=== PATIENT | female | born 1935 | race African-American/Black ===

== ENCOUNTER 2022-02-15 10:37 | Outpatient (REF) | payer MEDICARE, SELFPAY ==
[2022-02-15 12:34] LABS: Free T4 (Free Thyroxine) 0.91 ng/dL (0.71-1.85); TSH reflex Free T4 0.01 uIU/mL (0.32-4.0)
[2022-02-20 20:17] LABS: Thyrotropin Receptor Antibody <1.00 IU/L (<=2.00)
[2022-02-21 16:01] LABS: Thyroid Stimulating Immunoglob <89 % baseline (<140)
== END 2022-02-15 10:38 | disposition home or self-care (01) ==
LOC: HO.LAB 10:37
PROVIDERS: PCP Internal Medicine; Visit Provider Internal Medicine
DX: E05.90 Thyrotoxicosis, unspecified without thyrotoxic crisis or storm (principal); E11.65 Type 2 diabetes mellitus with hyperglycemia; I10 Essential (primary) hypertension; N39.41 Urge incontinence
CPT/HCPCS: 36415; 83520; 84439; 84443; 84445

== ENCOUNTER 2024-02-27 17:31 | Emergency (ER) | payer MEDICARE, SELFPAY ==
--- NOTE | ~2024-02-27 | XR_ITS ---
EXAMINATION: XR KNEE, LEFT CLINICAL INFORMATION: Fall. Pain. COMPARISON: None available. TECHNIQUE: 2 views of the left knee. FINDINGS: Intramedullary gene and 2 proximal screws in the visualized proximal tibial shaft. Bones are osteopenic. Bone alignment is normal. No acute fracture or dislocation. Degenerative changes at the knee joint with medial femoral tibial joint space narrowing, osteophytes at the patellofemoral joint and lateral meniscal calcification. Small osteophyte at the quadriceps tendon insertion to the patella. No significant joint effusion. XR/XR knee LT 2V IMPRESSION: Osteopenia and degenerative changes. No acute fracture or dislocation.
--- NOTE | ~2024-02-27 | XR_ITS ---
EXAMINATION: XR FOOT, RIGHT CLINICAL INFORMATION: Pain after fall, patient in overflow. COMPARISON: Left foot 02/27/2024. TECHNIQUE: AP, lateral, and oblique views of the right foot. FINDINGS: Small dorsal calcaneal spur. Ankle joint effusion. Advanced degenerative changes on limited views of the tibiotalar joint. Heterogeneous lucencies throughout the foot are suggestive of bony demineralization. Moderate degenerative changes in the first metatarsophalangeal joint with joint space narrowing and hypertrophic change as well as metatarsus adductus, hallux valgus, and medial soft tissue bunion. Mild degenerative changes in the interphalangeal joints of the toes. XR/XR foot RT min 3V IMPRESSION: 1. Ankle joint effusion. Advanced degenerative changes on limited views of the tibiotalar joint could be evaluated with dedicated views of the ankle. 2. Moderate degenerative changes in the first metatarsophalangeal joint. 3. Mild degenerative changes in the interphalangeal joints of the toes. Heterogeneous lucencies also noted in left foot images of 02/27/2024, characteristic for osteopenia possibly on the basis of disuse or neurogenic etiology. This study was presented today, 03/03/2024, for interpretation. Stat results provided at this time as requested by referring provider.
--- NOTE | ~2024-02-27 | XR_ITS ---
EXAMINATION: XR FOOT, LEFT CLINICAL INFORMATION: Trauma COMPARISON: None available. TECHNIQUE: AP, lateral, and oblique views of the left foot. FINDINGS: Oblique mildly displaced fracture of the neck of the second metatarsal. Plate and multiple screws through the first metatarsal, hardware are intact. Moderate to severe degenerative osteoarthritic changes of the first metatarsophalangeal joint. Mild degenerative osteoarthritis of the interphalangeal joints of other toes. Heterogeneous bone radiolucencies throughout the foot suggests bone demineralization probably disuse osteopenia versus neurogenic foot degenerative arthritic changes of the ankle seen at the margin of the study.. XR/XR foot LT min 3V IMPRESSION: 1. Oblique mildly displaced fracture of the neck of the second metatarsal. 2. Underlying degenerative osteoarthritis. 3. 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
--- NOTE | ~2024-02-27 | CT_ITS ---
EXAMINATION: CT CERVICAL SPINE WITHOUT CONTRAST CLINICAL INFORMATION: Fall COMPARISON: None available. TECHNIQUE: Axial images through the cervical spine without IV contrast. Sagittal and coronal reconstructions on the technologist workstation were performed. This CT examination was performed using dose optimization techniques as appropriate, variously including the following: *Automated exposure control *Adjustment of mA and/or kV according to patient size (this includes techniques or standardized protocols for targeted exams where dose is matched to indication/reason for exam; i.e. extremities or head) *Use of iterative reconstruction technique DLP: 873 mGy-cm or combined CT of the head and cervical spine FINDINGS: Mild anterior subluxation of C3 with respect to C4, C4 with respect to C5 and C7 with respect to T1 likely degenerative. Bone alignment is otherwise normal. No fracture or dislocation. Multilevel degenerative spondylosis and degenerative disc disease greatest at C4-C5, C5-C6 and C6-C7. Degenerative changes at the C1 dens articulation. Bilateral facet arthritis. Prevertebral soft tissues are normal. Small bilateral thyroid nodules. Based on patient age and nodule size less than 1 cm, no imaging follow-up recommended. Visualized lung apices are clear. CT/CT cervical spine wo IV con IMPRESSION: Degenerative changes. No fracture or dislocation. Fleischner guidelines were followed.
--- NOTE | ~2024-02-27 | CT_ITS ---
EXAMINATION: CT HEAD WITHOUT CONTRAST CLINICAL INFORMATION: Fall COMPARISON: None available. TECHNIQUE: Contiguous axial imaging was performed from the skull base to vertex without intravenous administration of contrast. This CT examination was performed using dose optimization techniques as appropriate, variously including the following: *Automated exposure control *Adjustment of mA and/or kV according to patient size (this includes techniques or standardized protocols for targeted exams where dose is matched to indication/reason for exam; i.e. extremities or head) *Use of iterative reconstruction technique DLP: 873 mGy-cm FINDINGS: There is no evidence of an extra-axial collection. There is no evidence of intra or extra-axial hemorrhage. The ventricles and extra-axial CSF spaces are slightly prominent suggestive of mild generalized atrophy. There is mild nonspecific periventricular white matter disease. No mass, mass effect or infarct. No skull fracture. Visualized paranasal sinuses, mastoid air cells and middle ears are clear. CT/CT head/brain wo IV con IMPRESSION: No acute intracranial findings. Mild generalized atrophy and nonspecific periventricular white matter disease.
--- NOTE | ~2024-02-27 | XR_ITS ---
EXAMINATION: XR ANKLE, LEFT CLINICAL INFORMATION: Fall. Pain. COMPARISON: None available. TECHNIQUE: AP, lateral, and mortise views of the left ankle. FINDINGS: There is an intramedullary gene and 2 distal screws in the visualized distal tibial shaft. There are old healed fractures of the distal shafts of the tibia and fibula. There is surgical hardware with plates and screws an old fracture of the first metatarsal bone. There is a partially visualized fracture of the second metatarsal shaft better evaluated on foot x-ray from the same day. No acute fracture or dislocation. Normal ankle mortise. Osteopenia. Calcaneal spurs. Diffuse soft tissue swelling of the lower leg and ankle. XR/XR ankle LT min 3V IMPRESSION: Osteopenia, old fractures in post surgical changes.. No acute fracture or dislocation seen.
--- NOTE | ~2024-02-27 | XR_ITS ---
EXAMINATION: XR HIP, LEFT CLINICAL INFORMATION: Fall. Pain. COMPARISON: None available. TECHNIQUE: Two views of the left hip. One view of the pelvis FINDINGS: The bones are osteopenic. No fracture or dislocation. Arthritis at both hip joints with joint space narrowing and osteophyte formation, right greater than left. Benign-appearing sclerotic density projects over the proximal femoral shaft. Degenerative changes of the visualized lower lumbar spine. Atherosclerotic disease. XR/XR hip LT w PEL1V IMPRESSION: No fracture or dislocation. Osteopenia and degenerative changes.
[2024-02-27 17:55] VITALS: BP 135/52; BP 150/80; PULSE 20; PULSE 91; RESP 16; TEMP 36.8; O2SAT 99; BMI 26.6
[2024-02-27 18:03] LABS: Glucose, Whole Blood 301 mg/dL (60-115)
--- NOTE | 2024-02-27 18:11 | ECG_ITS ---
Test Reason : FALL Blood Pressure : / mmHG Vent. Rate : 097 BPM Atrial Rate : 097 BPM P-R Int : 198 ms QRS Dur : 086 ms QT Int : 374 ms P-R-T Axes : 074 -10 029 degrees QTc Int : 474 ms Normal sinus rhythm Nonspecific T wave abnormality Prolonged QT Abnormal ECG No previous ECGs available Referred By: Syed Piedra Electronically Signed By:MASSIMO JEWELL MD
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
[2024-02-27 19:10] LABS: Basophils Percent Auto 0.3 % (0-2); Hemoglobin 13.7 g/dl (12.0-16.0); PLT CLUMP 1; Red Cell Distribution Width 12.9 % (11.0-16.0); SCAN SMEAR FLAG 1
[2024-02-27 19:12] LABS: Eosinophils Absolute Auto 0.1 X10*3/uL (0.0-0.4); Eosinophils Percent Auto 0.8 % (0-4); Hematocrit 41.2 % (37.0-47.0); Imm Gran Abs Auto 0.03 X10*3/uL (0.00-0.03); Imm Gran Pct Auto 0.4 % (0.0-0.4); Lymphocytes Absolute Auto 2.2 X10*3/uL (1.2-4.9); Lymphocytes Percent Auto 30.2 % (20-40); MANUAL DIFF FLAG SCAN; Mean Corpuscular HGB Conc 33.3 g/dl (31.0-35.0); Mean Corpuscular Hemoglobin 30.1 pg (27.0-33.0); Mean Corpuscular Volume 90.5 fL (80.0-98.0); Monocytes Absolute Auto 0.6 X10*3/uL (0.1-1.2); Monocytes Percent Auto 8.5 % (2-11); Neutrophils Absolute Auto 4.4 x10*3/uL (2.0-8.3); Neutrophils Percent Auto 59.8 % (45-73); Red Blood Count 4.55 X10*6/uL (4.20-5.50)
--- NOTE | 2024-02-27 19:13 | MHC.EDTECH ---
Patient was biba from home ,vitals taken,ekg done and was read by Provider ,blood drawn and sent to lab ,Patient was change into hospital gown ,Patient made a phone call to her sister ,Patient resting quietly in bed .
[2024-02-27 19:15] LABS: INTERNATIONAL NORM RATIO 0.8 (0.9-1.1); Prothrombin Time 9.6 SEC (11.1-13.3)
[2024-02-27 19:22] LABS: White Blood Count 7.4 X10*3/uL (4.8-10.8)
[2024-02-27 19:27] LABS: Alanine Aminotransferase 20 U/L (0-31); Albumin Level 4.1 g/dL (3.5-5.0); Alkaline Phosphatase 131 U/L (39-117); Anion Gap 14 (12-20); Aspartate Amino Transferase 19 U/L (5-31); Bilirubin Total 0.4 mg/dL (0.0-1.0); Blood Urea Nitrogen 11 mg/dL (9-16); Calcium 9.6 mg/dL (8.4-10.2); Carbon Dioxide 25 mmol/L (22-29); Chloride 103 mmol/L (96-108); Creatinine Clr Calc Pharmacy 50.5; Estimated Glomerular Filt Rate > 60; Glucose Random 321 mg/dL (60-115); Lipase 22 U/L (8-78); Potassium 4.3 mmol/L (3.3-5.1); Sodium 138 mmol/L (135-145); Total Protein 6.9 g/dL (6.5-8.0)
[2024-02-27 19:46] LABS: Platelet Count 222 X10*3/uL (160-400)
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
[2024-02-27 19:47] LABS: SLIDE REVIEW VERIFIED
[2024-02-27] MEDS: Acetaminophen 325 MG TABLET 650 MG PO (19:58)
[2024-02-27 20:00] VITALS: BP 148/83; PULSE 92; RESP 16; TEMP 36.6; O2SAT 97
--- NOTE | 2024-02-27 20:06 | PC.NURSE ---
this rn assumed care of pt, pt resting in stretcher, no acute distress noted. pt medicated per mar for left sided pain.
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
[2024-02-27 21:42] LABS: Troponin-I High Sensitivity 15.9 ng/L (<3.5-17.0)
[2024-02-27 22:00] VITALS: BP 146/75; PULSE 93; RESP 16; TEMP 36.7; O2SAT 97
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
--- NOTE | 2024-02-27 22:56 | MHC.EDTECH ---
PATIENT BELONGING LIST DONE AND ALL BELONINGS AT BEDSIDE ,,VITALS TAKEN ,POST OPP SHOE GIVEN PATIENT ANKLE BROKEN ,PATIENT SLEEPING ,CALL LAW WITHIN PATIENT REACH .
--- NOTE | 2024-02-27 23:24 | MHC.EDTECH ---
patient blood sugar check RN awre of 260 result .
[2024-02-27 23:25] LABS: Glucose, Whole Blood 260 mg/dL (60-115)
--- NOTE | 2024-02-28 00:32 | MHC.EDTECH ---
0000 ROUNDING DONE ,PATIENT SLEEPING ,CALL LAW WITHIN PATIENT REACH .
[2024-02-28 06:21] VITALS: BP 150/83; PULSE 91; RESP 16; TEMP 36.4; O2SAT 98
--- NOTE | 2024-02-28 06:31 | MHC.EDTECH ---
Patient slept all night ,Patient awake now ,0600 rounding done ,vitals taken ,patient was change and saran care given ,450 ml urine empty from Pure wick ,Patient watching television call kilgore at Patient reach .
--- NOTE | 2024-02-28 07:55 | PC.NURSE ---
PT TRANFERED FROM MAIN ED TO OVERFLOW BED 3 VIA STRETCHER. RN TO RN REPORT RECEIVED.
[2024-02-28 08:06] VITALS: BP 152/81; PULSE 95; RESP 16; TEMP 36.4; O2SAT 99
--- NOTE | 2024-02-28 08:08 | PC.NURSE ---
PT IS A/O X 3 NO SOB/MARY NOTED SPEAKS IN FULL SENTENCES. PT SPEAKS IN FULL SENTENCES. PT DENIES ANY PAIN/DISC. BED ALARM ON. PT AWARE OF PLAN OF CARE. WILL CONTINUE TO MONITOR.
[2024-02-28] MEDS: Acetaminophen 325 MG TABLET 975 MG PO ×2 (10:17→20:00)
[2024-02-28 10:54] VITALS: BP 126/68; PULSE 100; O2SAT 68
[2024-02-28 11:53] LABS: Glucose, Whole Blood 358 mg/dL (60-115)
--- NOTE | 2024-02-28 12:56 | PHA.MEDREC ---
Pharmacy Consult ? Medication Reconciliation Pharmacy has completed the medication reconciliation. Confirmed med rec complete by nursing. Duplicate medications removed.
[2024-02-28] MEDS: Atorvastatin Calcium 10 MG TABLET PO (13:39)
[2024-02-28] MEDS: Empagliflozin 10 MG TABLET PO (13:39)
[2024-02-28] MEDS: glipiZIDE 10 MG TABLET PO (13:39)
[2024-02-28] MEDS: SITagliptin Phosphate 100 MG TABLET PO (13:39)
[2024-02-28] MEDS: Aspirin Enteric Coated 81 MG TABLET.DR PO (13:40)
[2024-02-28] MEDS: Omeprazole 20 MG CAPSULE.DR PO (13:41)
[2024-02-28 14:08] VITALS: BP 126/84; PULSE 98; RESP 14; TEMP 36.6; O2SAT 98
[2024-02-28 19:37] VITALS: BP 110/56; PULSE 107; RESP 17; TEMP 36.8; O2SAT 97
--- NOTE | 2024-02-28 20:37 | PC.NURSE ---
This insurance underwriter sales assumed care of this Pt at 1900. Pt A&Ox3, reports 10 Right shoulder pain, Pt medicated per JAN. Pt refused 2099 medication states I do not take those .
--- NOTE | 2024-02-29 06:03 | PC.NURSE ---
Pt repositioned, purewich replaced. Skin intact, warm and dry.
[2024-02-29 06:11] VITALS: BP 149/83; PULSE 97; RESP 16; TEMP 36.8; O2SAT 98
[2024-02-29] MEDS: Omeprazole 20 MG CAPSULE.DR PO (06:53)
[2024-02-29 07:34] LABS: Glucose, Whole Blood 180 mg/dL (60-115)
[2024-02-29] MEDS: Insulin Lispro 100 UNIT/ML 3 ML VIAL SUBCUT ×3 (08:11→21:45)
[2024-02-29] MEDS: Acetaminophen 325 MG TABLET 975 MG PO ×2 (08:12→18:39)
[2024-02-29] MEDS: Atorvastatin Calcium 10 MG TABLET PO (08:13)
[2024-02-29] MEDS: Aspirin Enteric Coated 81 MG TABLET.DR PO (08:13)
[2024-02-29] MEDS: SITagliptin Phosphate 100 MG TABLET PO (08:17)
[2024-02-29] MEDS: glipiZIDE 10 MG TABLET PO ×2 (08:17→21:45)
[2024-02-29] MEDS: Empagliflozin 10 MG TABLET PO (08:17)
--- NOTE | 2024-02-29 11:11 | MHC.EDTECH ---
Pt bedding linens changed. Linens now clean and dry. Assisted pt washing up. Pt moved to chair and positioned for comfort. Pt tolerated moving to chair well. New PureWick placed. Pt states she is comfortable. Patient resting at this time, respirations even and unlabored. Call kilgore placed within reach.
[2024-02-29 13:16] LABS: Glucose, Whole Blood 126 mg/dL (60-115)
[2024-02-29 14:45] VITALS: PULSE 98; RESP 16; TEMP 36.9; O2SAT 98
--- NOTE | 2024-02-29 15:15 | MHC.CM.PN ---
PT recommends STR. [facility] has offered a bed. The patient accepts the bed. The STR has started auth. Plan is to DC tomorrow via BLS. for tomorrow.
[2024-02-29 18:17] LABS: Glucose, Whole Blood 169 mg/dL (60-115)
[2024-02-29 20:34] LABS: Glucose, Whole Blood 254 mg/dL (60-115)
[2024-02-29 20:45] VITALS: BP 109/55; PULSE 96; RESP 16; TEMP 36.7; O2SAT 96
[2024-02-29] MEDS: Amitriptyline HCl 25 MG TABLET PO (21:45)
--- NOTE | 2024-02-29 21:50 | PC.NURSE ---
Patient is alert and oriented x2-place and person, forgetful at times, VSS. Patient denies any pain at rest. Patient medicated with bedtime medications. She offers no complains at this time. Pure wick in place, call kilgore in patient's reach.
--- NOTE | 2024-03-01 02:35 | PC.NURSE ---
this rn assumed care of pt, pt resting in stretcher, no acute distress noted, respirations even and unlabored, purewick in place.
[2024-03-01] MEDS: Acetaminophen 325 MG TABLET 975 MG PO ×2 (05:12→18:26)
[2024-03-01 07:17] VITALS: BP 113/59; PULSE 107; RESP 16; TEMP 36.6; O2SAT 98
--- NOTE | 2024-03-01 07:19 | PC.NURSE ---
patient awake and alert to person, place, time and situation. speaking in full, clear sentences. c/o 9/10 pain to left leg, positive csm. pt aware of plan of care for transfer to rehab today.
[2024-03-01 07:38] LABS: Glucose, Whole Blood 177 mg/dL (60-115)
[2024-03-01] MEDS: Atorvastatin Calcium 10 MG TABLET PO (07:59)
[2024-03-01] MEDS: Omeprazole 20 MG CAPSULE.DR PO (07:59)
[2024-03-01] MEDS: Insulin Lispro 100 UNIT/ML 3 ML VIAL SUBCUT ×3 (07:59→22:21)
[2024-03-01] MEDS: Aspirin Enteric Coated 81 MG TABLET.DR PO (08:00)
[2024-03-01] MEDS: glipiZIDE 10 MG TABLET PO ×2 (10:09→22:21)
[2024-03-01] MEDS: Empagliflozin 10 MG TABLET PO (10:10)
[2024-03-01] MEDS: SITagliptin Phosphate 100 MG TABLET PO (10:10)
[2024-03-01 10:12] VITALS: PULSE 100
[2024-03-01 10:48] LABS: COVID-19 Test Negative (Negative); IDNOW Serial# 58CA691E
[2024-03-01 13:26] LABS: Glucose, Whole Blood 128 mg/dL (60-115)
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
--- NOTE | 2024-03-01 16:30 | PC.NURSE ---
Patient incontinent of watery diarrhea. Christelle care and clean linen provided. Patient reports shoulder pain, patient ID bracelet missing, will obtain new bracelet and give tylenol.
[2024-03-01 16:45] LABS: Glucose, Whole Blood 246 mg/dL (60-115)
--- NOTE | 2024-03-01 16:51 | PC.NURSE ---
Patient resting comfortably at this time, patient awoken for POC and insulin administration, patient reports no pain at this time, lights dimmed, patient to nap at this time.
[2024-03-01 18:22] VITALS: BP 142/68; PULSE 110; RESP 18; TEMP 36.6; O2SAT 97
[2024-03-01 20:18] VITALS: BP 120/62; PULSE 104; RESP 16; TEMP 36.9; O2SAT 97
--- NOTE | 2024-03-01 20:19 | PC.NURSE ---
assumed care of pt 1914. pt resting comfortably in bed. incontinent of urine. saran care provided. linen changed. pt repositioned to left side. warm blankets provided. vss. pt is watching tv in room. bed alarm on. pt is axox3 at this time able to recall reason pt was brought into ED and make needs known. call kilgore within reach.
[2024-03-01 21:16] LABS: Glucose, Whole Blood 248 mg/dL (60-115)
[2024-03-01] MEDS: Amitriptyline HCl 25 MG TABLET PO (22:21)
--- NOTE | 2024-03-01 22:33 | PC.NURSE ---
pt tolerated meds well with diet gingerale per request. pt medicated per jan. lights turned off per pt request. pt is calm/cooperative pleasant at this time. bed alarm on. pt is across nurses station. nad. call kilgore and belongings within reach.
[2024-03-02] MEDS: Omeprazole 20 MG CAPSULE.DR PO (05:40)
[2024-03-02 06:00] VITALS: BP 140/78; PULSE 99; RESP 16; TEMP 36.9; O2SAT 97
--- NOTE | 2024-03-02 06:32 | PC.NURSE ---
pt was resting comfortably in bed. pt has purewick 600mL urine output. however pt found to be incontinent as well; saran care provided linen changed. pt repositioned. nad. bed alarm certification technician kilgore within reach using appropriately.
--- NOTE | 2024-03-02 06:33 | MHC.EDTECH ---
PT changed in bed
[2024-03-02 07:47] LABS: Glucose, Whole Blood 118 mg/dL (60-115)
[2024-03-02] MEDS: Empagliflozin 10 MG TABLET PO (08:33)
[2024-03-02] MEDS: Aspirin Enteric Coated 81 MG TABLET.DR PO (08:33)
[2024-03-02] MEDS: Atorvastatin Calcium 10 MG TABLET PO (08:33)
--- NOTE | 2024-03-02 08:36 | PC.NURSE ---
Assumed care of patient at 0700. Patient reports no pain at this time, morning meds given per MAR. Patient sitting up in bed eating breakfast, will continue to monitor.
[2024-03-02] MEDS: SITagliptin Phosphate 100 MG TABLET PO (09:09)
[2024-03-02] MEDS: glipiZIDE 10 MG TABLET PO ×2 (09:09→21:32)
--- NOTE | 2024-03-02 10:42 | MHC.EDTECH ---
This tech assisted Pt with getting washed up. Pt used the commode and urinated. Pt ate 100% of her breakfast and 240cc of fluids.
--- NOTE | 2024-03-02 10:45 | PC.NURSE ---
Comfort called from [facility] health services called for update, awaiting [facility] insurance auth, notified Ghislaine Moyer phone number [phone]
--- NOTE | 2024-03-02 11:25 | PC.NURSE ---
Basim from [facility] services called for update, she is going to come and see patient. Let her know [facility] is the plan, awaiting insurance auth. Her phone number is [phone] ex:[phone].
--- NOTE | 2024-03-02 12:16 | MHC.CM.ED ---
Addendum entered by Nelly Valdes 03/02/24 15:32: Received voicemail from Reginaldo at [facility] stating [facility] is not a preferred facility. Requesting call back with facilities that have denied patient. T/W attempted to reach Reginaldo via telephone at [phone]. Left message providing facilities that have denied patient. Waiting for return telephone call from [facility]. Original Note: Patient remains in ER overflow. [facility] is in the process of obtaining insurance auth. Piper from [facility] on-site to visit patient. Piper can be reached via telephone at [phone]. Patient has been referred to [facility] multiple times. Patient appears to get paranoid at night and has called Sharifa DUNN almost nightly. Piper met with patient on Monday 02/26 around 12pm. Patient was completely alert and oriented at that time per Piper. Patient's son does have a history of substance abuse issues but does not come around patient. Piper feels STR is appropriate for patient. Continue to monitor for d/c needs.
--- NOTE | 2024-03-02 12:30 | MHC.EDTECH ---
PT ate 75% of her lunch, 240cc of fluids
[2024-03-02] MEDS: Insulin Lispro 100 UNIT/ML 3 ML VIAL SUBCUT ×2 (12:38→21:33)
--- NOTE | 2024-03-02 12:41 | PC.NURSE ---
Patient sitting up in bed eating lunch, no complaints at this time.
--- NOTE | 2024-03-02 13:23 | MHC.EDTECH ---
This tech assisted PT to the commode. Pt urinated and is sitting on the side of the bed.
[2024-03-02 14:00] VITALS: BP 93/52; PULSE 76; RESP 17; TEMP 37; O2SAT 95
--- NOTE | 2024-03-02 14:02 | PC.NURSE ---
Patient currently resting in bed.
[2024-03-02 14:07] VITALS: BP 119/57
--- NOTE | 2024-03-02 16:48 | MHC.CM.ED ---
CM received a call from Ted at [facility] ([phone]). Per Ted, the medical grade shoemaker has denied request for STR. Will need a peer to peer review. Requesting provider name and contact information. Provider gone for the day. Will address in the morning. Ted requests call before 12 noon on 03/03/24.
--- NOTE | 2024-03-02 20:16 | PC.NURSE ---
pt assessed, denies any pain, oob with 1 max assist to the commode, bed ALARM
[2024-03-02] MEDS: Amitriptyline HCl 25 MG TABLET PO (21:32)
[2024-03-02 22:00] VITALS: BP 151/58; PULSE 99; RESP 16; TEMP 36.9; O2SAT 94
[2024-03-03] MEDS: Acetaminophen 325 MG TABLET 975 MG PO ×3 (01:00→21:32)
--- NOTE | 2024-03-03 01:01 | PC.NURSE ---
pt c/o right knee pain, medicated per mar
[2024-03-03 03:30] VITALS: BP 130/67; PULSE 93; RESP 12; TEMP 36.3; O2SAT 96
--- NOTE | 2024-03-03 05:22 | PC.NURSE ---
pt slept during the night, purwick in place, no pain observed
[2024-03-03] MEDS: Omeprazole 20 MG CAPSULE.DR PO (05:36)
--- NOTE | 2024-03-03 08:45 | MHC.CM.ED ---
Addendum entered by Nelly Valdes 03/03/24 12:25: Rain DANIEL spoke with Dr Richardson at [facility]. Dr Richardson requesting additional PT and OT notes stating patient requires assistance not supervision . These evals have been ordered by Rain DANIEL. Per Reginaldo at [facility], all 25 facilities locally contracted with patient's insurance will need to deny patient before they would authorize [facility]. Still waiting to hear from [facility]. Original Note: Patient remains in ER overflow. Rain DANIEL aware [facility] is declining STR. Also aware peer to peer will need to be completed. Rain DANIEL agreeable. T/W attempted to notify Reginaldo of [facility] about his via telephone at [phone]. Left message with Rain's contact information. Continue to monitor for d/c needs.
[2024-03-03] MEDS: Empagliflozin 10 MG TABLET PO (08:52)
[2024-03-03] MEDS: glipiZIDE 10 MG TABLET PO ×2 (08:52→21:33)
[2024-03-03] MEDS: SITagliptin Phosphate 100 MG TABLET PO (08:52)
[2024-03-03] MEDS: Atorvastatin Calcium 10 MG TABLET PO (08:52)
[2024-03-03] MEDS: Aspirin Enteric Coated 81 MG TABLET.DR PO (08:52)
--- NOTE | 2024-03-03 12:20 | MHC.EDTECH ---
Patient refused, POC, Stating she doesnt want anything from this place
[2024-03-03 13:15] VITALS: BP 130/67; PULSE 93; O2SAT 96
[2024-03-03 15:38] LABS: Glucose, Whole Blood 138 mg/dL (60-115)
[2024-03-03 15:38] LABS: Glucose, Whole Blood 144 mg/dL (60-115)
[2024-03-03 15:38] LABS: Glucose, Whole Blood 236 mg/dL (60-115)
[2024-03-03 15:38] LABS: Glucose, Whole Blood 215 mg/dL (60-115)
[2024-03-03 15:39] LABS: Glucose, Whole Blood 142 mg/dL (60-115)
--- NOTE | 2024-03-03 16:22 | PC.NURSE ---
Patient has been non-compliant with care, refusing POC, meal trays, medication. C/O pain but refusing to take pain medication, trying to get out of bed asking to be dressed and taken home. Patient very demanding, utilizing call constantly and yelling out for nurse. Patient is forgetful and confused, accusing hospital staff of taking her belongings. Needs frequent redirection and help locating her phone, glasses etc.
--- NOTE | 2024-03-03 19:28 | PC.NURSE ---
pt skin assessed, pt has wound on right buttock, no drainage observed,
[2024-03-03 20:59] LABS: Glucose, Whole Blood 197 mg/dL (60-115)
[2024-03-03 21:21] VITALS: BP 126/63; PULSE 102; RESP 16; TEMP 36.4; O2SAT 96
[2024-03-03] MEDS: Amitriptyline HCl 25 MG TABLET PO (21:33)
[2024-03-03] MEDS: Insulin Lispro 100 UNIT/ML 3 ML VIAL SUBCUT (21:34)
--- NOTE | 2024-03-03 21:42 | PC.NURSE ---
pt tolerated crushed medications in pudding, no difficulty swallowing, Tylenol for bilateral feet pain. bed alarm on for safety
[2024-03-04] MEDS: Omeprazole 20 MG CAPSULE.DR PO (05:38)
[2024-03-04] MEDS: Morphine Sulfate Immed Release 15 MG TABLET PO (05:40)
[2024-03-04 06:00] VITALS: BP 125/68; PULSE 87; RESP 18; TEMP 37.1; O2SAT 96
[2024-03-04 07:47] LABS: Glucose, Whole Blood 147 mg/dL (60-115)
[2024-03-04 08:18] VITALS: BP 135/69; PULSE 91; RESP 16; TEMP 36.8
[2024-03-04] MEDS: Atorvastatin Calcium 10 MG TABLET PO (08:18)
[2024-03-04] MEDS: SITagliptin Phosphate 100 MG TABLET PO (08:18)
[2024-03-04] MEDS: glipiZIDE 10 MG TABLET PO ×2 (08:18→21:02)
[2024-03-04] MEDS: Empagliflozin 10 MG TABLET PO (08:18)
[2024-03-04] MEDS: Aspirin Enteric Coated 81 MG TABLET.DR PO (08:18)
[2024-03-04 11:04] LABS: Glucose, Whole Blood 169 mg/dL (60-115)
[2024-03-04] MEDS: Insulin Lispro 100 UNIT/ML 3 ML VIAL SUBCUT ×2 (12:06→21:02)
--- NOTE | 2024-03-04 13:37 | MHC.CM.ED ---
Patient remains in ER. Received telephone call from Ted at [facility] that SNF auth was denied and appeal can be filed by calling [phone] with reference #[id number]. T/W attempted to file an appeal for patient. Was transferred to multiple operators before being told by Jerry, [facility] employee, that the appeal could be faxed to [phone]. T/W inquired about what needed to be faxed since a denial letter was not obtained. Jerry stated there was no denial letter in patient's record. T/W questioned how appeal information was supposed to be faxed when no physical documentation about appeal was provided. Jerry stated [facility] denial letter would be faxed to office at [phone] within 24 hours. Continue to monitor for d/c needs.
[2024-03-04 15:47] VITALS: BP 121/71; PULSE 92; RESP 18; TEMP 36.5; O2SAT 98
[2024-03-04 16:54] LABS: Glucose, Whole Blood 131 mg/dL (60-115)
--- NOTE | 2024-03-04 17:48 | PC.NURSE ---
Pt A/Ox2. Pleasant and cooperative with staff. Seen by OT today. Took meds whole with no issues. Awaiting placement.
[2024-03-04 19:20] VITALS: BP 123/63; PULSE 98; RESP 16; TEMP 37.1; O2SAT 96
--- NOTE | 2024-03-04 19:40 | PC.NURSE ---
Assumed care of patient at 19:15 this evening. Pt is A&Ox2 to self and year but states today is Friday. Pt is confused and accusatory during conversation with account underwriter and DEMENTIA PROGRAM DIRECTOR present during incontinence care/initial interaction; pt states people are going through her purse. Follows basic commands. MAEE. Denies pain. Breathing is even and unlabored without distress. VSS. +radial and dp pulses, +cms. Abd soft, non-tender. Small stage II noted to right buttock. Pt states I have that on my butt from when I fell in the streets . Triad and foam applied. Bed alarm on and call kilgore within reach. Safety measures implemented.
--- NOTE | 2024-03-04 20:23 | MHC.EDTECH ---
Late entry: At 1930 Pt found to be incontinent of urine. This tech and RN changed pads, cleaned Pt, and new purewick placed. Pt repositioned and sat up. Pt requested cranberry juice, this was brought to her.
[2024-03-04 20:54] LABS: Glucose, Whole Blood 285 mg/dL (60-115)
[2024-03-04] MEDS: Melatonin 3 MG TABLET PO (21:02)
[2024-03-04] MEDS: Amitriptyline HCl 25 MG TABLET PO (21:02)
[2024-03-04 22:02] VITALS: RESP 16
[2024-03-05 05:34] VITALS: BP 127/73; PULSE 86; RESP 18; TEMP 36.4; O2SAT 98
[2024-03-05] MEDS: Omeprazole 20 MG CAPSULE.DR PO (06:01)
[2024-03-05 07:13] LABS: Glucose, Whole Blood 94 mg/dL (60-115)
[2024-03-05 07:38] VITALS: BP 118/63; PULSE 76; RESP 16; TEMP 36.6; O2SAT 99
[2024-03-05] MEDS: Morphine Sulfate Immed Release 15 MG TABLET PO (09:03)
[2024-03-05] MEDS: glipiZIDE 10 MG TABLET PO ×2 (09:04→20:39)
[2024-03-05] MEDS: Empagliflozin 10 MG TABLET PO (09:04)
[2024-03-05] MEDS: SITagliptin Phosphate 100 MG TABLET PO (09:04)
[2024-03-05] MEDS: Aspirin Enteric Coated 81 MG TABLET.DR PO (09:04)
[2024-03-05] MEDS: Atorvastatin Calcium 10 MG TABLET PO (09:04)
--- NOTE | 2024-03-05 09:15 | PC.NURSE ---
PHYSICAL THERAPY AT BEDSIDE PT AWARE OF PLAN OF CARE.
--- NOTE | 2024-03-05 09:38 | MHC.CM.ED ---
Addendum entered by Nelly Valdes 03/05/24 14:50: Piper from [facility] updated about d/c plan. Original Note: Patient remains in ER overflow. SNF denial letter obtained from [facility]. Copy provided to patient. Appeal letter and appropriate clinical documentation sent to [facility] by T/W. [facility] has 72 hours to review appeal. Continue to monitor for d/c needs.
--- NOTE | 2024-03-05 10:31 | PC.NURSE ---
PT IS A/O X 4 NO SOB/MARY NOTED SPEAKS IN FULL SENTENCES. PT C/O / R SHOULDER/HIP/FOOT AND L ANKLE PAIN. PT AWARE OF PLAN OF CARE. WILL CONTINUE TO MONITOR.
--- NOTE | 2024-03-05 10:47 | MHC.EDTECH ---
washed up/ perick in place ate 75% of breakfast
[2024-03-05 11:30] LABS: Glucose, Whole Blood 161 mg/dL (60-115)
[2024-03-05] MEDS: Insulin Lispro 100 UNIT/ML 3 ML VIAL SUBCUT ×2 (12:39→22:06)
[2024-03-05 14:36] VITALS: BP 113/58; PULSE 91; RESP 16; TEMP 36.4; O2SAT 96
[2024-03-05 16:50] LABS: Glucose, Whole Blood 137 mg/dL (60-115)
--- NOTE | 2024-03-05 17:14 | PC.NURSE ---
Patient states she doesn't have her dentures can't chew her food can you change her diet to mechanical soft diet notified Nemo DANIEL.
[2024-03-05] MEDS: Amitriptyline HCl 25 MG TABLET PO (20:39)
[2024-03-05 21:03] VITALS: BP 114/63; PULSE 108; RESP 17; TEMP 36.9; O2SAT 96
[2024-03-05 21:15] LABS: Glucose, Whole Blood 222 mg/dL (60-115)
--- NOTE | 2024-03-05 21:51 | MHC.CM.ED ---
Updated primary RN on plan of care. Previous CM filed an appeal to [facility] denial for STR. [facility] has 72 hours to respond to appeal. Pt to remain in ED until safe discharge plan can be made.
--- NOTE | 2024-03-06 04:29 | MHC.EDTECH ---
PT RESTING IN BED RESPIRATIONS EVEN AND UNLABORED CALL LIGHT WITHIN REACH PLAN OF CARE ONGOING
--- NOTE | 2024-03-06 05:25 | PC.NURSE ---
Assumed care of patient at 23:30. Patient remains in ED overflow for PT/CM/facility search/safe discharge plan. Pt is A&Ox3 this shift, disoriented to time, remains forgetful/confused. Breathing is even and unlabored on RA. Voids cyu in adequate amounts using purewick for incontinence. BM x1 on commode with staff assistance this morning. Denies c/p, sob, n/v, pain. Barrier cream to buttocks and assisted with frequent repositioning. Pt resting in bed at this time in no apparent distress. Bed alarm on and safety measures in place.
[2024-03-06] MEDS: Omeprazole 20 MG CAPSULE.DR PO (05:47)
[2024-03-06 05:50] VITALS: BP 126/68; PULSE 97; RESP 18; TEMP 36.3; O2SAT 96
[2024-03-06] MEDS: SITagliptin Phosphate 100 MG TABLET PO (08:42)
[2024-03-06] MEDS: Aspirin Enteric Coated 81 MG TABLET.DR PO (08:42)
[2024-03-06] MEDS: Atorvastatin Calcium 10 MG TABLET PO (08:42)
[2024-03-06] MEDS: glipiZIDE 10 MG TABLET PO ×2 (08:42→21:39)
[2024-03-06] MEDS: Insulin Lispro 100 UNIT/ML 3 ML VIAL SUBCUT ×3 (08:42→21:39)
[2024-03-06] MEDS: Empagliflozin 10 MG TABLET PO (08:42)
[2024-03-06 09:04] LABS: Glucose, Whole Blood 214 mg/dL (60-115)
[2024-03-06 12:06] LABS: Glucose, Whole Blood 183 mg/dL (60-115)
[2024-03-06 15:43] VITALS: BP 138/60; PULSE 86; RESP 18; TEMP 36.1; O2SAT 97
[2024-03-06 16:27] LABS: Glucose, Whole Blood 107 mg/dL (60-115)
--- NOTE | 2024-03-06 20:16 | PC.NURSE ---
Assumed care of the patient at 19:00. Patient remains in ED overflow for PT/CM, bed search for STR. Patient alert and oriented to place and person, disoriented to time, forgetful, confused at times. She denies any pain at present and resting comfortable in a recliner chair with purewick in place.. Patient brought to this RN attention that her hickey are missing. This RN and tech looked through patient's belongings and there are no keys found. Patient's belongings list checked and noted the keys listed. Patient states don't worry about the keys, I have duplicates made at home . Elma, charge nurse made aware. Call kilgore within patient's reach. Plan of care ongoing.
[2024-03-06 20:56] LABS: Glucose, Whole Blood 218 mg/dL (60-115)
[2024-03-06 21:37] VITALS: BP 119/69; PULSE 107; RESP 18; TEMP 36.7; O2SAT 95
[2024-03-06] MEDS: Amitriptyline HCl 25 MG TABLET PO (21:39)
[2024-03-07 04:56] VITALS: BP 124/65; PULSE 99; RESP 16; TEMP 36.7; O2SAT 98
[2024-03-07] MEDS: Omeprazole 20 MG CAPSULE.DR PO ×2 (05:45)
[2024-03-07 08:05] LABS: Glucose, Whole Blood 172 mg/dL (60-115)
[2024-03-07] MEDS: Insulin Lispro 100 UNIT/ML 3 ML VIAL SUBCUT ×3 (08:24→21:20)
[2024-03-07] MEDS: Empagliflozin 10 MG TABLET PO (08:25)
[2024-03-07] MEDS: Aspirin Enteric Coated 81 MG TABLET.DR PO (08:25)
[2024-03-07] MEDS: Atorvastatin Calcium 10 MG TABLET PO (08:25)
[2024-03-07] MEDS: SITagliptin Phosphate 100 MG TABLET PO (08:25)
[2024-03-07] MEDS: glipiZIDE 10 MG TABLET PO ×2 (08:25→21:20)
--- NOTE | 2024-03-07 10:02 | MHC.CM.ED ---
Patient remains in ER overflow. [facility] denied auth for STR. Appeal was filed on Monday 03/05. [facility] has 72 hours to review. Continue to monitor for d/c needs.
--- NOTE | 2024-03-07 11:42 | PC.NURSE ---
Patient is A&O x1 with moments of clarity. Patient is 1 assist with walker to commode. Respirations even and unlabored, vss. Patient reports no pain. Plan is for insuruance appeal, will get update on Friday. Patient reported to shift superintendent caustic cresylate nurse that her keys were missing. Family member brought back keys this AM.
[2024-03-07 11:58] LABS: Glucose, Whole Blood 247 mg/dL (60-115)
[2024-03-07 14:00] VITALS: BP 115/50; PULSE 100; RESP 18; TEMP 36.6; O2SAT 98
[2024-03-07 16:25] LABS: Glucose, Whole Blood 146 mg/dL (60-115)
--- NOTE | 2024-03-07 18:05 | PC.NURSE ---
Patient repositioned to recyliner, saran care provided, brief changed, and dressed in new hospital gown.
[2024-03-07 21:00] VITALS: BP 119/56; PULSE 100; RESP 12; TEMP 36.4; O2SAT 96
[2024-03-07 21:14] LABS: Glucose, Whole Blood 194 mg/dL (60-115)
[2024-03-07] MEDS: Melatonin 3 MG TABLET PO (21:20)
[2024-03-07] MEDS: Amitriptyline HCl 25 MG TABLET PO (21:20)
[2024-03-07] MEDS: Acetaminophen 325 MG TABLET 975 MG PO (21:21)
--- NOTE | 2024-03-07 21:32 | PC.NURSE ---
Assumed care of this patient at 1900, patient assisted x1 to commode, resting quietly on recliner at this time, vital signs WNL, pm medications given per jan.
--- NOTE | 2024-03-07 23:43 | PC.NURSE ---
Assumed care of patient at 23:30. A&Ox2 to self and year, disoriented to place and time of day, situation. Resting in chair watching TV, assisted back to bed with walker and carbonator. Patient is confused, paranoid, easily upset/agitated during care but calms when allowed to rest. Breathing is even and unlabored without distress on RA. Denies pain and offered pain meds, states I don't want nothing from you . Walking boot in place to left foot as ordered. Purewick placed for incontinence. Triad and foam to stage II on buttock. Bed alarm on and red socks in place, patient visible from nursing station.
[2024-03-08 06:00] VITALS: BP 136/69; PULSE 108; RESP 18; TEMP 36.6; O2SAT 97
[2024-03-08] MEDS: Omeprazole 20 MG CAPSULE.DR PO (06:06)
[2024-03-08 07:35] LABS: Glucose, Whole Blood 115 mg/dL (60-115)
[2024-03-08 07:59] VITALS: BP 115/55; PULSE 81; RESP 18; TEMP 36.2; O2SAT 95
[2024-03-08] MEDS: Aspirin Enteric Coated 81 MG TABLET.DR PO (08:03)
[2024-03-08] MEDS: Empagliflozin 10 MG TABLET PO (08:04)
[2024-03-08] MEDS: SITagliptin Phosphate 100 MG TABLET PO (08:05)
[2024-03-08] MEDS: glipiZIDE 10 MG TABLET PO ×2 (08:05→20:36)
[2024-03-08] MEDS: Atorvastatin Calcium 10 MG TABLET PO (08:08)
--- NOTE | 2024-03-08 09:17 | PC.NURSE ---
PT IS A/O X 4. NO SOB/MARY NOTED. SPEAKS IN FULL SENTENCES. PT ATE 100% OF BREAKFAST. PT DENIES ANY PAIN/DISC. PT HAS A ORTHOTIC BOOT TO L FOOT. NO SWELLING NOTED. PT AWARE OF PLAN OF CARE.. WILL CONTINUE TO MONITOR.
--- NOTE | 2024-03-08 10:11 | MHC.EDTECH ---
Patient washed up and oral care completed. Patient assisted out of bed by 2 person assist and assisted into recliner. Linens changed and clean. Patient states she is comfortable. Call kilgore placed within reach. Patient resting, respirations even and unlabored.
--- NOTE | 2024-03-08 10:39 | MHC.CM.ED ---
Patient remains in ER overflow. Denial for STR was appealed on Friday. Received request for authorization for appointment of representation form. Form completed, signed by patient and faxed to [facility]. Continue to monitor for d/c needs.
[2024-03-08 11:59] LABS: Glucose, Whole Blood 93 mg/dL (60-115)
--- NOTE | 2024-03-08 13:20 | PC.NURSE ---
PHYSICAL THERAPIST AT BEDSIDE, PT AWARE OF PLAN OF CARE.
[2024-03-08] MEDS: Acetaminophen 325 MG TABLET 975 MG PO (14:50)
[2024-03-08 14:59] VITALS: BP 123/66; PULSE 97; RESP 16; TEMP 36.7; O2SAT 97
--- NOTE | 2024-03-08 15:00 | PC.NURSE ---
LESS THAN DIME SIZE OPEN AREA NOTED TO RIGHT SIDE OF BUTTOCKS. ALLEVYN APPLIED FOR TO OPEN AREA. MLP AWARE.
[2024-03-08 16:55] LABS: Glucose, Whole Blood 151 mg/dL (60-115)
[2024-03-08] MEDS: Insulin Lispro 100 UNIT/ML 3 ML VIAL SUBCUT ×2 (16:57→20:36)
--- NOTE | 2024-03-08 20:30 | PC.NURSE ---
pt sister called to speak with this rn wanted to make sure pt had phone charge this rn assisted pt in looking for phone general lot attendant no phone general lot attendant located made sister aware. phone is charged at this time attempting to locate compatible charge for phone pt sister wanted to also make sure pt had access to peanut butter crackers and bananas. pt crackers and bananas in night stand drawer. pt aware
[2024-03-08 20:34] LABS: Glucose, Whole Blood 211 mg/dL (60-115)
[2024-03-08] MEDS: Amitriptyline HCl 25 MG TABLET PO (20:36)
[2024-03-08 22:00] VITALS: BP 132/69; PULSE 89; RESP 17; TEMP 36.2; O2SAT 97
[2024-03-09] MEDS: Omeprazole 20 MG CAPSULE.DR PO ×2 (05:00→09:30)
[2024-03-09 05:14] VITALS: BP 121/71; PULSE 88; RESP 19; TEMP 36.6; O2SAT 99
[2024-03-09 07:15] LABS: Glucose, Whole Blood 83 mg/dL (60-115)
[2024-03-09] MEDS: SITagliptin Phosphate 100 MG TABLET PO (09:30)
[2024-03-09] MEDS: Atorvastatin Calcium 10 MG TABLET PO (09:30)
[2024-03-09] MEDS: Aspirin Enteric Coated 81 MG TABLET.DR PO (09:30)
[2024-03-09] MEDS: glipiZIDE 10 MG TABLET PO ×2 (09:30→20:23)
[2024-03-09] MEDS: Empagliflozin 10 MG TABLET PO (09:30)
[2024-03-09 11:17] LABS: Glucose, Whole Blood 78 mg/dL (60-115)
--- NOTE | 2024-03-09 13:36 | MHC.CM.ED ---
Patient remains in ER overflow. Still waiting to hear from [facility] appeals. Received telephone call from Sultana [facility] dependency case manager. T/W explained difficulty with getting patient to STR. Sultana will speak with her cottage supervisor. Continue to monitor for d/c needs.
[2024-03-09 14:00] VITALS: BP 117/65; PULSE 108; RESP 18; TEMP 36.8; O2SAT 96
[2024-03-09] MEDS: Acetaminophen 325 MG TABLET 975 MG PO (14:32)
[2024-03-09 16:46] LABS: Glucose, Whole Blood 260 mg/dL (60-115)
[2024-03-09] MEDS: Insulin Lispro 100 UNIT/ML 3 ML VIAL SUBCUT ×2 (17:10→20:23)
[2024-03-09 19:24] LABS: Glucose, Whole Blood 221 mg/dL (60-115)
[2024-03-09 19:57] VITALS: BP 117/56; PULSE 94; RESP 16; TEMP 37.1; O2SAT 97
[2024-03-09] MEDS: Amitriptyline HCl 25 MG TABLET PO (20:23)
[2024-03-10] MEDS: Acetaminophen 325 MG TABLET 975 MG PO ×2 (00:40→22:08)
[2024-03-10 05:51] VITALS: BP 105/54; PULSE 83; RESP 19; TEMP 36.4; O2SAT 97
[2024-03-10] MEDS: Omeprazole 20 MG CAPSULE.DR PO (06:08)
--- NOTE | 2024-03-10 06:51 | PC.NURSE ---
Attempted to end previous diaetary orders as they were incorrect. pt requires chopped d/t no teeth.
[2024-03-10 08:27] LABS: Glucose, Whole Blood 88 mg/dL (60-115)
[2024-03-10] MEDS: Aspirin Enteric Coated 81 MG TABLET.DR PO (09:15)
[2024-03-10] MEDS: glipiZIDE 10 MG TABLET PO ×2 (09:16→22:08)
[2024-03-10] MEDS: Empagliflozin 10 MG TABLET PO (09:16)
[2024-03-10] MEDS: SITagliptin Phosphate 100 MG TABLET PO (09:16)
[2024-03-10] MEDS: Atorvastatin Calcium 10 MG TABLET PO (09:16)
[2024-03-10 11:54] LABS: Glucose, Whole Blood 151 mg/dL (60-115)
[2024-03-10] MEDS: Insulin Lispro 100 UNIT/ML 3 ML VIAL SUBCUT ×2 (12:41→22:13)
[2024-03-10 13:49] VITALS: PULSE 93; RESP 16; TEMP 37; O2SAT 96
--- NOTE | 2024-03-10 16:32 | PC.NURSE ---
out of bed ambulating with wheeled walker and walking boot on left foot. Gait steady
[2024-03-10 17:04] LABS: Glucose, Whole Blood 131 mg/dL (60-115)
[2024-03-10 20:44] VITALS: BP 137/74; PULSE 100; RESP 16; TEMP 36.9; O2SAT 98
[2024-03-10] MEDS: Amitriptyline HCl 25 MG TABLET PO (22:08)
[2024-03-10 22:15] LABS: Glucose, Whole Blood 166 mg/dL (60-115)
--- NOTE | 2024-03-10 23:54 | PC.NURSE ---
Patient is alert and oriented x2, forgetful at times. Patient medicated with bedtime medications including PRN Tylenol for 7-8/10 left foot/ankle pain with relief in pain to 3/10. Patient used a bedside commode. She requested to sleep in a recliner chair. Patient assisted to a recliner chair, saran care provided, pure wick applied to promote comfort and preserve skin integrity. She offers no complaints at present. Call kilgore in patient's reach, plan of care ongoing.
[2024-03-11 06:02] VITALS: BP 103/63; PULSE 88; RESP 16; TEMP 36.9; O2SAT 97
[2024-03-11] MEDS: Omeprazole 20 MG CAPSULE.DR PO ×2 (06:06)
[2024-03-11 07:17] LABS: Glucose, Whole Blood 150 mg/dL (60-115)
[2024-03-11] MEDS: Atorvastatin Calcium 10 MG TABLET PO (08:19)
[2024-03-11] MEDS: Aspirin Enteric Coated 81 MG TABLET.DR PO (08:19)
[2024-03-11] MEDS: Empagliflozin 10 MG TABLET PO (08:19)
[2024-03-11] MEDS: glipiZIDE 10 MG TABLET PO (08:19)
[2024-03-11] MEDS: SITagliptin Phosphate 100 MG TABLET PO (08:19)
--- NOTE | 2024-03-11 08:22 | PC.NURSE ---
Assumed care of patient at 0700, patient currently sitting up in bed finishing breakfast, patient reports 05/12 headache, declining tylenol at this time, morning meds given per jan, no further needs at this time
--- NOTE | 2024-03-11 10:10 | MHC.EDTECH ---
this tech assisted the pt to the commode after breakfast. Pt did very well with self care. Pt is washed up and sitting in the recliner chair. emptied purewick at 700cc.
[2024-03-11 11:12] LABS: Glucose, Whole Blood 173 mg/dL (60-115)
--- NOTE | 2024-03-11 11:53 | PC.NURSE ---
PHYSICAL THERAPIST AT BEDSIDE, PT DID EXERCISES AND AMBULATED USING WALKER.
[2024-03-11] MEDS: Insulin Lispro 100 UNIT/ML 3 ML VIAL SUBCUT ×3 (11:54→21:28)
[2024-03-11 12:56] VITALS: BP 103/63; PULSE 88; O2SAT 97
--- NOTE | 2024-03-11 13:19 | MHC.CM.ED ---
Addendum entered by Nelly Valdes 03/11/24 15:28: [facility] and [facility] are not able to offer a bed. Clinical updates sent to [facility] to see if any of their facilities are able to offer a bed. Original Note: Patient remains in ER overflow. Received telephone call from Demetrice AMBROSIO from [facility] appeals. Updated PT and OT notes faxed. Continue to monitor for d/c needs.
[2024-03-11 14:00] VITALS: BP 104/63; PULSE 105; RESP 18; TEMP 37; O2SAT 97
[2024-03-11] MEDS: Acetaminophen 325 MG TABLET 975 MG PO (14:48)
[2024-03-11 16:57] LABS: Glucose, Whole Blood 198 mg/dL (60-115)
[2024-03-11 19:06] VITALS: BP 115/64; PULSE 95; RESP 19; TEMP 36.6; O2SAT 96
[2024-03-11] MEDS: Amitriptyline HCl 25 MG TABLET PO (21:28)
--- NOTE | 2024-03-11 23:55 | PC.NURSE ---
pt assessed denies any pain , refused glipizide, POC 204, medicated per jan, oob with 1 assist
[2024-03-12 03:35] VITALS: BP 131/71; PULSE 93; RESP 14; TEMP 36.5; O2SAT 99
[2024-03-12] MEDS: Omeprazole 20 MG CAPSULE.DR PO (05:59)
[2024-03-12 07:33] LABS: Glucose, Whole Blood 204 mg/dL (60-115)
--- NOTE | 2024-03-12 07:40 | MHC.EDTECH ---
pt was assisted to the commode and wash washed up with mouth care done and complete bed change and the assisted to the recliner.
[2024-03-12 07:41] LABS: Glucose, Whole Blood 155 mg/dL (60-115)
[2024-03-12] MEDS: Insulin Lispro 100 UNIT/ML 3 ML VIAL SUBCUT ×4 (09:02→21:16)
[2024-03-12] MEDS: Empagliflozin 10 MG TABLET PO (09:03)
[2024-03-12] MEDS: Atorvastatin Calcium 10 MG TABLET PO (09:03)
[2024-03-12] MEDS: SITagliptin Phosphate 100 MG TABLET PO (09:03)
[2024-03-12] MEDS: Aspirin Enteric Coated 81 MG TABLET.DR PO (09:03)
[2024-03-12] MEDS: glipiZIDE 10 MG TABLET PO ×2 (09:03→21:16)
[2024-03-12 09:10] VITALS: BP 113/55; PULSE 98; RESP 16; TEMP 36.7; O2SAT 96
--- NOTE | 2024-03-12 09:34 | MHC.EDTECH ---
pt ate 50% of her breakfast
--- NOTE | 2024-03-12 10:29 | MHC.CM.ED ---
Addendum entered by Nelly Valdes 03/12/24 12:44: [facility] and [facility] are able to offer beds. Patient accepts bed at [facility]. Douige LINO booked for 2pm. Patient, Momo AMBROSIO and Gisela DANIEL aware. Original Note: Patient remains in ER overflow. [facility] has overturned denial for STR. [facility], [facility], [facility] and [facility] are not able to offer a bed at this time. Referral resent to [facility], [place] and [facility] to see if they have any bed availability. Referral also broadcasted in [facility] for all facilities within 50 miles that are contracted with patient's insurance. Continue to monitor for d/c needs.
[2024-03-12 11:27] LABS: Glucose, Whole Blood 180 mg/dL (60-115)
--- NOTE | 2024-03-12 13:02 | MHC.CM.ED ---
Received notification from Hedy AMBROSIO that [facility] Met with patient. Patient states she can't go there or to [place] because [place] out [place]. Patient was not able to elaborate further on this. Patient also stated that she has two girls that help her. T/W reminded patient that she told T/W they were in cahoots against her on 02/27. Patient denies saying this. Patient has an open investigation with [facility] because she has been calling [place] [employer] nightly stating someone is breaking into her home. Per PD investigations, no one is breaking into her home. Patient's son, Harshad, is her HCP and has a substance abuse problem. T /W tried to encourage patient to go to short term rehab until she can ambulate better. Also questioned how patient would get to the bathroom at home if needed. Patient stated I'm an 86 year old woman and can manage just fine on my own. Patient is 88 years old. All of this information was relayed to Gisela DANIEL. Psych consult for capacity eval ordered at this time. Continue to monitor for d/c needs. Sultana patient's [facility] case management social worker made aware via telephone at [phone].
--- NOTE | 2024-03-12 13:16 | MHC.EDTECH ---
pt ate 100% of her lunch
[2024-03-12 14:00] VITALS: BP 118/81; PULSE 99; RESP 18; TEMP 36.3; O2SAT 96
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
--- NOTE | 2024-03-12 15:53 | MHC.EDTECH ---
THIS PCT ASSUMED CARE OF PATIENT ,PATIENT WAS ASSISTED UNTO BEDSIDE COMMODE ,VOID AND HAD A LARGE BOWEL MOVEMENT ,PATIENT WAS ASSISTED BACK TO CHAIR .
--- NOTE | 2024-03-12 16:24 | MHC.EDTECH ---
this pct was unable to get patient labs ,as patient a difficult stick ,rn aware ,other staff will tried .
[2024-03-12 17:14] LABS: Glucose, Whole Blood 222 mg/dL (60-115)
--- NOTE | 2024-03-12 17:36 | MHC.CM.ED ---
Psych evaluation completed By Mercedez Yee DEICER REPAIRER. Pt does not have capacity to make medical decisions. Attempted to call HCP/son at telephone number listed on HCP proxy ([phone]), but the mailbox was full and CM was unable to leave a message. Pt will need LTC. Kia Kirkpatrick aware.
--- NOTE | 2024-03-12 17:48 | PC.NURSE ---
PT WAS SEEN BY RENA MCNEIL. MEDS GIVEN DOCUMENTED. PT SITTING IN RECLINER WITH LEGS ELEVATED.
[2024-03-12 19:18] LABS: TSH reflex Free T4 < 0.01 uIU/mL (0.32-4.0)
[2024-03-12 19:21] LABS: Folate 11.1 ng/mL (> or = 4.0); Vitamin B12 352 pg/mL (200-900)
--- NOTE | 2024-03-12 19:40 | PC.NURSE ---
Pt making calls on her cell phone to family and friends saying that she needs assistance. Family called the unit to state she needs assistance gathering some of her things Pt sitting in bedside chair watching tv and talking on the phone, no signs of distress. Tech in with pt. Pt reminded of call [facility] if she requires assistance. Plan of care ongoing.
--- NOTE | 2024-03-12 20:16 | PC.NURSE ---
Pt attempting to take boot off of left foot. Pt educated on the importance of keeping boot on to avoid further injury to ankle. Pt states well I want to get back into bed Pt assisted into bed by tech and boot removed for comfort. Plan of care ongoing.
[2024-03-12 20:40] LABS: Glucose, Whole Blood 179 mg/dL (60-115)
--- NOTE | 2024-03-12 21:20 | PC.NURSE ---
Pt medicated per jan. Pt refused amitriptyline 25mg. Pt requested and lights dimmed. Pt watching tv in bed comfortably. Plan of care ongoing.
[2024-03-12 21:49] VITALS: BP 126/64; PULSE 90; RESP 12; TEMP 36.6; O2SAT 98
[2024-03-12 22:39] LABS: Appearance Urine Clear; Color Urine Yellow; Glucose Urine UA >=1000 mg/dL (Negative); Leukocyte Esterase Urine Negative (Negative); Nitrite Urine Negative (Negative); PH 5.5 (5.0-9.0); Specific Gravity - Urine >= 1.030 (1.005-1.025); UMIC TRIGGER UA YES; Urine Blood Negative (Negative); Urine Ketones Negative (Negative); Urine Protein Negative (Neg-Trace)
[2024-03-12 22:50] LABS: Bacteria Urine None Seen (None Seen); Hyaline Casts Urine 0-2 /LPF (0-2); RBC Urine 0-2 /HPF (0-2); Squamous Epithelial Cell Urine 0-2 /HPF (0-2); WBC Urine 0-5 /HPF (0-5)
[2024-03-13 05:20] VITALS: BP 122/68; PULSE 74; RESP 16; TEMP 36.7; O2SAT 96
[2024-03-13] MEDS: Omeprazole 20 MG CAPSULE.DR PO (06:07)
[2024-03-13] MEDS: Acetaminophen 325 MG TABLET 975 MG PO (06:07)
--- NOTE | 2024-03-13 06:08 | PC.NURSE ---
pt reporting 8/10 left foot pain, pt requested tylenol only at this time. pt medicated per jan, tolerated well with water. call [facility] within reach.
[2024-03-13 07:18] LABS: Glucose, Whole Blood 86 mg/dL (60-115)
--- NOTE | 2024-03-13 09:42 | PC.NURSE ---
called pharmacy for meds not available in pyxis
[2024-03-13] MEDS: Aspirin Enteric Coated 81 MG TABLET.DR PO (10:03)
[2024-03-13] MEDS: SITagliptin Phosphate 100 MG TABLET PO (10:03)
[2024-03-13] MEDS: Atorvastatin Calcium 10 MG TABLET PO (10:03)
[2024-03-13] MEDS: Empagliflozin 10 MG TABLET PO (10:04)
[2024-03-13] MEDS: glipiZIDE 10 MG TABLET PO ×2 (10:04→21:29)
[2024-03-13 13:06] LABS: Glucose, Whole Blood 175 mg/dL (60-115)
[2024-03-13] MEDS: Insulin Lispro 100 UNIT/ML 3 ML VIAL SUBCUT ×2 (13:12→21:29)
[2024-03-13 14:00] VITALS: BP 109/55; PULSE 94; TEMP 36.4; O2SAT 96
--- NOTE | 2024-03-13 15:47 | MHC.CM.PN ---
Pt continues to hold in ED pending placement: pt seen by psych and does not have capacity to make decisions. She will need LTC placement. Message was able to be left w/HCP, pts son using the [phone] number. Will await a call back. CM Director aware of pt's barriers to d/c
[2024-03-13 15:57] VITALS: BP 115/62; PULSE 96; RESP 14; TEMP 36.4; O2SAT 96
[2024-03-13 18:23] LABS: Glucose, Whole Blood 158 mg/dL (60-115)
[2024-03-13 19:13] VITALS: BP 127/68; PULSE 98; RESP 17; TEMP 37.2; O2SAT 96
--- NOTE | 2024-03-13 19:14 | MHC.EDTECH ---
This tech assumed care for this patient at 19:00. Introduced myself to the patient, Dinner tray removed as patient is finished, Vitals obtained. Patient is resting comfortably.
--- NOTE | 2024-03-13 19:34 | PC.NURSE ---
this rn assumed care of pt, pt resting in hospital bed, no acute distress noted. vss. call [facility] within reach.
--- NOTE | 2024-03-13 20:28 | PC.NURSE ---
Katerina from [facility] for update on pt, update provided at this time.
[2024-03-13 20:41] LABS: Glucose, Whole Blood 207 mg/dL (60-115)
[2024-03-14 05:49] VITALS: BP 125/66; PULSE 82; RESP 16; TEMP 36.5; O2SAT 98
[2024-03-14] MEDS: Omeprazole 20 MG CAPSULE.DR PO (06:15)
--- NOTE | 2024-03-14 06:16 | PC.NURSE ---
pt medicated per mar, tolerated well with water.
[2024-03-14 07:24] LABS: Glucose, Whole Blood 126 mg/dL (60-115)
[2024-03-14 10:09] VITALS: BP 123/65; PULSE 100; RESP 18; TEMP 36.2; O2SAT 96
[2024-03-14] MEDS: SITagliptin Phosphate 100 MG TABLET PO (10:11)
[2024-03-14] MEDS: Atorvastatin Calcium 10 MG TABLET PO (10:11)
[2024-03-14] MEDS: glipiZIDE 10 MG TABLET PO (10:11)
[2024-03-14] MEDS: Aspirin Enteric Coated 81 MG TABLET.DR PO (10:11)
[2024-03-14] MEDS: Empagliflozin 10 MG TABLET PO (10:12)
--- NOTE | 2024-03-14 10:15 | PC.NURSE ---
patient resting quiet;y on bed, refrigeration tech got patient washed up this morning and changed linens. patient is sitting up in bed, talking on the phone, patient alert and oriented. patient medicated per MAR, takes medications with water. VSS, skin dry and intact, patient respirations equal and unlabored.
[2024-03-14 12:10] LABS: Glucose, Whole Blood 177 mg/dL (60-115)
[2024-03-14 13:10] VITALS: BP 135/74; PULSE 95; RESP 18; TEMP 36.2; O2SAT 98
[2024-03-14] MEDS: Insulin Lispro 100 UNIT/ML 3 ML VIAL SUBCUT ×3 (13:39→21:01)
[2024-03-14 18:25] VITALS: BP 134/75; PULSE 75; RESP 20; TEMP 36.6; O2SAT 95
[2024-03-14 18:30] LABS: Glucose, Whole Blood 197 mg/dL (60-115)
--- NOTE | 2024-03-14 18:59 | PC.NURSE ---
assumed care of pt
[2024-03-14 20:50] VITALS: BP 118/61; PULSE 94; RESP 18
[2024-03-14 20:56] LABS: Glucose, Whole Blood 162 mg/dL (60-115)
[2024-03-14] MEDS: Amitriptyline HCl 25 MG TABLET PO (21:01)
[2024-03-15 06:20] VITALS: BP 124/63; PULSE 89; RESP 16; TEMP 36.5; O2SAT 97
[2024-03-15 07:29] VITALS: BP 137/70; PULSE 89; RESP 14; TEMP 36.6; O2SAT 97
[2024-03-15 07:30] LABS: Glucose, Whole Blood 135 mg/dL (60-115)
--- NOTE | 2024-03-15 09:27 | MHC.CM.ED ---
Addendum entered by Nelly Valdes 03/15/24 09:33: Kia will reach out to Rito and Danial to start guardianship and conservator process. Original Note: Patient remains in ER. Per Mercedez, law enforcement director, patient does not have capacity to make her own decisions. Attempted to speak to Harshad via telephone at [phone]. A female picked up and stated wrong number . No other telephone numbers available for Harshad. Kia Kirkpatrick CM director aware. Continue to monitor for d/c needs.
[2024-03-15 10:02] VITALS: BP 110/69; PULSE 93; RESP 14; TEMP 36.6; O2SAT 97
[2024-03-15] MEDS: Aspirin Enteric Coated 81 MG TABLET.DR PO (10:49)
[2024-03-15] MEDS: glipiZIDE 10 MG TABLET PO ×2 (10:49→21:49)
[2024-03-15] MEDS: Empagliflozin 10 MG TABLET PO (10:49)
[2024-03-15] MEDS: SITagliptin Phosphate 100 MG TABLET PO (10:49)
[2024-03-15] MEDS: Atorvastatin Calcium 10 MG TABLET PO (10:49)
[2024-03-15 13:50] LABS: Glucose, Whole Blood 125 mg/dL (60-115)
--- NOTE | 2024-03-15 13:57 | MHC.EDTECH ---
pt was complaining to this tech about lunch tray. this tech called the kitchen requesting for pt to be able to order a specific meal, kitchen agreed. pt waiting for kitchen to arrive to place food order, rn aware.
[2024-03-15 17:21] VITALS: BP 112/66; PULSE 94; RESP 17; TEMP 37.1; O2SAT 96
[2024-03-15 17:25] LABS: Glucose, Whole Blood 163 mg/dL (60-115)
[2024-03-15] MEDS: Insulin Lispro 100 UNIT/ML 3 ML VIAL SUBCUT ×2 (18:15→21:49)
--- NOTE | 2024-03-15 20:17 | MHC.EDTECH ---
This tech took over care of patient at 1900,patient ate 100% of dinner,patient has a pure-wick in done by previous shift,draining good,patient was repositioned to comfort,and is clean and dry,call [facility] in reach and bed alarm on for safety
[2024-03-15 20:20] VITALS: BP 114/60; PULSE 90; RESP 16; TEMP 36.9; O2SAT 96
--- NOTE | 2024-03-15 20:33 | MHC.EDTECH ---
This tech placed a new pure-wick,due to being out of place,patient needed a complete bed change,saran-care given
--- NOTE | 2024-03-15 21:07 | MHC.EDTECH ---
POC taken and is 252 RN Fabienne made aware
[2024-03-15 21:09] LABS: Glucose, Whole Blood 252 mg/dL (60-115)
[2024-03-15] MEDS: Amitriptyline HCl 25 MG TABLET PO (21:49)
--- NOTE | 2024-03-16 00:02 | MHC.EDTECH ---
Hourly rounds completed,patient repositioned to comfort,pure-wick in place,patient is clean and dry.
[2024-03-16 04:35] VITALS: BP 138/76; PULSE 76; RESP 18; TEMP 36.8; O2SAT 96
--- NOTE | 2024-03-16 04:49 | MHC.EDTECH ---
Upon entry to room patient was sitting on the side of bed,pure-wick was out and patient was incont. of urine,patient was cleaned and saran-care given,a new pure wick placed and vitals taken,call [facility] in reach and bed alarm on for safety
--- NOTE | 2024-03-16 06:22 | MHC.EDTECH ---
Hourly rounds completed,emptied 700MLS of yellow urine from suction canister.
[2024-03-16 07:29] LABS: Glucose, Whole Blood 105 mg/dL (60-115)
[2024-03-16] MEDS: Atorvastatin Calcium 10 MG TABLET PO (10:08)
[2024-03-16] MEDS: SITagliptin Phosphate 100 MG TABLET PO (10:08)
[2024-03-16] MEDS: glipiZIDE 10 MG TABLET PO ×2 (10:08→21:01)
[2024-03-16] MEDS: Empagliflozin 10 MG TABLET PO (10:09)
[2024-03-16] MEDS: Aspirin Enteric Coated 81 MG TABLET.DR PO (10:09)
--- NOTE | 2024-03-16 11:53 | PC.NURSE ---
meds given as documented. pt reports chronic generalized body ache I have arthritis . pt in bed reading her bible. no complaints at this time. vss.
[2024-03-16 13:01] LABS: Glucose, Whole Blood 168 mg/dL (60-115)
[2024-03-16] MEDS: Insulin Lispro 100 UNIT/ML 3 ML VIAL SUBCUT ×3 (13:28→21:00)
[2024-03-16 15:30] VITALS: BP 126/76; PULSE 72; RESP 16; TEMP 36.2; O2SAT 97
--- NOTE | 2024-03-16 15:31 | MHC.EDTECH ---
this pct assumed care of patient at 1500 ,vitals taken ,pt was assisted unto bedside commode ,Patient have multiple episode of loose bowel movement .
[2024-03-16 17:14] LABS: Glucose, Whole Blood 166 mg/dL (60-115)
[2024-03-16 18:26] LABS: Glucose, Whole Blood 171 mg/dL (60-115)
--- NOTE | 2024-03-16 20:00 | MHC.EDTECH ---
PATIENT WAS SET UP WITH DINNER ,PATIENT ATE 100 % OF MEAL ,DRANK 360 ML FLUIDS ,PATIENT WAS GIVEN BED BATH ,CLEAN PURE WICK IN PLACE ,FRESH PITCHER GIVEN ,CALL LAW WITHIN PATIENT REACH AND BED ALARM ON .
[2024-03-16 20:39] LABS: Glucose, Whole Blood 252 mg/dL (60-115)
[2024-03-16 20:42] VITALS: BP 110/60; PULSE 100; RESP 16; TEMP 36.8; O2SAT 97
--- NOTE | 2024-03-16 20:42 | MHC.EDTECH ---
PATIENT VITALS TAKEN AND BLOOD SUGAR CHECK .
--- NOTE | 2024-03-16 23:01 | MHC.EDTECH ---
THIS PCT WAS UNABLE TO COLLECT STOOL SAMPLE ,BECAUSE PATIENT DID NOT HAD ANY MORE BOWEL MOVEMENT .
[2024-03-17 06:21] VITALS: BP 117/64; PULSE 70; RESP 16; TEMP 36.2; O2SAT 96
[2024-03-17 07:12] LABS: Glucose, Whole Blood 169 mg/dL (60-115)
[2024-03-17] MEDS: Omeprazole 20 MG CAPSULE.DR PO (07:15)
[2024-03-17] MEDS: Insulin Lispro 100 UNIT/ML 3 ML VIAL SUBCUT ×3 (07:15→22:19)
--- NOTE | 2024-03-17 08:00 | PC.NURSE ---
pt is alert and oriented, skin appropriate for ethnicity, respirations even and unlabored, pt denies pain , pt reports that she really dislikes the scrambled eggs, is requesting hard boiled eggs- this rn got the pt two hard boiled eggs from the cafeteria, pt awaiting sniff placement , perwick in place and working well
[2024-03-17] MEDS: glipiZIDE 10 MG TABLET PO ×2 (08:38→22:21)
[2024-03-17] MEDS: Aspirin Enteric Coated 81 MG TABLET.DR PO (08:38)
[2024-03-17 08:39] VITALS: BP 121/70; PULSE 94; RESP 18; O2SAT 99
[2024-03-17] MEDS: SITagliptin Phosphate 100 MG TABLET PO (08:39)
[2024-03-17] MEDS: Empagliflozin 10 MG TABLET PO (08:39)
[2024-03-17] MEDS: Atorvastatin Calcium 10 MG TABLET PO (08:39)
[2024-03-17 12:11] VITALS: BP 137/71; PULSE 97; RESP 16; TEMP 36.6; O2SAT 100
[2024-03-17 12:19] LABS: Glucose, Whole Blood 120 mg/dL (60-115)
--- NOTE | 2024-03-17 12:20 | PC.NURSE ---
Assumed care of this patient at 1100, patient upset that she's been in bed for so long, patient states she does not have a broken foot and can walk fine, reassured patient that we will attempt to get her OOB today.
--- NOTE | 2024-03-17 13:56 | PC.NURSE ---
Patient continues to be upset, saying she is going to call the police and walk out of here. district operations manager made aware, sitter now at bedside talking with patient. Patient is redirectable.
--- NOTE | 2024-03-17 14:59 | MHC.EDTECH ---
Pt refused lunch, pt given applesauce, cheese stick, and juice
[2024-03-17 17:40] LABS: Glucose, Whole Blood 222 mg/dL (60-115)
--- NOTE | 2024-03-17 18:42 | PC.NURSE ---
Patient resting quietly on stretcher eating dinner, sitter at bedside.
[2024-03-17 19:49] VITALS: BP 114/52; PULSE 95; RESP 16; TEMP 36.9; O2SAT 97
--- NOTE | 2024-03-17 20:17 | MHC.EDTECH ---
PT REPOSITIONED IN BED. PUREWICK CANISTER EMPTIED OF 1300cc URINE. VITALS UPDATED. SITTER AT BEDSIDE AND RN AWARE.
--- NOTE | 2024-03-17 21:42 | MHC.CM.ED ---
CM met with patient in the overflow. Pt is very confused. Unable to have a meaningful conversation with patient about plan of care. Pt believes that staff are lying to her. Patient does not understand it is not safe for her to live alone. Pt spends most of her time, over 30 minutes, speaking about God, her being a prophet and talking about past times in her religious. Also speaks to when she found God as a child. She believes everyone is hiding things from her, and she can see this because she has the sight . CM will attempt to meet with patient again tomorrow. Pt is pending guardianship, MH application and LTC.
[2024-03-17 22:13] LABS: Glucose, Whole Blood 278 mg/dL (60-115)
[2024-03-17] MEDS: Amitriptyline HCl 25 MG TABLET PO (22:21)
--- NOTE | 2024-03-17 23:30 | PC.NURSE ---
This functional tester typewriters assumed care of this Pt at 2100. Pt calm and cooperative, taking marine engine machinist at bedside. Pt medicated per MAR, requesting not to be given green pill, and requesting boiled eggs in the morning. Sitter at bedside for safety.
[2024-03-18 00:04] VITALS: BP 95/54; PULSE 99; RESP 14; TEMP 36.7; O2SAT 97
[2024-03-18] MEDS: Omeprazole 20 MG CAPSULE.DR PO (05:59)
--- NOTE | 2024-03-18 06:17 | PC.NURSE ---
Pt incontinent of urine, incontinent care provided.
[2024-03-18 07:34] LABS: Glucose, Whole Blood 82 mg/dL (60-115)
[2024-03-18 09:02] VITALS: BP 133/69; PULSE 96; RESP 18; TEMP 36.4; O2SAT 98
[2024-03-18] MEDS: Aspirin Enteric Coated 81 MG TABLET.DR PO (10:47)
[2024-03-18] MEDS: Atorvastatin Calcium 10 MG TABLET PO (10:47)
[2024-03-18] MEDS: glipiZIDE 10 MG TABLET PO ×2 (10:47→21:29)
[2024-03-18 11:29] LABS: Glucose, Whole Blood 143 mg/dL (60-115)
--- NOTE | 2024-03-18 12:05 | PC.NURSE ---
Assumed care of this pt at 0800, she is alert but confused, and cooperative. Awaiting [facility] placement. Some medications not available in the [facility], pharmacy notified awaiting medication delivery. Lungs clear, ABD soft with +BS. Skin warm and dry.
[2024-03-18] MEDS: Empagliflozin 10 MG TABLET PO (13:02)
[2024-03-18 17:44] LABS: Glucose, Whole Blood 206 mg/dL (60-115)
[2024-03-18] MEDS: Insulin Lispro 100 UNIT/ML 3 ML VIAL SUBCUT ×2 (18:58→21:29)
[2024-03-18 21:22] LABS: Glucose, Whole Blood 257 mg/dL (60-115)
[2024-03-18 22:00] VITALS: BP 102/48; PULSE 93; RESP 16; TEMP 36.2; O2SAT 96
[2024-03-18 22:58] LABS: Glucose, Whole Blood 187 mg/dL (60-115)
--- NOTE | 2024-03-19 00:18 | PC.NURSE ---
Assumed care of pt at 2310. Pt a/o xx4, denies pain at this time. Respirations even and unlabored. Purewick in place- output yellow urine. Call [facility] within reach. plan of care ongoing
[2024-03-19] MEDS: Acetaminophen 325 MG TABLET 975 MG PO ×3 (01:03→22:05)
--- NOTE | 2024-03-19 01:40 | MHC.EDTECH ---
Changed pts brief, applied cloroplast to R sacrum, replaced ric
--- NOTE | 2024-03-19 04:25 | PC.NURSE ---
pt arrived via Main ED to the overflow unit
[2024-03-19 05:38] VITALS: BP 131/64; PULSE 89; RESP 16; TEMP 37.1; O2SAT 98
--- NOTE | 2024-03-19 06:25 | PC.NURSE ---
pt reported she is very tired and can she take 0630 med with the rest of her medications
[2024-03-19 07:16] LABS: Glucose, Whole Blood 111 mg/dL (60-115)
[2024-03-19] MEDS: Aspirin Enteric Coated 81 MG TABLET.DR PO (09:31)
[2024-03-19] MEDS: Atorvastatin Calcium 10 MG TABLET PO (09:31)
[2024-03-19] MEDS: SITagliptin Phosphate 100 MG TABLET PO (09:31)
[2024-03-19] MEDS: glipiZIDE 10 MG TABLET PO ×2 (09:31→21:05)
[2024-03-19 09:34] VITALS: BP 120/61; PULSE 94; RESP 18; TEMP 36.2; O2SAT 98
[2024-03-19] MEDS: Empagliflozin 10 MG TABLET PO (11:17)
[2024-03-19 11:59] LABS: Glucose, Whole Blood 140 mg/dL (60-115)
--- NOTE | 2024-03-19 13:00 | MHC.CM.ED ---
Addendum entered by Nelly Valdes 03/19/24 13:16: Court date scheduled for 03/30 at 9am in person for guardianship. Original Note: Patient remains in ER overflow. Still waiting for court date for guardianship. Patient will need LTC. Continue to monitor for d/c needs.
[2024-03-19 14:51] VITALS: BP 104/67; PULSE 93; RESP 12; TEMP 36.4; O2SAT 97
[2024-03-19 16:47] LABS: Glucose, Whole Blood 162 mg/dL (60-115)
[2024-03-19] MEDS: Insulin Lispro 100 UNIT/ML 3 ML VIAL SUBCUT ×2 (16:59→21:05)
[2024-03-19 20:46] LABS: Glucose, Whole Blood 199 mg/dL (60-115)
[2024-03-19 20:47] VITALS: BP 115/59; PULSE 93; RESP 18; TEMP 36.8; O2SAT 95
[2024-03-19] MEDS: Amitriptyline HCl 25 MG TABLET PO (21:05)
--- NOTE | 2024-03-19 22:06 | PC.NURSE ---
Pt c/o headache 04/12. PRN Tylenol requested and administered.
[2024-03-20] MEDS: Omeprazole 20 MG CAPSULE.DR PO (05:44)
[2024-03-20 06:16] VITALS: BP 139/70; PULSE 86; RESP 16; O2SAT 93
[2024-03-20 07:58] LABS: Glucose, Whole Blood 95 mg/dL (60-115)
[2024-03-20] MEDS: Empagliflozin 10 MG TABLET PO (10:54)
[2024-03-20] MEDS: Aspirin Enteric Coated 81 MG TABLET.DR PO (10:54)
[2024-03-20] MEDS: Atorvastatin Calcium 10 MG TABLET PO (10:54)
[2024-03-20] MEDS: glipiZIDE 10 MG TABLET PO ×2 (10:55→21:01)
[2024-03-20] MEDS: SITagliptin Phosphate 100 MG TABLET PO (10:55)
[2024-03-20 11:53] LABS: Glucose, Whole Blood 252 mg/dL (60-115)
[2024-03-20] MEDS: Insulin Lispro 100 UNIT/ML 3 ML VIAL SUBCUT ×3 (11:56→21:03)
[2024-03-20 14:30] LABS: Glucose, Whole Blood 68 mg/dL (60-115)
[2024-03-20 14:40] VITALS: BP 115/70; PULSE 91; RESP 16; TEMP 36.6; O2SAT 98
[2024-03-20 16:59] LABS: Glucose, Whole Blood 169 mg/dL (60-115)
[2024-03-20 18:39] VITALS: BP 107/63; PULSE 98; RESP 14; TEMP 36.6; O2SAT 99
[2024-03-20 20:04] LABS: Glucose, Whole Blood 241 mg/dL (60-115)
[2024-03-20] MEDS: Amitriptyline HCl 25 MG TABLET PO (21:01)
--- NOTE | 2024-03-20 22:18 | PC.NURSE ---
Patient resting quietly on hospital bed, no issues at this time.
[2024-03-20 23:38] VITALS: BP 131/68; PULSE 97; RESP 16; TEMP 36.9; O2SAT 98
--- NOTE | 2024-03-20 23:42 | MHC.EDTECH ---
This tech took over care of patient at 2300,hourly rounds and vitals completed. Patient was repositioned to comfort,Call [facility] in reach
--- NOTE | 2024-03-21 03:15 | PC.NURSE ---
Assumed care of pt.
--- NOTE | 2024-03-21 03:21 | PC.NURSE ---
Pt lying on stretcher, respirations even and unlabored. No acute distress at this time.
[2024-03-21 07:56] LABS: Glucose, Whole Blood 70 mg/dL (60-115)
[2024-03-21] MEDS: Omeprazole 20 MG CAPSULE.DR PO (08:15)
[2024-03-21] MEDS: glipiZIDE 10 MG TABLET PO ×2 (09:07→20:54)
[2024-03-21] MEDS: SITagliptin Phosphate 100 MG TABLET PO (09:07)
[2024-03-21] MEDS: Aspirin Enteric Coated 81 MG TABLET.DR PO (09:07)
[2024-03-21] MEDS: Atorvastatin Calcium 10 MG TABLET PO (09:07)
[2024-03-21] MEDS: Empagliflozin 10 MG TABLET PO (09:07)
[2024-03-21 09:11] VITALS: BP 135/72; PULSE 91; RESP 16; TEMP 36.8; O2SAT 94
--- NOTE | 2024-03-21 09:12 | PC.NURSE ---
patient a&ox3, vss, pt sitting at bedside eating breakfast, meds whole with water, pt denying pain/discomfort, lungs clear, rr even/non labored, call [facility] within reach, will continue to monitor
[2024-03-21 11:57] LABS: Glucose, Whole Blood 179 mg/dL (60-115)
--- NOTE | 2024-03-21 13:44 | PC.NURSE ---
this nurse has checked for the patients lunch around 1230 which had not shown up yet. approx 130, this nurse noticed lunches brought over for other patients and called the kitchen as this patients lunch had not been delivered. kitchen stated they would bring over pts lunch.
[2024-03-21] MEDS: Insulin Lispro 100 UNIT/ML 3 ML VIAL SUBCUT ×3 (14:04→20:54)
--- NOTE | 2024-03-21 14:04 | PC.NURSE ---
pt remains a&ox3, sitting at bedside eating lunch, medicated with insulin per order, pt was oob with assist to commode prior to lunch, call [facility] within reach, will continue to monitor
[2024-03-21] MEDS: Ibuprofen 600 MG TABLET PO (17:43)
[2024-03-21 18:14] LABS: Glucose, Whole Blood 311 mg/dL (60-115)
[2024-03-21 18:23] VITALS: BP 132/75; PULSE 100; O2SAT 99
[2024-03-21 20:49] LABS: Glucose, Whole Blood 237 mg/dL (60-115)
--- NOTE | 2024-03-21 20:57 | PC.NURSE ---
called pharmacy for missing medication
--- NOTE | 2024-03-21 21:05 | PC.NURSE ---
pharmacy brought up medication, pt refused the med
--- NOTE | 2024-03-21 21:23 | PC.NURSE ---
patient was a&ox3 all day, around 7pm this evening, this nurse notice the patient had a cell phone in her hand and was talking on the phone without anybody on the other end. Pt was having full conversations, pt was then only noted to be alert to person and seems to be . Patient ate well for dinner, vitals have remained stable, ambulates with assist to bathroom.
--- NOTE | 2024-03-21 23:33 | PC.NURSE ---
assumed care at 2200, bedside report received. pt alert x2. calm cooperative, bed alarmed for safety, transferred to room 4
[2024-03-22 00:39] VITALS: BP 117/53; PULSE 96; RESP 16; TEMP 36.6; O2SAT 98
--- NOTE | 2024-03-22 05:50 | PC.NURSE ---
pt assessed, pt awake at different times during the night, disoriented at times, reoriented place and time. bed alarmed for safety
[2024-03-22 07:31] VITALS: BP 117/66; PULSE 104; RESP 18; TEMP 36.8; O2SAT 99
[2024-03-22 07:33] LABS: Glucose, Whole Blood 147 mg/dL (60-115)
[2024-03-22] MEDS: Omeprazole 20 MG CAPSULE.DR PO (07:35)
[2024-03-22] MEDS: glipiZIDE 10 MG TABLET PO ×2 (08:23→22:03)
[2024-03-22] MEDS: Empagliflozin 10 MG TABLET PO (08:23)
[2024-03-22] MEDS: Aspirin Enteric Coated 81 MG TABLET.DR PO (08:23)
[2024-03-22] MEDS: SITagliptin Phosphate 100 MG TABLET PO (08:23)
[2024-03-22] MEDS: Atorvastatin Calcium 10 MG TABLET PO (08:23)
[2024-03-22 08:27] LABS: MANUAL DIFF FLAG NO
[2024-03-22 08:28] LABS: Basophils Percent Auto 0.3 % (0-2); Eosinophils Absolute Auto 0.2 X10*3/uL (0.0-0.4); Eosinophils Percent Auto 2.1 % (0-4); Hematocrit 36.7 % (37.0-47.0); Hemoglobin 12.1 g/dl (12.0-16.0); Imm Gran Abs Auto 0.03 X10*3/uL (0.00-0.03); Imm Gran Pct Auto 0.4 % (0.0-0.4); Lymphocytes Percent Auto 28.8 % (20-40); Mean Corpuscular Hemoglobin 30.5 pg (27.0-33.0); Mean Corpuscular Volume 92.4 fL (80.0-98.0); Mean Platelet Volume 10.2 fL (9.4-12.3); Monocytes Absolute Auto 0.7 X10*3/uL (0.1-1.2); Monocytes Percent Auto 10.1 % (2-11); Neutrophils Absolute Auto 4.1 x10*3/uL (2.0-8.3); Neutrophils Percent Auto 58.3 % (45-73); Platelet Count 339 X10*3/uL (160-400); Red Blood Count 3.97 X10*6/uL (4.20-5.50); Red Cell Distribution Width 13.5 % (11.0-16.0); White Blood Count 7.1 X10*3/uL (4.8-10.8)
[2024-03-22 08:49] LABS: Alanine Aminotransferase 15 U/L (0-31); Albumin Level 3.4 g/dL (3.5-5.0); Alkaline Phosphatase 135 U/L (39-117); Anion Gap 14 (12-20); Aspartate Amino Transferase 13 U/L (5-31); Bilirubin Direct < 0.2 mg/dL (0.0-0.5); Bilirubin Total 0.2 mg/dL (0.0-1.0); Blood Urea Nitrogen 13 mg/dL (9-16); Calcium 9.1 mg/dL (8.4-10.2); Carbon Dioxide 24 mmol/L (22-29); Chloride 106 mmol/L (96-108); Creatinine Clr Calc Pharmacy 61.3; Estimated Glomerular Filt Rate > 60; Glucose Random 181 mg/dL (60-115); Magnesium 2.1 mg/dL (1.6-2.6); Potassium 4.3 mmol/L (3.3-5.1); Sodium 140 mmol/L (135-145); Total Protein 5.9 g/dL (6.5-8.0)
--- NOTE | 2024-03-22 09:05 | PC.NURSE ---
1:1 assists to the commode. UA obtained/sent to lab. pt repositioned back into bed to comfort. no sob/wob noted. respirations even and unlabored. plan of care ongoing. call [facility] placed within reach.
[2024-03-22 09:16] LABS: Appearance Urine Clear; Color Urine Yellow; Glucose Urine UA >=1000 mg/dL (Negative); Leukocyte Esterase Urine Negative (Negative); Nitrite Urine Negative (Negative); PH 6.5 (5.0-9.0); Specific Gravity - Urine >= 1.030 (1.005-1.025); UMIC TRIGGER UACC YES; Urine Blood Negative (Negative); Urine Ketones Negative (Negative); Urine Protein Negative (Neg-Trace)
[2024-03-22 09:39] LABS: Bacteria Urine None Seen (None Seen); Hyaline Casts Urine 0-2 /LPF (0-2); RBC Urine 0-2 /HPF (0-2); Squamous Epithelial Cell Urine 0-2 /HPF (0-2); WBC Urine 0-5 /HPF (0-5)
--- NOTE | 2024-03-22 12:26 | PC.NURSE ---
pt up to bedside recliner. call kilgore in place
[2024-03-22 12:48] LABS: Glucose, Whole Blood 115 mg/dL (60-115)
[2024-03-22 15:33] VITALS: BP 131/67; PULSE 90; RESP 16; TEMP 36.3; O2SAT 97
--- NOTE | 2024-03-22 15:47 | MHC.EDTECH ---
Walked patient to bathroom
[2024-03-22 16:46] LABS: Glucose, Whole Blood 159 mg/dL (60-115)
[2024-03-22] MEDS: Insulin Lispro 100 UNIT/ML 3 ML VIAL SUBCUT ×2 (18:52→22:03)
[2024-03-22 19:05] VITALS: BP 129/68; PULSE 104; RESP 16; O2SAT 95
[2024-03-22 21:45] LABS: Glucose, Whole Blood 192 mg/dL (60-115)
--- NOTE | 2024-03-22 22:05 | PC.NURSE ---
med delay, waiting for med to be brought to unit
[2024-03-22] MEDS: Acetaminophen 325 MG TABLET 975 MG PO (22:09)
--- NOTE | 2024-03-22 22:10 | PC.NURSE ---
pt requesting medication for L foot pain, pt medicated per MAR
[2024-03-23 00:36] VITALS: BP 138/65; PULSE 91; RESP 15; O2SAT 95
--- NOTE | 2024-03-23 03:08 | PC.NURSE ---
pt selpt a few hours, up and down from the bed, sitting on the edge, walked to commode. back to edge of bed. pt states she is okay, she is praying
[2024-03-23 06:00] VITALS: BP 150/72; PULSE 92; TEMP 36.6; O2SAT 99
--- NOTE | 2024-03-23 08:17 | MHC.CM.ED ---
Addendum entered by Nelly Valdes 03/23/24 15:52: Notice of petition for guardianship provided to patient. Addendum entered by Nelly Valdes 03/23/24 14:51: Received telephone call from patient's sister , Gilda. Gilda made aware that hospital is in the process of obtaining guardianship for custodial care. Original Note: Patient remains in ER. Court for guardianship is scheduled for 03/30. Will need LTC after that. Continue to monitor for d/c needs.
[2024-03-23 08:45] LABS: Glucose, Whole Blood 111 mg/dL (60-115)
[2024-03-23] MEDS: Atorvastatin Calcium 10 MG TABLET PO (09:33)
[2024-03-23] MEDS: Omeprazole 20 MG CAPSULE.DR PO (09:33)
[2024-03-23] MEDS: SITagliptin Phosphate 100 MG TABLET PO (09:33)
[2024-03-23] MEDS: Empagliflozin 10 MG TABLET PO (09:33)
[2024-03-23] MEDS: glipiZIDE 10 MG TABLET PO ×2 (09:33→21:28)
[2024-03-23] MEDS: Aspirin Enteric Coated 81 MG TABLET.DR PO (09:33)
[2024-03-23 12:01] LABS: Glucose, Whole Blood 167 mg/dL (60-115)
[2024-03-23] MEDS: Insulin Lispro 100 UNIT/ML 3 ML VIAL SUBCUT ×3 (13:08→21:28)
[2024-03-23 14:00] VITALS: BP 115/66; PULSE 96; O2SAT 98
[2024-03-23 17:11] LABS: Glucose, Whole Blood 191 mg/dL (60-115)
--- NOTE | 2024-03-23 19:08 | PC.NURSE ---
Complex skin assessment done by this RN, pt noted to have scar of healed ? open area, no open areas noted at this time, no rashes/raised areas/open areas noted. Pt has sensation everywhere, offers no complaints of pain at time of exam. barrier cream offered to patient but declined at this time.
--- NOTE | 2024-03-23 20:14 | PC.NURSE ---
this rn assumed care of pt, pt sitting in chair, requested assistance to bedside commode and to bed. pt ambulated well at this time. no acute distress noted.
[2024-03-23 21:19] LABS: Glucose, Whole Blood 166 mg/dL (60-115)
[2024-03-23 21:26] VITALS: BP 160/78; PULSE 94; RESP 17; TEMP 36.6; O2SAT 98
[2024-03-23 22:00] VITALS: BP 132/72; PULSE 93; RESP 18; TEMP 36.7; O2SAT 93
--- NOTE | 2024-03-24 05:31 | MHC.EDTECH ---
Patient went to the bathroom 1 assist no devices at 5 am. brief dry.
--- NOTE | 2024-03-24 06:21 | PC.NURSE ---
pt has a headache and request tylenol for 10/10 pain controll. will reassess and treat further if needed. provider made aware.
[2024-03-24] MEDS: Acetaminophen 325 MG TABLET 975 MG PO (06:23)
[2024-03-24] MEDS: Omeprazole 20 MG CAPSULE.DR PO (06:24)
[2024-03-24] MEDS: Aspirin Enteric Coated 81 MG TABLET.DR PO (07:13)
[2024-03-24] MEDS: Empagliflozin 10 MG TABLET PO (07:13)
[2024-03-24] MEDS: glipiZIDE 10 MG TABLET PO (07:14)
[2024-03-24] MEDS: SITagliptin Phosphate 100 MG TABLET PO (07:14)
[2024-03-24] MEDS: Atorvastatin Calcium 10 MG TABLET PO (07:16)
[2024-03-24 07:47] LABS: Glucose, Whole Blood 138 mg/dL (60-115)
[2024-03-24 12:31] LABS: Glucose, Whole Blood 135 mg/dL (60-115)
[2024-03-24 14:48] VITALS: BP 137/77; PULSE 92; RESP 16; TEMP 36.5; O2SAT 98
--- NOTE | 2024-03-24 15:42 | PHA.MEDREC ---
Pharmacy Consult ? Medication Reconciliation Pharmacy has completed the medication reconciliation.
--- NOTE | 2024-03-24 15:53 | PC.NURSE ---
pt ambulatory lovenox held at this time
--- NOTE | 2024-03-24 17:24 | PC.NURSE ---
per MD Colbert, no need for IV at this time
[2024-03-24 19:26] VITALS: BP 141/89; PULSE 97; RESP 16; TEMP 36.6; O2SAT 97
== END 2024-03-24 20:47 | disposition admitted as inpatient to this hospital (09) ==
PROVIDERS: Physician Assistant; Physician Assistant Medical; Social Worker; Emergency Provider Internal Medicine
DX: S92.322A Displaced fracture of second metatarsal bone, left foot, initial encounter for closed fracture (principal); W01.0XXA Fall on same level from slipping, tripping and stumbling without subsequent striking against object, initial encounter; R41.89 Other symptoms and signs involving cognitive functions and awareness; E11.65 Type 2 diabetes mellitus with hyperglycemia; R51.9 Headache, unspecified; M79.605 Pain in left leg; L98.419 Non-pressure chronic ulcer of buttock with unspecified severity; Z79.84 Long term (current) use of oral hypoglycemic drugs; Z79.899 Other long term (current) drug therapy; Y93.9 Activity, unspecified; Y92.039 Unspecified place in apartment as the place of occurrence of the external cause; Y99.9 Unspecified external cause status
CPT/HCPCS: 36415; 70450; 72125; 73502; 73560; 73610; 73630; 80048; 80053; 80076; 81001; 82607; 82746; 82947; 83690; 83735; 84439; 84443; 84484; 85025; 85610; 87635; 93005; 96372; 97116; 97161; 97162; 97165; 97530; 99285

== ENCOUNTER → 2024-02-27 18:11 | Outpatient (BNV) | payer MEDICARE, SELFPAY | PROVIDERS: Emergency Provider Internal Medicine; Visit Provider Internal Medicine Cardiovascular Disease | DX: I45.81 Long QT syndrome (principal) | CPT/HCPCS: 93010 ==

== ENCOUNTER → 2024-02-27 20:03 | Outpatient (BNV) | payer OTHER, SELFPAY | PROVIDERS: Emergency Provider Internal Medicine; Visit Provider Social Worker | DX: R41.89 Other symptoms and signs involving cognitive functions and awareness (principal) | CPT/HCPCS: 99285 ==

== ENCOUNTER → 2024-03-24 15:04 | Outpatient (BNV) | payer MEDICARE, OTHER, SELFPAY | PROVIDERS: Admitting Provider Internal Medicine; Visit Provider Internal Medicine | DX: F03.90 Unspecified dementia, unspecified severity, without behavioral disturbance, psychotic disturbance, mood disturbance, and anxiety (principal) | CPT/HCPCS: 99222; 99231; 99232; 99233; 99239 ==

== ENCOUNTER 2024-03-24 15:20 | Outpatient (BNV) | payer MEDICARE, SELFPAY | END 2024-06-01 14:45 | PROVIDERS: Admitting Provider Internal Medicine; Visit Provider Internal Medicine Cardiovascular Disease | DX: R94.31 Abnormal electrocardiogram [ECG] [EKG] (principal) | CPT/HCPCS: 93010 ==

== ENCOUNTER 2024-03-24 15:20 | Observation (INO) | payer OTHER, SELFPAY ==
--- NOTE | ~2024-03-24 | XR_ITS ---
EXAMINATION: XR FOOT, LEFT CLINICAL INFORMATION: Fracture COMPARISON: Foot radiographs 02/27/2024 TECHNIQUE: 3 views of the foot FINDINGS: Again seen is chronic obliquely oriented fracture of the neck of the second metatarsal. Status post plate and screw fixation of the first metatarsal with similar chronic deformity. 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 Partially imaged ORIF of the distal tibia. Remote healed fracture deformity of the distal fibula. No definite acute fracture or dislocation. No tibiotalar joint effusion. Soft tissues are unremarkable. Disuse osteopenia. XR/XR foot LT min 3V IMPRESSION: 1. Again seen is chronic obliquely oriented fracture of the neck of the second metatarsal. 2. Status post plate and screw fixation of the first metatarsal with similar chronic deformity. 3. 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 4. Partially imaged ORIF of the distal tibia. Remote healed fracture deformity of the distal fibula. 5. Disuse osteopenia. 6. No definite acute fracture or dislocation.
--- NOTE | ~2024-03-24 | XR_ITS ---
EXAMINATION: XR FOOT, RIGHT CLINICAL INFORMATION: Fracture COMPARISON: Foot radiographs 03/03/2024 TECHNIQUE: 3 views of the foot FINDINGS: Subtle lucency along the base of the fifth proximal phalanx may possibly be superimposition secondary to overlying soft tissues though a nondisplaced fracture would be difficult to exclude consider dedicated radiographs of the toe and correlation point tenderness. Mild osteoarthritis of the foot with Achilles tendon enthesopathy, tibiotalar and dorsal midfoot osteophytes and borderline loss of first MTP joint space with hallux valgus deformity. Osteopenia. No joint effusion. Soft tissue swelling about the foot. XR/XR foot RT min 3V IMPRESSION: 1. Subtle lucency along the base of the fifth proximal phalanx may possibly be superimposition secondary to overlying soft tissues though a nondisplaced fracture would be difficult to exclude, consider dedicated radiographs of the toe and correlation point tenderness. 2. Mild osteoarthritis of the foot with hallux valgus deformity. 3. Soft tissue swelling about the foot. This exam was submitted to the interpreting radiologist for interpretation on 05/06/2024 10:05 AM.
--- NOTE | ~2024-03-24 | CT_ITS ---
EXAMINATION: CT PELVIS WITHOUT CONTRAST CLINICAL INFORMATION: Fall. Rule out hip fracture. COMPARISON: Left hip radiograph 02/27/2024. TECHNIQUE: Unenhanced and CT the pelvis with multiple coronal and sagittal reformatted images. This CT examination was performed using dose optimization techniques as appropriate, variously including the following: *Automated exposure control *Adjustment of mA and/or kV according to patient size (this includes techniques or standardized protocols for targeted exams where dose is matched to indication/reason for exam; i.e. extremities or head) *Use of iterative reconstruction technique DLP: 1333 mGy-cm FINDINGS: No subcutaneous soft tissue inflammatory changes are identified. The visualized pelvis, marked diffuse aortoiliac calcific atherosclerosis is visualized. No free intraperitoneal fluid or gas collections noted. Moderate sigmoid diverticulosis is identified. No intestinal dilatation or mural thickening visualized. Multilevel intervertebral disc space narrowing and vacuum phenomenon is present within the visualized lumbar spine. Grade 1 degenerative anterolisthesis of L4 and L5 is present. Within the visualized lumbar spine, sacrum and coccyx, no fractures or acute appearing subluxations identified. No pelvic fractures or subluxations identified. The visualized proximal femurs demonstrate no fractures or acute appearing subluxations. Right hip demonstrates marked superior joint space narrowing and moderate subchondral sclerosis and subchondral cyst formation. Mild superior joint space narrowing of the right hip is visualized. These enthesopathic changes are noted in association with the greater trochanters bilaterally findings most pronounced on the left. No hip joint effusions noted. CT/CT pelvis wo IV con IMPRESSION: Unenhanced CT the pelvis and left and right hips: *No acute abnormalities identified. No fractures or acute subluxations visualized. *Moderate sigmoid diverticulosis. *Diffuse aortoiliac calcific atherosclerosis. *Moderate-marked right hip osteoarthritis, mild-moderate left hip osteoarthritis.
--- NOTE | ~2024-03-24 | CT_ITS ---
EXAMINATION: CT CERVICAL SPINE WITHOUT CONTRAST; UNENHANCED CT OF THE HEAD. CLINICAL INFORMATION: Fall, hit head. COMPARISON: CT head 02/27/2024. TECHNIQUE: Routine unenhanced CT of the head with multiple coronal and sagittal reformatted images; routine unenhanced CT of the cervical spine with multiple coronal and sagittal reformatted images. This CT examination was performed using dose optimization techniques as appropriate, variously including the following: *Automated exposure control *Adjustment of mA and/or kV according to patient size (this includes techniques or standardized protocols for targeted exams where dose is matched to indication/reason for exam; i.e. extremities or head) *Use of iterative reconstruction technique DLP: 1333 mGy-cm FINDINGS: No intracranial hemorrhage, tumors or acute infarcts identified. Mild diffuse commensurate prominence of ventricles and sulci. Moderate scattered subcortical and periventricular white matter patchy hypodensities. Mild segmental calcific atherosclerotic plaques within the cavernous portions of the internal carotid arteries bilateral lens replacements are noted. A fluid-gas levels present in right maxillary sinus. Mild retained secretions are noted in the left maxillary sinus. There is lies secretions are present in the sphenoid sinus. No mastoid or middle ear cavity effusions noted. CT cervical spine: No fractures, malalignments or acute appearing subluxations identified. Moderate multilevel facet and endplate hypertrophic changes and moderate multilevel intervertebral disc space narrowing. No prevertebral fluid collections or soft tissue inflammatory changes. A 10 mm nodule is present in the left lobe of thyroid on the basis of this examination, no additional imaging follow-up is warranted. CT/CT cervical spine wo IV con IMPRESSION: CT HEAD: 1. No acute intracranial abnormalities. 2. Moderate white matter chronic small vessel ischemic changes. 3. Gas-fluid level within the right maxillary sinus suspicious for acute sinusitis. Findings could also represent fluid within the right maxillary sinus related to otherwise nonvisualized maxillofacial trauma. If clinical symptoms concern is present regarding maxillofacial trauma consider further evaluation with dedicated maxillofacial CT. CT CERVICAL SPINE: 1. No acute abnormalities. 2. Moderate multilevel chronic spondylosis.
--- NOTE | 2024-03-24 15:25 | PM.IMHP ---
History of Present Illness Date of Service: 03/24/24 Chief Complaint: Placement 88F H vascular dementia, diabetes, hypertension, hyperlipidemia, peptic ulcer disease presented with mechanical fall complicated by left Oblique mildly displaced fracture of the neck of the second metatarsal. Has been in the ER waiting for guardianship and placement. Has no active complaints Review of Systems Review of Systems: Yes all other systems are reviewed and are negative Meds Allergies Allergy/AdvReac Type Severity Reaction Status Date / Time codeine Allergy Unknown Unknown Verified 02/27/24 18:11 Codeine Allergy Unknown Unknown Uncoded 02/27/24 18:11 Active Medications: Current Medications Enoxaparin Sodium (Enoxaparin Sodium 40 Mg/0.4 Ml Syringe) 40 mg SUBCUT Q24H REMY Sodium Chloride (0.9 % Sodium Chloride Flush 3 Ml Syringe) 3 ml IVFLUSH QSHIFT REMY Home Medications ?Medication ?Instructions ?Recorded ?Confirmed ?Last Taken ?Type acetaminophen 325 mg tablet 325 mg PO Q6H PRN pain 02/28/24 03/24/24 Unknown History amitriptyline 25 mg tablet 25 mg PO BEDTIME 02/28/24 03/24/24 Unknown History aspirin 81 mg tablet,delayed 81 mg PO DAILY 02/28/24 03/24/24 Unknown History release atorvastatin 10 mg tablet 10 mg PO DAILY 02/28/24 02/28/24 Unknown History blood-glucose sensor (Dexcom G7 02/28/24 03/24/24 Unknown History Sensor device) empagliflozin 10 mg tablet 10 mg PO DAILY 02/28/24 03/24/24 Unknown History (Jardiance) glipizide 10 mg tablet 10 mg PO BID 02/28/24 03/24/24 Unknown History melatonin 3 mg tablet 3 mg PO BEDTIME PRN Insomnia 02/28/24 03/24/24 Unknown History nitroglycerin 0.4 mg sublingual 0.4 mg sublingual Q5M PRN angina 02/28/24 03/24/24 Unknown History tablet omeprazole 20 mg capsule,delayed 20 mg PO DAILY 02/28/24 03/24/24 Unknown History release sitagliptin phosphate 100 mg 100 mg PO DAILY 02/28/24 03/24/24 Unknown History tablet (Januvia) Physical Exam Vital Signs and Narrative: General: AO X 3, no acute distress Resp: CTA bilateral, no accessory muscles used CVS: S1,S2,RRR GI: soft, non tender, non distended Neuro: motor grossly intact, alert Psych: appropriate affect, impaired insight Assessment and Plan (1) Foot fracture, left: Status: Acute Plan 88F PMH vascular dementia, diabetes, hypertension, hyperlipidemia, peptic ulcer disease presented with mechanical fall complicated left foot fracture Mechanical fall with left foot fracture Weight-bearing with boot only PT Diabetes Continue glipizide, Januvia, Jardiance, monitor POC Vascular dementia Stable, guardianship pending Peptic ulcer disease Continue omeprazole DVT prophylaxis with Lovenox Full Code reason for continued hospitalization: Awaiting guardianship and placement Quality Stroke Does the patient have a stroke diagnosis?: No VTE Prior VTE?: No VTE Risk Level:: Medical - moderate - high VTE Device Contraindication: Treatment Not Indicated VTE Drug Contraindication: N/A - Med Ordered
[2024-03-24 17:48] LABS: Estimated Glomerular Filt Rate > 60
[2024-03-24 21:14] LABS: Glucose, Whole Blood 260 mg/dL (60-115)
--- NOTE | 2024-03-24 21:53 | MHC.CM.ED ---
Pt does not have capacity to make medical decisions. Guardianship court scheduled for 03/30 at 9am in person. Paperwork given to patient yesterday. Pt had a MOCA 08/02. Pt needs LTC placement. Will need [facility] after guardianship. Pt has a son who is not in contact with her. Pt does not believe there is anything wrong with her. She believes she is capable. Pt will be a social admit, as she has been in the ED for 26 days. Unable to review IMM with patient. D/C plan is eventual LTC. Pt is ambulatory and could be a flight risk. Pt has not displayed any behaviors while in the hospital.
[2024-03-24] MEDS: Enoxaparin Sodium 40 MG/0.4 ML SYRINGE SUBCUT (23:19)
[2024-03-24] MEDS: Atorvastatin Calcium 10 MG TABLET PO (23:19)
[2024-03-24] MEDS: glipiZIDE 10 MG TABLET PO (23:19)
[2024-03-25] VITALS: BP 137/68; PULSE 89; RESP 18; TEMP 36.6; O2SAT 98
[2024-03-25 04:00] VITALS: BP 126/62; PULSE 73; RESP 16; TEMP 36.9; O2SAT 92
[2024-03-25] MEDS: Omeprazole 20 MG CAPSULE.DR PO (06:11)
--- NOTE | 2024-03-25 07:09 | PHA.MEDREC ---
Pharmacy Consult ? Medication Reconciliation Pharmacy has completed the medication reconciliation.
[2024-03-25 07:13] LABS: Glucose, Whole Blood 130 mg/dL (60-115)
[2024-03-25 07:54] VITALS: BP 130/71; PULSE 91; RESP 18; TEMP 36.4; O2SAT 99
[2024-03-25] MEDS: SITagliptin Phosphate 100 MG TABLET PO (08:05)
[2024-03-25] MEDS: Aspirin Enteric Coated 81 MG TABLET.DR PO (08:05)
[2024-03-25] MEDS: Empagliflozin 10 MG TABLET PO (08:05)
[2024-03-25] MEDS: glipiZIDE 10 MG TABLET PO ×2 (08:05→22:07)
[2024-03-25] MEDS: Acetaminophen 325 MG TABLET 650 MG PO (10:53)
[2024-03-25 10:58] LABS: Glucose, Whole Blood 124 mg/dL (60-115)
--- NOTE | 2024-03-25 11:03 | P.PNIM_ITS ---
Subjective Subjective Date of Service: 03/25/24 Interval History: no complaints Physical Exam 2 Vital Signs: Vital Signs: Last Vital Signs Temp 97.6 F 03/25/24 07:54 Pulse 91 03/25/24 07:54 Resp 18 03/25/24 07:54 BP 130/71 03/25/24 07:54 Pulse Ox 99 03/25/24 07:54 O2 Del Method Room Air 03/25/24 07:54 General: AO X 3, no acute distress Resp: CTA bilateral, no accessory muscles used CVS: S1,S2,RRR GI: soft, non tender, non distended Neuro: motor grossly intact, alert Psych: appropriate affect, appropriate insight Objective Data Active Medications Acetaminophen (Acetaminophen 325 Mg Tablet) 650 mg PO Q4H PRN PRN Reason: headache or pain Last Admin: 03/25/24 10:53 Dose: 650 mg Documented By: CEDRICK Amitriptyline HCl (Amitriptyline Hcl 25 Mg Tablet) 25 mg PO BEDTIME [facility] Last Admin: 03/24/24 23:27 Dose: Not Given Documented By: JOSHUA Non-Admin Reason: Patient Refused Aspirin (Aspirin Enteric Coated 81 Mg Tablet.) 81 mg PO DAILY [facility] Last Admin: 03/25/24 08:05 Dose: 81 mg Documented By: CEDRICK Atorvastatin Calcium (Atorvastatin Calcium 10 Mg Tablet) 10 mg PO BEDTIME [facility] Last Admin: 03/24/24 23:19 Dose: 10 mg Documented By: JOSHUA Empagliflozin (Empagliflozin 10 Mg Tablet) 10 mg PO DAILY [facility] Last Admin: 03/25/24 08:05 Dose: 10 mg Documented By: CEDRICK Enoxaparin Sodium (Enoxaparin Sodium 40 Mg/0.4 Ml Syringe) 40 mg SUBCUT Q24H [facility] Last Admin: 03/24/24 23:19 Dose: 40 mg Documented By: JOSHUA Glipizide (Glipizide 10 Mg Tablet) 10 mg PO BID [facility] Last Admin: 03/25/24 08:05 Dose: 10 mg Documented By: CEDRICK Melatonin (Melatonin 3 Mg Tablet) 3 mg PO BEDTIME PRN PRN Reason: Insomnia Nitroglycerin (Nitroglycerin 0.4 Mg Tab.Subl) 0.4 mg SUBLINGUAL Q5M PRN PRN Reason: angina Omeprazole (Omeprazole 20 Mg Capsule.) 20 mg PO DAILY@0630 [facility] Last Admin: 03/25/24 06:11 Dose: 20 mg Documented By: JOSHUA Sitagliptin Phosphate (Sitagliptin Phosphate 100 Mg Tablet) 100 mg PO DAILY [facility] Last Admin: 03/25/24 08:05 Dose: 100 mg Documented By: CEDRICK Sodium Chloride (0.9 % Sodium Chloride Flush 3 Ml Syringe) 3 ml IVFLUSH QSHIFT [facility] Last Admin: 03/25/24 08:05 Dose: Not Given Documented By: CEDRICK Non-Admin Reason: No Access Labs 03/24/24 16:45 Labs: Laboratory Results - last 24 hr 03/24/24 03/24/24 03/25/24 16:45 21:00 07:07 Estim Creat Clear Calc TNP Estimated GFR > 60 POC Glucose 260 H 130 H 03/25/24 10:51 Estim Creat Clear Calc Estimated GFR POC Glucose 124 H Assessment and Plan (1) Cognitive impairment: Status: Acute Plan 88F [facility] vascular dementia, diabetes, hypertension, hyperlipidemia, peptic ulcer disease presented with mechanical fall complicated left foot fracture Mechanical fall with left foot fracture Weight-bearing with boot only PT Diabetes Continue glipizide, Januvia, Jardiance, monitor POC Vascular dementia Stable, guardianship pending Peptic ulcer disease Continue omeprazole DVT prophylaxis with Lovenox Full Code reason for continued hospitalization: Awaiting guardianship and placement Quality Stroke Does the patient have a stroke diagnosis?: No VTE Prior VTE?: No VTE Risk Level:: Medical - moderate - high VTE Device Contraindication: Treatment Not Indicated VTE Drug Contraindication: N/A - Med Ordered
[2024-03-25 11:14] VITALS: BP 130/71; PULSE 95; RESP 18; TEMP 36.6; O2SAT 99
[2024-03-25 15:29] VITALS: BP 147/78; PULSE 91; RESP 16; TEMP 36.7; O2SAT 97
[2024-03-25 16:16] LABS: Glucose, Whole Blood 125 mg/dL (60-115)
[2024-03-25] MEDS: Enoxaparin Sodium 40 MG/0.4 ML SYRINGE SUBCUT (18:23)
[2024-03-25 19:40] VITALS: BMI 24.5
[2024-03-25 19:59] VITALS: BP 118/58; PULSE 89; RESP 16; TEMP 36.5; O2SAT 98
[2024-03-25 20:20] LABS: Glucose, Whole Blood 146 mg/dL (60-115)
[2024-03-25] MEDS: Atorvastatin Calcium 10 MG TABLET PO (22:07)
[2024-03-26] VITALS: BP 131/62; PULSE 88; RESP 16; TEMP 36; O2SAT 99
[2024-03-26 04:00] VITALS: BP 132/63; PULSE 77; RESP 16; TEMP 36.1; O2SAT 97
[2024-03-26] MEDS: Omeprazole 20 MG CAPSULE.DR PO (06:12)
[2024-03-26 07:04] LABS: Glucose, Whole Blood 93 mg/dL (60-115)
[2024-03-26 07:07] VITALS: BP 136/72; PULSE 84; RESP 20; TEMP 36.3; O2SAT 99
[2024-03-26 07:08] LABS: Glucose, Whole Blood 239 mg/dL (60-115)
--- NOTE | 2024-03-26 09:09 | P.PNIM_ITS ---
Subjective Subjective Date of Service: 03/26/24 Interval History: no complaints Physical Exam 2 Vital Signs: Vital Signs: Last Vital Signs Temp 97.4 F 03/26/24 07:07 Pulse 84 03/26/24 07:07 Resp 20 03/26/24 07:07 BP 136/72 03/26/24 07:07 Pulse Ox 99 03/26/24 07:07 O2 Del Method Room Air 03/26/24 07:07 BMI result Body Mass Index 24.5 General: AO X 3, no acute distress Resp: CTA bilateral, no accessory muscles used CVS: S1,S2,RRR GI: soft, non tender, non distended Neuro: motor grossly intact, alert Psych: appropriate affect, appropriate insight Objective Data Active Medications Acetaminophen (Acetaminophen 325 Mg Tablet) 650 mg PO Q4H PRN PRN Reason: headache or pain Last Admin: 03/25/24 10:53 Dose: 650 mg Documented By: CEDRICK Amitriptyline HCl (Amitriptyline Hcl 25 Mg Tablet) 25 mg PO BEDTIME [facility] Last Admin: 03/25/24 22:07 Dose: 25 mg Documented By: SHAISTA Aspirin (Aspirin Enteric Coated 81 Mg Tablet.) 81 mg PO DAILY [facility] Last Admin: 03/25/24 08:05 Dose: 81 mg Documented By: CEDRICK Atorvastatin Calcium (Atorvastatin Calcium 10 Mg Tablet) 10 mg PO BEDTIME [facility] Last Admin: 03/25/24 22:07 Dose: 10 mg Documented By: SHAISTA Empagliflozin (Empagliflozin 10 Mg Tablet) 10 mg PO DAILY [facility] Last Admin: 03/25/24 08:05 Dose: 10 mg Documented By: CEDRICK Enoxaparin Sodium (Enoxaparin Sodium 40 Mg/0.4 Ml Syringe) 40 mg SUBCUT Q24H [facility] Last Admin: 03/25/24 18:23 Dose: 40 mg Documented By: CEDRICK Glipizide (Glipizide 10 Mg Tablet) 10 mg PO BID [facility] Last Admin: 03/25/24 22:07 Dose: 10 mg Documented By: SHAISTA Melatonin (Melatonin 3 Mg Tablet) 3 mg PO BEDTIME PRN PRN Reason: Insomnia Nitroglycerin (Nitroglycerin 0.4 Mg Tab.Subl) 0.4 mg SUBLINGUAL Q5M PRN PRN Reason: angina Omeprazole (Omeprazole 20 Mg Capsule.) 20 mg PO DAILY@0630 [facility] Last Admin: 03/26/24 06:12 Dose: 20 mg Documented By: SHAISTA Sitagliptin Phosphate (Sitagliptin Phosphate 100 Mg Tablet) 100 mg PO DAILY [facility] Last Admin: 03/25/24 08:05 Dose: 100 mg Documented By: CEDRICK Sodium Chloride (0.9 % Sodium Chloride Flush 3 Ml Syringe) 3 ml IVFLUSH QSHIFT [facility] Last Admin: 03/25/24 22:08 Dose: Not Given Documented By: SHAISTA Non-Admin Reason: No Access Labs 03/24/24 16:45 Labs: Laboratory Results - last 24 hr 03/24/24 03/25/24 03/25/24 16:46 10:51 16:08 POC Glucose 239 H 124 H 125 H 03/25/24 03/26/24 19:51 06:59 POC Glucose 146 H 93 Assessment and Plan (1) Cognitive impairment: Status: Acute Plan 88F PMH vascular dementia, diabetes, hypertension, hyperlipidemia, peptic ulcer disease presented with mechanical fall complicated left foot fracture Mechanical fall with left foot fracture Weight-bearing with boot only PT Diabetes Continue glipizide, Januvia, Jardiance, monitor POC Vascular dementia Stable, guardianship pending Peptic ulcer disease Continue omeprazole DVT prophylaxis with Lovenox Full Code reason for continued hospitalization: Awaiting guardianship and placement Quality Stroke Does the patient have a stroke diagnosis?: No VTE Prior VTE?: No VTE Risk Level:: Medical - moderate - high VTE Device Contraindication: Treatment Not Indicated VTE Drug Contraindication: N/A - Med Ordered
[2024-03-26] MEDS: Aspirin Enteric Coated 81 MG TABLET.DR PO (09:20)
[2024-03-26] MEDS: Empagliflozin 10 MG TABLET PO (09:20)
[2024-03-26] MEDS: Acetaminophen 325 MG TABLET 650 MG PO ×2 (09:20→21:42)
[2024-03-26] MEDS: glipiZIDE 10 MG TABLET PO ×2 (09:20→21:42)
[2024-03-26] MEDS: SITagliptin Phosphate 100 MG TABLET PO (09:20)
[2024-03-26 10:59] LABS: Glucose, Whole Blood 298 mg/dL (60-115)
[2024-03-26 11:10] VITALS: BP 102/58; PULSE 88; RESP 18; TEMP 36.6; O2SAT 99
--- NOTE | 2024-03-26 12:17 | MHC.CM.PN ---
EMR REVIEWED, PT HAS COURT DATE FOR GUARDIANSHIP 03/30 AT 0900, DELIO LINDSEY EXPECTED TO BE GRANTED GUARDIANSHIP, PT WILL ALSO NEED LTC PLACEMENT, SNF REFERRAL PLACED AND CM WILL CONT TO FOLLOW DC NEEDS.
[2024-03-26 15:08] VITALS: BP 107/53; PULSE 87; RESP 18; TEMP 36.3; O2SAT 98
[2024-03-26 16:06] LABS: Glucose, Whole Blood 183 mg/dL (60-115)
[2024-03-26] MEDS: Enoxaparin Sodium 40 MG/0.4 ML SYRINGE SUBCUT (18:41)
[2024-03-26 19:41] VITALS: BP 119/69; PULSE 86; RESP 20; TEMP 36.4; O2SAT 97
[2024-03-26 20:54] LABS: Glucose, Whole Blood 207 mg/dL (60-115)
[2024-03-26] MEDS: Atorvastatin Calcium 10 MG TABLET PO (21:46)
[2024-03-27] VITALS (8 sets, daily range): BP systolic 106–168; BP diastolic 58–80; PULSE 74–95; RESP 16–20; TEMP 36.3–37.3; O2SAT 96–98
[2024-03-27] MEDS: Omeprazole 20 MG CAPSULE.DR PO (05:46)
[2024-03-27 07:48] LABS: Glucose, Whole Blood 117 mg/dL (60-115)
[2024-03-27] MEDS: oxyCODONE HCl Immed Release 5 MG TABLET PO (08:12)
[2024-03-27] MEDS: SITagliptin Phosphate 100 MG TABLET PO (08:13)
[2024-03-27] MEDS: Aspirin Enteric Coated 81 MG TABLET.DR PO (08:13)
[2024-03-27] MEDS: Empagliflozin 10 MG TABLET PO (08:13)
[2024-03-27] MEDS: glipiZIDE 10 MG TABLET PO ×2 (08:13→23:27)
--- NOTE | 2024-03-27 10:33 | HO.PM.IMPN ---
Subjective Subjective Date of Service: 03/27/24 Interval History: no complaints Physical Exam Vital Signs: Vital Signs: Last Vital Signs Temp 97.7 F 03/27/24 07:33 Pulse 93 03/27/24 07:33 Resp 16 03/27/24 07:33 BP 140/68 H 03/27/24 08:00 Pulse Ox 98 03/27/24 07:33 O2 Del Method Room Air 03/27/24 07:33 BMI result Body Mass Index 24.5 General: AO X 3, no acute distress Resp: CTA bilateral, no accessory muscles used CVS: S1,S2,RRR GI: soft, non tender, non distended Neuro: motor grossly intact, alert Psych: appropriate affect, appropriate insight Objective Data Active Medications Acetaminophen (Acetaminophen 325 Mg Tablet) 650 mg PO Q4H PRN PRN Reason: headache or pain Last Admin: 03/26/24 21:42 Dose: 650 mg Documented By: OSMAR Amitriptyline HCl (Amitriptyline Hcl 25 Mg Tablet) 25 mg PO BEDTIME [facility] Last Admin: 03/26/24 21:30 Dose: Not Given Documented By: OSMAR Non-Admin Reason: Patient Refused Aspirin (Aspirin Enteric Coated 81 Mg Tablet.) 81 mg PO DAILY [facility] Last Admin: 03/27/24 08:13 Dose: 81 mg Documented By: MARY Atorvastatin Calcium (Atorvastatin Calcium 10 Mg Tablet) 10 mg PO BEDTIME [facility] Last Admin: 03/26/24 21:46 Dose: 10 mg Documented By: OSMAR Empagliflozin (Empagliflozin 10 Mg Tablet) 10 mg PO DAILY [facility] Last Admin: 03/27/24 08:13 Dose: 10 mg Documented By: MARY Enoxaparin Sodium (Enoxaparin Sodium 40 Mg/0.4 Ml Syringe) 40 mg SUBCUT Q24H [facility] Last Admin: 03/26/24 18:41 Dose: 40 mg Documented By: CEDRICK Glipizide (Glipizide 10 Mg Tablet) 10 mg PO BID [facility] Last Admin: 03/27/24 08:13 Dose: 10 mg Documented By: MARY Melatonin (Melatonin 3 Mg Tablet) 3 mg PO BEDTIME PRN PRN Reason: Insomnia Nitroglycerin (Nitroglycerin 0.4 Mg Tab.Subl) 0.4 mg SUBLINGUAL Q5M PRN PRN Reason: angina Omeprazole (Omeprazole 20 Mg Capsule.Dr) 20 mg PO DAILY@0630 [facility] Last Admin: 03/27/24 05:46 Dose: 20 mg Documented By: OSMAR Oxycodone HCl (Oxycodone Hcl Immed Release 5 Mg Tablet) 5 mg PO Q4H PRN PRN Reason: left leg pain Last Admin: 03/27/24 08:12 Dose: 5 mg Documented By: MARY Sitagliptin Phosphate (Sitagliptin Phosphate 100 Mg Tablet) 100 mg PO DAILY [facility] Last Admin: 03/27/24 08:13 Dose: 100 mg Documented By: MARY Sodium Chloride (0.9 % Sodium Chloride Flush 3 Ml Syringe) 3 ml IVFLUSH QSHIFT [facility] Last Admin: 03/27/24 08:13 Dose: Not Given Documented By: MARY Non-Admin Reason: No Access Labs 03/24/24 16:45 Labs: Laboratory Results - last 24 hr 03/26/24 03/26/24 03/26/24 10:53 15:56 20:35 POC Glucose 298 H 183 H 207 H 03/27/24 07:35 POC Glucose 117 H Assessment and Plan (1) Cognitive impairment: Status: Acute Plan 88F PMH vascular dementia, diabetes, hypertension, hyperlipidemia, peptic ulcer disease presented with mechanical fall complicated left foot fracture Mechanical fall with left foot fracture Weight-bearing with boot only PT pain control Diabetes Continue glipizide, Januvia, Jardiance, monitor POC Vascular dementia Stable, guardianship pending Peptic ulcer disease Continue omeprazole DVT prophylaxis with Lovenox Full Code reason for continued hospitalization: Awaiting guardianship and placement Quality Stroke Does the patient have a stroke diagnosis?: No VTE Prior VTE?: No VTE Risk Level:: Medical - moderate - high VTE Device Contraindication: Treatment Not Indicated VTE Drug Contraindication: N/A - Med Ordered
[2024-03-27 11:29] LABS: Glucose, Whole Blood 260 mg/dL (60-115)
[2024-03-27 16:29] LABS: Glucose, Whole Blood 188 mg/dL (60-115)
[2024-03-27] MEDS: Enoxaparin Sodium 40 MG/0.4 ML SYRINGE SUBCUT (17:57)
[2024-03-27 21:18] LABS: Glucose, Whole Blood 141 mg/dL (60-115)
[2024-03-27] MEDS: Atorvastatin Calcium 10 MG TABLET PO (23:27)
[2024-03-27] MEDS: Amitriptyline HCl 25 MG TABLET PO (23:27)
[2024-03-28 03:28] VITALS: BP 132/63; PULSE 79; RESP 18; TEMP 37.3; O2SAT 97
[2024-03-28 07:59] LABS: Glucose, Whole Blood 99 mg/dL (60-115)
[2024-03-28 08:00] VITALS: BP 124/60; PULSE 90; RESP 16; TEMP 36.2; O2SAT 97
[2024-03-28] MEDS: glipiZIDE 10 MG TABLET PO ×2 (08:59→21:04)
[2024-03-28] MEDS: SITagliptin Phosphate 100 MG TABLET PO (08:59)
[2024-03-28] MEDS: Empagliflozin 10 MG TABLET PO (08:59)
[2024-03-28] MEDS: Aspirin Enteric Coated 81 MG TABLET.DR PO (08:59)
[2024-03-28] MEDS: oxyCODONE HCl Immed Release 5 MG TABLET PO ×2 (08:59→22:51)
--- NOTE | 2024-03-28 09:13 | HO.PM.IMPN ---
Subjective Subjective Date of Service: 03/28/24 Interval History: no complaints Physical Exam Vital Signs: Vital Signs: Last Vital Signs Temp 97.1 F 03/28/24 08:00 Pulse 90 03/28/24 08:00 Resp 16 03/28/24 08:00 BP 124/60 03/28/24 08:00 Pulse Ox 97 03/28/24 08:00 O2 Del Method Room Air 03/28/24 08:00 BMI result Body Mass Index 24.5 General: AO X 3, no acute distress Resp: CTA bilateral, no accessory muscles used CVS: S1,S2,RRR GI: soft, non tender, non distended Neuro: motor grossly intact, alert Psych: appropriate affect, appropriate insight Objective Data Active Medications Acetaminophen (Acetaminophen 325 Mg Tablet) 650 mg PO Q4H PRN PRN Reason: headache or pain Last Admin: 03/26/24 21:42 Dose: 650 mg Documented By: OSMAR Amitriptyline HCl (Amitriptyline Hcl 25 Mg Tablet) 25 mg PO BEDTIME [facility] Last Admin: 03/27/24 23:27 Dose: 25 mg Documented By: PATY Aspirin (Aspirin Enteric Coated 81 Mg Tablet.) 81 mg PO DAILY [facility] Last Admin: 03/28/24 08:59 Dose: 81 mg Documented By: MARY Atorvastatin Calcium (Atorvastatin Calcium 10 Mg Tablet) 10 mg PO BEDTIME [facility] Last Admin: 03/27/24 23:27 Dose: 10 mg Documented By: PATY Empagliflozin (Empagliflozin 10 Mg Tablet) 10 mg PO DAILY [facility] Last Admin: 03/28/24 08:59 Dose: 10 mg Documented By: MARY Enoxaparin Sodium (Enoxaparin Sodium 40 Mg/0.4 Ml Syringe) 40 mg SUBCUT Q24H [facility] Last Admin: 03/27/24 17:57 Dose: 40 mg Documented By: MARY Glipizide (Glipizide 10 Mg Tablet) 10 mg PO BID [facility] Last Admin: 03/28/24 08:59 Dose: 10 mg Documented By: MARY Melatonin (Melatonin 3 Mg Tablet) 3 mg PO BEDTIME PRN PRN Reason: Insomnia Nitroglycerin (Nitroglycerin 0.4 Mg Tab.Subl) 0.4 mg SUBLINGUAL Q5M PRN PRN Reason: angina Omeprazole (Omeprazole 20 Mg Capsule.) 20 mg PO DAILY@0630 [facility] Last Admin: 03/28/24 06:30 Dose: Not Given Documented By: PATY Non-Admin Reason: Patient Refused Oxycodone HCl (Oxycodone Hcl Immed Release 5 Mg Tablet) 5 mg PO Q4H PRN PRN Reason: left leg pain Last Admin: 03/28/24 08:59 Dose: 5 mg Documented By: MARY Sitagliptin Phosphate (Sitagliptin Phosphate 100 Mg Tablet) 100 mg PO DAILY [facility] Last Admin: 03/28/24 08:59 Dose: 100 mg Documented By: MARY Sodium Chloride (0.9 % Sodium Chloride Flush 3 Ml Syringe) 3 ml IVFLUSH QSHIFT [facility] Last Admin: 03/28/24 08:56 Dose: Not Given Documented By: MARY Non-Admin Reason: No Access Labs 03/24/24 16:45 Labs: Laboratory Results - last 24 hr 03/27/24 03/27/24 03/27/24 11:16 16:21 21:06 POC Glucose 260 H 188 H 141 H 03/28/24 07:55 POC Glucose 99 Assessment and Plan (1) Cognitive impairment: Status: Acute Plan 88F H vascular dementia, diabetes, hypertension, hyperlipidemia, peptic ulcer disease presented with mechanical fall complicated left foot fracture Mechanical fall with left foot fracture Weight-bearing with boot only PT pain control Diabetes Continue glipizide, Januvia, Jardiance, monitor POC Vascular dementia Stable, guardianship pending Peptic ulcer disease Continue omeprazole DVT prophylaxis with Lovenox Full Code reason for continued hospitalization: Awaiting guardianship and placement Quality Stroke Does the patient have a stroke diagnosis?: No VTE Prior VTE?: No VTE Risk Level:: Medical - moderate - high VTE Device Contraindication: Treatment Not Indicated VTE Drug Contraindication: N/A - Med Ordered
[2024-03-28 11:49] LABS: Glucose, Whole Blood 147 mg/dL (60-115)
[2024-03-28 12:00] VITALS: BP 106/55; PULSE 83; RESP 16; TEMP 36.2; O2SAT 96
[2024-03-28 16:00] VITALS: BP 130/79; PULSE 82; RESP 16; TEMP 36.6; O2SAT 98
[2024-03-28 16:34] LABS: Glucose, Whole Blood 147 mg/dL (60-115)
[2024-03-28 20:00] VITALS: BP 113/56; PULSE 85; RESP 18; TEMP 37.1; O2SAT 98
[2024-03-28] MEDS: Atorvastatin Calcium 10 MG TABLET PO (21:04)
[2024-03-28 21:39] LABS: Glucose, Whole Blood 235 mg/dL (60-115)
[2024-03-29] VITALS: BP 128/70; PULSE 84; RESP 20; TEMP 36.7; O2SAT 98
[2024-03-29 04:00] VITALS: BP 125/64; PULSE 79; RESP 18; TEMP 36.7; O2SAT 97
[2024-03-29] MEDS: Omeprazole 20 MG CAPSULE.DR PO (05:59)
[2024-03-29] MEDS: oxyCODONE HCl Immed Release 5 MG TABLET PO ×3 (05:59→20:33)
[2024-03-29 07:25] LABS: Glucose, Whole Blood 95 mg/dL (60-115)
[2024-03-29 07:34] VITALS: BP 112/59; PULSE 74; RESP 18; TEMP 36.1; O2SAT 98
--- NOTE | 2024-03-29 07:43 | P.PNIM_ITS ---
Subjective Subjective Date of Service: 03/29/24 Interval History: no complaints Physical Exam 2 Vital Signs: Vital Signs: Last Vital Signs Temp 97.0 F 03/29/24 07:34 Pulse 74 03/29/24 07:34 Resp 18 03/29/24 07:34 BP 112/59 L 03/29/24 07:34 Pulse Ox 98 03/29/24 07:34 O2 Del Method Room Air 03/29/24 07:34 BMI result Body Mass Index 24.5 General: AO X 3, no acute distress Resp: CTA bilateral, no accessory muscles used CVS: S1,S2,RRR GI: soft, non tender, non distended Neuro: motor grossly intact, alert Psych: appropriate affect, appropriate insight Objective Data Active Medications Acetaminophen (Acetaminophen 325 Mg Tablet) 650 mg PO Q4H PRN PRN Reason: headache or pain Last Admin: 03/26/24 21:42 Dose: 650 mg Documented By: OSMAR Amitriptyline HCl (Amitriptyline Hcl 25 Mg Tablet) 25 mg PO BEDTIME [facility] Last Admin: 03/28/24 21:03 Dose: Not Given Documented By: CARYN Non-Admin Reason: Patient Refused Aspirin (Aspirin Enteric Coated 81 Mg Tablet.) 81 mg PO DAILY [facility] Last Admin: 03/28/24 08:59 Dose: 81 mg Documented By: MARY Atorvastatin Calcium (Atorvastatin Calcium 10 Mg Tablet) 10 mg PO BEDTIME [facility] Last Admin: 03/28/24 21:04 Dose: 10 mg Documented By: CARYN Empagliflozin (Empagliflozin 10 Mg Tablet) 10 mg PO DAILY [facility] Last Admin: 03/28/24 08:59 Dose: 10 mg Documented By: MARY Enoxaparin Sodium (Enoxaparin Sodium 40 Mg/0.4 Ml Syringe) 40 mg SUBCUT Q24H [facility] Last Admin: 03/28/24 21:02 Dose: Not Given Documented By: CARYN Non-Admin Reason: pt said alredy got by prev RN Glipizide (Glipizide 10 Mg Tablet) 10 mg PO BID [facility] Last Admin: 03/28/24 21:04 Dose: 10 mg Documented By: CARYN Melatonin (Melatonin 3 Mg Tablet) 3 mg PO BEDTIME PRN PRN Reason: Insomnia Nitroglycerin (Nitroglycerin 0.4 Mg Tab.Subl) 0.4 mg SUBLINGUAL Q5M PRN PRN Reason: angina Omeprazole (Omeprazole 20 Mg Capsule.Dr) 20 mg PO DAILY@0630 [facility] Last Admin: 03/29/24 05:59 Dose: 20 mg Documented By: CARYN Oxycodone HCl (Oxycodone Hcl Immed Release 5 Mg Tablet) 5 mg PO Q4H PRN PRN Reason: left leg pain Last Admin: 03/29/24 05:59 Dose: 5 mg Documented By: CARYN Sitagliptin Phosphate (Sitagliptin Phosphate 100 Mg Tablet) 100 mg PO DAILY [facility] Last Admin: 03/28/24 08:59 Dose: 100 mg Documented By: MARY Sodium Chloride (0.9 % Sodium Chloride Flush 3 Ml Syringe) 3 ml IVFLUSH QSHIFT [facility] Last Admin: 03/28/24 21:04 Dose: Not Given Documented By: CARYN Non-Admin Reason: No Access Labs 03/24/24 16:45 Labs: Laboratory Results - last 24 hr 03/28/24 03/28/24 03/28/24 07:55 10:38 16:18 POC Glucose 99 147 H 147 H 03/28/24 03/29/24 21:30 07:18 POC Glucose 235 H 95 Assessment and Plan (1) Cognitive impairment: Status: Acute Plan 88F H vascular dementia, diabetes, hypertension, hyperlipidemia, peptic ulcer disease presented with mechanical fall complicated left foot fracture Mechanical fall with left foot fracture Weight-bearing with boot only PT pain control Diabetes Continue glipizide, Januvia, Jardiance, monitor POC Vascular dementia Stable, guardianship pending Peptic ulcer disease Continue omeprazole DVT prophylaxis with Lovenox Full Code reason for continued hospitalization: Awaiting guardianship and placement Quality Stroke Does the patient have a stroke diagnosis?: No VTE Prior VTE?: No VTE Risk Level:: Medical - moderate - high VTE Device Contraindication: Treatment Not Indicated VTE Drug Contraindication: N/A - Med Ordered
[2024-03-29] MEDS: glipiZIDE 10 MG TABLET PO ×2 (09:59→20:33)
[2024-03-29] MEDS: Empagliflozin 10 MG TABLET PO (09:59)
[2024-03-29] MEDS: SITagliptin Phosphate 100 MG TABLET PO (09:59)
[2024-03-29] MEDS: Aspirin Enteric Coated 81 MG TABLET.DR PO (09:59)
[2024-03-29 10:51] LABS: Glucose, Whole Blood 232 mg/dL (60-115)
[2024-03-29 11:21] VITALS: BP 102/59; PULSE 80; RESP 20; TEMP 36.4; O2SAT 98
[2024-03-29 16:00] VITALS: BP 115/58; PULSE 88; RESP 17; TEMP 36.6; O2SAT 92
[2024-03-29 16:56] LABS: Glucose, Whole Blood 179 mg/dL (60-115)
[2024-03-29] MEDS: Enoxaparin Sodium 40 MG/0.4 ML SYRINGE SUBCUT (19:29)
[2024-03-29 20:00] VITALS: BP 119/62; PULSE 97; RESP 16; TEMP 36.5; O2SAT 97
[2024-03-29] MEDS: Melatonin 3 MG TABLET PO (20:32)
[2024-03-29] MEDS: Atorvastatin Calcium 10 MG TABLET PO (20:33)
[2024-03-29 21:21] LABS: Glucose, Whole Blood 199 mg/dL (60-115)
[2024-03-30] VITALS: BP 117/59; PULSE 97; RESP 16; TEMP 36.2; O2SAT 99
[2024-03-30] MEDS: oxyCODONE HCl Immed Release 5 MG TABLET PO ×2 (03:08→20:53)
[2024-03-30 03:48] VITALS: BP 111/57; PULSE 91; RESP 16; TEMP 36; O2SAT 98
[2024-03-30] MEDS: Omeprazole 20 MG CAPSULE.DR PO (05:55)
[2024-03-30 07:02] LABS: Glucose, Whole Blood 140 mg/dL (60-115)
[2024-03-30 07:32] VITALS: BP 134/68; PULSE 87; RESP 18; TEMP 36.3; O2SAT 95
--- NOTE | 2024-03-30 09:47 | HO.PM.IMPN ---
Subjective Subjective Date of Service: 03/30/24 Interval History: no complaints Physical Exam Vital Signs: Vital Signs: Last Vital Signs Temp 97.3 F 03/30/24 07:32 Pulse 87 03/30/24 07:32 Resp 18 03/30/24 07:32 BP 134/68 03/30/24 07:32 Pulse Ox 95 03/30/24 07:32 O2 Del Method Room Air 03/30/24 07:32 BMI result Body Mass Index 24.5 General: AO X 3, no acute distress Resp: CTA bilateral, no accessory muscles used CVS: S1,S2,RRR GI: soft, non tender, non distended Neuro: motor grossly intact, alert Psych: appropriate affect, appropriate insight Objective Data Active Medications Acetaminophen (Acetaminophen 325 Mg Tablet) 650 mg PO Q4H PRN PRN Reason: headache or pain Last Admin: 03/26/24 21:42 Dose: 650 mg Documented By: OSMAR Amitriptyline HCl (Amitriptyline Hcl 25 Mg Tablet) 25 mg PO BEDTIME [facility] Last Admin: 03/29/24 20:42 Dose: Not Given Documented By: BETO Non-Admin Reason: Patient Refused Aspirin (Aspirin Enteric Coated 81 Mg Tablet.) 81 mg PO DAILY [facility] Last Admin: 03/29/24 09:59 Dose: 81 mg Documented By: BRISA Atorvastatin Calcium (Atorvastatin Calcium 10 Mg Tablet) 10 mg PO BEDTIME [facility] Last Admin: 03/29/24 20:33 Dose: 10 mg Documented By: BETO Empagliflozin (Empagliflozin 10 Mg Tablet) 10 mg PO DAILY [facility] Last Admin: 03/29/24 09:59 Dose: 10 mg Documented By: BRISA Enoxaparin Sodium (Enoxaparin Sodium 40 Mg/0.4 Ml Syringe) 40 mg SUBCUT Q24H [facility] Last Admin: 03/29/24 19:29 Dose: 40 mg Documented By: BRISA Glipizide (Glipizide 10 Mg Tablet) 10 mg PO BID [facility] Last Admin: 03/29/24 20:33 Dose: 10 mg Documented By: BETO Melatonin (Melatonin 3 Mg Tablet) 3 mg PO BEDTIME PRN PRN Reason: Insomnia Last Admin: 03/29/24 20:32 Dose: 3 mg Documented By: BETO Nitroglycerin (Nitroglycerin 0.4 Mg Tab.Subl) 0.4 mg SUBLINGUAL Q5M PRN PRN Reason: angina Omeprazole (Omeprazole 20 Mg Capsule.Dr) 20 mg PO DAILY@0630 [facility] Last Admin: 03/30/24 05:55 Dose: 20 mg Documented By: BETO Oxycodone HCl (Oxycodone Hcl Immed Release 5 Mg Tablet) 5 mg PO Q4H PRN PRN Reason: left leg pain Last Admin: 03/30/24 03:08 Dose: 5 mg Documented By: BETO Sitagliptin Phosphate (Sitagliptin Phosphate 100 Mg Tablet) 100 mg PO DAILY [facility] Last Admin: 03/29/24 09:59 Dose: 100 mg Documented By: BRISA Sodium Chloride (0.9 % Sodium Chloride Flush 3 Ml Syringe) 3 ml IVFLUSH QSHIFT [facility] Last Admin: 03/29/24 20:42 Dose: Not Given Documented By: BETO Non-Admin Reason: No Access Labs 03/24/24 16:45 Labs: Laboratory Results - last 24 hr 03/29/24 03/29/24 03/29/24 10:45 16:46 21:15 POC Glucose 232 H 179 H 199 H 03/30/24 06:51 POC Glucose 140 H Assessment and Plan (1) Cognitive impairment: Status: Acute Plan 88F PMH vascular dementia, diabetes, hypertension, hyperlipidemia, peptic ulcer disease presented with mechanical fall complicated left foot fracture Mechanical fall with left foot fracture Weight-bearing with boot only PT pain control Diabetes Continue glipizide, Januvia, Jardiance, monitor POC Vascular dementia Stable, guardianship pending Peptic ulcer disease Continue omeprazole DVT prophylaxis with Lovenox Full Code reason for continued hospitalization: Awaiting guardianship and placement Quality Stroke Does the patient have a stroke diagnosis?: No VTE Prior VTE?: No VTE Risk Level:: Medical - moderate - high VTE Device Contraindication: Treatment Not Indicated VTE Drug Contraindication: N/A - Med Ordered
[2024-03-30] MEDS: glipiZIDE 10 MG TABLET PO ×2 (09:50→20:53)
[2024-03-30] MEDS: Empagliflozin 10 MG TABLET PO (09:50)
[2024-03-30] MEDS: Aspirin Enteric Coated 81 MG TABLET.DR PO (09:50)
[2024-03-30] MEDS: SITagliptin Phosphate 100 MG TABLET PO (09:50)
[2024-03-30 10:55] LABS: Glucose, Whole Blood 163 mg/dL (60-115)
[2024-03-30 11:24] VITALS: BP 111/63; PULSE 80; RESP 20; TEMP 36.4; O2SAT 97
[2024-03-30 15:22] LABS: Glucose, Whole Blood 133 mg/dL (60-115)
[2024-03-30 15:30] VITALS: BP 113/56; PULSE 83; RESP 18; TEMP 36.8; O2SAT 96
[2024-03-30 19:55] VITALS: BP 135/61; PULSE 86; RESP 19; TEMP 36.7; O2SAT 97
[2024-03-30 20:15] LABS: Glucose, Whole Blood 167 mg/dL (60-115)
[2024-03-30] MEDS: Enoxaparin Sodium 40 MG/0.4 ML SYRINGE SUBCUT (20:52)
[2024-03-30] MEDS: Melatonin 3 MG TABLET PO (20:53)
[2024-03-30] MEDS: Atorvastatin Calcium 10 MG TABLET PO (20:54)
[2024-03-30] MEDS: Amitriptyline HCl 25 MG TABLET PO (20:54)
[2024-03-30] MEDS: Acetaminophen 325 MG TABLET 650 MG PO (22:38)
[2024-03-31] VITALS: BP 124/60; PULSE 95; RESP 16; TEMP 36.1; O2SAT 97
[2024-03-31] MEDS: Ketorolac Tromethamine 15 MG/ML VIAL IVPUSH (01:52)
[2024-03-31] MEDS: 0.9 % Sodium Chloride Flush 3 ML SYRINGE IVFLUSH ×4 (01:54→22:08)
[2024-03-31 04:00] VITALS: BP 134/68; PULSE 85; RESP 18; TEMP 36.3; O2SAT 99
[2024-03-31] MEDS: Omeprazole 20 MG CAPSULE.DR PO (05:47)
[2024-03-31 07:16] LABS: Glucose, Whole Blood 116 mg/dL (60-115)
[2024-03-31 07:37] VITALS: BP 131/63; PULSE 87; RESP 18; TEMP 36.4; O2SAT 97
[2024-03-31] MEDS: glipiZIDE 10 MG TABLET PO ×2 (10:21→22:08)
[2024-03-31] MEDS: Empagliflozin 10 MG TABLET PO (10:22)
[2024-03-31] MEDS: SITagliptin Phosphate 100 MG TABLET PO (10:22)
[2024-03-31] MEDS: Aspirin Enteric Coated 81 MG TABLET.DR PO (10:22)
[2024-03-31 10:50] LABS: Glucose, Whole Blood 183 mg/dL (60-115)
[2024-03-31 11:11] VITALS: BP 121/57; PULSE 83; RESP 18; TEMP 36.7; O2SAT 98
--- NOTE | 2024-03-31 12:40 | P.PNIM_ITS ---
Subjective Subjective Date of Service: 03/31/24 Interval History: Seen and evaluated this morning sitting comfortable in her bed no complaints Review of Systems Review of Systems: Yes all other systems are reviewed and are negative Physical Exam 2 Vital Signs: Vital Signs: Last Vital Signs Temp 98.1 F 03/31/24 11:11 Pulse 83 03/31/24 11:11 Resp 18 03/31/24 11:11 BP 121/57 L 03/31/24 11:11 Pulse Ox 98 03/31/24 11:11 O2 Del Method Room Air 03/31/24 11:11 BMI result Body Mass Index 24.5 Const: Other: Constitutional : interactive, not in distress Cardiovascular : no JVP, no lower extremity edema Respiratory : bilateral chest movement, not in resp distress Gastrointestinal: soft, lax, Non tender Skin : Warm, Dry Neurological : Alert Objective Data Active Medications Acetaminophen (Acetaminophen 325 Mg Tablet) 650 mg PO Q4H PRN PRN Reason: headache or pain Last Admin: 03/30/24 22:38 Dose: 650 mg Documented By: HILARIO Amitriptyline HCl (Amitriptyline Hcl 25 Mg Tablet) 25 mg PO BEDTIME [facility] Last Admin: 03/30/24 20:54 Dose: 25 mg Documented By: HILARIO Aspirin (Aspirin Enteric Coated 81 Mg Tablet.Dr) 81 mg PO DAILY [facility] Last Admin: 03/31/24 10:22 Dose: 81 mg Documented By: ALIDA Atorvastatin Calcium (Atorvastatin Calcium 10 Mg Tablet) 10 mg PO BEDTIME [facility] Last Admin: 03/30/24 20:54 Dose: 10 mg Documented By: HILARIO Empagliflozin (Empagliflozin 10 Mg Tablet) 10 mg PO DAILY [facility] Last Admin: 03/31/24 10:22 Dose: 10 mg Documented By: ALIDA Enoxaparin Sodium (Enoxaparin Sodium 40 Mg/0.4 Ml Syringe) 40 mg SUBCUT Q24H [facility] Last Admin: 03/30/24 20:52 Dose: 40 mg Documented By: HILARIO Glipizide (Glipizide 10 Mg Tablet) 10 mg PO BID [facility] Last Admin: 03/31/24 10:21 Dose: 10 mg Documented By: ALIDA Melatonin (Melatonin 3 Mg Tablet) 3 mg PO BEDTIME PRN PRN Reason: Insomnia Last Admin: 03/30/24 20:53 Dose: 3 mg Documented By: HILARIO Nitroglycerin (Nitroglycerin 0.4 Mg Tab.Subl) 0.4 mg SUBLINGUAL Q5M PRN PRN Reason: angina Omeprazole (Omeprazole 20 Mg Capsule.Dr) 20 mg PO DAILY@0630 [facility] Last Admin: 03/31/24 05:47 Dose: 20 mg Documented By: HILARIO Oxycodone HCl (Oxycodone Hcl Immed Release 5 Mg Tablet) 5 mg PO Q4H PRN PRN Reason: left leg pain Last Admin: 03/30/24 20:53 Dose: 5 mg Documented By: HILARIO Sitagliptin Phosphate (Sitagliptin Phosphate 100 Mg Tablet) 100 mg PO DAILY [facility] Last Admin: 03/31/24 10:22 Dose: 100 mg Documented By: ALIDA Sodium Chloride (0.9 % Sodium Chloride Flush 3 Ml Syringe) 3 ml IVFLUSH QSHIFT [facility] Last Admin: 03/31/24 10:21 Dose: 3 ml Documented By: ALIDA Labs 03/24/24 16:45 Labs: Laboratory Results - last 24 hr 03/30/24 03/30/24 03/31/24 15:06 20:09 07:06 POC Glucose 133 H 167 H 116 H 03/31/24 10:39 POC Glucose 183 H Assessment and Plan (1) Cognitive impairment: Status: Acute Plan 88F H vascular dementia, diabetes, hypertension, hyperlipidemia, peptic ulcer disease presented with mechanical fall complicated left foot fracture Mechanical fall with left foot fracture Weight-bearing with boot only PT pain control Diabetes Continue glipizide, Januvia, Jardiance, monitor POC Vascular dementia Stable, guardianship pending Peptic ulcer disease Continue omeprazole DVT prophylaxis with Lovenox Full Code reason for continued hospitalization: Awaiting guardianship and placement Quality Stroke Does the patient have a stroke diagnosis?: No VTE Prior VTE?: No VTE Risk Level:: Medical - moderate - high VTE Device Contraindication: Treatment Not Indicated VTE Drug Contraindication: N/A - Med Ordered
--- NOTE | 2024-03-31 14:46 | MHC.CM.PN ---
Addendum entered by Anai Wang 03/31/24 15:19: received return call from Gaston Holman, she requested face sheet with SS# be faxed to her, sent today. fax# [phone]. She intends to change pt.'s ins. so that we can refer for LTC. Original Note: Pt remains in acute care, awaiting guardian / financial changes for LTC placement. CM left voice mail message today for Gaston Holman, , newly appointed guardian.
[2024-03-31 15:47] VITALS: BP 146/65; PULSE 79; RESP 16; TEMP 36.1; O2SAT 97
[2024-03-31 16:25] LABS: Glucose, Whole Blood 108 mg/dL (60-115)
[2024-03-31] MEDS: Enoxaparin Sodium 40 MG/0.4 ML SYRINGE SUBCUT (18:49)
[2024-03-31 20:00] VITALS: BP 117/61; PULSE 57; RESP 19; TEMP 36.6; O2SAT 95
[2024-03-31 20:25] LABS: Glucose, Whole Blood 248 mg/dL (60-115)
[2024-03-31] MEDS: Acetaminophen 325 MG TABLET 650 MG PO (22:07)
[2024-03-31] MEDS: Atorvastatin Calcium 10 MG TABLET PO (22:08)
[2024-03-31] MEDS: Amitriptyline HCl 25 MG TABLET PO (22:08)
[2024-03-31] MEDS: Melatonin 3 MG TABLET PO (22:08)
[2024-04-01] VITALS: BP 118/55; PULSE 89; RESP 18; TEMP 36; O2SAT 95
[2024-04-01 04:00] VITALS: BP 120/62; PULSE 95; RESP 18; TEMP 36.4; O2SAT 98
[2024-04-01 07:29] LABS: Glucose, Whole Blood 113 mg/dL (60-115)
[2024-04-01 07:59] VITALS: BP 135/75; PULSE 90; RESP 20; TEMP 36.6; O2SAT 98
--- NOTE | 2024-04-01 08:49 | HO.PM.IMPN ---
Subjective Subjective Date of Service: 04/01/24 Interval History: Seen and evaluated this morning laying comfortable in her bed no complaints Review of Systems Review of Systems: Yes all other systems are reviewed and are negative Physical Exam Vital Signs: Vital Signs: Last Vital Signs Temp 97.9 F 04/01/24 07:59 Pulse 90 04/01/24 07:59 Resp 20 04/01/24 07:59 BP 135/75 04/01/24 07:59 Pulse Ox 98 04/01/24 07:59 O2 Del Method Room Air 04/01/24 07:59 BMI result Body Mass Index 24.5 Const: Other: Constitutional : interactive, not in distress Cardiovascular : no JVP, no lower extremity edema Respiratory : bilateral chest movement, not in resp distress Gastrointestinal: soft, lax, Non tender Skin : Warm, Dry Neurological : Alert Objective Data Active Medications Acetaminophen (Acetaminophen 325 Mg Tablet) 650 mg PO Q4H PRN PRN Reason: headache or pain Last Admin: 03/31/24 22:07 Dose: 650 mg Documented By: IHLARIO Amitriptyline HCl (Amitriptyline Hcl 25 Mg Tablet) 25 mg PO BEDTIME [facility] Last Admin: 03/31/24 22:08 Dose: 25 mg Documented By: HILARIO Aspirin (Aspirin Enteric Coated 81 Mg Tablet.Dr) 81 mg PO DAILY [facility] Last Admin: 03/31/24 10:22 Dose: 81 mg Documented By: ALIDA Atorvastatin Calcium (Atorvastatin Calcium 10 Mg Tablet) 10 mg PO BEDTIME [facility] Last Admin: 03/31/24 22:08 Dose: 10 mg Documented By: HILARIO Empagliflozin (Empagliflozin 10 Mg Tablet) 10 mg PO DAILY [facility] Last Admin: 03/31/24 10:22 Dose: 10 mg Documented By: ALIDA Enoxaparin Sodium (Enoxaparin Sodium 40 Mg/0.4 Ml Syringe) 40 mg SUBCUT Q24H [facility] Last Admin: 03/31/24 18:49 Dose: 40 mg Documented By: ALIDA Glipizide (Glipizide 10 Mg Tablet) 10 mg PO BID [facility] Last Admin: 03/31/24 22:08 Dose: 10 mg Documented By: HILARIO Melatonin (Melatonin 3 Mg Tablet) 3 mg PO BEDTIME PRN PRN Reason: Insomnia Last Admin: 03/31/24 22:08 Dose: 3 mg Documented By: HILARIO Nitroglycerin (Nitroglycerin 0.4 Mg Tab.Subl) 0.4 mg SUBLINGUAL Q5M PRN PRN Reason: angina Omeprazole (Omeprazole 20 Mg Capsule.Dr) 20 mg PO DAILY@0630 [facility] Last Admin: 03/31/24 05:47 Dose: 20 mg Documented By: HILARIO Sitagliptin Phosphate (Sitagliptin Phosphate 100 Mg Tablet) 100 mg PO DAILY [facility] Last Admin: 03/31/24 10:22 Dose: 100 mg Documented By: ALIDA Sodium Chloride (0.9 % Sodium Chloride Flush 3 Ml Syringe) 3 ml IVFLUSH QSHIFT [facility] Last Admin: 03/31/24 22:08 Dose: 3 ml Documented By: HILARIO Labs 03/24/24 16:45 Labs: Laboratory Results - last 24 hr 03/31/24 03/31/24 03/31/24 10:39 16:17 20:17 POC Glucose 183 H 108 248 H 04/01/24 07:18 POC Glucose 113 Assessment and Plan (1) Cognitive impairment: Status: Acute (2) Fall: Status: Acute Plan 88F PMH vascular dementia, diabetes, hypertension, hyperlipidemia, peptic ulcer disease presented with mechanical fall complicated left foot fracture Mechanical fall with left foot fracture Weight-bearing with boot only PT pain control Diabetes Continue glipizide, Januvia, Jardiance, monitor POC Vascular dementia Stable, guardianship pending Peptic ulcer disease Continue omeprazole DVT prophylaxis with Lovenox Full Code reason for continued hospitalization: Awaiting guardianship and placement Quality Stroke Does the patient have a stroke diagnosis?: No VTE Prior VTE?: No VTE Risk Level:: Medical - moderate - high VTE Device Contraindication: Treatment Not Indicated VTE Drug Contraindication: N/A - Med Ordered
[2024-04-01] MEDS: Omeprazole 20 MG CAPSULE.DR PO (08:58)
[2024-04-01] MEDS: Empagliflozin 10 MG TABLET PO (08:58)
[2024-04-01] MEDS: glipiZIDE 10 MG TABLET PO ×2 (08:58→21:56)
[2024-04-01] MEDS: Aspirin Enteric Coated 81 MG TABLET.DR PO (08:59)
[2024-04-01] MEDS: 0.9 % Sodium Chloride Flush 3 ML SYRINGE IVFLUSH ×2 (08:59→17:38)
[2024-04-01] MEDS: SITagliptin Phosphate 100 MG TABLET PO (08:59)
[2024-04-01 11:18] LABS: Glucose, Whole Blood 137 mg/dL (60-115)
[2024-04-01 11:42] VITALS: BP 144/67; PULSE 82; RESP 20; TEMP 36.6; O2SAT 100
[2024-04-01 15:54] LABS: Glucose, Whole Blood 193 mg/dL (60-115)
[2024-04-01 16:00] VITALS: BP 126/58; PULSE 92; RESP 20; TEMP 36.5; O2SAT 97
[2024-04-01] MEDS: Enoxaparin Sodium 40 MG/0.4 ML SYRINGE SUBCUT (19:50)
[2024-04-01 20:00] VITALS: BP 131/69; PULSE 90; RESP 20; TEMP 36.3; O2SAT 98
[2024-04-01 21:37] LABS: Glucose, Whole Blood 187 mg/dL (60-115)
[2024-04-01] MEDS: Melatonin 3 MG TABLET PO (21:55)
[2024-04-01] MEDS: Atorvastatin Calcium 10 MG TABLET PO (21:56)
[2024-04-02] VITALS: BP 120/63; PULSE 71; RESP 18; TEMP 36.4; O2SAT 96
[2024-04-02 03:54] VITALS: PULSE 92; RESP 18; TEMP 36.4; O2SAT 95
[2024-04-02] MEDS: Omeprazole 20 MG CAPSULE.DR PO (06:08)
[2024-04-02 07:51] VITALS: BP 113/57; PULSE 85; RESP 20; TEMP 36.3; O2SAT 96
[2024-04-02 08:04] LABS: Glucose, Whole Blood 193 mg/dL (60-115)
[2024-04-02] MEDS: glipiZIDE 10 MG TABLET PO ×2 (08:12→20:01)
[2024-04-02] MEDS: Aspirin Enteric Coated 81 MG TABLET.DR PO (08:12)
[2024-04-02] MEDS: Empagliflozin 10 MG TABLET PO (08:12)
[2024-04-02] MEDS: SITagliptin Phosphate 100 MG TABLET PO (08:12)
[2024-04-02] MEDS: 0.9 % Sodium Chloride Flush 3 ML SYRINGE IVFLUSH ×3 (08:12→20:01)
[2024-04-02] MEDS: Butalb/Acetamin/Caff 50/325/40 TABLET 2 TAB PO (10:40)
[2024-04-02 11:30] VITALS: BP 109/62; PULSE 84; RESP 20; TEMP 36.7; O2SAT 96
[2024-04-02 12:23] LABS: Glucose, Whole Blood 128 mg/dL (60-115)
--- NOTE | 2024-04-02 13:14 | HO.PM.IMPN ---
Subjective Subjective Date of Service: 04/02/24 Interval History: Seen and evaluated this morning laying comfortable in her bed no complaints Physical Exam Vital Signs: Vital Signs: Last Vital Signs Temp 98.0 F 04/02/24 11:30 Pulse 84 04/02/24 11:30 Resp 20 04/02/24 11:30 BP 109/62 04/02/24 11:30 Pulse Ox 96 04/02/24 11:30 O2 Del Method Room Air 04/02/24 11:30 BMI result Body Mass Index 24.5 Const: Other: Constitutional : interactive, not in distress Cardiovascular : no JVP, no lower extremity edema Respiratory : bilateral chest movement, not in resp distress Gastrointestinal: soft, lax, Non tender Skin : Warm, Dry Neurological : Alert Objective Data Active Medications Acetaminophen (Acetaminophen 325 Mg Tablet) 650 mg PO Q4H PRN PRN Reason: headache or pain Last Admin: 03/31/24 22:07 Dose: 650 mg Documented By: HILARIO Amitriptyline HCl (Amitriptyline Hcl 25 Mg Tablet) 25 mg PO BEDTIME [facility] Last Admin: 04/01/24 21:58 Dose: Not Given Documented By: SHAISTA Non-Admin Reason: Patient Refused Aspirin (Aspirin Enteric Coated 81 Mg Tablet.) 81 mg PO DAILY [facility] Last Admin: 04/02/24 08:12 Dose: 81 mg Documented By: CEDRICK Atorvastatin Calcium (Atorvastatin Calcium 10 Mg Tablet) 10 mg PO BEDTIME [facility] Last Admin: 04/01/24 21:56 Dose: 10 mg Documented By: SHAISTA Empagliflozin (Empagliflozin 10 Mg Tablet) 10 mg PO DAILY [facility] Last Admin: 04/02/24 08:12 Dose: 10 mg Documented By: CEDRICK Enoxaparin Sodium (Enoxaparin Sodium 40 Mg/0.4 Ml Syringe) 40 mg SUBCUT Q24H [facility] Last Admin: 04/01/24 19:50 Dose: 40 mg Documented By: SHAISTA Glipizide (Glipizide 10 Mg Tablet) 10 mg PO BID [facility] Last Admin: 04/02/24 08:12 Dose: 10 mg Documented By: CEDRICK Melatonin (Melatonin 3 Mg Tablet) 3 mg PO BEDTIME PRN PRN Reason: Insomnia Last Admin: 04/01/24 21:55 Dose: 3 mg Documented By: SHAISTA Nitroglycerin (Nitroglycerin 0.4 Mg Tab.Subl) 0.4 mg SUBLINGUAL Q5M PRN PRN Reason: angina Omeprazole (Omeprazole 20 Mg Capsule.Dr) 20 mg PO DAILY@0630 [facility] Last Admin: 04/02/24 06:08 Dose: 20 mg Documented By: SHAISTA Sitagliptin Phosphate (Sitagliptin Phosphate 100 Mg Tablet) 100 mg PO DAILY [facility] Last Admin: 04/02/24 08:12 Dose: 100 mg Documented By: CEDRICK Sodium Chloride (0.9 % Sodium Chloride Flush 3 Ml Syringe) 3 ml IVFLUSH QSHIFT [facility] Last Admin: 04/02/24 08:12 Dose: 3 ml Documented By: CEDRICK Labs 03/24/24 16:45 Labs: Laboratory Results - last 24 hr 04/01/24 04/01/24 04/02/24 15:46 21:34 07:50 POC Glucose 193 H 187 H 193 H 04/02/24 11:59 POC Glucose 128 H Assessment and Plan (1) Fall: Status: Acute (2) Cognitive impairment: Status: Acute Plan 88F H vascular dementia, diabetes, hypertension, hyperlipidemia, peptic ulcer disease presented with mechanical fall complicated left foot fracture Mechanical fall with left foot fracture Weight-bearing with boot only PT pain control Diabetes Continue glipizide, Januvia, Jardiance, monitor POC Vascular dementia w cognitive impairment Stable, guardianship pending Peptic ulcer disease Continue omeprazole DVT prophylaxis with Lovenox Full Code reason for continued hospitalization: Awaiting guardianship and placement Quality Stroke Does the patient have a stroke diagnosis?: No VTE Prior VTE?: No VTE Risk Level:: Medical - moderate - high VTE Device Contraindication: Treatment Not Indicated VTE Drug Contraindication: N/A - Med Ordered
--- NOTE | 2024-04-02 14:52 | MHC.CM.PN ---
EMR reviewed and per MD rounds, pt remains medically cleared for discharge, but unable to due to awaiting insurance change so pt can go to LTC.
[2024-04-02 16:00] VITALS: BP 120/69; PULSE 88; RESP 19; TEMP 36.9; O2SAT 98
[2024-04-02 16:54] LABS: Glucose, Whole Blood 131 mg/dL (60-115)
[2024-04-02] MEDS: Enoxaparin Sodium 40 MG/0.4 ML SYRINGE SUBCUT (17:47)
[2024-04-02 20:00] VITALS: BP 102/68; PULSE 94; TEMP 36.9; O2SAT 98
[2024-04-02] MEDS: Atorvastatin Calcium 10 MG TABLET PO (20:01)
[2024-04-02 21:20] LABS: Glucose, Whole Blood 223 mg/dL (60-115)
[2024-04-03] VITALS (7 sets, daily range): BP systolic 104–136; BP diastolic 60–75; PULSE 86–97; RESP 15–20; TEMP 36.3–37.1; O2SAT 95–100
[2024-04-03] MEDS: Omeprazole 20 MG CAPSULE.DR PO (05:17)
[2024-04-03 08:08] LABS: Glucose, Whole Blood 79 mg/dL (60-115)
[2024-04-03] MEDS: Empagliflozin 10 MG TABLET PO (10:47)
[2024-04-03] MEDS: SITagliptin Phosphate 100 MG TABLET PO (10:47)
[2024-04-03] MEDS: Aspirin Enteric Coated 81 MG TABLET.DR PO (10:48)
[2024-04-03] MEDS: glipiZIDE 10 MG TABLET PO ×2 (10:48→20:14)
[2024-04-03] MEDS: 0.9 % Sodium Chloride Flush 3 ML SYRINGE IVFLUSH ×3 (10:48→20:14)
[2024-04-03 11:04] LABS: Glucose, Whole Blood 319 mg/dL (60-115)
--- NOTE | 2024-04-03 15:10 | HO.PM.IMPN ---
Subjective Subjective Date of Service: 04/03/24 Interval History: Seen and evaluated this morning sitting comfortably talking on the phone no complaints Physical Exam Vital Signs: Vital Signs: Last Vital Signs Temp 97.9 F 04/03/24 11:35 Pulse 89 04/03/24 11:35 Resp 20 04/03/24 11:35 BP 104/60 04/03/24 11:35 Pulse Ox 98 04/03/24 11:35 O2 Del Method Room Air 04/03/24 11:35 BMI result Body Mass Index 24.5 Const: Other: Constitutional : interactive, not in distress Cardiovascular : no JVP, no lower extremity edema Respiratory : bilateral chest movement, not in resp distress Gastrointestinal: soft, lax, Non tender Skin : Warm, Dry Neurological : Alert, no focal deficit Objective Data Active Medications Acetaminophen (Acetaminophen 325 Mg Tablet) 650 mg PO Q4H PRN PRN Reason: headache or pain Last Admin: 03/31/24 22:07 Dose: 650 mg Documented By: HILARIO Amitriptyline HCl (Amitriptyline Hcl 25 Mg Tablet) 25 mg PO BEDTIME COUNTS [facility]CLUDE 234 BEDS AT THE [facility] Last Admin: 04/02/24 20:03 Dose: Not Given Documented By: MARIO Non-Admin Reason: Patient Refused Aspirin (Aspirin Enteric Coated 81 Mg Tablet.) 81 mg PO DAILY COUNTS INCLUDE 234 BEDS AT THE [facility] Last Admin: 04/03/24 10:48 Dose: 81 mg Documented By: ALEXA Atorvastatin Calcium (Atorvastatin Calcium 10 Mg Tablet) 10 mg PO BEDTIME COUNTS INCLUDE 234 BEDS AT THE [facility] Last Admin: 04/02/24 20:01 Dose: 10 mg Documented By: MARIO Empagliflozin (Empagliflozin 10 Mg Tablet) 10 mg PO DAILY COUNTS INCLUDE 234 BEDS AT THE [facility] Last Admin: 04/03/24 10:47 Dose: 10 mg Documented By: ALEXA Enoxaparin Sodium (Enoxaparin Sodium 40 Mg/0.4 Ml Syringe) 40 mg SUBCUT Q24H COUNTS INCLUDE 234 BEDS AT THE [facility] Last Admin: 04/02/24 17:47 Dose: 40 mg Documented By: CEDRICK Glipizide (Glipizide 10 Mg Tablet) 10 mg PO BID COUNTS INCLUDE 234 BEDS AT THE [facility] Last Admin: 04/03/24 10:48 Dose: 10 mg Documented By: ALEXA Melatonin (Melatonin 3 Mg Tablet) 3 mg PO BEDTIME PRN PRN Reason: Insomnia Last Admin: 04/01/24 21:55 Dose: 3 mg Documented By: SHAISTA Nitroglycerin (Nitroglycerin 0.4 Mg Tab.Subl) 0.4 mg SUBLINGUAL Q5M PRN PRN Reason: angina Omeprazole (Omeprazole 20 Mg Capsule.Dr) 20 mg PO DAILY@0630 COUNTS INCLUDE 234 BEDS AT THE [facility] Last Admin: 04/03/24 05:17 Dose: 20 mg Documented By: MARIO Sitagliptin Phosphate (Sitagliptin Phosphate 100 Mg Tablet) 100 mg PO DAILY COUNTS INCLUDE 234 BEDS AT THE [facility] Last Admin: 04/03/24 10:47 Dose: 100 mg Documented By: ALEXA Sodium Chloride (0.9 % Sodium Chloride Flush 3 Ml Syringe) 3 ml IVFLUSH QSHIFT COUNTS INCLUDE 234 BEDS AT THE [facility] Last Admin: 04/03/24 10:48 Dose: 3 ml Documented By: ALEXA Labs 03/24/24 16:45 Labs: Laboratory Results - last 24 hr 04/02/24 04/02/24 04/03/24 16:44 21:16 07:47 POC Glucose 131 H 223 H 79 04/03/24 10:57 POC Glucose 319 H Assessment and Plan (1) Cognitive impairment: Status: Acute (2) Fall: Status: Acute Plan 88F [facility] vascular dementia, diabetes, hypertension, hyperlipidemia, peptic ulcer disease presented with mechanical fall complicated left foot fracture Mechanical fall with left foot fracture Weight-bearing with boot only PT rec SNF pain management Diabetes Continue glipizide, Januvia, Jardiance, monitor POC Vascular dementia w cognitive impairment Stable, guardianship pending Peptic ulcer disease Continue omeprazole DVT prophylaxis with Lovenox Full Code reason for continued hospitalization: Awaiting guardianship and placement Quality Stroke Does the patient have a stroke diagnosis?: No VTE Prior VTE?: No VTE Risk Level:: Medical - moderate - high VTE Device Contraindication: Treatment Not Indicated VTE Drug Contraindication: N/A - Med Ordered
[2024-04-03 17:06] LABS: Glucose, Whole Blood 269 mg/dL (60-115)
[2024-04-03] MEDS: Enoxaparin Sodium 40 MG/0.4 ML SYRINGE SUBCUT (17:26)
[2024-04-03] MEDS: Amitriptyline HCl 25 MG TABLET PO (20:14)
[2024-04-03] MEDS: Atorvastatin Calcium 10 MG TABLET PO (20:14)
[2024-04-03 20:38] LABS: Glucose, Whole Blood 200 mg/dL (60-115)
[2024-04-04 03:56] VITALS: BP 126/67; PULSE 96; RESP 20; TEMP 36.4; O2SAT 99
[2024-04-04] MEDS: Omeprazole 20 MG CAPSULE.DR PO (05:17)
[2024-04-04 07:24] LABS: Glucose, Whole Blood 96 mg/dL (60-115)
[2024-04-04 08:00] VITALS: BP 122/67; PULSE 96; RESP 20; TEMP 36.6; O2SAT 96
[2024-04-04] MEDS: traMADoL HCL 50 MG TABLET 25 MG PO ×2 (09:53→20:22)
[2024-04-04] MEDS: Aspirin Enteric Coated 81 MG TABLET.DR PO (09:53)
[2024-04-04] MEDS: Empagliflozin 10 MG TABLET PO (09:54)
[2024-04-04] MEDS: 0.9 % Sodium Chloride Flush 3 ML SYRINGE IVFLUSH ×3 (09:54→20:23)
[2024-04-04] MEDS: glipiZIDE 10 MG TABLET PO ×2 (09:54→20:23)
[2024-04-04] MEDS: SITagliptin Phosphate 100 MG TABLET PO (09:54)
[2024-04-04 10:51] LABS: Glucose, Whole Blood 239 mg/dL (60-115)
[2024-04-04 11:21] VITALS: BP 110/69; PULSE 88; RESP 20; TEMP 36.7; O2SAT 98
--- NOTE | 2024-04-04 14:25 | P.PNIM_ITS ---
Subjective Subjective Date of Service: 04/04/24 Interval History: Seen and evaluated this morning was sleeping comfortably upon evaluation no complaints Review of Systems Review of Systems: Yes all other systems are reviewed and are negative Physical Exam 2 Vital Signs: Vital Signs: Last Vital Signs Temp 98.0 F 04/04/24 11:21 Pulse 88 04/04/24 11:21 Resp 20 04/04/24 11:21 BP 110/69 04/04/24 11:21 Pulse Ox 98 04/04/24 11:21 O2 Del Method Room Air 04/04/24 11:21 BMI result Body Mass Index 24.5 Const: Other: Constitutional : interactive, not in distress Cardiovascular : no JVP, no lower extremity edema Respiratory : bilateral chest movement, not in resp distress Gastrointestinal: soft, lax, Non tender Skin : Warm, Dry Neurological : Alert, no focal deficit Objective Data Active Medications Acetaminophen (Acetaminophen 325 Mg Tablet) 650 mg PO Q4H PRN PRN Reason: headache or pain Last Admin: 03/31/24 22:07 Dose: 650 mg Documented By: HILARIO Amitriptyline HCl (Amitriptyline Hcl 25 Mg Tablet) 25 mg PO BEDTIME [facility] Last Admin: 04/03/24 20:14 Dose: 25 mg Documented By: MARIO Aspirin (Aspirin Enteric Coated 81 Mg Tablet.) 81 mg PO DAILY [facility] Last Admin: 04/04/24 09:53 Dose: 81 mg Documented By: ALEXA Atorvastatin Calcium (Atorvastatin Calcium 10 Mg Tablet) 10 mg PO BEDTIME [facility] Last Admin: 04/03/24 20:14 Dose: 10 mg Documented By: MARIO Empagliflozin (Empagliflozin 10 Mg Tablet) 10 mg PO DAILY [facility] Last Admin: 04/04/24 09:54 Dose: 10 mg Documented By: ALEXA Enoxaparin Sodium (Enoxaparin Sodium 40 Mg/0.4 Ml Syringe) 40 mg SUBCUT Q24H [facility] Last Admin: 04/03/24 17:26 Dose: 40 mg Documented By: ALEXA Glipizide (Glipizide 10 Mg Tablet) 10 mg PO BID [facility] Last Admin: 04/04/24 09:54 Dose: 10 mg Documented By: ALEXA Melatonin (Melatonin 3 Mg Tablet) 3 mg PO BEDTIME PRN PRN Reason: Insomnia Last Admin: 04/01/24 21:55 Dose: 3 mg Documented By: SHAISTA Nitroglycerin (Nitroglycerin 0.4 Mg Tab.Subl) 0.4 mg SUBLINGUAL Q5M PRN PRN Reason: angina Omeprazole (Omeprazole 20 Mg Capsule.Dr) 20 mg PO DAILY@0630 [facility] Last Admin: 04/04/24 05:17 Dose: 20 mg Documented By: MARIO Sitagliptin Phosphate (Sitagliptin Phosphate 100 Mg Tablet) 100 mg PO DAILY [facility] Last Admin: 04/04/24 09:54 Dose: 100 mg Documented By: ALEXA Sodium Chloride (0.9 % Sodium Chloride Flush 3 Ml Syringe) 3 ml IVFLUSH QSHIFT [facility] Last Admin: 04/04/24 09:54 Dose: 3 ml Documented By: ALEXA Tramadol HCl (Tramadol Hcl 50 Mg Tablet) 25 mg PO Q6H PRN PRN Reason: Pain, Severe (Pain Scale 7-10) Last Admin: 04/04/24 09:53 Dose: 25 mg Documented By: ALEXA Labs 03/24/24 16:45 Labs: Laboratory Results - last 24 hr 04/03/24 04/03/24 04/04/24 16:59 20:32 07:21 POC Glucose 269 H 200 H 96 04/04/24 10:47 POC Glucose 239 H Assessment and Plan (1) Cognitive impairment: Status: Acute Plan 88F H vascular dementia, diabetes, hypertension, hyperlipidemia, peptic ulcer disease presented with mechanical fall complicated left foot fracture Mechanical fall with left foot fracture Weight-bearing with boot only PT rec SNF pain management w Tramadol prn, tylenol Diabetes Continue glipizide, Januvia, Jardiance, monitor POC Vascular dementia w cognitive impairment Stable, guardianship pending Peptic ulcer disease Continue omeprazole DVT prophylaxis with Lovenox Full Code reason for continued hospitalization: Awaiting guardianship and placement Quality Stroke Does the patient have a stroke diagnosis?: No VTE Prior VTE?: No VTE Risk Level:: Medical - moderate - high VTE Device Contraindication: Treatment Not Indicated VTE Drug Contraindication: N/A - Med Ordered
[2024-04-04 16:00] VITALS: BP 110/63; PULSE 89; RESP 16; TEMP 36.6; O2SAT 98
[2024-04-04] MEDS: Enoxaparin Sodium 40 MG/0.4 ML SYRINGE SUBCUT (17:26)
[2024-04-04 19:20] LABS: Glucose, Whole Blood 228 mg/dL (60-115)
[2024-04-04 19:52] VITALS: BP 111/64; PULSE 92; RESP 20; TEMP 36.8; O2SAT 98
[2024-04-04 20:20] LABS: Glucose, Whole Blood 198 mg/dL (60-115)
[2024-04-04] MEDS: Atorvastatin Calcium 10 MG TABLET PO (20:23)
[2024-04-04 23:33] VITALS: BP 118/58; PULSE 90; RESP 20; TEMP 36.6; O2SAT 98
[2024-04-05 07:59] VITALS: BP 150/70; PULSE 83; RESP 18; TEMP 36.5; O2SAT 97
[2024-04-05 07:59] LABS: Glucose, Whole Blood 85 mg/dL (60-115)
[2024-04-05] MEDS: glipiZIDE 10 MG TABLET PO ×2 (08:46→20:38)
[2024-04-05] MEDS: Empagliflozin 10 MG TABLET PO (08:47)
[2024-04-05] MEDS: 0.9 % Sodium Chloride Flush 3 ML SYRINGE IVFLUSH ×2 (08:47→20:42)
[2024-04-05] MEDS: SITagliptin Phosphate 100 MG TABLET PO (08:47)
[2024-04-05] MEDS: Aspirin Enteric Coated 81 MG TABLET.DR PO (08:47)
[2024-04-05] MEDS: traMADoL HCL 50 MG TABLET 25 MG PO ×2 (08:48→20:39)
[2024-04-05] MEDS: Butalb/Acetamin/Caff 50/325/40 TABLET 2 TAB PO (10:56)
[2024-04-05] MEDS: Fluticasone Propionate Nasal 16 GM SPRAY 1 SPRAY NOSTRIL-B ×2 (10:56→20:40)
--- NOTE | 2024-04-05 11:18 | HO.PM.IMPN ---
Subjective Subjective Date of Service: 04/05/24 Interval History: Seen and evaluated this morning alert and interactive no complaints Review of Systems Review of Systems: Yes all other systems are reviewed and are negative Physical Exam Vital Signs: Vital Signs: Last Vital Signs Temp 97.7 F 04/05/24 07:59 Pulse 83 04/05/24 07:59 Resp 18 04/05/24 07:59 BP 150/70 H 04/05/24 07:59 Pulse Ox 97 04/05/24 07:59 O2 Del Method Room Air 04/05/24 07:59 BMI result Body Mass Index 24.5 Const: Other: Constitutional : interactive, not in distress Cardiovascular : no JVP, no lower extremity edema Respiratory : bilateral chest movement, not in resp distress Gastrointestinal: soft, lax, Non tender Skin : Warm, Dry Neurological : Alert, no focal deficit Objective Data Active Medications Acetaminophen (Acetaminophen 325 Mg Tablet) 650 mg PO Q4H PRN PRN Reason: headache or pain Last Admin: 03/31/24 22:07 Dose: 650 mg Documented By: HILARIO Acetaminophen/Butalbital/Caffeine (Butalb/Acetamin/Caff 50/325/40 Tablet) 1 tab PO Q4H PRN PRN Reason: Headache Amitriptyline HCl (Amitriptyline Hcl 25 Mg Tablet) 25 mg PO BEDTIME [facility] Last Admin: 04/04/24 20:26 Dose: Not Given Documented By: PATY Non-Admin Reason: Patient Refused Aspirin (Aspirin Enteric Coated 81 Mg Tablet.) 81 mg PO DAILY [facility] Last Admin: 04/05/24 08:47 Dose: 81 mg Documented By: CEDRICK Atorvastatin Calcium (Atorvastatin Calcium 10 Mg Tablet) 10 mg PO BEDTIME [facility] Last Admin: 04/04/24 20:23 Dose: 10 mg Documented By: PATY Empagliflozin (Empagliflozin 10 Mg Tablet) 10 mg PO DAILY [facility] Last Admin: 04/05/24 08:47 Dose: 10 mg Documented By: CEDRICK Enoxaparin Sodium (Enoxaparin Sodium 40 Mg/0.4 Ml Syringe) 40 mg SUBCUT Q24H [facility] Last Admin: 04/04/24 17:26 Dose: 40 mg Documented By: CARYN Fluticasone Propionate (Fluticasone Propionate Nasal 16 Gm [place]) 1 spray NOSTRIL-B BID [facility] Last Admin: 04/05/24 10:56 Dose: 1 spray Documented By: CEDRICK Glipizide (Glipizide 10 Mg Tablet) 10 mg PO BID [facility] Last Admin: 04/05/24 08:46 Dose: 10 mg Documented By: CEDRICK Melatonin (Melatonin 3 Mg Tablet) 3 mg PO BEDTIME PRN PRN Reason: Insomnia Last Admin: 04/01/24 21:55 Dose: 3 mg Documented By: SHAISTA Nitroglycerin (Nitroglycerin 0.4 Mg Tab.Subl) 0.4 mg SUBLINGUAL Q5M PRN PRN Reason: angina Omeprazole (Omeprazole 20 Mg Capsule.Dr) 20 mg PO DAILY@629 [facility] Last Admin: 04/05/24 06:44 Dose: Not Given Documented By: PATY Non-Admin Reason: Patient Asleep Sitagliptin Phosphate (Sitagliptin Phosphate 100 Mg Tablet) 100 mg PO DAILY [facility] Last Admin: 04/05/24 08:47 Dose: 100 mg Documented By: CEDRICK Sodium Chloride (0.9 % Sodium Chloride Flush 3 Ml Syringe) 3 ml IVFLUSH QSHIFT [facility] Last Admin: 04/05/24 08:47 Dose: 3 ml Documented By: CEDRICK Tramadol HCl (Tramadol Hcl 50 Mg Tablet) 25 mg PO Q6H PRN PRN Reason: Pain, Severe (Pain Scale 7-10) Last Admin: 04/05/24 08:48 Dose: 25 mg Documented By: CEDRICK Labs 03/24/24 16:45 Labs: Laboratory Results - last 24 hr 04/04/24 04/04/24 04/05/24 19:16 20:09 07:46 POC Glucose 228 H 198 H 85 Assessment and Plan (1) Cognitive impairment: Status: Acute (2) Fall: Status: Acute Plan 88F [facility] vascular dementia, diabetes, hypertension, hyperlipidemia, peptic ulcer disease presented with mechanical fall complicated left foot fracture Mechanical fall with left foot fracture Weight-bearing with boot only PT rec SNF pain management w Tramadol prn, tylenol Headach PRN Fiorecit Diabetes Continue glipizide, Januvia, Jardiance, monitor POC Vascular dementia w cognitive impairment Stable, guardianship pending Peptic ulcer disease Continue omeprazole DVT prophylaxis with Lovenox Full Code reason for continued hospitalization: Awaiting guardianship and placement Quality Stroke Does the patient have a stroke diagnosis?: No VTE Prior VTE?: No VTE Risk Level:: Medical - moderate - high VTE Device Contraindication: Treatment Not Indicated VTE Drug Contraindication: N/A - Med Ordered
[2024-04-05 11:44] LABS: Glucose, Whole Blood 222 mg/dL (60-115)
[2024-04-05 12:31] VITALS: BP 108/57; PULSE 82; RESP 18; TEMP 36.8; O2SAT 95
--- NOTE | 2024-04-05 12:53 | MHC.CM.PN ---
PT AWAITING LTC PLACEMENT PTS LEGAL GUARDIAN CURRENTLY WORKING ON GETTING PT THE APPROPRIATE INSURANCE FOR PLACMENT
[2024-04-05] MEDS: Lactulose 20 GM/30 ML SOLUTION PO (13:24)
[2024-04-05 16:00] VITALS: BP 125/60; PULSE 86; RESP 18; TEMP 36.9; O2SAT 99
[2024-04-05 17:05] LABS: Glucose, Whole Blood 160 mg/dL (60-115)
[2024-04-05] MEDS: Enoxaparin Sodium 40 MG/0.4 ML SYRINGE SUBCUT (18:16)
[2024-04-05] MEDS: Atorvastatin Calcium 10 MG TABLET PO (20:39)
[2024-04-06] VITALS: BP 146/72; PULSE 87; RESP 20; TEMP 36.8; O2SAT 98
[2024-04-06 07:32] VITALS: BP 144/69; PULSE 77; RESP 20; TEMP 36.2; O2SAT 99
[2024-04-06 07:32] LABS: Glucose, Whole Blood 214 mg/dL (60-115)
[2024-04-06] MEDS: Empagliflozin 10 MG TABLET PO (07:48)
[2024-04-06] MEDS: SITagliptin Phosphate 100 MG TABLET PO (07:48)
[2024-04-06] MEDS: Omeprazole 20 MG CAPSULE.DR PO (07:48)
[2024-04-06] MEDS: glipiZIDE 10 MG TABLET PO ×2 (07:48→20:05)
[2024-04-06] MEDS: Lactulose 20 GM/30 ML SOLUTION PO (07:48)
[2024-04-06] MEDS: 0.9 % Sodium Chloride Flush 3 ML SYRINGE IVFLUSH ×2 (07:48→20:06)
[2024-04-06] MEDS: Aspirin Enteric Coated 81 MG TABLET.DR PO (07:48)
[2024-04-06] MEDS: Fluticasone Propionate Nasal 16 GM SPRAY 1 SPRAY NOSTRIL-B ×2 (07:49→20:05)
[2024-04-06 07:53] LABS: Glucose, Whole Blood 87 mg/dL (60-115)
[2024-04-06] MEDS: Butalb/Acetamin/Caff 50/325/40 TABLET 1 TAB PO (07:56)
[2024-04-06 11:18] LABS: Glucose, Whole Blood 126 mg/dL (60-115)
--- NOTE | 2024-04-06 11:26 | P.PNIM_ITS ---
Subjective Subjective Date of Service: 04/06/24 Interval History: Seen and evaluated this morning alert and interactive no complaints Review of Systems Review of Systems: Yes all other systems are reviewed and are negative Physical Exam 2 Vital Signs: Vital Signs: Last Vital Signs Temp 97.2 F 04/06/24 07:32 Pulse 77 04/06/24 07:32 Resp 20 04/06/24 07:32 BP 144/69 H 04/06/24 07:32 Pulse Ox 99 04/06/24 07:32 O2 Del Method Room Air 04/06/24 07:32 BMI result Body Mass Index 24.5 Const: Other: Constitutional : interactive, not in distress Cardiovascular : no JVP, no lower extremity edema Respiratory : bilateral chest movement, not in resp distress Gastrointestinal: soft, lax, Non tender Skin : Warm, Dry Neurological : Alert, no focal deficit Objective Data Active Medications Acetaminophen (Acetaminophen 325 Mg Tablet) 650 mg PO Q4H PRN PRN Reason: headache or pain Last Admin: 03/31/24 22:07 Dose: 650 mg Documented By: HILARIO Acetaminophen/Butalbital/Caffeine (Butalb/Acetamin/Caff 50/325/40 Tablet) 1 tab PO Q4H PRN PRN Reason: Headache Last Admin: 04/06/24 07:56 Dose: 1 tab Documented By: CEDRICK Amitriptyline HCl (Amitriptyline Hcl 25 Mg Tablet) 25 mg PO BEDTIME [facility] Last Admin: 04/05/24 20:39 Dose: Not Given Documented By: APTY Non-Admin Reason: Patient Refused Comments: Aspirin (Aspirin Enteric Coated 81 Mg Tablet.) 81 mg PO DAILY [facility] Last Admin: 04/06/24 07:48 Dose: 81 mg Documented By: CEDRICK Atorvastatin Calcium (Atorvastatin Calcium 10 Mg Tablet) 10 mg PO BEDTIME [facility] Last Admin: 04/05/24 20:39 Dose: 10 mg Documented By: PATY Empagliflozin (Empagliflozin 10 Mg Tablet) 10 mg PO DAILY [facility] Last Admin: 04/06/24 07:48 Dose: 10 mg Documented By: CEDRICK Enoxaparin Sodium (Enoxaparin Sodium 40 Mg/0.4 Ml Syringe) 40 mg SUBCUT Q24H [facility] Last Admin: 04/05/24 18:16 Dose: 40 mg Documented By: CEDRICK Fluticasone Propionate (Fluticasone Propionate Nasal 16 Gm [place]) 1 spray NOSTRIL-B BID [facility] Last Admin: 04/06/24 07:49 Dose: 1 spray Documented By: CEDRICK Glipizide (Glipizide 10 Mg Tablet) 10 mg PO BID [facility] Last Admin: 04/06/24 07:48 Dose: 10 mg Documented By: CEDRICK Lactulose (Lactulose 20 Gm/30 Ml Solution) 20 gm PO BID [facility] Last Admin: 04/06/24 07:48 Dose: 20 gm Documented By: CEDRICK Melatonin (Melatonin 3 Mg Tablet) 3 mg PO BEDTIME PRN PRN Reason: Insomnia Last Admin: 04/01/24 21:55 Dose: 3 mg Documented By: KERILAMClaudia Nitroglycerin (Nitroglycerin 0.4 Mg Tab.Subl) 0.4 mg SUBLINGUAL Q5M PRN PRN Reason: angina Omeprazole (Omeprazole 20 Mg Capsule.Dr) 20 mg PO DAILY@0630 [facility] Last Admin: 04/06/24 07:48 Dose: 20 mg Documented By: CEDRICK Sitagliptin Phosphate (Sitagliptin Phosphate 100 Mg Tablet) 100 mg PO DAILY [facility] Last Admin: 04/06/24 07:48 Dose: 100 mg Documented By: CEDRICK Sodium Chloride (0.9 % Sodium Chloride Flush 3 Ml Syringe) 3 ml IVFLUSH QSHIFT [facility] Last Admin: 04/06/24 07:48 Dose: 3 ml Documented By: CEDRICK Tramadol HCl (Tramadol Hcl 50 Mg Tablet) 25 mg PO Q6H PRN PRN Reason: Pain, Severe (Pain Scale 7-10) Last Admin: 04/05/24 20:39 Dose: 25 mg Documented By: PATY Labs 03/24/24 16:45 Labs: Laboratory Results - last 24 hr 04/05/24 04/05/24 04/05/24 11:24 16:49 20:42 POC Glucose 222 H 160 H 214 H 04/06/24 04/06/24 07:47 11:10 POC Glucose 87 126 H Assessment and Plan (1) Cognitive impairment: Status: Acute Plan 88F [facility] vascular dementia, diabetes, hypertension, hyperlipidemia, peptic ulcer disease presented with mechanical fall complicated left foot fracture Mechanical fall with left foot fracture Weight-bearing with boot only PT rec SNF pain management w Tramadol prn, tylenol Headach PRN Fiorecit Diabetes Continue glipizide, Januvia, Jardiance, monitor POC Vascular dementia w cognitive impairment Stable, guardianship pending Peptic ulcer disease Continue omeprazole DVT prophylaxis with Lovenox Full Code reason for continued hospitalization: Awaiting guardianship and placement Quality Stroke Does the patient have a stroke diagnosis?: No VTE Prior VTE?: No VTE Risk Level:: Medical - moderate - high VTE Device Contraindication: Treatment Not Indicated VTE Drug Contraindication: N/A - Med Ordered
[2024-04-06 15:56] VITALS: BP 139/68; PULSE 95; RESP 18; TEMP 36.6; O2SAT 96
[2024-04-06 16:36] LABS: Glucose, Whole Blood 184 mg/dL (60-115)
[2024-04-06] MEDS: Enoxaparin Sodium 40 MG/0.4 ML SYRINGE SUBCUT (18:34)
[2024-04-06] MEDS: Atorvastatin Calcium 10 MG TABLET PO (20:05)
[2024-04-06] MEDS: Melatonin 3 MG TABLET PO (20:05)
[2024-04-06] MEDS: traMADoL HCL 50 MG TABLET 25 MG PO (20:16)
[2024-04-06 20:24] VITALS: BP 105/58; PULSE 86; RESP 18; TEMP 37.1; O2SAT 98
[2024-04-06 21:18] LABS: Glucose, Whole Blood 283 mg/dL (60-115)
[2024-04-07] VITALS: BP 126/59; PULSE 78; RESP 18; TEMP 37; O2SAT 98
[2024-04-07] MEDS: Omeprazole 20 MG CAPSULE.DR PO (06:08)
[2024-04-07 07:33] LABS: Glucose, Whole Blood 78 mg/dL (60-115)
[2024-04-07 07:42] VITALS: BP 148/77; PULSE 82; RESP 20; TEMP 36.6; O2SAT 99
[2024-04-07] MEDS: SITagliptin Phosphate 100 MG TABLET PO (07:59)
[2024-04-07] MEDS: Butalb/Acetamin/Caff 50/325/40 TABLET 1 TAB PO (07:59)
[2024-04-07] MEDS: Lactulose 20 GM/30 ML SOLUTION PO ×2 (07:59→20:55)
[2024-04-07] MEDS: Empagliflozin 10 MG TABLET PO (08:00)
[2024-04-07] MEDS: Fluticasone Propionate Nasal 16 GM SPRAY 1 SPRAY NOSTRIL-B ×2 (08:00→20:55)
[2024-04-07] MEDS: Aspirin Enteric Coated 81 MG TABLET.DR PO (08:00)
[2024-04-07] MEDS: 0.9 % Sodium Chloride Flush 3 ML SYRINGE IVFLUSH ×3 (08:00→20:57)
[2024-04-07] MEDS: glipiZIDE 10 MG TABLET PO ×2 (08:00→20:55)
--- NOTE | 2024-04-07 10:15 | HO.PM.IMPN ---
Subjective Subjective Date of Service: 04/07/24 Interval History: Seen and evaluated this morning alert and interactive no complaints Review of Systems Review of Systems: Yes all other systems are reviewed and are negative Physical Exam Vital Signs: Vital Signs: Last Vital Signs Temp 97.8 F 04/07/24 07:42 Pulse 82 04/07/24 07:42 Resp 20 04/07/24 07:42 BP 148/77 H 04/07/24 07:42 Pulse Ox 99 04/07/24 07:42 O2 Del Method Room Air 04/07/24 07:42 BMI result Body Mass Index 24.5 Const: Other: Constitutional : interactive, not in distress Cardiovascular : no JVP, no lower extremity edema Respiratory : bilateral chest movement, not in resp distress Gastrointestinal: soft, lax, Non tender Skin : Warm, Dry Neurological : Alert, no focal deficit Objective Data Active Medications Acetaminophen (Acetaminophen 325 Mg Tablet) 650 mg PO Q4H PRN PRN Reason: headache or pain Last Admin: 03/31/24 22:07 Dose: 650 mg Documented By: HILARIO Acetaminophen/Butalbital/Caffeine (Butalb/Acetamin/Caff 50/325/40 Tablet) 1 tab PO Q4H PRN PRN Reason: Headache Last Admin: 04/07/24 07:59 Dose: 1 tab Documented By: CEDRICK Amitriptyline HCl (Amitriptyline Hcl 25 Mg Tablet) 25 mg PO BEDTIME [facility] Last Admin: 04/06/24 20:05 Dose: Not Given Documented By: GINETTE Non-Admin Reason: Patient Refused Aspirin (Aspirin Enteric Coated 81 Mg Tablet.) 81 mg PO DAILY [facility] Last Admin: 04/07/24 08:00 Dose: 81 mg Documented By: CEDRICK Atorvastatin Calcium (Atorvastatin Calcium 10 Mg Tablet) 10 mg PO BEDTIME [facility] Last Admin: 04/06/24 20:05 Dose: 10 mg Documented By: GINETTE Empagliflozin (Empagliflozin 10 Mg Tablet) 10 mg PO DAILY [facility] Last Admin: 04/07/24 08:00 Dose: 10 mg Documented By: CEDRIKC Enoxaparin Sodium (Enoxaparin Sodium 40 Mg/0.4 Ml Syringe) 40 mg SUBCUT Q24H [facility] Last Admin: 04/06/24 18:34 Dose: 40 mg Documented By: CEDRICK Fluticasone Propionate (Fluticasone Propionate Nasal 16 Gm [place]) 1 spray NOSTRIL-B BID [facility] Last Admin: 04/07/24 08:00 Dose: 1 spray Documented By: CEDRICK Glipizide (Glipizide 10 Mg Tablet) 10 mg PO BID [facility] Last Admin: 04/07/24 08:00 Dose: 10 mg Documented By: CEDRICK Lactulose (Lactulose 20 Gm/30 Ml Solution) 20 gm PO BID [facility] Last Admin: 04/07/24 07:59 Dose: 20 gm Documented By: CEDRICK Melatonin (Melatonin 3 Mg Tablet) 3 mg PO BEDTIME PRN PRN Reason: Insomnia Last Admin: 04/06/24 20:05 Dose: 3 mg Documented By: GINETTE Nitroglycerin (Nitroglycerin 0.4 Mg Tab.Subl) 0.4 mg SUBLINGUAL Q5M PRN PRN Reason: angina Omeprazole (Omeprazole 20 Mg Capsule.Dr) 20 mg PO DAILY@0630 [facility] Last Admin: 04/07/24 06:08 Dose: 20 mg Documented By: GINETTE Sitagliptin Phosphate (Sitagliptin Phosphate 100 Mg Tablet) 100 mg PO DAILY [facility] Last Admin: 04/07/24 07:59 Dose: 100 mg Documented By: CEDRICK Sodium Chloride (0.9 % Sodium Chloride Flush 3 Ml Syringe) 3 ml IVFLUSH QSHIFT [facility] Last Admin: 04/07/24 08:00 Dose: 3 ml Documented By: CEDRICK Tramadol HCl (Tramadol Hcl 50 Mg Tablet) 25 mg PO Q6H PRN PRN Reason: Pain, Severe (Pain Scale 7-10) Last Admin: 04/06/24 20:16 Dose: 25 mg Documented By: GINETTE Labs 03/24/24 16:45 Labs: Laboratory Results - last 24 hr 04/06/24 04/06/24 04/06/24 11:10 16:29 21:08 POC Glucose 126 H 184 H 283 H 04/07/24 07:25 POC Glucose 78 Assessment and Plan (1) Cognitive impairment: Status: Acute Plan 88F H vascular dementia, diabetes, hypertension, hyperlipidemia, peptic ulcer disease presented with mechanical fall complicated left foot fracture Mechanical fall with left foot fracture Weight-bearing with boot only PT rec SNF pain management w Tramadol prn, tylenol Headach PRN Fiorecit Diabetes Continue glipizide, Januvia, Jardiance, monitor POC Vascular dementia w cognitive impairment Stable, guardianship pending Peptic ulcer disease Continue omeprazole DVT prophylaxis with Lovenox Full Code reason for continued hospitalization: Awaiting guardianship and placement Quality Stroke Does the patient have a stroke diagnosis?: No VTE Prior VTE?: No VTE Risk Level:: Medical - moderate - high VTE Device Contraindication: Treatment Not Indicated VTE Drug Contraindication: N/A - Med Ordered
[2024-04-07 11:38] LABS: Glucose, Whole Blood 168 mg/dL (60-115)
[2024-04-07 15:22] VITALS: BP 109/62; PULSE 87; RESP 17; TEMP 36.1; O2SAT 97
[2024-04-07 16:07] LABS: Glucose, Whole Blood 325 mg/dL (60-115)
[2024-04-07] MEDS: Enoxaparin Sodium 40 MG/0.4 ML SYRINGE SUBCUT (17:39)
[2024-04-07 20:46] LABS: Glucose, Whole Blood 267 mg/dL (60-115)
[2024-04-07] MEDS: Atorvastatin Calcium 10 MG TABLET PO (20:55)
[2024-04-07] MEDS: traMADoL HCL 50 MG TABLET 25 MG PO (20:56)
[2024-04-07] MEDS: Melatonin 3 MG TABLET PO (20:56)
[2024-04-08] VITALS: BP 120/56; PULSE 87; RESP 18; TEMP 36.7; O2SAT 99
[2024-04-08] MEDS: Omeprazole 20 MG CAPSULE.DR PO (05:34)
[2024-04-08] MEDS: Butalb/Acetamin/Caff 50/325/40 TABLET 1 TAB PO ×2 (05:44→15:42)
[2024-04-08 07:29] LABS: Glucose, Whole Blood 132 mg/dL (60-115)
[2024-04-08 07:45] VITALS: BP 124/59; PULSE 89; RESP 16; TEMP 36.6; O2SAT 98
[2024-04-08] MEDS: Empagliflozin 10 MG TABLET PO (09:14)
[2024-04-08] MEDS: Aspirin Enteric Coated 81 MG TABLET.DR PO (09:14)
[2024-04-08] MEDS: glipiZIDE 10 MG TABLET PO ×2 (09:14→20:13)
[2024-04-08] MEDS: SITagliptin Phosphate 100 MG TABLET PO (09:14)
[2024-04-08] MEDS: traMADoL HCL 50 MG TABLET 25 MG PO (09:15)
[2024-04-08] MEDS: 0.9 % Sodium Chloride Flush 3 ML SYRINGE IVFLUSH ×2 (09:20→15:42)
[2024-04-08] MEDS: Fluticasone Propionate Nasal 16 GM SPRAY 1 SPRAY NOSTRIL-B (09:20)
--- NOTE | 2024-04-08 09:43 | HO.PM.IMPN ---
Subjective Subjective Date of Service: 04/08/24 Interval History: Seen and evaluated this morning alert and interactive no complaints Review of Systems Review of Systems: Yes all other systems are reviewed and are negative Physical Exam Vital Signs: Vital Signs: Last Vital Signs Temp 97.9 F 04/08/24 07:45 Pulse 89 04/08/24 07:45 Resp 16 04/08/24 07:45 BP 124/59 L 04/08/24 07:45 Pulse Ox 98 04/08/24 07:45 O2 Del Method Room Air 04/08/24 07:45 BMI result Body Mass Index 24.5 Const: Other: Constitutional : interactive, not in distress Cardiovascular : no JVP, no lower extremity edema Respiratory : bilateral chest movement, not in resp distress Gastrointestinal: soft, lax, Non tender Skin : Warm, Dry Neurological : Alert, no focal deficit Objective Data Active Medications Acetaminophen (Acetaminophen 325 Mg Tablet) 650 mg PO Q4H PRN PRN Reason: headache or pain Last Admin: 03/31/24 22:07 Dose: 650 mg Documented By: HILARIO Acetaminophen/Butalbital/Caffeine (Butalb/Acetamin/Caff 50/325/40 Tablet) 1 tab PO Q4H PRN PRN Reason: Headache Last Admin: 04/08/24 05:44 Dose: 1 tab Documented By: DONG Amitriptyline HCl (Amitriptyline Hcl 25 Mg Tablet) 25 mg PO BEDTIME [facility] Last Admin: 04/07/24 21:02 Dose: Not Given Documented By: DONG Non-Admin Reason: Patient Refused Aspirin (Aspirin Enteric Coated 81 Mg Tablet.) 81 mg PO DAILY [facility] Last Admin: 04/08/24 09:14 Dose: 81 mg Documented By: KARUNA Atorvastatin Calcium (Atorvastatin Calcium 10 Mg Tablet) 10 mg PO BEDTIME [facility] Last Admin: 04/07/24 20:55 Dose: 10 mg Documented By: DONG Empagliflozin (Empagliflozin 10 Mg Tablet) 10 mg PO DAILY [facility] Last Admin: 04/08/24 09:14 Dose: 10 mg Documented By: KARUNA Enoxaparin Sodium (Enoxaparin Sodium 40 Mg/0.4 Ml Syringe) 40 mg SUBCUT Q24H [facility] Last Admin: 04/07/24 17:39 Dose: 40 mg Documented By: CEDRICK Fluticasone Propionate (Fluticasone Propionate Nasal 16 Gm [place]) 1 spray NOSTRIL-B BID [facility] Last Admin: 04/08/24 09:20 Dose: 1 spray Documented By: KARUNA Glipizide (Glipizide 10 Mg Tablet) 10 mg PO BID [facility] Last Admin: 04/08/24 09:14 Dose: 10 mg Documented By: KARUNA Lactulose (Lactulose 20 Gm/30 Ml Solution) 20 gm PO BID [facility] Last Admin: 04/08/24 09:14 Dose: Not Given Documented By: KARUNA Non-Admin Reason: Patient Refused Melatonin (Melatonin 3 Mg Tablet) 3 mg PO BEDTIME PRN PRN Reason: Insomnia Last Admin: 04/07/24 20:56 Dose: 3 mg Documented By: DONG Nitroglycerin (Nitroglycerin 0.4 Mg Tab.Subl) 0.4 mg SUBLINGUAL Q5M PRN PRN Reason: angina Omeprazole (Omeprazole 20 Mg Capsule.Dr) 20 mg PO DAILY@0630 [facility] Last Admin: 04/08/24 05:34 Dose: 20 mg Documented By: DONG Sitagliptin Phosphate (Sitagliptin Phosphate 100 Mg Tablet) 100 mg PO DAILY [facility] Last Admin: 04/08/24 09:14 Dose: 100 mg Documented By: KARUNA Sodium Chloride (0.9 % Sodium Chloride Flush 3 Ml Syringe) [facility] Last Admin: 04/08/24 09:20 Dose: 3 ml Documented By: KARUNA Tramadol HCl (Tramadol Hcl 50 Mg Tablet) 25 mg PO Q6H PRN PRN Reason: Pain, Severe (Pain Scale 7-10) Last Admin: 04/08/24 09:15 Dose: 25 mg Documented By: KARUNA Labs 03/24/24 16:45 Labs: Laboratory Results - last 24 hr 04/07/24 04/07/24 04/07/24 11:34 16:00 20:38 POC Glucose 168 H 325 H 267 H 04/08/24 07:12 POC Glucose 132 H Assessment and Plan (1) Cognitive impairment: Status: Acute Plan 88F PMH vascular dementia, diabetes, hypertension, hyperlipidemia, peptic ulcer disease presented with mechanical fall complicated left foot fracture Mechanical fall with left foot fracture Weight-bearing with boot only PT rec SNF pain management w Tramadol prn, tylenol Headach PRN Fiorecit Diabetes Continue glipizide, Januvia, Jardiance, monitor POC Vascular dementia w cognitive impairment Stable, guardianship pending Peptic ulcer disease Continue omeprazole DVT prophylaxis with Lovenox Full Code reason for continued hospitalization: Awaiting guardianship and placement Quality Stroke Does the patient have a stroke diagnosis?: No VTE Prior VTE?: No VTE Risk Level:: Medical - moderate - high VTE Device Contraindication: Treatment Not Indicated VTE Drug Contraindication: N/A - Med Ordered
[2024-04-08 11:27] LABS: Glucose, Whole Blood 155 mg/dL (60-115)
[2024-04-08 11:30] VITALS: BP 110/57; PULSE 73; RESP 18; TEMP 36.5; O2SAT 98
--- NOTE | 2024-04-08 11:31 | MHC.CM.PN ---
Addendum entered by Anai Wang 04/08/24 13:57: face sheet was also sent via scan to: Addendum entered by Anai Wang 04/08/24 12:19: Return call from guardiGaston constantino, again requested that face sheet be sent to her via fax, and gave a different fax #, . info. was sent today, again, jesse said she would look into insurance change. Original Note: CM left a VM message today for Pt's guardian, Gaston Holman to ask if pt.'s insurance has been changed so that we can put out referrals, awaiting return call.
[2024-04-08 15:36] VITALS: BP 117/58; PULSE 80; RESP 18; TEMP 36.5; O2SAT 97
[2024-04-08 16:46] LABS: Glucose, Whole Blood 143 mg/dL (60-115)
[2024-04-08] MEDS: Enoxaparin Sodium 40 MG/0.4 ML SYRINGE SUBCUT (20:13)
[2024-04-08] MEDS: Atorvastatin Calcium 10 MG TABLET PO (20:13)
[2024-04-08] MEDS: Melatonin 3 MG TABLET PO (20:15)
[2024-04-08 20:40] LABS: Glucose, Whole Blood 207 mg/dL (60-115)
[2024-04-09] VITALS: BP 116/64; PULSE 94; RESP 19; TEMP 36.3; O2SAT 96
[2024-04-09] MEDS: Omeprazole 20 MG CAPSULE.DR PO (05:33)
[2024-04-09] MEDS: 0.9 % Sodium Chloride Flush 3 ML SYRINGE IVFLUSH ×4 (05:36→21:51)
[2024-04-09 07:56] LABS: Glucose, Whole Blood 105 mg/dL (60-115)
[2024-04-09 08:00] VITALS: BP 151/71; PULSE 86; RESP 18; TEMP 36.6; O2SAT 100
--- NOTE | 2024-04-09 09:08 | P.PNIM_ITS ---
Subjective Subjective Date of Service: 04/09/24 Interval History: Seen and evaluated this morning alert and interactive no complaints Review of Systems Review of Systems: Yes all other systems are reviewed and are negative Physical Exam 2 Vital Signs: Vital Signs: Last Vital Signs Temp 97.9 F 04/09/24 08:00 Pulse 86 04/09/24 08:00 Resp 18 04/09/24 08:00 BP 151/71 H 04/09/24 08:00 Pulse Ox 100 04/09/24 08:00 O2 Del Method Room Air 04/09/24 08:00 BMI result Body Mass Index 24.5 Const: Other: Constitutional : interactive, not in distress Cardiovascular : no JVP, no lower extremity edema Respiratory : bilateral chest movement, not in resp distress Gastrointestinal: soft, lax, Non tender Skin : Warm, Dry Neurological : Alert, no focal deficit Objective Data Active Medications Acetaminophen (Acetaminophen 325 Mg Tablet) 650 mg PO Q4H PRN PRN Reason: headache or pain Last Admin: 03/31/24 22:07 Dose: 650 mg Documented By: HILARIO Acetaminophen/Butalbital/Caffeine (Butalb/Acetamin/Caff 50/325/40 Tablet) 1 tab PO Q4H PRN PRN Reason: Headache Last Admin: 04/08/24 15:42 Dose: 1 tab Documented By: KARUNA Amitriptyline HCl (Amitriptyline Hcl 25 Mg Tablet) 25 mg PO BEDTIME [facility] Last Admin: 04/08/24 20:34 Dose: Not Given Documented By: FAHAD Non-Admin Reason: Patient Refused Aspirin (Aspirin Enteric Coated 81 Mg Tablet.) 81 mg PO DAILY [facility] Last Admin: 04/08/24 09:14 Dose: 81 mg Documented By: KARUNA Atorvastatin Calcium (Atorvastatin Calcium 10 Mg Tablet) 10 mg PO BEDTIME [facility] Last Admin: 04/08/24 20:13 Dose: 10 mg Documented By: FAHAD Empagliflozin (Empagliflozin 10 Mg Tablet) 10 mg PO DAILY [facility] Last Admin: 04/08/24 09:14 Dose: 10 mg Documented By: KARUNA Enoxaparin Sodium (Enoxaparin Sodium 40 Mg/0.4 Ml Syringe) 40 mg SUBCUT Q24H [facility] Last Admin: 04/08/24 20:13 Dose: 40 mg Documented By: FAHAD Fluticasone Propionate (Fluticasone Propionate Nasal 16 Gm [place]) 1 spray NOSTRIL-B BID [facility] Last Admin: 04/08/24 21:09 Dose: Not Given Documented By: FAHAD Non-Admin Reason: Patient Refused Glipizide (Glipizide 10 Mg Tablet) 10 mg PO BID [facility] Last Admin: 04/08/24 20:13 Dose: 10 mg Documented By: FAHAD Lactulose (Lactulose 20 Gm/30 Ml Solution) 20 gm PO BID [facility] Last Admin: 04/08/24 21:56 Dose: Not Given Documented By: FAHAD Non-Admin Reason: Patient Refused Melatonin (Melatonin 3 Mg Tablet) 3 mg PO BEDTIME PRN PRN Reason: Insomnia Last Admin: 04/08/24 20:15 Dose: 3 mg Documented By: FAHAD Nitroglycerin (Nitroglycerin 0.4 Mg Tab.Subl) 0.4 mg SUBLINGUAL Q5M PRN PRN Reason: angina Omeprazole (Omeprazole 20 Mg Capsule.Dr) 20 mg PO DAILY@0630 [facility] Last Admin: 04/09/24 05:33 Dose: 20 mg Documented By: FAHAD Sitagliptin Phosphate (Sitagliptin Phosphate 100 Mg Tablet) 100 mg PO DAILY [facility] Last Admin: 04/08/24 09:14 Dose: 100 mg Documented By: KARUNA Sodium Chloride (0.9 % Sodium Chloride Flush 3 Ml Syringe) 3 ml IVFLUSH QSHIFT [facility] Last Admin: 04/09/24 05:36 Dose: 3 ml Documented By: FAHAD Labs 03/24/24 16:45 Labs: Laboratory Results - last 24 hr 04/08/24 04/08/24 04/08/24 11:10 16:41 20:34 POC Glucose 155 H 143 H 207 H 04/09/24 07:45 POC Glucose 105 Assessment and Plan (1) Cognitive impairment: Status: Acute Plan 88F PMH vascular dementia, diabetes, hypertension, hyperlipidemia, peptic ulcer disease presented with mechanical fall complicated left foot fracture Mechanical fall with left foot fracture PT rec SNF pain management w Tramadol prn, tylenol Headach PRN Fiorecit Diabetes Continue glipizide, Januvia, Jardiance, monitor POC Vascular dementia w cognitive impairment Stable, guardianship pending Peptic ulcer disease Continue omeprazole DVT prophylaxis with Lovenox Full Code reason for continued hospitalization: Awaiting guardianship and placement Quality Stroke Does the patient have a stroke diagnosis?: No VTE Prior VTE?: No VTE Risk Level:: Medical - moderate - high VTE Device Contraindication: Treatment Not Indicated VTE Drug Contraindication: N/A - Med Ordered
[2024-04-09] MEDS: Aspirin Enteric Coated 81 MG TABLET.DR PO (09:51)
[2024-04-09] MEDS: SITagliptin Phosphate 100 MG TABLET PO (09:51)
[2024-04-09] MEDS: Butalb/Acetamin/Caff 50/325/40 TABLET 1 TAB PO (09:51)
[2024-04-09] MEDS: glipiZIDE 10 MG TABLET PO ×2 (09:51→21:51)
[2024-04-09] MEDS: Empagliflozin 10 MG TABLET PO (09:51)
[2024-04-09 11:21] LABS: Glucose, Whole Blood 160 mg/dL (60-115)
--- NOTE | 2024-04-09 12:51 | MHC.CM.PN ---
Addendum entered by Anai Wang 04/09/24 13:32: Referrals out for STR, leading to LTC. Medicare #[id number] Addendum entered by Anai Wang 04/09/24 12:53: CM also requested guardian inform us of Medicare # so we can refer for STR. Original Note: CM received an email from pt.'s guardian today saying that pt. does not have [employer] and she has Medicare, and guardian is applying for Medicaid on her behalf. [facility] called [facility] to discuss referral there, awaiting return call.
[2024-04-09] MEDS: traMADoL HCL 50 MG TABLET 25 MG PO ×2 (13:42→21:50)
[2024-04-09 16:00] VITALS: BP 124/58; PULSE 81; RESP 18; TEMP 36.6; O2SAT 97
[2024-04-09 16:00] LABS: Glucose, Whole Blood 175 mg/dL (60-115)
[2024-04-09 19:38] VITALS: BP 115/58; PULSE 86; RESP 20; TEMP 36.7; O2SAT 98
[2024-04-09 21:06] LABS: Glucose, Whole Blood 230 mg/dL (60-115)
[2024-04-09] MEDS: Enoxaparin Sodium 40 MG/0.4 ML SYRINGE SUBCUT (21:49)
[2024-04-09] MEDS: Melatonin 3 MG TABLET PO (21:51)
[2024-04-09] MEDS: Atorvastatin Calcium 10 MG TABLET PO (21:51)
[2024-04-09 23:39] VITALS: BP 111/58; PULSE 77; RESP 20; TEMP 36.4; O2SAT 97
[2024-04-10] MEDS: Omeprazole 20 MG CAPSULE.DR PO (05:43)
[2024-04-10 07:29] LABS: Glucose, Whole Blood 91 mg/dL (60-115)
[2024-04-10 08:00] VITALS: BP 147/69; PULSE 82; RESP 20; TEMP 36.4; O2SAT 97
[2024-04-10] MEDS: SITagliptin Phosphate 100 MG TABLET PO (09:18)
[2024-04-10] MEDS: Empagliflozin 10 MG TABLET PO (09:18)
[2024-04-10] MEDS: Lactulose 20 GM/30 ML SOLUTION PO (09:18)
[2024-04-10] MEDS: Aspirin Enteric Coated 81 MG TABLET.DR PO (09:19)
[2024-04-10] MEDS: glipiZIDE 10 MG TABLET PO ×2 (09:19→21:56)
[2024-04-10] MEDS: traMADoL HCL 50 MG TABLET 25 MG PO ×2 (09:20→21:57)
[2024-04-10] MEDS: 0.9 % Sodium Chloride Flush 3 ML SYRINGE IVFLUSH ×2 (09:20→17:39)
--- NOTE | 2024-04-10 11:06 | P.PNIM_ITS ---
Subjective Subjective Date of Service: 04/10/24 Interval History: Seen and evaluated this morning alert and interactive no complaints Review of Systems Review of Systems: Yes all other systems are reviewed and are negative Physical Exam 2 Vital Signs: Vital Signs: Last Vital Signs Temp 97.5 F 04/10/24 08:00 Pulse 82 04/10/24 08:00 Resp 20 04/10/24 08:00 BP 147/69 H 04/10/24 08:00 Pulse Ox 97 04/10/24 08:00 O2 Del Method Room Air 04/10/24 08:00 BMI result Body Mass Index 24.5 Const: Other: Constitutional : interactive, not in distress Cardiovascular : no JVP, no lower extremity edema Respiratory : bilateral chest movement, not in resp distress Gastrointestinal: soft, lax, Non tender Skin : Warm, Dry Neurological : Alert, no focal deficit Objective Data Active Medications Acetaminophen (Acetaminophen 325 Mg Tablet) 650 mg PO Q4H PRN PRN Reason: headache or pain Last Admin: 03/31/24 22:07 Dose: 650 mg Documented By: HILARIO Acetaminophen/Butalbital/Caffeine (Butalb/Acetamin/Caff 50/325/40 Tablet) 1 tab PO Q4H PRN PRN Reason: Headache Last Admin: 04/09/24 09:51 Dose: 1 tab Documented By: BRISA Amitriptyline HCl (Amitriptyline Hcl 25 Mg Tablet) 25 mg PO BEDTIME [facility] Last Admin: 04/09/24 21:50 Dose: Not Given Documented By: PATY Non-Admin Reason: Patient Refused Aspirin (Aspirin Enteric Coated 81 Mg Tablet.) 81 mg PO DAILY [facility] Last Admin: 04/10/24 09:19 Dose: 81 mg Documented By: ADAN Atorvastatin Calcium (Atorvastatin Calcium 10 Mg Tablet) 10 mg PO BEDTIME [facility] Last Admin: 04/09/24 21:51 Dose: 10 mg Documented By: PATY Empagliflozin (Empagliflozin 10 Mg Tablet) 10 mg PO DAILY [facility] Last Admin: 04/10/24 09:18 Dose: 10 mg Documented By: ADAN Enoxaparin Sodium (Enoxaparin Sodium 40 Mg/0.4 Ml Syringe) 40 mg SUBCUT Q24H [facility] Last Admin: 04/09/24 21:49 Dose: 40 mg Documented By: PATY Fluticasone Propionate (Fluticasone Propionate Nasal 16 Gm [place]) 1 spray NOSTRIL-B BID [facility] Last Admin: 04/09/24 23:50 Dose: Not Given Documented By: PATY Non-Admin Reason: Patient Refused Glipizide (Glipizide 10 Mg Tablet) 10 mg PO BID [facility] Last Admin: 04/10/24 09:19 Dose: 10 mg Documented By: ADAN Lactulose (Lactulose 20 Gm/30 Ml Solution) 20 gm PO BID [facility] Last Admin: 04/10/24 09:18 Dose: 20 gm Documented By: ADAN Melatonin (Melatonin 3 Mg Tablet) 3 mg PO BEDTIME PRN PRN Reason: Insomnia Last Admin: 04/09/24 21:51 Dose: 3 mg Documented By: PATY Nitroglycerin (Nitroglycerin 0.4 Mg Tab.Subl) 0.4 mg SUBLINGUAL Q5M PRN PRN Reason: angina Omeprazole (Omeprazole 20 Mg Capsule.Dr) 20 mg PO DAILY@0630 [facility] Last Admin: 04/10/24 05:43 Dose: 20 mg Documented By: PATY Sitagliptin Phosphate (Sitagliptin Phosphate 100 Mg Tablet) 100 mg PO DAILY [facility] Last Admin: 04/10/24 09:18 Dose: 100 mg Documented By: ADAN Sodium Chloride (0.9 % Sodium Chloride Flush 3 Ml Syringe) 3 ml IVFLUSH QSHIFT [facility] Last Admin: 04/10/24 09:20 Dose: 3 ml Documented By: ADAN Tramadol HCl (Tramadol Hcl 50 Mg Tablet) 25 mg PO Q6H PRN PRN Reason: moderate pain Last Admin: 04/10/24 09:20 Dose: 25 mg Documented By: ADAN Labs 03/24/24 16:45 Labs: Laboratory Results - last 24 hr 04/09/24 04/09/24 04/09/24 11:16 15:51 20:09 POC Glucose 160 H 175 H 230 H 04/10/24 07:18 POC Glucose 91 Assessment and Plan (1) Cognitive impairment: Status: Acute Plan 88F PMH vascular dementia, diabetes, hypertension, hyperlipidemia, peptic ulcer disease presented with mechanical fall complicated left foot fracture Mechanical fall with left foot fracture PT rec SNF pain management w Tramadol prn, tylenol Headach PRN Fiorecit Diabetes Continue glipizide, Januvia, Jardiance, monitor POC Vascular dementia w cognitive impairment Stable, guardianship pending Peptic ulcer disease Continue omeprazole DVT prophylaxis with Lovenox Full Code reason for continued hospitalization: Awaiting guardianship and placement Quality Stroke Does the patient have a stroke diagnosis?: No VTE Prior VTE?: No VTE Risk Level:: Medical - moderate - high VTE Device Contraindication: Treatment Not Indicated VTE Drug Contraindication: N/A - Med Ordered
[2024-04-10] MEDS: Fluticasone Propionate Nasal 16 GM SPRAY 1 SPRAY NOSTRIL-B (11:16)
[2024-04-10 11:26] LABS: Glucose, Whole Blood 158 mg/dL (60-115)
[2024-04-10 15:50] VITALS: BP 113/67; PULSE 86; RESP 18; TEMP 36.5; O2SAT 98
[2024-04-10 16:20] LABS: Glucose, Whole Blood 212 mg/dL (60-115)
[2024-04-10] MEDS: Enoxaparin Sodium 40 MG/0.4 ML SYRINGE SUBCUT (17:39)
[2024-04-10 21:22] LABS: Glucose, Whole Blood 249 mg/dL (60-115)
[2024-04-10] MEDS: Atorvastatin Calcium 10 MG TABLET PO (21:56)
[2024-04-10] MEDS: Melatonin 3 MG TABLET PO (21:56)
[2024-04-10 23:29] VITALS: BP 132/62; PULSE 80; RESP 18; TEMP 36.6; O2SAT 97
[2024-04-11] MEDS: traMADoL HCL 50 MG TABLET 25 MG PO ×2 (06:24→21:02)
[2024-04-11] MEDS: Omeprazole 20 MG CAPSULE.DR PO (06:24)
[2024-04-11 07:38] LABS: Glucose, Whole Blood 92 mg/dL (60-115)
[2024-04-11 07:45] VITALS: BP 125/67; PULSE 90; RESP 19; TEMP 36.5; O2SAT 97
[2024-04-11] MEDS: Butalb/Acetamin/Caff 50/325/40 TABLET 1 TAB PO (09:09)
[2024-04-11] MEDS: Empagliflozin 10 MG TABLET PO (09:09)
[2024-04-11] MEDS: SITagliptin Phosphate 100 MG TABLET PO (09:09)
[2024-04-11] MEDS: Lactulose 20 GM/30 ML SOLUTION PO (09:09)
[2024-04-11] MEDS: Aspirin Enteric Coated 81 MG TABLET.DR PO (09:09)
[2024-04-11] MEDS: glipiZIDE 10 MG TABLET PO ×2 (09:09→20:56)
[2024-04-11 09:11] VITALS: BP 125/67; PULSE 90; RESP 19; TEMP 36.5
[2024-04-11] MEDS: 0.9 % Sodium Chloride Flush 3 ML SYRINGE IVFLUSH ×3 (09:12→21:02)
--- NOTE | 2024-04-11 09:21 | HO.PM.IMPN ---
Subjective Subjective Date of Service: 04/11/24 Interval History: Seen and evaluated this morning alert and interactive no complaints Review of Systems Review of Systems: Yes all other systems are reviewed and are negative Physical Exam Vital Signs: Vital Signs: Last Vital Signs Temp 97.7 F 04/11/24 09:11 Pulse 90 04/11/24 09:11 Resp 19 04/11/24 09:11 BP 125/67 04/11/24 09:11 Pulse Ox 97 04/11/24 07:45 O2 Del Method Room Air 04/11/24 07:45 BMI result Body Mass Index 24.5 Const: Other: Constitutional : interactive, not in distress Cardiovascular : no JVP, no lower extremity edema Respiratory : bilateral chest movement, not in resp distress Gastrointestinal: soft, lax, Non tender Skin : Warm, Dry Neurological : Alert, no focal deficit Objective Data Active Medications Acetaminophen (Acetaminophen 325 Mg Tablet) 650 mg PO Q4H PRN PRN Reason: headache or pain Last Admin: 03/31/24 22:07 Dose: 650 mg Documented By: HILARIO Acetaminophen/Butalbital/Caffeine (Butalb/Acetamin/Caff 50/325/40 Tablet) 1 tab PO Q4H PRN PRN Reason: Headache Last Admin: 04/11/24 09:09 Dose: 1 tab Documented By: ADAN Amitriptyline HCl (Amitriptyline Hcl 25 Mg Tablet) 25 mg PO BEDTIME [facility] Last Admin: 04/10/24 22:03 Dose: Not Given Documented By: PATY Non-Admin Reason: Patient Refused Aspirin (Aspirin Enteric Coated 81 Mg Tablet.) 81 mg PO DAILY [facility] Last Admin: 04/11/24 09:09 Dose: 81 mg Documented By: ADAN Atorvastatin Calcium (Atorvastatin Calcium 10 Mg Tablet) 10 mg PO BEDTIME [facility] Last Admin: 04/10/24 21:56 Dose: 10 mg Documented By: PATY Empagliflozin (Empagliflozin 10 Mg Tablet) 10 mg PO DAILY [facility] Last Admin: 04/11/24 09:09 Dose: 10 mg Documented By: ADAN Enoxaparin Sodium (Enoxaparin Sodium 40 Mg/0.4 Ml Syringe) 40 mg SUBCUT Q24H [facility] Last Admin: 04/10/24 17:39 Dose: 40 mg Documented By: ADAN Fluticasone Propionate (Fluticasone Propionate Nasal 16 Gm [place]) 1 spray NOSTRIL-B BID [facility] Last Admin: 04/10/24 22:03 Dose: Not Given Documented By: PATY Non-Admin Reason: Patient Refused Glipizide (Glipizide 10 Mg Tablet) 10 mg PO BID [facility] Last Admin: 04/11/24 09:09 Dose: 10 mg Documented By: ADAN Lactulose (Lactulose 20 Gm/30 Ml Solution) 20 gm PO BID [facility] Last Admin: 04/11/24 09:09 Dose: 20 gm Documented By: ADAN Melatonin (Melatonin 3 Mg Tablet) 3 mg PO BEDTIME PRN PRN Reason: Insomnia Last Admin: 04/10/24 21:56 Dose: 3 mg Documented By: PATY Nitroglycerin (Nitroglycerin 0.4 Mg Tab.Subl) 0.4 mg SUBLINGUAL Q5M PRN PRN Reason: angina Omeprazole (Omeprazole 20 Mg Capsule.Dr) 20 mg PO DAILY@0630 [facility] Last Admin: 04/11/24 06:24 Dose: 20 mg Documented By: PATY Sitagliptin Phosphate (Sitagliptin Phosphate 100 Mg Tablet) 100 mg PO DAILY [facility] Last Admin: 04/11/24 09:09 Dose: 100 mg Documented By: ADAN Sodium Chloride (0.9 % Sodium Chloride Flush 3 Ml Syringe) 3 ml IVFLUSH QSHIFT [facility] Last Admin: 04/11/24 09:12 Dose: 3 ml Documented By: ADAN Tramadol HCl (Tramadol Hcl 50 Mg Tablet) 25 mg PO Q6H PRN PRN Reason: moderate pain Last Admin: 04/11/24 06:24 Dose: 25 mg Documented By: PATY Labs 03/24/24 16:45 Labs: Laboratory Results - last 24 hr 04/10/24 04/10/24 04/10/24 11:16 16:11 20:42 POC Glucose 158 H 212 H 249 H 04/11/24 07:34 POC Glucose 92 Assessment and Plan (1) Cognitive impairment: Status: Acute Plan 88F PMH vascular dementia, diabetes, hypertension, hyperlipidemia, peptic ulcer disease presented with mechanical fall complicated left foot fracture Mechanical fall with left foot fracture PT rec SNF pain management w Tramadol prn, tylenol Headach PRN Fiorecit Diabetes Continue glipizide, Januvia, Jardiance, monitor POC Vascular dementia w cognitive impairment Stable, guardianship pending Peptic ulcer disease Continue omeprazole DVT prophylaxis with Lovenox Full Code reason for continued hospitalization: Awaiting guardianship and placement Quality Stroke Does the patient have a stroke diagnosis?: No VTE Prior VTE?: No VTE Risk Level:: Medical - moderate - high VTE Device Contraindication: Treatment Not Indicated VTE Drug Contraindication: N/A - Med Ordered
[2024-04-11 11:09] LABS: Glucose, Whole Blood 129 mg/dL (60-115)
[2024-04-11 16:00] VITALS: BP 121/61; PULSE 91; RESP 18; TEMP 36.3; O2SAT 98
[2024-04-11 17:17] LABS: Glucose, Whole Blood 209 mg/dL (60-115)
[2024-04-11 20:48] LABS: Glucose, Whole Blood 149 mg/dL (60-115)
[2024-04-11] MEDS: Enoxaparin Sodium 40 MG/0.4 ML SYRINGE SUBCUT (20:56)
[2024-04-11] MEDS: Atorvastatin Calcium 10 MG TABLET PO (20:56)
[2024-04-11] MEDS: Melatonin 3 MG TABLET PO (20:56)
[2024-04-11] MEDS: Fluticasone Propionate Nasal 16 GM SPRAY 1 SPRAY NOSTRIL-B (20:57)
[2024-04-12] VITALS: BP 129/63; PULSE 76; RESP 16; TEMP 36; O2SAT 100
[2024-04-12] MEDS: Omeprazole 20 MG CAPSULE.DR PO (06:05)
[2024-04-12] MEDS: traMADoL HCL 50 MG TABLET 25 MG PO ×2 (06:05→22:23)
[2024-04-12 07:25] LABS: Glucose, Whole Blood 83 mg/dL (60-115)
[2024-04-12 07:29] VITALS: BP 134/68; PULSE 87; RESP 20; TEMP 37.1; O2SAT 96
--- NOTE | 2024-04-12 08:22 | P.PNIM_ITS ---
Subjective Subjective Date of Service: 04/12/24 Interval History: Seen and evaluated this morning alert and interactive no complaints Review of Systems Review of Systems: Yes all other systems are reviewed and are negative Physical Exam 2 Vital Signs: Vital Signs: Last Vital Signs Temp 98.7 F 04/12/24 07:29 Pulse 87 04/12/24 07:29 Resp 20 04/12/24 07:29 BP 134/68 04/12/24 07:29 Pulse Ox 96 04/12/24 07:29 O2 Del Method Room Air 04/12/24 07:29 BMI result Body Mass Index 24.5 Const: Other: Constitutional : interactive, not in distress Cardiovascular : no JVP, no lower extremity edema Respiratory : bilateral chest movement, not in resp distress Gastrointestinal: soft, lax, Non tender Skin : Warm, Dry Neurological : Alert, no focal deficit Objective Data Active Medications Acetaminophen (Acetaminophen 325 Mg Tablet) 650 mg PO Q4H PRN PRN Reason: headache or pain Last Admin: 03/31/24 22:07 Dose: 650 mg Documented By: HILARIO Acetaminophen/Butalbital/Caffeine (Butalb/Acetamin/Caff 50/325/40 Tablet) 1 tab PO Q4H PRN PRN Reason: Headache Last Admin: 04/11/24 09:09 Dose: 1 tab Documented By: ADAN Amitriptyline HCl (Amitriptyline Hcl 25 Mg Tablet) 25 mg PO BEDTIME [facility] Last Admin: 04/11/24 21:05 Dose: Not Given Documented By: AUSTIN Non-Admin Reason: Patient Refused Aspirin (Aspirin Enteric Coated 81 Mg Tablet.) 81 mg PO DAILY [facility] Last Admin: 04/11/24 09:09 Dose: 81 mg Documented By: ADAN Atorvastatin Calcium (Atorvastatin Calcium 10 Mg Tablet) 10 mg PO BEDTIME [facility] Last Admin: 04/11/24 20:56 Dose: 10 mg Documented By: AUSTIN Empagliflozin (Empagliflozin 10 Mg Tablet) 10 mg PO DAILY [facility] Last Admin: 04/11/24 09:09 Dose: 10 mg Documented By: ADAN Enoxaparin Sodium (Enoxaparin Sodium 40 Mg/0.4 Ml Syringe) 40 mg SUBCUT Q24H [facility] Last Admin: 04/11/24 20:56 Dose: 40 mg Documented By: AUSTIN Fluticasone Propionate (Fluticasone Propionate Nasal 16 Gm [place]) 1 spray NOSTRIL-B BID [facility] Last Admin: 04/11/24 20:57 Dose: 1 spray Documented By: AUSTIN Glipizide (Glipizide 10 Mg Tablet) 10 mg PO BID [facility] Last Admin: 04/11/24 20:56 Dose: 10 mg Documented By: AUSTIN Lactulose (Lactulose 20 Gm/30 Ml Solution) 20 gm PO BID [facility] Last Admin: 04/11/24 21:05 Dose: Not Given Documented By: [place]IN Non-Admin Reason: Patient Refused Melatonin (Melatonin 3 Mg Tablet) 3 mg PO BEDTIME PRN PRN Reason: Insomnia Last Admin: 04/11/24 20:56 Dose: 3 mg Documented By: AUSTIN Nitroglycerin (Nitroglycerin 0.4 Mg Tab.Subl) 0.4 mg SUBLINGUAL Q5M PRN PRN Reason: angina Omeprazole (Omeprazole 20 Mg Capsule.Dr) 20 mg PO DAILY@0630 [facility] Last Admin: 04/12/24 06:05 Dose: 20 mg Documented By: AUSTIN Sitagliptin Phosphate (Sitagliptin Phosphate 100 Mg Tablet) 100 mg PO DAILY [facility] Last Admin: 04/11/24 09:09 Dose: 100 mg Documented By: MONFETE Sodium Chloride (0.9 % Sodium Chloride Flush 3 Ml Syringe) 3 ml IVFLUSH QSHIFT [facility] Last Admin: 04/11/24 21:02 Dose: 3 ml Documented By: AUSTIN Tramadol HCl (Tramadol Hcl 50 Mg Tablet) 25 mg PO Q6H PRN PRN Reason: moderate pain Last Admin: 04/12/24 06:05 Dose: 25 mg Documented By: AUSTIN Labs 03/24/24 16:45 Labs: Laboratory Results - last 24 hr 04/11/24 04/11/24 04/11/24 11:04 17:11 20:41 POC Glucose 129 H 209 H 149 H 04/12/24 07:10 POC Glucose 83 Assessment and Plan (1) Cognitive impairment: Status: Acute Plan 88F PMH vascular dementia, diabetes, hypertension, hyperlipidemia, peptic ulcer disease presented with mechanical fall complicated left foot fracture Mechanical fall with left foot fracture PT rec SNF pain management w Tramadol prn, tylenol Headach PRN Fiorecit Diabetes Continue glipizide, Januvia, Jardiance, monitor POC Vascular dementia w cognitive impairment Stable, guardianship pending Peptic ulcer disease Continue omeprazole DVT prophylaxis with Lovenox Full Code reason for continued hospitalization: Awaiting guardianship and placement Quality Stroke Does the patient have a stroke diagnosis?: No VTE Prior VTE?: No VTE Risk Level:: Medical - moderate - high VTE Device Contraindication: Treatment Not Indicated VTE Drug Contraindication: N/A - Med Ordered
[2024-04-12] MEDS: glipiZIDE 10 MG TABLET PO ×2 (08:26→22:02)
[2024-04-12] MEDS: Aspirin Enteric Coated 81 MG TABLET.DR PO (08:26)
[2024-04-12] MEDS: Butalb/Acetamin/Caff 50/325/40 TABLET 1 TAB PO (08:26)
[2024-04-12] MEDS: Empagliflozin 10 MG TABLET PO (08:26)
[2024-04-12] MEDS: SITagliptin Phosphate 100 MG TABLET PO (08:26)
[2024-04-12] MEDS: Lactulose 20 GM/30 ML SOLUTION PO (08:27)
[2024-04-12] MEDS: Fluticasone Propionate Nasal 16 GM SPRAY 1 SPRAY NOSTRIL-B (08:29)
--- NOTE | 2024-04-12 08:56 | MHC.CM.PN ---
Addendum entered by Vonnie Ko RN 04/12/24 09:03: PT EVAL PENDING, [facility] WILL TAKE PT IN UNDER MEDICARE AND THEN TRANSITION TO LTC IF RECOMMENDED STR. Original Note: EMR REVIEWED, [facility] SHOWING INTEREST, [facility] REACHING OUT TO GUARDIAN AND CM AWAITING TO FIND OUT HOW IT WENT AND IF THEY WILL OFFER A BED, CM WILL CONT TO FOLLOW DC NEEDS.
[2024-04-12 11:07] LABS: Glucose, Whole Blood 321 mg/dL (60-115)
[2024-04-12 11:54] VITALS: BP 134/68; PULSE 87; O2SAT 96
[2024-04-12 15:08] VITALS: BP 106/49; PULSE 88; RESP 18; TEMP 36.6; O2SAT 98
[2024-04-12] MEDS: Enoxaparin Sodium 40 MG/0.4 ML SYRINGE SUBCUT (17:54)
[2024-04-12 21:02] LABS: Glucose, Whole Blood 227 mg/dL (60-115)
[2024-04-12] MEDS: Atorvastatin Calcium 10 MG TABLET PO (22:02)
[2024-04-13] VITALS: BP 116/70; PULSE 99; RESP 16; TEMP 36.6; O2SAT 97
[2024-04-13] MEDS: Omeprazole 20 MG CAPSULE.DR PO (05:51)
[2024-04-13 07:38] VITALS: BP 135/66; PULSE 83; RESP 20; TEMP 37; O2SAT 98
[2024-04-13 07:38] LABS: Glucose, Whole Blood 102 mg/dL (60-115)
[2024-04-13] MEDS: traMADoL HCL 50 MG TABLET 25 MG PO (08:08)
[2024-04-13] MEDS: glipiZIDE 10 MG TABLET PO ×2 (08:09→20:24)
[2024-04-13] MEDS: SITagliptin Phosphate 100 MG TABLET PO (08:09)
[2024-04-13] MEDS: Empagliflozin 10 MG TABLET PO (08:09)
[2024-04-13] MEDS: Aspirin Enteric Coated 81 MG TABLET.DR PO (08:09)
[2024-04-13] MEDS: Fluticasone Propionate Nasal 16 GM SPRAY 1 SPRAY NOSTRIL-B (08:16)
--- NOTE | 2024-04-13 08:27 | HO.PM.IMPN ---
Subjective Subjective Date of Service: 04/13/24 Interval History: no complaints Physical Exam Vital Signs: Vital Signs: Last Vital Signs Temp 98.6 F 04/13/24 07:38 Pulse 83 04/13/24 07:38 Resp 20 04/13/24 07:38 BP 135/66 04/13/24 07:38 Pulse Ox 98 04/13/24 07:38 O2 Del Method Room Air 04/13/24 07:38 BMI result Body Mass Index 24.5 Const: Other: Constitutional : interactive, not in distress Cardiovascular : no JVP, no lower extremity edema Respiratory : bilateral chest movement, not in resp distress Gastrointestinal: soft, lax, Non tender Skin : Warm, Dry Neurological : Alert, no focal deficit Objective Data Active Medications Acetaminophen (Acetaminophen 325 Mg Tablet) 650 mg PO Q4H PRN PRN Reason: headache or pain Last Admin: 03/31/24 22:07 Dose: 650 mg Documented By: HILARIO Acetaminophen/Butalbital/Caffeine (Butalb/Acetamin/Caff 50/325/40 Tablet) 1 tab PO Q4H PRN PRN Reason: Headache Last Admin: 04/12/24 08:26 Dose: 1 tab Documented By: ADAN Amitriptyline HCl (Amitriptyline Hcl 25 Mg Tablet) 25 mg PO BEDTIME [facility] Last Admin: 04/12/24 22:02 Dose: Not Given Documented By: AUSTIN Non-Admin Reason: Patient Refused Aspirin (Aspirin Enteric Coated 81 Mg Tablet.) 81 mg PO DAILY [facility] Last Admin: 04/13/24 08:09 Dose: 81 mg Documented By: HONG Atorvastatin Calcium (Atorvastatin Calcium 10 Mg Tablet) 10 mg PO BEDTIME [facility] Last Admin: 04/12/24 22:02 Dose: 10 mg Documented By: AUSTIN Empagliflozin (Empagliflozin 10 Mg Tablet) 10 mg PO DAILY [facility] Last Admin: 04/13/24 08:09 Dose: 10 mg Documented By: HONG Enoxaparin Sodium (Enoxaparin Sodium 40 Mg/0.4 Ml Syringe) 40 mg SUBCUT Q24H [facility] Last Admin: 04/12/24 17:54 Dose: 40 mg Documented By: ADAN Fluticasone Propionate (Fluticasone Propionate Nasal 16 Gm [place]) 1 spray NOSTRIL-B BID [facility] Last Admin: 04/13/24 08:16 Dose: 1 spray Documented By: HONG Glipizide (Glipizide 10 Mg Tablet) 10 mg PO BID [facility] Last Admin: 04/13/24 08:09 Dose: 10 mg Documented By: HONG Lactulose (Lactulose 20 Gm/30 Ml Solution) 20 gm PO BID [facility] Last Admin: 04/13/24 08:17 Dose: Not Given Documented By: HONG Non-Admin Reason: Patient Refused Melatonin (Melatonin 3 Mg Tablet) 3 mg PO BEDTIME PRN PRN Reason: Insomnia Last Admin: 04/11/24 20:56 Dose: 3 mg Documented By: AUSTIN Nitroglycerin (Nitroglycerin 0.4 Mg Tab.Subl) 0.4 mg SUBLINGUAL Q5M PRN PRN Reason: angina Omeprazole (Omeprazole 20 Mg Capsule.Dr) 20 mg PO DAILY@0630 [facility] Last Admin: 04/13/24 05:51 Dose: 20 mg Documented By: AUSTIN Sitagliptin Phosphate (Sitagliptin Phosphate 100 Mg Tablet) 100 mg PO DAILY [facility] Last Admin: 04/13/24 08:09 Dose: 100 mg Documented By: HONG Sodium Chloride (0.9 % Sodium Chloride Flush 3 Ml Syringe) 3 ml IVFLUSH QSHIFT [facility] Last Admin: 04/13/24 08:10 Dose: Not Given Documented By: HONG Non-Admin Reason: No Access Tramadol HCl (Tramadol Hcl 50 Mg Tablet) 25 mg PO Q6H PRN PRN Reason: moderate pain Last Admin: 04/13/24 08:08 Dose: 25 mg Documented By: HONG Labs 03/24/24 16:45 Labs: Laboratory Results - last 24 hr 04/12/24 04/12/24 04/13/24 10:59 20:51 07:27 POC Glucose 321 H 227 H 102 Assessment and Plan (1) Cognitive impairment: Status: Acute Plan 88F PMH vascular dementia, diabetes, hypertension, hyperlipidemia, peptic ulcer disease presented with mechanical fall complicated left foot fracture Mechanical fall with left foot fracture PT rec SNF pain management w Tramadol prn, tylenol Headach PRN Fiorecit Diabetes Continue glipizide, Januvia, Jardiance, monitor POC Vascular dementia w cognitive impairment Stable, guardianship pending Peptic ulcer disease Continue omeprazole DVT prophylaxis with Lovenox Full Code reason for continued hospitalization: Awaiting guardianship and placement Quality Stroke Does the patient have a stroke diagnosis?: No VTE Prior VTE?: No VTE Risk Level:: Medical - moderate - high VTE Device Contraindication: Treatment Not Indicated VTE Drug Contraindication: N/A - Med Ordered
[2024-04-13] MEDS: Butalb/Acetamin/Caff 50/325/40 TABLET 1 TAB PO ×2 (09:33→15:58)
[2024-04-13 11:05] LABS: Glucose, Whole Blood 186 mg/dL (60-115)
--- NOTE | 2024-04-13 11:38 | MHC.CM.PN ---
EMR REVIEWED, CM DISCUSSED CASE W/[facility] LIAISON WHO IS WILLING TO OFFER A BED HOWEVER NOW THAT PT IS ON STRAIGHT MEDICARE OF 04/02/24 SHE IS UNABLE TO DC TO STR W/TRANSITION TO LTC SHE IS ON OBSERVATION AND DOES NOT HAVE A QUALIFYING STAY. PER [facility] THEY WILL NEED TO WAIT UNTIL [facility] IS SUBMITTED AND PENDING, LIAISON HAS BEEN IN CONTACT W/PT'S GUARDIAN.
[2024-04-13 15:12] VITALS: BP 107/62; PULSE 79; RESP 20; TEMP 36.8; O2SAT 99
[2024-04-13 16:21] LABS: Glucose, Whole Blood 215 mg/dL (60-115)
[2024-04-13 19:31] VITALS: BP 112/74; PULSE 91; RESP 17; TEMP 37.1; O2SAT 98
[2024-04-13 20:01] LABS: Glucose, Whole Blood 257 mg/dL (60-115)
[2024-04-13] MEDS: Enoxaparin Sodium 40 MG/0.4 ML SYRINGE SUBCUT (20:24)
[2024-04-13] MEDS: Melatonin 3 MG TABLET PO (20:24)
[2024-04-13] MEDS: Atorvastatin Calcium 10 MG TABLET PO (20:24)
[2024-04-14 07:23] LABS: Glucose, Whole Blood 122 mg/dL (60-115)
[2024-04-14 08:00] VITALS: BP 133/70; PULSE 84; RESP 20; TEMP 36.4; O2SAT 98
[2024-04-14] MEDS: Lactulose 20 GM/30 ML SOLUTION PO ×2 (09:20→21:40)
[2024-04-14] MEDS: Aspirin Enteric Coated 81 MG TABLET.DR PO (09:20)
[2024-04-14] MEDS: Omeprazole 20 MG CAPSULE.DR PO (09:20)
[2024-04-14] MEDS: Empagliflozin 10 MG TABLET PO (09:20)
[2024-04-14] MEDS: SITagliptin Phosphate 100 MG TABLET PO (09:21)
[2024-04-14] MEDS: glipiZIDE 10 MG TABLET PO ×2 (09:21→21:40)
[2024-04-14] MEDS: Butalb/Acetamin/Caff 50/325/40 TABLET 1 TAB PO (09:27)
--- NOTE | 2024-04-14 10:51 | P.PNIM_ITS ---
Subjective Subjective Date of Service: 04/14/24 Interval History: Seen and evaluated this morning alert and interactive no complaints Physical Exam 2 Vital Signs: Vital Signs: Last Vital Signs Temp 97.6 F 04/14/24 08:00 Pulse 84 04/14/24 08:00 Resp 20 04/14/24 08:00 BP 133/70 04/14/24 08:00 Pulse Ox 98 04/14/24 08:00 O2 Del Method Room Air 04/14/24 08:00 BMI result Body Mass Index 24.5 Const: Other: Constitutional : interactive, not in distress Cardiovascular : no JVP, no lower extremity edema Respiratory : bilateral chest movement, not in resp distress Gastrointestinal: soft, lax, Non tender Skin : Warm, Dry Neurological : Alert, no focal deficit Objective Data Active Medications Acetaminophen (Acetaminophen 325 Mg Tablet) 650 mg PO Q4H PRN PRN Reason: headache or pain Last Admin: 03/31/24 22:07 Dose: 650 mg Documented By: HILARIO Acetaminophen/Butalbital/Caffeine (Butalb/Acetamin/Caff 50/325/40 Tablet) 1 tab PO Q4H PRN PRN Reason: Headache Last Admin: 04/14/24 09:27 Dose: 1 tab Documented By: ALIDA Amitriptyline HCl (Amitriptyline Hcl 25 Mg Tablet) 25 mg PO BEDTIME [facility] Last Admin: 04/13/24 20:24 Dose: Not Given Documented By: LEIGHA Non-Admin Reason: Patient Refused Aspirin (Aspirin Enteric Coated 81 Mg Tablet.) 81 mg PO DAILY [facility] Last Admin: 04/14/24 09:20 Dose: 81 mg Documented By: ALIDA Atorvastatin Calcium (Atorvastatin Calcium 10 Mg Tablet) 10 mg PO BEDTIME [facility] Last Admin: 04/13/24 20:24 Dose: 10 mg Documented By: LEIGHA Empagliflozin (Empagliflozin 10 Mg Tablet) 10 mg PO DAILY [facility] Last Admin: 04/14/24 09:20 Dose: 10 mg Documented By: ALIDA Enoxaparin Sodium (Enoxaparin Sodium 40 Mg/0.4 Ml Syringe) 40 mg SUBCUT Q24H [facility] Last Admin: 04/13/24 20:24 Dose: 40 mg Documented By: LEIGHA Fluticasone Propionate (Fluticasone Propionate Nasal 16 Gm [place]) 1 spray NOSTRIL-B BID [facility] Last Admin: 04/13/24 20:25 Dose: Not Given Documented By: LEIGHA Non-Admin Reason: Patient Refused Glipizide (Glipizide 10 Mg Tablet) 10 mg PO BID [facility] Last Admin: 04/14/24 09:21 Dose: 10 mg Documented By: ALIDA Lactulose (Lactulose 20 Gm/30 Ml Solution) 20 gm PO BID [facility] Last Admin: 04/14/24 09:20 Dose: 20 gm Documented By: ALIDA Melatonin (Melatonin 3 Mg Tablet) 3 mg PO BEDTIME PRN PRN Reason: Insomnia Last Admin: 04/13/24 20:24 Dose: 3 mg Documented By: LEIGHA Nitroglycerin (Nitroglycerin 0.4 Mg Tab.Subl) 0.4 mg SUBLINGUAL Q5M PRN PRN Reason: angina Omeprazole (Omeprazole 20 Mg Capsule.Dr) 20 mg PO DAILY@0630 [facility] Last Admin: 04/14/24 09:20 Dose: 20 mg Documented By: ALIDA Sitagliptin Phosphate (Sitagliptin Phosphate 100 Mg Tablet) 100 mg PO DAILY [facility] Last Admin: 04/14/24 09:21 Dose: 100 mg Documented By: ALIDA Sodium Chloride (0.9 % Sodium Chloride Flush 3 Ml Syringe) 3 ml IVFLUSH QSHIFT [facility] Last Admin: 04/14/24 09:23 Dose: Not Given Documented By: ALIDA Non-Admin Reason: No Access Tramadol HCl (Tramadol Hcl 50 Mg Tablet) 25 mg PO Q6H PRN PRN Reason: moderate pain Last Admin: 04/13/24 08:08 Dose: 25 mg Documented By: HONG Labs 03/24/24 16:45 Labs: Laboratory Results - last 24 hr 04/13/24 04/13/24 04/13/24 10:49 16:11 19:55 POC Glucose 186 H 215 H 257 H 04/14/24 07:19 POC Glucose 122 H Assessment and Plan (1) Cognitive impairment: Status: Acute Plan 88F PMH vascular dementia, diabetes, hypertension, hyperlipidemia, peptic ulcer disease presented with mechanical fall complicated left foot fracture Mechanical fall with left foot fracture PT rec SNF pain management w Tramadol prn, tylenol Headach PRN Fiorecit Diabetes Continue glipizide, Januvia, Jardiance, monitor POC Vascular dementia w cognitive impairment Stable, guardianship pending Peptic ulcer disease Continue omeprazole DVT prophylaxis with Lovenox Full Code reason for continued hospitalization: Awaiting guardianship and placement Quality Stroke Does the patient have a stroke diagnosis?: No VTE Prior VTE?: No VTE Risk Level:: Medical - moderate - high VTE Device Contraindication: Treatment Not Indicated VTE Drug Contraindication: N/A - Med Ordered
[2024-04-14 11:07] LABS: Glucose, Whole Blood 202 mg/dL (60-115)
--- NOTE | 2024-04-14 11:45 | MHC.CM.PN ---
EMR REVIEWED, PT W/DEMENTIA UNDER GUARDIANSHIP WILL NEED LTC PACEMENT, [facility] AND [facility] FOLLOWING, [facility] HAS BEEN IN CONTACT W/GUARDIAN AND FOLLOWING HOWEVER PT WILL NEED [facility] SUBMITTED/PENDING PRIOR TO ACCEPTANCE, CM WILL CONT TO FOLLOW.
[2024-04-14] MEDS: Fluticasone Propionate Nasal 16 GM SPRAY 1 SPRAY NOSTRIL-B (13:31)
[2024-04-14] MEDS: Butalb/Acetamin/Caff 50/325/40 TABLET 2 TAB PO (13:33)
[2024-04-14 15:59] VITALS: BP 136/76; PULSE 100; RESP 20; TEMP 36.6; O2SAT 100
[2024-04-14 16:25] LABS: Glucose, Whole Blood 196 mg/dL (60-115)
[2024-04-14] MEDS: Enoxaparin Sodium 40 MG/0.4 ML SYRINGE SUBCUT (18:08)
[2024-04-14 20:14] VITALS: BP 104/76; PULSE 87; RESP 18; TEMP 36.8; O2SAT 98
[2024-04-14 20:51] LABS: Glucose, Whole Blood 172 mg/dL (60-115)
[2024-04-14] MEDS: Atorvastatin Calcium 10 MG TABLET PO (21:39)
[2024-04-14] MEDS: Melatonin 3 MG TABLET PO (21:39)
[2024-04-15] VITALS: BP 120/57; PULSE 84; RESP 18; TEMP 36.5; O2SAT 93
[2024-04-15] MEDS: Butalb/Acetamin/Caff 50/325/40 TABLET 1 TAB PO (06:23)
[2024-04-15 07:54] LABS: Glucose, Whole Blood 91 mg/dL (60-115)
[2024-04-15 07:59] VITALS: BP 132/72; PULSE 85; RESP 19; TEMP 36.7; O2SAT 97
[2024-04-15] MEDS: glipiZIDE 10 MG TABLET PO ×2 (08:59→19:22)
[2024-04-15] MEDS: Empagliflozin 10 MG TABLET PO (08:59)
[2024-04-15] MEDS: SITagliptin Phosphate 100 MG TABLET PO (08:59)
[2024-04-15] MEDS: Aspirin Enteric Coated 81 MG TABLET.DR PO (08:59)
[2024-04-15] MEDS: Fluticasone Propionate Nasal 16 GM SPRAY 1 SPRAY NOSTRIL-B ×2 (08:59→19:22)
[2024-04-15] MEDS: Lactulose 20 GM/30 ML SOLUTION PO ×2 (08:59→19:22)
--- NOTE | 2024-04-15 10:23 | HO.PM.IMPN ---
Subjective Subjective Date of Service: 04/15/24 Interval History: Seen and evaluated this morning alert and interactive no complaints Physical Exam Vital Signs: Vital Signs: Last Vital Signs Temp 98.0 F 04/15/24 07:59 Pulse 85 04/15/24 07:59 Resp 19 04/15/24 07:59 BP 132/72 04/15/24 07:59 Pulse Ox 97 04/15/24 07:59 O2 Del Method Room Air 04/15/24 07:59 BMI result Body Mass Index 24.5 Const: Other: Constitutional : interactive, not in distress Cardiovascular : no JVP, no lower extremity edema Respiratory : bilateral chest movement, not in resp distress Gastrointestinal: soft, lax, Non tender Skin : Warm, Dry Neurological : Alert, no focal deficit Objective Data Active Medications Acetaminophen (Acetaminophen 325 Mg Tablet) 650 mg PO Q4H PRN PRN Reason: headache or pain Last Admin: 03/31/24 22:07 Dose: 650 mg Documented By: HILARIO Acetaminophen/Butalbital/Caffeine (Butalb/Acetamin/Caff 50/325/40 Tablet) 1 tab PO Q4H PRN PRN Reason: Headache Last Admin: 04/15/24 06:23 Dose: 1 tab Documented By: SHAISTA Amitriptyline HCl (Amitriptyline Hcl 25 Mg Tablet) 25 mg PO BEDTIME [facility] Last Admin: 04/14/24 21:45 Dose: Not Given Documented By: SHAISTA Non-Admin Reason: Patient Refused Aspirin (Aspirin Enteric Coated 81 Mg Tablet.) 81 mg PO DAILY [facility] Last Admin: 04/15/24 08:59 Dose: 81 mg Documented By: GIL Atorvastatin Calcium (Atorvastatin Calcium 10 Mg Tablet) 10 mg PO BEDTIME [facility] Last Admin: 04/14/24 21:39 Dose: 10 mg Documented By: SHAISTA Empagliflozin (Empagliflozin 10 Mg Tablet) 10 mg PO DAILY [facility] Last Admin: 04/15/24 08:59 Dose: 10 mg Documented By: GIL Enoxaparin Sodium (Enoxaparin Sodium 40 Mg/0.4 Ml Syringe) 40 mg SUBCUT Q24H [facility] Last Admin: 04/14/24 18:08 Dose: 40 mg Documented By: ALIDA Fluticasone Propionate (Fluticasone Propionate Nasal 16 Gm [place]) 1 spray NOSTRIL-B BID [facility] Last Admin: 04/15/24 08:59 Dose: 1 spray Documented By: GIL Glipizide (Glipizide 10 Mg Tablet) 10 mg PO BID [facility] Last Admin: 04/15/24 08:59 Dose: 10 mg Documented By: GIL Lactulose (Lactulose 20 Gm/30 Ml Solution) 20 gm PO BID [facility] Last Admin: 04/15/24 08:59 Dose: 20 gm Documented By: GIL Melatonin (Melatonin 3 Mg Tablet) 3 mg PO BEDTIME PRN PRN Reason: Insomnia Last Admin: 04/14/24 21:39 Dose: 3 mg Documented By: LAFLAMC Nitroglycerin (Nitroglycerin 0.4 Mg Tab.Subl) 0.4 mg SUBLINGUAL Q5M PRN PRN Reason: angina Omeprazole (Omeprazole 20 Mg Capsule.Dr) 20 mg PO DAILY@0630 [facility] Last Admin: 04/14/24 09:20 Dose: 20 mg Documented By: ALIDA Sitagliptin Phosphate (Sitagliptin Phosphate 100 Mg Tablet) 100 mg PO DAILY [facility] Last Admin: 04/15/24 08:59 Dose: 100 mg Documented By: GIL Sodium Chloride (0.9 % Sodium Chloride Flush 3 Ml Syringe) 3 ml IVFLUSH QSHIFT [facility] Last Admin: 04/15/24 09:06 Dose: Not Given Documented By: GIL Non-Admin Reason: No IV access Tramadol HCl (Tramadol Hcl 50 Mg Tablet) 25 mg PO Q6H PRN PRN Reason: moderate pain Last Admin: 04/13/24 08:08 Dose: 25 mg Documented By: CHEKOARTB Labs 03/24/24 16:45 Labs: Laboratory Results - last 24 hr 04/14/24 04/14/24 04/14/24 11:00 16:16 20:38 POC Glucose 202 H 196 H 172 H 04/15/24 07:42 POC Glucose 91 Assessment and Plan (1) Cognitive impairment: Status: Acute Plan 88F PMH vascular dementia, diabetes, hypertension, hyperlipidemia, peptic ulcer disease presented with mechanical fall complicated left foot fracture Mechanical fall with left foot fracture PT rec SNF pain management w Tramadol prn, tylenol Headach PRN Fiorecit Diabetes Continue glipizide, Januvia, Jardiance, monitor POC Vascular dementia w cognitive impairment Stable, guardianship pending Peptic ulcer disease Continue omeprazole DVT prophylaxis with Lovenox Full Code reason for continued hospitalization: Awaiting guardianship and placement Quality Stroke Does the patient have a stroke diagnosis?: No VTE Prior VTE?: No VTE Risk Level:: Medical - moderate - high VTE Device Contraindication: Treatment Not Indicated VTE Drug Contraindication: N/A - Med Ordered
[2024-04-15 11:42] LABS: Glucose, Whole Blood 196 mg/dL (60-115)
[2024-04-15 15:19] VITALS: BP 132/72; PULSE 85; O2SAT 97
--- NOTE | 2024-04-15 15:24 | MHC.CM.PN ---
KANNAN REVIEWED, CM REACHED OUT TO PT'S GUARDIAN DELIO LINDSEY VIA EMAIL TO CHECK ON STATUS OF [facility], CM RECEIVE RESPONSE FROM DELIO REPORTING SHE HAS AN APPT TOMORROW 04/16 AT PT'S BANK TO OBTAIN BANK STATEMENTS AND AFTERWARDS WILL HAVE ALL DOCUMENTS NEEDED FOR MH APPLICATION, [facility] FOLLOWING AND DELIO AGREEABLE, CM WILL CONT TO FOLLOW DC NEEDS.
[2024-04-15 16:00] VITALS: BP 110/54; PULSE 80; RESP 18; TEMP 36.6; O2SAT 98
[2024-04-15 16:16] LABS: Glucose, Whole Blood 212 mg/dL (60-115)
[2024-04-15] MEDS: traMADoL HCL 50 MG TABLET 25 MG PO (17:14)
[2024-04-15] MEDS: Atorvastatin Calcium 10 MG TABLET PO (19:22)
[2024-04-15] MEDS: Enoxaparin Sodium 40 MG/0.4 ML SYRINGE SUBCUT (19:22)
[2024-04-15] MEDS: Melatonin 3 MG TABLET PO (19:23)
[2024-04-15] MEDS: Lidocaine 4 % Patch ADH..PATCH 2 PATCH TRANSDERMA (19:23)
[2024-04-15 19:41] VITALS: BP 124/58; PULSE 86; RESP 18; TEMP 36.9; O2SAT 98
[2024-04-15 20:33] LABS: Glucose, Whole Blood 203 mg/dL (60-115)
[2024-04-15 23:49] VITALS: BP 127/65; PULSE 79; RESP 16; TEMP 36.3; O2SAT 97
[2024-04-16] MEDS: Omeprazole 20 MG CAPSULE.DR PO (05:50)
[2024-04-16] MEDS: Butalb/Acetamin/Caff 50/325/40 TABLET 1 TAB PO (06:40)
[2024-04-16 07:37] LABS: Glucose, Whole Blood 95 mg/dL (60-115)
[2024-04-16 08:00] VITALS: BP 138/65; PULSE 82; RESP 20; TEMP 36.1; O2SAT 97
[2024-04-16] MEDS: Lactulose 20 GM/30 ML SOLUTION PO ×2 (09:12→19:47)
[2024-04-16] MEDS: Lidocaine 4 % Patch ADH..PATCH 2 PATCH TRANSDERMA (09:12)
[2024-04-16] MEDS: Fluticasone Propionate Nasal 16 GM SPRAY 1 SPRAY NOSTRIL-B (09:12)
[2024-04-16] MEDS: Aspirin Enteric Coated 81 MG TABLET.DR PO (09:13)
[2024-04-16] MEDS: Empagliflozin 10 MG TABLET PO (09:13)
[2024-04-16] MEDS: glipiZIDE 10 MG TABLET PO ×2 (09:13→19:46)
[2024-04-16] MEDS: SITagliptin Phosphate 100 MG TABLET PO (09:13)
--- NOTE | 2024-04-16 09:39 | HO.PM.IMPN ---
Subjective Subjective Date of Service: 04/16/24 Interval History: Seen and evaluated this morning alert and interactive, having breakfast no complaints Review of Systems Review of Systems: Yes all other systems are reviewed and are negative Physical Exam Vital Signs: Vital Signs: Last Vital Signs Temp 96.9 F 04/16/24 08:00 Pulse 82 04/16/24 08:00 Resp 20 04/16/24 08:00 BP 138/65 04/16/24 08:00 Pulse Ox 97 04/16/24 08:00 O2 Del Method Room Air 04/16/24 08:00 BMI result Body Mass Index 24.5 Const: Other: Constitutional : interactive, not in distress Cardiovascular : no JVP, no lower extremity edema Respiratory : bilateral chest movement, not in resp distress Gastrointestinal: soft, lax, Non tender Skin : Warm, Dry Neurological : Alert, no focal deficit Objective Data Active Medications Acetaminophen (Acetaminophen 325 Mg Tablet) 650 mg PO Q4H PRN PRN Reason: headache or pain Last Admin: 03/31/24 22:07 Dose: 650 mg Documented By: HILARIO Acetaminophen/Butalbital/Caffeine (Butalb/Acetamin/Caff 50/325/40 Tablet) 1 tab PO Q4H PRN PRN Reason: Headache Last Admin: 04/16/24 06:40 Dose: 1 tab Documented By: SHAISTA Amitriptyline HCl (Amitriptyline Hcl 25 Mg Tablet) 25 mg PO BEDTIME [facility] Last Admin: 04/15/24 21:36 Dose: Not Given Documented By: SHAISTA Non-Admin Reason: Patient Refused Aspirin (Aspirin Enteric Coated 81 Mg Tablet.) 81 mg PO DAILY [facility] Last Admin: 04/16/24 09:13 Dose: 81 mg Documented By: GIL Atorvastatin Calcium (Atorvastatin Calcium 10 Mg Tablet) 10 mg PO BEDTIME [facility] Last Admin: 04/15/24 19:22 Dose: 10 mg Documented By: SHAISTA Empagliflozin (Empagliflozin 10 Mg Tablet) 10 mg PO DAILY [facility] Last Admin: 04/16/24 09:13 Dose: 10 mg Documented By: GIL Enoxaparin Sodium (Enoxaparin Sodium 40 Mg/0.4 Ml Syringe) 40 mg SUBCUT Q24H [facility] Last Admin: 04/15/24 19:22 Dose: 40 mg Documented By: SHAISTA Fluticasone Propionate (Fluticasone Propionate Nasal 16 Gm [place]) 1 spray NOSTRIL-B BID [facility] Last Admin: 04/16/24 09:12 Dose: 1 spray Documented By: GIL Glipizide (Glipizide 10 Mg Tablet) 10 mg PO BID [facility] Last Admin: 04/16/24 09:13 Dose: 10 mg Documented By: GIL Lactulose (Lactulose 20 Gm/30 Ml Solution) 20 gm PO BID [facility] Last Admin: 04/16/24 09:12 Dose: 20 gm Documented By: GIL Lidocaine (Lidocaine 4 % Patch Adh..Patch) 2 patch TRANSDERMA DAILY [facility]; Protocol Last Admin: 04/16/24 09:12 Dose: 2 patch Documented By: GIL Melatonin (Melatonin 3 Mg Tablet) 3 mg PO BEDTIME PRN PRN Reason: Insomnia Last Admin: 04/15/24 19:23 Dose: 3 mg Documented By: SHAISTA Nitroglycerin (Nitroglycerin 0.4 Mg Tab.Subl) 0.4 mg SUBLINGUAL Q5M PRN PRN Reason: angina Omeprazole (Omeprazole 20 Mg Capsule.Dr) 20 mg PO DAILY@0630 [facility] Last Admin: 04/16/24 05:50 Dose: 20 mg Documented By: SHAISTA Sitagliptin Phosphate (Sitagliptin Phosphate 100 Mg Tablet) 100 mg PO DAILY [facility] Last Admin: 04/16/24 09:13 Dose: 100 mg Documented By: GIL Sodium Chloride (0.9 % Sodium Chloride Flush 3 Ml Syringe) 3 ml IVFLUSH QSHIFT [facility] Last Admin: 04/16/24 09:09 Dose: Not Given Documented By: GIL Non-Admin Reason: No IV access Tramadol HCl (Tramadol Hcl 50 Mg Tablet) 25 mg PO Q6H PRN PRN Reason: moderate pain Last Admin: 04/15/24 17:14 Dose: 25 mg Documented By: GIL Labs 03/24/24 16:45 Labs: Laboratory Results - last 24 hr 04/15/24 04/15/24 04/15/24 11:22 16:09 20:29 POC Glucose 196 H 212 H 203 H 04/16/24 07:33 POC Glucose 95 Assessment and Plan (1) Cognitive impairment: Status: Acute Plan 88F PMH vascular dementia, diabetes, hypertension, hyperlipidemia, peptic ulcer disease presented with mechanical fall complicated left foot fracture Mechanical fall with left foot fracture PT rec SNF pain management w Tramadol prn, tylenol Headach PRN Fiorecit Diabetes Continue glipizide, Januvia, Jardiance, monitor POC Vascular dementia w cognitive impairment Stable, guardianship pending Peptic ulcer disease Continue omeprazole DVT prophylaxis with Lovenox Full Code reason for continued hospitalization: Awaiting guardianship and placement Quality Stroke Does the patient have a stroke diagnosis?: No VTE Prior VTE?: No VTE Risk Level:: Medical - moderate - high VTE Device Contraindication: Treatment Not Indicated VTE Drug Contraindication: N/A - Med Ordered
--- NOTE | 2024-04-16 09:49 | MHC.CM.PN ---
Addendum entered by Vonnie Ko RN 04/16/24 09:55: DELIO ALSO REPORTED SOMEONE HAS BEEN BREAKING INTO PT'S APT, MAILBOX AND CAR. HOUSING AUTHORITY AND [employer] POLICE NOTIFIED. Original Note: CM RECEIVED CALL FROM PT'S GUARDIAN DELIO LINDSEY REPORTING HER APPT AT PT'S [facility] IS AT 1PM AND [facility] SHOULD BE SUBMITTED BY THURSDAY 04/19, DELIO REPORTS PT HAD ALMOST ALL DOCUMENTS KEPT IN A SUITCASE AND GAVE CM A MEDICAID #[id number], CM HAD INSURANCE VERIFICATION CHECK STATUS AND NUMBER IS NOT ACTIVE, DELIO AWARE VIA RETURN CALL AT 9:50AM, [facility] FOLLOWING AND CM WILL CONT TO FOLLOW DC NEEDS.
[2024-04-16 11:01] LABS: Glucose, Whole Blood 186 mg/dL (60-115)
[2024-04-16 11:15] VITALS: BP 127/62; PULSE 82; RESP 20; TEMP 36.4; O2SAT 96
[2024-04-16 15:39] VITALS: BP 100/57; PULSE 83; RESP 16; TEMP 36.1; O2SAT 98
[2024-04-16 15:43] VITALS: BP 100/57; PULSE 83; O2SAT 98
[2024-04-16 16:34] LABS: Glucose, Whole Blood 152 mg/dL (60-115)
[2024-04-16] MEDS: traMADoL HCL 50 MG TABLET 25 MG PO (18:39)
[2024-04-16] MEDS: Atorvastatin Calcium 10 MG TABLET PO (19:46)
[2024-04-16] MEDS: Melatonin 3 MG TABLET PO (19:46)
[2024-04-16] MEDS: Enoxaparin Sodium 40 MG/0.4 ML SYRINGE SUBCUT (19:47)
[2024-04-16 21:17] LABS: Glucose, Whole Blood 171 mg/dL (60-115)
[2024-04-16 23:57] VITALS: BP 147/63; PULSE 82; RESP 16; TEMP 36; O2SAT 100
[2024-04-17] MEDS: traMADoL HCL 50 MG TABLET 25 MG PO ×2 (06:32→15:44)
[2024-04-17] MEDS: Omeprazole 20 MG CAPSULE.DR PO (06:32)
[2024-04-17 07:04] LABS: Glucose, Whole Blood 94 mg/dL (60-115)
[2024-04-17 07:21] VITALS: BP 140/67; PULSE 85; RESP 18; TEMP 36.6; O2SAT 98
[2024-04-17] MEDS: Fluticasone Propionate Nasal 16 GM SPRAY 1 SPRAY NOSTRIL-B ×2 (08:09→20:55)
[2024-04-17] MEDS: Empagliflozin 10 MG TABLET PO (08:09)
[2024-04-17] MEDS: glipiZIDE 10 MG TABLET PO ×2 (08:09→20:41)
[2024-04-17] MEDS: SITagliptin Phosphate 100 MG TABLET PO (08:09)
[2024-04-17] MEDS: Aspirin Enteric Coated 81 MG TABLET.DR PO (08:09)
[2024-04-17] MEDS: Butalb/Acetamin/Caff 50/325/40 TABLET 1 TAB PO ×2 (08:09→20:49)
[2024-04-17] MEDS: Lidocaine 4 % Patch ADH..PATCH 2 PATCH TRANSDERMA (08:11)
[2024-04-17 10:59] LABS: Glucose, Whole Blood 233 mg/dL (60-115)
--- NOTE | 2024-04-17 14:47 | P.PNIM_ITS ---
Subjective Subjective Date of Service: 04/17/24 Interval History: follow up Review of Systems denies any abd pain or sob or new c/o. Physical Exam 2 Vital Signs: Vital Signs: Last Vital Signs Temp 97.9 F 04/17/24 07:21 Pulse 85 04/17/24 07:21 Resp 18 04/17/24 07:21 BP 140/67 H 04/17/24 07:21 Pulse Ox 98 04/17/24 07:21 O2 Del Method Room Air 04/17/24 07:21 BMI result Body Mass Index 24.5 Constitutional : interactive, not in distress Cardiovascular : no JVP, no lower extremity edema Respiratory : bilateral chest movement, not in resp distress Gastrointestinal: soft, lax, Non tender Skin : Warm, Dry Neurological : Alert, no focal deficit Objective Data Active Medications Acetaminophen (Acetaminophen 325 Mg Tablet) 650 mg PO Q4H PRN PRN Reason: headache or pain Last Admin: 03/31/24 22:07 Dose: 650 mg Documented By: HILARIO Acetaminophen/Butalbital/Caffeine (Butalb/Acetamin/Caff 50/325/40 Tablet) 1 tab PO Q4H PRN PRN Reason: Headache Last Admin: 04/17/24 08:09 Dose: 1 tab Documented By: RICHIE Amitriptyline HCl (Amitriptyline Hcl 25 Mg Tablet) 25 mg PO BEDTIME [facility] Last Admin: 04/16/24 19:52 Dose: Not Given Documented By: SANTO Non-Admin Reason: Patient Refused Aspirin (Aspirin Enteric Coated 81 Mg Tablet.) 81 mg PO DAILY [facility] Last Admin: 04/17/24 08:09 Dose: 81 mg Documented By: RICHIE Atorvastatin Calcium (Atorvastatin Calcium 10 Mg Tablet) 10 mg PO BEDTIME [facility] Last Admin: 04/16/24 19:46 Dose: 10 mg Documented By: SANTO Empagliflozin (Empagliflozin 10 Mg Tablet) 10 mg PO DAILY [facility] Last Admin: 04/17/24 08:09 Dose: 10 mg Documented By: RICHIE Enoxaparin Sodium (Enoxaparin Sodium 40 Mg/0.4 Ml Syringe) 40 mg SUBCUT Q24H [facility] Last Admin: 04/16/24 19:47 Dose: 40 mg Documented By: SANTO Fluticasone Propionate (Fluticasone Propionate Nasal 16 Gm [place]) 1 spray NOSTRIL-B BID [facility] Last Admin: 04/17/24 08:09 Dose: 1 spray Documented By: RICHIE Glipizide (Glipizide 10 Mg Tablet) 10 mg PO BID [facility] Last Admin: 04/17/24 08:09 Dose: 10 mg Documented By: RICHIE Lactulose (Lactulose 20 Gm/30 Ml Solution) 20 gm PO BID [facility] Last Admin: 04/17/24 08:10 Dose: Not Given Documented By: RICHIE Non-Admin Reason: Patient Refused Lidocaine (Lidocaine 4 % Patch Adh..Patch) 2 patch TRANSDERMA DAILY [facility]; Protocol Last Admin: 04/17/24 08:11 Dose: 2 patch Documented By: RICHIE Melatonin (Melatonin 3 Mg Tablet) 3 mg PO BEDTIME PRN PRN Reason: Insomnia Last Admin: 04/16/24 19:46 Dose: 3 mg Documented By: SANTO Nitroglycerin (Nitroglycerin 0.4 Mg Tab.Subl) 0.4 mg SUBLINGUAL Q5M PRN PRN Reason: angina Omeprazole (Omeprazole 20 Mg Capsule.Dr) 20 mg PO DAILY@0630 [facility] Last Admin: 04/17/24 06:32 Dose: 20 mg Documented By: SANTO Sitagliptin Phosphate (Sitagliptin Phosphate 100 Mg Tablet) 100 mg PO DAILY [facility] Last Admin: 04/17/24 08:09 Dose: 100 mg Documented By: RICHIE Sodium Chloride (0.9 % Sodium Chloride Flush 3 Ml Syringe) 3 ml IVFLUSH QSHIFT [facility] Last Admin: 04/17/24 11:17 Dose: Not Given Documented By: RICHIE Non-Admin Reason: Previously Administered Tramadol HCl (Tramadol Hcl 50 Mg Tablet) 25 mg PO Q6H PRN PRN Reason: moderate pain Last Admin: 04/17/24 06:32 Dose: 25 mg Documented By: SANTO Labs 03/24/24 16:45 Labs: Laboratory Results - last 24 hr 04/16/24 04/16/24 04/17/24 16:22 21:08 07:00 POC Glucose 152 H 171 H 94 04/17/24 10:45 POC Glucose 233 H Assessment and Plan (1) Cognitive impairment: Status: Acute Plan 88F PMH vascular dementia, diabetes, hypertension, hyperlipidemia, peptic ulcer disease presented with mechanical fall complicated left foot fracture Mechanical fall with left foot fracture PT rec SNF pain management w Tramadol prn, tylenol Headach PRN Fiorecit Diabetes Continue glipizide, Januvia, Jardiance, monitor POC Vascular dementia w cognitive impairment Stable, guardianship pending Peptic ulcer disease Continue omeprazole DVT prophylaxis with Lovenox Full Code reason for continued hospitalization: Awaiting guardianship and placement Quality Stroke Does the patient have a stroke diagnosis?: No VTE Prior VTE?: No VTE Risk Level:: Medical - moderate - high VTE Device Contraindication: Treatment Not Indicated VTE Drug Contraindication: N/A - Med Ordered
[2024-04-17 15:23] VITALS: BP 109/51; PULSE 77; RESP 18; TEMP 37.1; O2SAT 96
[2024-04-17 16:33] LABS: Glucose, Whole Blood 147 mg/dL (60-115)
[2024-04-17] MEDS: Enoxaparin Sodium 40 MG/0.4 ML SYRINGE SUBCUT (20:41)
[2024-04-17] MEDS: Lactulose 20 GM/30 ML SOLUTION PO (20:41)
[2024-04-17] MEDS: Atorvastatin Calcium 10 MG TABLET PO (20:41)
[2024-04-17 21:10] LABS: Glucose, Whole Blood 194 mg/dL (60-115)
[2024-04-17 23:51] VITALS: BP 117/57; PULSE 84; RESP 18; TEMP 36.1; O2SAT 97
[2024-04-18 04:18] VITALS: BP 118/58; PULSE 77; RESP 18; TEMP 36.4; O2SAT 97
[2024-04-18] MEDS: Omeprazole 20 MG CAPSULE.DR PO (06:31)
[2024-04-18 07:04] LABS: Glucose, Whole Blood 102 mg/dL (60-115)
[2024-04-18 07:32] VITALS: BP 133/65; PULSE 77; RESP 18; TEMP 36.4; O2SAT 97
[2024-04-18] MEDS: Lidocaine 4 % Patch ADH..PATCH 2 PATCH TRANSDERMA (08:29)
[2024-04-18] MEDS: Aspirin Enteric Coated 81 MG TABLET.DR PO (08:29)
[2024-04-18] MEDS: Lactulose 20 GM/30 ML SOLUTION PO ×2 (08:29→20:23)
[2024-04-18] MEDS: Butalb/Acetamin/Caff 50/325/40 TABLET 1 TAB PO (08:30)
[2024-04-18] MEDS: Empagliflozin 10 MG TABLET PO (08:30)
[2024-04-18] MEDS: SITagliptin Phosphate 100 MG TABLET PO (08:30)
[2024-04-18] MEDS: glipiZIDE 10 MG TABLET PO ×2 (08:30→20:23)
[2024-04-18] MEDS: Fluticasone Propionate Nasal 16 GM SPRAY 1 SPRAY NOSTRIL-B (08:31)
[2024-04-18] MEDS: Lidocaine 4 % Patch ADH..PATCH 1 PATCH TRANSDERMA (10:14)
[2024-04-18 10:57] LABS: Glucose, Whole Blood 210 mg/dL (60-115)
--- NOTE | 2024-04-18 14:37 | HO.PM.IMPN ---
Subjective Subjective Date of Service: 04/18/24 Interval History: follow up Review of Systems denies any abd pain or sob or new c/o. Physical Exam Vital Signs: Vital Signs: Last Vital Signs Temp 97.6 F 04/18/24 07:32 Pulse 77 04/18/24 07:32 Resp 18 04/18/24 07:32 BP 133/65 04/18/24 07:32 Pulse Ox 97 04/18/24 07:32 O2 Del Method Room Air 04/18/24 07:32 BMI result Body Mass Index 24.5 Constitutional : interactive, not in distress Cardiovascular : no JVP, no lower extremity edema Respiratory : bilateral chest movement, not in resp distress Gastrointestinal: soft, lax, Non tender Skin : Warm, Dry Neurological : Alert, no focal deficit Objective Data Active Medications Acetaminophen (Acetaminophen 325 Mg Tablet) 650 mg PO Q4H PRN PRN Reason: headache or pain Last Admin: 03/31/24 22:07 Dose: 650 mg Documented By: HILARIO Acetaminophen/Butalbital/Caffeine (Butalb/Acetamin/Caff 50/325/40 Tablet) 1 tab PO Q4H PRN PRN Reason: Headache Last Admin: 04/18/24 08:30 Dose: 1 tab Documented By: CEDRICK Amitriptyline HCl (Amitriptyline Hcl 25 Mg Tablet) 25 mg PO BEDTIME [facility] Last Admin: 04/17/24 20:45 Dose: Not Given Documented By: SON Non-Admin Reason: Patient Refused Comments: She states that she does not take this medication. Aspirin (Aspirin Enteric Coated 81 Mg Tablet.) 81 mg PO DAILY [facility] Last Admin: 04/18/24 08:29 Dose: 81 mg Documented By: CEDRICK Atorvastatin Calcium (Atorvastatin Calcium 10 Mg Tablet) 10 mg PO BEDTIME [facility] Last Admin: 04/17/24 20:41 Dose: 10 mg Documented By: SON Empagliflozin (Empagliflozin 10 Mg Tablet) 10 mg PO DAILY [facility] Last Admin: 04/18/24 08:30 Dose: 10 mg Documented By: CEDRICK Enoxaparin Sodium (Enoxaparin Sodium 40 Mg/0.4 Ml Syringe) 40 mg SUBCUT Q24H [facility] Last Admin: 04/17/24 20:41 Dose: 40 mg Documented By: SON Fluticasone Propionate (Fluticasone Propionate Nasal 16 Gm [place]) 1 spray NOSTRIL-B BID [facility] Last Admin: 04/18/24 08:31 Dose: 1 spray Documented By: CEDRICK Glipizide (Glipizide 10 Mg Tablet) 10 mg PO BID [facility] Last Admin: 04/18/24 08:30 Dose: 10 mg Documented By: CEDRICK Lactulose (Lactulose 20 Gm/30 Ml Solution) 20 gm PO BID [facility] Last Admin: 04/18/24 08:29 Dose: 20 gm Documented By: CEDRICK Lidocaine (Lidocaine 4 % Patch Adh..Patch) 2 patch TRANSDERMA DAILY [facility]; Protocol Last Admin: 04/18/24 08:29 Dose: 2 patch Documented By: CEDRICK Lidocaine (Lidocaine 4 % Patch Adh..Patch) 1 patch TRANSDERMA DAILY [facility]; Protocol Last Admin: 04/18/24 10:14 Dose: 1 patch Documented By: ABRAM Melatonin (Melatonin 3 Mg Tablet) 3 mg PO BEDTIME PRN PRN Reason: Insomnia Last Admin: 04/16/24 19:46 Dose: 3 mg Documented By: SANTO Nitroglycerin (Nitroglycerin 0.4 Mg Tab.Subl) 0.4 mg SUBLINGUAL Q5M PRN PRN Reason: angina Omeprazole (Omeprazole 20 Mg Capsule.Dr) 20 mg PO DAILY@0630 [facility] Last Admin: 04/18/24 06:31 Dose: 20 mg Documented By: SON Sitagliptin Phosphate (Sitagliptin Phosphate 100 Mg Tablet) 100 mg PO DAILY [facility] Last Admin: 04/18/24 08:30 Dose: 100 mg Documented By: CEDRICK Sodium Chloride (0.9 % Sodium Chloride Flush 3 Ml Syringe) 3 ml IVFLUSH QSHIFT [facility] Last Admin: 04/18/24 08:29 Dose: Not Given Documented By: CEDRICK Non-Admin Reason: No Access Labs 03/24/24 16:45 Labs: Laboratory Results - last 24 hr 04/17/24 04/17/24 04/18/24 16:05 21:00 06:54 POC Glucose 147 H 194 H 102 04/18/24 10:47 POC Glucose 210 H Assessment and Plan (1) Cognitive impairment: Status: Acute Plan 88F PMH vascular dementia, diabetes, hypertension, hyperlipidemia, peptic ulcer disease presented with mechanical fall complicated left foot fracture Mechanical fall with left foot fracture PT rec SNF pain management w Tramadol prn, tylenol Headach PRN Fiorecit Diabetes Continue glipizide, Januvia, Jardiance, monitor POC Vascular dementia w cognitive impairment Stable, guardianship pending Peptic ulcer disease Continue omeprazole DVT prophylaxis with Lovenox Full Code reason for continued hospitalization: Awaiting guardianship and placement Quality Stroke Does the patient have a stroke diagnosis?: No VTE Prior VTE?: No VTE Risk Level:: Medical - moderate - high VTE Device Contraindication: Treatment Not Indicated VTE Drug Contraindication: N/A - Med Ordered
[2024-04-18 15:15] VITALS: BP 137/60; PULSE 79; RESP 16; TEMP 36.5; O2SAT 98
[2024-04-18 16:18] LABS: Glucose, Whole Blood 159 mg/dL (60-115)
[2024-04-18] MEDS: Atorvastatin Calcium 10 MG TABLET PO (20:23)
[2024-04-18] MEDS: Melatonin 3 MG TABLET PO (20:23)
[2024-04-18] MEDS: Enoxaparin Sodium 40 MG/0.4 ML SYRINGE SUBCUT (20:23)
[2024-04-18 20:29] LABS: Glucose, Whole Blood 211 mg/dL (60-115)
[2024-04-19] VITALS: BP 144/64; PULSE 85; RESP 16; TEMP 36.9; O2SAT 98
[2024-04-19 04:00] VITALS: BP 144/68; PULSE 84; RESP 18; TEMP 36.6; O2SAT 100
[2024-04-19] MEDS: Butalb/Acetamin/Caff 50/325/40 TABLET 1 TAB PO (05:27)
[2024-04-19] MEDS: Omeprazole 20 MG CAPSULE.DR PO (05:27)
[2024-04-19 07:41] VITALS: BP 133/76; PULSE 82; RESP 18; TEMP 36.4; O2SAT 99
[2024-04-19] MEDS: Aspirin Enteric Coated 81 MG TABLET.DR PO (07:53)
[2024-04-19] MEDS: SITagliptin Phosphate 100 MG TABLET PO (07:53)
[2024-04-19] MEDS: Empagliflozin 10 MG TABLET PO (07:53)
[2024-04-19] MEDS: glipiZIDE 10 MG TABLET PO ×2 (07:53→21:53)
[2024-04-19 07:54] LABS: Glucose, Whole Blood 92 mg/dL (60-115)
[2024-04-19] MEDS: Fluticasone Propionate Nasal 16 GM SPRAY 1 SPRAY NOSTRIL-B ×2 (07:54→21:53)
[2024-04-19] MEDS: Lidocaine 4 % Patch ADH..PATCH 1 PATCH TRANSDERMA (07:54)
[2024-04-19] MEDS: Lidocaine 4 % Patch ADH..PATCH 2 PATCH TRANSDERMA (07:54)
[2024-04-19 11:36] VITALS: BP 129/69; PULSE 82; RESP 19; TEMP 36.3; O2SAT 98
[2024-04-19 11:52] LABS: Glucose, Whole Blood 207 mg/dL (60-115)
[2024-04-19 14:54] VITALS: BP 129/69; PULSE 82; O2SAT 98
--- NOTE | 2024-04-19 14:55 | MHC.CM.PN ---
EMR REVIEWED, CM RECEIVED MESSAGE FROM PT'S GUARDIAN FOR CALL BACK, CM ATTEMPTED TO CONTACT DELIO [phone] 2:52PM NO ANSWER AND DETAILED MESSAGE LEFT, [facility] WILL BE SUBMITTED TODAY HOWEVER WILL UPDATE NOTE ONCE GUARDIAN CALLS BACK, CM WILL CONT TO FOLLOW.
[2024-04-19 16:36] LABS: Glucose, Whole Blood 225 mg/dL (60-115)
[2024-04-19 17:07] VITALS: BP 104/55; PULSE 85; RESP 17; TEMP 36.3; O2SAT 96
--- NOTE | 2024-04-19 18:39 | P.PNIM_ITS ---
Subjective Subjective Date of Service: 04/19/24 Interval History: follow up Review of Systems no new c/o Physical Exam 2 Vital Signs: Vital Signs: Last Vital Signs Temp 97.4 F 04/19/24 17:07 Pulse 85 04/19/24 17:07 Resp 17 04/19/24 17:07 BP 104/55 L 04/19/24 17:07 Pulse Ox 96 04/19/24 17:07 O2 Del Method Room Air 04/19/24 17:07 BMI result Body Mass Index 24.5 Constitutional : interactive, not in distress Cardiovascular : no JVP, no lower extremity edema Respiratory : bilateral chest movement, not in resp distress Gastrointestinal: soft, lax, Non tender Skin : Warm, Dry Neurological : Alert, no focal deficit Objective Data Active Medications Acetaminophen (Acetaminophen 325 Mg Tablet) 650 mg PO Q4H PRN PRN Reason: headache or pain Last Admin: 03/31/24 22:07 Dose: 650 mg Documented By: HILARIO Acetaminophen/Butalbital/Caffeine (Butalb/Acetamin/Caff 50/325/40 Tablet) 1 tab PO Q4H PRN PRN Reason: Headache Last Admin: 04/19/24 05:27 Dose: 1 tab Documented By: SHAISTA Amitriptyline HCl (Amitriptyline Hcl 25 Mg Tablet) 25 mg PO BEDTIME [facility] Last Admin: 04/18/24 21:57 Dose: Not Given Documented By: SHAISTA Non-Admin Reason: Patient Refused Aspirin (Aspirin Enteric Coated 81 Mg Tablet.) 81 mg PO DAILY [facility] Last Admin: 04/19/24 07:53 Dose: 81 mg Documented By: ABRAM Atorvastatin Calcium (Atorvastatin Calcium 10 Mg Tablet) 10 mg PO BEDTIME [facility] Last Admin: 04/18/24 20:23 Dose: 10 mg Documented By: SHAISTA Empagliflozin (Empagliflozin 10 Mg Tablet) 10 mg PO DAILY [facility] Last Admin: 04/19/24 07:53 Dose: 10 mg Documented By: ABRAM Enoxaparin Sodium (Enoxaparin Sodium 40 Mg/0.4 Ml Syringe) 40 mg SUBCUT Q24H [facility] Last Admin: 04/18/24 20:23 Dose: 40 mg Documented By: SHAISTA Fluticasone Propionate (Fluticasone Propionate Nasal 16 Gm [place]) 1 spray NOSTRIL-B BID [facility] Last Admin: 04/19/24 07:54 Dose: 1 spray Documented By: ABRAM Glipizide (Glipizide 10 Mg Tablet) 10 mg PO BID [facility] Last Admin: 04/19/24 07:53 Dose: 10 mg Documented By: ABRAM Lactulose (Lactulose 20 Gm/30 Ml Solution) 20 gm PO BID [facility] Last Admin: 04/19/24 07:54 Dose: Not Given Documented By: ABRAM Non-Admin Reason: Patient Refused Lidocaine (Lidocaine 4 % Patch Adh..Patch) 2 patch TRANSDERMA DAILY [facility]; Protocol Last Admin: 04/19/24 07:54 Dose: 2 patch Documented By: ABRAM Lidocaine (Lidocaine 4 % Patch Adh..Patch) 1 patch TRANSDERMA DAILY [facility]; Protocol Last Admin: 04/19/24 07:54 Dose: 1 patch Documented By: ABRAM Melatonin (Melatonin 3 Mg Tablet) 3 mg PO BEDTIME PRN PRN Reason: Insomnia Last Admin: 04/18/24 20:23 Dose: 3 mg Documented By: SHAISTA Nitroglycerin (Nitroglycerin 0.4 Mg Tab.Subl) 0.4 mg SUBLINGUAL Q5M PRN PRN Reason: angina Omeprazole (Omeprazole 20 Mg Capsule.Dr) 20 mg PO DAILY@0630 [facility] Last Admin: 04/19/24 05:27 Dose: 20 mg Documented By: SHAISTA Sitagliptin Phosphate (Sitagliptin Phosphate 100 Mg Tablet) 100 mg PO DAILY [facility] Last Admin: 04/19/24 07:53 Dose: 100 mg Documented By: ABRAM Sodium Chloride (0.9 % Sodium Chloride Flush 3 Ml Syringe) 3 ml IVFLUSH QSHIFT [facility] Last Admin: 04/19/24 15:11 Dose: Not Given Documented By: ABRAM Non-Admin Reason: No Access Labs 03/24/24 16:45 Labs: Laboratory Results - last 24 hr 04/18/24 04/19/24 04/19/24 20:21 07:49 11:44 POC Glucose 211 H 92 207 H 04/19/24 16:31 POC Glucose 225 H Assessment and Plan (1) Cognitive impairment: Status: Acute Plan 88F [facility] vascular dementia, diabetes, hypertension, hyperlipidemia, peptic ulcer disease presented with mechanical fall complicated left foot fracture Mechanical fall with left foot fracture PT rec SNF pain management w Tramadol prn, tylenol Headach PRN Fiorecit Diabetes Continue glipizide, Januvia, Jardiance, monitor POC Vascular dementia w cognitive impairment Stable, guardianship pending Peptic ulcer disease Continue omeprazole DVT prophylaxis with Lovenox Full Code reason for continued hospitalization: Awaiting guardianship and placement Quality Stroke Does the patient have a stroke diagnosis?: No VTE Prior VTE?: No VTE Risk Level:: Medical - moderate - high VTE Device Contraindication: Treatment Not Indicated VTE Drug Contraindication: N/A - Med Ordered
[2024-04-19] MEDS: Enoxaparin Sodium 40 MG/0.4 ML SYRINGE SUBCUT (19:45)
[2024-04-19 20:30] LABS: Glucose, Whole Blood 232 mg/dL (60-115)
[2024-04-19] MEDS: Melatonin 3 MG TABLET PO (21:53)
[2024-04-19] MEDS: Atorvastatin Calcium 10 MG TABLET PO (21:53)
[2024-04-20] MEDS: Omeprazole 20 MG CAPSULE.DR PO (06:52)
[2024-04-20 07:23] LABS: Glucose, Whole Blood 79 mg/dL (60-115)
[2024-04-20 08:00] VITALS: BP 139/72; PULSE 71; RESP 20; TEMP 36.2; O2SAT 99
[2024-04-20] MEDS: Fluticasone Propionate Nasal 16 GM SPRAY 1 SPRAY NOSTRIL-B ×2 (08:49→20:22)
[2024-04-20] MEDS: glipiZIDE 10 MG TABLET PO ×2 (08:49→20:16)
[2024-04-20] MEDS: Empagliflozin 10 MG TABLET PO (08:49)
[2024-04-20] MEDS: SITagliptin Phosphate 100 MG TABLET PO (08:49)
[2024-04-20] MEDS: Aspirin Enteric Coated 81 MG TABLET.DR PO (08:49)
[2024-04-20] MEDS: Lidocaine 4 % Patch ADH..PATCH 1 PATCH TRANSDERMA (08:50)
[2024-04-20] MEDS: Lidocaine 4 % Patch ADH..PATCH 2 PATCH TRANSDERMA (08:50)
[2024-04-20] MEDS: Lactulose 20 GM/30 ML SOLUTION PO (09:33)
--- NOTE | 2024-04-20 11:02 | MHC.CM.PN ---
SUDHIR recieved a call from Gaston Holman, pt.s guardian. She said the [employer] osiel has been submitted, and that pt. has 2 life insurance policies that logan is not able to get info on unless she is made conservator. Gaston requested pt.'s H&P and psych eval be sent to her, those were faxed to her today. Gaston asked if SNF is willing to take pt. [employer] pending, SUDHIR will ask SNF.
--- NOTE | 2024-04-20 11:56 | P.PNIM_ITS ---
Subjective Subjective Date of Service: 04/20/24 Interval History: Being followed for placement, no acute events overnight. Review of Systems Unable to obtain due to mental status Physical Exam 2 Vital Signs: Vital Signs: Last Vital Signs Temp 97.1 F 04/20/24 08:00 Pulse 71 04/20/24 08:00 Resp 20 04/20/24 08:00 BP 139/72 04/20/24 08:00 Pulse Ox 99 04/20/24 08:00 O2 Del Method Room Air 04/20/24 08:00 BMI result Body Mass Index 24.5 Const: Other: Constitutional : interactive, awake and alert. Neck no JVD Cardiovascular : Regular rate rhythm Respiratory : Clear to auscultation, no respiratory distress Gastrointestinal: soft, Non tender, bowel sounds audible Skin : Warm, Dry Neurological : Alert, no focal deficit Objective Data Active Medications Acetaminophen (Acetaminophen 325 Mg Tablet) 650 mg PO Q4H PRN PRN Reason: headache or pain Last Admin: 03/31/24 22:07 Dose: 650 mg Documented By: HILARIO Acetaminophen/Butalbital/Caffeine (Butalb/Acetamin/Caff 50/325/40 Tablet) 1 tab PO Q4H PRN PRN Reason: Headache Last Admin: 04/19/24 05:27 Dose: 1 tab Documented By: SHAISTA Amitriptyline HCl (Amitriptyline Hcl 25 Mg Tablet) 25 mg PO BEDTIME [facility] Last Admin: 04/19/24 22:01 Dose: Not Given Documented By: KE Non-Admin Reason: Patient Refused Aspirin (Aspirin Enteric Coated 81 Mg Tablet.) 81 mg PO DAILY [facility] Last Admin: 04/20/24 08:49 Dose: 81 mg Documented By: BRISA Atorvastatin Calcium (Atorvastatin Calcium 10 Mg Tablet) 10 mg PO BEDTIME [facility] Last Admin: 04/19/24 21:53 Dose: 10 mg Documented By: KE Empagliflozin (Empagliflozin 10 Mg Tablet) 10 mg PO DAILY [facility] Last Admin: 04/20/24 08:49 Dose: 10 mg Documented By: BRISA Enoxaparin Sodium (Enoxaparin Sodium 40 Mg/0.4 Ml Syringe) 40 mg SUBCUT Q24H [facility] Last Admin: 04/19/24 19:45 Dose: 40 mg Documented By: KE Fluticasone Propionate (Fluticasone Propionate Nasal 16 Gm [place]) 1 spray NOSTRIL-B BID [facility] Last Admin: 04/20/24 08:49 Dose: 1 spray Documented By: BRISA Glipizide (Glipizide 10 Mg Tablet) 10 mg PO BID [facility] Last Admin: 04/20/24 08:49 Dose: 10 mg Documented By: BRISA Lactulose (Lactulose 20 Gm/30 Ml Solution) 20 gm PO BID [facility] Last Admin: 04/20/24 09:33 Dose: 20 gm Documented By: BRISA Lidocaine (Lidocaine 4 % Patch Adh..Patch) 2 patch TRANSDERMA DAILY [facility]; Protocol Last Admin: 04/20/24 08:50 Dose: 2 patch Documented By: BRISA Lidocaine (Lidocaine 4 % Patch Adh..Patch) 1 patch TRANSDERMA DAILY [facility]; Protocol Last Admin: 04/20/24 08:50 Dose: 1 patch Documented By: BRISA Melatonin (Melatonin 3 Mg Tablet) 3 mg PO BEDTIME PRN PRN Reason: Insomnia Last Admin: 04/19/24 21:53 Dose: 3 mg Documented By: KE Nitroglycerin (Nitroglycerin 0.4 Mg Tab.Subl) 0.4 mg SUBLINGUAL Q5M PRN PRN Reason: angina Omeprazole (Omeprazole 20 Mg Capsule.Dr) 20 mg PO DAILY@0630 [facility] Last Admin: 04/20/24 06:52 Dose: 20 mg Documented By: KE Sitagliptin Phosphate (Sitagliptin Phosphate 100 Mg Tablet) 100 mg PO DAILY [facility] Last Admin: 04/20/24 08:49 Dose: 100 mg Documented By: BRISA Sodium Chloride (0.9 % Sodium Chloride Flush 3 Ml Syringe) 3 ml IVFLUSH QSHIFT [facility] Last Admin: 04/20/24 08:51 Dose: Not Given Documented By: BRISA Non-Admin Reason: No Access Labs 03/24/24 16:45 Labs: Laboratory Results - last 24 hr 04/19/24 04/19/24 04/20/24 16:31 20:26 07:10 POC Glucose 225 H 232 H 79 Assessment and Plan (1) Cognitive impairment: Status: Acute Plan 88F PMH vascular dementia, diabetes, hypertension, hyperlipidemia, peptic ulcer disease presented with mechanical fall complicated left foot fracture Mechanical fall with left foot fracture PT rec SNF pain management w Tramadol prn, tylenol Headache PRN Fiorecit Diabetes Continue glipizide, Januvia, Jardiance, monitor POC Vascular dementia w cognitive impairment Stable, guardianship pending Peptic ulcer disease Continue omeprazole DVT prophylaxis with Lovenox Full Code reason for continued hospitalization: Awaiting guardianship and placement Quality Stroke Does the patient have a stroke diagnosis?: No VTE Prior VTE?: No VTE Risk Level:: Medical - moderate - high VTE Device Contraindication: Treatment Not Indicated VTE Drug Contraindication: N/A - Med Ordered
[2024-04-20 11:57] LABS: Glucose, Whole Blood 206 mg/dL (60-115)
[2024-04-20 16:00] VITALS: BP 118/59; PULSE 79; RESP 14; TEMP 36.3; O2SAT 99
[2024-04-20 16:33] LABS: Glucose, Whole Blood 114 mg/dL (60-115)
[2024-04-20 19:52] VITALS: BP 106/55; PULSE 83; RESP 14; TEMP 36.2; O2SAT 97
[2024-04-20] MEDS: Atorvastatin Calcium 10 MG TABLET PO (20:16)
[2024-04-20] MEDS: Melatonin 3 MG TABLET PO (20:16)
[2024-04-20 21:10] LABS: Glucose, Whole Blood 222 mg/dL (60-115)
[2024-04-21] VITALS: BP 137/66; PULSE 87; RESP 18; TEMP 36; O2SAT 97
[2024-04-21] MEDS: Omeprazole 20 MG CAPSULE.DR PO (07:07)
[2024-04-21 07:47] VITALS: BP 132/72; PULSE 79; RESP 19; TEMP 36.7; O2SAT 99
[2024-04-21 07:47] LABS: Glucose, Whole Blood 113 mg/dL (60-115)
[2024-04-21] MEDS: glipiZIDE 10 MG TABLET PO ×2 (08:37→19:32)
[2024-04-21] MEDS: Lactulose 20 GM/30 ML SOLUTION PO ×2 (08:37→19:32)
[2024-04-21] MEDS: Aspirin Enteric Coated 81 MG TABLET.DR PO (08:37)
[2024-04-21] MEDS: Lidocaine 4 % Patch ADH..PATCH 2 PATCH TRANSDERMA (08:37)
[2024-04-21] MEDS: SITagliptin Phosphate 100 MG TABLET PO (08:37)
[2024-04-21] MEDS: Empagliflozin 10 MG TABLET PO (08:37)
--- NOTE | 2024-04-21 11:05 | P.PNIM_ITS ---
Subjective Subjective Date of Service: 04/21/24 Interval History: Being followed for placement, offers no acute complaints tolerating diet. Review of Systems all other system reviewed and negative. Physical Exam 2 Vital Signs: Vital Signs: Last Vital Signs Temp 98.0 F 04/21/24 07:47 Pulse 79 04/21/24 07:47 Resp 19 04/21/24 07:47 BP 132/72 04/21/24 07:47 Pulse Ox 99 04/21/24 07:47 O2 Del Method Room Air 04/21/24 07:47 BMI result Body Mass Index 24.5 Const: Other: Constitutional : interactive, awake and alert. Neck no JVD Cardiovascular : Regular rate rhythm Respiratory : Clear to auscultation, no respiratory distress Gastrointestinal: soft, Non tender, bowel sounds audible Skin : Warm, Dry Neurological : Alert, no focal deficit Objective Data Active Medications Acetaminophen (Acetaminophen 325 Mg Tablet) 650 mg PO Q4H PRN PRN Reason: headache or pain Last Admin: 03/31/24 22:07 Dose: 650 mg Documented By: HILARIO Acetaminophen/Butalbital/Caffeine (Butalb/Acetamin/Caff 50/325/40 Tablet) 1 tab PO Q4H PRN PRN Reason: Headache Last Admin: 04/19/24 05:27 Dose: 1 tab Documented By: SHAISTA Amitriptyline HCl (Amitriptyline Hcl 25 Mg Tablet) 25 mg PO BEDTIME [facility] Last Admin: 04/20/24 20:16 Dose: Not Given Documented By: KE Non-Admin Reason: Patient Refused Aspirin (Aspirin Enteric Coated 81 Mg Tablet.) 81 mg PO DAILY [facility] Last Admin: 04/21/24 08:37 Dose: 81 mg Documented By: BRISA Atorvastatin Calcium (Atorvastatin Calcium 10 Mg Tablet) 10 mg PO BEDTIME [facility] Last Admin: 04/20/24 20:16 Dose: 10 mg Documented By: KE Empagliflozin (Empagliflozin 10 Mg Tablet) 10 mg PO DAILY [facility] Last Admin: 04/21/24 08:37 Dose: 10 mg Documented By: BRISA Enoxaparin Sodium (Enoxaparin Sodium 40 Mg/0.4 Ml Syringe) 40 mg SUBCUT Q24H [facility] Last Admin: 04/20/24 20:15 Dose: Not Given Documented By: KE Non-Admin Reason: patient refused Fluticasone Propionate (Fluticasone Propionate Nasal 16 Gm [place]) 1 spray NOSTRIL-B BID [facility] Last Admin: 04/21/24 08:40 Dose: Not Given Documented By: BRISA Non-Admin Reason: Patient Refused Glipizide (Glipizide 10 Mg Tablet) 10 mg PO BID [facility] Last Admin: 04/21/24 08:37 Dose: 10 mg Documented By: BRISA Lactulose (Lactulose 20 Gm/30 Ml Solution) 20 gm PO BID [facility] Last Admin: 04/21/24 08:37 Dose: 20 gm Documented By: BRISA Lidocaine (Lidocaine 4 % Patch Adh..Patch) 2 patch TRANSDERMA DAILY [facility]; Protocol Last Admin: 04/21/24 08:37 Dose: 2 patch Documented By: BRISA Lidocaine (Lidocaine 4 % Patch Adh..Patch) 1 patch TRANSDERMA DAILY [facility]; Protocol Last Admin: 04/21/24 08:38 Dose: Not Given Documented By: BRISA Non-Admin Reason: only requests 2 Melatonin (Melatonin 3 Mg Tablet) 3 mg PO BEDTIME PRN PRN Reason: Insomnia Last Admin: 04/20/24 20:16 Dose: 3 mg Documented By: KE Nitroglycerin (Nitroglycerin 0.4 Mg Tab.Subl) 0.4 mg SUBLINGUAL Q5M PRN PRN Reason: angina Omeprazole (Omeprazole 20 Mg Capsule.Dr) 20 mg PO DAILY@0630 [facility] Last Admin: 04/21/24 07:07 Dose: 20 mg Documented By: KE Sitagliptin Phosphate (Sitagliptin Phosphate 100 Mg Tablet) 100 mg PO DAILY [facility] Last Admin: 04/21/24 08:37 Dose: 100 mg Documented By: BRISA Sodium Chloride (0.9 % Sodium Chloride Flush 3 Ml Syringe) 3 ml IVFLUSH QSHIFT [facility] Last Admin: 04/21/24 08:34 Dose: Not Given Documented By: BRISA Non-Admin Reason: No Access Labs 03/24/24 16:45 Labs: Laboratory Results - last 24 hr 04/20/24 04/20/24 04/20/24 11:40 16:27 20:55 POC Glucose 206 H 114 222 H 04/21/24 07:25 POC Glucose 113 Assessment and Plan (1) Cognitive impairment: Status: Acute Plan 88F PMH vascular dementia, diabetes, hypertension, hyperlipidemia, peptic ulcer disease presented with mechanical fall complicated left foot fracture Mechanical fall with left foot fracture PT rec SNF pain management w Tramadol prn, tylenol Headache PRN Fiorecit Diabetes Continue glipizide, Januvia, Jardiance, monitor POC Vascular dementia w cognitive impairment Stable, guardianship pending Peptic ulcer disease Continue omeprazole DVT prophylaxis with Lovenox Full Code reason for continued hospitalization: Awaiting guardianship and placement Quality Stroke Does the patient have a stroke diagnosis?: No VTE Prior VTE?: No VTE Risk Level:: Medical - moderate - high VTE Device Contraindication: Treatment Not Indicated VTE Drug Contraindication: N/A - Med Ordered
[2024-04-21 11:35] LABS: Glucose, Whole Blood 181 mg/dL (60-115)
--- NOTE | 2024-04-21 12:06 | MHC.CM.PN ---
Addendum entered by Vonnie Ko RN 04/21/24 14:36: CM REQUESTED FS LOOK UP PT ON [facility] WEBSITE TO CHECK STATUS, [facility] NOT YET PENDING, CM WILL CONT TO FOLLOW. Original Note: EMR REVIEWED, CM RECEIVED CALL FROM [facility] WHO REQUESTED UPDATES AND HAD QUESTIONS FOR GUARDIAN HOWEVER THEY DID SAY THEY WOULD NOT LIKELY TAKE [facility] PENDING AND [facility] FOLLOWING, CM STILL AWAITING RESPONSE FROM [facility] TO SEE IF THEY WILL TAKE PT WHILE [facility] PENDING. PER GUARDIAN/PREVIOUS CM NOTE PT'S GUARDIAN WILL NEED TO PETITION FOR CONSERVATORSHIP D/T 2 INSURANCE POLICIES. CM WILL CONT TO FOLLOW DC NEEDS.
[2024-04-21 15:25] VITALS: BP 114/60; PULSE 79; RESP 18; TEMP 36.6; O2SAT 97
[2024-04-21 16:18] LABS: Glucose, Whole Blood 167 mg/dL (60-115)
[2024-04-21] MEDS: Fluticasone Propionate Nasal 16 GM SPRAY 1 SPRAY NOSTRIL-B (19:32)
[2024-04-21] MEDS: Atorvastatin Calcium 10 MG TABLET PO (19:32)
[2024-04-21 20:46] LABS: Glucose, Whole Blood 171 mg/dL (60-115)
[2024-04-22] VITALS: BP 177/80; PULSE 80; RESP 20; TEMP 36.3; O2SAT 97
[2024-04-22] MEDS: Omeprazole 20 MG CAPSULE.DR PO (06:36)
[2024-04-22 07:37] LABS: Glucose, Whole Blood 103 mg/dL (60-115)
[2024-04-22 08:00] VITALS: BP 129/67; PULSE 81; RESP 16; TEMP 36.3; O2SAT 95
[2024-04-22] MEDS: glipiZIDE 10 MG TABLET PO ×2 (09:02→22:23)
[2024-04-22] MEDS: SITagliptin Phosphate 100 MG TABLET PO (09:02)
[2024-04-22] MEDS: Acetaminophen 325 MG TABLET 650 MG PO (09:03)
[2024-04-22] MEDS: Lidocaine 4 % Patch ADH..PATCH 1 PATCH TRANSDERMA (09:03)
[2024-04-22] MEDS: Aspirin Enteric Coated 81 MG TABLET.DR PO (09:03)
[2024-04-22] MEDS: Empagliflozin 10 MG TABLET PO (09:03)
[2024-04-22] MEDS: Lidocaine 4 % Patch ADH..PATCH 2 PATCH TRANSDERMA (09:03)
[2024-04-22] MEDS: Lactulose 20 GM/30 ML SOLUTION PO (09:04)
[2024-04-22] MEDS: Fluticasone Propionate Nasal 16 GM SPRAY 1 SPRAY NOSTRIL-B (09:05)
--- NOTE | 2024-04-22 09:57 | HO.PM.IMPN ---
Subjective Subjective Date of Service: 04/22/24 Interval History: Waiting for placement Denies foot pain, no acute events overnight. Review of Systems All other system reviewed and are negative Physical Exam Vital Signs: Vital Signs: Last Vital Signs Temp 97.3 F 04/22/24 08:00 Pulse 81 04/22/24 08:00 Resp 16 04/22/24 08:00 BP 129/67 04/22/24 08:00 Pulse Ox 95 04/22/24 08:00 O2 Del Method Room Air 04/22/24 08:00 BMI result Body Mass Index 24.5 Const: Other: Constitutional : interactive, awake and alert. Neck no JVD Cardiovascular : Regular rate rhythm Respiratory : Clear to auscultation, no respiratory distress Gastrointestinal: soft, Non tender, bowel sounds audible Skin : Warm, Dry Neurological : Alert, no focal deficit Impaired insight Objective Data Active Medications Acetaminophen (Acetaminophen 325 Mg Tablet) 650 mg PO Q4H PRN PRN Reason: headache or pain Last Admin: 04/22/24 09:03 Dose: 650 mg Documented By: JIMY Acetaminophen/Butalbital/Caffeine (Butalb/Acetamin/Caff 50/325/40 Tablet) 1 tab PO Q4H PRN PRN Reason: Headache Last Admin: 04/19/24 05:27 Dose: 1 tab Documented By: SHAISTA Amitriptyline HCl (Amitriptyline Hcl 25 Mg Tablet) 25 mg PO BEDTIME [facility] Last Admin: 04/21/24 19:32 Dose: Not Given Documented By: SANTO Non-Admin Reason: Patient Refused Aspirin (Aspirin Enteric Coated 81 Mg Tablet.) 81 mg PO DAILY [facility] Last Admin: 04/22/24 09:03 Dose: 81 mg Documented By: JIMY Atorvastatin Calcium (Atorvastatin Calcium 10 Mg Tablet) 10 mg PO BEDTIME [facility] Last Admin: 04/21/24 19:32 Dose: 10 mg Documented By: SANTO Empagliflozin (Empagliflozin 10 Mg Tablet) 10 mg PO DAILY [facility] Last Admin: 04/22/24 09:03 Dose: 10 mg Documented By: JIMY Enoxaparin Sodium (Enoxaparin Sodium 40 Mg/0.4 Ml Syringe) 40 mg SUBCUT Q24H [facility] Last Admin: 04/21/24 19:32 Dose: Not Given Documented By: SANTO Non-Admin Reason: Patient Refused Fluticasone Propionate (Fluticasone Propionate Nasal 16 Gm [place]) 1 spray NOSTRIL-B BID [facility] Last Admin: 04/22/24 09:05 Dose: 1 spray Documented By: JIMY Glipizide (Glipizide 10 Mg Tablet) 10 mg PO BID [facility] Last Admin: 04/22/24 09:02 Dose: 10 mg Documented By: JIMY Lactulose (Lactulose 20 Gm/30 Ml Solution) 20 gm PO BID [facility] Last Admin: 04/22/24 09:04 Dose: 20 gm Documented By: JIMY Lidocaine (Lidocaine 4 % Patch Adh..Patch) 2 patch TRANSDERMA DAILY [facility]; Protocol Last Admin: 04/22/24 09:03 Dose: 2 patch Documented By: JIMY Lidocaine (Lidocaine 4 % Patch Adh..Patch) 1 patch TRANSDERMA DAILY [facility]; Protocol Last Admin: 04/22/24 09:03 Dose: 1 patch Documented By: JIMY Melatonin (Melatonin 3 Mg Tablet) 3 mg PO BEDTIME PRN PRN Reason: Insomnia Last Admin: 04/20/24 20:16 Dose: 3 mg Documented By: KE Nitroglycerin (Nitroglycerin 0.4 Mg Tab.Subl) 0.4 mg SUBLINGUAL Q5M PRN PRN Reason: angina Omeprazole (Omeprazole 20 Mg Capsule.Dr) 20 mg PO DAILY@0630 [facility] Last Admin: 04/22/24 06:36 Dose: 20 mg Documented By: SANTO Sitagliptin Phosphate (Sitagliptin Phosphate 100 Mg Tablet) 100 mg PO DAILY [facility] Last Admin: 04/22/24 09:02 Dose: 100 mg Documented By: JIMY Sodium Chloride (0.9 % Sodium Chloride Flush 3 Ml Syringe) 3 ml IVFLUSH QSHIFT [facility] Last Admin: 04/22/24 09:05 Dose: Not Given Documented By: JIMY Non-Admin Reason: No Access Labs 03/24/24 16:45 Labs: Laboratory Results - last 24 hr 04/21/24 04/21/24 04/21/24 11:31 16:14 20:37 POC Glucose 181 H 167 H 171 H 04/22/24 07:34 POC Glucose 103 Assessment and Plan (1) Cognitive impairment: Status: Acute Plan 88F PMH vascular dementia, diabetes, hypertension, hyperlipidemia, peptic ulcer disease presented with mechanical fall complicated left foot fracture Mechanical fall with left foot fracture PT rec SNF pain management w Tramadol prn, tylenol Headache PRN Fiorecit Diabetes Continue glipizide, Januvia, Jardiance, monitor POC Vascular dementia w cognitive impairment Stable, guardianship pending Peptic ulcer disease Continue omeprazole DVT prophylaxis with Lovenox Full Code reason for continued hospitalization: Awaiting guardianship and placement Quality Stroke Does the patient have a stroke diagnosis?: No VTE Prior VTE?: No VTE Risk Level:: Medical - moderate - high VTE Device Contraindication: Treatment Not Indicated VTE Drug Contraindication: N/A - Med Ordered
[2024-04-22 11:39] LABS: Glucose, Whole Blood 187 mg/dL (60-115)
[2024-04-22 16:00] VITALS: BP 113/63; PULSE 82; RESP 20; TEMP 36.6; O2SAT 98
[2024-04-22 17:04] LABS: Glucose, Whole Blood 164 mg/dL (60-115)
[2024-04-22 19:36] LABS: Glucose, Whole Blood 209 mg/dL (60-115)
[2024-04-22] MEDS: Melatonin 3 MG TABLET PO (22:23)
[2024-04-22] MEDS: Atorvastatin Calcium 10 MG TABLET PO (22:23)
[2024-04-23] VITALS: BP 137/63; PULSE 81; RESP 20; TEMP 36.6; O2SAT 95
[2024-04-23] MEDS: Omeprazole 20 MG CAPSULE.DR PO (05:30)
[2024-04-23] MEDS: Butalb/Acetamin/Caff 50/325/40 TABLET 1 TAB PO (06:25)
[2024-04-23 07:43] VITALS: BP 143/68; PULSE 77; RESP 18; TEMP 36.4; O2SAT 97
[2024-04-23 07:56] LABS: Glucose, Whole Blood 115 mg/dL (60-115)
[2024-04-23] MEDS: Lidocaine 4 % Patch ADH..PATCH 2 PATCH TRANSDERMA (08:54)
[2024-04-23] MEDS: Aspirin Enteric Coated 81 MG TABLET.DR PO (08:54)
[2024-04-23] MEDS: glipiZIDE 10 MG TABLET PO ×2 (08:54→20:23)
[2024-04-23] MEDS: Empagliflozin 10 MG TABLET PO (08:54)
[2024-04-23] MEDS: SITagliptin Phosphate 100 MG TABLET PO (08:54)
[2024-04-23] MEDS: Lactulose 20 GM/30 ML SOLUTION PO ×2 (08:55→20:23)
[2024-04-23] MEDS: Fluticasone Propionate Nasal 16 GM SPRAY 1 SPRAY NOSTRIL-B ×2 (08:55→20:23)
[2024-04-23 10:24] VITALS: BP 143/68; PULSE 77; O2SAT 97
[2024-04-23 11:14] LABS: Glucose, Whole Blood 196 mg/dL (60-115)
--- NOTE | 2024-04-23 11:31 | MHC.CM.PN ---
Guardian reported to CM today that she was not able to obtain complete financial info on pt. and will need to be made conservator. [facility] is reviewing if pt can be admitted as [facility] bed hold, cm awaiting response.
--- NOTE | 2024-04-23 14:05 | HO.PM.IMPN ---
Subjective Subjective Date of Service: 04/23/24 Interval History: No acute issues overnight awaiting placement Review of Systems Denies chest pain Denies shortness of breath Denies nausea vomiting diarrhea Denies fever chills Physical Exam Vital Signs: Vital Signs: Last Vital Signs Temp 97.5 F 04/23/24 07:43 Pulse 77 04/23/24 10:24 Resp 18 04/23/24 07:43 BP 143/68 H 04/23/24 10:24 Pulse Ox 97 04/23/24 10:24 O2 Del Method Room Air 04/23/24 07:43 BMI result Body Mass Index 24.5 Const: Other: Awake alert no acute distress Resp: Other: Clear to auscultation bilaterally no rales rhonchi or wheezes Cardio: Other: No S4; positive S1-S2; no S3 murmurs rubs or gallops GI: Other: Soft nontender nondistended normoactive bowel sounds Extrem: Other: No edema bilaterally Objective Data Active Medications Acetaminophen (Acetaminophen 325 Mg Tablet) 650 mg PO Q4H PRN PRN Reason: headache or pain Last Admin: 04/22/24 09:03 Dose: 650 mg Documented By: JIMY Acetaminophen/Butalbital/Caffeine (Butalb/Acetamin/Caff 50/325/40 Tablet) 1 tab PO Q4H PRN PRN Reason: Headache Last Admin: 04/23/24 06:25 Dose: 1 tab Documented By: AUSTIN Amitriptyline HCl (Amitriptyline Hcl 25 Mg Tablet) 25 mg PO BEDTIME [facility] Last Admin: 04/22/24 22:22 Dose: Not Given Documented By: AUSTIN Non-Admin Reason: Patient Refused Aspirin (Aspirin Enteric Coated 81 Mg Tablet.) 81 mg PO DAILY [facility] Last Admin: 04/23/24 08:54 Dose: 81 mg Documented By: RICHIE Atorvastatin Calcium (Atorvastatin Calcium 10 Mg Tablet) 10 mg PO BEDTIME [facility] Last Admin: 04/22/24 22:23 Dose: 10 mg Documented By: AUSTIN Empagliflozin (Empagliflozin 10 Mg Tablet) 10 mg PO DAILY [facility] Last Admin: 04/23/24 08:54 Dose: 10 mg Documented By: RICHIE Enoxaparin Sodium (Enoxaparin Sodium 40 Mg/0.4 Ml Syringe) 40 mg SUBCUT Q24H [facility] Last Admin: 04/22/24 22:22 Dose: Not Given Documented By: AUSTIN Non-Admin Reason: Patient Refused Fluticasone Propionate (Fluticasone Propionate Nasal 16 Gm [place]) 1 spray NOSTRIL-B BID [facility] Last Admin: 04/23/24 08:55 Dose: 1 spray Documented By: RICHIE Glipizide (Glipizide 10 Mg Tablet) 10 mg PO BID [facility] Last Admin: 04/23/24 08:54 Dose: 10 mg Documented By: RICHIE Lactulose (Lactulose 20 Gm/30 Ml Solution) 20 gm PO BID [facility] Last Admin: 04/23/24 08:55 Dose: 20 gm Documented By: RICHIE Lidocaine (Lidocaine 4 % Patch Adh..Patch) 2 patch TRANSDERMA DAILY [facility]; Protocol Last Admin: 04/23/24 08:54 Dose: 2 patch Documented By: RICHIE Lidocaine (Lidocaine 4 % Patch Adh..Patch) 1 patch TRANSDERMA DAILY [facility]; Protocol Last Admin: 04/23/24 08:55 Dose: Not Given Documented By: RICHIE Non-Admin Reason: Patient Refused Melatonin (Melatonin 3 Mg Tablet) 3 mg PO BEDTIME PRN PRN Reason: Insomnia Last Admin: 04/22/24 22:23 Dose: 3 mg Documented By: AUSTIN Nitroglycerin (Nitroglycerin 0.4 Mg Tab.Subl) 0.4 mg SUBLINGUAL Q5M PRN PRN Reason: angina Omeprazole (Omeprazole 20 Mg Capsule.Dr) 20 mg PO DAILY@0630 [facility] Last Admin: 04/23/24 05:30 Dose: 20 mg Documented By: AUSTIN Sitagliptin Phosphate (Sitagliptin Phosphate 100 Mg Tablet) 100 mg PO DAILY [facility] Last Admin: 04/23/24 08:54 Dose: 100 mg Documented By: RICHIE Sodium Chloride (0.9 % Sodium Chloride Flush 3 Ml Syringe) 3 ml IVFLUSH QSHIFT [facility] Last Admin: 04/23/24 10:20 Dose: Not Given Documented By: RICHIE Non-Admin Reason: Previously Administered Labs 03/24/24 16:45 Labs: Laboratory Results - last 24 hr 04/22/24 04/22/24 04/23/24 16:24 19:32 07:47 POC Glucose 164 H 209 H 115 04/23/24 11:06 POC Glucose 196 H Assessment and Plan (1) Fall: Status: Acute (2) Cognitive impairment: Status: Acute Plan 88F PMH vascular dementia, diabetes, hypertension, hyperlipidemia, peptic ulcer disease presented with mechanical fall complicated left foot fracture Mechanical fall with left foot fracture PT rec SNF pain management w Tramadol prn, tylenol Headache PRN Fiorecit Diabetes Continue glipizide, Januvia, Jardiance, monitor POC Vascular dementia w cognitive impairment Stable, guardianship pending Peptic ulcer disease Continue omeprazole DVT prophylaxis with Lovenox Full Code reason for continued hospitalization: Awaiting guardianship and placement Quality Stroke Does the patient have a stroke diagnosis?: No VTE Prior VTE?: No VTE Risk Level:: Medical - moderate - high VTE Device Contraindication: Treatment Not Indicated VTE Drug Contraindication: N/A - Med Ordered
[2024-04-23 16:00] VITALS: BP 114/67; PULSE 79; RESP 18; TEMP 36.5; O2SAT 99
[2024-04-23 16:14] LABS: Glucose, Whole Blood 117 mg/dL (60-115)
[2024-04-23 20:00] VITALS: BP 129/79; PULSE 93; RESP 18; TEMP 36.6; O2SAT 99
[2024-04-23] MEDS: Atorvastatin Calcium 10 MG TABLET PO (20:23)
[2024-04-23] MEDS: Melatonin 3 MG TABLET PO (20:23)
[2024-04-23 20:55] LABS: Glucose, Whole Blood 222 mg/dL (60-115)
[2024-04-24] VITALS: BP 125/65; PULSE 80; RESP 20; TEMP 36.3; O2SAT 100
[2024-04-24] MEDS: Omeprazole 20 MG CAPSULE.DR PO (06:04)
[2024-04-24 07:46] LABS: Glucose, Whole Blood 79 mg/dL (60-115)
[2024-04-24 07:57] VITALS: BP 143/65; PULSE 74; RESP 20; TEMP 36.3; O2SAT 98
[2024-04-24] MEDS: Lactulose 20 GM/30 ML SOLUTION PO (09:17)
[2024-04-24] MEDS: Aspirin Enteric Coated 81 MG TABLET.DR PO (09:18)
[2024-04-24] MEDS: SITagliptin Phosphate 100 MG TABLET PO (09:18)
[2024-04-24] MEDS: Lidocaine 4 % Patch ADH..PATCH 2 PATCH TRANSDERMA (09:18)
[2024-04-24] MEDS: Empagliflozin 10 MG TABLET PO (09:18)
[2024-04-24] MEDS: glipiZIDE 10 MG TABLET PO ×2 (09:18→19:45)
[2024-04-24] MEDS: Lidocaine 4 % Patch ADH..PATCH 1 PATCH TRANSDERMA (09:19)
[2024-04-24 11:33] LABS: Glucose, Whole Blood 232 mg/dL (60-115)
--- NOTE | 2024-04-24 15:22 | P.PNIM_ITS ---
Subjective Subjective Date of Service: 04/24/24 Interval History: No acute issues overnight awaiting placement Review of Systems Denies chest pain Denies shortness of breath Denies nausea vomiting diarrhea Denies fever chills Physical Exam 2 Vital Signs: Vital Signs: Last Vital Signs Temp 97.4 F 04/24/24 07:57 Pulse 74 04/24/24 07:57 Resp 20 04/24/24 07:57 BP 143/65 H 04/24/24 07:57 Pulse Ox 98 04/24/24 07:57 O2 Del Method Room Air 04/24/24 07:57 BMI result Body Mass Index 24.5 Const: Other: Awake alert no acute distress Resp: Other: Clear to auscultation bilaterally no rales rhonchi or wheezes Cardio: Other: No S4; positive S1-S2; no S3 murmurs rubs or gallops GI: Other: Soft nontender nondistended normoactive bowel sounds Extrem: Other: No edema bilaterally Objective Data Active Medications Acetaminophen (Acetaminophen 325 Mg Tablet) 650 mg PO Q4H PRN PRN Reason: headache or pain Last Admin: 04/22/24 09:03 Dose: 650 mg Documented By: JIMY Acetaminophen/Butalbital/Caffeine (Butalb/Acetamin/Caff 50/325/40 Tablet) 1 tab PO Q4H PRN PRN Reason: Headache Last Admin: 04/23/24 06:25 Dose: 1 tab Documented By: AUSTIN Amitriptyline HCl (Amitriptyline Hcl 25 Mg Tablet) 25 mg PO BEDTIME [facility] Last Admin: 04/23/24 20:26 Dose: Not Given Documented By: LORA Non-Admin Reason: Patient Refused Aspirin (Aspirin Enteric Coated 81 Mg Tablet.) 81 mg PO DAILY [facility] Last Admin: 04/24/24 09:18 Dose: 81 mg Documented By: NATHANAEL Atorvastatin Calcium (Atorvastatin Calcium 10 Mg Tablet) 10 mg PO BEDTIME [facility] Last Admin: 04/23/24 20:23 Dose: 10 mg Documented By: LORA Empagliflozin (Empagliflozin 10 Mg Tablet) 10 mg PO DAILY [facility] Last Admin: 04/24/24 09:18 Dose: 10 mg Documented By: NATHANAEL Enoxaparin Sodium (Enoxaparin Sodium 40 Mg/0.4 Ml Syringe) 40 mg SUBCUT Q24H [facility] Last Admin: 04/23/24 20:26 Dose: Not Given Documented By: LORA Non-Admin Reason: Patient Refused Fluticasone Propionate (Fluticasone Propionate Nasal 16 Gm [place]) 1 spray NOSTRIL-B BID [facility] Last Admin: 04/24/24 09:27 Dose: Not Given Documented By: NATHANAEL Non-Admin Reason: Med Not Available Glipizide (Glipizide 10 Mg Tablet) 10 mg PO BID [facility] Last Admin: 04/24/24 09:18 Dose: 10 mg Documented By: NATHANAEL Lactulose (Lactulose 20 Gm/30 Ml Solution) 20 gm PO BID [facility] Last Admin: 04/24/24 09:17 Dose: 20 gm Documented By: NATHANAEL Lidocaine (Lidocaine 4 % Patch Adh..Patch) 2 patch TRANSDERMA DAILY [facility]; Protocol Last Admin: 04/24/24 09:18 Dose: 2 patch Documented By: NATHANAEL Lidocaine (Lidocaine 4 % Patch Adh..Patch) 1 patch TRANSDERMA DAILY [facility]; Protocol Last Admin: 04/24/24 09:19 Dose: 1 patch Documented By: NATHANAEL Melatonin (Melatonin 3 Mg Tablet) 3 mg PO BEDTIME PRN PRN Reason: Insomnia Last Admin: 04/23/24 20:23 Dose: 3 mg Documented By: LORA Nitroglycerin (Nitroglycerin 0.4 Mg Tab.Subl) 0.4 mg SUBLINGUAL Q5M PRN PRN Reason: angina Omeprazole (Omeprazole 20 Mg Capsule.Dr) 20 mg PO DAILY@0630 [facility] Last Admin: 04/24/24 06:04 Dose: 20 mg Documented By: LORA Sitagliptin Phosphate (Sitagliptin Phosphate 100 Mg Tablet) 100 mg PO DAILY [facility] Last Admin: 04/24/24 09:18 Dose: 100 mg Documented By: NATHANAEL Sodium Chloride (0.9 % Sodium Chloride Flush 3 Ml Syringe) 3 ml IVFLUSH QSHIFT [facility] Last Admin: 04/24/24 09:17 Dose: Not Given Documented By: NATHANAEL Non-Admin Reason: No Access Labs 03/24/24 16:45 Labs: Laboratory Results - last 24 hr 04/23/24 04/23/24 04/24/24 16:01 20:40 07:36 POC Glucose 117 H 222 H 79 04/24/24 11:29 POC Glucose 232 H Assessment and Plan (1) Cognitive impairment: Status: Acute Plan 88F PMH vascular dementia, diabetes, hypertension, hyperlipidemia, peptic ulcer disease presented with mechanical fall complicated left foot fracture Mechanical fall with left foot fracture PT rec SNF pain management w Tramadol prn, tylenol Headache PRN Fiorecit Diabetes Continue glipizide, Januvia, Jardiance, monitor POC Vascular dementia w cognitive impairment Stable, guardianship pending Peptic ulcer disease Continue omeprazole DVT prophylaxis with Lovenox Full Code reason for continued hospitalization: Awaiting guardianship and placement Quality Stroke Does the patient have a stroke diagnosis?: No VTE Prior VTE?: No VTE Risk Level:: Medical - moderate - high VTE Device Contraindication: Treatment Not Indicated VTE Drug Contraindication: N/A - Med Ordered
[2024-04-24 15:57] VITALS: BP 109/60; PULSE 88; RESP 20; TEMP 36.5; O2SAT 97
[2024-04-24 16:13] LABS: Glucose, Whole Blood 220 mg/dL (60-115)
[2024-04-24] MEDS: Atorvastatin Calcium 10 MG TABLET PO (19:45)
[2024-04-24 20:33] VITALS: BP 124/61; PULSE 92; RESP 18; TEMP 36.7; O2SAT 98
[2024-04-24 20:58] LABS: Glucose, Whole Blood 217 mg/dL (60-115)
[2024-04-24 23:40] VITALS: BP 126/62; PULSE 83; RESP 18; TEMP 36.4
[2024-04-25] MEDS: Omeprazole 20 MG CAPSULE.DR PO (05:24)
[2024-04-25 07:45] LABS: Glucose, Whole Blood 119 mg/dL (60-115)
[2024-04-25 07:49] VITALS: BP 118/78; PULSE 94; RESP 20; TEMP 36.1; O2SAT 98
[2024-04-25] MEDS: Lactulose 20 GM/30 ML SOLUTION PO ×2 (09:47→21:13)
[2024-04-25] MEDS: glipiZIDE 10 MG TABLET PO ×2 (09:48→21:13)
[2024-04-25] MEDS: SITagliptin Phosphate 100 MG TABLET PO (09:48)
[2024-04-25] MEDS: Aspirin Enteric Coated 81 MG TABLET.DR PO (09:48)
[2024-04-25] MEDS: Empagliflozin 10 MG TABLET PO (09:48)
[2024-04-25] MEDS: Lidocaine 4 % Patch ADH..PATCH 2 PATCH TRANSDERMA (09:48)
[2024-04-25] MEDS: Lidocaine 4 % Patch ADH..PATCH 1 PATCH TRANSDERMA (09:49)
[2024-04-25 11:26] LABS: Glucose, Whole Blood 220 mg/dL (60-115)
--- NOTE | 2024-04-25 12:46 | HO.PM.IMPN ---
Subjective Subjective Date of Service: 04/25/24 Interval History: No acute issues overnight awaiting placement Review of Systems Denies chest pain Denies shortness of breath Denies nausea vomiting diarrhea Denies fever chills Physical Exam Vital Signs: Vital Signs: Last Vital Signs Temp 97.0 F 04/25/24 07:49 Pulse 94 04/25/24 07:49 Resp 20 04/25/24 07:49 BP 118/78 04/25/24 07:49 Pulse Ox 98 04/25/24 07:49 O2 Del Method Room Air 04/25/24 07:49 BMI result Body Mass Index 24.5 Const: Other: Awake alert no acute distress Resp: Other: Clear to auscultation bilaterally no rales rhonchi or wheezes Cardio: Other: No S4; positive S1-S2; no S3 murmurs rubs or gallops GI: Other: Soft nontender nondistended normoactive bowel sounds Extrem: Other: No edema bilaterally Objective Data Active Medications Acetaminophen (Acetaminophen 325 Mg Tablet) 650 mg PO Q4H PRN PRN Reason: headache or pain Last Admin: 04/22/24 09:03 Dose: 650 mg Documented By: JIMY Acetaminophen/Butalbital/Caffeine (Butalb/Acetamin/Caff 50/325/40 Tablet) 1 tab PO Q4H PRN PRN Reason: Headache Last Admin: 04/23/24 06:25 Dose: 1 tab Documented By: AUSTIN Amitriptyline HCl (Amitriptyline Hcl 25 Mg Tablet) 25 mg PO BEDTIME [facility] Last Admin: 04/24/24 19:53 Dose: Not Given Documented By: FAHAD Non-Admin Reason: Patient Refused Aspirin (Aspirin Enteric Coated 81 Mg Tablet.) 81 mg PO DAILY [facility] Last Admin: 04/25/24 09:48 Dose: 81 mg Documented By: NATHANAEL Atorvastatin Calcium (Atorvastatin Calcium 10 Mg Tablet) 10 mg PO BEDTIME [facility] Last Admin: 04/24/24 19:45 Dose: 10 mg Documented By: FAHAD Empagliflozin (Empagliflozin 10 Mg Tablet) 10 mg PO DAILY [facility] Last Admin: 04/25/24 09:48 Dose: 10 mg Documented By: NATHANAEL Enoxaparin Sodium (Enoxaparin Sodium 40 Mg/0.4 Ml Syringe) 40 mg SUBCUT Q24H [facility] Last Admin: 04/24/24 19:49 Dose: Not Given Documented By: FAHAD Non-Admin Reason: Patient Refused Fluticasone Propionate (Fluticasone Propionate Nasal 16 Gm [place]) 1 spray NOSTRIL-B BID [facility] Last Admin: 04/25/24 09:49 Dose: Not Given Documented By: NATHANAEL Non-Admin Reason: Patient Refused Glipizide (Glipizide 10 Mg Tablet) 10 mg PO BID [facility] Last Admin: 04/25/24 09:48 Dose: 10 mg Documented By: NATHANAEL Lactulose (Lactulose 20 Gm/30 Ml Solution) 20 gm PO BID [facility] Last Admin: 04/25/24 09:47 Dose: 20 gm Documented By: NATHANAEL Lidocaine (Lidocaine 4 % Patch Adh..Patch) 2 patch TRANSDERMA DAILY [facility]; Protocol Last Admin: 04/25/24 09:48 Dose: 2 patch Documented By: NATHANAEL Lidocaine (Lidocaine 4 % Patch Adh..Patch) 1 patch TRANSDERMA DAILY [facility]; Protocol Last Admin: 04/25/24 09:49 Dose: 1 patch Documented By: NATHANAEL Melatonin (Melatonin 3 Mg Tablet) 3 mg PO BEDTIME PRN PRN Reason: Insomnia Last Admin: 04/23/24 20:23 Dose: 3 mg Documented By: LORA Nitroglycerin (Nitroglycerin 0.4 Mg Tab.Subl) 0.4 mg SUBLINGUAL Q5M PRN PRN Reason: angina Omeprazole (Omeprazole 20 Mg Capsule.Dr) 20 mg PO DAILY@0630 [facility] Last Admin: 04/25/24 05:24 Dose: 20 mg Documented By: FAHAD Sitagliptin Phosphate (Sitagliptin Phosphate 100 Mg Tablet) 100 mg PO DAILY [facility] Last Admin: 04/25/24 09:48 Dose: 100 mg Documented By: NATHANAEL Sodium Chloride (0.9 % Sodium Chloride Flush 3 Ml Syringe) 3 ml IVFLUSH QSHIFT [facility] Last Admin: 04/25/24 08:51 Dose: Not Given Documented By: NATHANAEL Non-Admin Reason: No Access Labs 03/24/24 16:45 Labs: Laboratory Results - last 24 hr 04/24/24 04/24/24 04/25/24 16:09 20:53 07:29 POC Glucose 220 H 217 H 119 H 04/25/24 11:16 POC Glucose 220 H Assessment and Plan (1) Cognitive impairment: Status: Acute Plan 88F PMH vascular dementia, diabetes, hypertension, hyperlipidemia, peptic ulcer disease presented with mechanical fall complicated left foot fracture Mechanical fall with left foot fracture PT rec SNF pain management w Tramadol prn, tylenol Headache PRN Fiorecit Diabetes Continue glipizide, Januvia, Jardiance, monitor POC Vascular dementia w cognitive impairment Stable, guardianship pending Peptic ulcer disease Continue omeprazole DVT prophylaxis with Lovenox Full Code reason for continued hospitalization: Awaiting guardianship and placement Quality Stroke Does the patient have a stroke diagnosis?: No VTE Prior VTE?: No VTE Risk Level:: Medical - moderate - high VTE Device Contraindication: Treatment Not Indicated VTE Drug Contraindication: N/A - Med Ordered
[2024-04-25 16:00] VITALS: BP 125/60; PULSE 86; RESP 20; TEMP 36.3; O2SAT 96
[2024-04-25 16:19] LABS: Glucose, Whole Blood 215 mg/dL (60-115)
[2024-04-25] MEDS: Atorvastatin Calcium 10 MG TABLET PO (21:13)
[2024-04-25 21:16] LABS: Glucose, Whole Blood 146 mg/dL (60-115)
[2024-04-25] MEDS: Fluticasone Propionate Nasal 16 GM SPRAY 1 SPRAY NOSTRIL-B (21:17)
[2024-04-26] VITALS: BP 141/74; PULSE 68; RESP 16; TEMP 36; O2SAT 99
[2024-04-26] MEDS: Omeprazole 20 MG CAPSULE.DR PO (05:04)
[2024-04-26 07:46] LABS: Glucose, Whole Blood 102 mg/dL (60-115)
[2024-04-26 08:00] VITALS: BP 161/75; PULSE 76; RESP 20; TEMP 36.4; O2SAT 98
[2024-04-26] MEDS: Fluticasone Propionate Nasal 16 GM SPRAY 1 SPRAY NOSTRIL-B (10:42)
[2024-04-26] MEDS: Aspirin Enteric Coated 81 MG TABLET.DR PO (10:43)
[2024-04-26] MEDS: Empagliflozin 10 MG TABLET PO (10:44)
[2024-04-26] MEDS: SITagliptin Phosphate 100 MG TABLET PO (10:44)
[2024-04-26] MEDS: glipiZIDE 10 MG TABLET PO ×2 (10:45→21:52)
[2024-04-26] MEDS: Lidocaine 4 % Patch ADH..PATCH 2 PATCH TRANSDERMA (10:47)
[2024-04-26] MEDS: Lidocaine 4 % Patch ADH..PATCH 1 PATCH TRANSDERMA (10:51)
[2024-04-26 11:33] LABS: Glucose, Whole Blood 151 mg/dL (60-115)
--- NOTE | 2024-04-26 12:06 | HO.PM.IMPN ---
Subjective Subjective Date of Service: 04/26/24 Interval History: No acute issues overnight awaiting placement Review of Systems Denies chest pain Denies shortness of breath Denies nausea vomiting diarrhea Denies fever chills Physical Exam Vital Signs: Vital Signs: Last Vital Signs Temp 97.6 F 04/26/24 08:00 Pulse 76 04/26/24 08:00 Resp 20 04/26/24 08:00 BP 161/75 H 04/26/24 08:00 Pulse Ox 98 04/26/24 08:00 O2 Del Method Room Air 04/26/24 08:00 BMI result Body Mass Index 24.5 Const: Other: Awake alert no acute distress Resp: Other: Clear to auscultation bilaterally no rales rhonchi or wheezes Cardio: Other: No S4; positive S1-S2; no S3 murmurs rubs or gallops GI: Other: Soft nontender nondistended normoactive bowel sounds Extrem: Other: No edema bilaterally Objective Data Active Medications Acetaminophen (Acetaminophen 325 Mg Tablet) 650 mg PO Q4H PRN PRN Reason: headache or pain Last Admin: 04/22/24 09:03 Dose: 650 mg Documented By: JIMY Acetaminophen/Butalbital/Caffeine (Butalb/Acetamin/Caff 50/325/40 Tablet) 1 tab PO Q4H PRN PRN Reason: Headache Last Admin: 04/23/24 06:25 Dose: 1 tab Documented By: AUSTIN Amitriptyline HCl (Amitriptyline Hcl 25 Mg Tablet) 25 mg PO BEDTIME [facility] Last Admin: 04/25/24 21:15 Dose: Not Given Documented By: SANTO Non-Admin Reason: Patient Refused Aspirin (Aspirin Enteric Coated 81 Mg Tablet.) 81 mg PO DAILY [facility] Last Admin: 04/26/24 10:43 Dose: 81 mg Documented By: KRISHAN Atorvastatin Calcium (Atorvastatin Calcium 10 Mg Tablet) 10 mg PO BEDTIME [facility] Last Admin: 04/25/24 21:13 Dose: 10 mg Documented By: SANTO Empagliflozin (Empagliflozin 10 Mg Tablet) 10 mg PO DAILY [facility] Last Admin: 04/26/24 10:44 Dose: 10 mg Documented By: KRISHAN Enoxaparin Sodium (Enoxaparin Sodium 40 Mg/0.4 Ml Syringe) 40 mg SUBCUT Q24H [facility] Last Admin: 04/25/24 21:13 Dose: Not Given Documented By: SANTO Non-Admin Reason: Patient Refused Fluticasone Propionate (Fluticasone Propionate Nasal 16 Gm [place]) 1 spray NOSTRIL-B BID [facility] Last Admin: 04/26/24 10:42 Dose: 1 spray Documented By: KRISHAN Glipizide (Glipizide 10 Mg Tablet) 10 mg PO BID [facility] Last Admin: 04/26/24 10:45 Dose: 10 mg Documented By: KRISHAN Lactulose (Lactulose 20 Gm/30 Ml Solution) 20 gm PO BID [facility] Last Admin: 04/26/24 10:54 Dose: Not Given Documented By: KRISHAN Non-Admin Reason: Physician Approved Lidocaine (Lidocaine 4 % Patch Adh..Patch) 2 patch TRANSDERMA DAILY [facility]; Protocol Last Admin: 04/26/24 10:47 Dose: 2 patch Documented By: KRISHAN Lidocaine (Lidocaine 4 % Patch Adh..Patch) 1 patch TRANSDERMA DAILY [facility]; Protocol Last Admin: 04/26/24 10:51 Dose: 1 patch Documented By: KRISHAN Melatonin (Melatonin 3 Mg Tablet) 3 mg PO BEDTIME PRN PRN Reason: Insomnia Last Admin: 04/23/24 20:23 Dose: 3 mg Documented By: LORA Nitroglycerin (Nitroglycerin 0.4 Mg Tab.Subl) 0.4 mg SUBLINGUAL Q5M PRN PRN Reason: angina Omeprazole (Omeprazole 20 Mg Capsule.Dr) 20 mg PO DAILY@0630 [facility] Last Admin: 04/26/24 05:04 Dose: 20 mg Documented By: SANTO Sitagliptin Phosphate (Sitagliptin Phosphate 100 Mg Tablet) 100 mg PO DAILY [facility] Last Admin: 04/26/24 10:44 Dose: 100 mg Documented By: KRISHAN Sodium Chloride (0.9 % Sodium Chloride Flush 3 Ml Syringe) 3 ml IVFLUSH QSHIFT [facility] Last Admin: 04/26/24 10:53 Dose: Not Given Documented By: KRISHAN Non-Admin Reason: No Access Labs 03/24/24 16:45 Labs: Laboratory Results - last 24 hr 04/25/24 04/25/24 04/26/24 16:11 21:09 07:29 POC Glucose 215 H 146 H 102 04/26/24 11:10 POC Glucose 151 H Assessment and Plan (1) Cognitive impairment: Status: Acute Plan 88F PMH vascular dementia, diabetes, hypertension, hyperlipidemia, peptic ulcer disease presented with mechanical fall complicated left foot fracture awaiting safe placement 1.Mechanical fall with left foot fracture -PT rec SNF 2.Headache PRN Fiorecit 3.Diabetes -acceptable control on current therapies -lispro correctional scale -adjust as indicated 2.Vascular dementia w cognitive impairment -Stable, guardianship pending Lovenox Full Code reason for continued hospitalization: Awaiting guardianship and placement Quality Stroke Does the patient have a stroke diagnosis?: No VTE Prior VTE?: No VTE Risk Level:: Medical - moderate - high VTE Device Contraindication: Treatment Not Indicated VTE Drug Contraindication: N/A - Med Ordered
--- NOTE | 2024-04-26 12:59 | MHC.CM.PN ---
Tirsoan sent CM more info on Pt's finances, SNF that were looking at pt, have been updated with this informationn.
[2024-04-26 15:09] VITALS: BP 130/65; PULSE 85; RESP 20; TEMP 36.3; O2SAT 94
[2024-04-26 16:17] LABS: Glucose, Whole Blood 245 mg/dL (60-115)
[2024-04-26 19:15] VITALS: BP 140/63; PULSE 88; RESP 20; TEMP 36.1; O2SAT 95
[2024-04-26 19:45] LABS: Glucose, Whole Blood 213 mg/dL (60-115)
[2024-04-26] MEDS: Atorvastatin Calcium 10 MG TABLET PO (21:52)
[2024-04-27] VITALS: BP 147/70; PULSE 82; RESP 20; TEMP 36.1; O2SAT 98
[2024-04-27 07:53] LABS: Glucose, Whole Blood 76 mg/dL (60-115)
[2024-04-27 08:00] VITALS: BP 137/63; PULSE 89; RESP 20; TEMP 36.8; O2SAT 97
[2024-04-27] MEDS: glipiZIDE 10 MG TABLET PO ×2 (09:15→20:58)
[2024-04-27] MEDS: Aspirin Enteric Coated 81 MG TABLET.DR PO (09:15)
[2024-04-27] MEDS: SITagliptin Phosphate 100 MG TABLET PO (09:15)
[2024-04-27] MEDS: Lidocaine 4 % Patch ADH..PATCH 2 PATCH TRANSDERMA (09:15)
[2024-04-27] MEDS: Empagliflozin 10 MG TABLET PO (09:15)
[2024-04-27] MEDS: Lidocaine 4 % Patch ADH..PATCH 1 PATCH TRANSDERMA (09:15)
[2024-04-27] MEDS: Fluticasone Propionate Nasal 16 GM SPRAY 1 SPRAY NOSTRIL-B ×2 (09:18→20:58)
[2024-04-27 11:33] LABS: Glucose, Whole Blood 137 mg/dL (60-115)
[2024-04-27 11:53] VITALS: BP 109/55; PULSE 85; RESP 20; TEMP 36.1; O2SAT 96
--- NOTE | 2024-04-27 11:54 | MHC.CM.PN ---
Addendum entered by Anai Wang 04/27/24 13:44: application from [facility] received and sent via scan to guardian with most recent MD progress note. guardian informed that [facility] has an opening for a female. Original Note: CM made telephone inquiries at [facility], [facility], and [facility] today for pt. Application for Jacquie Chong is to be faxed.
--- NOTE | 2024-04-27 12:43 | P.PNIM_ITS ---
Subjective Subjective Date of Service: 04/27/24 Interval History: No acute issues overnight. Therapy advising trial ambulation without cast boot Review of Systems Denies chest pain Denies shortness of breath Denies nausea vomiting diarrhea Denies fever chills Physical Exam 2 Vital Signs: Vital Signs: Last Vital Signs Temp 96.9 F 04/27/24 11:53 Pulse 85 04/27/24 11:53 Resp 20 04/27/24 11:53 BP 109/55 L 04/27/24 11:53 Pulse Ox 96 04/27/24 11:53 O2 Del Method Room Air 04/27/24 11:53 BMI result Body Mass Index 24.5 Const: Other: Awake alert no acute distress Resp: Other: Clear to auscultation bilaterally no rales rhonchi or wheezes Cardio: Other: No S4; positive S1-S2; no S3 murmurs rubs or gallops GI: Other: Soft nontender nondistended normoactive bowel sounds Extrem: Other: No edema bilaterally Objective Data Active Medications Acetaminophen (Acetaminophen 325 Mg Tablet) 650 mg PO Q4H PRN PRN Reason: headache or pain Last Admin: 04/22/24 09:03 Dose: 650 mg Documented By: JIMY Acetaminophen/Butalbital/Caffeine (Butalb/Acetamin/Caff 50/325/40 Tablet) 1 tab PO Q4H PRN PRN Reason: Headache Last Admin: 04/23/24 06:25 Dose: 1 tab Documented By: AUSTIN Amitriptyline HCl (Amitriptyline Hcl 25 Mg Tablet) 25 mg PO BEDTIME [facility] Last Admin: 04/26/24 21:52 Dose: Not Given Documented By: SANTO Non-Admin Reason: Patient Refused Aspirin (Aspirin Enteric Coated 81 Mg Tablet.) 81 mg PO DAILY [facility] Last Admin: 04/27/24 09:15 Dose: 81 mg Documented By: DOUGLAS Atorvastatin Calcium (Atorvastatin Calcium 10 Mg Tablet) 10 mg PO BEDTIME [facility] Last Admin: 04/26/24 21:52 Dose: 10 mg Documented By: SANTO Empagliflozin (Empagliflozin 10 Mg Tablet) 10 mg PO DAILY [facility] Last Admin: 04/27/24 09:15 Dose: 10 mg Documented By: DOUGLAS Enoxaparin Sodium (Enoxaparin Sodium 40 Mg/0.4 Ml Syringe) 40 mg SUBCUT Q24H [facility] Last Admin: 04/26/24 18:23 Dose: Not Given Documented By: ALIDA Non-Admin Reason: Patient Refused Fluticasone Propionate (Fluticasone Propionate Nasal 16 Gm [place]) 1 spray NOSTRIL-B BID [facility] Last Admin: 04/27/24 09:18 Dose: 1 spray Documented By: DOUGLAS Glipizide (Glipizide 10 Mg Tablet) 10 mg PO BID [facility] Last Admin: 04/27/24 09:15 Dose: 10 mg Documented By: DOUGLAS Lactulose (Lactulose 20 Gm/30 Ml Solution) 20 gm PO BID [facility] Last Admin: 04/27/24 09:16 Dose: Not Given Documented By: DOUGLAS Non-Admin Reason: Patient Refused Lidocaine (Lidocaine 4 % Patch Adh..Patch) 2 patch TRANSDERMA DAILY [facility]; Protocol Last Admin: 04/27/24 09:15 Dose: 2 patch Documented By: DOUGLAS Lidocaine (Lidocaine 4 % Patch Adh..Patch) 1 patch TRANSDERMA DAILY [facility]; Protocol Last Admin: 04/27/24 09:15 Dose: 1 patch Documented By: DOUGLAS Melatonin (Melatonin 3 Mg Tablet) 3 mg PO BEDTIME PRN PRN Reason: Insomnia Last Admin: 04/23/24 20:23 Dose: 3 mg Documented By: LORA Nitroglycerin (Nitroglycerin 0.4 Mg Tab.Subl) 0.4 mg SUBLINGUAL Q5M PRN PRN Reason: angina Omeprazole (Omeprazole 20 Mg Capsule.Dr) 20 mg PO DAILY@0630 [facility] Last Admin: 04/27/24 06:36 Dose: Not Given Documented By: SANTO Non-Admin Reason: Patient Refused Sitagliptin Phosphate (Sitagliptin Phosphate 100 Mg Tablet) 100 mg PO DAILY [facility] Last Admin: 04/27/24 09:15 Dose: 100 mg Documented By: DOUGLAS Sodium Chloride (0.9 % Sodium Chloride Flush 3 Ml Syringe) 3 ml IVFLUSH QSHIFT [facility] Last Admin: 04/27/24 09:16 Dose: Not Given Documented By: DOUGLAS Non-Admin Reason: No Access Labs 03/24/24 16:45 Labs: Laboratory Results - last 24 hr 04/26/24 04/26/24 04/27/24 16:11 19:40 07:42 POC Glucose 245 H 213 H 76 04/27/24 10:49 POC Glucose 137 H Assessment and Plan (1) Cognitive impairment: Status: Acute Plan 88F PM vascular dementia, diabetes, hypertension, hyperlipidemia, peptic ulcer disease presented with mechanical fall complicated left foot fracture awaiting safe placement 1.Vascular dementia w cognitive impairment -Stable, guardianship pending 2.Diabetes -acceptable control on current therapies -lispro correctional scale -adjust as indicated 3..Mechanical fall with left foot fracture -PT rec SNF -trial ambulation without cast boot Lovenox Full Code reason for continued hospitalization: Awaiting guardianship and placement Quality Stroke Does the patient have a stroke diagnosis?: No VTE Prior VTE?: No VTE Risk Level:: Medical - moderate - high VTE Device Contraindication: Treatment Not Indicated VTE Drug Contraindication: N/A - Med Ordered
[2024-04-27 15:12] VITALS: BP 114/57; PULSE 90; RESP 20; TEMP 36.8; O2SAT 98
[2024-04-27 16:05] LABS: Glucose, Whole Blood 255 mg/dL (60-115)
[2024-04-27 19:27] LABS: Glucose, Whole Blood 225 mg/dL (60-115)
[2024-04-27 19:33] VITALS: BP 125/55; PULSE 88; RESP 21; TEMP 37.1; O2SAT 97
[2024-04-27] MEDS: Atorvastatin Calcium 10 MG TABLET PO (20:58)
[2024-04-27] MEDS: Lactulose 20 GM/30 ML SOLUTION PO (20:58)
[2024-04-27] MEDS: Amitriptyline HCl 25 MG TABLET PO (20:58)
[2024-04-28] VITALS: BP 165/75; PULSE 80; RESP 20; TEMP 36.4; O2SAT 99
[2024-04-28] MEDS: Omeprazole 20 MG CAPSULE.DR PO (05:40)
[2024-04-28 07:32] LABS: Glucose, Whole Blood 129 mg/dL (60-115)
[2024-04-28 07:56] VITALS: BP 156/56; PULSE 80; RESP 18; TEMP 36.4; O2SAT 98
[2024-04-28] MEDS: SITagliptin Phosphate 100 MG TABLET PO (09:33)
[2024-04-28] MEDS: Lactulose 20 GM/30 ML SOLUTION PO (09:33)
[2024-04-28] MEDS: glipiZIDE 10 MG TABLET PO ×2 (09:34→20:41)
[2024-04-28] MEDS: Lidocaine 4 % Patch ADH..PATCH 2 PATCH TRANSDERMA (09:34)
[2024-04-28] MEDS: Empagliflozin 10 MG TABLET PO (09:34)
[2024-04-28] MEDS: Aspirin Enteric Coated 81 MG TABLET.DR PO (09:34)
[2024-04-28] MEDS: Lidocaine 4 % Patch ADH..PATCH 1 PATCH TRANSDERMA (09:35)
[2024-04-28] MEDS: Fluticasone Propionate Nasal 16 GM SPRAY 1 SPRAY NOSTRIL-B ×2 (09:44→20:47)
[2024-04-28 11:31] LABS: Glucose, Whole Blood 167 mg/dL (60-115)
--- NOTE | 2024-04-28 11:31 | MHC.CM.PN ---
Cm spoke to heavy equipment field mechanic of [facility], [facility]: [phone], he said they do have an opening for a female, and asked that information be sent via email. This was sent today. Guardian notified via telephone voice mail message today.
--- NOTE | 2024-04-28 13:56 | P.PNIM_ITS ---
Subjective Subjective Date of Service: 04/28/24 Interval History: No acute issues overnight. Therapy advising trial ambulation without cast boot Review of Systems Denies chest pain Denies shortness of breath Denies nausea vomiting diarrhea Denies fever chills Physical Exam 2 Vital Signs: Vital Signs: Last Vital Signs Temp 97.6 F 04/28/24 07:56 Pulse 80 04/28/24 07:56 Resp 18 04/28/24 07:56 BP 156/56 H 04/28/24 07:56 Pulse Ox 98 04/28/24 07:56 O2 Del Method Room Air 04/28/24 07:56 BMI result Body Mass Index 24.5 Const: Other: Awake alert no acute distress Resp: Other: Clear to auscultation bilaterally no rales rhonchi or wheezes Cardio: Other: No S4; positive S1-S2; no S3 murmurs rubs or gallops GI: Other: Soft nontender nondistended normoactive bowel sounds Extrem: Other: No edema bilaterally Objective Data Active Medications Acetaminophen (Acetaminophen 325 Mg Tablet) 650 mg PO Q4H PRN PRN Reason: headache or pain Last Admin: 04/22/24 09:03 Dose: 650 mg Documented By: JIMY Acetaminophen/Butalbital/Caffeine (Butalb/Acetamin/Caff 50/325/40 Tablet) 1 tab PO Q4H PRN PRN Reason: Headache Last Admin: 04/23/24 06:25 Dose: 1 tab Documented By: AUSTIN Amitriptyline HCl (Amitriptyline Hcl 25 Mg Tablet) 25 mg PO BEDTIME [facility] Last Admin: 04/27/24 20:58 Dose: 25 mg Documented By: RAH Aspirin (Aspirin Enteric Coated 81 Mg Tablet.) 81 mg PO DAILY [facility] Last Admin: 04/28/24 09:34 Dose: 81 mg Documented By: NATHANAEL Atorvastatin Calcium (Atorvastatin Calcium 10 Mg Tablet) 10 mg PO BEDTIME [facility] Last Admin: 04/27/24 20:58 Dose: 10 mg Documented By: RAH Empagliflozin (Empagliflozin 10 Mg Tablet) 10 mg PO DAILY [facility] Last Admin: 04/28/24 09:34 Dose: 10 mg Documented By: NATHANAEL Enoxaparin Sodium (Enoxaparin Sodium 40 Mg/0.4 Ml Syringe) 40 mg SUBCUT Q24H [facility] Last Admin: 04/27/24 16:45 Dose: Not Given Documented By: KRISHAN Non-Admin Reason: Patient Refused Fluticasone Propionate (Fluticasone Propionate Nasal 16 Gm [place]) 1 spray NOSTRIL-B BID [facility] Last Admin: 04/28/24 09:44 Dose: 1 spray Documented By: NATHANAEL Glipizide (Glipizide 10 Mg Tablet) 10 mg PO BID [facility] Last Admin: 04/28/24 09:34 Dose: 10 mg Documented By: NATHANAEL Lactulose (Lactulose 20 Gm/30 Ml Solution) 20 gm PO BID [facility] Last Admin: 04/28/24 09:33 Dose: 20 gm Documented By: NATHANAEL Lidocaine (Lidocaine 4 % Patch Adh..Patch) 2 patch TRANSDERMA DAILY [facility]; Protocol Last Admin: 04/28/24 09:34 Dose: 2 patch Documented By: NATHANAEL Lidocaine (Lidocaine 4 % Patch Adh..Patch) 1 patch TRANSDERMA DAILY [facility]; Protocol Last Admin: 04/28/24 09:35 Dose: 1 patch Documented By: NATHANAEL Melatonin (Melatonin 3 Mg Tablet) 3 mg PO BEDTIME PRN PRN Reason: Insomnia Last Admin: 04/23/24 20:23 Dose: 3 mg Documented By: LORA Nitroglycerin (Nitroglycerin 0.4 Mg Tab.Subl) 0.4 mg SUBLINGUAL Q5M PRN PRN Reason: angina Omeprazole (Omeprazole 20 Mg Capsule.Dr) 20 mg PO DAILY@0630 [facility] Last Admin: 04/28/24 05:40 Dose: 20 mg Documented By: RAH Sitagliptin Phosphate (Sitagliptin Phosphate 100 Mg Tablet) 100 mg PO DAILY [facility] Last Admin: 04/28/24 09:33 Dose: 100 mg Documented By: NATHANAEL Sodium Chloride (0.9 % Sodium Chloride Flush 3 Ml Syringe) 3 ml IVFLUSH QSHIFT [facility] Last Admin: 04/28/24 09:53 Dose: Not Given Documented By: NATHANAEL Non-Admin Reason: No Access Labs 03/24/24 16:45 Labs: Laboratory Results - last 24 hr 04/27/24 04/27/24 04/28/24 15:54 19:14 07:18 POC Glucose 255 H 225 H 129 H 04/28/24 11:09 POC Glucose 167 H Assessment and Plan (1) Cognitive impairment: Status: Acute Plan 88F PMH vascular dementia, diabetes, hypertension, hyperlipidemia, peptic ulcer disease presented with mechanical fall complicated left foot fracture awaiting safe placement 1.Vascular dementia w cognitive impairment -Stable, guardianship pending 2.Diabetes -acceptable control on current therapies -lispro correctional scale -adjust as indicated 3..Mechanical fall with left foot fracture -PT rec SNF -trial ambulation without cast boot Lovenox Full Code reason for continued hospitalization: Awaiting guardianship and placement Quality Stroke Does the patient have a stroke diagnosis?: No VTE Prior VTE?: No VTE Risk Level:: Medical - moderate - high VTE Device Contraindication: Treatment Not Indicated VTE Drug Contraindication: N/A - Med Ordered
[2024-04-28 15:33] VITALS: BP 117/57; PULSE 98; RESP 18; TEMP 36.8; O2SAT 99
[2024-04-28 16:40] LABS: Glucose, Whole Blood 140 mg/dL (60-115)
[2024-04-28 20:00] VITALS: BP 124/64; PULSE 83; RESP 20; TEMP 36.8; O2SAT 96
[2024-04-28] MEDS: Atorvastatin Calcium 10 MG TABLET PO (20:41)
[2024-04-28 21:06] LABS: Glucose, Whole Blood 267 mg/dL (60-115)
[2024-04-28 23:49] VITALS: BP 151/72; PULSE 82; RESP 20; TEMP 36.3; O2SAT 98
[2024-04-29] MEDS: Omeprazole 20 MG CAPSULE.DR PO (06:21)
[2024-04-29 07:58] VITALS: BP 154/71; PULSE 78; RESP 18; TEMP 36.9; O2SAT 98
[2024-04-29 08:56] LABS: Glucose, Whole Blood 141 mg/dL (60-115)
--- NOTE | 2024-04-29 09:14 | MHC.CM.PN ---
This CM called [facility] to inquire about them receiving pts clinical info that was faxed to them. Per the absence management consultant, she received the fax yesterday and the healthcare facility administrator will be in this afternoon to review everything and then they will be in contact with us.
[2024-04-29] MEDS: Lidocaine 4 % Patch ADH..PATCH 1 PATCH TRANSDERMA (09:18)
[2024-04-29] MEDS: Lidocaine 4 % Patch ADH..PATCH 2 PATCH TRANSDERMA (09:20)
--- NOTE | 2024-04-29 09:20 | MHC.CM.PN ---
This CM called [facility] the class 1 owner operator of [facility] and he stated he will call us back in a half an hour as he was driving.
[2024-04-29] MEDS: Empagliflozin 10 MG TABLET PO (09:21)
[2024-04-29] MEDS: Aspirin Enteric Coated 81 MG TABLET.DR PO (09:21)
[2024-04-29] MEDS: SITagliptin Phosphate 100 MG TABLET PO (09:21)
[2024-04-29] MEDS: glipiZIDE 10 MG TABLET PO ×2 (09:21→19:55)
[2024-04-29] MEDS: Fluticasone Propionate Nasal 16 GM SPRAY 1 SPRAY NOSTRIL-B ×2 (09:22→19:57)
[2024-04-29] MEDS: Lactulose 20 GM/30 ML SOLUTION PO (09:22)
--- NOTE | 2024-04-29 09:57 | HO.PM.IMPN ---
Subjective Subjective Date of Service: 04/29/24 Interval History: Being followed for placement Complaining of bilateral shoulder pain left greater than right with limited range of motion with history of arthritis. No acute issues overnight. Review of Systems All other system reviewed and are negative Physical Exam Vital Signs: Vital Signs: Last Vital Signs Temp 98.4 F 04/29/24 07:58 Pulse 78 04/29/24 07:58 Resp 18 04/29/24 07:58 BP 154/71 H 04/29/24 07:58 Pulse Ox 98 04/29/24 07:58 O2 Del Method Room Air 04/29/24 07:58 BMI result Body Mass Index 24.5 Const: Other: Constitutional : interactive, awake and alert. Neck no JVD Cardiovascular : Regular rate rhythm Respiratory : Clear to auscultation, no respiratory distress Gastrointestinal: soft, Non tender, bowel sounds audible Skin : Warm, Dry Neurological : Alert, no focal deficit Both shoulders no redness or swelling, limited range of motion. Objective Data Active Medications Acetaminophen (Acetaminophen 325 Mg Tablet) 650 mg PO Q4H PRN PRN Reason: headache or pain Last Admin: 04/22/24 09:03 Dose: 650 mg Documented By: JIMY Acetaminophen/Butalbital/Caffeine (Butalb/Acetamin/Caff 50/325/40 Tablet) 1 tab PO Q4H PRN PRN Reason: Headache Last Admin: 04/23/24 06:25 Dose: 1 tab Documented By: AUSTIN Amitriptyline HCl (Amitriptyline Hcl 25 Mg Tablet) 25 mg PO BEDTIME [facility] Last Admin: 04/28/24 20:48 Dose: Not Given Documented By: RAH Non-Admin Reason: Patient Refused Aspirin (Aspirin Enteric Coated 81 Mg Tablet.) 81 mg PO DAILY [facility] Last Admin: 04/29/24 09:21 Dose: 81 mg Documented By: ADAN Atorvastatin Calcium (Atorvastatin Calcium 10 Mg Tablet) 10 mg PO BEDTIME [facility] Last Admin: 04/28/24 20:41 Dose: 10 mg Documented By: RAH Empagliflozin (Empagliflozin 10 Mg Tablet) 10 mg PO DAILY [facility] Last Admin: 04/29/24 09:21 Dose: 10 mg Documented By: ADAN Enoxaparin Sodium (Enoxaparin Sodium 40 Mg/0.4 Ml Syringe) 40 mg SUBCUT Q24H [facility] Last Admin: 04/28/24 17:22 Dose: Not Given Documented By: BRAVO Non-Admin Reason: Patient Refused Fluticasone Propionate (Fluticasone Propionate Nasal 16 Gm [place]) 1 spray NOSTRIL-B BID [facility] Last Admin: 04/29/24 09:22 Dose: 1 spray Documented By: ADAN Glipizide (Glipizide 10 Mg Tablet) 10 mg PO BID [facility] Last Admin: 04/29/24 09:21 Dose: 10 mg Documented By: ADAN Lactulose (Lactulose 20 Gm/30 Ml Solution) 20 gm PO BID [facility] Last Admin: 04/29/24 09:22 Dose: 20 gm Documented By: ADAN Lidocaine (Lidocaine 4 % Patch Adh..Patch) 2 patch TRANSDERMA DAILY [facility]; Protocol Last Admin: 04/29/24 09:20 Dose: 2 patch Documented By: ADAN Lidocaine (Lidocaine 4 % Patch Adh..Patch) 1 patch TRANSDERMA DAILY [facility]; Protocol Last Admin: 04/29/24 09:18 Dose: 1 patch Documented By: ADAN Melatonin (Melatonin 3 Mg Tablet) 3 mg PO BEDTIME PRN PRN Reason: Insomnia Last Admin: 04/23/24 20:23 Dose: 3 mg Documented By: LORA Nitroglycerin (Nitroglycerin 0.4 Mg Tab.Subl) 0.4 mg SUBLINGUAL Q5M PRN PRN Reason: angina Omeprazole (Omeprazole 20 Mg Capsule.Dr) 20 mg PO DAILY@0630 [facility] Last Admin: 04/29/24 06:21 Dose: 20 mg Documented By: RAH Sitagliptin Phosphate (Sitagliptin Phosphate 100 Mg Tablet) 100 mg PO DAILY [facility] Last Admin: 04/29/24 09:21 Dose: 100 mg Documented By: ADAN Sodium Chloride (0.9 % Sodium Chloride Flush 3 Ml Syringe) 3 ml IVFLUSH QSHIFT [facility] Last Admin: 04/29/24 09:20 Dose: Not Given Documented By: ADAN Non-Admin Reason: No Access Labs 03/24/24 16:45 Labs: Laboratory Results - last 24 hr 04/28/24 04/28/24 04/28/24 11:09 16:30 21:02 POC Glucose 167 H 140 H 267 H 04/29/24 07:27 POC Glucose 141 H Assessment and Plan (1) Cognitive impairment: Status: Acute Plan 88F PMH vascular dementia, diabetes, hypertension, hyperlipidemia, peptic ulcer disease presented with mechanical fall complicated left foot fracture awaiting safe placement 1.Vascular dementia w cognitive impairment -Stable, guardianship pending 2.Diabetes -acceptable control on current therapies -lispro correctional scale -adjust as indicated 3..Mechanical fall with left foot fracture -PT rec ambulation in hallway at staff t.i.d., awaiting placement, since patient metatarsal fractures greater than 8-week-old she is okay to wear regular shoes 4. Bilateral shoulder pain recommend Aspercreme/lidocaine patch and [id number] exercises. - Lovenox Full Code reason for continued hospitalization: Awaiting guardianship and placement Quality Stroke Does the patient have a stroke diagnosis?: No VTE Prior VTE?: No VTE Risk Level:: Medical - moderate - high VTE Device Contraindication: Treatment Not Indicated VTE Drug Contraindication: N/A - Med Ordered
[2024-04-29 11:27] LABS: Glucose, Whole Blood 280 mg/dL (60-115)
[2024-04-29 11:30] VITALS: BP 130/61; PULSE 82; RESP 18; TEMP 36.4; O2SAT 99
--- NOTE | 2024-04-29 13:21 | MHC.CM.PN ---
Per CM director, pt will need a conservatorship.
--- NOTE | 2024-04-29 15:11 | MHC.CM.PN ---
Per the pts request, this CM met with pt in her room to discuss some of her concerns. Pt alert and oriented, appropriate during conversation. Pt reported feeling frustrated and that she doesn't understand how Gaston her guardian can strip her rights away from her without her consent. This CM provided active listening for the pt to speak about these frustrations. Pt reports that she would like an apartment to live in, but does not wish to go into a intermediate. This CM explained to the pt that there has been a concern about her not being able to care for herself in an apartment which is why she was appointed a guardian. Pt thanked this CM for listening to her. CM will continue to follow.
[2024-04-29 15:31] LABS: Glucose, Whole Blood 213 mg/dL (60-115)
[2024-04-29 15:40] VITALS: BP 134/63; PULSE 88; RESP 18; TEMP 36.8; O2SAT 95
[2024-04-29] MEDS: Atorvastatin Calcium 10 MG TABLET PO (19:55)
[2024-04-29 20:48] LABS: Glucose, Whole Blood 179 mg/dL (60-115)
[2024-04-30] VITALS: BP 121/60; PULSE 80; RESP 20; TEMP 36.4; O2SAT 97
[2024-04-30] MEDS: Omeprazole 20 MG CAPSULE.DR PO (05:52)
[2024-04-30 08:00] VITALS: BP 153/67; PULSE 78; RESP 20; TEMP 36.4; O2SAT 96
[2024-04-30 08:35] LABS: Glucose, Whole Blood 99 mg/dL (60-115)
[2024-04-30] MEDS: Lactulose 20 GM/30 ML SOLUTION PO (09:34)
[2024-04-30] MEDS: Empagliflozin 10 MG TABLET PO (09:35)
[2024-04-30] MEDS: glipiZIDE 10 MG TABLET PO ×2 (09:35→22:56)
[2024-04-30] MEDS: Aspirin Enteric Coated 81 MG TABLET.DR PO (09:35)
[2024-04-30] MEDS: Lidocaine 4 % Patch ADH..PATCH 1 PATCH TRANSDERMA (09:35)
[2024-04-30] MEDS: SITagliptin Phosphate 100 MG TABLET PO (09:35)
[2024-04-30] MEDS: Lidocaine 4 % Patch ADH..PATCH 2 PATCH TRANSDERMA (09:36)
[2024-04-30] MEDS: Fluticasone Propionate Nasal 16 GM SPRAY 1 SPRAY NOSTRIL-B ×2 (09:49→22:56)
--- NOTE | 2024-04-30 10:34 | P.PNIM_ITS ---
Subjective Subjective Date of Service: 04/30/24 Interval History: Being followed for placement. Offers no acute complaints of pain, tolerating diet, no bowel or bladder complaints, no acute issues overnight. Review of Systems All other system reviewed and are negative. Physical Exam 2 Vital Signs: Vital Signs: Last Vital Signs Temp 97.6 F 04/30/24 08:00 Pulse 78 04/30/24 08:00 Resp 20 04/30/24 08:00 BP 153/67 H 04/30/24 08:00 Pulse Ox 96 04/30/24 08:00 O2 Del Method Room Air 04/30/24 08:00 BMI result Body Mass Index 24.5 Const: Other: Constitutional : interactive, awake and alert. Neck no JVD Cardiovascular : Regular rate rhythm Respiratory : Clear to auscultation, no respiratory distress Gastrointestinal: soft, Non tender, bowel sounds audible Skin : Warm, Dry Neurological : Alert, no focal deficit Both shoulders no redness or swelling, limited range of motion. Objective Data Active Medications Acetaminophen (Acetaminophen 325 Mg Tablet) 650 mg PO Q4H PRN PRN Reason: headache or pain Last Admin: 04/22/24 09:03 Dose: 650 mg Documented By: JIMY Acetaminophen/Butalbital/Caffeine (Butalb/Acetamin/Caff 50/325/40 Tablet) 1 tab PO Q4H PRN PRN Reason: Headache Last Admin: 04/23/24 06:25 Dose: 1 tab Documented By: AUSTIN Amitriptyline HCl (Amitriptyline Hcl 25 Mg Tablet) 25 mg PO BEDTIME [facility] Last Admin: 04/29/24 19:58 Dose: Not Given Documented By: SANTO Non-Admin Reason: Patient Refused Aspirin (Aspirin Enteric Coated 81 Mg Tablet.) 81 mg PO DAILY [facility] Last Admin: 04/30/24 09:35 Dose: 81 mg Documented By: YULISSA Atorvastatin Calcium (Atorvastatin Calcium 10 Mg Tablet) 10 mg PO BEDTIME [facility] Last Admin: 04/29/24 19:55 Dose: 10 mg Documented By: SANTO Empagliflozin (Empagliflozin 10 Mg Tablet) 10 mg PO DAILY [facility] Last Admin: 04/30/24 09:35 Dose: 10 mg Documented By: YULISSA Enoxaparin Sodium (Enoxaparin Sodium 40 Mg/0.4 Ml Syringe) 40 mg SUBCUT Q24H [facility] Last Admin: 04/29/24 17:11 Dose: Not Given Documented By: ADAN Non-Admin Reason: Patient Refused Fluticasone Propionate (Fluticasone Propionate Nasal 16 Gm [place]) 1 spray NOSTRIL-B BID [facility] Last Admin: 04/30/24 09:49 Dose: 1 spray Documented By: YULISSA Glipizide (Glipizide 10 Mg Tablet) 10 mg PO BID [facility] Last Admin: 04/30/24 09:35 Dose: 10 mg Documented By: YULISSA Lactulose (Lactulose 20 Gm/30 Ml Solution) 20 gm PO BID [facility] Last Admin: 04/30/24 09:34 Dose: 20 gm Documented By: YULISSA Lidocaine (Lidocaine 4 % Patch Adh..Patch) 2 patch TRANSDERMA DAILY [facility]; Protocol Last Admin: 04/30/24 09:36 Dose: 2 patch Documented By: YULISSA Lidocaine (Lidocaine 4 % Patch Adh..Patch) 1 patch TRANSDERMA DAILY [facility]; Protocol Last Admin: 04/30/24 09:35 Dose: 1 patch Documented By: YULISSA Melatonin (Melatonin 3 Mg Tablet) 3 mg PO BEDTIME PRN PRN Reason: Insomnia Last Admin: 04/23/24 20:23 Dose: 3 mg Documented By: LORA Nitroglycerin (Nitroglycerin 0.4 Mg Tab.Subl) 0.4 mg SUBLINGUAL Q5M PRN PRN Reason: angina Omeprazole (Omeprazole 20 Mg Capsule.) 20 mg PO DAILY@0630 [facility] Last Admin: 04/30/24 05:52 Dose: 20 mg Documented By: SANTO Sitagliptin Phosphate (Sitagliptin Phosphate 100 Mg Tablet) 100 mg PO DAILY [facility] Last Admin: 04/30/24 09:35 Dose: 100 mg Documented By: YULISSA Sodium Chloride (0.9 % Sodium Chloride Flush 3 Ml Syringe) 3 ml IVFLUSH QSHIFT [facility] Last Admin: 04/30/24 09:36 Dose: Not Given Documented By: YULISSA Non-Admin Reason: No Access Trolamine Salicylate (Trolamine Salicylate 10 % Cream 85 Gm T[place]) 1 appl TOPICAL BID PRN; Protocol PRN Reason: both shoulders Labs 03/24/24 16:45 Labs: Laboratory Results - last 24 hr 04/29/24 04/29/24 04/29/24 11:17 15:17 20:16 POC Glucose 280 H 213 H 179 H 04/30/24 08:12 POC Glucose 99 Assessment and Plan (1) Cognitive impairment: Status: Acute Plan 88F [facility] vascular dementia, diabetes, hypertension, hyperlipidemia, peptic ulcer disease presented with mechanical fall complicated left foot fracture awaiting safe placement 1.Vascular dementia w cognitive impairment -Stable, guardianship pending -continue stool softeners 2.Diabetes -acceptable control on current therapies, will check blood sugars b.i.d. 3..Mechanical fall with left foot fracture -PT rec ambulation in hallway at staff t.i.d., awaiting placement, since patient metatarsal fractures greater than 8-week-old she is okay to wear regular shoes 4. Bilateral shoulder pain recommend Aspercreme/lidocaine patch and [id number] exercises. - Lovenox Full Code reason for continued hospitalization: Awaiting guardianship and placement Quality Stroke Does the patient have a stroke diagnosis?: No VTE Prior VTE?: No VTE Risk Level:: Medical - moderate - high VTE Device Contraindication: Treatment Not Indicated VTE Drug Contraindication: N/A - Med Ordered
[2024-04-30 11:50] LABS: Glucose, Whole Blood 170 mg/dL (60-115)
[2024-04-30 15:41] VITALS: BP 115/79; PULSE 79; RESP 18; TEMP 36.3; O2SAT 98
[2024-04-30 22:07] LABS: Glucose, Whole Blood 179 mg/dL (60-115)
[2024-04-30] MEDS: Atorvastatin Calcium 10 MG TABLET PO (22:55)
[2024-05-01] VITALS: BP 142/73; PULSE 88; RESP 18; TEMP 36.1; O2SAT 99
[2024-05-01] MEDS: Omeprazole 20 MG CAPSULE.DR PO (06:33)
[2024-05-01] MEDS: SITagliptin Phosphate 100 MG TABLET PO (07:40)
[2024-05-01] MEDS: Lactulose 20 GM/30 ML SOLUTION PO (07:40)
[2024-05-01] MEDS: glipiZIDE 10 MG TABLET PO ×2 (07:40→21:42)
[2024-05-01] MEDS: Empagliflozin 10 MG TABLET PO (07:40)
[2024-05-01] MEDS: Aspirin Enteric Coated 81 MG TABLET.DR PO (07:40)
[2024-05-01] MEDS: Lidocaine 4 % Patch ADH..PATCH 2 PATCH TRANSDERMA (07:41)
[2024-05-01] MEDS: Lidocaine 4 % Patch ADH..PATCH 1 PATCH TRANSDERMA (07:41)
[2024-05-01] MEDS: Fluticasone Propionate Nasal 16 GM SPRAY 1 SPRAY NOSTRIL-B (07:42)
[2024-05-01 08:00] VITALS: BP 146/81; PULSE 81; RESP 17; TEMP 36.6; O2SAT 98
[2024-05-01 08:02] LABS: Glucose, Whole Blood 125 mg/dL (60-115)
[2024-05-01 11:30] LABS: Glucose, Whole Blood 148 mg/dL (60-115)
--- NOTE | 2024-05-01 11:40 | HO.PM.IMPN ---
Subjective Subjective Date of Service: 05/01/24 Interval History: Being followed for placement Offers no acute complaints slept well, no acute pain tolerating diet no nausea no vomiting, no acute events overnight. Review of Systems All other system reviewed and are negative Physical Exam Vital Signs: Vital Signs: Last Vital Signs Temp 97.8 F 05/01/24 08:00 Pulse 81 05/01/24 08:00 Resp 17 05/01/24 08:00 BP 146/81 H 05/01/24 08:00 Pulse Ox 98 05/01/24 08:00 O2 Del Method Room Air 05/01/24 08:00 BMI result Body Mass Index 24.5 Const: Other: Constitutional : interactive, awake and alert. Neck no JVD Cardiovascular : Regular rate rhythm Respiratory : Clear to auscultation, no respiratory distress Gastrointestinal: soft, Non tender, bowel sounds audible Skin : Warm, Dry Neurological : Alert, no focal deficit Both shoulders no redness or swelling, limited range of motion. Objective Data Active Medications Acetaminophen (Acetaminophen 325 Mg Tablet) 650 mg PO Q4H PRN PRN Reason: headache or pain Last Admin: 04/22/24 09:03 Dose: 650 mg Documented By: JIMY Acetaminophen/Butalbital/Caffeine (Butalb/Acetamin/Caff 50/325/40 Tablet) 1 tab PO Q4H PRN PRN Reason: Headache Last Admin: 04/23/24 06:25 Dose: 1 tab Documented By: AUSTIN Amitriptyline HCl (Amitriptyline Hcl 25 Mg Tablet) 25 mg PO BEDTIME [facility] Last Admin: 04/30/24 20:41 Dose: Not Given Documented By: BETO Non-Admin Reason: Patient Refused Aspirin (Aspirin Enteric Coated 81 Mg Tablet.) 81 mg PO DAILY [facility] Last Admin: 05/01/24 07:40 Dose: 81 mg Documented By: ABRAHAN Atorvastatin Calcium (Atorvastatin Calcium 10 Mg Tablet) 10 mg PO BEDTIME [facility] Last Admin: 04/30/24 22:55 Dose: 10 mg Documented By: BETO Empagliflozin (Empagliflozin 10 Mg Tablet) 10 mg PO DAILY [facility] Last Admin: 05/01/24 07:40 Dose: 10 mg Documented By: ABRAHAN Enoxaparin Sodium (Enoxaparin Sodium 40 Mg/0.4 Ml Syringe) 40 mg SUBCUT Q24H [facility] Last Admin: 04/30/24 20:39 Dose: Not Given Documented By: BETO Non-Admin Reason: Patient Refused Fluticasone Propionate (Fluticasone Propionate Nasal 16 Gm [place]) 1 spray NOSTRIL-B BID [facility] Last Admin: 05/01/24 07:42 Dose: 1 spray Documented By: ABRAHAN Glipizide (Glipizide 10 Mg Tablet) 10 mg PO BID [facility] Last Admin: 05/01/24 07:40 Dose: 10 mg Documented By: ABRAHAN Lactulose (Lactulose 20 Gm/30 Ml Solution) 20 gm PO BID [facility] Last Admin: 05/01/24 07:40 Dose: 20 gm Documented By: ABRAHAN Lidocaine (Lidocaine 4 % Patch Adh..Patch) 2 patch TRANSDERMA DAILY [facility]; Protocol Last Admin: 05/01/24 07:41 Dose: 2 patch Documented By: ABRAHAN Lidocaine (Lidocaine 4 % Patch Adh..Patch) 1 patch TRANSDERMA DAILY [facility]; Protocol Last Admin: 05/01/24 07:41 Dose: 1 patch Documented By: ABRAHAN Melatonin (Melatonin 3 Mg Tablet) 3 mg PO BEDTIME PRN PRN Reason: Insomnia Last Admin: 04/23/24 20:23 Dose: 3 mg Documented By: LORA Nitroglycerin (Nitroglycerin 0.4 Mg Tab.Subl) 0.4 mg SUBLINGUAL Q5M PRN PRN Reason: angina Omeprazole (Omeprazole 20 Mg Capsule.Dr) 20 mg PO DAILY@0630 [facility] Last Admin: 05/01/24 06:33 Dose: 20 mg Documented By: BETO Sitagliptin Phosphate (Sitagliptin Phosphate 100 Mg Tablet) 100 mg PO DAILY [facility] Last Admin: 05/01/24 07:40 Dose: 100 mg Documented By: ABRAHAN Sodium Chloride (0.9 % Sodium Chloride Flush 3 Ml Syringe) 3 ml IVFLUSH QSHIFT [facility] Last Admin: 05/01/24 07:41 Dose: Not Given Documented By: ABRAHAN Non-Admin Reason: No Access Trolamine Salicylate (Trolamine Salicylate 10 % Cream 85 Gm Tube) 1 appl TOPICAL BID PRN; Protocol PRN Reason: both shoulders Labs 03/24/24 16:45 Labs: Laboratory Results - last 24 hr 04/30/24 04/30/24 05/01/24 11:09 22:03 07:51 POC Glucose 170 H 179 H 125 H 05/01/24 11:26 POC Glucose 148 H Assessment and Plan (1) Cognitive impairment: Status: Acute Plan 88F [facility] vascular dementia, diabetes, hypertension, hyperlipidemia, peptic ulcer disease presented with mechanical fall complicated left foot fracture awaiting safe placement 1.Vascular dementia w cognitive impairment -Stable, guardianship pending -continue stool softeners 2.Diabetes -acceptable control on current therapies, will check blood sugars b.i.d. 3..Mechanical fall with left foot fracture -PT rec ambulation in hallway with staff t.i.d., awaiting placement, since patient metatarsal fractures greater than 8-week-old she is okay to wear regular shoes. 4. Bilateral shoulder pain improved ,recommend Aspercreme/lidocaine patch and [id number] exercises. Seen by OT they provided range of motion exercises printed copies. No further acute care OT warranted due to cognitive impairment [place] 08/02 - Lovenox Full Code reason for continued hospitalization: Awaiting guardianship and placement Quality Stroke Does the patient have a stroke diagnosis?: No VTE Prior VTE?: No VTE Risk Level:: Medical - moderate - high VTE Device Contraindication: Treatment Not Indicated VTE Drug Contraindication: N/A - Med Ordered
[2024-05-01 16:00] VITALS: BP 126/71; PULSE 96; RESP 20; TEMP 36.6; O2SAT 100
[2024-05-01 16:34] LABS: Glucose, Whole Blood 147 mg/dL (60-115)
[2024-05-01 21:24] LABS: Glucose, Whole Blood 203 mg/dL (60-115)
[2024-05-01 21:38] VITALS: BP 120/59; PULSE 78; RESP 20; TEMP 36.8; O2SAT 95
[2024-05-01] MEDS: Atorvastatin Calcium 10 MG TABLET PO (21:42)
[2024-05-02] VITALS: BP 141/72; PULSE 75; RESP 16; TEMP 36.2; O2SAT 98
[2024-05-02] MEDS: Omeprazole 20 MG CAPSULE.DR PO (06:38)
[2024-05-02] MEDS: Lidocaine 4 % Patch ADH..PATCH 1 PATCH TRANSDERMA (07:49)
[2024-05-02] MEDS: Lidocaine 4 % Patch ADH..PATCH 2 PATCH TRANSDERMA (07:51)
[2024-05-02] MEDS: Aspirin Enteric Coated 81 MG TABLET.DR PO (07:53)
[2024-05-02] MEDS: Empagliflozin 10 MG TABLET PO (07:53)
[2024-05-02] MEDS: SITagliptin Phosphate 100 MG TABLET PO (07:54)
[2024-05-02] MEDS: glipiZIDE 10 MG TABLET PO ×2 (07:54→20:10)
[2024-05-02] MEDS: Lactulose 20 GM/30 ML SOLUTION PO (07:54)
[2024-05-02] MEDS: Fluticasone Propionate Nasal 16 GM SPRAY 1 SPRAY NOSTRIL-B (07:55)
[2024-05-02 08:00] VITALS: BP 142/69; PULSE 76; RESP 18; TEMP 36.3; O2SAT 97
[2024-05-02 08:04] LABS: Glucose, Whole Blood 172 mg/dL (60-115)
--- NOTE | 2024-05-02 09:51 | P.PNIM_ITS ---
Subjective Subjective Date of Service: 05/02/24 Interval History: Being followed for placement. No acute complaints, stable shoulder pain, no acute events overnight. Review of Systems All other system reviewed and are negative. Physical Exam 2 Vital Signs: Vital Signs: Last Vital Signs Temp 97.4 F 05/02/24 08:00 Pulse 76 05/02/24 08:00 Resp 18 05/02/24 08:00 BP 142/69 H 05/02/24 08:00 Pulse Ox 97 05/02/24 08:00 O2 Del Method Room Air 05/02/24 08:00 BMI result Body Mass Index 24.5 Const: Other: Constitutional : interactive, awake and alert. Neck no JVD Cardiovascular : Regular rate rhythm Respiratory : Clear to auscultation, no respiratory distress Gastrointestinal: soft, Non tender, bowel sounds audible Skin : Warm, Dry Neurological : Alert, no focal deficit Both shoulders no redness or swelling, limited range of motion. Objective Data Active Medications Acetaminophen (Acetaminophen 325 Mg Tablet) 650 mg PO Q4H PRN PRN Reason: headache or pain Last Admin: 04/22/24 09:03 Dose: 650 mg Documented By: JIMY Acetaminophen/Butalbital/Caffeine (Butalb/Acetamin/Caff 50/325/40 Tablet) 1 tab PO Q4H PRN PRN Reason: Headache Last Admin: 04/23/24 06:25 Dose: 1 tab Documented By: AUSTIN Amitriptyline HCl (Amitriptyline Hcl 25 Mg Tablet) 25 mg PO BEDTIME [facility] Last Admin: 05/01/24 21:46 Dose: Not Given Documented By: SANTO Non-Admin Reason: Patient Refused Aspirin (Aspirin Enteric Coated 81 Mg Tablet.) 81 mg PO DAILY [facility] Last Admin: 05/02/24 07:53 Dose: 81 mg Documented By: GIL Atorvastatin Calcium (Atorvastatin Calcium 10 Mg Tablet) 10 mg PO BEDTIME [facility] Last Admin: 05/01/24 21:42 Dose: 10 mg Documented By: SANTO Empagliflozin (Empagliflozin 10 Mg Tablet) 10 mg PO DAILY [facility] Last Admin: 05/02/24 07:53 Dose: 10 mg Documented By: GIL Enoxaparin Sodium (Enoxaparin Sodium 40 Mg/0.4 Ml Syringe) 40 mg SUBCUT Q24H [facility] Last Admin: 05/01/24 18:06 Dose: Not Given Documented By: ABRAHAN Non-Admin Reason: Patient Refused Fluticasone Propionate (Fluticasone Propionate Nasal 16 Gm [place]) 1 spray NOSTRIL-B BID [facility] Last Admin: 05/02/24 07:55 Dose: 1 spray Documented By: GIL Glipizide (Glipizide 10 Mg Tablet) 10 mg PO BID [facility] Last Admin: 05/02/24 07:54 Dose: 10 mg Documented By: GIL Lactulose (Lactulose 20 Gm/30 Ml Solution) 20 gm PO BID [facility] Last Admin: 05/02/24 07:54 Dose: 20 gm Documented By: GIL Lidocaine (Lidocaine 4 % Patch Adh..Patch) 2 patch TRANSDERMA DAILY [facility]; Protocol Last Admin: 05/02/24 07:51 Dose: 2 patch Documented By: GIL Lidocaine (Lidocaine 4 % Patch Adh..Patch) 1 patch TRANSDERMA DAILY [facility]; Protocol Last Admin: 05/02/24 07:49 Dose: 1 patch Documented By: GIL Melatonin (Melatonin 3 Mg Tablet) 3 mg PO BEDTIME PRN PRN Reason: Insomnia Last Admin: 04/23/24 20:23 Dose: 3 mg Documented By: LORA Nitroglycerin (Nitroglycerin 0.4 Mg Tab.Subl) 0.4 mg SUBLINGUAL Q5M PRN PRN Reason: angina Omeprazole (Omeprazole 20 Mg Capsule.Dr) 20 mg PO DAILY@0630 [facility] Last Admin: 05/02/24 06:38 Dose: 20 mg Documented By: SANTO Sitagliptin Phosphate (Sitagliptin Phosphate 100 Mg Tablet) 100 mg PO DAILY [facility] Last Admin: 05/02/24 07:54 Dose: 100 mg Documented By: GIL Sodium Chloride (0.9 % Sodium Chloride Flush 3 Ml Syringe) 3 ml IVFLUSH QSHIFT [facility] Last Admin: 05/02/24 07:54 Dose: Not Given Documented By: GIL Non-Admin Reason: No IV access Trolamine Salicylate (Trolamine Salicylate 10 % Cream 85 Gm Tube) 1 appl TOPICAL BID PRN; Protocol PRN Reason: both shoulders Labs 03/24/24 16:45 Labs: Laboratory Results - last 24 hr 05/01/24 05/01/24 05/01/24 11:26 16:10 21:19 POC Glucose 148 H 147 H 203 H 05/02/24 08:00 POC Glucose 172 H Assessment and Plan (1) Cognitive impairment: Status: Acute Plan 88F [facility] vascular dementia, diabetes, hypertension, hyperlipidemia, peptic ulcer disease presented with mechanical fall complicated left foot fracture awaiting safe placement 1.Vascular dementia w cognitive impairment -Stable, guardianship pending -continue stool softeners 2.Diabetes -acceptable control on current therapies, check blood sugars daily. 3..Mechanical fall with left foot fracture -PT rec ambulation in hallway with staff t.i.d., awaiting placement, since patient metatarsal fractures greater than 8-week-old she is okay to wear regular shoes. 4. Bilateral shoulder pain improved ,recommend to cont. Aspercreme/lidocaine patch and [id number] exercises. Seen by OT they provided range of motion exercises printed copies. No further acute care OT warranted due to cognitive impairment [place] 08/02 - Lovenox Full Code reason for continued hospitalization: Awaiting guardianship and placement Quality Stroke Does the patient have a stroke diagnosis?: No VTE Prior VTE?: No VTE Risk Level:: Medical - moderate - high VTE Device Contraindication: Treatment Not Indicated VTE Drug Contraindication: N/A - Med Ordered
[2024-05-02 11:19] LABS: Glucose, Whole Blood 222 mg/dL (60-115)
[2024-05-02 16:00] VITALS: BP 120/60; PULSE 80; RESP 18; TEMP 36.6; O2SAT 98
[2024-05-02 16:25] LABS: Glucose, Whole Blood 156 mg/dL (60-115)
[2024-05-02] MEDS: Atorvastatin Calcium 10 MG TABLET PO (20:10)
[2024-05-02 22:15] LABS: Glucose, Whole Blood 157 mg/dL (60-115)
[2024-05-02 23:26] VITALS: BP 147/67; PULSE 80; RESP 18; TEMP 36.1; O2SAT 98
[2024-05-03] MEDS: Omeprazole 20 MG CAPSULE.DR PO (05:00)
[2024-05-03 07:09] LABS: Glucose, Whole Blood 101 mg/dL (60-115)
[2024-05-03 08:00] VITALS: BP 155/74; PULSE 79; RESP 20; TEMP 36.8; O2SAT 97
[2024-05-03] MEDS: Lidocaine 4 % Patch ADH..PATCH 2 PATCH TRANSDERMA (10:37)
[2024-05-03] MEDS: Aspirin Enteric Coated 81 MG TABLET.DR PO (10:38)
[2024-05-03] MEDS: SITagliptin Phosphate 100 MG TABLET PO (10:38)
[2024-05-03] MEDS: glipiZIDE 10 MG TABLET PO ×2 (10:38→20:31)
[2024-05-03] MEDS: Empagliflozin 10 MG TABLET PO (10:38)
[2024-05-03] MEDS: Lidocaine 4 % Patch ADH..PATCH 1 PATCH TRANSDERMA (10:38)
[2024-05-03] MEDS: Fluticasone Propionate Nasal 16 GM SPRAY 1 SPRAY NOSTRIL-B (10:39)
[2024-05-03] MEDS: Lactulose 20 GM/30 ML SOLUTION PO (10:43)
--- NOTE | 2024-05-03 11:30 | HO.PM.IMPN ---
Subjective Subjective Date of Service: 05/03/24 Interval History: c/o bilateral shoulder pain Review of Systems Review of Systems: Yes all other systems are reviewed and are negative Physical Exam Vital Signs: Vital Signs: Last Vital Signs Temp 98.3 F 05/03/24 08:00 Pulse 79 05/03/24 08:00 Resp 20 05/03/24 08:00 BP 155/74 H 05/03/24 08:00 Pulse Ox 97 05/03/24 08:00 O2 Del Method Room Air 05/03/24 08:00 BMI result Body Mass Index 24.5 Gen: in no acute distress HEENT: sclera anicteric, moist mucus membranes Neck: supple Lungs: clear to auscultation bilaterally Heart: regular rate and rhythm, no murmurs Abd: soft, non-tender, non-distended Ext: R>L shoulder impingement Skin: warm/well-perfused Neuro: alert, no focal weakness Psych: impaired insight Objective Data Active Medications Acetaminophen (Acetaminophen 325 Mg Tablet) 650 mg PO Q4H PRN PRN Reason: headache or pain Last Admin: 04/22/24 09:03 Dose: 650 mg Documented By: JIMY Acetaminophen/Butalbital/Caffeine (Butalb/Acetamin/Caff 50/325/40 Tablet) 1 tab PO Q4H PRN PRN Reason: Headache Last Admin: 04/23/24 06:25 Dose: 1 tab Documented By: AUSTIN Amitriptyline HCl (Amitriptyline Hcl 25 Mg Tablet) 25 mg PO BEDTIME [facility] Last Admin: 05/02/24 20:17 Dose: Not Given Documented By: SANTO Non-Admin Reason: Patient Refused Aspirin (Aspirin Enteric Coated 81 Mg Tablet.) 81 mg PO DAILY [facility] Last Admin: 05/03/24 10:38 Dose: 81 mg Documented By: ALIDA Atorvastatin Calcium (Atorvastatin Calcium 10 Mg Tablet) 10 mg PO BEDTIME [facility] Last Admin: 05/02/24 20:10 Dose: 10 mg Documented By: SANTO Empagliflozin (Empagliflozin 10 Mg Tablet) 10 mg PO DAILY [facility] Last Admin: 05/03/24 10:38 Dose: 10 mg Documented By: ALIDA Enoxaparin Sodium (Enoxaparin Sodium 40 Mg/0.4 Ml Syringe) 40 mg SUBCUT Q24H [facility] Last Admin: 05/02/24 20:16 Dose: Not Given Documented By: SANTO Non-Admin Reason: Patient Refused Fluticasone Propionate (Fluticasone Propionate Nasal 16 Gm [place]) 1 spray NOSTRIL-B BID [facility] Last Admin: 05/03/24 10:39 Dose: 1 spray Documented By: ALIDA Glipizide (Glipizide 10 Mg Tablet) 10 mg PO BID [facility] Last Admin: 05/03/24 10:38 Dose: 10 mg Documented By: ALIDA Lactulose (Lactulose 20 Gm/30 Ml Solution) 20 gm PO BID [facility] Last Admin: 05/03/24 10:43 Dose: 20 gm Documented By: ALIDA Lidocaine (Lidocaine 4 % Patch Adh..Patch) 2 patch TRANSDERMA DAILY [facility]; Protocol Last Admin: 05/03/24 10:37 Dose: 2 patch Documented By: ALIDA Lidocaine (Lidocaine 4 % Patch Adh..Patch) 1 patch TRANSDERMA DAILY [facility]; Protocol Last Admin: 05/03/24 10:38 Dose: 1 patch Documented By: ALIDA Melatonin (Melatonin 3 Mg Tablet) 3 mg PO BEDTIME PRN PRN Reason: Insomnia Last Admin: 04/23/24 20:23 Dose: 3 mg Documented By: LORA Nitroglycerin (Nitroglycerin 0.4 Mg Tab.Subl) 0.4 mg SUBLINGUAL Q5M PRN PRN Reason: angina Omeprazole (Omeprazole 20 Mg Capsule.Dr) 20 mg PO DAILY@0630 [facility] Last Admin: 05/03/24 05:00 Dose: 20 mg Documented By: SANTO Sitagliptin Phosphate (Sitagliptin Phosphate 100 Mg Tablet) 100 mg PO DAILY [facility] Last Admin: 05/03/24 10:38 Dose: 100 mg Documented By: ALIDA Sodium Chloride (0.9 % Sodium Chloride Flush 3 Ml Syringe) 3 ml IVFLUSH QSHIFT [facility] Last Admin: 05/03/24 10:36 Dose: Not Given Documented By: ALIDA Non-Admin Reason: No Access Trolamine Salicylate (Trolamine Salicylate 10 % Cream 85 Gm Tube) 1 appl TOPICAL BID PRN; Protocol PRN Reason: both shoulders Labs 03/24/24 16:45 Labs: Laboratory Results - last 24 hr 05/02/24 05/02/24 05/03/24 16:02 22:11 06:56 POC Glucose 156 H 157 H 101 Assessment and Plan (1) Cognitive impairment: Status: Acute Plan d41 88yo F with vascular dementia, diabetes, hypertension, hyperlipidemia, and peptic ulcer disease presented with mechanical fall and found to have left foot fracture awaiting safe placement in ED, admitted to facilitate conservatorship/placement vascular dementia + cognitive impairment - stable, conservatorship pending. MOCA 08/02 DM2 - continue GPZ, empagliflozin, sitagliptin L foot fx - fractures > 8wk old, OK to wear regular shoes, ambulate in hallway with staff tid bilateral shoulder pain/impingement - Aspercreme, lidocaine patch, ROM exercises VTE ppx - LMWH dispo - LTC In my clinical judgment, the patient requires continued inpatient hospitalization for the following reasons: conservatorship/placement Total time managing care of this patient today: 25 minutes. Quality Stroke Does the patient have a stroke diagnosis?: No VTE Prior VTE?: No VTE Risk Level:: Medical - moderate - high VTE Device Contraindication: Treatment Not Indicated VTE Drug Contraindication: N/A - Med Ordered
[2024-05-03 16:00] VITALS: BP 151/66; PULSE 74; RESP 18; TEMP 36.2; O2SAT 95
[2024-05-03 17:06] LABS: Glucose, Whole Blood 138 mg/dL (60-115)
[2024-05-03] MEDS: Atorvastatin Calcium 10 MG TABLET PO (20:31)
[2024-05-03 20:46] VITALS: BP 130/73; PULSE 93; RESP 18; TEMP 36.7; O2SAT 96
[2024-05-03 21:20] LABS: Glucose, Whole Blood 236 mg/dL (60-115)
[2024-05-03 23:59] VITALS: BP 122/60; PULSE 81; RESP 18; TEMP 36.2; O2SAT 97
[2024-05-04] MEDS: Omeprazole 20 MG CAPSULE.DR PO (06:04)
[2024-05-04 07:17] LABS: Glucose, Whole Blood 109 mg/dL (60-115)
[2024-05-04 08:00] VITALS: BP 138/65; PULSE 85; RESP 20; TEMP 36.9; O2SAT 98
[2024-05-04] MEDS: glipiZIDE 10 MG TABLET PO ×2 (09:46→22:23)
[2024-05-04] MEDS: Empagliflozin 10 MG TABLET PO (09:46)
[2024-05-04] MEDS: SITagliptin Phosphate 100 MG TABLET PO (09:46)
[2024-05-04] MEDS: Lidocaine 4 % Patch ADH..PATCH 2 PATCH TRANSDERMA (09:48)
[2024-05-04] MEDS: Lidocaine 4 % Patch ADH..PATCH 1 PATCH TRANSDERMA (09:51)
[2024-05-04] MEDS: Fluticasone Propionate Nasal 16 GM SPRAY 1 SPRAY NOSTRIL-B ×2 (09:52→22:24)
--- NOTE | 2024-05-04 12:11 | HO.PM.IMPN ---
Subjective Subjective Date of Service: 05/04/24 Interval History: shoulder pain slightly improved Review of Systems Review of Systems: Yes all other systems are reviewed and are negative Physical Exam Vital Signs: Vital Signs: Last Vital Signs Temp 98.5 F 05/04/24 08:00 Pulse 85 05/04/24 08:00 Resp 20 05/04/24 08:00 BP 138/65 05/04/24 08:00 Pulse Ox 98 05/04/24 08:00 O2 Del Method Room Air 05/04/24 08:00 BMI result Body Mass Index 24.5 Gen: in no acute distress HEENT: sclera anicteric, moist mucus membranes Neck: supple Lungs: clear to auscultation bilaterally Heart: regular rate and rhythm, no murmurs Abd: soft, non-tender, non-distended Ext: R>L shoulder impingement Skin: warm/well-perfused Neuro: alert, no focal weakness Psych: impaired insight Objective Data Active Medications Acetaminophen (Acetaminophen 325 Mg Tablet) 650 mg PO Q4H PRN PRN Reason: headache or pain Last Admin: 04/22/24 09:03 Dose: 650 mg Documented By: JIMY Acetaminophen/Butalbital/Caffeine (Butalb/Acetamin/Caff 50/325/40 Tablet) 1 tab PO Q4H PRN PRN Reason: Headache Last Admin: 04/23/24 06:25 Dose: 1 tab Documented By: AUSTIN Amitriptyline HCl (Amitriptyline Hcl 25 Mg Tablet) 25 mg PO BEDTIME [facility] Last Admin: 05/03/24 20:32 Dose: Not Given Documented By: SANTO Non-Admin Reason: Patient Refused Aspirin (Aspirin Enteric Coated 81 Mg Tablet.) 81 mg PO DAILY [facility] Last Admin: 05/04/24 09:46 Dose: Not Given Documented By: KRISHAN Non-Admin Reason: Patient Refused Atorvastatin Calcium (Atorvastatin Calcium 10 Mg Tablet) 10 mg PO BEDTIME [facility] Last Admin: 05/03/24 20:31 Dose: 10 mg Documented By: SANTO Empagliflozin (Empagliflozin 10 Mg Tablet) 10 mg PO DAILY [facility] Last Admin: 05/04/24 09:46 Dose: 10 mg Documented By: KRISHAN Enoxaparin Sodium (Enoxaparin Sodium 40 Mg/0.4 Ml Syringe) 40 mg SUBCUT Q24H [facility] Last Admin: 05/03/24 20:32 Dose: Not Given Documented By: SANTO Non-Admin Reason: Patient Refused Fluticasone Propionate (Fluticasone Propionate Nasal 16 Gm [place]) 1 spray NOSTRIL-B BID [facility] Last Admin: 05/04/24 09:52 Dose: 1 spray Documented By: KRISHAN Glipizide (Glipizide 10 Mg Tablet) 10 mg PO BID [facility] Last Admin: 05/04/24 09:46 Dose: 10 mg Documented By: KRISHAN Lactulose (Lactulose 20 Gm/30 Ml Solution) 20 gm PO BID [facility] Last Admin: 05/04/24 09:50 Dose: Not Given Documented By: KRISHAN Non-Admin Reason: Patient Refused Lidocaine (Lidocaine 4 % Patch Adh..Patch) 2 patch TRANSDERMA DAILY [facility]; Protocol Last Admin: 05/04/24 09:48 Dose: 2 patch Documented By: KRISHAN Lidocaine (Lidocaine 4 % Patch Adh..Patch) 1 patch TRANSDERMA DAILY [facility]; Protocol Last Admin: 05/04/24 09:51 Dose: 1 patch Documented By: KRISHAN Melatonin (Melatonin 3 Mg Tablet) 3 mg PO BEDTIME PRN PRN Reason: Insomnia Last Admin: 04/23/24 20:23 Dose: 3 mg Documented By: LORA Nitroglycerin (Nitroglycerin 0.4 Mg Tab.Subl) 0.4 mg SUBLINGUAL Q5M PRN PRN Reason: angina Omeprazole (Omeprazole 20 Mg Capsule.Dr) 20 mg PO DAILY@0630 [facility] Last Admin: 05/04/24 06:04 Dose: 20 mg Documented By: SANTO Sitagliptin Phosphate (Sitagliptin Phosphate 100 Mg Tablet) 100 mg PO DAILY [facility] Last Admin: 05/04/24 09:46 Dose: 100 mg Documented By: KRISHAN Sodium Chloride (0.9 % Sodium Chloride Flush 3 Ml Syringe) 3 ml IVFLUSH QSHIFT [facility] Last Admin: 05/04/24 09:45 Dose: Not Given Documented By: KRISHAN Non-Admin Reason: No Access Trolamine Salicylate (Trolamine Salicylate 10 % Cream 85 Gm Tube) 1 appl TOPICAL BID PRN; Protocol PRN Reason: both shoulders Labs 03/24/24 16:45 Labs: Laboratory Results - last 24 hr 05/03/24 05/03/24 05/04/24 16:51 21:16 07:13 POC Glucose 138 H 236 H 109 Assessment and Plan (1) Cognitive impairment: Status: Acute Plan d42 88yo F with vascular dementia, diabetes, hypertension, hyperlipidemia, and peptic ulcer disease presented with mechanical fall and found to have left foot fracture awaiting safe placement in ED, admitted to facilitate conservatorship/placement vascular dementia + cognitive impairment - stable, conservatorship pending. MOCA 08/02 DM2 - continue GPZ, empagliflozin, sitagliptin L foot fx - fractures > 8wk old, OK to wear regular shoes, ambulate in hallway with staff tid bilateral shoulder pain/impingement - Aspercreme, lidocaine patch, ROM exercises VTE ppx - LMWH dispo - LTC In my clinical judgment, the patient requires continued inpatient hospitalization for the following reasons: conservatorship/placement Total time managing care of this patient today: 25 minutes. Quality Stroke Does the patient have a stroke diagnosis?: No VTE Prior VTE?: No VTE Risk Level:: Medical - moderate - high VTE Device Contraindication: Treatment Not Indicated VTE Drug Contraindication: N/A - Med Ordered
--- NOTE | 2024-05-04 13:40 | MHC.CM.PN ---
EMR REVIEWED, CM REQUESTED UPDATE ON CONSERVATORSHIP DATE VIA EMAIL AND PER GUARDIAN DELIO LINDSEY SHE IS STILL WAITING ON COURT DATE FOR CONSERVATORSHIP, DELIO ALSO ASKING IF CM HAS HEARD ANYTHING FROM [facility] SHE HAS NOT, CM ATTEMPTED TO CONTACT ADMISSIONS AT [facility] HOWEVER NO ANSWER, DETAILED MESSAGE LEFT W/REQUEST FOR CALL BACK. CM WILL CONT TO FOLLOW DC NEEDS.
[2024-05-04 16:00] VITALS: BP 117/68; PULSE 84; RESP 20; TEMP 36.3; O2SAT 99
[2024-05-04 21:19] LABS: Glucose, Whole Blood 265 mg/dL (60-115)
[2024-05-04] MEDS: Atorvastatin Calcium 10 MG TABLET PO (22:24)
[2024-05-05] VITALS: BP 130/63; PULSE 85; RESP 18; TEMP 36.1; O2SAT 98
[2024-05-05] MEDS: Omeprazole 20 MG CAPSULE.DR PO (05:39)
[2024-05-05 07:21] LABS: Glucose, Whole Blood 101 mg/dL (60-115)
[2024-05-05 07:48] VITALS: BP 128/65; PULSE 83; RESP 18; TEMP 36.8; O2SAT 97
[2024-05-05] MEDS: glipiZIDE 10 MG TABLET PO ×2 (09:19→20:15)
[2024-05-05] MEDS: Empagliflozin 10 MG TABLET PO (09:19)
[2024-05-05] MEDS: SITagliptin Phosphate 100 MG TABLET PO (09:19)
[2024-05-05] MEDS: Lidocaine 4 % Patch ADH..PATCH 2 PATCH TRANSDERMA (09:20)
[2024-05-05] MEDS: Lidocaine 4 % Patch ADH..PATCH 1 PATCH TRANSDERMA (09:20)
[2024-05-05] MEDS: Aspirin Enteric Coated 81 MG TABLET.DR PO (09:20)
[2024-05-05] MEDS: Fluticasone Propionate Nasal 16 GM SPRAY 1 SPRAY NOSTRIL-B ×2 (09:21→20:15)
[2024-05-05] MEDS: Lactulose 20 GM/30 ML SOLUTION PO (10:33)
--- NOTE | 2024-05-05 13:03 | P.PNIM_ITS ---
Subjective Subjective Date of Service: 05/05/24 Interval History: no new events or complaints Review of Systems Review of Systems: Yes all other systems are reviewed and are negative Physical Exam 2 Vital Signs: Vital Signs: Last Vital Signs Temp 98.2 F 05/05/24 07:48 Pulse 83 05/05/24 07:48 Resp 18 05/05/24 07:48 BP 128/65 05/05/24 07:48 Pulse Ox 97 05/05/24 07:48 O2 Del Method Room Air 05/05/24 07:48 BMI result Body Mass Index 24.5 Gen: in no acute distress Lungs: clear to auscultation bilaterally Heart: regular rate and rhythm, no murmurs Abd: soft, non-tender, non-distended Ext: R>L shoulder impingement Skin: warm/well-perfused Neuro: alert, no focal weakness Psych: impaired insight Objective Data Active Medications Acetaminophen (Acetaminophen 325 Mg Tablet) 650 mg PO Q4H PRN PRN Reason: headache or pain Last Admin: 04/22/24 09:03 Dose: 650 mg Documented By: JIMY Acetaminophen/Butalbital/Caffeine (Butalb/Acetamin/Caff 50/325/40 Tablet) 1 tab PO Q4H PRN PRN Reason: Headache Last Admin: 04/23/24 06:25 Dose: 1 tab Documented By: AUSTIN Amitriptyline HCl (Amitriptyline Hcl 25 Mg Tablet) 25 mg PO BEDTIME [facility] Last Admin: 05/04/24 22:26 Dose: Not Given Documented By: VERONICA Non-Admin Reason: Patient declined Aspirin (Aspirin Enteric Coated 81 Mg Tablet.) 81 mg PO DAILY [facility] Last Admin: 05/05/24 09:20 Dose: 81 mg Documented By: DOUGLAS Atorvastatin Calcium (Atorvastatin Calcium 10 Mg Tablet) 10 mg PO BEDTIME [facility] Last Admin: 05/04/24 22:24 Dose: 10 mg Documented By: VERONICA Empagliflozin (Empagliflozin 10 Mg Tablet) 10 mg PO DAILY [facility] Last Admin: 05/05/24 09:19 Dose: 10 mg Documented By: DOUGLAS Enoxaparin Sodium (Enoxaparin Sodium 40 Mg/0.4 Ml Syringe) 40 mg SUBCUT Q24H [facility] Last Admin: 05/04/24 17:52 Dose: Not Given Documented By: KRISHAN Non-Admin Reason: Patient Refused Fluticasone Propionate (Fluticasone Propionate Nasal 16 Gm [place]) 1 spray NOSTRIL-B BID [facility] Last Admin: 05/05/24 09:21 Dose: 1 spray Documented By: DOUGLAS Glipizide (Glipizide 10 Mg Tablet) 10 mg PO BID [facility] Last Admin: 05/05/24 09:19 Dose: 10 mg Documented By: DOUGLAS Lactulose (Lactulose 20 Gm/30 Ml Solution) 20 gm PO BID [facility] Last Admin: 05/05/24 10:33 Dose: 20 gm Documented By: KRISHAN Lidocaine (Lidocaine 4 % Patch Adh..Patch) 2 patch TRANSDERMA DAILY [facility]; Protocol Last Admin: 05/05/24 09:20 Dose: 2 patch Documented By: DOUGLAS Lidocaine (Lidocaine 4 % Patch Adh..Patch) 1 patch TRANSDERMA DAILY [facility]; Protocol Last Admin: 05/05/24 09:20 Dose: 1 patch Documented By: DOUGLAS Melatonin (Melatonin 3 Mg Tablet) 3 mg PO BEDTIME PRN PRN Reason: Insomnia Last Admin: 04/23/24 20:23 Dose: 3 mg Documented By: LORA Nitroglycerin (Nitroglycerin 0.4 Mg Tab.Subl) 0.4 mg SUBLINGUAL Q5M PRN PRN Reason: angina Omeprazole (Omeprazole 20 Mg Capsule.Dr) 20 mg PO DAILY@0630 [facility] Last Admin: 05/05/24 05:39 Dose: 20 mg Documented By: VERONICA Sitagliptin Phosphate (Sitagliptin Phosphate 100 Mg Tablet) 100 mg PO DAILY [facility] Last Admin: 05/05/24 09:19 Dose: 100 mg Documented By: DOUGLAS Sodium Chloride (0.9 % Sodium Chloride Flush 3 Ml Syringe) 3 ml IVFLUSH QSHIFT [facility] Last Admin: 05/05/24 09:35 Dose: Not Given Documented By: DOUGLAS Non-Admin Reason: No Access Trolamine Salicylate (Trolamine Salicylate 10 % Cream 85 Gm Tube) 1 appl TOPICAL BID PRN; Protocol PRN Reason: both shoulders Labs 03/24/24 16:45 Labs: Laboratory Results - last 24 hr 05/04/24 05/05/24 21:08 07:08 POC Glucose 265 H 101 Assessment and Plan (1) Cognitive impairment: Status: Acute Plan d43 88yo F with vascular dementia, diabetes, hypertension, hyperlipidemia, and peptic ulcer disease presented with mechanical fall and found to have left foot fracture awaiting safe placement in ED, admitted to facilitate conservatorship/placement vascular dementia + cognitive impairment - stable, conservatorship pending. MOCA 08/02 DM2 - continue GPZ, empagliflozin, sitagliptin L foot fx - fractures > 8wk old, OK to wear regular shoes, ambulate in hallway with staff tid; Ortho consult as for outpt f/u bilateral shoulder pain/impingement - Aspercreme, lidocaine patch, ROM exercises VTE ppx - LMWH dispo - LTC In my clinical judgment, the patient requires continued inpatient hospitalization for the following reasons: conservatorship/placement Total time managing care of this patient today: 25 minutes. Quality Stroke Does the patient have a stroke diagnosis?: No VTE Prior VTE?: No VTE Risk Level:: Medical - moderate - high VTE Device Contraindication: Treatment Not Indicated VTE Drug Contraindication: N/A - Med Ordered
[2024-05-05 15:34] VITALS: BP 103/53; PULSE 75; RESP 16; TEMP 36.2; O2SAT 97
[2024-05-05 19:55] VITALS: BP 122/61; PULSE 90; RESP 22; TEMP 36.7; O2SAT 99
[2024-05-05] MEDS: Butalb/Acetamin/Caff 50/325/40 TABLET 1 TAB PO (20:15)
[2024-05-05] MEDS: Atorvastatin Calcium 10 MG TABLET PO (20:15)
[2024-05-05] MEDS: Melatonin 3 MG TABLET PO (20:15)
[2024-05-05 20:19] LABS: Glucose, Whole Blood 195 mg/dL (60-115)
[2024-05-06] VITALS: BP 133/60; PULSE 78; RESP 20; TEMP 36.1; O2SAT 98
[2024-05-06] MEDS: Omeprazole 20 MG CAPSULE.DR PO (05:16)
[2024-05-06 07:48] LABS: Glucose, Whole Blood 92 mg/dL (60-115)
[2024-05-06 08:00] VITALS: BP 142/81; PULSE 90; RESP 18; TEMP 36.4; O2SAT 99
[2024-05-06] MEDS: Aspirin Enteric Coated 81 MG TABLET.DR PO (08:43)
[2024-05-06] MEDS: glipiZIDE 10 MG TABLET PO ×2 (08:44→20:34)
[2024-05-06] MEDS: Empagliflozin 10 MG TABLET PO (08:44)
[2024-05-06] MEDS: Lactulose 20 GM/30 ML SOLUTION PO (08:44)
[2024-05-06] MEDS: SITagliptin Phosphate 100 MG TABLET PO (08:44)
[2024-05-06] MEDS: Fluticasone Propionate Nasal 16 GM SPRAY 1 SPRAY NOSTRIL-B ×2 (08:44→20:35)
[2024-05-06] MEDS: Lidocaine 4 % Patch ADH..PATCH 1 PATCH TRANSDERMA (08:45)
[2024-05-06] MEDS: Lidocaine 4 % Patch ADH..PATCH 2 PATCH TRANSDERMA (08:45)
--- NOTE | 2024-05-06 09:21 | P.PNIM_ITS ---
Subjective Subjective Date of Service: 05/06/24 Interval History: shoulder pain controlled minimal foot pain Review of Systems Review of Systems: Yes all other systems are reviewed and are negative Physical Exam 2 Vital Signs: Vital Signs: Last Vital Signs Temp 97.6 F 05/06/24 08:00 Pulse 90 05/06/24 08:00 Resp 18 05/06/24 08:00 BP 142/81 H 05/06/24 08:00 Pulse Ox 99 05/06/24 08:00 O2 Del Method Room Air 05/06/24 08:00 BMI result Body Mass Index 24.5 Gen: in no acute distress Lungs: clear to auscultation bilaterally Heart: regular rate and rhythm, no murmurs Abd: soft, non-tender, non-distended Ext: R>L shoulder impingement Skin: warm/well-perfused Neuro: alert, no focal weakness Psych: impaired insight Objective Data Active Medications Acetaminophen (Acetaminophen 325 Mg Tablet) 650 mg PO Q4H PRN PRN Reason: headache or pain Last Admin: 04/22/24 09:03 Dose: 650 mg Documented By: JIMY Acetaminophen/Butalbital/Caffeine (Butalb/Acetamin/Caff 50/325/40 Tablet) 1 tab PO Q4H PRN PRN Reason: Headache Last Admin: 05/05/24 20:15 Dose: 1 tab Documented By: VERONICA Amitriptyline HCl (Amitriptyline Hcl 25 Mg Tablet) 25 mg PO BEDTIME [facility] Last Admin: 05/05/24 20:08 Dose: Not Given Documented By: VERONICA Non-Admin Reason: Pt declined Aspirin (Aspirin Enteric Coated 81 Mg Tablet.) 81 mg PO DAILY [facility] Last Admin: 05/06/24 08:43 Dose: 81 mg Documented By: DOUGLAS Atorvastatin Calcium (Atorvastatin Calcium 10 Mg Tablet) 10 mg PO BEDTIME [facility] Last Admin: 05/05/24 20:15 Dose: 10 mg Documented By: VERONICA Empagliflozin (Empagliflozin 10 Mg Tablet) 10 mg PO DAILY [facility] Last Admin: 05/06/24 08:44 Dose: 10 mg Documented By: DOUGLAS Enoxaparin Sodium (Enoxaparin Sodium 40 Mg/0.4 Ml Syringe) 40 mg SUBCUT Q24H [facility] Last Admin: 05/05/24 16:57 Dose: Not Given Documented By: KRISHAN Non-Admin Reason: Patient Refused Fluticasone Propionate (Fluticasone Propionate Nasal 16 Gm [place]) 1 spray NOSTRIL-B BID [facility] Last Admin: 05/06/24 08:44 Dose: 1 spray Documented By: DOUGLAS Glipizide (Glipizide 10 Mg Tablet) 10 mg PO BID [facility] Last Admin: 05/06/24 08:44 Dose: 10 mg Documented By: DOUGLAS Lactulose (Lactulose 20 Gm/30 Ml Solution) 20 gm PO BID [facility] Last Admin: 05/06/24 08:44 Dose: 20 gm Documented By: DOUGLAS Lidocaine (Lidocaine 4 % Patch Adh..Patch) 2 patch TRANSDERMA DAILY [facility]; Protocol Last Admin: 05/06/24 08:45 Dose: 2 patch Documented By: DOUGLAS Lidocaine (Lidocaine 4 % Patch Adh..Patch) 1 patch TRANSDERMA DAILY [facility]; Protocol Last Admin: 05/06/24 08:45 Dose: 1 patch Documented By: DOUGLAS Melatonin (Melatonin 3 Mg Tablet) 3 mg PO BEDTIME PRN PRN Reason: Insomnia Last Admin: 05/05/24 20:15 Dose: 3 mg Documented By: VERONICA Nitroglycerin (Nitroglycerin 0.4 Mg Tab.Subl) 0.4 mg SUBLINGUAL Q5M PRN PRN Reason: angina Omeprazole (Omeprazole 20 Mg Capsule.Dr) 20 mg PO DAILY@0630 [facility] Last Admin: 05/06/24 05:16 Dose: 20 mg Documented By: VERONICA Sitagliptin Phosphate (Sitagliptin Phosphate 100 Mg Tablet) 100 mg PO DAILY [facility] Last Admin: 05/06/24 08:44 Dose: 100 mg Documented By: DOUGLAS Sodium Chloride (0.9 % Sodium Chloride Flush 3 Ml Syringe) 3 ml IVFLUSH QSHIFT [facility] Last Admin: 05/06/24 09:20 Dose: Not Given Documented By: DOUGLAS Non-Admin Reason: No Access Trolamine Salicylate (Trolamine Salicylate 10 % Cream 141 Gm Tube) 1 appl TOPICAL BID PRN; Protocol PRN Reason: both shoulders Labs 03/24/24 16:45 Labs: Laboratory Results - last 24 hr 05/05/24 05/06/24 20:15 07:44 POC Glucose 195 H 92 Assessment and Plan (1) Cognitive impairment: Status: Acute Plan d44 88yo F with vascular dementia, diabetes, hypertension, hyperlipidemia, and peptic ulcer disease presented with mechanical fall and found to have left foot fracture awaiting safe placement in ED, admitted to facilitate conservatorship/placement vascular dementia + cognitive impairment - stable, conservatorship pending. MOCA 08/02 DM2 - continue GPZ, empagliflozin, sitagliptin L foot fx - fractures > 8wk old, OK to wear regular shoes, ambulate in hallway with staff tid; Ortho consult as for outpt f/u bilateral shoulder pain/impingement - Aspercreme, lidocaine patch, ROM exercises VTE ppx - LMWH dispo - LTC In my clinical judgment, the patient requires continued inpatient hospitalization for the following reasons: conservatorship/placement Total time managing care of this patient today: 25 minutes. Quality Stroke Does the patient have a stroke diagnosis?: No VTE Prior VTE?: No VTE Risk Level:: Medical - moderate - high VTE Device Contraindication: Treatment Not Indicated VTE Drug Contraindication: N/A - Med Ordered
--- NOTE | 2024-05-06 10:51 | PM.EVENT ---
Event Note Date of Service: 05/06/24 Event Note: Left 2nd metatarsal fx approx 8 weeks old -non surigcal -recommend boot wbat f/u xrays in 6 weeks Time Spent With Patient Time: Total time managing care of this patient today ____ minutes.
[2024-05-06 12:22] LABS: Glucose, Whole Blood 224 mg/dL (60-115)
[2024-05-06 12:31] VITALS: BP 132/95; PULSE 94; RESP 17; TEMP 36.6; O2SAT 97
[2024-05-06 15:42] LABS: Glucose, Whole Blood 240 mg/dL (60-115)
[2024-05-06 20:11] VITALS: BP 119/61; PULSE 88; RESP 18; TEMP 36.8; O2SAT 97
[2024-05-06] MEDS: Atorvastatin Calcium 10 MG TABLET PO (20:34)
[2024-05-06] MEDS: Melatonin 3 MG TABLET PO (20:34)
[2024-05-06] MEDS: Butalb/Acetamin/Caff 50/325/40 TABLET 1 TAB PO (20:36)
[2024-05-06] MEDS: Trolamine Salicylate 10 % Cream 141 gm Tube 1 APPL TOPICAL (20:37)
[2024-05-06 20:40] LABS: Glucose, Whole Blood 219 mg/dL (60-115)
[2024-05-07] VITALS: BP 111/53; PULSE 91; RESP 18; TEMP 36.3; O2SAT 96
[2024-05-07] MEDS: Omeprazole 20 MG CAPSULE.DR PO (05:09)
[2024-05-07 07:45] LABS: Glucose, Whole Blood 119 mg/dL (60-115)
[2024-05-07 08:00] VITALS: BP 123/59; PULSE 88; RESP 20; TEMP 36.7; O2SAT 97
--- NOTE | 2024-05-07 09:03 | P.PNIM_ITS ---
Subjective Subjective Date of Service: 05/07/24 Interval History: no new complaints Review of Systems Review of Systems: Yes all other systems are reviewed and are negative Physical Exam 2 Vital Signs: Vital Signs: Last Vital Signs Temp 98.1 F 05/07/24 08:00 Pulse 88 05/07/24 08:00 Resp 20 05/07/24 08:00 BP 123/59 L 05/07/24 08:00 Pulse Ox 97 05/07/24 08:00 O2 Del Method Room Air 05/07/24 08:00 BMI result Body Mass Index 24.5 Gen: in no acute distress Lungs: clear to auscultation bilaterally Heart: regular rate and rhythm, no murmurs Abd: soft, non-tender, non-distended Ext: R>L shoulder impingement Skin: warm/well-perfused Neuro: alert, no focal weakness Psych: impaired insight Objective Data Active Medications Acetaminophen (Acetaminophen 325 Mg Tablet) 650 mg PO Q4H PRN PRN Reason: headache or pain Last Admin: 04/22/24 09:03 Dose: 650 mg Documented By: JIMY Acetaminophen/Butalbital/Caffeine (Butalb/Acetamin/Caff 50/325/40 Tablet) 1 tab PO Q4H PRN PRN Reason: Headache Last Admin: 05/06/24 20:36 Dose: 1 tab Documented By: VERONICA Amitriptyline HCl (Amitriptyline Hcl 25 Mg Tablet) 25 mg PO BEDTIME [facility] Last Admin: 05/06/24 20:37 Dose: Not Given Documented By: VERONICA Non-Admin Reason: Pt declines Aspirin (Aspirin Enteric Coated 81 Mg Tablet.) 81 mg PO DAILY [facility] Last Admin: 05/06/24 08:43 Dose: 81 mg Documented By: DOUGLAS Atorvastatin Calcium (Atorvastatin Calcium 10 Mg Tablet) 10 mg PO BEDTIME [facility] Last Admin: 05/06/24 20:34 Dose: 10 mg Documented By: VERONICA Empagliflozin (Empagliflozin 10 Mg Tablet) 10 mg PO DAILY [facility] Last Admin: 05/06/24 08:44 Dose: 10 mg Documented By: DOUGLAS Enoxaparin Sodium (Enoxaparin Sodium 40 Mg/0.4 Ml Syringe) 40 mg SUBCUT Q24H [facility] Last Admin: 05/06/24 18:18 Dose: Not Given Documented By: DOUGLAS Non-Admin Reason: Patient Refused Fluticasone Propionate (Fluticasone Propionate Nasal 16 Gm [place]) 1 spray NOSTRIL-B BID [facility] Last Admin: 05/06/24 20:35 Dose: 1 spray Documented By: VERONICA Glipizide (Glipizide 10 Mg Tablet) 10 mg PO BID [facility] Last Admin: 05/06/24 20:34 Dose: 10 mg Documented By: VERONICA Lactulose (Lactulose 20 Gm/30 Ml Solution) 20 gm PO BID [facility] Last Admin: 05/06/24 20:35 Dose: Not Given Documented By: VERONICA Non-Admin Reason: pt declined Lidocaine (Lidocaine 4 % Patch Adh..Patch) 2 patch TRANSDERMA DAILY [facility]; Protocol Last Admin: 05/06/24 08:45 Dose: 2 patch Documented By: DOUGLAS Lidocaine (Lidocaine 4 % Patch Adh..Patch) 1 patch TRANSDERMA DAILY [facility]; Protocol Last Admin: 05/06/24 08:45 Dose: 1 patch Documented By: DOUGLAS Melatonin (Melatonin 3 Mg Tablet) 3 mg PO BEDTIME PRN PRN Reason: Insomnia Last Admin: 05/06/24 20:34 Dose: 3 mg Documented By: VERONICA Nitroglycerin (Nitroglycerin 0.4 Mg Tab.Subl) 0.4 mg SUBLINGUAL Q5M PRN PRN Reason: angina Omeprazole (Omeprazole 20 Mg Capsule.Dr) 20 mg PO DAILY@0630 [facility] Last Admin: 05/07/24 05:09 Dose: 20 mg Documented By: VERONICA Sitagliptin Phosphate (Sitagliptin Phosphate 100 Mg Tablet) 100 mg PO DAILY [facility] Last Admin: 05/06/24 08:44 Dose: 100 mg Documented By: DOUGLAS Sodium Chloride (0.9 % Sodium Chloride Flush 3 Ml Syringe) 3 ml IVFLUSH QSHIFT [facility] Last Admin: 05/07/24 01:06 Dose: Not Given Documented By: VERONICA Non-Admin Reason: No IV access Trolamine Salicylate (Trolamine Salicylate 10 % Cream 141 Gm Tube) 1 appl TOPICAL BID PRN; Protocol PRN Reason: both shoulders Last Admin: 05/06/24 20:37 Dose: 1 appl Documented By: VERONICA Comments: applied to both shoulders Labs 03/24/24 16:45 Labs: Laboratory Results - last 24 hr 05/06/24 05/06/24 05/06/24 12:10 15:31 20:31 POC Glucose 224 H 240 H 219 H 05/07/24 07:39 POC Glucose 119 H Assessment and Plan (1) Cognitive impairment: Status: Acute Plan d45 88yo F with vascular dementia, diabetes, hypertension, hyperlipidemia, and peptic ulcer disease presented with mechanical fall and found to have left foot fracture awaiting safe placement in ED, admitted to facilitate conservatorship/placement vascular dementia + cognitive impairment - stable, conservatorship pending. MOCA 08/02 DM2 - continue GPZ, empagliflozin, sitagliptin L foot fx - fractures > 8wk old, Ortho consulted, boot recommended, WBAT bilateral shoulder pain/impingement - Aspercreme, lidocaine patch, ROM exercises VTE ppx - LMWH dispo - LTC In my clinical judgment, the patient requires continued inpatient hospitalization for the following reasons: conservatorship/placement Total time managing care of this patient today: 25 minutes. Quality Stroke Does the patient have a stroke diagnosis?: No VTE Prior VTE?: No VTE Risk Level:: Medical - moderate - high VTE Device Contraindication: Treatment Not Indicated VTE Drug Contraindication: N/A - Med Ordered
[2024-05-07] MEDS: Lactulose 20 GM/30 ML SOLUTION PO (09:20)
[2024-05-07] MEDS: SITagliptin Phosphate 100 MG TABLET PO (09:21)
[2024-05-07] MEDS: Empagliflozin 10 MG TABLET PO (09:21)
[2024-05-07] MEDS: glipiZIDE 10 MG TABLET PO ×2 (09:21→20:06)
[2024-05-07] MEDS: Lidocaine 4 % Patch ADH..PATCH 1 PATCH TRANSDERMA (09:39)
[2024-05-07] MEDS: Lidocaine 4 % Patch ADH..PATCH 2 PATCH TRANSDERMA (09:39)
[2024-05-07] MEDS: Fluticasone Propionate Nasal 16 GM SPRAY 1 SPRAY NOSTRIL-B ×2 (09:39→20:07)
--- NOTE | 2024-05-07 11:33 | MHC.CM.PN ---
EMR REVIEWED, PER GUARDIAN, PT AWAITING CONSERVATORSHIP HEARING DATE, CM HAS UPDATED SNF REFERRAL AND CURRENTLY WAITING TO SEE IF ANYONE CAN TAKE PT MH PENDING, [facility] HAD BEEN FOLLOWING AND GUARDIAN ALSO REQUESTED [facility] WHO WERE BOTH UPDATED AMONGST OTHER LOCAL FACILITIES, CM WILL CONT TO FOLLOW.
[2024-05-07 16:00] VITALS: BP 128/64; PULSE 87; RESP 18; TEMP 36.8; O2SAT 96
[2024-05-07] MEDS: Atorvastatin Calcium 10 MG TABLET PO (20:06)
--- NOTE | 2024-05-07 20:25 | PC.NURSE ---
Patient refused Lactulose stating she will take the morning dose only, she also refused Amitriptyline stating medication was stopped by her psychiatrist. Patient requested to have this medication stopped.
[2024-05-07] MEDS: Trolamine Salicylate 10 % Cream 141 gm Tube 1 APPL TOPICAL (20:52)
[2024-05-07 21:13] LABS: Glucose, Whole Blood 228 mg/dL (60-115)
[2024-05-08] MEDS: Omeprazole 20 MG CAPSULE.DR PO (06:12)
[2024-05-08] MEDS: Butalb/Acetamin/Caff 50/325/40 TABLET 1 TAB PO ×2 (06:25→18:28)
[2024-05-08 07:28] LABS: Glucose, Whole Blood 99 mg/dL (60-115)
[2024-05-08 08:00] VITALS: BP 146/68; PULSE 75; RESP 20; TEMP 36.7; O2SAT 97
[2024-05-08] MEDS: Empagliflozin 10 MG TABLET PO (09:13)
[2024-05-08] MEDS: glipiZIDE 10 MG TABLET PO ×2 (09:13→20:07)
[2024-05-08] MEDS: Lidocaine 4 % Patch ADH..PATCH 2 PATCH TRANSDERMA (09:13)
[2024-05-08] MEDS: Lidocaine 4 % Patch ADH..PATCH 1 PATCH TRANSDERMA (09:13)
[2024-05-08] MEDS: Lactulose 20 GM/30 ML SOLUTION PO (09:13)
[2024-05-08] MEDS: Aspirin Enteric Coated 81 MG TABLET.DR PO (09:13)
[2024-05-08] MEDS: SITagliptin Phosphate 100 MG TABLET PO (09:13)
[2024-05-08] MEDS: Fluticasone Propionate Nasal 16 GM SPRAY 1 SPRAY NOSTRIL-B (09:43)
--- NOTE | 2024-05-08 10:49 | HO.PM.IMPN ---
Subjective Subjective Date of Service: 05/08/24 Interval History: no new complaints Review of Systems Review of Systems: Yes all other systems are reviewed and are negative Physical Exam Vital Signs: Vital Signs: Last Vital Signs Temp 98.1 F 05/08/24 08:00 Pulse 75 05/08/24 08:00 Resp 20 05/08/24 08:00 BP 146/68 H 05/08/24 08:00 Pulse Ox 97 05/08/24 08:00 O2 Del Method Room Air 05/08/24 08:00 BMI result Body Mass Index 24.5 Gen: in no acute distress Lungs: clear to auscultation bilaterally Heart: regular rate and rhythm, no murmurs Abd: soft, non-tender, non-distended Ext: R>L shoulder impingement Skin: warm/well-perfused Neuro: alert, no focal weakness Psych: impaired insight Objective Data Active Medications Acetaminophen (Acetaminophen 325 Mg Tablet) 650 mg PO Q4H PRN PRN Reason: headache or pain Last Admin: 04/22/24 09:03 Dose: 650 mg Documented By: JIMY Acetaminophen/Butalbital/Caffeine (Butalb/Acetamin/Caff 50/325/40 Tablet) 1 tab PO Q4H PRN PRN Reason: Headache Last Admin: 05/08/24 06:25 Dose: 1 tab Documented By: MARA Amitriptyline HCl (Amitriptyline Hcl 25 Mg Tablet) 25 mg PO BEDTIME [facility] Last Admin: 05/07/24 20:09 Dose: Not Given Documented By: MARA Non-Admin Reason: Patient Refused Aspirin (Aspirin Enteric Coated 81 Mg Tablet.) 81 mg PO DAILY [facility] Last Admin: 05/08/24 09:13 Dose: 81 mg Documented By: CAROLYNE Atorvastatin Calcium (Atorvastatin Calcium 10 Mg Tablet) 10 mg PO BEDTIME [facility] Last Admin: 05/07/24 20:06 Dose: 10 mg Documented By: MARA Empagliflozin (Empagliflozin 10 Mg Tablet) 10 mg PO DAILY [facility] Last Admin: 05/08/24 09:13 Dose: 10 mg Documented By: CAROLYNE Enoxaparin Sodium (Enoxaparin Sodium 40 Mg/0.4 Ml Syringe) 40 mg SUBCUT Q24H [facility] Last Admin: 05/07/24 18:04 Dose: Not Given Documented By: CEDRICK Non-Admin Reason: Patient Refused Fluticasone Propionate (Fluticasone Propionate Nasal 16 Gm [place]) 1 spray NOSTRIL-B BID [facility] Last Admin: 05/08/24 09:43 Dose: 1 spray Documented By: CAROLYNE Glipizide (Glipizide 10 Mg Tablet) 10 mg PO BID [facility] Last Admin: 05/08/24 09:13 Dose: 10 mg Documented By: CAROLYNE Lactulose (Lactulose 20 Gm/30 Ml Solution) 20 gm PO BID [facility] Last Admin: 05/08/24 09:13 Dose: 20 gm Documented By: CAROLYNE Lidocaine (Lidocaine 4 % Patch Adh..Patch) 2 patch TRANSDERMA DAILY [facility]; Protocol Last Admin: 05/08/24 09:13 Dose: 2 patch Documented By: CAROLYNE Lidocaine (Lidocaine 4 % Patch Adh..Patch) 1 patch TRANSDERMA DAILY [facility]; Protocol Last Admin: 05/08/24 09:13 Dose: 1 patch Documented By: CAROLYNE Melatonin (Melatonin 3 Mg Tablet) 3 mg PO BEDTIME PRN PRN Reason: Insomnia Last Admin: 05/06/24 20:34 Dose: 3 mg Documented By: VERONICA Nitroglycerin (Nitroglycerin 0.4 Mg Tab.Subl) 0.4 mg SUBLINGUAL Q5M PRN PRN Reason: angina Omeprazole (Omeprazole 20 Mg Capsule.Dr) 20 mg PO DAILY@0630 [facility] Last Admin: 05/08/24 06:12 Dose: 20 mg Documented By: MARA Sitagliptin Phosphate (Sitagliptin Phosphate 100 Mg Tablet) 100 mg PO DAILY [facility] Last Admin: 05/08/24 09:13 Dose: 100 mg Documented By: CAROLYNE Sodium Chloride (0.9 % Sodium Chloride Flush 3 Ml Syringe) 3 ml IVFLUSH QSHIFT [facility] Last Admin: 05/08/24 09:14 Dose: Not Given Documented By: CAROLYNE Non-Admin Reason: No Access Trolamine Salicylate (Trolamine Salicylate 10 % Cream 141 Gm Tube) 1 appl TOPICAL BID PRN; Protocol PRN Reason: both shoulders Last Admin: 05/07/24 20:52 Dose: 1 appl Documented By: MARA Labs 03/24/24 16:45 Labs: Laboratory Results - last 24 hr 05/07/24 05/08/24 20:53 07:17 POC Glucose 228 H 99 Assessment and Plan (1) Cognitive impairment: Status: Acute Plan d46 88yo F with vascular dementia, diabetes, hypertension, hyperlipidemia, and peptic ulcer disease presented with mechanical fall and found to have left foot fracture awaiting safe placement in ED, admitted to facilitate conservatorship/placement vascular dementia + cognitive impairment - stable, conservatorship pending. MOCA 08/02 DM2 - continue GPZ, empagliflozin, sitagliptin L foot fx - fractures > 8wk old, Ortho consulted, boot recommended, WBAT bilateral shoulder pain/impingement - Aspercreme, lidocaine patch, ROM exercises VTE ppx - LMWH dispo - LTC In my clinical judgment, the patient requires continued inpatient hospitalization for the following reasons: conservatorship/placement Total time managing care of this patient today: 25 minutes. Quality Stroke Does the patient have a stroke diagnosis?: No VTE Prior VTE?: No VTE Risk Level:: Medical - moderate - high VTE Device Contraindication: Treatment Not Indicated VTE Drug Contraindication: N/A - Med Ordered
[2024-05-08 11:30] LABS: Glucose, Whole Blood 141 mg/dL (60-115)
[2024-05-08 15:03] VITALS: BP 117/66; PULSE 90; RESP 20; TEMP 36.1; O2SAT 98
[2024-05-08] MEDS: Atorvastatin Calcium 10 MG TABLET PO (20:07)
[2024-05-08 23:59] VITALS: BP 141/68; PULSE 77; RESP 20; TEMP 37.2; O2SAT 98
[2024-05-09] MEDS: Omeprazole 20 MG CAPSULE.DR PO (06:15)
[2024-05-09 07:42] LABS: Glucose, Whole Blood 106 mg/dL (60-115)
[2024-05-09 08:00] VITALS: BP 156/79; PULSE 80; RESP 20; TEMP 36.4; O2SAT 97
[2024-05-09] MEDS: SITagliptin Phosphate 100 MG TABLET PO (08:30)
[2024-05-09] MEDS: glipiZIDE 10 MG TABLET PO ×2 (08:30→20:18)
[2024-05-09] MEDS: Aspirin Enteric Coated 81 MG TABLET.DR PO (08:30)
[2024-05-09] MEDS: Empagliflozin 10 MG TABLET PO (08:31)
--- NOTE | 2024-05-09 08:33 | HO.PM.IMPN ---
Subjective Subjective Date of Service: 05/09/24 Interval History: no new issues shoulder pain controlled Review of Systems Review of Systems: Yes all other systems are reviewed and are negative Physical Exam Vital Signs: Vital Signs: Last Vital Signs Temp 99.0 F 05/08/24 23:59 Pulse 77 05/08/24 23:59 Resp 20 05/08/24 23:59 BP 141/68 H 05/08/24 23:59 Pulse Ox 98 05/08/24 23:59 O2 Del Method Room Air 05/08/24 23:59 BMI result Body Mass Index 24.5 Gen: in no acute distress Lungs: clear to auscultation bilaterally Heart: regular rate and rhythm, no murmurs Abd: soft, non-tender, non-distended Ext: R>L shoulder impingement Skin: warm/well-perfused Neuro: alert, no focal weakness Psych: impaired insight Objective Data Active Medications Acetaminophen (Acetaminophen 325 Mg Tablet) 650 mg PO Q4H PRN PRN Reason: headache or pain Last Admin: 04/22/24 09:03 Dose: 650 mg Documented By: JIMY Acetaminophen/Butalbital/Caffeine (Butalb/Acetamin/Caff 50/325/40 Tablet) 1 tab PO Q4H PRN PRN Reason: Headache Last Admin: 05/08/24 18:28 Dose: 1 tab Documented By: CAROLYNE Amitriptyline HCl (Amitriptyline Hcl 25 Mg Tablet) 25 mg PO BEDTIME [facility] Last Admin: 05/08/24 20:08 Dose: Not Given Documented By: SHAYAN Non-Admin Reason: Patient Refused Aspirin (Aspirin Enteric Coated 81 Mg Tablet.) 81 mg PO DAILY [facility] Last Admin: 05/09/24 08:30 Dose: 81 mg Documented By: KEZIA Atorvastatin Calcium (Atorvastatin Calcium 10 Mg Tablet) 10 mg PO BEDTIME [facility] Last Admin: 05/08/24 20:07 Dose: 10 mg Documented By: SHAYAN Empagliflozin (Empagliflozin 10 Mg Tablet) 10 mg PO DAILY [facility] Last Admin: 05/09/24 08:31 Dose: 10 mg Documented By: KEZIA Enoxaparin Sodium (Enoxaparin Sodium 40 Mg/0.4 Ml Syringe) 40 mg SUBCUT Q24H [facility] Last Admin: 05/08/24 18:12 Dose: Not Given Documented By: CAROLYNE Non-Admin Reason: Patient Refused Comments: notified Fluticasone Propionate (Fluticasone Propionate Nasal 16 Gm [place]) 1 spray NOSTRIL-B BID [facility] Last Admin: 05/08/24 22:31 Dose: Not Given Documented By: SHAYAN Non-Admin Reason: Patient Refused Glipizide (Glipizide 10 Mg Tablet) 10 mg PO BID [facility] Last Admin: 05/09/24 08:30 Dose: 10 mg Documented By: KEZIA Lactulose (Lactulose 20 Gm/30 Ml Solution) 20 gm PO BID [facility] Last Admin: 05/08/24 20:08 Dose: Not Given Documented By: SHAYAN Non-Admin Reason: Patient Refused Lidocaine (Lidocaine 4 % Patch Adh..Patch) 2 patch TRANSDERMA DAILY [facility]; Protocol Last Admin: 05/08/24 09:13 Dose: 2 patch Documented By: CAROLYNE Lidocaine (Lidocaine 4 % Patch Adh..Patch) 1 patch TRANSDERMA DAILY [facility]; Protocol Last Admin: 05/08/24 09:13 Dose: 1 patch Documented By: CAROLYNE Melatonin (Melatonin 3 Mg Tablet) 3 mg PO BEDTIME PRN PRN Reason: Insomnia Last Admin: 05/06/24 20:34 Dose: 3 mg Documented By: VERONICA Nitroglycerin (Nitroglycerin 0.4 Mg Tab.Subl) 0.4 mg SUBLINGUAL Q5M PRN PRN Reason: angina Omeprazole (Omeprazole 20 Mg Capsule.Dr) 20 mg PO DAILY@0630 [facility] Last Admin: 05/09/24 06:15 Dose: 20 mg Documented By: FIONA Sitagliptin Phosphate (Sitagliptin Phosphate 100 Mg Tablet) 100 mg PO DAILY [facility] Last Admin: 05/09/24 08:30 Dose: 100 mg Documented By: KEZIA Sodium Chloride (0.9 % Sodium Chloride Flush 3 Ml Syringe) 3 ml IVFLUSH QSHIFT [facility] Last Admin: 05/09/24 00:16 Dose: Not Given Documented By: FIONA Non-Admin Reason: No Access Trolamine Salicylate (Trolamine Salicylate 10 % Cream 141 Gm Tube) 1 appl TOPICAL BID PRN; Protocol PRN Reason: both shoulders Last Admin: 05/07/24 20:52 Dose: 1 appl Documented By: MARA Labs 03/24/24 16:45 Labs: Laboratory Results - last 24 hr 05/08/24 05/09/24 11:19 07:31 POC Glucose 141 H 106 Assessment and Plan (1) Cognitive impairment: Status: Acute Plan [id number] 88yo F with vascular dementia, diabetes, hypertension, hyperlipidemia, and peptic ulcer disease presented with mechanical fall and found to have left foot fracture awaiting safe placement in ED, admitted to facilitate conservatorship/placement vascular dementia + cognitive impairment - stable, conservatorship pending. MOCA 08/02 DM2 - continue GPZ, empagliflozin, sitagliptin L foot fx - fractures > 8wk old, Ortho consulted, boot recommended, WBAT bilateral shoulder pain/impingement - Aspercreme, lidocaine patch, ROM exercises VTE ppx - LMWH dispo - LTC In my clinical judgment, the patient requires continued inpatient hospitalization for the following reasons: conservatorship/placement Total time managing care of this patient today: 25 minutes. Quality Stroke Does the patient have a stroke diagnosis?: No VTE Prior VTE?: No VTE Risk Level:: Medical - moderate - high VTE Device Contraindication: Treatment Not Indicated VTE Drug Contraindication: N/A - Med Ordered
[2024-05-09] MEDS: Lidocaine 4 % Patch ADH..PATCH 1 PATCH TRANSDERMA (08:36)
[2024-05-09] MEDS: Lidocaine 4 % Patch ADH..PATCH 2 PATCH TRANSDERMA (08:37)
[2024-05-09] MEDS: Fluticasone Propionate Nasal 16 GM SPRAY 1 SPRAY NOSTRIL-B (08:37)
[2024-05-09 15:41] VITALS: BP 115/57; PULSE 83; RESP 16; TEMP 36.1; O2SAT 97
[2024-05-09 16:19] LABS: Glucose, Whole Blood 253 mg/dL (60-115)
[2024-05-09] MEDS: Butalb/Acetamin/Caff 50/325/40 TABLET 1 TAB PO (17:30)
[2024-05-09] MEDS: Trolamine Salicylate 10 % Cream 141 gm Tube 1 APPL TOPICAL (18:20)
[2024-05-09] MEDS: Atorvastatin Calcium 10 MG TABLET PO (20:18)
[2024-05-10] VITALS: BP 117/62; PULSE 84; RESP 18; TEMP 36.4; O2SAT 99
[2024-05-10 07:24] LABS: Glucose, Whole Blood 103 mg/dL (60-115)
[2024-05-10] MEDS: Butalb/Acetamin/Caff 50/325/40 TABLET 1 TAB PO (07:31)
[2024-05-10 08:00] VITALS: BP 116/62; PULSE 99; RESP 16; TEMP 36.5; O2SAT 92
[2024-05-10] MEDS: SITagliptin Phosphate 100 MG TABLET PO (08:46)
[2024-05-10] MEDS: Aspirin Enteric Coated 81 MG TABLET.DR PO (08:46)
[2024-05-10] MEDS: glipiZIDE 10 MG TABLET PO ×2 (08:46→21:15)
[2024-05-10] MEDS: Empagliflozin 10 MG TABLET PO (08:46)
[2024-05-10] MEDS: Lactulose 20 GM/30 ML SOLUTION PO (08:46)
[2024-05-10] MEDS: Omeprazole 20 MG CAPSULE.DR PO (08:48)
[2024-05-10] MEDS: Lidocaine 4 % Patch ADH..PATCH 2 PATCH TRANSDERMA (08:49)
[2024-05-10] MEDS: Lidocaine 4 % Patch ADH..PATCH 1 PATCH TRANSDERMA (08:49)
--- NOTE | 2024-05-10 09:28 | P.PNIM_ITS ---
Subjective Subjective Date of Service: 05/10/24 Interval History: Being followed for placement Complaining of bilateral shoulder pain took Tylenol with good relief, no new issues. Review of Systems All other system are reviewed and are negative. Physical Exam 2 Vital Signs: Vital Signs: Last Vital Signs Temp 97.7 F 05/10/24 08:00 Pulse 99 05/10/24 08:00 Resp 16 05/10/24 08:00 BP 116/62 05/10/24 08:00 Pulse Ox 92 05/10/24 08:00 O2 Del Method Room Air 05/10/24 08:00 BMI result Body Mass Index 24.5 Const: Other: Gen: Awake alert, in no acute distress Lungs: clear to auscultation bilaterally Heart: regular rate and rhythm, no murmurs Abd: soft, non-tender, non-distended Ext: No edema/both shoulders limited range of motion right greater than left Skin: warm/well-perfused Neuro: alert, no focal weakness Psych: impaired insight Objective Data Active Medications Acetaminophen (Acetaminophen 325 Mg Tablet) 650 mg PO Q4H PRN PRN Reason: headache or pain Last Admin: 04/22/24 09:03 Dose: 650 mg Documented By: JIMY Acetaminophen/Butalbital/Caffeine (Butalb/Acetamin/Caff 50/325/40 Tablet) 1 tab PO Q4H PRN PRN Reason: Headache Last Admin: 05/10/24 07:31 Dose: 1 tab Documented By: KAREN Amitriptyline HCl (Amitriptyline Hcl 25 Mg Tablet) 25 mg PO BEDTIME [facility] Last Admin: 05/09/24 20:21 Dose: Not Given Documented By: AUSTIN Non-Admin Reason: Patient Refused Aspirin (Aspirin Enteric Coated 81 Mg Tablet.) 81 mg PO DAILY [facility] Last Admin: 05/10/24 08:46 Dose: 81 mg Documented By: KAREN Atorvastatin Calcium (Atorvastatin Calcium 10 Mg Tablet) 10 mg PO BEDTIME [facility] Last Admin: 05/09/24 20:18 Dose: 10 mg Documented By: AUSTIN Empagliflozin (Empagliflozin 10 Mg Tablet) 10 mg PO DAILY [facility] Last Admin: 05/10/24 08:46 Dose: 10 mg Documented By: KAREN Enoxaparin Sodium (Enoxaparin Sodium 40 Mg/0.4 Ml Syringe) 40 mg SUBCUT Q24H [facility] Last Admin: 05/09/24 18:20 Dose: Not Given Documented By: CAROLYNE Non-Admin Reason: Patient Refused Comments: md appiah Fluticasone Propionate (Fluticasone Propionate Nasal 16 Gm [place]) 1 spray NOSTRIL-B BID [facility] Last Admin: 05/09/24 22:07 Dose: Not Given Documented By: AUSTIN Non-Admin Reason: Patient Refused Glipizide (Glipizide 10 Mg Tablet) 10 mg PO BID [facility] Last Admin: 05/10/24 08:46 Dose: 10 mg Documented By: KAREN Lactulose (Lactulose 20 Gm/30 Ml Solution) 20 gm PO BID [facility] Last Admin: 05/10/24 08:46 Dose: 20 gm Documented By: KAREN Lidocaine (Lidocaine 4 % Patch Adh..Patch) 2 patch TRANSDERMA DAILY [facility]; Protocol Last Admin: 05/10/24 08:49 Dose: 2 patch Documented By: KAREN Lidocaine (Lidocaine 4 % Patch Adh..Patch) 1 patch TRANSDERMA DAILY [facility]; Protocol Last Admin: 05/10/24 08:49 Dose: 1 patch Documented By: KAREN Melatonin (Melatonin 3 Mg Tablet) 3 mg PO BEDTIME PRN PRN Reason: Insomnia Last Admin: 05/06/24 20:34 Dose: 3 mg Documented By: VERONICA Nitroglycerin (Nitroglycerin 0.4 Mg Tab.Subl) 0.4 mg SUBLINGUAL Q5M PRN PRN Reason: angina Omeprazole (Omeprazole 20 Mg Capsule.Dr) 20 mg PO DAILY@0630 [facility] Last Admin: 05/10/24 08:48 Dose: 20 mg Documented By: KAREN Sitagliptin Phosphate (Sitagliptin Phosphate 100 Mg Tablet) 100 mg PO DAILY [facility] Last Admin: 05/10/24 08:46 Dose: 100 mg Documented By: KAREN Sodium Chloride (0.9 % Sodium Chloride Flush 3 Ml Syringe) 3 ml IVFLUSH QSHIFT [facility] Last Admin: 05/10/24 07:35 Dose: Not Given Documented By: KAREN Non-Admin Reason: No Access Trolamine Salicylate (Trolamine Salicylate 10 % Cream 141 Gm Tube) 1 appl TOPICAL BID PRN; Protocol PRN Reason: both shoulders Last Admin: 05/09/24 18:20 Dose: 1 appl Documented By: CAROLYNE Labs 03/24/24 16:45 Labs: Laboratory Results - last 24 hr 05/09/24 05/10/24 16:04 06:59 POC Glucose 253 H 103 Assessment and Plan (1) Cognitive impairment: Status: Acute Plan 88yo F with vascular dementia, diabetes, hypertension, hyperlipidemia, and peptic ulcer disease presented with mechanical fall and found to have left foot fracture awaiting safe placement in ED, admitted to facilitate conservatorship/placement vascular dementia + cognitive impairment - stable, conservatorship pending. MOCA 08/02 DM2 - continue GPZ, empagliflozin, sitagliptin L foot fx - fractures > 8wk old, Ortho consulted, boot recommended, WBAT/ambulate t.i.d. bilateral shoulder pain/impingement - Aspercreme, lidocaine patch, ROM exercises VTE ppx - LMWH dispo - LTC In my clinical judgment, the patient requires continued inpatient hospitalization for the following reasons: conservatorship/placement Total time managing care of this patient today: 25 minutes. Quality Stroke Does the patient have a stroke diagnosis?: No VTE Prior VTE?: No VTE Risk Level:: Medical - moderate - high VTE Device Contraindication: Treatment Not Indicated VTE Drug Contraindication: N/A - Med Ordered
[2024-05-10] MEDS: Trolamine Salicylate 10 % Cream 141 gm Tube 1 APPL TOPICAL (11:02)
[2024-05-10] MEDS: Fluticasone Propionate Nasal 16 GM SPRAY 1 SPRAY NOSTRIL-B ×2 (11:02→21:15)
--- NOTE | 2024-05-10 15:16 | MHC.CM.PN ---
This CM received a phone call from pts jesse Denney, per Gaston, [facility] will be coming in tomorrow on 05/11 around 11am to meet pt. Per Gaston, it is ok with her if we provide [facility] with medical information if necessary. Per jesse/Gaston, she is still unsure whether or not she should plan for pt to discharge to a rest home vs a detention, as she is concerned with elopement. Per Gaston's request, she would like to give her a call tomorrow afternoon to discuss how it went with [facility].
[2024-05-10 15:19] VITALS: BP 99/61; PULSE 85; RESP 16; TEMP 36.7; O2SAT 99
[2024-05-10] MEDS: Atorvastatin Calcium 10 MG TABLET PO (21:15)
[2024-05-11] VITALS: BP 144/67; PULSE 91; RESP 18; TEMP 36.7; O2SAT 97
[2024-05-11] MEDS: Omeprazole 20 MG CAPSULE.DR PO (06:36)
[2024-05-11] MEDS: Butalb/Acetamin/Caff 50/325/40 TABLET 1 TAB PO ×2 (06:38→20:14)
[2024-05-11 08:00] VITALS: BP 109/58; PULSE 90; RESP 18; TEMP 36.1; O2SAT 96
[2024-05-11] MEDS: glipiZIDE 10 MG TABLET PO ×2 (08:41→20:14)
[2024-05-11] MEDS: Fluticasone Propionate Nasal 16 GM SPRAY 1 SPRAY NOSTRIL-B ×2 (08:41→20:16)
[2024-05-11] MEDS: Lidocaine 4 % Patch ADH..PATCH 2 PATCH TRANSDERMA (08:41)
[2024-05-11] MEDS: Aspirin Enteric Coated 81 MG TABLET.DR PO (08:41)
[2024-05-11] MEDS: SITagliptin Phosphate 100 MG TABLET PO (08:41)
[2024-05-11] MEDS: Empagliflozin 10 MG TABLET PO (08:41)
[2024-05-11] MEDS: Lidocaine 4 % Patch ADH..PATCH 1 PATCH TRANSDERMA (08:42)
[2024-05-11] MEDS: Trolamine Salicylate 10 % Cream 141 gm Tube 1 APPL TOPICAL (08:49)
--- NOTE | 2024-05-11 10:33 | P.PNIM_ITS ---
Subjective Subjective Date of Service: 05/11/24 Interval History: Being followed for placement. No acute issues, stable bilateral shoulder pain. Review of Systems All other system reviewed and negative. Physical Exam 2 Vital Signs: Vital Signs: Last Vital Signs Temp 97.0 F 05/11/24 08:00 Pulse 90 05/11/24 08:00 Resp 18 05/11/24 08:00 BP 109/58 L 05/11/24 08:00 Pulse Ox 96 05/11/24 08:00 O2 Del Method Room Air 05/11/24 08:00 BMI result Body Mass Index 24.5 Const: Other: Gen: Awake alert, in no acute distress Lungs: clear to auscultation bilaterally Heart: regular rate and rhythm, no murmurs Abd: soft, non-tender, non-distended Ext: No edema/both shoulders limited range of motion right greater than left Skin: warm/well-perfused Neuro: alert, no focal weakness Psych: impaired insight Objective Data Active Medications Acetaminophen (Acetaminophen 325 Mg Tablet) 650 mg PO Q4H PRN PRN Reason: headache or pain Last Admin: 04/22/24 09:03 Dose: 650 mg Documented By: JIMY Acetaminophen/Butalbital/Caffeine (Butalb/Acetamin/Caff 50/325/40 Tablet) 1 tab PO Q4H PRN PRN Reason: Headache Last Admin: 05/11/24 06:38 Dose: 1 tab Documented By: SANTO Amitriptyline HCl (Amitriptyline Hcl 25 Mg Tablet) 25 mg PO BEDTIME [facility] BEDS AT [facility] Last Admin: 05/10/24 21:22 Dose: Not Given Documented By: POPPY Non-Admin Reason: Patient Refused Aspirin (Aspirin Enteric Coated 81 Mg Tablet.) 81 mg PO DAILY [facility] 234 [facility]S [facility] Last Admin: 05/11/24 08:41 Dose: 81 mg Documented By: KAREN Atorvastatin Calcium (Atorvastatin Calcium 10 Mg Tablet) 10 mg PO BEDTIME [facility] 234 [facility]S [facility] Last Admin: 05/10/24 21:15 Dose: 10 mg Documented By: POPPY Empagliflozin (Empagliflozin 10 Mg Tablet) 10 mg PO DAILY [facility] 234 B[facility]S AT [facility] Last Admin: 05/11/24 08:41 Dose: 10 mg Documented By: KAREN Enoxaparin Sodium (Enoxaparin Sodium 40 Mg/0.4 Ml Syringe) 40 mg SUBCUT Q24H [facility] 234 B[facility]S AT [facility] Last Admin: 05/10/24 22:40 Dose: Not Given Documented By: SANTO Non-Admin Reason: Patient Refused Fluticasone Propionate (Fluticasone Propionate Nasal 16 Gm [place]) 1 spray NOSTRIL-B BID [facility] 234 B[facility]S [facility] Last Admin: 05/11/24 08:41 Dose: 1 spray Documented By: KAREN Glipizide (Glipizide 10 Mg Tablet) 10 mg PO BID [facility] 234 [facility]S [facility] Last Admin: 05/11/24 08:41 Dose: 10 mg Documented By: KAREN Lactulose (Lactulose 20 Gm/30 Ml Solution) 20 gm PO BID [facility] 234 B[facility]S [facility] Last Admin: 05/11/24 08:41 Dose: Not Given Documented By: KAREN Non-Admin Reason: loose stools Lidocaine (Lidocaine 4 % Patch Adh..Patch) 2 patch TRANSDERMA DAILY [facility] 234 [facility]S [facility]; Protocol Last Admin: 05/11/24 08:41 Dose: 2 patch Documented By: KAREN Lidocaine (Lidocaine 4 % Patch Adh..Patch) 1 patch TRANSDERMA DAILY [facility] 234 [facility]S [facility]; Protocol Last Admin: 05/11/24 08:42 Dose: 1 patch Documented By: KAREN Melatonin (Melatonin 3 Mg Tablet) 3 mg PO BEDTIME PRN PRN Reason: Insomnia Last Admin: 05/06/24 20:34 Dose: 3 mg Documented By: VERONICA Nitroglycerin (Nitroglycerin 0.4 Mg Tab.Subl) 0.4 mg SUBLINGUAL Q5M PRN PRN Reason: angina Omeprazole (Omeprazole 20 Mg Capsule.Dr) 20 mg PO DAILY@0630 [facility] 234 [facility]S [facility] Last Admin: 05/11/24 06:36 Dose: 20 mg Documented By: SANTO Sitagliptin Phosphate (Sitagliptin Phosphate 100 Mg Tablet) 100 mg PO DAILY [facility] 234 B[facility]S AT [facility] Last Admin: 05/11/24 08:41 Dose: 100 mg Documented By: KAREN Sodium Chloride (0.9 % Sodium Chloride Flush 3 Ml Syringe) 3 ml IVFLUSH QSHIFT [facility] 234 B[facility]S AT [facility] Last Admin: 05/11/24 08:41 Dose: Not Given Documented By: KAREN Non-Admin Reason: No Access Trolamine Salicylate (Trolamine Salicylate 10 % Cream 141 Gm Tube) 1 appl TOPICAL BID PRN; Protocol PRN Reason: both shoulders Last Admin: 05/11/24 08:49 Dose: 1 appl Documented By: KAREN Jones 03/24/24 16:45 Assessment and Plan (1) Cognitive impairment: Status: Acute Plan 88yo F with vascular dementia, diabetes, hypertension, hyperlipidemia, and peptic ulcer disease presented with mechanical fall and found to have left foot fracture awaiting safe placement in ED, admitted to facilitate conservatorship/placement vascular dementia + cognitive impairment - stable, conservatorship pending. MOCA 08/02 DM2 - continue GPZ, empagliflozin, sitagliptin L foot fx - fractures > 8wk old, Ortho consulted, boot recommended, WBAT/ambulate t.i.d. bilateral shoulder pain/impingement - Aspercreme, lidocaine patch, encourage to do ROM exercises VTE ppx - LMWH dispo - LTC In my clinical judgment, the patient requires continued inpatient hospitalization for the following reasons: conservatorship/placement Total time managing care of this patient today: 25 minutes. Quality Stroke Does the patient have a stroke diagnosis?: No VTE Prior VTE?: No VTE Risk Level:: Medical - moderate - high VTE Device Contraindication: Treatment Not Indicated VTE Drug Contraindication: N/A - Med Ordered
--- NOTE | 2024-05-11 14:52 | MHC.CM.PN ---
This CM spoke with pts jesse Denney, she states that [facility] came in today to see the pt and she will contact them for an update.
[2024-05-11 15:58] VITALS: BP 107/53; PULSE 83; RESP 18; TEMP 36.8; O2SAT 97
[2024-05-11] MEDS: Atorvastatin Calcium 10 MG TABLET PO (20:14)
[2024-05-11 20:52] LABS: Glucose, Whole Blood 234 mg/dL (60-115)
[2024-05-12] VITALS: BP 114/56; PULSE 84; RESP 20; TEMP 36.5; O2SAT 97
[2024-05-12 07:08] LABS: Glucose, Whole Blood 99 mg/dL (60-115)
[2024-05-12 07:56] VITALS: BP 135/63; PULSE 87; RESP 20; TEMP 36.6; O2SAT 97
[2024-05-12] MEDS: Empagliflozin 10 MG TABLET PO (09:46)
[2024-05-12] MEDS: SITagliptin Phosphate 100 MG TABLET PO (09:46)
[2024-05-12] MEDS: glipiZIDE 10 MG TABLET PO ×2 (09:46→20:48)
[2024-05-12] MEDS: Lidocaine 4 % Patch ADH..PATCH 2 PATCH TRANSDERMA (09:46)
[2024-05-12] MEDS: Aspirin Enteric Coated 81 MG TABLET.DR PO (09:46)
[2024-05-12] MEDS: Butalb/Acetamin/Caff 50/325/40 TABLET 1 TAB PO ×2 (09:48→14:48)
[2024-05-12] MEDS: Fluticasone Propionate Nasal 16 GM SPRAY 1 SPRAY NOSTRIL-B (09:59)
--- NOTE | 2024-05-12 11:32 | HO.PM.IMPN ---
Subjective Subjective Date of Service: 05/12/24 Interval History: Being followed for placement. No acute events overnight. Review of Systems All other system are reviewed and are negative. Physical Exam Vital Signs: Vital Signs: Last Vital Signs Temp 97.9 F 05/12/24 07:56 Pulse 87 05/12/24 07:56 Resp 20 05/12/24 07:56 BP 135/63 05/12/24 07:56 Pulse Ox 97 05/12/24 07:56 O2 Del Method Room Air 05/12/24 07:56 BMI result Body Mass Index 24.5 Const: Other: Gen: Awake alert, in no acute distress Lungs: clear to auscultation bilaterally Heart: regular rate and rhythm, no murmurs Abd: soft, non-tender, non-distended Ext: No edema/both shoulders limited range of motion right greater than left Skin: warm/well-perfused Neuro: alert, no focal weakness Psych: impaired insight Objective Data Active Medications Acetaminophen (Acetaminophen 325 Mg Tablet) 650 mg PO Q4H PRN PRN Reason: headache or pain Last Admin: 04/22/24 09:03 Dose: 650 mg Documented By: JIMY Acetaminophen/Butalbital/Caffeine (Butalb/Acetamin/Caff 50/325/40 Tablet) 1 tab PO Q4H PRN PRN Reason: Headache Last Admin: 05/12/24 09:48 Dose: 1 tab Documented By: MARA Amitriptyline HCl (Amitriptyline Hcl 25 Mg Tablet) 25 mg PO BEDTIME [facility] Last Admin: 05/11/24 20:23 Dose: Not Given Documented By: POPPY Non-Admin Reason: Patient Refused Aspirin (Aspirin Enteric Coated 81 Mg Tablet.) 81 mg PO DAILY [facility] Last Admin: 05/12/24 09:46 Dose: 81 mg Documented By: MARA Atorvastatin Calcium (Atorvastatin Calcium 10 Mg Tablet) 10 mg PO BEDTIME [facility] Last Admin: 05/11/24 20:14 Dose: 10 mg Documented By: POPPY Empagliflozin (Empagliflozin 10 Mg Tablet) 10 mg PO DAILY [facility] Last Admin: 05/12/24 09:46 Dose: 10 mg Documented By: MARA Enoxaparin Sodium (Enoxaparin Sodium 40 Mg/0.4 Ml Syringe) 40 mg SUBCUT Q24H [facility] Last Admin: 05/11/24 20:24 Dose: Not Given Documented By: POPPY Non-Admin Reason: Patient Refused Fluticasone Propionate (Fluticasone Propionate Nasal 16 Gm [place]) 1 spray NOSTRIL-B BID [facility] Last Admin: 05/12/24 09:59 Dose: 1 spray Documented By: MARA Glipizide (Glipizide 10 Mg Tablet) 10 mg PO BID [facility] Last Admin: 05/12/24 09:46 Dose: 10 mg Documented By: MARA Lactulose (Lactulose 20 Gm/30 Ml Solution) 20 gm PO BID [facility] Last Admin: 05/12/24 09:43 Dose: Not Given Documented By: MARA Non-Admin Reason: Patient Refused Lidocaine (Lidocaine 4 % Patch Adh..Patch) 2 patch TRANSDERMA DAILY [facility]; Protocol Last Admin: 05/12/24 09:46 Dose: 2 patch Documented By: MARA Lidocaine (Lidocaine 4 % Patch Adh..Patch) 1 patch TRANSDERMA DAILY [facility]; Protocol Last Admin: 05/12/24 09:47 Dose: Not Given Documented By: MARA Non-Admin Reason: Duplicate Order Melatonin (Melatonin 3 Mg Tablet) 3 mg PO BEDTIME PRN PRN Reason: Insomnia Last Admin: 05/06/24 20:34 Dose: 3 mg Documented By: VERONICA Nitroglycerin (Nitroglycerin 0.4 Mg Tab.Subl) 0.4 mg SUBLINGUAL Q5M PRN PRN Reason: angina Omeprazole (Omeprazole 20 Mg Capsule.Dr) 20 mg PO DAILY@0630 [facility] Last Admin: 05/12/24 06:42 Dose: Not Given Documented By: SANTO Non-Admin Reason: Patient Refused Sitagliptin Phosphate (Sitagliptin Phosphate 100 Mg Tablet) 100 mg PO DAILY [facility] Last Admin: 05/12/24 09:46 Dose: 100 mg Documented By: MARA Sodium Chloride (0.9 % Sodium Chloride Flush 3 Ml Syringe) 3 ml IVFLUSH QSHIFT [facility] Last Admin: 05/12/24 09:41 Dose: Not Given Documented By: MARA Non-Admin Reason: No Access Trolamine Salicylate (Trolamine Salicylate 10 % Cream 141 Gm Tube) 1 appl TOPICAL BID PRN; Protocol PRN Reason: both shoulders Last Admin: 05/11/24 08:49 Dose: 1 appl Documented By: KAREN Labs 03/24/24 16:45 Labs: Laboratory Results - last 24 hr 05/11/24 05/12/24 20:39 06:57 POC Glucose 234 H 99 Assessment and Plan (1) Cognitive impairment: Status: Acute Plan 88yo F with vascular dementia, diabetes, hypertension, hyperlipidemia, and peptic ulcer disease presented with mechanical fall and found to have left foot fracture awaiting safe placement in ED, admitted to facilitate conservatorship/placement vascular dementia + cognitive impairment. - stable, conservatorship pending. MOCA 08/02 DM2 - continue GPZ, empagliflozin, sitagliptin, stable blood sugars at a.m. elevated at night, recommend diabetic diet L foot fx - fractures > 8wk old, Ortho consulted, boot recommended, WBAT/ambulate t.i.d. bilateral shoulder pain/impingement -on Aspercreme, lidocaine patch, encourage to do ROM exercises VTE ppx - LMWH dispo - LTC In my clinical judgment, the patient requires continued inpatient hospitalization for the following reasons: conservatorship/placement Total time managing care of this patient today: 25 minutes. Quality Stroke Does the patient have a stroke diagnosis?: No VTE Prior VTE?: No VTE Risk Level:: Medical - moderate - high VTE Device Contraindication: Treatment Not Indicated VTE Drug Contraindication: N/A - Med Ordered
[2024-05-12 15:30] VITALS: BP 125/60; PULSE 84; RESP 18; TEMP 36.4; O2SAT 100
[2024-05-12 19:47] VITALS: BP 122/61; PULSE 81; RESP 20; TEMP 36.3; O2SAT 98
[2024-05-12] MEDS: Atorvastatin Calcium 10 MG TABLET PO (20:48)
[2024-05-12] MEDS: Melatonin 3 MG TABLET PO (20:49)
[2024-05-13] MEDS: Omeprazole 20 MG CAPSULE.DR PO (06:23)
[2024-05-13] MEDS: glipiZIDE 10 MG TABLET PO ×2 (07:56→20:31)
[2024-05-13] MEDS: Aspirin Enteric Coated 81 MG TABLET.DR PO (07:56)
[2024-05-13] MEDS: SITagliptin Phosphate 100 MG TABLET PO (07:56)
[2024-05-13] MEDS: Lactulose 20 GM/30 ML SOLUTION PO (07:56)
[2024-05-13] MEDS: Empagliflozin 10 MG TABLET PO (07:56)
[2024-05-13] MEDS: Lidocaine 4 % Patch ADH..PATCH 2 PATCH TRANSDERMA (07:57)
[2024-05-13] MEDS: Lidocaine 4 % Patch ADH..PATCH 1 PATCH TRANSDERMA (07:57)
[2024-05-13 08:00] VITALS: BP 125/61; PULSE 85; RESP 14; TEMP 36.7; O2SAT 96
[2024-05-13 08:22] LABS: Glucose, Whole Blood 119 mg/dL (60-115)
[2024-05-13] MEDS: Trolamine Salicylate 10 % Cream 141 gm Tube 1 APPL TOPICAL (08:24)
[2024-05-13] MEDS: Fluticasone Propionate Nasal 16 GM SPRAY 1 SPRAY NOSTRIL-B (08:25)
--- NOTE | 2024-05-13 09:36 | MHC.CM.PN ---
EMR REVIEWED, CM CONTACTED PT'S GUARDIAN DELIO LINDSEY AT 9:25AM (#ON FILE) TO FOLLOW UP ABOUT [facility], DELIO REPORTS SHE HAS NOT HEARD BACK AND DOES NOT THINK SHE WILL QUALIFY SHE HAS BEEN DECLINED BY [employer] D/T POSSIBLE ELOPEMENT RISK, CM WILL EXPAND REFERRAL TO [facility] INCLUDING [facility], [place], [facility], [facility], [facility], [facility] AND [facility] PER [facility] REQUEST SHE HAS GUARDIANSHIP CLIENTS AT THESE FACILITIES. DELIO ALSO REPORTS [facility] IS STILL PENDING AND HAVE REQUESTED ADDITIONAL DOCUMENTATION WHICH SHE WILL FAX TO THEM TODAY. CM WILL CONT TO FOLLOW DC NEEDS.
--- NOTE | 2024-05-13 11:34 | P.PNIM_ITS ---
Subjective Subjective Date of Service: 05/13/24 Interval History: Being followed for placement No acute events overnight No worsening bilateral shoulder pain feel lidocaine patches are not helping, is not following range of motion exercises. Review of Systems All other system are reviewed and are negative. Physical Exam 2 Vital Signs: Vital Signs: Last Vital Signs Temp 98.1 F 05/13/24 08:00 Pulse 85 05/13/24 08:00 Resp 14 05/13/24 08:00 BP 125/61 05/13/24 08:00 Pulse Ox 96 05/13/24 08:00 O2 Del Method Room Air 05/13/24 08:00 BMI result Body Mass Index 24.5 Const: Other: Gen: Awake alert, in no acute distress Lungs: clear to auscultation bilaterally Heart: regular rate and rhythm, no murmurs Abd: soft, non-tender, non-distended Ext: No edema/both shoulders limited range of motion, no warmth, no redness, crepitus, right greater than left Skin: warm/well-perfused Neuro: alert, no focal weakness Psych: impaired insight Objective Data Active Medications Acetaminophen (Acetaminophen 325 Mg Tablet) 650 mg PO Q4H PRN PRN Reason: headache or pain Last Admin: 04/22/24 09:03 Dose: 650 mg Documented By: JIMY Acetaminophen/Butalbital/Caffeine (Butalb/Acetamin/Caff 50/325/40 Tablet) 1 tab PO Q4H PRN PRN Reason: Headache Last Admin: 05/12/24 14:48 Dose: 1 tab Documented By: BROVik Amitriptyline HCl (Amitriptyline Hcl 25 Mg Tablet) 25 mg PO BEDTIME [facility] Last Admin: 05/12/24 20:52 Dose: Not Given Documented By: SANTO Non-Admin Reason: Patient Refused Aspirin (Aspirin Enteric Coated 81 Mg Tablet.) 81 mg PO DAILY [facility] Last Admin: 05/13/24 07:56 Dose: 81 mg Documented By: CRISTAL Atorvastatin Calcium (Atorvastatin Calcium 10 Mg Tablet) 10 mg PO BEDTIME [facility] Last Admin: 05/12/24 20:48 Dose: 10 mg Documented By: SANTO Empagliflozin (Empagliflozin 10 Mg Tablet) 10 mg PO DAILY [facility] Last Admin: 05/13/24 07:56 Dose: 10 mg Documented By: CRISTAL Enoxaparin Sodium (Enoxaparin Sodium 40 Mg/0.4 Ml Syringe) 40 mg SUBCUT Q24H [facility] Last Admin: 05/12/24 18:20 Dose: Not Given Documented By: MARA Non-Admin Reason: Patient Refused Fluticasone Propionate (Fluticasone Propionate Nasal 16 Gm [place]) 1 spray NOSTRIL-B BID [facility] Last Admin: 05/13/24 08:25 Dose: 1 spray Documented By: CRISTAL Glipizide (Glipizide 10 Mg Tablet) 10 mg PO BID [facility] Last Admin: 05/13/24 07:56 Dose: 10 mg Documented By: CRISTAL Lactulose (Lactulose 20 Gm/30 Ml Solution) 20 gm PO BID [facility] Last Admin: 05/13/24 07:56 Dose: 20 gm Documented By: CRISTAL Lidocaine (Lidocaine 4 % Patch Adh..Patch) 2 patch TRANSDERMA DAILY [facility]; Protocol Last Admin: 05/13/24 07:57 Dose: 2 patch Documented By: CRISTAL Lidocaine (Lidocaine 4 % Patch Adh..Patch) 1 patch TRANSDERMA DAILY [facility]; Protocol Last Admin: 05/13/24 07:57 Dose: 1 patch Documented By: CRISTAL Melatonin (Melatonin 3 Mg Tablet) 3 mg PO BEDTIME PRN PRN Reason: Insomnia Last Admin: 05/12/24 20:49 Dose: 3 mg Documented By: SANTO Nitroglycerin (Nitroglycerin 0.4 Mg Tab.Subl) 0.4 mg SUBLINGUAL Q5M PRN PRN Reason: angina Omeprazole (Omeprazole 20 Mg Capsule.Dr) 20 mg PO DAILY@0630 [facility] Last Admin: 05/13/24 06:23 Dose: 20 mg Documented By: SANTO Sitagliptin Phosphate (Sitagliptin Phosphate 100 Mg Tablet) 100 mg PO DAILY [facility] Last Admin: 05/13/24 07:56 Dose: 100 mg Documented By: CRISTAL Sodium Chloride (0.9 % Sodium Chloride Flush 3 Ml Syringe) 3 ml IVFLUSH QSHIFT [facility] Last Admin: 05/13/24 08:25 Dose: Not Given Documented By: CRISTAL Non-Admin Reason: No Access Trolamine Salicylate (Trolamine Salicylate 10 % Cream 141 Gm Tube) 1 appl TOPICAL BID PRN; Protocol PRN Reason: both shoulders Last Admin: 05/13/24 08:24 Dose: 1 appl Documented By: CRISTAL Labs 03/24/24 16:45 Labs: Laboratory Results - last 24 hr 05/13/24 07:28 POC Glucose 119 H Assessment and Plan (1) Cognitive impairment: Status: Acute Plan 88yo F with vascular dementia, diabetes, hypertension, hyperlipidemia, and peptic ulcer disease presented with mechanical fall and found to have left foot fracture awaiting safe placement in ED, admitted to facilitate conservatorship/placement vascular dementia + cognitive impairment. - stable, conservatorship pending. MOCA 08/02 DM2 - continue GPZ, empagliflozin, sitagliptin, stable blood sugars at a.m. elevated at night, recommend diabetic diet L foot fx - fractures > 8wk old, Ortho consulted, boot recommended, WBAT/ambulate t.i.d. bilateral shoulder pain/impingement -on Aspercreme, DC lidocaine patch, encourage to do ROM exercises VTE ppx - LMWH dispo - LTC In my clinical judgment, the patient requires continued inpatient hospitalization for the following reasons: conservatorship/placement Total time managing care of this patient today: 25 minutes. Quality Stroke Does the patient have a stroke diagnosis?: No VTE Prior VTE?: No VTE Risk Level:: Medical - moderate - high VTE Device Contraindication: Treatment Not Indicated VTE Drug Contraindication: N/A - Med Ordered
[2024-05-13 11:43] LABS: Glucose, Whole Blood 251 mg/dL (60-115)
[2024-05-13 15:26] LABS: Glucose, Whole Blood 193 mg/dL (60-115)
[2024-05-13 15:32] VITALS: BP 129/60; PULSE 85; RESP 18; TEMP 36.4; O2SAT 97
[2024-05-13] MEDS: Atorvastatin Calcium 10 MG TABLET PO (20:30)
[2024-05-13] MEDS: Butalb/Acetamin/Caff 50/325/40 TABLET 1 TAB PO (20:35)
[2024-05-13] MEDS: Melatonin 3 MG TABLET PO (20:38)
[2024-05-13 23:34] VITALS: BP 144/67; PULSE 77; RESP 18; TEMP 36.1; O2SAT 99
[2024-05-14] MEDS: Butalb/Acetamin/Caff 50/325/40 TABLET 1 TAB PO ×2 (04:37→16:57)
[2024-05-14] MEDS: Omeprazole 20 MG CAPSULE.DR PO (05:55)
[2024-05-14 07:39] LABS: Glucose, Whole Blood 146 mg/dL (60-115)
[2024-05-14 07:44] VITALS: BP 135/66; RESP 18; TEMP 36.3; O2SAT 96
[2024-05-14] MEDS: Aspirin Enteric Coated 81 MG TABLET.DR PO (08:22)
[2024-05-14] MEDS: glipiZIDE 10 MG TABLET PO ×2 (08:23→21:31)
[2024-05-14] MEDS: SITagliptin Phosphate 100 MG TABLET PO (08:23)
[2024-05-14] MEDS: Fluticasone Propionate Nasal 16 GM SPRAY 1 SPRAY NOSTRIL-B (08:24)
[2024-05-14] MEDS: Empagliflozin 10 MG TABLET PO (08:28)
[2024-05-14] MEDS: Trolamine Salicylate 10 % Cream 141 gm Tube 1 APPL TOPICAL ×2 (08:33→21:11)
[2024-05-14 11:28] LABS: Glucose, Whole Blood 217 mg/dL (60-115)
--- NOTE | 2024-05-14 11:31 | HO.PM.IMPN ---
Subjective Subjective Date of Service: 05/14/24 Interval History: Being followed for placement. Bilateral shoulder pain is stable, trying to do [id number] exercises, tolerating diet no acute events overnight. Review of Systems All other system reviewed and are negative. Physical Exam Vital Signs: Vital Signs: Last Vital Signs Temp 97.3 F 05/14/24 07:44 Pulse 77 05/13/24 23:34 Resp 18 05/14/24 07:44 BP 135/66 05/14/24 07:44 Pulse Ox 96 05/14/24 07:44 O2 Del Method Room Air 05/14/24 07:44 BMI result Body Mass Index 24.5 Const: Other: Gen: Awake alert, in no acute distress Lungs: clear to auscultation bilaterally Heart: regular rate and rhythm, no murmurs Abd: soft, non-tender, non-distended Ext: No edema/both shoulders limited range of motion, no warmth, no redness, crepitus, Skin: warm/well-perfused Neuro: alert, no focal weakness Psych: impaired insight Objective Data Active Medications Acetaminophen (Acetaminophen 325 Mg Tablet) 650 mg PO Q4H PRN PRN Reason: headache or pain Last Admin: 04/22/24 09:03 Dose: 650 mg Documented By: JIMY Acetaminophen/Butalbital/Caffeine (Butalb/Acetamin/Caff 50/325/40 Tablet) 1 tab PO Q4H PRN PRN Reason: Headache Last Admin: 05/14/24 04:37 Dose: 1 tab Documented By: PATY Amitriptyline HCl (Amitriptyline Hcl 25 Mg Tablet) 25 mg PO BEDTIME [facility] Last Admin: 05/13/24 20:30 Dose: Not Given Documented By: PATY Non-Admin Reason: Patient Refused Aspirin (Aspirin Enteric Coated 81 Mg Tablet.) 81 mg PO DAILY [facility] Last Admin: 05/14/24 08:22 Dose: 81 mg Documented By: CRISTAL Atorvastatin Calcium (Atorvastatin Calcium 10 Mg Tablet) 10 mg PO BEDTIME [facility] Last Admin: 05/13/24 20:30 Dose: 10 mg Documented By: PATY Empagliflozin (Empagliflozin 10 Mg Tablet) 10 mg PO DAILY [facility] Last Admin: 05/14/24 08:28 Dose: 10 mg Documented By: CRISTAL Enoxaparin Sodium (Enoxaparin Sodium 40 Mg/0.4 Ml Syringe) 40 mg SUBCUT Q24H [facility] Last Admin: 05/13/24 18:13 Dose: Not Given Documented By: CRISTAL Non-Admin Reason: Patient Refused Fluticasone Propionate (Fluticasone Propionate Nasal 16 Gm [place]) 1 spray NOSTRIL-B BID [facility] Last Admin: 05/14/24 08:24 Dose: 1 spray Documented By: CRISTAL Glipizide (Glipizide 10 Mg Tablet) 10 mg PO BID [facility] Last Admin: 05/14/24 08:23 Dose: 10 mg Documented By: CRISTAL Lactulose (Lactulose 20 Gm/30 Ml Solution) 20 gm PO BID [facility] Last Admin: 05/14/24 08:31 Dose: Not Given Documented By: CRISTAL Non-Admin Reason: Patient Refused Melatonin (Melatonin 3 Mg Tablet) 3 mg PO BEDTIME PRN PRN Reason: Insomnia Last Admin: 05/13/24 20:38 Dose: 3 mg Documented By: SCOUT Nitroglycerin (Nitroglycerin 0.4 Mg Tab.Subl) 0.4 mg SUBLINGUAL Q5M PRN PRN Reason: angina Omeprazole (Omeprazole 20 Mg Capsule.Dr) 20 mg PO DAILY@0630 [facility] Last Admin: 05/14/24 05:55 Dose: 20 mg Documented By: PATY Sitagliptin Phosphate (Sitagliptin Phosphate 100 Mg Tablet) 100 mg PO DAILY [facility] Last Admin: 05/14/24 08:23 Dose: 100 mg Documented By: CRISTAL Sodium Chloride (0.9 % Sodium Chloride Flush 3 Ml Syringe) 3 ml IVFLUSH QSHIFT [facility] Last Admin: 05/14/24 09:49 Dose: Not Given Documented By: CRISTAL Non-Admin Reason: No Access Trolamine Salicylate (Trolamine Salicylate 10 % Cream 141 Gm Tube) 1 appl TOPICAL BID PRN; Protocol PRN Reason: both shoulders Last Admin: 05/14/24 08:33 Dose: 1 appl Documented By: CRISTAL Labs 03/24/24 16:45 Labs: Laboratory Results - last 24 hr 05/13/24 05/13/24 05/14/24 11:21 15:19 07:35 POC Glucose 251 H 193 H 146 H 05/14/24 11:23 POC Glucose 217 H Assessment and Plan (1) Cognitive impairment: Status: Acute Plan 88yo F with vascular dementia, diabetes, hypertension, hyperlipidemia, and peptic ulcer disease presented with mechanical fall and found to have left foot fracture awaiting safe placement in ED, admitted to facilitate conservatorship/placement vascular dementia + cognitive impairment. - stable, conservatorship pending. MOCA 08/02 DM2 - continue GPZ, empagliflozin, sitagliptin, stable blood sugars at a.m. elevated at night, recommend diabetic diet, check hemoglobin A1c L foot fx - fractures > 8wk old, Ortho consulted, boot recommended, WBAT/ambulate t.i.d. bilateral shoulder pain/impingement -on Aspercreme, DC lidocaine patch, encourage to do ROM exercises VTE ppx - LMWH dispo - LTC In my clinical judgment, the patient requires continued inpatient hospitalization for the following reasons: conservatorship/placement Total time managing care of this patient today: 25 minutes. Quality Stroke Does the patient have a stroke diagnosis?: No VTE Prior VTE?: No VTE Risk Level:: Medical - moderate - high VTE Device Contraindication: Treatment Not Indicated VTE Drug Contraindication: N/A - Med Ordered
--- NOTE | 2024-05-14 12:51 | MHC.CM.PN ---
EMR reviewed and per MD rounds, pt remains medically cleared for discharge but unable to due to pending MH and placement. This CM received a phone call from pts guardian Gaston, she stated that [facility] kicked [facility] out of her room when they came to evaluate her the other day. Gaston feels that the pt would not be appropriate for a rest home and would like her to have LTC placement in a SNF. [facility] is showing interest in pt, Gaston was updated and stated that would be a wonderful place for [facility] and is first choice. Per Carol Flores, they would likely need MH to be approved in order to admit but will confirm with their patient financial representative and let us know.
[2024-05-14 14:18] LABS: Estimated Average Glucose 174 mg/dL; Hemoglobin A1c % 7.7 % (<6.0)
[2024-05-14 16:00] VITALS: BP 116/65; PULSE 82; RESP 12; TEMP 36.6; O2SAT 100
[2024-05-14] MEDS: Melatonin 3 MG TABLET PO (21:11)
[2024-05-14] MEDS: Atorvastatin Calcium 10 MG TABLET PO (21:32)
--- NOTE | 2024-05-14 23:00 | PC.NURSE ---
Pt with insomnia. Requested and given PRN Melatonin with good affect. Pt also with pain and discomfort to bilateral shoulders. PRN Aspercreme applied with good affect.
[2024-05-15] VITALS: BP 139/65; PULSE 78; RESP 16; TEMP 36.6; O2SAT 99
[2024-05-15] MEDS: Omeprazole 20 MG CAPSULE.DR PO (05:44)
[2024-05-15] MEDS: Butalb/Acetamin/Caff 50/325/40 TABLET 1 TAB PO (05:44)
[2024-05-15 07:15] LABS: Glucose, Whole Blood 147 mg/dL (60-115)
[2024-05-15] MEDS: SITagliptin Phosphate 100 MG TABLET PO (07:59)
[2024-05-15] MEDS: Aspirin Enteric Coated 81 MG TABLET.DR PO (07:59)
[2024-05-15 08:00] VITALS: BP 139/60; PULSE 81; RESP 18; TEMP 36.6; O2SAT 97
[2024-05-15] MEDS: glipiZIDE 10 MG TABLET PO ×2 (08:00→20:50)
[2024-05-15] MEDS: Empagliflozin 10 MG TABLET PO (08:00)
[2024-05-15] MEDS: Fluticasone Propionate Nasal 16 GM SPRAY 1 SPRAY NOSTRIL-B ×2 (08:01→20:49)
[2024-05-15] MEDS: Lactulose 20 GM/30 ML SOLUTION PO (08:09)
--- NOTE | 2024-05-15 11:31 | HO.PM.IMPN ---
Subjective Subjective Date of Service: 05/15/24 Interval History: Seen and examined this morning Follow-up for placement no overnight events. no complaints at this time Review of Systems Review of Systems: Yes all other systems are reviewed and are negative Constitutional Constitutional: Denies chills and Denies fever(s) Cardiovascular Cardiovascular: Denies chest pain Physical Exam Vital Signs: Vital Signs: Last Vital Signs Temp 97.9 F 05/15/24 08:00 Pulse 81 05/15/24 08:00 Resp 18 05/15/24 08:00 BP 139/60 05/15/24 08:00 Pulse Ox 97 05/15/24 08:00 O2 Del Method Room Air 05/15/24 08:00 BMI result Body Mass Index 24.5 Const: General: cooperative, comfortable, no acute distress, alert and awake Nutritional Appearance: average body habitus Resp: Effort & Inspection: normal respiratory effort and able to speak in complete sentences Objective Data Active Medications Acetaminophen (Acetaminophen 325 Mg Tablet) 650 mg PO Q4H PRN PRN Reason: headache or pain Last Admin: 04/22/24 09:03 Dose: 650 mg Documented By: JIMY Acetaminophen/Butalbital/Caffeine (Butalb/Acetamin/Caff 50/325/40 Tablet) 1 tab PO Q4H PRN PRN Reason: Headache Last Admin: 05/15/24 05:44 Dose: 1 tab Documented By: THALIA Amitriptyline HCl (Amitriptyline Hcl 25 Mg Tablet) 25 mg PO BEDTIME [facility] Last Admin: 05/14/24 21:31 Dose: Not Given Documented By: THALIA Non-Admin Reason: Patient Refused Aspirin (Aspirin Enteric Coated 81 Mg Tablet.) 81 mg PO DAILY [facility] Last Admin: 05/15/24 07:59 Dose: 81 mg Documented By: CEDRICK Atorvastatin Calcium (Atorvastatin Calcium 10 Mg Tablet) 10 mg PO BEDTIME [facility] Last Admin: 05/14/24 21:32 Dose: 10 mg Documented By: THALIA Empagliflozin (Empagliflozin 10 Mg Tablet) 10 mg PO DAILY [facility] Last Admin: 05/15/24 08:00 Dose: 10 mg Documented By: CEDRICK Enoxaparin Sodium (Enoxaparin Sodium 40 Mg/0.4 Ml Syringe) 40 mg SUBCUT Q24H [facility] Last Admin: 05/14/24 18:18 Dose: Not Given Documented By: CRISATL Non-Admin Reason: Patient Refused Fluticasone Propionate (Fluticasone Propionate Nasal 16 Gm [place]) 1 spray NOSTRIL-B BID [facility] Last Admin: 05/15/24 08:01 Dose: 1 spray Documented By: CEDRICK Glipizide (Glipizide 10 Mg Tablet) 10 mg PO BID [facility] Last Admin: 05/15/24 08:00 Dose: 10 mg Documented By: CEDRICK Lactulose (Lactulose 20 Gm/30 Ml Solution) 20 gm PO BID [facility] Last Admin: 05/15/24 08:09 Dose: 20 gm Documented By: CEDRICK Melatonin (Melatonin 3 Mg Tablet) 3 mg PO BEDTIME PRN PRN Reason: Insomnia Last Admin: 05/14/24 21:11 Dose: 3 mg Documented By: THALIA Nitroglycerin (Nitroglycerin 0.4 Mg Tab.Subl) 0.4 mg SUBLINGUAL Q5M PRN PRN Reason: angina Omeprazole (Omeprazole 20 Mg Capsule.Dr) 20 mg PO DAILY@0630 [facility] Last Admin: 05/15/24 05:44 Dose: 20 mg Documented By: THALIA Sitagliptin Phosphate (Sitagliptin Phosphate 100 Mg Tablet) 100 mg PO DAILY [facility] Last Admin: 05/15/24 07:59 Dose: 100 mg Documented By: CEDRICK Sodium Chloride (0.9 % Sodium Chloride Flush 3 Ml Syringe) 3 ml IVFLUSH QSHIFT [facility] Last Admin: 05/15/24 07:47 Dose: Not Given Documented By: CEDRICK Non-Admin Reason: No Access Trolamine Salicylate (Trolamine Salicylate 10 % Cream 141 Gm Tube) 1 appl TOPICAL BID PRN; Protocol PRN Reason: both shoulders Last Admin: 05/14/24 21:11 Dose: 1 appl Documented By: THALIA Labs 03/24/24 16:45 Labs: Laboratory Results - last 24 hr 05/14/24 05/15/24 13:15 07:07 POC Glucose 147 H Estimat Average Glucose 174 Hemoglobin A1c % 7.7 H Assessment and Plan (1) Cognitive impairment: Status: Acute Plan 88yo F with vascular dementia, diabetes, hypertension, hyperlipidemia, and peptic ulcer disease presented with mechanical fall and found to have left foot fracture awaiting safe placement in ED, admitted to facilitate conservatorship/placement vascular dementia + cognitive impairment. stable, conservatorship pending. MOCA 08/02 DM2 Hba1c 7.7 continue GPZ, empagliflozin, sitagliptin, stable blood sugars at a.m. elevated at night, recommend diabetic diet L foot fx fractures > 8wk old, Ortho consulted, boot recommended, WBAT/ambulate t.i.d. bilateral shoulder pain/impingement on Aspercreme, DC lidocaine patch, encourage to do ROM exercises VTE ppx LMWH dispo LTC In my clinical judgment, the patient requires continued inpatient hospitalization for the following reasons: conservatorship/placement Quality Stroke Does the patient have a stroke diagnosis?: No VTE Prior VTE?: No VTE Risk Level:: Medical - moderate - high VTE Device Contraindication: Treatment Not Indicated VTE Drug Contraindication: N/A - Med Ordered
[2024-05-15 16:00] VITALS: BP 127/61; PULSE 81; RESP 18; TEMP 36.2; O2SAT 99
[2024-05-15] MEDS: Atorvastatin Calcium 10 MG TABLET PO (20:50)
[2024-05-15] MEDS: Melatonin 3 MG TABLET PO (20:50)
[2024-05-15] MEDS: Trolamine Salicylate 10 % Cream 141 gm Tube 1 APPL TOPICAL (20:50)
[2024-05-16] VITALS: BP 137/62; PULSE 73; RESP 16; TEMP 36.2; O2SAT 99
[2024-05-16] MEDS: Butalb/Acetamin/Caff 50/325/40 TABLET 1 TAB PO ×2 (00:26→16:25)
--- NOTE | 2024-05-16 01:45 | PC.NURSE ---
Pt c/o insomnia earlier in the night PRN melatonin given with good affect. Also complained of a heaache. PRN Fioricet given with good affect.
[2024-05-16] MEDS: Omeprazole 20 MG CAPSULE.DR PO (05:47)
[2024-05-16 07:43] LABS: Glucose, Whole Blood 127 mg/dL (60-115)
[2024-05-16 07:53] VITALS: BP 134/72; PULSE 72; RESP 18; TEMP 36.3; O2SAT 98
[2024-05-16] MEDS: Lactulose 20 GM/30 ML SOLUTION PO (09:19)
[2024-05-16] MEDS: SITagliptin Phosphate 100 MG TABLET PO (09:19)
[2024-05-16] MEDS: Aspirin Enteric Coated 81 MG TABLET.DR PO (09:20)
[2024-05-16] MEDS: Empagliflozin 10 MG TABLET PO (09:20)
[2024-05-16] MEDS: glipiZIDE 10 MG TABLET PO ×2 (09:20→20:29)
[2024-05-16] MEDS: Fluticasone Propionate Nasal 16 GM SPRAY 1 SPRAY NOSTRIL-B (09:21)
--- NOTE | 2024-05-16 10:36 | HO.PM.IMPN ---
Subjective Subjective Date of Service: 05/16/24 Interval History: Seen and examined this morning Follow-up for placement No overnight events Complaining of some tenderness left 2nd toe, no other complaints Review of Systems Review of Systems: Yes all other systems are reviewed and are negative Constitutional Constitutional: Denies fever(s) Physical Exam Vital Signs: Vital Signs: Last Vital Signs Temp 97.4 F 05/16/24 07:53 Pulse 72 05/16/24 07:53 Resp 18 05/16/24 07:53 BP 134/72 05/16/24 07:53 Pulse Ox 98 05/16/24 07:53 O2 Del Method Room Air 05/16/24 07:53 BMI result Body Mass Index 24.5 Const: General: cooperative, comfortable, no acute distress, alert and awake Nutritional Appearance: average body habitus Resp: Effort & Inspection: normal respiratory effort and able to speak in complete sentences Neuro: Other: grossly nonfocal Psych: Other: impaired insight Objective Data Active Medications Acetaminophen (Acetaminophen 325 Mg Tablet) 650 mg PO Q4H PRN PRN Reason: headache or pain Last Admin: 04/22/24 09:03 Dose: 650 mg Documented By: JIMY Acetaminophen/Butalbital/Caffeine (Butalb/Acetamin/Caff 50/325/40 Tablet) 1 tab PO Q4H PRN PRN Reason: Headache Last Admin: 05/16/24 00:26 Dose: 1 tab Documented By: THALIA Amitriptyline HCl (Amitriptyline Hcl 25 Mg Tablet) 25 mg PO BEDTIME [facility] Last Admin: 05/15/24 20:45 Dose: Not Given Documented By: THALIA Non-Admin Reason: Patient Refused Aspirin (Aspirin Enteric Coated 81 Mg Tablet.) 81 mg PO DAILY [facility] Last Admin: 05/16/24 09:20 Dose: 81 mg Documented By: GIL Atorvastatin Calcium (Atorvastatin Calcium 10 Mg Tablet) 10 mg PO BEDTIME [facility] Last Admin: 05/15/24 20:50 Dose: 10 mg Documented By: THALAI Empagliflozin (Empagliflozin 10 Mg Tablet) 10 mg PO DAILY [facility] Last Admin: 05/16/24 09:20 Dose: 10 mg Documented By: GIL Enoxaparin Sodium (Enoxaparin Sodium 40 Mg/0.4 Ml Syringe) 40 mg SUBCUT Q24H [facility] Last Admin: 05/15/24 17:35 Dose: Not Given Documented By: CEDRICK Non-Admin Reason: Patient Refused Fluticasone Propionate (Fluticasone Propionate Nasal 16 Gm [place]) 1 spray NOSTRIL-B BID [facility] Last Admin: 05/16/24 09:21 Dose: 1 spray Documented By: GIL Glipizide (Glipizide 10 Mg Tablet) 10 mg PO BID [facility] Last Admin: 05/16/24 09:20 Dose: 10 mg Documented By: GIL Lactulose (Lactulose 20 Gm/30 Ml Solution) 20 gm PO BID [facility] Last Admin: 05/16/24 09:19 Dose: 20 gm Documented By: GIL Melatonin (Melatonin 3 Mg Tablet) 3 mg PO BEDTIME PRN PRN Reason: Insomnia Last Admin: 05/15/24 20:50 Dose: 3 mg Documented By: THALIA Nitroglycerin (Nitroglycerin 0.4 Mg Tab.Subl) 0.4 mg SUBLINGUAL Q5M PRN PRN Reason: angina Omeprazole (Omeprazole 20 Mg Capsule.Dr) 20 mg PO DAILY@0630 [facility] Last Admin: 05/16/24 05:47 Dose: 20 mg Documented By: THALIA Sitagliptin Phosphate (Sitagliptin Phosphate 100 Mg Tablet) 100 mg PO DAILY [facility] Last Admin: 05/16/24 09:19 Dose: 100 mg Documented By: GIL Sodium Chloride (0.9 % Sodium Chloride Flush 3 Ml Syringe) 3 ml IVFLUSH QSHIFT [facility] Last Admin: 05/16/24 09:22 Dose: Not Given Documented By: GIL Non-Admin Reason: No IV access Trolamine Salicylate (Trolamine Salicylate 10 % Cream 141 Gm Tube) 1 appl TOPICAL BID PRN; Protocol PRN Reason: both shoulders Last Admin: 05/15/24 20:50 Dose: 1 appl Documented By: THALIA Labs 03/24/24 16:45 Labs: Laboratory Results - last 24 hr 05/16/24 07:38 POC Glucose 127 H Assessment and Plan (1) Cognitive impairment: Status: Acute Plan 88yo F with vascular dementia, diabetes, hypertension, hyperlipidemia, and peptic ulcer disease presented with mechanical fall and found to have left foot fracture awaiting safe placement in ED, admitted to facilitate conservatorship/placement vascular dementia + cognitive impairment. stable, conservatorship pending. MOCA 08/02 DM2 Hba1c 7.7 continue GPZ, empagliflozin, sitagliptin, stable blood sugars at a.m. elevated at night, recommend diabetic diet L foot fx fractures > 8wk old, Ortho consulted, boot recommended, WBAT/ambulate t.i.d. bilateral shoulder pain/impingement on Aspercreme, DC lidocaine patch, encourage to do ROM exercises VTE ppx LMWH dispo LTC In my clinical judgment, the patient requires continued inpatient hospitalization for the following reasons: conservatorship/placement Quality Stroke Does the patient have a stroke diagnosis?: No VTE Prior VTE?: No VTE Risk Level:: Medical - moderate - high VTE Device Contraindication: Treatment Not Indicated VTE Drug Contraindication: N/A - Med Ordered
[2024-05-16 11:52] LABS: Glucose, Whole Blood 228 mg/dL (60-115)
[2024-05-16 16:00] VITALS: BP 143/70; PULSE 84; RESP 18; TEMP 36.7; O2SAT 98
[2024-05-16 19:57] VITALS: BP 119/58; PULSE 87; RESP 20; TEMP 36.4; O2SAT 96
[2024-05-16 20:03] LABS: Glucose, Whole Blood 312 mg/dL (60-115)
[2024-05-16] MEDS: Atorvastatin Calcium 10 MG TABLET PO (20:29)
[2024-05-17] MEDS: Omeprazole 20 MG CAPSULE.DR PO (06:32)
[2024-05-17] MEDS: Trolamine Salicylate 10 % Cream 141 gm Tube 1 APPL TOPICAL (06:34)
[2024-05-17] MEDS: Butalb/Acetamin/Caff 50/325/40 TABLET 1 TAB PO ×2 (06:38→20:18)
[2024-05-17 07:53] LABS: Glucose, Whole Blood 153 mg/dL (60-115)
[2024-05-17 08:00] VITALS: BP 156/69; PULSE 88; RESP 20; TEMP 36.7; O2SAT 96
[2024-05-17] MEDS: Empagliflozin 10 MG TABLET PO (09:51)
[2024-05-17] MEDS: SITagliptin Phosphate 100 MG TABLET PO (09:51)
[2024-05-17] MEDS: Aspirin Enteric Coated 81 MG TABLET.DR PO (09:51)
[2024-05-17] MEDS: glipiZIDE 10 MG TABLET PO ×2 (09:51→20:18)
[2024-05-17] MEDS: Fluticasone Propionate Nasal 16 GM SPRAY 1 SPRAY NOSTRIL-B (09:52)
[2024-05-17 09:55] LABS: Hematocrit 37.4 % (37.0-47.0); Hemoglobin 12.1 g/dl (12.0-16.0); Mean Corpuscular HGB Conc 32.4 g/dl (31.0-35.0); Mean Corpuscular Hemoglobin 30.6 pg (27.0-33.0); Mean Corpuscular Volume 94.4 fL (80.0-98.0); Mean Platelet Volume 10.3 fL (9.4-12.3); Platelet Count 357 X10*3/uL (160-400); Red Blood Count 3.96 X10*6/uL (4.20-5.50); Red Cell Distribution Width 14.7 % (11.0-16.0); White Blood Count 6.3 X10*3/uL (4.8-10.8)
[2024-05-17 10:15] LABS: Anion Gap 11 (12-20); Blood Urea Nitrogen 18 mg/dL (9-16); Calcium 8.6 mg/dL (8.4-10.2); Carbon Dioxide 24 mmol/L (22-29); Chloride 109 mmol/L (96-108); Creatinine Clr Calc Pharmacy 48.4; Estimated Glomerular Filt Rate > 60; Glucose Random 242 mg/dL (60-115); Potassium 3.9 mmol/L (3.3-5.1); Sodium 140 mmol/L (135-145)
--- NOTE | 2024-05-17 10:36 | HO.PM.IMPN ---
Subjective Subjective Date of Service: 05/17/24 Interval History: Seen and examined this morning Follow-up for placement No overnight events Complaining of some tenderness left 2nd toe, no other complaints Review of Systems Review of Systems: Yes all other systems are reviewed and are negative Constitutional Constitutional: Denies fever(s) Physical Exam Vital Signs: Vital Signs: Last Vital Signs Temp 98.1 F 05/17/24 08:00 Pulse 88 05/17/24 08:00 Resp 20 05/17/24 08:00 BP 156/69 H 05/17/24 08:00 Pulse Ox 96 05/17/24 08:00 O2 Del Method Room Air 05/17/24 08:00 BMI result Body Mass Index 24.5 Appearing in no acute distress lung sounds are clear to auscultation heart regular rate rhythm, clear S1, S2 positive bowel sounds, abdomen is soft, nontender neuro patient is alert, confused Objective Data Active Medications Acetaminophen (Acetaminophen 325 Mg Tablet) 650 mg PO Q4H PRN PRN Reason: headache or pain Last Admin: 04/22/24 09:03 Dose: 650 mg Documented By: JIMY Acetaminophen/Butalbital/Caffeine (Butalb/Acetamin/Caff 50/325/40 Tablet) 1 tab PO Q4H PRN PRN Reason: Headache Last Admin: 05/17/24 06:38 Dose: 1 tab Documented By: FIONA Amitriptyline HCl (Amitriptyline Hcl 25 Mg Tablet) 25 mg PO BEDTIME [facility] Last Admin: 05/16/24 20:33 Dose: Not Given Documented By: CHELSEA Non-Admin Reason: Patient Refused Aspirin (Aspirin Enteric Coated 81 Mg Tablet.) 81 mg PO DAILY [facility] Last Admin: 05/17/24 09:51 Dose: 81 mg Documented By: NATHANAEL Atorvastatin Calcium (Atorvastatin Calcium 10 Mg Tablet) 10 mg PO BEDTIME [facility] Last Admin: 05/16/24 20:29 Dose: 10 mg Documented By: CHELSEA Empagliflozin (Empagliflozin 10 Mg Tablet) 10 mg PO DAILY [facility] Last Admin: 05/17/24 09:51 Dose: 10 mg Documented By: NATHANAEL Enoxaparin Sodium (Enoxaparin Sodium 40 Mg/0.4 Ml Syringe) 40 mg SUBCUT Q24H [facility] Last Admin: 05/16/24 20:33 Dose: Not Given Documented By: CHELSEA Non-Admin Reason: Patient Refused Fluticasone Propionate (Fluticasone Propionate Nasal 16 Gm [place]) 1 spray NOSTRIL-B BID [facility] Last Admin: 05/17/24 09:52 Dose: 1 spray Documented By: NATHANAEL Glipizide (Glipizide 10 Mg Tablet) 10 mg PO BID [facility] Last Admin: 05/17/24 09:51 Dose: 10 mg Documented By: NATHANAEL Lactulose (Lactulose 20 Gm/30 Ml Solution) 20 gm PO BID [facility] Last Admin: 05/17/24 09:54 Dose: Not Given Documented By: NATHANAEL Non-Admin Reason: Patient Refused Melatonin (Melatonin 3 Mg Tablet) 3 mg PO BEDTIME PRN PRN Reason: Insomnia Last Admin: 05/15/24 20:50 Dose: 3 mg Documented By: THALIA Nitroglycerin (Nitroglycerin 0.4 Mg Tab.Subl) 0.4 mg SUBLINGUAL Q5M PRN PRN Reason: angina Omeprazole (Omeprazole 20 Mg Capsule.Dr) 20 mg PO DAILY@0630 [facility] Last Admin: 05/17/24 06:32 Dose: 20 mg Documented By: FIONA Sitagliptin Phosphate (Sitagliptin Phosphate 100 Mg Tablet) 100 mg PO DAILY [facility] Last Admin: 05/17/24 09:51 Dose: 100 mg Documented By: NATHANAEL Sodium Chloride (0.9 % Sodium Chloride Flush 3 Ml Syringe) 3 ml IVFLUSH QSHIFT [facility] Last Admin: 05/17/24 09:07 Dose: Not Given Documented By: NATHANAEL Non-Admin Reason: No Access Trolamine Salicylate (Trolamine Salicylate 10 % Cream 141 Gm Tube) 1 appl TOPICAL BID PRN; Protocol PRN Reason: both shoulders Last Admin: 05/17/24 06:34 Dose: 1 appl Documented By: FIONA Labs 05/17/24 09:36 05/17/24 09:36 Labs: Laboratory Results - last 24 hr 05/16/24 05/16/24 05/17/24 11:48 19:59 07:10 MCV MCH MCHC RDW Plt Count MPV Absolute Nucleated RBC Nucleated RBC % (auto) Anion Gap Estim Creat Clear Calc Estimated GFR POC Glucose 228 H 312 H 153 H Random Glucose Calcium 05/17/24 09:36 MCV 94.4 MCH 30.6 MCHC 32.4 RDW 14.7 Plt Count 357 MPV 10.3 Absolute Nucleated RBC 0.000 Nucleated RBC % (auto) 0.0 Anion Gap 11 L Estim Creat Clear Calc 48.4 Estimated GFR > 60 POC Glucose Random Glucose 242 H Calcium 8.6 Assessment and Plan (1) Cognitive impairment: Status: Acute Plan 88yo F with vascular dementia, diabetes, hypertension, hyperlipidemia, and peptic ulcer disease presented with mechanical fall and found to have left foot fracture awaiting safe placement in ED, admitted to facilitate conservatorship/placement vascular dementia + cognitive impairment. stable, conservatorship pending. MOCA 08/02 DM2 Hba1c 7.7 continue GPZ, empagliflozin, sitagliptin stable blood sugars at a.m. elevated at night diabetic diet L foot fx fractures > 8wk old, Ortho consulted>boot recommended WBAT/ambulate t.i.d. bilateral shoulder pain/impingement on Aspercreme DC lidocaine patch encourage to do ROM exercises VTE ppx LMWH attending Dr. Colby teresa [facility] In my clinical judgment, the patient requires continued inpatient hospitalization for the following reasons: conservatorship/placement Quality Stroke Does the patient have a stroke diagnosis?: No VTE Prior VTE?: No VTE Risk Level:: Medical - moderate - high VTE Device Contraindication: Treatment Not Indicated VTE Drug Contraindication: N/A - Med Ordered
--- NOTE | 2024-05-17 12:51 | MHC.CM.PN ---
Pt medically cleared and waiting to transfer to a SNF, guardian has applied for [facility], awaiting acceptance and SNF placement.
[2024-05-17 15:51] VITALS: BP 103/72; PULSE 88; RESP 18; TEMP 36.8; O2SAT 98
[2024-05-17] MEDS: Melatonin 3 MG TABLET PO (20:18)
[2024-05-17] MEDS: Atorvastatin Calcium 10 MG TABLET PO (20:18)
[2024-05-18] VITALS: BP 142/67; PULSE 85; RESP 20; TEMP 36.5; O2SAT 98
[2024-05-18] MEDS: Butalb/Acetamin/Caff 50/325/40 TABLET 1 TAB PO (02:51)
[2024-05-18] MEDS: Omeprazole 20 MG CAPSULE.DR PO (05:52)
[2024-05-18 07:48] LABS: Glucose, Whole Blood 113 mg/dL (60-115)
[2024-05-18 07:57] VITALS: BP 147/69; PULSE 81; RESP 20; TEMP 36.2; O2SAT 99
[2024-05-18] MEDS: Empagliflozin 10 MG TABLET PO (08:57)
[2024-05-18] MEDS: Aspirin Enteric Coated 81 MG TABLET.DR PO (08:57)
[2024-05-18] MEDS: SITagliptin Phosphate 100 MG TABLET PO (08:57)
[2024-05-18] MEDS: glipiZIDE 10 MG TABLET PO ×2 (08:57→19:58)
[2024-05-18] MEDS: Fluticasone Propionate Nasal 16 GM SPRAY 1 SPRAY NOSTRIL-B ×2 (08:58→19:58)
--- NOTE | 2024-05-18 09:48 | P.PNIM_ITS ---
Subjective Subjective Date of Service: 05/18/24 Interval History: Seen and examined this morning Follow-up for placement No overnight events Review of Systems Review of Systems: Yes all other systems are reviewed and are negative Constitutional Constitutional: Denies fever(s) Physical Exam 2 Vital Signs: Vital Signs: Last Vital Signs Temp 97.2 F 05/18/24 07:57 Pulse 81 05/18/24 07:57 Resp 20 05/18/24 07:57 BP 147/69 H 05/18/24 07:57 Pulse Ox 99 05/18/24 07:57 O2 Del Method Room Air 05/18/24 07:57 BMI result Body Mass Index 24.5 Appearing in no acute distress lung sounds are clear to auscultation heart regular rate rhythm, clear S1, S2 positive bowel sounds, abdomen is soft, nontender neuro patient is alert , confused Objective Data Active Medications Acetaminophen (Acetaminophen 325 Mg Tablet) 650 mg PO Q4H PRN PRN Reason: headache or pain Last Admin: 04/22/24 09:03 Dose: 650 mg Documented By: JIMY Acetaminophen/Butalbital/Caffeine (Butalb/Acetamin/Caff 50/325/40 Tablet) 1 tab PO Q4H PRN PRN Reason: Headache Last Admin: 05/18/24 02:51 Dose: 1 tab Documented By: PATY Amitriptyline HCl (Amitriptyline Hcl 25 Mg Tablet) 25 mg PO BEDTIME [facility] Last Admin: 05/17/24 20:12 Dose: Not Given Documented By: PATY Non-Admin Reason: Patient Refused Aspirin (Aspirin Enteric Coated 81 Mg Tablet.) 81 mg PO DAILY [facility] Last Admin: 05/18/24 08:57 Dose: 81 mg Documented By: MARY Atorvastatin Calcium (Atorvastatin Calcium 10 Mg Tablet) 10 mg PO BEDTIME [facility] Last Admin: 05/17/24 20:18 Dose: 10 mg Documented By: PATY Empagliflozin (Empagliflozin 10 Mg Tablet) 10 mg PO DAILY [facility] Last Admin: 05/18/24 08:57 Dose: 10 mg Documented By: MARY Enoxaparin Sodium (Enoxaparin Sodium 40 Mg/0.4 Ml Syringe) 40 mg SUBCUT Q24H [facility] Last Admin: 05/17/24 20:11 Dose: Not Given Documented By: PATY Non-Admin Reason: Patient Refused Fluticasone Propionate (Fluticasone Propionate Nasal 16 Gm [place]) 1 spray NOSTRIL-B BID [facility] Last Admin: 05/18/24 08:58 Dose: 1 spray Documented By: MARY Glipizide (Glipizide 10 Mg Tablet) 10 mg PO BID [facility] Last Admin: 05/18/24 08:57 Dose: 10 mg Documented By: MARY Lactulose (Lactulose 20 Gm/30 Ml Solution) 20 gm PO BID [facility] Last Admin: 05/18/24 08:57 Dose: Not Given Documented By: MARY Non-Admin Reason: Patient Refused Melatonin (Melatonin 3 Mg Tablet) 3 mg PO BEDTIME PRN PRN Reason: Insomnia Last Admin: 05/17/24 20:18 Dose: 3 mg Documented By: PATY Nitroglycerin (Nitroglycerin 0.4 Mg Tab.Subl) 0.4 mg SUBLINGUAL Q5M PRN PRN Reason: angina Omeprazole (Omeprazole 20 Mg Capsule.Dr) 20 mg PO DAILY@0630 [facility] Last Admin: 05/18/24 05:52 Dose: 20 mg Documented By: PATY Sitagliptin Phosphate (Sitagliptin Phosphate 100 Mg Tablet) 100 mg PO DAILY [facility] Last Admin: 05/18/24 08:57 Dose: 100 mg Documented By: MARY Sodium Chloride (0.9 % Sodium Chloride Flush 3 Ml Syringe) 3 ml IVFLUSH QSHIFT [facility] Last Admin: 05/18/24 08:47 Dose: Not Given Documented By: MARY Non-Admin Reason: No Access Trolamine Salicylate (Trolamine Salicylate 10 % Cream 141 Gm Tube) 1 appl TOPICAL BID PRN; Protocol PRN Reason: both shoulders Last Admin: 05/17/24 06:34 Dose: 1 appl Documented By: FIONA Labs 05/17/24 09:36 05/17/24 09:36 Labs: Laboratory Results - last 24 hr 05/17/24 05/18/24 09:36 07:08 MCV 94.4 MCH 30.6 MCHC 32.4 RDW 14.7 Plt Count 357 MPV 10.3 Absolute Nucleated RBC 0.000 Nucleated RBC % (auto) 0.0 Anion Gap 11 L Estim Creat Clear Calc 48.4 Estimated GFR > 60 POC Glucose 113 Random Glucose 242 H Calcium 8.6 Assessment and Plan (1) Cognitive impairment: Status: Acute Plan 88yo F with vascular dementia, diabetes, hypertension, hyperlipidemia, and peptic ulcer disease presented with mechanical fall and found to have left foot fracture awaiting safe placement in ED, admitted to facilitate conservatorship/placement vascular dementia + cognitive impairment. stable, conservatorship pending. MOCA 08/02 DM2 Hba1c 7.7 continue GPZ, empagliflozin, sitagliptin stable blood sugars at a.m. elevated at night diabetic diet L foot fx fractures > 8wk old, Ortho consulted>boot recommended WBAT/ambulate t.i.d. bilateral shoulder pain/impingement on Aspercreme DC lidocaine patch encourage to do ROM exercises VTE ppx LMWH attending Dr. Colby teresa [facility] In my clinical judgment, the patient requires continued inpatient hospitalization for the following reasons: conservatorship/placement Quality Stroke Does the patient have a stroke diagnosis?: No VTE Prior VTE?: No VTE Risk Level:: Medical - moderate - high VTE Device Contraindication: Treatment Not Indicated VTE Drug Contraindication: N/A - Med Ordered
--- NOTE | 2024-05-18 13:15 | MHC.CM.PN ---
EMR reviewed and per MD rounds, pt remains medically cleared for discharge but unable to due to pending MH, pt will also need a conservatorship which will take place on 06/01/24 at 1:45pm, and will then need LTC placement ([facility]).
[2024-05-18 15:14] VITALS: BP 116/61; PULSE 85; RESP 18; TEMP 36.7; O2SAT 97
[2024-05-18 16:24] LABS: Glucose, Whole Blood 268 mg/dL (60-115)
--- NOTE | 2024-05-18 19:11 | PC.NURSE ---
Patient transferred from [facility] tele, a&o to self and place only, confused and forgetful, no complaint of pain at this time, patient oriented to the room, ambulate to the bathroom with a walker and stand by assist. Patient educated on safety and call [facility] use for help.
[2024-05-18 19:49] VITALS: BP 113/58; PULSE 81; RESP 18; TEMP 36.5; O2SAT 98
[2024-05-18] MEDS: Atorvastatin Calcium 10 MG TABLET PO (19:58)
[2024-05-18 23:25] VITALS: BP 145/70; PULSE 81; RESP 16; TEMP 36.6; O2SAT 99
[2024-05-19] MEDS: Omeprazole 20 MG CAPSULE.DR PO (05:23)
[2024-05-19] MEDS: Butalb/Acetamin/Caff 50/325/40 TABLET 1 TAB PO (06:44)
[2024-05-19 07:00] VITALS: BP 118/58; PULSE 86; RESP 18; TEMP 36.6; O2SAT 98
[2024-05-19 07:05] LABS: Glucose, Whole Blood 108 mg/dL (60-115)
[2024-05-19] MEDS: glipiZIDE 10 MG TABLET PO ×2 (09:17→20:33)
[2024-05-19] MEDS: SITagliptin Phosphate 100 MG TABLET PO (09:17)
[2024-05-19] MEDS: Empagliflozin 10 MG TABLET PO (09:17)
[2024-05-19] MEDS: Aspirin Enteric Coated 81 MG TABLET.DR PO (09:17)
[2024-05-19] MEDS: Fluticasone Propionate Nasal 16 GM SPRAY 1 SPRAY NOSTRIL-B (09:18)
[2024-05-19 11:08] LABS: Glucose, Whole Blood 140 mg/dL (60-115)
--- NOTE | 2024-05-19 12:44 | P.PNIM_ITS ---
Subjective Subjective Date of Service: 05/19/24 Interval History: Being followed for placement Good pain control both shoulders, trying range of motion exercises, tolerating diet no acute events overnight. Review of Systems All other system are reviewed and are negative. Physical Exam 2 Vital Signs: Vital Signs: Last Vital Signs Temp 98 F 05/19/24 07:00 Pulse 86 05/19/24 07:00 Resp 18 05/19/24 07:00 BP 118/58 L 05/19/24 07:00 Pulse Ox 98 05/19/24 07:00 O2 Del Method Room Air 05/19/24 07:00 BMI result Body Mass Index 24.5 Const: Other: Gen: Awake alert, in no acute distress Lungs: clear to auscultation bilaterally Heart: regular rate and rhythm, no murmurs Abd: soft, non-tender, non-distended Ext: No edema/both shoulders limited range of motion right greater than left, no warmth, no redness. Skin: warm/well-perfused Neuro: alert, no focal weakness Psych: impaired insight Objective Data Active Medications Acetaminophen (Acetaminophen 325 Mg Tablet) 650 mg PO Q4H PRN PRN Reason: headache or pain Last Admin: 04/22/24 09:03 Dose: 650 mg Documented By: JIMY Acetaminophen/Butalbital/Caffeine (Butalb/Acetamin/Caff 50/325/40 Tablet) 1 tab PO Q4H PRN PRN Reason: Headache Last Admin: 05/19/24 06:44 Dose: 1 tab Documented By: JOSE E Amitriptyline HCl (Amitriptyline Hcl 25 Mg Tablet) 25 mg PO BEDTIME [facility] Last Admin: 05/18/24 20:00 Dose: Not Given Documented By: JOSE E Non-Admin Reason: Patient Refused Aspirin (Aspirin Enteric Coated 81 Mg Tablet.) 81 mg PO DAILY [facility] Last Admin: 05/19/24 09:17 Dose: 81 mg Documented By: LILIAM Atorvastatin Calcium (Atorvastatin Calcium 10 Mg Tablet) 10 mg PO BEDTIME [facility] Last Admin: 05/18/24 19:58 Dose: 10 mg Documented By: JOSE E Empagliflozin (Empagliflozin 10 Mg Tablet) 10 mg PO DAILY [facility] Last Admin: 05/19/24 09:17 Dose: 10 mg Documented By: LILIAM Enoxaparin Sodium (Enoxaparin Sodium 40 Mg/0.4 Ml Syringe) 40 mg SUBCUT Q24H [facility] Last Admin: 05/18/24 18:10 Dose: Not Given Documented By: MARA Non-Admin Reason: Patient Refused Fluticasone Propionate (Fluticasone Propionate Nasal 16 Gm [place]) 1 spray NOSTRIL-B BID [facility] Last Admin: 05/19/24 09:18 Dose: 1 spray Documented By: LILIAM Glipizide (Glipizide 10 Mg Tablet) 10 mg PO BID [facility] Last Admin: 05/19/24 09:17 Dose: 10 mg Documented By: LILIAM Melatonin (Melatonin 3 Mg Tablet) 3 mg PO BEDTIME PRN PRN Reason: Insomnia Last Admin: 05/17/24 20:18 Dose: 3 mg Documented By: PATY Nitroglycerin (Nitroglycerin 0.4 Mg Tab.Subl) 0.4 mg SUBLINGUAL Q5M PRN PRN Reason: angina Omeprazole (Omeprazole 20 Mg Capsule.) 20 mg PO DAILY@0630 [facility] Last Admin: 05/19/24 05:23 Dose: 20 mg Documented By: JOSE E Sitagliptin Phosphate (Sitagliptin Phosphate 100 Mg Tablet) 100 mg PO DAILY [facility] Last Admin: 05/19/24 09:17 Dose: 100 mg Documented By: LILIAM Sodium Chloride (0.9 % Sodium Chloride Flush 3 Ml Syringe) 3 ml IVFLUSH QSHIFT [facility] Last Admin: 05/19/24 09:15 Dose: Not Given Documented By: LILIAM Non-Admin Reason: No Access Trolamine Salicylate (Trolamine Salicylate 10 % Cream 141 Gm Tube) 1 appl TOPICAL BID PRN; Protocol PRN Reason: both shoulders Last Admin: 05/17/24 06:34 Dose: 1 appl Documented By: FIONA Labs 05/17/24 09:36 05/17/24 09:36 Labs: Laboratory Results - last 24 hr 05/18/24 05/19/24 05/19/24 16:06 07:02 11:00 POC Glucose 268 H 108 140 H Assessment and Plan (1) Cognitive impairment: Status: Acute Plan 88yo F with vascular dementia, diabetes, hypertension, hyperlipidemia, and peptic ulcer disease presented with mechanical fall and found to have left foot fracture awaiting safe placement in ED, admitted to facilitate conservatorship/placement vascular dementia + cognitive impairment. stable, conservatorship pending. MOCA 08/02 DM2 Hba1c 7.7 continue GPZ, empagliflozin, sitagliptin stable blood sugars at a.m. continue diabetic diet L foot fx fractures > 8wk old, Ortho consulted>boot recommended WBAT/ambulate t.i.d. bilateral shoulder pain/impingement on Aspercreme DC lidocaine patch encourage to do ROM exercises VTE ppx LMWH dispo LTC In my clinical judgment, the patient requires continued inpatient hospitalization for the following reasons: conservatorship/placement Quality Stroke Does the patient have a stroke diagnosis?: No VTE Prior VTE?: No VTE Risk Level:: Medical - moderate - high VTE Device Contraindication: Treatment Not Indicated VTE Drug Contraindication: N/A - Med Ordered
--- NOTE | 2024-05-19 13:32 | MHC.CM.PN ---
[facility] UPDATED WITH PLAN FOR CONSERVATOR HEARING 06/01/24. CM FOLLOWING
[2024-05-19 15:10] VITALS: BP 152/64; PULSE 87; RESP 20; TEMP 36.9; O2SAT 98
[2024-05-19 16:43] LABS: Glucose, Whole Blood 219 mg/dL (60-115)
--- NOTE | 2024-05-19 18:00 | PC.NURSE ---
patient refused lovenox,explained risks to patient,encouraged activity
[2024-05-19 19:27] VITALS: BP 117/58; PULSE 86; RESP 18; TEMP 36.6; O2SAT 97
[2024-05-19] MEDS: Atorvastatin Calcium 10 MG TABLET PO (20:33)
[2024-05-19] MEDS: Acetaminophen 325 MG TABLET 650 MG PO (20:33)
[2024-05-19] MEDS: Trolamine Salicylate 10 % Cream 141 gm Tube 1 APPL TOPICAL (20:34)
[2024-05-19 23:34] VITALS: BP 176/80; PULSE 76; RESP 16; TEMP 36; O2SAT 98
[2024-05-20] MEDS: Omeprazole 20 MG CAPSULE.DR PO (05:39)
[2024-05-20] MEDS: Butalb/Acetamin/Caff 50/325/40 TABLET 1 TAB PO ×2 (05:43→10:37)
[2024-05-20 07:26] VITALS: BP 171/78; PULSE 71; RESP 16; TEMP 36.6; O2SAT 98
[2024-05-20 07:45] LABS: Glucose, Whole Blood 108 mg/dL (60-115)
[2024-05-20] MEDS: SITagliptin Phosphate 100 MG TABLET PO (10:24)
[2024-05-20] MEDS: Aspirin Enteric Coated 81 MG TABLET.DR PO (10:24)
[2024-05-20] MEDS: Fluticasone Propionate Nasal 16 GM SPRAY 1 SPRAY NOSTRIL-B (10:24)
[2024-05-20] MEDS: glipiZIDE 10 MG TABLET PO ×2 (10:24→19:54)
[2024-05-20] MEDS: Empagliflozin 10 MG TABLET PO (10:24)
--- NOTE | 2024-05-20 11:19 | HO.PM.IMPN ---
Subjective Subjective Date of Service: 05/20/24 Interval History: Being followed for placement. Offers no acute complaints, tolerating diet no nausea, no vomiting, no abdominal pain, no diarrhea no other acute issues overnight. Review of Systems All other system reviewed and are negative. Physical Exam Vital Signs: Vital Signs: Last Vital Signs Temp 97.8 F 05/20/24 07:26 Pulse 71 05/20/24 07:26 Resp 16 05/20/24 07:26 BP 171/78 H 05/20/24 07:26 Pulse Ox 98 05/20/24 07:26 O2 Del Method Room Air 05/20/24 07:26 BMI result Body Mass Index 24.5 Const: Other: Gen: Awake alert, in no acute distress Lungs: clear to auscultation bilaterally Heart: regular rate and rhythm, no murmurs Abd: soft, non-tender, non-distended Ext: No edema/both shoulders limited range of motion right greater than left, no warmth, no redness. Skin: warm/well-perfused Neuro: alert, no focal weakness Psych: impaired insight Objective Data Active Medications Acetaminophen (Acetaminophen 325 Mg Tablet) 650 mg PO Q4H PRN PRN Reason: headache or pain Last Admin: 05/19/24 20:33 Dose: 650 mg Documented By: SON Acetaminophen/Butalbital/Caffeine (Butalb/Acetamin/Caff 50/325/40 Tablet) 1 tab PO Q4H PRN PRN Reason: Headache Last Admin: 05/20/24 10:37 Dose: 1 tab Documented By: NERIS Amitriptyline HCl (Amitriptyline Hcl 25 Mg Tablet) 25 mg PO BEDTIME [facility] Last Admin: 05/19/24 20:44 Dose: Not Given Documented By: SNO Non-Admin Reason: Patient Refused Aspirin (Aspirin Enteric Coated 81 Mg Tablet.) 81 mg PO DAILY [facility] Last Admin: 05/20/24 10:24 Dose: 81 mg Documented By: NERIS Atorvastatin Calcium (Atorvastatin Calcium 10 Mg Tablet) 10 mg PO BEDTIME [facility] Last Admin: 05/19/24 20:33 Dose: 10 mg Documented By: SON Empagliflozin (Empagliflozin 10 Mg Tablet) 10 mg PO DAILY [facility] Last Admin: 05/20/24 10:24 Dose: 10 mg Documented By: NERIS Enoxaparin Sodium (Enoxaparin Sodium 40 Mg/0.4 Ml Syringe) 40 mg SUBCUT Q24H [facility] Last Admin: 05/19/24 18:00 Dose: Not Given Documented By: LILIAM Non-Admin Reason: Patient Refused Fluticasone Propionate (Fluticasone Propionate Nasal 16 Gm [place]) 1 spray NOSTRIL-B BID [facility] Last Admin: 05/20/24 10:24 Dose: 1 spray Documented By: NERIS Glipizide (Glipizide 10 Mg Tablet) 10 mg PO BID [facility] Last Admin: 05/20/24 10:24 Dose: 10 mg Documented By: NERIS Melatonin (Melatonin 3 Mg Tablet) 3 mg PO BEDTIME PRN PRN Reason: Insomnia Last Admin: 05/17/24 20:18 Dose: 3 mg Documented By: PATY Nitroglycerin (Nitroglycerin 0.4 Mg Tab.Subl) 0.4 mg SUBLINGUAL Q5M PRN PRN Reason: angina Omeprazole (Omeprazole 20 Mg Capsule.Dr) 20 mg PO DAILY@0630 [facility] Last Admin: 05/20/24 05:39 Dose: 20 mg Documented By: SON Sitagliptin Phosphate (Sitagliptin Phosphate 100 Mg Tablet) 100 mg PO DAILY [facility] Last Admin: 05/20/24 10:24 Dose: 100 mg Documented By: NERIS Sodium Chloride (0.9 % Sodium Chloride Flush 3 Ml Syringe) 3 ml IVFLUSH QSHIFT [facility] Last Admin: 05/20/24 10:24 Dose: Not Given Documented By: NERIS Non-Admin Reason: No Access Trolamine Salicylate (Trolamine Salicylate 10 % Cream 141 Gm Tube) 1 appl TOPICAL BID PRN; Protocol PRN Reason: both shoulders Last Admin: 05/19/24 20:34 Dose: 1 appl Documented By: SON Labs 05/17/24 09:36 05/17/24 09:36 Labs: Laboratory Results - last 24 hr 05/19/24 05/20/24 16:40 07:32 POC Glucose 219 H 108 Assessment and Plan (1) Cognitive impairment: Status: Acute Plan 88yo F with vascular dementia, diabetes, hypertension, hyperlipidemia, and peptic ulcer disease presented with mechanical fall and found to have left foot fracture awaiting safe placement in ED, admitted to facilitate conservatorship/placement vascular dementia + cognitive impairment. stable, conservatorship pending. MOCA 08/02 DM2 Hba1c 7.7 continue GPZ, empagliflozin, sitagliptin stable blood sugars at a.m. continue diabetic diet L foot fx fractures > 8wk old, Ortho consulted>boot recommended WBAT/ambulate t.i.d. bilateral shoulder pain/impingement on Aspercreme/Tylenol encourage to do ROM exercises VTE ppx LMWH dispo LTC In my clinical judgment, the patient requires continued inpatient hospitalization for the following reasons: conservatorship/placement Quality Stroke Does the patient have a stroke diagnosis?: No VTE Prior VTE?: No VTE Risk Level:: Medical - moderate - high VTE Device Contraindication: Treatment Not Indicated VTE Drug Contraindication: N/A - Med Ordered
[2024-05-20 11:31] LABS: Glucose, Whole Blood 160 mg/dL (60-115)
[2024-05-20 14:58] VITALS: BP 132/73; PULSE 95; RESP 16; TEMP 36.9; O2SAT 97
[2024-05-20 16:28] LABS: Glucose, Whole Blood 233 mg/dL (60-115)
[2024-05-20 19:21] VITALS: BP 127/67; PULSE 97; RESP 20; TEMP 37.2; O2SAT 99
[2024-05-20] MEDS: Atorvastatin Calcium 10 MG TABLET PO (19:54)
[2024-05-21] MEDS: Butalb/Acetamin/Caff 50/325/40 TABLET 1 TAB PO (01:40)
[2024-05-21] MEDS: Omeprazole 20 MG CAPSULE.DR PO (05:36)
[2024-05-21 07:13] VITALS: BP 136/64; PULSE 81; RESP 18; TEMP 36.6; O2SAT 97
[2024-05-21 07:38] LABS: Glucose, Whole Blood 146 mg/dL (60-115)
[2024-05-21] MEDS: glipiZIDE 10 MG TABLET PO ×2 (09:34→19:50)
[2024-05-21] MEDS: Empagliflozin 10 MG TABLET PO (09:35)
[2024-05-21] MEDS: Aspirin Enteric Coated 81 MG TABLET.DR PO (09:35)
[2024-05-21] MEDS: SITagliptin Phosphate 100 MG TABLET PO (09:35)
[2024-05-21] MEDS: Fluticasone Propionate Nasal 16 GM SPRAY 1 SPRAY NOSTRIL-B ×2 (09:35→19:52)
--- NOTE | 2024-05-21 10:37 | MHC.CM.PN ---
Patient continues to await conservator, [facility], and LTC placement. CM will continue to follow.
--- NOTE | 2024-05-21 11:53 | P.PNIM_ITS ---
Subjective Subjective Date of Service: 05/21/24 Interval History: Being followed for placement Offers no acute complaints good range of motion left shoulder, improving right shoulder range of motion, good pain control, no other acute events overnight. Review of Systems All other system are reviewed and are negative. Physical Exam 2 Vital Signs: Vital Signs: Last Vital Signs Temp 97.8 F 05/21/24 07:13 Pulse 81 05/21/24 07:13 Resp 18 05/21/24 07:13 BP 136/64 05/21/24 07:13 Pulse Ox 97 05/21/24 07:13 O2 Del Method Room Air 05/21/24 07:13 BMI result Body Mass Index 24.5 Const: Other: Gen: Awake alert, in no acute distress Lungs: clear to auscultation bilaterally Heart: regular rate and rhythm, no murmurs Abd: soft, non-tender, non-distended Ext: No edema/left shoulder improved range of motion, right shoulder no warmth, no redness, range of motion improving gradually, less pain with activity. Skin: warm/well-perfused Neuro: alert, no focal weakness Psych: impaired insight Objective Data Active Medications Acetaminophen (Acetaminophen 325 Mg Tablet) 650 mg PO Q4H PRN PRN Reason: headache or pain Last Admin: 05/19/24 20:33 Dose: 650 mg Documented By: SON Acetaminophen/Butalbital/Caffeine (Butalb/Acetamin/Caff 50/325/40 Tablet) 1 tab PO Q4H PRN PRN Reason: Headache Last Admin: 05/21/24 01:40 Dose: 1 tab Documented By: GINETTE Comments: computers down. Amitriptyline HCl (Amitriptyline Hcl 25 Mg Tablet) 25 mg PO BEDTIME [facility] Last Admin: 05/20/24 20:01 Dose: Not Given Documented By: GINETTE Non-Admin Reason: Patient Refused Aspirin (Aspirin Enteric Coated 81 Mg Tablet.) 81 mg PO DAILY [facility] Last Admin: 05/21/24 09:35 Dose: 81 mg Documented By: NERIS Atorvastatin Calcium (Atorvastatin Calcium 10 Mg Tablet) 10 mg PO BEDTIME [facility] Last Admin: 05/20/24 19:54 Dose: 10 mg Documented By: GINETTE Empagliflozin (Empagliflozin 10 Mg Tablet) 10 mg PO DAILY [facility] Last Admin: 05/21/24 09:35 Dose: 10 mg Documented By: NERIS Enoxaparin Sodium (Enoxaparin Sodium 40 Mg/0.4 Ml Syringe) 40 mg SUBCUT Q24H [facility] Last Admin: 05/20/24 18:19 Dose: Not Given Documented By: NERIS Non-Admin Reason: Patient Refused Fluticasone Propionate (Fluticasone Propionate Nasal 16 Gm [place]) 1 spray NOSTRIL-B BID [facility] Last Admin: 05/21/24 09:35 Dose: 1 spray Documented By: NERIS Glipizide (Glipizide 10 Mg Tablet) 10 mg PO BID [facility] Last Admin: 05/21/24 09:34 Dose: 10 mg Documented By: NERIS Melatonin (Melatonin 3 Mg Tablet) 3 mg PO BEDTIME PRN PRN Reason: Insomnia Last Admin: 05/17/24 20:18 Dose: 3 mg Documented By: PATY Nitroglycerin (Nitroglycerin 0.4 Mg Tab.Subl) 0.4 mg SUBLINGUAL Q5M PRN PRN Reason: angina Omeprazole (Omeprazole 20 Mg Capsule.Dr) 20 mg PO DAILY@0630 [facility] Last Admin: 05/21/24 05:36 Dose: 20 mg Documented By: GINETTE Comments: computers down. Sitagliptin Phosphate (Sitagliptin Phosphate 100 Mg Tablet) 100 mg PO DAILY [facility] Last Admin: 05/21/24 09:35 Dose: 100 mg Documented By: NERIS Sodium Chloride (0.9 % Sodium Chloride Flush 3 Ml Syringe) 3 ml IVFLUSH QSHIFT [facility] Last Admin: 05/21/24 09:33 Dose: Not Given Documented By: NERIS Non-Admin Reason: No Access Trolamine Salicylate (Trolamine Salicylate 10 % Cream 141 Gm Tube) 1 appl TOPICAL BID PRN; Protocol PRN Reason: both shoulders Last Admin: 05/19/24 20:34 Dose: 1 appl Documented By: SON Labs 05/17/24 09:36 05/17/24 09:36 Labs: Laboratory Results - last 24 hr 05/20/24 05/21/24 15:54 07:20 POC Glucose 233 H 146 H Assessment and Plan (1) Cognitive impairment: Status: Acute Plan 88yo F with vascular dementia, diabetes, hypertension, hyperlipidemia, and peptic ulcer disease presented with mechanical fall and found to have left foot fracture awaiting safe placement in ED, admitted to facilitate conservatorship/placement vascular dementia + cognitive impairment. stable, conservatorship pending. MOCA 08/02 DM2 Hba1c 7.7 continue GPZ, empagliflozin, sitagliptin stable blood sugars at a.m. continue diabetic diet L foot fx fractures > 8wk old, Ortho consulted>boot recommended WBAT/ambulate t.i.d. bilateral shoulder pain/impingement on Aspercreme/Tylenol encourage to do ROM exercises VTE ppx LMWH dispo LTC In my clinical judgment, the patient requires continued inpatient hospitalization for the following reasons: conservatorship/placement Quality Stroke Does the patient have a stroke diagnosis?: No VTE Prior VTE?: No VTE Risk Level:: Medical - moderate - high VTE Device Contraindication: Treatment Not Indicated VTE Drug Contraindication: N/A - Med Ordered
[2024-05-21 15:12] VITALS: BP 133/60; PULSE 90; RESP 16; TEMP 36.9; O2SAT 99
[2024-05-21 16:08] LABS: Glucose, Whole Blood 222 mg/dL (60-115)
[2024-05-21] MEDS: Atorvastatin Calcium 10 MG TABLET PO (19:50)
[2024-05-21 20:34] LABS: Glucose, Whole Blood 275 mg/dL (60-115)
[2024-05-21 23:54] VITALS: BP 144/71; PULSE 88; RESP 18; TEMP 36.1; O2SAT 98
[2024-05-22] MEDS: Throat Lozenge, Medicated LOZENGE 1 LOZENGE MUCOUS MEM ×2 (03:34→23:37)
--- NOTE | 2024-05-22 03:56 | PC.NURSE ---
Pt c/o sore throat. MD Villa notified of the situation. PRN Throat Lozenge was ordered and given to pt per JAN, pending effectiveness. Will continue to monitor.
[2024-05-22] MEDS: Omeprazole 20 MG CAPSULE.DR PO (06:16)
[2024-05-22 07:26] VITALS: BP 131/66; PULSE 88; RESP 17; TEMP 36.7; O2SAT 99
[2024-05-22 07:45] LABS: Glucose, Whole Blood 153 mg/dL (60-115)
[2024-05-22] MEDS: Empagliflozin 10 MG TABLET PO (08:15)
[2024-05-22] MEDS: SITagliptin Phosphate 100 MG TABLET PO (08:15)
[2024-05-22] MEDS: Fluticasone Propionate Nasal 16 GM SPRAY 1 SPRAY NOSTRIL-B ×2 (08:15→21:07)
[2024-05-22] MEDS: Aspirin Enteric Coated 81 MG TABLET.DR PO (08:15)
[2024-05-22] MEDS: glipiZIDE 10 MG TABLET PO ×2 (08:15→21:06)
--- NOTE | 2024-05-22 09:36 | HO.PM.IMPN ---
Subjective Subjective Date of Service: 05/22/24 Interval History: Being followed for placement. Offers no acute complaints, good pain control both shoulders, doing tdvpy-uh-ahtysg exercises, no acute events overnight. Tolerating diet no nausea, no vomiting, no abdominal pain. Review of Systems All other system are reviewed and are negative Physical Exam Vital Signs: Vital Signs: Last Vital Signs Temp 98.1 F 05/22/24 07:26 Pulse 88 05/22/24 07:26 Resp 17 05/22/24 07:26 BP 131/66 05/22/24 07:26 Pulse Ox 99 05/22/24 07:26 O2 Del Method Room Air 05/22/24 07:26 BMI result Body Mass Index 24.5 Const: Other: Gen: Awake alert, in no acute distress Lungs: clear to auscultation bilaterally Heart: regular rate and rhythm, no murmurs Abd: soft, non-tender, non-distended Ext: No edema/improved range of motion both shoulders. Skin: warm/well-perfused Neuro: alert, no focal weakness Psych: impaired insight Objective Data Active Medications Acetaminophen (Acetaminophen 325 Mg Tablet) 650 mg PO Q4H PRN PRN Reason: headache or pain Last Admin: 05/19/24 20:33 Dose: 650 mg Documented By: SON Acetaminophen/Butalbital/Caffeine (Butalb/Acetamin/Caff 50/325/40 Tablet) 1 tab PO Q4H PRN PRN Reason: Headache Last Admin: 05/21/24 01:40 Dose: 1 tab Documented By: GINETTE Comments: computers down. Amitriptyline HCl (Amitriptyline Hcl 25 Mg Tablet) 25 mg PO BEDTIME [facility] Last Admin: 05/21/24 19:50 Dose: Not Given Documented By: YAHIR Non-Admin Reason: Patient Refused Aspirin (Aspirin Enteric Coated 81 Mg Tablet.) 81 mg PO DAILY [facility] Last Admin: 05/22/24 08:15 Dose: 81 mg Documented By: RUBEN Atorvastatin Calcium (Atorvastatin Calcium 10 Mg Tablet) 10 mg PO BEDTIME [facility] Last Admin: 05/21/24 19:50 Dose: 10 mg Documented By: YAHIR Benzocaine (Throat Lozenge, Medicated Lozenge) 1 lozenge MUCOUS MEM Q2H PRN PRN Reason: Sore Throat Last Admin: 05/22/24 03:34 Dose: 1 lozenge Documented By: YAHIR Empagliflozin (Empagliflozin 10 Mg Tablet) 10 mg PO DAILY [facility] Last Admin: 05/22/24 08:15 Dose: 10 mg Documented By: RUBEN Enoxaparin Sodium (Enoxaparin Sodium 40 Mg/0.4 Ml Syringe) 40 mg SUBCUT Q24H [facility] Last Admin: 05/21/24 18:27 Dose: Not Given Documented By: NERIS Non-Admin Reason: Patient Refused Fluticasone Propionate (Fluticasone Propionate Nasal 16 Gm [place]) 1 spray NOSTRIL-B BID [facility] Last Admin: 05/22/24 08:15 Dose: 1 spray Documented By: RUBEN Glipizide (Glipizide 10 Mg Tablet) 10 mg PO BID [facility] Last Admin: 05/22/24 08:15 Dose: 10 mg Documented By: RUBEN Melatonin (Melatonin 3 Mg Tablet) 3 mg PO BEDTIME PRN PRN Reason: Insomnia Last Admin: 05/17/24 20:18 Dose: 3 mg Documented By: PATY Nitroglycerin (Nitroglycerin 0.4 Mg Tab.Subl) 0.4 mg SUBLINGUAL Q5M PRN PRN Reason: angina Omeprazole (Omeprazole 20 Mg Capsule.Dr) 20 mg PO DAILY@0630 [facility] Last Admin: 05/22/24 06:16 Dose: 20 mg Documented By: YAHIR Sitagliptin Phosphate (Sitagliptin Phosphate 100 Mg Tablet) 100 mg PO DAILY [facility] Last Admin: 05/22/24 08:15 Dose: 100 mg Documented By: RUBEN Sodium Chloride (0.9 % Sodium Chloride Flush 3 Ml Syringe) 3 ml IVFLUSH QSHIFT [facility] Last Admin: 05/22/24 08:15 Dose: Not Given Documented By: RUBEN Non-Admin Reason: No Access Trolamine Salicylate (Trolamine Salicylate 10 % Cream 141 Gm Tube) 1 appl TOPICAL BID PRN; Protocol PRN Reason: both shoulders Last Admin: 05/19/24 20:34 Dose: 1 appl Documented By: SON Labs 05/17/24 09:36 05/17/24 09:36 Labs: Laboratory Results - last 24 hr 05/21/24 05/21/24 05/22/24 15:57 20:10 07:30 POC Glucose 222 H 275 H 153 H Assessment and Plan (1) Cognitive impairment: Status: Acute Plan 88yo F with vascular dementia, diabetes, hypertension, hyperlipidemia, and peptic ulcer disease presented with mechanical fall and found to have left foot fracture awaiting safe placement in ED, admitted to facilitate conservatorship/placement vascular dementia + cognitive impairment. stable, conservatorship pending. MOCA 08/02 DM2 Hba1c 7.7 continue GPZ, empagliflozin, sitagliptin follow blood sugars ,strongly rec to follow diabetic diet. L foot fx fractures > 8wk old, Ortho consulted>boot recommended WBAT/ambulate t.i.d. bilateral shoulder pain/impingement on Aspercreme/Tylenol encourage to do ROM exercises VTE ppx LMWH dispo LTC In my clinical judgment, the patient requires continued inpatient hospitalization for the following reasons: conservatorship/placement Quality Stroke Does the patient have a stroke diagnosis?: No VTE Prior VTE?: No VTE Risk Level:: Medical - moderate - high VTE Device Contraindication: Treatment Not Indicated VTE Drug Contraindication: N/A - Med Ordered
[2024-05-22 15:10] VITALS: BP 131/67; PULSE 88; RESP 18; TEMP 36.9; O2SAT 98
[2024-05-22 20:34] LABS: Glucose, Whole Blood 241 mg/dL (60-115)
[2024-05-22] MEDS: Trolamine Salicylate 10 % Cream 141 gm Tube 1 APPL TOPICAL (21:04)
[2024-05-22] MEDS: Atorvastatin Calcium 10 MG TABLET PO (21:06)
[2024-05-22 23:22] VITALS: BP 164/74; PULSE 85; RESP 18; TEMP 36.2; O2SAT 98
[2024-05-23] MEDS: Omeprazole 20 MG CAPSULE.DR PO (05:53)
[2024-05-23 07:40] LABS: Glucose, Whole Blood 126 mg/dL (60-115)
[2024-05-23] MEDS: SITagliptin Phosphate 100 MG TABLET PO (07:54)
[2024-05-23] MEDS: glipiZIDE 10 MG TABLET PO ×2 (07:54→21:09)
[2024-05-23] MEDS: Empagliflozin 10 MG TABLET PO (07:54)
[2024-05-23] MEDS: Aspirin Enteric Coated 81 MG TABLET.DR PO (07:54)
[2024-05-23] MEDS: Fluticasone Propionate Nasal 16 GM SPRAY 1 SPRAY NOSTRIL-B ×2 (07:55→21:10)
[2024-05-23 08:00] VITALS: BP 142/64; PULSE 83; RESP 14; TEMP 36.6; O2SAT 98
--- NOTE | 2024-05-23 09:02 | P.PNIM_ITS ---
Subjective Subjective Date of Service: 05/23/24 Interval History: Being followed for placement. Tolerating diet no other acute issues, no complain of pain, no acute events overnight. Review of Systems All other systems are reviewed and are negative. Physical Exam 2 Vital Signs: Vital Signs: Last Vital Signs Temp 97.9 F 05/23/24 08:00 Pulse 83 05/23/24 08:00 Resp 14 05/23/24 08:00 BP 142/64 H 05/23/24 08:00 Pulse Ox 98 05/23/24 08:00 O2 Del Method Room Air 05/23/24 08:00 BMI result Body Mass Index 24.5 Const: Other: Gen: Awake alert, in no acute distress Lungs: clear to auscultation bilaterally Heart: regular rate and rhythm, no murmurs Abd: soft, non-tender, non-distended Ext: No edema/improved range of motion both shoulders. Skin: warm/well-perfused Neuro: alert, no focal weakness Psych: impaired insight. Objective Data Active Medications Acetaminophen (Acetaminophen 325 Mg Tablet) 650 mg PO Q4H PRN PRN Reason: headache or pain Last Admin: 05/19/24 20:33 Dose: 650 mg Documented By: SON Acetaminophen/Butalbital/Caffeine (Butalb/Acetamin/Caff 50/325/40 Tablet) 1 tab PO Q4H PRN PRN Reason: Headache Last Admin: 05/21/24 01:40 Dose: 1 tab Documented By: GINETTE Comments: computers down. Amitriptyline HCl (Amitriptyline Hcl 25 Mg Tablet) 25 mg PO BEDTIME [facility] Last Admin: 05/22/24 21:07 Dose: Not Given Documented By: YAHIR Non-Admin Reason: Patient Refused Aspirin (Aspirin Enteric Coated 81 Mg Tablet.) 81 mg PO DAILY [facility] Last Admin: 05/23/24 07:54 Dose: 81 mg Documented By: RUBEN Atorvastatin Calcium (Atorvastatin Calcium 10 Mg Tablet) 10 mg PO BEDTIME [facility] Last Admin: 05/22/24 21:06 Dose: 10 mg Documented By: YAHIR Benzocaine (Throat Lozenge, Medicated Lozenge) 1 lozenge MUCOUS MEM Q2H PRN PRN Reason: Sore Throat Last Admin: 05/22/24 23:37 Dose: 1 lozenge Documented By: YAHIR Empagliflozin (Empagliflozin 10 Mg Tablet) 10 mg PO DAILY [facility] Last Admin: 05/23/24 07:54 Dose: 10 mg Documented By: RUBEN Enoxaparin Sodium (Enoxaparin Sodium 40 Mg/0.4 Ml Syringe) 40 mg SUBCUT Q24H [facility] Last Admin: 05/22/24 18:10 Dose: Not Given Documented By: RUBEN Non-Admin Reason: Patient Refused Fluticasone Propionate (Fluticasone Propionate Nasal 16 Gm [place]) 1 spray NOSTRIL-B BID [facility] Last Admin: 05/23/24 07:55 Dose: 1 spray Documented By: RUBEN Glipizide (Glipizide 10 Mg Tablet) 10 mg PO BID [facility] Last Admin: 05/23/24 07:54 Dose: 10 mg Documented By: RUBEN Melatonin (Melatonin 3 Mg Tablet) 3 mg PO BEDTIME PRN PRN Reason: Insomnia Last Admin: 05/17/24 20:18 Dose: 3 mg Documented By: PATY Nitroglycerin (Nitroglycerin 0.4 Mg Tab.Subl) 0.4 mg SUBLINGUAL Q5M PRN PRN Reason: angina Omeprazole (Omeprazole 20 Mg Capsule.Dr) 20 mg PO DAILY@0630 [facility] Last Admin: 05/23/24 05:53 Dose: 20 mg Documented By: YAHIR Sitagliptin Phosphate (Sitagliptin Phosphate 100 Mg Tablet) 100 mg PO DAILY [facility] Last Admin: 05/23/24 07:54 Dose: 100 mg Documented By: RUBEN Sodium Chloride (0.9 % Sodium Chloride Flush 3 Ml Syringe) 3 ml IVFLUSH QSHIFT [facility] Last Admin: 05/23/24 07:53 Dose: Not Given Documented By: RUBEN Non-Admin Reason: No Access Trolamine Salicylate (Trolamine Salicylate 10 % Cream 141 Gm Tube) 1 appl TOPICAL BID PRN; Protocol PRN Reason: both shoulders Last Admin: 05/22/24 21:04 Dose: 1 appl Documented By: YAHIR Labs 05/17/24 09:36 05/17/24 09:36 Labs: Laboratory Results - last 24 hr 05/22/24 05/23/24 20:25 07:36 POC Glucose 241 H 126 H Assessment and Plan (1) Cognitive impairment: Status: Acute (2) Glaucoma of both eyes: Status: Acute Plan 88yo F with vascular dementia, diabetes, hypertension, hyperlipidemia, and peptic ulcer disease presented with mechanical fall and found to have left foot fracture awaiting safe placement in ED, admitted to facilitate conservatorship/placement vascular dementia + cognitive impairment. stable, conservatorship pending. MOCA 08/02 DM2 Hba1c 7.7 continue GPZ, empagliflozin, sitagliptin Few high blood sugar readings, follow blood sugars ,strongly rec to follow diabetic diet. L foot fx fractures > 8wk old, Ortho consulted>boot recommended WBAT/ambulate t.i.d. bilateral shoulder pain/impingement on Aspercreme/Tylenol encourage to do ROM exercises VTE ppx LMWH dispo LTC In my clinical judgment, the patient requires continued inpatient hospitalization for the following reasons: conservatorship/placement Quality Stroke Does the patient have a stroke diagnosis?: No VTE Prior VTE?: No VTE Risk Level:: Medical - moderate - high VTE Device Contraindication: Treatment Not Indicated VTE Drug Contraindication: N/A - Med Ordered
[2024-05-23 16:00] VITALS: BP 128/60; PULSE 84; RESP 12; TEMP 36.8; O2SAT 98
[2024-05-23 20:48] LABS: Glucose, Whole Blood 154 mg/dL (60-115)
[2024-05-23] MEDS: Atorvastatin Calcium 10 MG TABLET PO (21:09)
[2024-05-23] MEDS: Melatonin 3 MG TABLET PO (21:09)
[2024-05-23 22:35] VITALS: BP 137/63; PULSE 79; RESP 16; TEMP 36.3; O2SAT 97
--- NOTE | 2024-05-23 22:53 | PC.NURSE ---
Assumed care of patient at 19:00. VSS in evening. 22:32 pt ringing, expert medical writer responded to call [facility] and pt stated It feels like my hearts beating fast . Vitals obtained 22:35, stable. HR auscultated and correlates with machine. +radial and pedal pulses are equal. Pt denies chest pain or heaviness, denies dizziness, sob, n/v, and numbness/tingling. Covering Dr. Villa notified, no interventions at this time. Pt requested and was given a warm blanket. Pt resting in bed with even and unlabored breathing. No distress noted. Bed alarm on and in-room camera continues. Call kilgore within reach, rings to make needs known. Safety measures in place.
[2024-05-23 22:54] VITALS: BP 147/69; PULSE 84; RESP 18; TEMP 36.1; O2SAT 98
[2024-05-24] MEDS: Butalb/Acetamin/Caff 50/325/40 TABLET 1 TAB PO (04:09)
[2024-05-24 05:09] VITALS: RESP 18
[2024-05-24] MEDS: Omeprazole 20 MG CAPSULE.DR PO (05:27)
[2024-05-24 07:14] VITALS: BP 129/60; PULSE 78; RESP 20; TEMP 36.6; O2SAT 97
[2024-05-24 07:36] LABS: Glucose, Whole Blood 114 mg/dL (60-115)
[2024-05-24] MEDS: Aspirin Enteric Coated 81 MG TABLET.DR PO (09:15)
[2024-05-24] MEDS: Empagliflozin 10 MG TABLET PO (09:15)
[2024-05-24] MEDS: glipiZIDE 10 MG TABLET PO ×2 (09:15→20:30)
[2024-05-24] MEDS: Fluticasone Propionate Nasal 16 GM SPRAY 1 SPRAY NOSTRIL-B ×2 (09:15→20:32)
[2024-05-24] MEDS: SITagliptin Phosphate 100 MG TABLET PO (09:15)
--- NOTE | 2024-05-24 09:22 | HO.PM.IMPN ---
Subjective Subjective Date of Service: 05/24/24 Interval History: Being followed for placement. Offers no acute complaints, improving right shoulder range of motion, good pain control, tolerating diet, no nausea, no vomiting, no abdominal pain, no diarrhea, no other acute issues overnight. Review of Systems All other system are reviewed and are negative. Physical Exam Vital Signs: Vital Signs: Last Vital Signs Temp 97.8 F 05/24/24 07:14 Pulse 78 05/24/24 07:14 Resp 20 05/24/24 07:14 BP 129/60 05/24/24 07:14 Pulse Ox 97 05/24/24 07:14 O2 Del Method Room Air 05/24/24 07:14 BMI result Body Mass Index 24.5 Const: Other: Gen: Awake alert, in no acute distress Lungs: clear to auscultation bilaterally Heart: regular rate and rhythm, no murmurs Abd: soft, non-tender, non-distended Ext: No edema/left shoulder improved range of motion, right shoulder no warmth, no redness, range of motion improving gradually, less pain with activity. Skin: warm/well-perfused Neuro: alert, no focal weakness Psych: impaired insight Objective Data Active Medications Acetaminophen (Acetaminophen 325 Mg Tablet) 650 mg PO Q4H PRN PRN Reason: headache or pain Last Admin: 05/19/24 20:33 Dose: 650 mg Documented By: SON Acetaminophen/Butalbital/Caffeine (Butalb/Acetamin/Caff 50/325/40 Tablet) 1 tab PO Q4H PRN PRN Reason: Headache Last Admin: 05/24/24 04:09 Dose: 1 tab Documented By: LORA Amitriptyline HCl (Amitriptyline Hcl 25 Mg Tablet) 25 mg PO BEDTIME [facility] Last Admin: 05/23/24 21:11 Dose: Not Given Documented By: LORA Non-Admin Reason: Patient Refused Aspirin (Aspirin Enteric Coated 81 Mg Tablet.) 81 mg PO DAILY [facility] Last Admin: 05/24/24 09:15 Dose: 81 mg Documented By: NERIS Atorvastatin Calcium (Atorvastatin Calcium 10 Mg Tablet) 10 mg PO BEDTIME [facility] Last Admin: 05/23/24 21:09 Dose: 10 mg Documented By: LORA Benzocaine (Throat Lozenge, Medicated Lozenge) 1 lozenge MUCOUS MEM Q2H PRN PRN Reason: Sore Throat Last Admin: 05/22/24 23:37 Dose: 1 lozenge Documented By: YAHIR Empagliflozin (Empagliflozin 10 Mg Tablet) 10 mg PO DAILY [facility] Last Admin: 05/24/24 09:15 Dose: 10 mg Documented By: NERIS Enoxaparin Sodium (Enoxaparin Sodium 40 Mg/0.4 Ml Syringe) 40 mg SUBCUT Q24H [facility] Last Admin: 05/23/24 18:06 Dose: Not Given Documented By: RUBEN Non-Admin Reason: Patient Refused Fluticasone Propionate (Fluticasone Propionate Nasal 16 Gm [place]) 1 spray NOSTRIL-B BID [facility] Last Admin: 05/24/24 09:15 Dose: 1 spray Documented By: NERIS Glipizide (Glipizide 10 Mg Tablet) 10 mg PO BID [facility] Last Admin: 05/24/24 09:15 Dose: 10 mg Documented By: NERIS Melatonin (Melatonin 3 Mg Tablet) 3 mg PO BEDTIME PRN PRN Reason: Insomnia Last Admin: 05/23/24 21:09 Dose: 3 mg Documented By: LORA Nitroglycerin (Nitroglycerin 0.4 Mg Tab.Subl) 0.4 mg SUBLINGUAL Q5M PRN PRN Reason: angina Omeprazole (Omeprazole 20 Mg Capsule.Dr) 20 mg PO DAILY@0630 [facility] Last Admin: 05/24/24 05:27 Dose: 20 mg Documented By: LORA Sitagliptin Phosphate (Sitagliptin Phosphate 100 Mg Tablet) 100 mg PO DAILY [facility] Last Admin: 05/24/24 09:15 Dose: 100 mg Documented By: NERIS Sodium Chloride (0.9 % Sodium Chloride Flush 3 Ml Syringe) 3 ml IVFLUSH QSHIFT [facility] Last Admin: 05/24/24 09:12 Dose: Not Given Documented By: NERIS Non-Admin Reason: No Access Trolamine Salicylate (Trolamine Salicylate 10 % Cream 141 Gm Tube) 1 appl TOPICAL BID PRN; Protocol PRN Reason: both shoulders Last Admin: 05/22/24 21:04 Dose: 1 appl Documented By: YAHIR Labs 05/17/24 09:36 05/17/24 09:36 Labs: Laboratory Results - last 24 hr 05/23/24 05/24/24 20:16 07:22 POC Glucose 154 H 114 Assessment and Plan (1) Cognitive impairment: Status: Acute (2) Glaucoma of both eyes: Status: Acute Plan 88yo F with vascular dementia, diabetes, hypertension, hyperlipidemia, and peptic ulcer disease presented with mechanical fall and found to have left foot fracture awaiting safe placement in ED, admitted to facilitate conservatorship/placement vascular dementia + cognitive impairment. stable, conservatorship pending. MOCA 08/02 DM2 Hba1c 7.7 continue GPZ, empagliflozin, sitagliptin Blood sugar improving since place on diabetic diet , follow blood sugars ,strongly rec to follow diabetic diet. L foot fx fractures > 8wk old, Ortho consulted>boot recommended WBAT/ambulate t.i.d. bilateral shoulder pain/impingement on Aspercreme/Tylenol encourage to do ROM exercises VTE ppx LMWH dispo LTC In my clinical judgment, the patient requires continued inpatient hospitalization for the following reasons: conservatorship/placement Quality Stroke Does the patient have a stroke diagnosis?: No VTE Prior VTE?: No VTE Risk Level:: Medical - moderate - high VTE Device Contraindication: Treatment Not Indicated VTE Drug Contraindication: N/A - Med Ordered
[2024-05-24] MEDS: Throat Lozenge, Medicated LOZENGE 1 LOZENGE MUCOUS MEM ×2 (09:40→18:24)
--- NOTE | 2024-05-24 11:19 | MHC.CM.PN ---
PT AWAITING CONSERVATOR AND LTC PLACEMENT THERE ARE NOT BED OFFERS, HOWEVER THERE ARE A FEW FACILITIES FOLLOWING: MARIAH DENNISON AT [facility], AND [facility]
[2024-05-24 11:42] LABS: Glucose, Whole Blood 160 mg/dL (60-115)
[2024-05-24 15:31] VITALS: BP 113/61; PULSE 86; RESP 18; TEMP 36.7; O2SAT 97
[2024-05-24] MEDS: Atorvastatin Calcium 10 MG TABLET PO (20:31)
[2024-05-24] MEDS: Melatonin 3 MG TABLET PO (20:31)
[2024-05-24 20:32] VITALS: BP 149/72; PULSE 95; RESP 18; TEMP 37.4; O2SAT 97
[2024-05-24 21:31] VITALS: RESP 18
[2024-05-25 02:19] VITALS: RESP 16
[2024-05-25 04:07] VITALS: BP 154/74; PULSE 95; RESP 16; TEMP 36.9; O2SAT 98
[2024-05-25] MEDS: Omeprazole 20 MG CAPSULE.DR PO (05:37)
[2024-05-25] MEDS: Throat Lozenge, Medicated LOZENGE 1 LOZENGE MUCOUS MEM ×3 (05:49→19:21)
[2024-05-25 07:13] VITALS: BP 125/58; PULSE 94; RESP 16; TEMP 36.6; O2SAT 95
[2024-05-25 07:34] LABS: Glucose, Whole Blood 123 mg/dL (60-115)
[2024-05-25] MEDS: Fluticasone Propionate Nasal 16 GM SPRAY 1 SPRAY NOSTRIL-B (08:35)
[2024-05-25] MEDS: Butalb/Acetamin/Caff 50/325/40 TABLET 1 TAB PO ×2 (08:35→19:20)
[2024-05-25] MEDS: Aspirin Enteric Coated 81 MG TABLET.DR PO (08:35)
[2024-05-25] MEDS: Empagliflozin 10 MG TABLET PO (08:35)
[2024-05-25] MEDS: SITagliptin Phosphate 100 MG TABLET PO (08:35)
[2024-05-25] MEDS: glipiZIDE 10 MG TABLET PO ×2 (08:35→19:21)
--- NOTE | 2024-05-25 08:43 | HO.PM.IMPN ---
Subjective Subjective Date of Service: 05/25/24 Interval History: Being followed for placement. No complain of shoulder pain, tolerating diet, no nausea, no vomiting, no abdominal pain, no diarrhea, no behavioral issues, no acute events overnight. Review of Systems All other system are reviewed and are negative. Physical Exam Vital Signs: Vital Signs: Last Vital Signs Temp 97.9 F 05/25/24 07:13 Pulse 94 05/25/24 07:13 Resp 16 05/25/24 07:13 BP 125/58 L 05/25/24 07:13 Pulse Ox 95 05/25/24 07:13 O2 Del Method Room Air 05/25/24 07:13 BMI result Body Mass Index 24.5 Const: Other: Gen: Awake alert, in no acute distress Lungs: clear to auscultation bilaterally Heart: regular rate and rhythm, no murmurs Abd: soft, non-tender, non-distended Ext: No edema/improving bilateral shoulder range of motion. Skin: warm/well-perfused Neuro: alert, no focal weakness Psych: impaired insight Objective Data Active Medications Acetaminophen (Acetaminophen 325 Mg Tablet) 650 mg PO Q4H PRN PRN Reason: headache or pain Last Admin: 05/19/24 20:33 Dose: 650 mg Documented By: SON Acetaminophen/Butalbital/Caffeine (Butalb/Acetamin/Caff 50/325/40 Tablet) 1 tab PO Q4H PRN PRN Reason: Headache Last Admin: 05/25/24 08:35 Dose: 1 tab Documented By: NERIS Amitriptyline HCl (Amitriptyline Hcl 25 Mg Tablet) 25 mg PO BEDTIME [facility] Last Admin: 05/24/24 20:32 Dose: Not Given Documented By: LORA Non-Admin Reason: Patient Refused Aspirin (Aspirin Enteric Coated 81 Mg Tablet.) 81 mg PO DAILY [facility] Last Admin: 05/25/24 08:35 Dose: 81 mg Documented By: NERIS Atorvastatin Calcium (Atorvastatin Calcium 10 Mg Tablet) 10 mg PO BEDTIME [facility] Last Admin: 05/24/24 20:31 Dose: 10 mg Documented By: LORA Benzocaine (Throat Lozenge, Medicated Lozenge) 1 lozenge MUCOUS MEM Q2H PRN PRN Reason: Sore Throat Last Admin: 05/25/24 05:49 Dose: 1 lozenge Documented By: LORA Empagliflozin (Empagliflozin 10 Mg Tablet) 10 mg PO DAILY [facility] Last Admin: 05/25/24 08:35 Dose: 10 mg Documented By: NERIS Enoxaparin Sodium (Enoxaparin Sodium 40 Mg/0.4 Ml Syringe) 40 mg SUBCUT Q24H [facility] Last Admin: 05/24/24 18:24 Dose: Not Given Documented By: NERIS Non-Admin Reason: Patient Refused Fluticasone Propionate (Fluticasone Propionate Nasal 16 Gm [place]) 1 spray NOSTRIL-B BID [facility] Last Admin: 05/25/24 08:35 Dose: 1 spray Documented By: NERIS Glipizide (Glipizide 10 Mg Tablet) 10 mg PO BID [facility] Last Admin: 05/25/24 08:35 Dose: 10 mg Documented By: NERIS Melatonin (Melatonin 3 Mg Tablet) 3 mg PO BEDTIME PRN PRN Reason: Insomnia Last Admin: 05/24/24 20:31 Dose: 3 mg Documented By: LORA Nitroglycerin (Nitroglycerin 0.4 Mg Tab.Subl) 0.4 mg SUBLINGUAL Q5M PRN PRN Reason: angina Omeprazole (Omeprazole 20 Mg Capsule.Dr) 20 mg PO DAILY@0630 [facility] Last Admin: 05/25/24 05:37 Dose: 20 mg Documented By: LORA Sitagliptin Phosphate (Sitagliptin Phosphate 100 Mg Tablet) 100 mg PO DAILY [facility] Last Admin: 05/25/24 08:35 Dose: 100 mg Documented By: NERIS Sodium Chloride (0.9 % Sodium Chloride Flush 3 Ml Syringe) 3 ml IVFLUSH QSHIFT [facility] Last Admin: 05/25/24 08:35 Dose: Not Given Documented By: NERIS Non-Admin Reason: No Access Trolamine Salicylate (Trolamine Salicylate 10 % Cream 141 Gm Tube) 1 appl TOPICAL BID PRN; Protocol PRN Reason: both shoulders Last Admin: 05/22/24 21:04 Dose: 1 appl Documented By: YAHIR Labs 05/17/24 09:36 05/17/24 09:36 Labs: Laboratory Results - last 24 hr 05/24/24 05/25/24 11:37 07:18 POC Glucose 160 H 123 H Assessment and Plan (1) Cognitive impairment: Status: Acute (2) Glaucoma of both eyes: Status: Acute Plan 88yo F with vascular dementia, diabetes, hypertension, hyperlipidemia, and peptic ulcer disease presented with mechanical fall and found to have left foot fracture awaiting safe placement in ED, admitted to facilitate conservatorship/placement vascular dementia + cognitive impairment. stable, conservatorship pending. MOCA 08/02 DM2 Hba1c 7.7 continue GPZ, empagliflozin, sitagliptin Blood sugar improving since place on diabetic diet , follow blood sugars ,strongly rec to follow diabetic diet. L foot fx fractures > 8wk old, Ortho consulted>boot recommended WBAT/ambulate t.i.d. bilateral shoulder pain/likely due to osteoarthritis. on Aspercreme/Tylenol Evaluated by OT, encourage to do ROM exercises. VTE ppx LMWH dispo LTC In my clinical judgment, the patient requires continued inpatient hospitalization for the following reasons: conservatorship/placement Quality Stroke Does the patient have a stroke diagnosis?: No VTE Prior VTE?: No VTE Risk Level:: Medical - moderate - high VTE Device Contraindication: Treatment Not Indicated VTE Drug Contraindication: N/A - Med Ordered
--- NOTE | 2024-05-25 12:33 | P.DS_ITS ---
DS: Providers Provider Date of Service: 05/25/24 Date of admission: 03/24/24 15:20 Date of discharge: 05/25/24 Primary care physician: Unknown Physician Consults: 05/04/24 14:01 Consult to Orthopedics Routine Consulting Provider: [facility] Reason for consultation: foot fracture from 8 wk ago, needs follow-up [pt is long-term placement] Attending physician on discharge: Arnel Bowman Discharging clinician: Arnel Bowman DS: Diagnosis Discharge Diagnosis (1) Cognitive impairment: Status: Acute (2) Glaucoma of both eyes: Status: Acute Physical Exam Vital Signs: Vital Signs: Last Vital Signs Temp 97.9 F 05/25/24 07:13 Pulse 94 05/25/24 07:13 Resp 16 05/25/24 07:13 BP 125/58 L 05/25/24 07:13 Pulse Ox 95 05/25/24 07:13 O2 Del Method Room Air 05/25/24 07:13 BMI result Body Mass Index 24.5 DS: Data Data Completed and Pending Labs on day of discharge: Laboratory Results - last 24 hr 05/25/24 07:18 POC Glucose 123 H Discharge Plan Discharge Referrals: Physician,Unknown J [Primary Care Provider] - 1 Week Discharge Medications: No Action acetaminophen 325 mg tablet 325 mg PO Q6H PRN (Reason: pain) atorvastatin 10 mg tablet 10 mg PO DAILY glipizide 10 mg tablet 10 mg PO BID melatonin 3 mg tablet 3 mg PO BEDTIME PRN (Reason: Insomnia) aspirin 81 mg tablet,delayed release (DR/EC) 81 mg PO DAILY amitriptyline 25 mg tablet 25 mg PO BEDTIME Januvia 100 mg tablet 100 mg PO DAILY (DME) Dexcom G7 Sensor Device MISCELLANEOUS Q2W Jardiance 10 mg tablet 10 mg PO DAILY nitroglycerin 0.4 mg tablet, sublingual 0.4 mg sublingual Q5M PRN (Reason: angina) omeprazole 20 mg capsule,delayed release(DR/EC) 20 mg PO DAILY Print Language: Stateless
[2024-05-25 15:48] VITALS: BP 124/72; PULSE 95; RESP 18; TEMP 36.9; O2SAT 98
[2024-05-25] MEDS: Atorvastatin Calcium 10 MG TABLET PO (19:21)
[2024-05-25] MEDS: Melatonin 3 MG TABLET PO (19:21)
[2024-05-25 20:37] VITALS: BP 133/66; PULSE 109; RESP 18; TEMP 37.7; O2SAT 96
[2024-05-26 01:05] VITALS: RESP 16
[2024-05-26] MEDS: Omeprazole 20 MG CAPSULE.DR PO (05:36)
[2024-05-26 07:16] VITALS: BP 140/90; PULSE 85; RESP 16; TEMP 36.1; O2SAT 96
[2024-05-26 07:25] LABS: Glucose, Whole Blood 139 mg/dL (60-115)
[2024-05-26] MEDS: Empagliflozin 10 MG TABLET PO (08:33)
[2024-05-26] MEDS: glipiZIDE 10 MG TABLET PO ×2 (08:33→20:11)
[2024-05-26] MEDS: SITagliptin Phosphate 100 MG TABLET PO (08:33)
[2024-05-26] MEDS: Aspirin Enteric Coated 81 MG TABLET.DR PO (08:33)
[2024-05-26] MEDS: Fluticasone Propionate Nasal 16 GM SPRAY 1 SPRAY NOSTRIL-B (08:34)
[2024-05-26 11:14] LABS: Glucose, Whole Blood 204 mg/dL (60-115)
--- NOTE | 2024-05-26 15:11 | MHC.CM.PN ---
PT AWAITING CONSERVATORSHIP HEARING 06/01, [facility] PENDING AND WILL NEED LTC PLACEMENT. CM WILL CONTINUE TO FOLLOW FOR ANY CHANGE TO DC PLAN
[2024-05-26 15:28] VITALS: BP 128/59; PULSE 86; RESP 18; TEMP 36.7; O2SAT 96
--- NOTE | 2024-05-26 16:52 | HO.PM.IMPN ---
Subjective Subjective Date of Service: 05/26/24 Interval History: Being followed for placement Review of Systems No complain of shoulder pain, tolerating diet, no nausea, no vomiting, no abdominal pain, no diarrhea, no behavioral issues, no acute events overnight. Physical Exam Vital Signs: Vital Signs: Last Vital Signs Temp 98.1 F 05/26/24 15:28 Pulse 86 05/26/24 15:28 Resp 18 05/26/24 15:28 BP 128/59 L 05/26/24 15:28 Pulse Ox 96 05/26/24 15:28 O2 Del Method Room Air 05/26/24 15:28 BMI result Body Mass Index 24.5 Lungs: air entry fair Heart: regular rate and rhythm. Abd: soft, non-tender, non-distended Ext: No edema/improving bilateral shoulder range of motion. Skin: warm/well-perfused Neuro: alert, no focal weakness Psych: impaired insight Objective Data Active Medications Acetaminophen (Acetaminophen 325 Mg Tablet) 650 mg PO Q4H PRN PRN Reason: headache or pain Last Admin: 05/19/24 20:33 Dose: 650 mg Documented By: SON Acetaminophen/Butalbital/Caffeine (Butalb/Acetamin/Caff 50/325/40 Tablet) 1 tab PO Q4H PRN PRN Reason: Headache Last Admin: 05/25/24 19:20 Dose: 1 tab Documented By: LORA Amitriptyline HCl (Amitriptyline Hcl 25 Mg Tablet) 25 mg PO BEDTIME [facility] Last Admin: 05/25/24 20:32 Dose: Not Given Documented By: LORA Non-Admin Reason: Patient Refused Aspirin (Aspirin Enteric Coated 81 Mg Tablet.) 81 mg PO DAILY [facility] Last Admin: 05/26/24 08:33 Dose: 81 mg Documented By: JIMY Atorvastatin Calcium (Atorvastatin Calcium 10 Mg Tablet) 10 mg PO BEDTIME [facility] Last Admin: 05/25/24 19:21 Dose: 10 mg Documented By: LORA Benzocaine (Throat Lozenge, Medicated Lozenge) 1 lozenge MUCOUS MEM Q2H PRN PRN Reason: Sore Throat Last Admin: 05/25/24 19:21 Dose: 1 lozenge Documented By: LORA Empagliflozin (Empagliflozin 10 Mg Tablet) 10 mg PO DAILY [facility] Last Admin: 05/26/24 08:33 Dose: 10 mg Documented By: JIMY Enoxaparin Sodium (Enoxaparin Sodium 40 Mg/0.4 Ml Syringe) 40 mg SUBCUT Q24H [facility] Last Admin: 05/25/24 17:57 Dose: Not Given Documented By: NERIS Non-Admin Reason: Patient Refused Fluticasone Propionate (Fluticasone Propionate Nasal 16 Gm [place]) 1 spray NOSTRIL-B BID [facility] Last Admin: 05/26/24 08:34 Dose: 1 spray Documented By: JIMY Glipizide (Glipizide 10 Mg Tablet) 10 mg PO BID [facility] Last Admin: 05/26/24 08:33 Dose: 10 mg Documented By: JIMY Melatonin (Melatonin 3 Mg Tablet) 3 mg PO BEDTIME PRN PRN Reason: Insomnia Last Admin: 05/25/24 19:21 Dose: 3 mg Documented By: LORA Nitroglycerin (Nitroglycerin 0.4 Mg Tab.Subl) 0.4 mg SUBLINGUAL Q5M PRN PRN Reason: angina Omeprazole (Omeprazole 20 Mg Capsule.Dr) 20 mg PO DAILY@0630 [facility] Last Admin: 05/26/24 05:36 Dose: 20 mg Documented By: LORA Sitagliptin Phosphate (Sitagliptin Phosphate 100 Mg Tablet) 100 mg PO DAILY [facility] Last Admin: 05/26/24 08:33 Dose: 100 mg Documented By: JIMY Sodium Chloride (0.9 % Sodium Chloride Flush 3 Ml Syringe) 3 ml IVFLUSH QSHIFT [facility] Last Admin: 05/26/24 08:34 Dose: Not Given Documented By: JIMY Non-Admin Reason: No Access Trolamine Salicylate (Trolamine Salicylate 10 % Cream 141 Gm Tube) 1 appl TOPICAL BID PRN; Protocol PRN Reason: both shoulders Last Admin: 05/22/24 21:04 Dose: 1 appl Documented By: YAHIR Labs 05/17/24 09:36 05/17/24 09:36 Labs: Laboratory Results - last 24 hr 05/26/24 05/26/24 07:14 11:11 POC Glucose 139 H 204 H Assessment and Plan (1) Cognitive impairment: Status: Acute (2) Glaucoma of both eyes: Status: Acute Plan 88yo F with vascular dementia, diabetes, hypertension, hyperlipidemia, and peptic ulcer disease presented with mechanical fall and found to have left foot fracture awaiting safe placement in ED, admitted to facilitate conservatorship/placement vascular dementia + cognitive impairment. stable, conservatorship pending. MOCA 08/02 DM2 Hba1c 7.7 continue GPZ, empagliflozin, sitagliptin Blood sugar improving since place on diabetic diet , follow blood sugars ,strongly rec to follow diabetic diet. L foot fx fractures > 8wk old, Ortho consulted>boot recommended WBAT/ambulate t.i.d. bilateral shoulder pain/likely due to osteoarthritis. on Aspercreme/Tylenol Evaluated by OT, encourage to do ROM exercises. VTE ppx LMWH dispo LTC In my clinical judgment, the patient requires continued inpatient hospitalization for the following reasons: conservatorship/placement Quality Stroke Does the patient have a stroke diagnosis?: No VTE Prior VTE?: No VTE Risk Level:: Medical - moderate - high VTE Device Contraindication: Treatment Not Indicated VTE Drug Contraindication: N/A - Med Ordered
[2024-05-26] MEDS: Melatonin 3 MG TABLET PO (20:12)
[2024-05-26] MEDS: Atorvastatin Calcium 10 MG TABLET PO (20:12)
[2024-05-26] MEDS: Butalb/Acetamin/Caff 50/325/40 TABLET 1 TAB PO (20:14)
[2024-05-26] MEDS: Throat Lozenge, Medicated LOZENGE 1 LOZENGE MUCOUS MEM (20:15)
[2024-05-26 20:23] VITALS: BP 129/64; PULSE 95; RESP 16; TEMP 36.5; O2SAT 97
[2024-05-26 21:12] VITALS: RESP 18
[2024-05-27] VITALS (8 sets, daily range): BP systolic 117–158; BP diastolic 68–82; PULSE 79–96; RESP 14–18; TEMP 36.3–36.8; O2SAT 92–98
[2024-05-27] MEDS: Omeprazole 20 MG CAPSULE.DR PO (06:24)
[2024-05-27 07:27] LABS: Glucose, Whole Blood 156 mg/dL (60-115)
[2024-05-27] MEDS: glipiZIDE 10 MG TABLET PO ×2 (08:05→20:30)
[2024-05-27] MEDS: SITagliptin Phosphate 100 MG TABLET PO (08:05)
[2024-05-27] MEDS: Fluticasone Propionate Nasal 16 GM SPRAY 1 SPRAY NOSTRIL-B ×2 (08:05→20:30)
[2024-05-27] MEDS: Aspirin Enteric Coated 81 MG TABLET.DR PO (08:05)
[2024-05-27] MEDS: Empagliflozin 10 MG TABLET PO (08:05)
[2024-05-27 11:51] LABS: Glucose, Whole Blood 199 mg/dL (60-115)
--- NOTE | 2024-05-27 13:27 | P.PNIM_ITS ---
Subjective Subjective Date of Service: 05/27/24 Interval History: Being followed for placement Review of Systems No complain of shoulder pain, tolerating diet, no nausea, no vomiting, no abdominal pain, no diarrhea, no behavioral issues. Physical Exam 2 Vital Signs: Vital Signs: Last Vital Signs Temp 97.9 F 05/27/24 11:58 Pulse 88 05/27/24 11:58 Resp 14 05/27/24 11:58 BP 122/82 05/27/24 11:58 Pulse Ox 97 05/27/24 11:58 O2 Del Method Room Air 05/27/24 11:58 BMI result Body Mass Index 24.5 Lungs: air entry fair Heart: regular rate and rhythm. Abd: soft, non-tender, non-distended Ext: No edema/improving bilateral shoulder range of motion. Skin: warm/well-perfused Neuro: alert, no focal weakness Psych: impaired insight Objective Data Active Medications Acetaminophen (Acetaminophen 325 Mg Tablet) 650 mg PO Q4H PRN PRN Reason: headache or pain Last Admin: 05/19/24 20:33 Dose: 650 mg Documented By: SON Acetaminophen/Butalbital/Caffeine (Butalb/Acetamin/Caff 50/325/40 Tablet) 1 tab PO Q4H PRN PRN Reason: Headache Last Admin: 05/26/24 20:14 Dose: 1 tab Documented By: LORA Amitriptyline HCl (Amitriptyline Hcl 25 Mg Tablet) 25 mg PO BEDTIME [facility] Last Admin: 05/26/24 20:23 Dose: Not Given Documented By: LORA Non-Admin Reason: Patient Refused Aspirin (Aspirin Enteric Coated 81 Mg Tablet.) 81 mg PO DAILY [facility] Last Admin: 05/27/24 08:05 Dose: 81 mg Documented By: JIMY Atorvastatin Calcium (Atorvastatin Calcium 10 Mg Tablet) 10 mg PO BEDTIME [facility] Last Admin: 05/26/24 20:12 Dose: 10 mg Documented By: LORA Benzocaine (Throat Lozenge, Medicated Lozenge) 1 lozenge MUCOUS MEM Q2H PRN PRN Reason: Sore Throat Last Admin: 05/26/24 20:15 Dose: 1 lozenge Documented By: LORA Empagliflozin (Empagliflozin 10 Mg Tablet) 10 mg PO DAILY [facility] Last Admin: 05/27/24 08:05 Dose: 10 mg Documented By: JIMY Enoxaparin Sodium (Enoxaparin Sodium 40 Mg/0.4 Ml Syringe) 40 mg SUBCUT Q24H [facility] Last Admin: 05/26/24 17:07 Dose: Not Given Documented By: JIMY Non-Admin Reason: Patient Refused Fluticasone Propionate (Fluticasone Propionate Nasal 16 Gm [place]) 1 spray NOSTRIL-B BID [facility] Last Admin: 05/27/24 08:05 Dose: 1 spray Documented By: JIMY Glipizide (Glipizide 10 Mg Tablet) 10 mg PO BID [facility] Last Admin: 05/27/24 08:05 Dose: 10 mg Documented By: JIMY Melatonin (Melatonin 3 Mg Tablet) 3 mg PO BEDTIME PRN PRN Reason: Insomnia Last Admin: 05/26/24 20:12 Dose: 3 mg Documented By: LORA Nitroglycerin (Nitroglycerin 0.4 Mg Tab.Subl) 0.4 mg SUBLINGUAL Q5M PRN PRN Reason: angina Omeprazole (Omeprazole 20 Mg Capsule.Dr) 20 mg PO DAILY@0630 [facility] Last Admin: 05/27/24 06:24 Dose: 20 mg Documented By: LORA Sitagliptin Phosphate (Sitagliptin Phosphate 100 Mg Tablet) 100 mg PO DAILY [facility] Last Admin: 05/27/24 08:05 Dose: 100 mg Documented By: JIMY Sodium Chloride (0.9 % Sodium Chloride Flush 3 Ml Syringe) 3 ml IVFLUSH QSHIFT [facility] Last Admin: 05/27/24 08:05 Dose: Not Given Documented By: JIMY Non-Admin Reason: No Access Trolamine Salicylate (Trolamine Salicylate 10 % Cream 141 Gm [place]) 1 appl TOPICAL BID PRN; Protocol PRN Reason: both shoulders Last Admin: 05/22/24 21:04 Dose: 1 appl Documented By: YAHIR Labs 05/17/24 09:36 05/17/24 09:36 Labs: Laboratory Results - last 24 hr 05/27/24 05/27/24 07:15 11:44 POC Glucose 156 H 199 H Assessment and Plan (1) Cognitive impairment: Status: Acute (2) Glaucoma of both eyes: Status: Acute Plan 88yo F with vascular dementia, diabetes, hypertension, hyperlipidemia, and peptic ulcer disease presented with mechanical fall and found to have left foot fracture awaiting safe placement in ED, admitted to facilitate conservatorship/placement vascular dementia + cognitive impairment. stable, conservatorship pending. MOCA 08/02 DM2 Hba1c 7.7 continue GPZ, empagliflozin, sitagliptin Blood sugar improving since place on diabetic diet , follow blood sugars ,strongly rec to follow diabetic diet. L foot fx fractures > 8wk old, Ortho consulted>boot recommended WBAT/ambulate t.i.d. bilateral shoulder pain/likely due to osteoarthritis. on Aspercreme/Tylenol Evaluated by OT, encourage to do ROM exercises. VTE ppx LMWH dispo LTC In my clinical judgment, the patient requires continued inpatient hospitalization for the following reasons: conservatorship/placement Quality Stroke Does the patient have a stroke diagnosis?: No VTE Prior VTE?: No VTE Risk Level:: Medical - moderate - high VTE Device Contraindication: Treatment Not Indicated VTE Drug Contraindication: N/A - Med Ordered
[2024-05-27 16:13] LABS: Glucose, Whole Blood 280 mg/dL (60-115)
[2024-05-27] MEDS: Atorvastatin Calcium 10 MG TABLET PO (20:30)
[2024-05-28] VITALS: BP 162/79; PULSE 89; RESP 16; TEMP 36.7; O2SAT 97
[2024-05-28] MEDS: Throat Lozenge, Medicated LOZENGE 1 LOZENGE MUCOUS MEM ×2 (00:53→12:12)
[2024-05-28 01:30] VITALS: RESP 16
[2024-05-28] MEDS: Omeprazole 20 MG CAPSULE.DR PO (06:07)
[2024-05-28 08:00] VITALS: BP 140/75; PULSE 91; RESP 14; TEMP 36.9; O2SAT 97
[2024-05-28 08:00] LABS: Glucose, Whole Blood 139 mg/dL (60-115)
[2024-05-28 09:49] VITALS: BP 156/70; PULSE 87; RESP 18; O2SAT 95
[2024-05-28] MEDS: Butalb/Acetamin/Caff 50/325/40 TABLET 1 TAB PO ×2 (09:50→21:20)
[2024-05-28] MEDS: Aspirin Enteric Coated 81 MG TABLET.DR PO (09:50)
[2024-05-28] MEDS: SITagliptin Phosphate 100 MG TABLET PO (09:51)
[2024-05-28] MEDS: Empagliflozin 10 MG TABLET PO (09:51)
[2024-05-28] MEDS: glipiZIDE 10 MG TABLET PO ×2 (09:51→21:20)
[2024-05-28] MEDS: Fluticasone Propionate Nasal 16 GM SPRAY 1 SPRAY NOSTRIL-B ×2 (09:51→21:22)
--- NOTE | 2024-05-28 14:22 | MHC.CM.PN ---
EMR REVIEWED, PT W/DEMENTIA IN NEED OF LOCKED DEMENTIA UNIT FOR LTC, CONSERVATORSHIP HEARING 06/01, [facility] CM WILL CONT TO FOLLOW DC NEEDS.
--- NOTE | 2024-05-28 15:57 | HO.PM.IMPN ---
Subjective Subjective Date of Service: 05/28/24 Interval History: Being followed for placement Review of Systems No complain of shoulder pain, tolerating diet, no nausea, no vomiting, no abdominal pain, no diarrhea, no behavioral issues. Physical Exam Vital Signs: Vital Signs: Last Vital Signs Temp 98.5 F 05/28/24 08:00 Pulse 87 05/28/24 09:49 Resp 18 05/28/24 09:49 BP 156/70 H 05/28/24 09:49 Pulse Ox 95 05/28/24 09:49 O2 Del Method Room Air 05/28/24 09:49 BMI result Body Mass Index 24.5 Lungs: air entry fair Heart: regular rate and rhythm. Abd: soft, non-tender, non-distended Ext: No edema/improving bilateral shoulder range of motion. Skin: warm/well-perfused Neuro: alert, no focal weakness Psych: impaired insight Objective Data Active Medications Acetaminophen (Acetaminophen 325 Mg Tablet) 650 mg PO Q4H PRN PRN Reason: headache or pain Last Admin: 05/19/24 20:33 Dose: 650 mg Documented By: SON Acetaminophen/Butalbital/Caffeine (Butalb/Acetamin/Caff 50/325/40 Tablet) 1 tab PO Q4H PRN PRN Reason: Headache Last Admin: 05/28/24 09:50 Dose: 1 tab Documented By: NERIS Amitriptyline HCl (Amitriptyline Hcl 25 Mg Tablet) 25 mg PO BEDTIME [facility] Last Admin: 05/27/24 21:28 Dose: Not Given Documented By: TAY Non-Admin Reason: Patient Refused Aspirin (Aspirin Enteric Coated 81 Mg Tablet.) 81 mg PO DAILY [facility] Last Admin: 05/28/24 09:50 Dose: 81 mg Documented By: NERIS Atorvastatin Calcium (Atorvastatin Calcium 10 Mg Tablet) 10 mg PO BEDTIME [facility] Last Admin: 05/27/24 20:30 Dose: 10 mg Documented By: TAY Benzocaine (Throat Lozenge, Medicated Lozenge) 1 lozenge MUCOUS MEM Q2H PRN PRN Reason: Sore Throat Last Admin: 05/28/24 12:12 Dose: 1 lozenge Documented By: ENRIS Empagliflozin (Empagliflozin 10 Mg Tablet) 10 mg PO DAILY [facility] Last Admin: 05/28/24 09:51 Dose: 10 mg Documented By: NERIS Enoxaparin Sodium (Enoxaparin Sodium 40 Mg/0.4 Ml Syringe) 40 mg SUBCUT Q24H [facility] Last Admin: 05/27/24 17:21 Dose: Not Given Documented By: JIMY Non-Admin Reason: Patient Refused Fluticasone Propionate (Fluticasone Propionate Nasal 16 Gm [place]) 1 spray NOSTRIL-B BID [facility] Last Admin: 05/28/24 09:51 Dose: 1 spray Documented By: NERIS Glipizide (Glipizide 10 Mg Tablet) 10 mg PO BID [facility] Last Admin: 05/28/24 09:51 Dose: 10 mg Documented By: NERIS Melatonin (Melatonin 3 Mg Tablet) 3 mg PO BEDTIME PRN PRN Reason: Insomnia Last Admin: 05/26/24 20:12 Dose: 3 mg Documented By: LORA Nitroglycerin (Nitroglycerin 0.4 Mg Tab.Subl) 0.4 mg SUBLINGUAL Q5M PRN PRN Reason: angina Omeprazole (Omeprazole 20 Mg Capsule.Dr) 20 mg PO DAILY@0630 [facility] Last Admin: 05/28/24 06:07 Dose: 20 mg Documented By: EDUARDO Sitagliptin Phosphate (Sitagliptin Phosphate 100 Mg Tablet) 100 mg PO DAILY [facility] Last Admin: 05/28/24 09:51 Dose: 100 mg Documented By: NERIS Sodium Chloride (0.9 % Sodium Chloride Flush 3 Ml Syringe) 3 ml IVFLUSH QSHIFT [facility] Last Admin: 05/28/24 14:19 Dose: Not Given Documented By: NERIS Non-Admin Reason: No Access Trolamine Salicylate (Trolamine Salicylate 10 % Cream 141 Gm Tube) 1 appl TOPICAL BID PRN; Protocol PRN Reason: both shoulders Last Admin: 05/22/24 21:04 Dose: 1 appl Documented By: YAHIR Labs 05/17/24 09:36 05/17/24 09:36 Labs: Laboratory Results - last 24 hr 05/27/24 05/28/24 15:56 07:57 POC Glucose 280 H 139 H Assessment and Plan (1) Cognitive impairment: Status: Acute (2) Glaucoma of both eyes: Status: Acute Plan 88yo F with vascular dementia, diabetes, hypertension, hyperlipidemia, and peptic ulcer disease presented with mechanical fall and found to have left foot fracture awaiting safe placement in ED, admitted to facilitate conservatorship/placement vascular dementia + cognitive impairment. stable, conservatorship pending. MOCA 08/02 DM2 Hba1c 7.7 continue GPZ, empagliflozin, sitagliptin Blood sugar improving since place on diabetic diet , follow blood sugars ,strongly rec to follow diabetic diet. L foot fx fractures > 8wk old, Ortho consulted>boot recommended WBAT/ambulate t.i.d. bilateral shoulder pain/likely due to osteoarthritis. on Aspercreme/Tylenol Evaluated by OT, encourage to do ROM exercises. VTE ppx LMWH dispo LTC In my clinical judgment, the patient requires continued inpatient hospitalization for the following reasons: conservatorship/placement Quality Stroke Does the patient have a stroke diagnosis?: No VTE Prior VTE?: No VTE Risk Level:: Medical - moderate - high VTE Device Contraindication: Treatment Not Indicated VTE Drug Contraindication: N/A - Med Ordered
[2024-05-28 16:00] VITALS: BP 135/72; PULSE 91; RESP 18; TEMP 36.6; O2SAT 97
--- NOTE | 2024-05-28 18:41 | PC.NURSE ---
Pt has been refusing lovenox. Last dose given was 04/19. Pt uses compression stockings while in bed and ambulating throughout the day. Dr. Bowman notified. Lovenox DC'maria esther.
[2024-05-28 20:10] LABS: Glucose, Whole Blood 223 mg/dL (60-115)
[2024-05-28] MEDS: Atorvastatin Calcium 10 MG TABLET PO (21:20)
[2024-05-28 23:11] VITALS: BP 143/86; PULSE 94; RESP 16; TEMP 36.3; O2SAT 98
[2024-05-29] MEDS: Omeprazole 20 MG CAPSULE.DR PO (05:17)
[2024-05-29] MEDS: Butalb/Acetamin/Caff 50/325/40 TABLET 1 TAB PO ×2 (05:17→19:57)
[2024-05-29] MEDS: Throat Lozenge, Medicated LOZENGE 1 LOZENGE MUCOUS MEM ×2 (05:20→19:53)
[2024-05-29 08:06] VITALS: BP 152/70; PULSE 77; RESP 18; TEMP 36.1; O2SAT 99
[2024-05-29 08:19] LABS: Glucose, Whole Blood 136 mg/dL (60-115)
[2024-05-29] MEDS: Empagliflozin 10 MG TABLET PO (08:45)
[2024-05-29] MEDS: glipiZIDE 10 MG TABLET PO ×2 (08:45→19:52)
[2024-05-29] MEDS: SITagliptin Phosphate 100 MG TABLET PO (08:45)
[2024-05-29] MEDS: Aspirin Enteric Coated 81 MG TABLET.DR PO (08:45)
[2024-05-29] MEDS: Fluticasone Propionate Nasal 16 GM SPRAY 1 SPRAY NOSTRIL-B ×2 (08:47→19:53)
[2024-05-29 11:25] LABS: Glucose, Whole Blood 188 mg/dL (60-115)
--- NOTE | 2024-05-29 12:02 | P.PNIM_ITS ---
Subjective Subjective Date of Service: 05/29/24 Interval History: Being followed for placement Review of Systems no new c/o. Physical Exam 2 Vital Signs: Vital Signs: Last Vital Signs Temp 97 F 05/29/24 08:06 Pulse 77 05/29/24 08:06 Resp 18 05/29/24 08:06 BP 152/70 H 05/29/24 08:06 Pulse Ox 99 05/29/24 08:06 O2 Del Method Room Air 05/29/24 08:06 BMI result Body Mass Index 24.5 Lungs: air entry fair Heart: regular rate and rhythm. Abd: soft, non-tender, non-distended Ext: No edema/improving bilateral shoulder range of motion. Skin: warm/well-perfused Neuro: alert, no focal weakness Psych: impaired insight Objective Data Active Medications Acetaminophen (Acetaminophen 325 Mg Tablet) 650 mg PO Q4H PRN PRN Reason: headache or pain Last Admin: 05/19/24 20:33 Dose: 650 mg Documented By: SON Acetaminophen/Butalbital/Caffeine (Butalb/Acetamin/Caff 50/325/40 Tablet) 1 tab PO Q4H PRN PRN Reason: Headache Last Admin: 05/29/24 05:17 Dose: 1 tab Documented By: SEE Amitriptyline HCl (Amitriptyline Hcl 25 Mg Tablet) 25 mg PO BEDTIME [facility] Last Admin: 05/28/24 21:27 Dose: Not Given Documented By: SEE Non-Admin Reason: Patient Refused Aspirin (Aspirin Enteric Coated 81 Mg Tablet.) 81 mg PO DAILY [facility] Last Admin: 05/29/24 08:45 Dose: 81 mg Documented By: LOCO Atorvastatin Calcium (Atorvastatin Calcium 10 Mg Tablet) 10 mg PO BEDTIME [facility] Last Admin: 05/28/24 21:20 Dose: 10 mg Documented By: SEE Benzocaine (Throat Lozenge, Medicated Lozenge) 1 lozenge MUCOUS MEM Q2H PRN PRN Reason: Sore Throat Last Admin: 05/29/24 05:20 Dose: 1 lozenge Documented By: SEE Empagliflozin (Empagliflozin 10 Mg Tablet) 10 mg PO DAILY [facility] Last Admin: 05/29/24 08:45 Dose: 10 mg Documented By: LOCO Fluticasone Propionate (Fluticasone Propionate Nasal 16 Gm [place]) 1 spray NOSTRIL-B BID [facility] Last Admin: 05/29/24 08:47 Dose: 1 spray Documented By: LOCO Glipizide (Glipizide 10 Mg Tablet) 10 mg PO BID [facility] Last Admin: 05/29/24 08:45 Dose: 10 mg Documented By: LOCO Melatonin (Melatonin 3 Mg Tablet) 3 mg PO BEDTIME PRN PRN Reason: Insomnia Last Admin: 05/26/24 20:12 Dose: 3 mg Documented By: LORA Nitroglycerin (Nitroglycerin 0.4 Mg Tab.Subl) 0.4 mg SUBLINGUAL Q5M PRN PRN Reason: angina Omeprazole (Omeprazole 20 Mg Capsule.Dr) 20 mg PO DAILY@30 [facility] Last Admin: 05/29/24 05:17 Dose: 20 mg Documented By: SEE Sitagliptin Phosphate (Sitagliptin Phosphate 100 Mg Tablet) 100 mg PO DAILY [facility] Last Admin: 05/29/24 08:45 Dose: 100 mg Documented By: LOCO Sodium Chloride (0.9 % Sodium Chloride Flush 3 Ml Syringe) 3 ml IVFLUSH QSHIFT [facility] Last Admin: 05/29/24 07:38 Dose: Not Given Documented By: LOCO Non-Admin Reason: No Access Trolamine Salicylate (Trolamine Salicylate 10 % Cream 141 Gm Tube) 1 appl TOPICAL BID PRN; Protocol PRN Reason: both shoulders Last Admin: 05/22/24 21:04 Dose: 1 appl Documented By: YAHIR Labs 05/17/24 09:36 05/17/24 09:36 Labs: Laboratory Results - last 24 hr 05/28/24 05/29/24 05/29/24 20:01 08:08 11:20 POC Glucose 223 H 136 H 188 H Assessment and Plan (1) Cognitive impairment: Status: Acute (2) Glaucoma of both eyes: Status: Acute Plan 88yo F with vascular dementia, diabetes, hypertension, hyperlipidemia, and peptic ulcer disease presented with mechanical fall and found to have left foot fracture awaiting safe placement in ED, admitted to facilitate conservatorship/placement vascular dementia + cognitive impairment. stable, conservatorship pending. MOCA 08/02 DM2 Hba1c 7.7 continue GPZ, empagliflozin, sitagliptin Blood sugar improving since place on diabetic diet , follow blood sugars ,strongly rec to follow diabetic diet. L foot fx fractures > 8wk old, Ortho consulted>boot recommended WBAT/ambulate t.i.d. bilateral shoulder pain/likely due to osteoarthritis. on Aspercreme/Tylenol Evaluated by OT, encourage to do ROM exercises. VTE ppx LMWH dispo LTC In my clinical judgment, the patient requires continued inpatient hospitalization for the following reasons: conservatorship/placement Quality Stroke Does the patient have a stroke diagnosis?: No VTE Prior VTE?: No VTE Risk Level:: Medical - moderate - high VTE Device Contraindication: Treatment Not Indicated VTE Drug Contraindication: N/A - Med Ordered
[2024-05-29 16:00] VITALS: BP 159/73; PULSE 87; RESP 18; TEMP 36.8; O2SAT 97
[2024-05-29] MEDS: Atorvastatin Calcium 10 MG TABLET PO (19:52)
[2024-05-29] MEDS: Melatonin 3 MG TABLET PO (19:52)
[2024-05-30] VITALS: BP 139/62; PULSE 76; RESP 16; TEMP 36.3; O2SAT 98
[2024-05-30] MEDS: Omeprazole 20 MG CAPSULE.DR PO (06:21)
[2024-05-30] MEDS: Throat Lozenge, Medicated LOZENGE 1 LOZENGE MUCOUS MEM ×2 (06:24→09:14)
[2024-05-30] MEDS: Butalb/Acetamin/Caff 50/325/40 TABLET 1 TAB PO ×2 (06:35→14:05)
[2024-05-30 07:44] LABS: Glucose, Whole Blood 146 mg/dL (60-115)
[2024-05-30 08:02] VITALS: BP 129/59; PULSE 79; RESP 12; TEMP 36.6; O2SAT 94
[2024-05-30] MEDS: glipiZIDE 10 MG TABLET PO ×2 (09:14→20:05)
[2024-05-30] MEDS: Empagliflozin 10 MG TABLET PO (09:14)
[2024-05-30] MEDS: SITagliptin Phosphate 100 MG TABLET PO (09:14)
[2024-05-30] MEDS: Aspirin Enteric Coated 81 MG TABLET.DR PO (09:14)
[2024-05-30] MEDS: Fluticasone Propionate Nasal 16 GM SPRAY 1 SPRAY NOSTRIL-B ×2 (09:18→20:05)
--- NOTE | 2024-05-30 11:29 | P.PNIM_ITS ---
Subjective Subjective Date of Service: 05/30/24 Interval History: Being followed for placement Review of Systems no new c/o. Physical Exam 2 Vital Signs: Vital Signs: Last Vital Signs Temp 97.8 F 05/30/24 08:02 Pulse 79 05/30/24 08:02 Resp 12 05/30/24 08:02 BP 129/59 L 05/30/24 08:02 Pulse Ox 94 05/30/24 08:02 O2 Del Method Room Air 05/30/24 08:02 BMI result Body Mass Index 24.5 Lungs: air entry fair Heart: regular rate and rhythm. Abd: soft, non-tender, non-distended Ext: No edema/improving bilateral shoulder range of motion. Skin: warm/well-perfused Neuro: alert, no focal weakness Psych: impaired insight Objective Data Active Medications Acetaminophen (Acetaminophen 325 Mg Tablet) 650 mg PO Q4H PRN PRN Reason: headache or pain Last Admin: 05/19/24 20:33 Dose: 650 mg Acetaminophen/Butalbital/Caffeine (Butalb/Acetamin/Caff 50/325/40 Tablet) 1 tab PO Q4H PRN PRN Reason: Headache Last Admin: 05/30/24 06:35 Dose: 1 tab Documented By: SHERRELL Amitriptyline HCl (Amitriptyline Hcl 25 Mg Tablet) 25 mg PO BEDTIME [facility] Last Admin: 05/29/24 19:59 Dose: Not Given Documented By: SHERRELL Non-Admin Reason: Patient Refused Aspirin (Aspirin Enteric Coated 81 Mg Tablet.) 81 mg PO DAILY [facility] Last Admin: 05/30/24 09:14 Dose: 81 mg Documented By: GINO Atorvastatin Calcium (Atorvastatin Calcium 10 Mg Tablet) 10 mg PO BEDTIME [facility] Last Admin: 05/29/24 19:52 Dose: 10 mg Documented By: SHERRELL Benzocaine (Throat Lozenge, Medicated Lozenge) 1 lozenge MUCOUS MEM Q2H PRN PRN Reason: Sore Throat Last Admin: 05/30/24 06:24 Dose: 1 lozenge Documented By: SHERRELL Empagliflozin (Empagliflozin 10 Mg Tablet) 10 mg PO DAILY [facility] Last Admin: 05/30/24 09:14 Dose: 10 mg Documented By: GINO Fluticasone Propionate (Fluticasone Propionate Nasal 16 Gm [place]) 1 spray NOSTRIL-B BID [facility] Last Admin: 05/30/24 09:18 Dose: 1 spray Documented By: GINO Glipizide (Glipizide 10 Mg Tablet) 10 mg PO BID [facility] Last Admin: 05/30/24 09:14 Dose: 10 mg Documented By: GINO Melatonin (Melatonin 3 Mg Tablet) 3 mg PO BEDTIME PRN PRN Reason: Insomnia Last Admin: 05/29/24 19:52 Dose: 3 mg Documented By: SHERRELL Nitroglycerin (Nitroglycerin 0.4 Mg Tab.Subl) 0.4 mg SUBLINGUAL Q5M PRN PRN Reason: angina Omeprazole (Omeprazole 20 Mg Capsule.Dr) 20 mg PO DAILY@0630 [facility] Last Admin: 05/30/24 06:21 Dose: 20 mg Documented By: SHERRELL Sitagliptin Phosphate (Sitagliptin Phosphate 100 Mg Tablet) 100 mg PO DAILY [facility] Last Admin: 05/30/24 09:14 Dose: 100 mg Documented By: GINO Sodium Chloride (0.9 % Sodium Chloride Flush 3 Ml Syringe) 3 ml IVFLUSH QSHIFT [facility] Last Admin: 05/30/24 07:36 Dose: Not Given Documented By: GINO Non-Admin Reason: No Access Trolamine Salicylate (Trolamine Salicylate 10 % Cream 141 Gm Tube) 1 appl TOPICAL BID PRN; Protocol PRN Reason: both shoulders Last Admin: 05/22/24 21:04 Dose: 1 appl Documented By: YAHIR Labs 05/17/24 09:36 05/17/24 09:36 Labs: Laboratory Results - last 24 hr 05/30/24 07:30 POC Glucose 146 H Assessment and Plan (1) Cognitive impairment: Status: Acute (2) Glaucoma of both eyes: Status: Acute Plan 88yo F with vascular dementia, diabetes, hypertension, hyperlipidemia, and peptic ulcer disease presented with mechanical fall and found to have left foot fracture awaiting safe placement in ED, admitted to facilitate conservatorship/placement vascular dementia + cognitive impairment. stable, conservatorship pending. MOCA 08/02 DM2 Hba1c 7.7 continue GPZ, empagliflozin, sitagliptin Blood sugar improving since place on diabetic diet , follow blood sugars ,strongly rec to follow diabetic diet. L foot fx fractures > 8wk old, Ortho consulted>boot recommended WBAT/ambulate t.i.d. bilateral shoulder pain/likely due to osteoarthritis. on Aspercreme/Tylenol Evaluated by OT, encourage to do ROM exercises. VTE ppx LMWH dispo LTC In my clinical judgment, the patient requires continued inpatient hospitalization for the following reasons: conservatorship/placement Quality Stroke Does the patient have a stroke diagnosis?: No VTE Prior VTE?: No VTE Risk Level:: Medical - moderate - high VTE Device Contraindication: Treatment Not Indicated VTE Drug Contraindication: N/A - Med Ordered
[2024-05-30 11:39] LABS: Glucose, Whole Blood 148 mg/dL (60-115)
[2024-05-30] MEDS: Throat Spray, Medicated 177 ML BOTTLE 1 SPRAY MUCOUS MEM (13:05)
[2024-05-30] MEDS: Milk of Magnesia 30 ML ORAL.SUSP 15 ML PO (14:05)
[2024-05-30] MEDS: Docusate Sodium 100 MG CAPSULE PO ×2 (14:05→20:05)
[2024-05-30] MEDS: polyethylene glycoL 3350 17 GM POWD.PACK PO (14:05)
[2024-05-30 16:22] VITALS: BP 121/74; PULSE 84; RESP 18; TEMP 37; O2SAT 97
[2024-05-30 16:32] LABS: Glucose, Whole Blood 174 mg/dL (60-115)
[2024-05-30] MEDS: Atorvastatin Calcium 10 MG TABLET PO (20:05)
[2024-05-30 20:26] LABS: Glucose, Whole Blood 222 mg/dL (60-115)
[2024-05-30 23:49] VITALS: BP 130/62; PULSE 75; RESP 18; TEMP 36.4; O2SAT 97
[2024-05-31] MEDS: Omeprazole 20 MG CAPSULE.DR PO (05:30)
[2024-05-31 07:13] VITALS: BP 150/90; PULSE 80; RESP 17; TEMP 36.1
[2024-05-31 07:19] LABS: Glucose, Whole Blood 123 mg/dL (60-115)
[2024-05-31] MEDS: Aspirin Enteric Coated 81 MG TABLET.DR PO (08:20)
[2024-05-31] MEDS: glipiZIDE 10 MG TABLET PO ×2 (08:20→20:06)
[2024-05-31] MEDS: Empagliflozin 10 MG TABLET PO (08:20)
[2024-05-31] MEDS: SITagliptin Phosphate 100 MG TABLET PO (08:20)
[2024-05-31] MEDS: Fluticasone Propionate Nasal 16 GM SPRAY 1 SPRAY NOSTRIL-B ×2 (08:21→20:06)
[2024-05-31] MEDS: Butalb/Acetamin/Caff 50/325/40 TABLET 1 TAB PO ×2 (08:27→19:33)
--- NOTE | 2024-05-31 12:11 | HO.PM.IMPN ---
Subjective Subjective Date of Service: 05/31/24 Interval History: Being followed for placement Review of Systems no new c/o. Physical Exam Vital Signs: Vital Signs: Last Vital Signs Temp 97 F 05/31/24 07:13 Pulse 80 05/31/24 07:13 Resp 17 05/31/24 07:13 BP 150/90 H 05/31/24 07:13 Pulse Ox 97 05/30/24 23:49 O2 Del Method Room Air 05/30/24 23:49 BMI result Body Mass Index 24.5 Lungs: air entry fair Heart: regular rate and rhythm. Abd: soft, non-tender, non-distended Ext: No edema/improving bilateral shoulder range of motion. Skin: warm/well-perfused Neuro: alert, no focal weakness Psych: impaired insight Objective Data Active Medications Acetaminophen (Acetaminophen 325 Mg Tablet) 650 mg PO Q4H PRN PRN Reason: headache or pain Last Admin: 05/19/24 20:33 Dose: 650 mg Acetaminophen/Butalbital/Caffeine (Butalb/Acetamin/Caff 50/325/40 Tablet) 1 tab PO Q4H PRN PRN Reason: Headache Last Admin: 05/31/24 08:27 Dose: 1 tab Documented By: CARLTON Amitriptyline HCl (Amitriptyline Hcl 25 Mg Tablet) 25 mg PO BEDTIME [facility] Last Admin: 05/30/24 20:08 Dose: Not Given Documented By: JOSE E Non-Admin Reason: Patient Refused Aspirin (Aspirin Enteric Coated 81 Mg Tablet.) 81 mg PO DAILY [facility] Last Admin: 05/31/24 08:20 Dose: 81 mg Documented By: CARLTON Atorvastatin Calcium (Atorvastatin Calcium 10 Mg Tablet) 10 mg PO BEDTIME [facility] Last Admin: 05/30/24 20:05 Dose: 10 mg Documented By: JOSE E Docusate Sodium (Docusate Sodium 100 Mg Capsule) 100 mg PO BID [facility] Last Admin: 05/31/24 08:48 Dose: Not Given Documented By: CARLTON Non-Admin Reason: Patient Refused Empagliflozin (Empagliflozin 10 Mg Tablet) 10 mg PO DAILY [facility] Last Admin: 05/31/24 08:20 Dose: 10 mg Documented By: CARLTON Fluticasone Propionate (Fluticasone Propionate Nasal 16 Gm [place]) 1 spray NOSTRIL-B BID [facility] Last Admin: 05/31/24 08:21 Dose: 1 spray Documented By: CARLTON Glipizide (Glipizide 10 Mg Tablet) 10 mg PO BID [facility] Last Admin: 05/31/24 08:20 Dose: 10 mg Documented By: CARLTON Melatonin (Melatonin 3 Mg Tablet) 3 mg PO BEDTIME PRN PRN Reason: Insomnia Last Admin: 05/29/24 19:52 Dose: 3 mg Documented By: SHERRELL Multi-Ingred Medicated Throat [place] (Throat [place], Medicated 177 Ml Bottle) 1 spray MUCOUS MEM Q2H PRN PRN Reason: throat irritaion Last Admin: 05/30/24 13:05 Dose: 1 spray Documented By: COTEMA Nitroglycerin (Nitroglycerin 0.4 Mg Tab.Subl) 0.4 mg SUBLINGUAL Q5M PRN PRN Reason: angina Omeprazole (Omeprazole 20 Mg Capsule.Dr) 20 mg PO DAILY@0630 [facility] Last Admin: 05/31/24 05:30 Dose: 20 mg Documented By: JOSE E Polyethylene Glycol (Polyethylene Glycol 3350 17 Gm Powd.Pack) 17 gm PO DAILY [facility] Last Admin: 05/31/24 08:48 Dose: Not Given Documented By: CARLTON Non-Admin Reason: Patient Refused Sitagliptin Phosphate (Sitagliptin Phosphate 100 Mg Tablet) 100 mg PO DAILY [facility] Last Admin: 05/31/24 08:20 Dose: 100 mg Documented By: CARLTON Sodium Chloride (0.9 % Sodium Chloride Flush 3 Ml Syringe) 3 ml IVFLUSH QSHIFT [facility] Last Admin: 05/31/24 07:23 Dose: Not Given Documented By: CARLTON Non-Admin Reason: No Access Trolamine Salicylate (Trolamine Salicylate 10 % Cream 141 Gm Tube) 1 appl TOPICAL BID PRN; Protocol PRN Reason: both shoulders Last Admin: 05/22/24 21:04 Dose: 1 appl Documented By: YAHIR Labs 05/17/24 09:36 05/17/24 09:36 Labs: Laboratory Results - last 24 hr 05/30/24 05/30/24 05/31/24 16:26 20:06 07:12 POC Glucose 174 H 222 H 123 H Assessment and Plan (1) Cognitive impairment: Status: Acute (2) Glaucoma of both eyes: Status: Acute Plan 88yo F with vascular dementia, diabetes, hypertension, hyperlipidemia, and peptic ulcer disease presented with mechanical fall and found to have left foot fracture awaiting safe placement in ED, admitted to facilitate conservatorship/placement vascular dementia + cognitive impairment. stable, conservatorship pending. MOCA 08/02 DM2 Hba1c 7.7 continue GPZ, empagliflozin, sitagliptin Blood sugar improving since place on diabetic diet , follow blood sugars ,strongly rec to follow diabetic diet. L foot fx fractures > 8wk old, Ortho consulted>boot recommended WBAT/ambulate t.i.d. bilateral shoulder pain/likely due to osteoarthritis. on Aspercreme/Tylenol Evaluated by OT, encourage to do ROM exercises. VTE ppx LMWH dispo LTC In my clinical judgment, the patient requires continued inpatient hospitalization for the following reasons: conservatorship/placement Quality Stroke Does the patient have a stroke diagnosis?: No VTE Prior VTE?: No VTE Risk Level:: Medical - moderate - high VTE Device Contraindication: Treatment Not Indicated VTE Drug Contraindication: N/A - Med Ordered
--- NOTE | 2024-05-31 13:43 | MHC.CM.PN ---
06/01 1:45pm A Conservator hearing is scheduled. Guardian Gaston Denney will be able to access financials for MH osiel, once the Conservator paperwork is available. FC contacted for update. DP LTC via BLS.
[2024-05-31 16:00] VITALS: BP 153/69; PULSE 98; RESP 12; TEMP 36.6; O2SAT 100
[2024-05-31] MEDS: Docusate Sodium 100 MG CAPSULE PO (20:06)
[2024-05-31] MEDS: Atorvastatin Calcium 10 MG TABLET PO (20:06)
[2024-05-31 20:29] LABS: Glucose, Whole Blood 228 mg/dL (60-115)
[2024-05-31 23:21] VITALS: BP 134/63; PULSE 78; RESP 18; TEMP 36.2; O2SAT 98
--- NOTE | 2024-06-01 | ECG_ITS ---
Test Reason : qtc Blood Pressure : / mmHG Vent. Rate : 085 BPM Atrial Rate : 085 BPM P-R Int : 188 ms QRS Dur : 074 ms QT Int : 378 ms P-R-T Axes : 068 -07 088 degrees QTc Int : 449 ms Normal sinus rhythm Nonspecific T wave abnormality Abnormal ECG When compared with ECG of 27-FEB-2024 19:06, No significant change was found Referred By: Mercedez Yee Electronically Signed By:Jer Braden
[2024-06-01] MEDS: Omeprazole 20 MG CAPSULE.DR PO (05:44)
[2024-06-01 06:57] VITALS: BP 140/82; PULSE 76; RESP 16; TEMP 36.6; O2SAT 96
[2024-06-01 07:25] LABS: Glucose, Whole Blood 120 mg/dL (60-115)
[2024-06-01 07:27] LABS: Hematocrit 36.9 % (37.0-47.0); Hemoglobin 12.3 g/dl (12.0-16.0); Mean Corpuscular HGB Conc 33.3 g/dl (31.0-35.0); Mean Corpuscular Hemoglobin 30.8 pg (27.0-33.0); Mean Corpuscular Volume 92.5 fL (80.0-98.0); Mean Platelet Volume 10.1 fL (9.4-12.3); Platelet Count 326 X10*3/uL (160-400); Red Blood Count 3.99 X10*6/uL (4.20-5.50); Red Cell Distribution Width 13.7 % (11.0-16.0); White Blood Count 7.1 X10*3/uL (4.8-10.8)
[2024-06-01 07:39] LABS: Anion Gap 11 (12-20); Blood Urea Nitrogen 13 mg/dL (9-16); Calcium 9.7 mg/dL (8.4-10.2); Carbon Dioxide 26 mmol/L (22-29); Chloride 106 mmol/L (96-108); Creatinine Clr Calc Pharmacy 58.6; Estimated Glomerular Filt Rate > 60; Glucose Random 120 mg/dL (60-115); Potassium 3.7 mmol/L (3.3-5.1); Sodium 139 mmol/L (135-145)
[2024-06-01] MEDS: Empagliflozin 10 MG TABLET PO (08:34)
[2024-06-01] MEDS: SITagliptin Phosphate 100 MG TABLET PO (08:34)
[2024-06-01] MEDS: glipiZIDE 10 MG TABLET PO ×2 (08:34→20:40)
[2024-06-01] MEDS: Aspirin Enteric Coated 81 MG TABLET.DR PO (08:34)
[2024-06-01] MEDS: Fluticasone Propionate Nasal 16 GM SPRAY 1 SPRAY NOSTRIL-B ×2 (08:38→20:40)
--- NOTE | 2024-06-01 08:39 | HO.PM.IMPN ---
Subjective Subjective Date of Service: 06/01/24 Interval History: Awaiting Conservatorship and placement advanced dementia, no new complaint Physical Exam Vital Signs: Vital Signs: Last Vital Signs Temp 98 F 06/01/24 06:57 Pulse 76 06/01/24 06:57 Resp 16 06/01/24 06:57 BP 140/82 H 06/01/24 06:57 Pulse Ox 96 06/01/24 06:57 O2 Del Method Room Air 06/01/24 06:57 BMI result Body Mass Index 24.5 Objective Data Active Medications Acetaminophen (Acetaminophen 325 Mg Tablet) 650 mg PO Q4H PRN PRN Reason: headache or pain Last Admin: 05/19/24 20:33 Dose: 650 mg Acetaminophen/Butalbital/Caffeine (Butalb/Acetamin/Caff 50/325/40 Tablet) 1 tab PO Q4H PRN PRN Reason: Headache Last Admin: 05/31/24 19:33 Dose: 1 tab Documented By: LUIS Amitriptyline HCl (Amitriptyline Hcl 25 Mg Tablet) 25 mg PO BEDTIME [facility] Last Admin: 05/31/24 20:09 Dose: Not Given Documented By: LUIS Non-Admin Reason: Patient Refused Aspirin (Aspirin Enteric Coated 81 Mg Tablet.) 81 mg PO DAILY [facility] Last Admin: 06/01/24 08:34 Dose: 81 mg Documented By: CARLTON Atorvastatin Calcium (Atorvastatin Calcium 10 Mg Tablet) 10 mg PO BEDTIME [facility] Last Admin: 05/31/24 20:06 Dose: 10 mg Documented By: LUIS Docusate Sodium (Docusate Sodium 100 Mg Capsule) 100 mg PO BID [facility] Last Admin: 06/01/24 08:38 Dose: Not Given Documented By: CARLTON Non-Admin Reason: Patient Refused Empagliflozin (Empagliflozin 10 Mg Tablet) 10 mg PO DAILY [facility] Last Admin: 06/01/24 08:34 Dose: 10 mg Documented By: CARLTON Enoxaparin Sodium (Enoxaparin Sodium 40 Mg/0.4 Ml Syringe) 40 mg SUBCUT Q24H [facility] Last Admin: 06/01/24 08:37 Dose: Not Given Documented By: CARLTON Non-Admin Reason: Patient Refused Fluticasone Propionate (Fluticasone Propionate Nasal 16 Gm [place]) 1 spray NOSTRIL-B BID [facility] Last Admin: 06/01/24 08:38 Dose: 1 spray Documented By: CARLTON Glipizide (Glipizide 10 Mg Tablet) 10 mg PO BID [facility] Last Admin: 06/01/24 08:34 Dose: 10 mg Documented By: CARLTON Melatonin (Melatonin 3 Mg Tablet) 3 mg PO BEDTIME PRN PRN Reason: Insomnia Last Admin: 05/29/24 19:52 Dose: 3 mg Documented By: JAMESONOC Multi-Ingred Medicated Throat [place] (Throat [place], Medicated 177 Ml Bottle) 1 spray MUCOUS MEM Q2H PRN PRN Reason: throat irritaion Last Admin: 05/30/24 13:05 Dose: 1 spray Documented By: COTMATIAS Nitroglycerin (Nitroglycerin 0.4 Mg Tab.Subl) 0.4 mg SUBLINGUAL Q5M PRN PRN Reason: angina Omeprazole (Omeprazole 20 Mg Capsule.Dr) 20 mg PO DAILY@0630 [facility] Last Admin: 06/01/24 05:44 Dose: 20 mg Documented By: LUIS Polyethylene Glycol (Polyethylene Glycol 3350 17 Gm Powd.Pack) 17 gm PO DAILY [facility] Last Admin: 06/01/24 08:38 Dose: Not Given Documented By: CARLTON Non-Admin Reason: Patient Refused Sitagliptin Phosphate (Sitagliptin Phosphate 100 Mg Tablet) 100 mg PO DAILY [facility] Last Admin: 06/01/24 08:34 Dose: 100 mg Documented By: CARLTON Sodium Chloride (0.9 % Sodium Chloride Flush 3 Ml Syringe) 3 ml IVFLUSH QSHIFT [facility] Last Admin: 06/01/24 07:11 Dose: Not Given Documented By: CARLTON Non-Admin Reason: No Access Trolamine Salicylate (Trolamine Salicylate 10 % Cream 141 Gm Tube) 1 appl TOPICAL BID PRN; Protocol PRN Reason: both shoulders Last Admin: 05/22/24 21:04 Dose: 1 appl Documented By: YAHIR Labs 06/01/24 07:12 06/01/24 07:12 Labs: Laboratory Results - last 24 hr 05/31/24 06/01/24 06/01/24 20:24 06:57 07:12 MCV 92.5 MCH 30.8 MCHC 33.3 RDW 13.7 Plt Count 326 MPV 10.1 Absolute Nucleated RBC 0.000 Nucleated RBC % (auto) 0.0 Anion Gap 11 L Estim Creat Clear Calc 58.6 Estimated GFR > 60 POC Glucose 228 H 120 H Random Glucose 120 H Calcium 9.7 D Assessment and Plan (1) Cognitive impairment: Status: Acute (2) Glaucoma of both eyes: Status: Acute Plan 88yo F with vascular dementia, diabetes, hypertension, hyperlipidemia, and peptic ulcer disease presented with mechanical fall on 03/24/24 and found to have left foot fracture, and has since been awaiting safe placement pending conservatorship Vascular dementia -Reese Cognitive Assessment (MoCA) is 08/02 = Severe Cognitive Impairment -lacks capacity to make sound medical decision -stable, conservatorship pending. -Psych consult for behavioral issues DM2 Hba1c 7.7 continue GPZ, empagliflozin, sitagliptin Blood sugar improving since place on diabetic diet , follow blood sugars ,strongly rec to follow diabetic diet. L foot fx fractures > 8wk old, Ortho recommends boot, no intervention , WBAT, ambulate TID bilateral shoulder pain/likely due to osteoarthritis. on Aspercreme/Tylenol OT recommends ROM exercises. VTE ppx LMWH--she typically refuses, at signficantly high risk of of DVT Dispo: Ultimately LTC Need for inpt: Pending conservatorship and placement, has no legal guardian and lacks capacity Periodica labs check CBC, BMP 06/01, unremarkable Quality Stroke Does the patient have a stroke diagnosis?: No VTE Prior VTE?: No VTE Risk Level:: Medical - moderate - high VTE Device Contraindication: Treatment Not Indicated VTE Drug Contraindication: N/A - Med Ordered
--- NOTE | 2024-06-01 09:10 | PC.NURSE ---
Psych Consult for patient behavior, refusing medication, verbally aggressive to staff.
--- NOTE | 2024-06-01 13:54 | P.CNPS_ITS ---
History of Present Illness Date of Service: 06/01/2024 Chief Complaint: placement Reason for Consult: combative behaviors Requesting physician: Dilan Garcia Discussed with referring provider: Yes Sources of Information: patient interviewed, chart reviewed and crisis/core team assessment reviewed HPI Narrative: Mrs. Mccarty is an 88 year-old woman. Seen while she was in the ED- dx of dementia, unable to care for herself awaiting for guardianship and placement. This morning pt was agitated after visit with her son who demanded to let pt go with him. However, there have been concerns in terms of son's substance use both reported by pt and in the community by protective services. She is awaiting guardian appointed by the court. Per nursing, pt had brief periods of agitation, calmer later. Pt seen in her room. She reports she does not have any memory issues and is able to care for herself. She denies SI/HI. She shows this instructional writer papers of guardianship but unable to tell what they are for. This instructional writer attempted to explained that there is court hearing pending to appoint someone who can make decisions on her behalf. She continues to insists that she does not have memory issues. This instructional writer explained assessments completed during this hospitalization which shows severe memory impairments. Pt overall was calm. No overt psychosis but she has presented initially as talking to someone who was not there along with some paranoid delusions. Diagnostics Vital Signs (24Hr): Vital Signs - 24 hr 05/31/24 16:00 05/31/24 23:21 06/01/24 06:57 Temperature 98 F 97.2 F 98 F Pulse Rate 98 78 76 Respiratory Rate 12 18 16 Blood Pressure 153/69 H 134/63 140/82 H Pulse Oximetry 100 98 96 Oxygen Delivery Method Room Air Room Air Room Air BMI result Body Mass Index 24.5 Labs 06/15/24 09:53 06/15/24 09:53 Labs: Laboratory Results - last 48 hr 05/30/24 05/30/24 05/31/24 16:26 20:06 07:12 WBC RBC Hgb Hct MCV MCH MCHC RDW Plt Count MPV Absolute Nucleated RBC Nucleated RBC % (auto) Sodium Potassium Chloride Carbon Dioxide Anion Gap BUN Creatinine Estim Creat Clear Calc Estimated GFR POC Glucose 174 H 222 H 123 H Random Glucose Calcium 05/31/24 06/01/24 06/01/24 20:24 06:57 07:12 WBC 7.1 RBC 3.99 L Hgb 12.3 Hct 36.9 L MCV 92.5 MCH 30.8 MCHC 33.3 RDW 13.7 Plt Count 326 MPV 10.1 Absolute Nucleated RBC 0.000 Nucleated RBC % (auto) 0.0 Sodium 139 Potassium 3.7 Chloride 106 Carbon Dioxide 26 Anion Gap 11 L BUN 13 Creatinine 0.57 Estim Creat Clear Calc 58.6 Estimated GFR > 60 POC Glucose 228 H 120 H Random Glucose 120 H Calcium 9.7 D Imaging Radiology Impressions: ITS Impressions Foot X-Ray 05/04/24 20:50 IMPRESSION: 1. Subtle lucency along the base of the fifth proximal phalanx may possibly be superimposition secondary to overlying soft tissues though a nondisplaced fracture would be difficult to exclude, consider dedicated radiographs of the toe and correlation point tenderness. 2. Mild osteoarthritis of the foot with hallux valgus deformity. 3. Soft tissue swelling about the foot. This exam was submitted to the interpreting radiologist for interpretation on 05/06/2024 10:05 AM. Foot X-Ray 05/06/24 09:08 IMPRESSION: 1. Again seen is chronic obliquely oriented fracture of the neck of the second metatarsal. 2. Status post plate and screw fixation of the first metatarsal with similar chronic deformity. 3. 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 4. Partially imaged ORIF of the distal tibia. Remote healed fracture deformity of the distal fibula. 5. Disuse osteopenia. 6. No definite acute fracture or dislocation. Mental Status Exam Mental Status Exam Narrative: Appearance: wearing hospital gown, fair hygiene, in NAD behavior: cooperative and friendly Psychomotor: no agitation or retardation noted Speech: mostly clear, normal rate/rhythm/volume, spontaneous TP: tangential, at times loose associations TC: wanting to go Mood: okay Affect: brightens up at times SI: none HI: none Delusions: no overt VH/AH: Insight/judgment: impaired x 2. memory/cog: alert, oriented to month, year, not so much to situation. impairments in ability to retain information, executive function, recall. Medications Medications Current Medications Acetaminophen (Acetaminophen 325 Mg Tablet) 650 mg PO Q4H PRN PRN Reason: headache or pain Last Admin: 05/19/24 20:33 Dose: 650 mg Acetaminophen/Butalbital/Caffeine (Butalb/Acetamin/Caff 50/325/40 Tablet) 1 tab PO Q4H PRN PRN Reason: Headache Last Admin: 05/31/24 19:33 Dose: 1 tab Amitriptyline HCl (Amitriptyline Hcl 25 Mg Tablet) 25 mg PO BEDTIME [facility] Last Admin: 05/31/24 20:09 Dose: Not Given Aspirin (Aspirin Enteric Coated 81 Mg Tablet.) 81 mg PO DAILY [facility] Last Admin: 06/01/24 08:34 Dose: 81 mg Atorvastatin Calcium (Atorvastatin Calcium 10 Mg Tablet) 10 mg PO BEDTIME [facility] Last Admin: 05/31/24 20:06 Dose: 10 mg Docusate Sodium (Docusate Sodium 100 Mg Capsule) 100 mg PO BID [facility] Last Admin: 06/01/24 08:38 Dose: Not Given Empagliflozin (Empagliflozin 10 Mg Tablet) 10 mg PO DAILY [facility] Last Admin: 06/01/24 08:34 Dose: 10 mg Enoxaparin Sodium (Enoxaparin Sodium 40 Mg/0.4 Ml Syringe) 40 mg SUBCUT Q24H [facility] Last Admin: 06/01/24 08:37 Dose: Not Given Fluticasone Propionate (Fluticasone Propionate Nasal 16 Gm [place]) 1 spray NOSTRIL-B BID [facility] Last Admin: 06/01/24 08:38 Dose: 1 spray Glipizide (Glipizide 10 Mg Tablet) 10 mg PO BID [facility] Last Admin: 06/01/24 08:34 Dose: 10 mg Melatonin (Melatonin 3 Mg Tablet) 3 mg PO BEDTIME PRN PRN Reason: Insomnia Last Admin: 05/29/24 19:52 Dose: 3 mg Multi-Ingred Medicated Throat [place] (Throat [place], Medicated 177 Ml Bottle) 1 spray MUCOUS MEM Q2H PRN PRN Reason: throat irritaion Last Admin: 05/30/24 13:05 Dose: 1 spray Nitroglycerin (Nitroglycerin 0.4 Mg Tab.Subl) 0.4 mg SUBLINGUAL Q5M PRN PRN Reason: angina Omeprazole (Omeprazole 20 Mg Capsule.) 20 mg PO DAILY@0630 [facility] Last Admin: 06/01/24 05:44 Dose: 20 mg Polyethylene Glycol (Polyethylene Glycol 3350 17 Gm Powd.Pack) 17 gm PO DAILY [facility] Last Admin: 06/01/24 08:38 Dose: Not Given Sitagliptin Phosphate (Sitagliptin Phosphate 100 Mg Tablet) 100 mg PO DAILY [facility] Last Admin: 06/01/24 08:34 Dose: 100 mg Sodium Chloride (0.9 % Sodium Chloride Flush 3 Ml Syringe) 3 ml IVFLUSH QSHIFT [facility] Last Admin: 06/01/24 07:11 Dose: Not Given Trolamine Salicylate (Trolamine Salicylate 10 % Cream 141 Gm Tube) 1 appl TOPICAL BID PRN; Protocol PRN Reason: both shoulders Last Admin: 05/22/24 21:04 Dose: 1 appl Allergies Allergies Allergy/AdvReac Type Severity Reaction Status Date / Time codeine Allergy Unknown Unknown Verified 02/27/24 18:11 Codeine Allergy Unknown Unknown Uncoded 02/27/24 18:11 Assessment & Plan Assessment & Plan (1) Major neurocognitive disorder: Status: Acute Code(s): F03.90 - Unspecified dementia, unspecified severity, without behavioral disturbance, psychotic disturbance, mood disturbance, and anxiety Plan Mrs. Mccarty is a 88 year-old woman admitted awaiting guardianship and placement due to advanced dementia- most likely vascular type. Pt has had periods of agitation, like today, although it does seem in the context of pt's son coming to the hospital demanding to take pt home. Pt does not think she has memory/cognitive impairments which then makes it even harder for her to accept needing more support to care for herself. PLAN 1. can try low dose risperidone 0.5mg po TID- since pt pending guardian, may need armani's order. Total time managing care of this patient today ____ minutes.
[2024-06-01 15:52] VITALS: BP 127/73; PULSE 97; RESP 18; TEMP 36.6; O2SAT 96
[2024-06-01] MEDS: Docusate Sodium 100 MG CAPSULE PO (20:40)
[2024-06-01] MEDS: Melatonin 3 MG TABLET PO (20:40)
[2024-06-01] MEDS: Atorvastatin Calcium 10 MG TABLET PO (20:40)
[2024-06-01] MEDS: Donepezil HCl 5 MG TABLET PO (20:40)
[2024-06-01 23:36] VITALS: BP 166/78; PULSE 83; RESP 16; TEMP 36.2; O2SAT 98
[2024-06-02] MEDS: Butalb/Acetamin/Caff 50/325/40 TABLET 1 TAB PO ×2 (03:12→19:47)
[2024-06-02] MEDS: Omeprazole 20 MG CAPSULE.DR PO (05:33)
[2024-06-02 07:23] VITALS: BP 131/67; PULSE 83; RESP 17; TEMP 36.7; O2SAT 97
[2024-06-02 07:45] LABS: Glucose, Whole Blood 90 mg/dL (60-115)
[2024-06-02] MEDS: glipiZIDE 10 MG TABLET PO ×2 (08:05→19:48)
[2024-06-02] MEDS: Docusate Sodium 100 MG CAPSULE PO ×2 (08:06→19:48)
[2024-06-02] MEDS: Aspirin Enteric Coated 81 MG TABLET.DR PO (08:06)
[2024-06-02] MEDS: polyethylene glycoL 3350 17 GM POWD.PACK PO (08:06)
[2024-06-02] MEDS: SITagliptin Phosphate 100 MG TABLET PO (08:06)
[2024-06-02] MEDS: Fluticasone Propionate Nasal 16 GM SPRAY 1 SPRAY NOSTRIL-B ×2 (08:06→19:49)
[2024-06-02] MEDS: Empagliflozin 10 MG TABLET PO (08:06)
--- NOTE | 2024-06-02 08:17 | MHC.CM.PN ---
CM NOTE FOR 06/01: CM MET WITH PT WHO WAS UPSET OVER NOT BEING ABLE TO GO TO THE BANK. CM OFFERED SUPPORT AND REDIRECTION. SON AIDEN ARRIVED AND PT STATED TO THIS CM SHE DID NOT WANT A VISIT FROM HIM, HE IS NOT WANTED HERE . SON WAS INFORMED OF THIS AND ASKED TO LEAVE. SON WAS VERBALLY AGGRESSIVE TO THIS PROPOSAL COORDINATOR AND MD . SECURITY WAS CALLED AND SON LEFT WITHOUT INCIDENT. MESSAGE LEFT FOR DELIO LINDSEY REGARDING THIS. CM WILL CONTINUE TO FOLLOW
--- NOTE | 2024-06-02 09:38 | P.PNIM_ITS ---
Subjective Subjective Date of Service: 06/02/24 Interval History: Patient seen and examined, has tried several episode of agitation yesterday After his son visited her and try to take her away She is better today Physical Exam 2 Vital Signs: Vital Signs: Last Vital Signs Temp 98.1 F 06/02/24 07:23 Pulse 83 06/02/24 07:23 Resp 17 06/02/24 07:23 BP 131/67 06/02/24 07:23 Pulse Ox 97 06/02/24 07:23 O2 Del Method Room Air 06/02/24 07:23 BMI result Body Mass Index 24.5 General: oriented to self Resp: CTA bilateral CVS: S1,S2,RRR GI: +BS, NT, no distention Skin: No rash Neuro: motor grossly intact Psych: appropriate affect Objective Data Active Medications Acetaminophen (Acetaminophen 325 Mg Tablet) 650 mg PO Q4H PRN PRN Reason: headache or pain Last Admin: 05/19/24 20:33 Dose: 650 mg Acetaminophen/Butalbital/Caffeine (Butalb/Acetamin/Caff 50/325/40 Tablet) 1 tab PO Q4H PRN PRN Reason: Headache Last Admin: 06/02/24 03:12 Dose: 1 tab Documented By: LEIGHA Amitriptyline HCl (Amitriptyline Hcl 25 Mg Tablet) 25 mg PO BEDTIME [facility] Last Admin: 06/01/24 21:00 Dose: Not Given Documented By: LEIGHA Non-Admin Reason: Patient Refused Aspirin (Aspirin Enteric Coated 81 Mg Tablet.) 81 mg PO DAILY [facility] Last Admin: 06/02/24 08:06 Dose: 81 mg Documented By: JIMY Atorvastatin Calcium (Atorvastatin Calcium 10 Mg Tablet) 10 mg PO BEDTIME [facility] Last Admin: 06/01/24 20:40 Dose: 10 mg Documented By: LEIGHA Docusate Sodium (Docusate Sodium 100 Mg Capsule) 100 mg PO BID [facility] Last Admin: 06/02/24 08:06 Dose: 100 mg Documented By: JIMY Donepezil HCl (Donepezil Hcl 5 Mg Tablet) 5 mg PO BEDTIME [facility] Last Admin: 06/01/24 20:40 Dose: 5 mg Documented By: LEIGHA Empagliflozin (Empagliflozin 10 Mg Tablet) 10 mg PO DAILY [facility] Last Admin: 06/02/24 08:06 Dose: 10 mg Documented By: JIMY Enoxaparin Sodium (Enoxaparin Sodium 40 Mg/0.4 Ml Syringe) 40 mg SUBCUT Q24H [facility] Last Admin: 06/02/24 08:06 Dose: Not Given Documented By: JIMY Non-Admin Reason: Patient Refused Fluticasone Propionate (Fluticasone Propionate Nasal 16 Gm [place]) 1 spray NOSTRIL-B BID [facility] Last Admin: 06/02/24 08:06 Dose: 1 spray Documented By: JIMY Glipizide (Glipizide 10 Mg Tablet) 10 mg PO BID [facility] Last Admin: 06/02/24 08:05 Dose: 10 mg Documented By: JIMY Melatonin (Melatonin 3 Mg Tablet) 3 mg PO BEDTIME PRN PRN Reason: Insomnia Last Admin: 06/01/24 20:40 Dose: 3 mg Documented By: LEIGHA Multi-Ingred Medicated Throat [place] (Throat [place], Medicated 177 Ml Bottle) 1 spray MUCOUS MEM Q2H PRN PRN Reason: throat irritaion Last Admin: 05/30/24 13:05 Dose: 1 spray Documented By: COTMATIAS Nitroglycerin (Nitroglycerin 0.4 Mg Tab.Subl) 0.4 mg SUBLINGUAL Q5M PRN PRN Reason: angina Omeprazole (Omeprazole 20 Mg Capsule.Dr) 20 mg PO DAILY@0630 [facility] Last Admin: 06/02/24 05:33 Dose: 20 mg Documented By: LEIGHA Polyethylene Glycol (Polyethylene Glycol 3350 17 Gm Powd.Pack) 17 gm PO DAILY [facility] Last Admin: 06/02/24 08:06 Dose: 17 gm Documented By: JIMY Sitagliptin Phosphate (Sitagliptin Phosphate 100 Mg Tablet) 100 mg PO DAILY [facility] Last Admin: 06/02/24 08:06 Dose: 100 mg Documented By: JIMY Sodium Chloride (0.9 % Sodium Chloride Flush 3 Ml Syringe) 3 ml IVFLUSH QSHIFT [facility] Last Admin: 06/02/24 08:06 Dose: Not Given Documented By: JIMY Non-Admin Reason: No Access Trolamine Salicylate (Trolamine Salicylate 10 % Cream 141 Gm Tube) 1 appl TOPICAL BID PRN; Protocol PRN Reason: both shoulders Last Admin: 05/22/24 21:04 Dose: 1 appl Documented By: YAHIR Labs 06/01/24 07:12 06/01/24 07:12 Labs: Laboratory Results - last 24 hr 06/02/24 07:27 POC Glucose 90 Assessment and Plan (1) Cognitive impairment: Status: Acute (2) Glaucoma of both eyes: Status: Acute Plan 88yo F with vascular dementia, diabetes, hypertension, hyperlipidemia, and peptic ulcer disease presented with mechanical fall on 03/24/24 and found to have left foot fracture, and has since been awaiting safe placement pending conservatorship Vascular dementia -Reese Cognitive Assessment (MoCA) is 08/02 = Severe Cognitive Impairment -lacks capacity to make sound medical decision -stable, has guardian -Psych consult for behavioral issues DM2 Hba1c 7.7 continue GPZ, empagliflozin, sitagliptin Blood sugar improving since place on diabetic diet , follow blood sugars ,strongly rec to follow diabetic diet. L foot fx fractures > 8wk old, Ortho recommends boot, no intervention , WBAT, ambulate TID bilateral shoulder pain/likely due to osteoarthritis. on Aspercreme/Tylenol OT recommends ROM exercises. VTE ppx LMWH--she typically refuses, at signficantly high risk of of DVT Dispo: Ultimately LTC Need for inpt: Pending conservatorship and placement, has no legal guardian and lacks capacity Periodica labs check CBC, BMP 06/01, unremarkable Quality Stroke Does the patient have a stroke diagnosis?: No VTE Prior VTE?: No VTE Risk Level:: Medical - moderate - high VTE Device Contraindication: Treatment Not Indicated VTE Drug Contraindication: N/A - Med Ordered
[2024-06-02 14:57] VITALS: BP 131/69; PULSE 88; RESP 16; TEMP 36.4; O2SAT 99
[2024-06-02 19:30] VITALS: BP 156/72; PULSE 92; RESP 16; TEMP 36.6; O2SAT 98
[2024-06-02] MEDS: Atorvastatin Calcium 10 MG TABLET PO (19:47)
[2024-06-02] MEDS: Melatonin 3 MG TABLET PO (19:48)
[2024-06-02] MEDS: Amitriptyline HCl 25 MG TABLET PO (19:48)
[2024-06-02] MEDS: Donepezil HCl 5 MG TABLET PO (19:48)
[2024-06-03 07:19] VITALS: BP 129/60; PULSE 83; RESP 20; TEMP 36.8; O2SAT 97
[2024-06-03] MEDS: SITagliptin Phosphate 100 MG TABLET PO (07:36)
[2024-06-03] MEDS: Butalb/Acetamin/Caff 50/325/40 TABLET 1 TAB PO (07:36)
[2024-06-03] MEDS: glipiZIDE 10 MG TABLET PO ×2 (07:36→20:31)
[2024-06-03] MEDS: Aspirin Enteric Coated 81 MG TABLET.DR PO (07:36)
[2024-06-03] MEDS: Docusate Sodium 100 MG CAPSULE PO ×2 (07:36→20:31)
[2024-06-03] MEDS: Empagliflozin 10 MG TABLET PO (07:36)
[2024-06-03] MEDS: polyethylene glycoL 3350 17 GM POWD.PACK PO (07:37)
[2024-06-03] MEDS: Fluticasone Propionate Nasal 16 GM SPRAY 1 SPRAY NOSTRIL-B ×2 (07:37→20:35)
[2024-06-03 07:47] LABS: Glucose, Whole Blood 104 mg/dL (60-115)
--- NOTE | 2024-06-03 08:45 | P.PNIM_ITS ---
Subjective Subjective Date of Service: 06/03/24 Interval History: Patient seen and examined, awaiting placement no acute issues, Physical Exam 2 Vital Signs: Vital Signs: Last Vital Signs Temp 98.2 F 06/03/24 07:19 Pulse 83 06/03/24 07:19 Resp 20 06/03/24 07:19 BP 129/60 06/03/24 07:19 Pulse Ox 97 06/03/24 07:19 O2 Del Method Room Air 06/03/24 07:19 BMI result Body Mass Index 24.5 Const: Other: Gen: Awake alert, in no acute distress Lungs: clear to auscultation bilaterally Heart: regular rate and rhythm, no murmurs Abd: soft, non-tender, non-distended Ext: No edema/improving bilateral shoulder range of motion. Skin: warm/well-perfused Neuro: alert, no focal weakness Psych: impaired insight Objective Data Active Medications Acetaminophen (Acetaminophen 325 Mg Tablet) 650 mg PO Q4H PRN PRN Reason: headache or pain Last Admin: 05/19/24 20:33 Dose: 650 mg Acetaminophen/Butalbital/Caffeine (Butalb/Acetamin/Caff 50/325/40 Tablet) 1 tab PO Q4H PRN PRN Reason: Headache Last Admin: 06/03/24 07:36 Dose: 1 tab Documented By: JIMY Amitriptyline HCl (Amitriptyline Hcl 25 Mg Tablet) 25 mg PO BEDTIME [facility] Last Admin: 06/02/24 19:48 Dose: 25 mg Documented By: LEIGHA Aspirin (Aspirin Enteric Coated 81 Mg Tablet.) 81 mg PO DAILY [facility] Last Admin: 06/03/24 07:36 Dose: 81 mg Documented By: JIMY Atorvastatin Calcium (Atorvastatin Calcium 10 Mg Tablet) 10 mg PO BEDTIME [facility] Last Admin: 06/02/24 19:47 Dose: 10 mg Documented By: LEIGHA Docusate Sodium (Docusate Sodium 100 Mg Capsule) 100 mg PO BID [facility] Last Admin: 06/03/24 07:36 Dose: 100 mg Documented By: JIMY Donepezil HCl (Donepezil Hcl 5 Mg Tablet) 5 mg PO BEDTIME [facility] Last Admin: 06/02/24 19:48 Dose: 5 mg Documented By: LEIGHA Empagliflozin (Empagliflozin 10 Mg Tablet) 10 mg PO DAILY [facility] Last Admin: 06/03/24 07:36 Dose: 10 mg Documented By: JIMY Enoxaparin Sodium (Enoxaparin Sodium 40 Mg/0.4 Ml Syringe) 40 mg SUBCUT Q24H [facility] Last Admin: 06/03/24 07:32 Dose: Not Given Documented By: JIMY Non-Admin Reason: Patient Refused Fluticasone Propionate (Fluticasone Propionate Nasal 16 Gm [place]) 1 spray NOSTRIL-B BID [facility] Last Admin: 06/03/24 07:37 Dose: 1 spray Documented By: JIMY Glipizide (Glipizide 10 Mg Tablet) 10 mg PO BID [facility] Last Admin: 06/03/24 07:36 Dose: 10 mg Documented By: JIMY Melatonin (Melatonin 3 Mg Tablet) 3 mg PO BEDTIME PRN PRN Reason: Insomnia Last Admin: 06/02/24 19:48 Dose: 3 mg Documented By: LEIGHA Multi-Ingred Medicated Throat [place] (Throat [place], Medicated 177 Ml Bottle) 1 spray MUCOUS MEM Q2H PRN PRN Reason: throat irritaion Last Admin: 05/30/24 13:05 Dose: 1 spray Documented By: COTEMA Nitroglycerin (Nitroglycerin 0.4 Mg Tab.Subl) 0.4 mg SUBLINGUAL Q5M PRN PRN Reason: angina Omeprazole (Omeprazole 20 Mg Capsule.Dr) 20 mg PO DAILY@0630 [facility] Last Admin: 06/03/24 05:31 Dose: Not Given Documented By: LEIGHA Non-Admin Reason: pt suspicious Polyethylene Glycol (Polyethylene Glycol 3350 17 Gm Powd.Pack) 17 gm PO DAILY [facility] Last Admin: 06/03/24 07:37 Dose: 17 gm Documented By: JIMY Sitagliptin Phosphate (Sitagliptin Phosphate 100 Mg Tablet) 100 mg PO DAILY [facility] Last Admin: 06/03/24 07:36 Dose: 100 mg Documented By: JIMY Sodium Chloride (0.9 % Sodium Chloride Flush 3 Ml Syringe) 3 ml IVFLUSH QSHIFT [facility] Last Admin: 06/03/24 07:32 Dose: Not Given Documented By: JIMY Non-Admin Reason: No Access Trolamine Salicylate (Trolamine Salicylate 10 % Cream 141 Gm Tube) 1 appl TOPICAL BID PRN; Protocol PRN Reason: both shoulders Last Admin: 05/22/24 21:04 Dose: 1 appl Documented By: YAHIR Labs 06/01/24 07:12 06/01/24 07:12 Labs: Laboratory Results - last 24 hr 06/03/24 07:24 POC Glucose 104 Assessment and Plan (1) Cognitive impairment: Status: Acute (2) Glaucoma of both eyes: Status: Acute Plan 88yo F with vascular dementia, diabetes, hypertension, hyperlipidemia, and peptic ulcer disease presented with mechanical fall on 03/24/24 and found to have left foot fracture, and has since been awaiting safe placement pending conservatorship Vascular dementia -Barker Cognitive Assessment (MoCA) is 08/02 = Severe Cognitive Impairment -lacks capacity to make sound medical decision -stable, has guardian -Psych input noted DM2--conrolled Hba1c 7.7 continue GPZ, empagliflozin, sitagliptin Follow BS L foot fx--> 8 wks, Ortho recommends boot, no intervention, WBAT. She ambulates well with walker bilateral shoulder pain/likely due to osteoarthritis. on Aspercreme/Tylenol OT recommends ROM exercises. VTE ppx LMWH--she typically refuses, but notes that she ambulates with staff Dispo: Ultimately LTC Need for inpt: Pending conservatorship and placement, has a legal guardian but lacks capacity Periodic labs check, CBC, BMP 06/01, unremarkable Quality Stroke Does the patient have a stroke diagnosis?: No VTE Prior VTE?: No VTE Risk Level:: Medical - moderate - high VTE Device Contraindication: Treatment Not Indicated VTE Drug Contraindication: N/A - Med Ordered
[2024-06-03 15:10] VITALS: BP 116/63; PULSE 87; RESP 16; TEMP 36.6; O2SAT 98
[2024-06-03 20:15] VITALS: BP 118/57; PULSE 80; RESP 16; TEMP 36.2; O2SAT 95
[2024-06-03] MEDS: Melatonin 3 MG TABLET PO (20:30)
[2024-06-03] MEDS: Atorvastatin Calcium 10 MG TABLET PO (20:31)
[2024-06-03] MEDS: Donepezil HCl 5 MG TABLET PO (20:31)
[2024-06-04] MEDS: Omeprazole 20 MG CAPSULE.DR PO (06:04)
[2024-06-04 09:50] VITALS: BP 144/99; PULSE 108; O2SAT 96
--- NOTE | 2024-06-04 10:14 | PC.NURSE ---
Pt had unwitnessed fall at 0900. Staff in room seconds after, pt stated she did not hit her head, was not injured. Dr. Garcia to bedside to assess. CT abd/pelvis, head and cervical spine ordered as well as 1:1 sitter. DAILY Carmichael to take over care of this pt. report given.
[2024-06-04] MEDS: OLANZapine 10 MG VIAL 2.5 MG IM (10:19)
--- NOTE | 2024-06-04 11:37 | HO.PM.IMPN ---
Subjective Subjective Date of Service: 06/04/24 Interval History: Pt was trying to get out of bed this morning and fell and stated she hit her head, there were no obvious injuries Physical Exam Vital Signs: Vital Signs: Last Vital Signs Temp 97.2 F 06/03/24 20:15 Pulse 108 H 06/04/24 09:50 Resp 16 06/03/24 20:15 BP 144/99 H 06/04/24 09:50 Pulse Ox 96 06/04/24 09:50 O2 Del Method Room Air 06/04/24 09:50 BMI result Body Mass Index 24.5 Const: Other: General: alert and oriented to self only HEENT: normal appearing, no laceration and no hematoma Resp: CTA bilateral CVS: S1,S2,RRR GI: +BS, NT, no distention Skin: No rash, no skin tear, no bruse MSK: hip normal range of motion without pain Neuro: motor grossly intact, leg movement intack, strenght equal bilateral Psych: appropriate affect Objective Data Active Medications Acetaminophen (Acetaminophen 325 Mg Tablet) 650 mg PO Q4H PRN PRN Reason: headache or pain Last Admin: 05/19/24 20:33 Dose: 650 mg Acetaminophen/Butalbital/Caffeine (Butalb/Acetamin/Caff 50/325/40 Tablet) 1 tab PO Q4H PRN PRN Reason: Headache Last Admin: 06/03/24 07:36 Dose: 1 tab Documented By: JIMY Amitriptyline HCl (Amitriptyline Hcl 25 Mg Tablet) 25 mg PO BEDTIME [facility] Last Admin: 06/03/24 20:36 Dose: Not Given Documented By: MERI Non-Admin Reason: Patient Refused Aspirin (Aspirin Enteric Coated 81 Mg Tablet.) 81 mg PO DAILY [facility] Last Admin: 06/04/24 09:17 Dose: Not Given Documented By: JIMY Non-Admin Reason: Patient Refused Atorvastatin Calcium (Atorvastatin Calcium 10 Mg Tablet) 10 mg PO BEDTIME [facility] Last Admin: 06/03/24 20:31 Dose: 10 mg Documented By: MERI Docusate Sodium (Docusate Sodium 100 Mg Capsule) 100 mg PO BID [facility] Last Admin: 06/04/24 09:17 Dose: Not Given Documented By: JIMY Non-Admin Reason: Patient Refused Donepezil HCl (Donepezil Hcl 5 Mg Tablet) 5 mg PO BEDTIME [facility] Last Admin: 06/03/24 20:31 Dose: 5 mg Documented By: MERI Empagliflozin (Empagliflozin 10 Mg Tablet) 10 mg PO DAILY [facility] Last Admin: 06/04/24 09:17 Dose: Not Given Documented By: JIMY Non-Admin Reason: Patient Refused Enoxaparin Sodium (Enoxaparin Sodium 40 Mg/0.4 Ml Syringe) 40 mg SUBCUT Q24H [facility] Last Admin: 06/04/24 09:16 Dose: Not Given Documented By: JIMY Non-Admin Reason: Patient Refused Fluticasone Propionate (Fluticasone Propionate Nasal 16 Gm [place]) 1 spray NOSTRIL-B BID [facility] Last Admin: 06/04/24 09:17 Dose: Not Given Documented By: JIMY Non-Admin Reason: Patient Refused Glipizide (Glipizide 10 Mg Tablet) 10 mg PO BID [facility] Last Admin: 06/04/24 09:17 Dose: Not Given Documented By: JIMY Non-Admin Reason: Patient Refused Melatonin (Melatonin 3 Mg Tablet) 3 mg PO BEDTIME PRN PRN Reason: Insomnia Last Admin: 06/03/24 20:30 Dose: 3 mg Documented By: MERI Multi-Ingred Medicated Throat [place] (Throat [place], Medicated 177 Ml Bottle) 1 spray MUCOUS MEM Q2H PRN PRN Reason: throat irritaion Last Admin: 05/30/24 13:05 Dose: 1 spray Documented By: COTEMA Nitroglycerin (Nitroglycerin 0.4 Mg Tab.Subl) 0.4 mg SUBLINGUAL Q5M PRN PRN Reason: angina Omeprazole (Omeprazole 20 Mg Capsule.Dr) 20 mg PO DAILY@0630 [facility] Last Admin: 06/04/24 06:04 Dose: 20 mg Documented By: MERI Polyethylene Glycol (Polyethylene Glycol 3350 17 Gm Powd.Pack) 17 gm PO DAILY [facility] Last Admin: 06/04/24 09:17 Dose: Not Given Documented By: JIMY Non-Admin Reason: Patient Refused Sitagliptin Phosphate (Sitagliptin Phosphate 100 Mg Tablet) 100 mg PO DAILY [facility] Last Admin: 06/04/24 09:17 Dose: Not Given Documented By: JIMY Non-Admin Reason: Patient Refused Sodium Chloride (0.9 % Sodium Chloride Flush 3 Ml Syringe) 3 ml IVFLUSH QSHIFT [facility] Last Admin: 06/04/24 09:16 Dose: Not Given Documented By: JIMY Non-Admin Reason: No Access Trolamine Salicylate (Trolamine Salicylate 10 % Cream 141 Gm Tube) 1 appl TOPICAL BID PRN; Protocol PRN Reason: both shoulders Last Admin: 05/22/24 21:04 Dose: 1 appl Documented By: YAHIR Labs 06/01/24 07:12 06/01/24 07:12 Assessment and Plan (1) Cognitive impairment: Status: Acute (2) Glaucoma of both eyes: Status: Acute Plan 88yo F with vascular dementia, diabetes, hypertension, hyperlipidemia, and peptic ulcer disease presented with mechanical fall on 03/24/24 and found to have left foot fracture, and has since been awaiting safe placement pending conservatorship Mechanical fall, trying to get out of bed..exam: physical injury noted. -CT of head, neck and hip done and results pending. -closer monitoring with 1:1 besides camera. Vascular dementia -[place] Cognitive Assessment (MoCA) is 08/02 = Severe Cognitive Impairment -lacks capacity to make sound medical decision -stable, has guardian -Psych to advises on med management as she is becoming increasingly more agitated and agresive DM2--conrolled Hba1c 7.7 continue GPZ, empagliflozin, sitagliptin Follow BS L foot fx--> 8 wks, Ortho recommends boot, no intervention, WBAT. She ambulates well with walker bilateral shoulder pain/likely due to osteoarthritis. on Aspercreme/Tylenol OT recommends ROM exercises. VTE ppx LMWH--she typically refuses, but notes that she ambulates with staff Dispo: Ultimately LTC Need for inpt: Pending conservatorship and placement, has a legal guardian but lacks capacity Periodic labs check, CBC, BMP 06/01, unremarkable Quality Stroke Does the patient have a stroke diagnosis?: No VTE Prior VTE?: No VTE Risk Level:: Medical - moderate - high VTE Device Contraindication: Treatment Not Indicated VTE Drug Contraindication: N/A - Med Ordered
--- NOTE | 2024-06-04 11:50 | MHC.CM.PN ---
PT AWAITING LTC PLACEMENT GUARDIAN AND CONSERVATOR NOW IN PLACE, HOWEVER MH APPLICATION NOT YET COMPLETE
[2024-06-04 15:29] VITALS: BP 127/60; PULSE 90; RESP 18; TEMP 36.5; O2SAT 97
[2024-06-04 16:32] LABS: Glucose, Whole Blood 256 mg/dL (60-115)
[2024-06-04] MEDS: Insulin Lispro 100 UNIT/ML 3 ML VIAL SUBCUT ×2 (17:07→20:22)
[2024-06-04] MEDS: Butalb/Acetamin/Caff 50/325/40 TABLET 1 TAB PO (19:23)
[2024-06-04] MEDS: glipiZIDE 10 MG TABLET PO (20:18)
[2024-06-04] MEDS: Donepezil HCl 5 MG TABLET PO (20:18)
[2024-06-04] MEDS: Atorvastatin Calcium 10 MG TABLET PO (20:18)
[2024-06-04] MEDS: Docusate Sodium 100 MG CAPSULE PO (20:18)
[2024-06-04 20:27] LABS: Glucose, Whole Blood 185 mg/dL (60-115)
[2024-06-04 23:04] VITALS: BP 135/68; PULSE 72; RESP 18; TEMP 36.2; O2SAT 98
[2024-06-05] MEDS: Omeprazole 20 MG CAPSULE.DR PO (06:19)
[2024-06-05 07:15] VITALS: BP 133/64; PULSE 82; RESP 20; TEMP 36.2; O2SAT 97
[2024-06-05 07:16] LABS: Glucose, Whole Blood 104 mg/dL (60-115)
[2024-06-05] MEDS: Butalb/Acetamin/Caff 50/325/40 TABLET 1 TAB PO (07:19)
[2024-06-05 08:00] VITALS: O2SAT 97
[2024-06-05] MEDS: SITagliptin Phosphate 100 MG TABLET PO (08:00)
[2024-06-05] MEDS: glipiZIDE 10 MG TABLET PO (08:01)
[2024-06-05] MEDS: Aspirin Enteric Coated 81 MG TABLET.DR PO (08:01)
[2024-06-05] MEDS: Docusate Sodium 100 MG CAPSULE PO ×2 (08:01→20:14)
[2024-06-05] MEDS: Empagliflozin 10 MG TABLET PO (08:01)
[2024-06-05] MEDS: polyethylene glycoL 3350 17 GM POWD.PACK PO (08:03)
--- NOTE | 2024-06-05 09:26 | HO.PM.IMPN ---
Subjective Subjective Date of Service: 06/05/24 Interval History: Seen/examined, awaiting placement fell yesterday without injury, seems more cooperative this morning Physical Exam Vital Signs: Vital Signs: Last Vital Signs Temp 97.2 F 06/05/24 07:15 Pulse 82 06/05/24 07:15 Resp 20 06/05/24 07:15 BP 133/64 06/05/24 07:15 Pulse Ox 97 06/05/24 07:15 O2 Del Method Room Air 06/05/24 07:15 BMI result Body Mass Index 24.5 Const: Other: General: alert and oriented to self only HEENT: normal appearing, Resp: CTA bilateral CVS: S1,S2,RRR GI: +BS, NT, no distention Skin: No rash, no skin tear, no bruse MSK: hip normal range of motion without pain Neuro: motor grossly intact, leg movement intack, strenght equal bilateral Psych: appropriate affect Objective Data Active Medications Acetaminophen (Acetaminophen 325 Mg Tablet) 650 mg PO Q4H PRN PRN Reason: headache or pain Last Admin: 05/19/24 20:33 Dose: 650 mg Acetaminophen/Butalbital/Caffeine (Butalb/Acetamin/Caff 50/325/40 Tablet) 1 tab PO Q4H PRN PRN Reason: Headache Last Admin: 06/05/24 07:19 Dose: 1 tab Documented By: JACOB Amitriptyline HCl (Amitriptyline Hcl 25 Mg Tablet) 25 mg PO BEDTIME [facility] Last Admin: 06/04/24 20:25 Dose: Not Given Documented By: FAUSTINO Non-Admin Reason: Patient Refused Aspirin (Aspirin Enteric Coated 81 Mg Tablet.) 81 mg PO DAILY [facility] Last Admin: 06/05/24 08:01 Dose: 81 mg Documented By: JACOB Atorvastatin Calcium (Atorvastatin Calcium 10 Mg Tablet) 10 mg PO BEDTIME [facility] Last Admin: 06/04/24 20:18 Dose: 10 mg Documented By: FAUSTINO Docusate Sodium (Docusate Sodium 100 Mg Capsule) 100 mg PO BID [facility] Last Admin: 06/05/24 08:01 Dose: 100 mg Documented By: JACOB Donepezil HCl (Donepezil Hcl 5 Mg Tablet) 5 mg PO BEDTIME [facility] Last Admin: 06/04/24 20:18 Dose: 5 mg Documented By: FAUSTINO Empagliflozin (Empagliflozin 10 Mg Tablet) 10 mg PO DAILY [facility] Last Admin: 06/05/24 08:01 Dose: 10 mg Documented By: JACOB Enoxaparin Sodium (Enoxaparin Sodium 40 Mg/0.4 Ml Syringe) 40 mg SUBCUT Q24H [facility] Last Admin: 06/05/24 08:04 Dose: Not Given Documented By: JACOB Non-Admin Reason: Patient Refused Fluticasone Propionate (Fluticasone Propionate Nasal 16 Gm [place]) 1 spray NOSTRIL-B BID [facility] Last Admin: 06/05/24 08:05 Dose: Not Given Documented By: JACOB Non-Admin Reason: Patient Refused Glipizide (Glipizide 10 Mg Tablet) 10 mg PO BID [facility] Last Admin: 06/05/24 08:01 Dose: 10 mg Documented By: JACOB Glucose (Glucose Gel 15 Gm Gel..Gram.) 15 gm PO Q15M PRN; Protocol PRN Reason: per Hypoglycemia Standing Ord. Dextrose (D10) 250 mls @ 750 mls/hr IV Q15M PRN; Protocol PRN Reason: per Hypoglycemia Standing Ord. Insulin Human Lispro (Insulin Lispro 100 Unit/Ml 3 Ml Vial) 0 unit SUBCUT QIDACHS [facility]; Protocol Last Admin: 06/05/24 07:23 Dose: Not Given Documented By: JACOB Non-Admin Reason: No Insulin Coverage Melatonin (Melatonin 3 Mg Tablet) 3 mg PO BEDTIME PRN PRN Reason: Insomnia Last Admin: 06/03/24 20:30 Dose: 3 mg Documented By: MERI Multi-Ingred Medicated Throat [place] (Throat [place], Medicated 177 Ml Bottle) 1 spray MUCOUS MEM Q2H PRN PRN Reason: throat irritaion Last Admin: 05/30/24 13:05 Dose: 1 spray Documented By: COTEMA Nitroglycerin (Nitroglycerin 0.4 Mg Tab.Subl) 0.4 mg SUBLINGUAL Q5M PRN PRN Reason: angina Omeprazole (Omeprazole 20 Mg Capsule.Dr) 20 mg PO DAILY@0630 [facility] Last Admin: 06/05/24 06:19 Dose: 20 mg Documented By: FAUSTINO Polyethylene Glycol (Polyethylene Glycol 3350 17 Gm Powd.Pack) 17 gm PO DAILY [facility] Last Admin: 06/05/24 08:03 Dose: 17 gm Documented By: JACOB Sitagliptin Phosphate (Sitagliptin Phosphate 100 Mg Tablet) 100 mg PO DAILY [facility] Last Admin: 06/05/24 08:00 Dose: 100 mg Documented By: JACOB Sodium Chloride (0.9 % Sodium Chloride Flush 3 Ml Syringe) 3 ml IVFLUSH QSHIFT [facility] Last Admin: 06/05/24 07:47 Dose: Not Given Documented By: JACOB Non-Admin Reason: No Access Trolamine Salicylate (Trolamine Salicylate 10 % Cream 141 Gm Tube) 1 appl TOPICAL BID PRN; Protocol PRN Reason: both shoulders Last Admin: 05/22/24 21:04 Dose: 1 appl Documented By: YAHIR Labs 06/01/24 07:12 06/01/24 07:12 Labs: Laboratory Results - last 24 hr 06/04/24 06/04/24 06/05/24 16:28 20:18 07:12 POC Glucose 256 H 185 H 104 Assessment and Plan (1) Cognitive impairment: Status: Acute (2) Glaucoma of both eyes: Status: Acute Plan 88yo F with vascular dementia, diabetes, hypertension, hyperlipidemia, and peptic ulcer disease presented with mechanical fall on 03/24/24 and found to have left foot fracture, and has since been awaiting safe placement pending conservatorship Mechanical fall on 06/04 trying to get out of bed, no inju -CT of head, neck and hip no acute injury -closer monitoring with 1:1, besides camera. Vascular dementia -[place] Cognitive Assessment (MoCA) is 08/02 = Severe Cognitive Impairment -lacks capacity to make sound medical decision -stable, has guardian -Psych to advises on med management as she is becoming increasingly more agitated and agresive DM2--conrolled Hba1c 7.7 continue GPZ, empagliflozin, sitagliptin, add SSI Follow BS L foot fx--> 8 wks, Ortho recommends boot, no intervention, WBAT. She ambulates well with walker bilateral shoulder pain/likely due to osteoarthritis. on Aspercreme/Tylenol OT recommends ROM exercises. VTE ppx LMWH--she typically refuses, but notes that she ambulates with staff Dispo: Ultimately LTC Need for inpt: placement pending Periodic labs check, CBC, BMP 06/01, unremarkable Quality Stroke Does the patient have a stroke diagnosis?: No VTE Prior VTE?: No VTE Risk Level:: Medical - moderate - high VTE Device Contraindication: Treatment Not Indicated VTE Drug Contraindication: N/A - Med Ordered
[2024-06-05 16:00] VITALS: BP 130/58; PULSE 90; RESP 18; TEMP 36.9; O2SAT 97
[2024-06-05 16:26] LABS: Glucose, Whole Blood 268 mg/dL (60-115)
[2024-06-05] MEDS: Insulin Lispro 100 UNIT/ML 3 ML VIAL SUBCUT (17:04)
[2024-06-05 19:39] VITALS: BP 128/60; PULSE 90; RESP 22; TEMP 36.6; O2SAT 97
[2024-06-05 20:14] LABS: Glucose, Whole Blood 85 mg/dL (60-115)
[2024-06-05] MEDS: Atorvastatin Calcium 10 MG TABLET PO (20:14)
[2024-06-05] MEDS: Donepezil HCl 5 MG TABLET PO (20:14)
[2024-06-05] MEDS: Trolamine Salicylate 10 % Cream 141 gm Tube 1 APPL TOPICAL (20:15)
[2024-06-06] VITALS: BP 136/65; PULSE 82; RESP 20; TEMP 36.4; O2SAT 98
[2024-06-06] MEDS: Omeprazole 20 MG CAPSULE.DR PO (05:41)
[2024-06-06 07:01] VITALS: BP 153/73; PULSE 93; RESP 17; TEMP 36.2; O2SAT 97
[2024-06-06] MEDS: Butalb/Acetamin/Caff 50/325/40 TABLET 1 TAB PO (07:10)
[2024-06-06 07:39] LABS: Glucose, Whole Blood 193 mg/dL (60-115)
[2024-06-06] MEDS: SITagliptin Phosphate 100 MG TABLET PO (08:14)
[2024-06-06] MEDS: Aspirin Enteric Coated 81 MG TABLET.DR PO (08:14)
[2024-06-06] MEDS: Docusate Sodium 100 MG CAPSULE PO ×2 (08:14→20:59)
[2024-06-06] MEDS: glipiZIDE 10 MG TABLET PO ×2 (08:15→20:59)
[2024-06-06] MEDS: Empagliflozin 10 MG TABLET PO (08:15)
[2024-06-06] MEDS: Insulin Lispro 100 UNIT/ML 3 ML VIAL SUBCUT ×4 (08:16→20:58)
--- NOTE | 2024-06-06 09:35 | P.PNIM_ITS ---
Subjective Subjective Date of Service: 06/06/24 Interval History: Seen/examined, awaiting placement In her usual state, talkative, wanting to go to her appartment wants some constipation medication that is brown, not sure what that is, refusing other alternatives Physical Exam 2 Vital Signs: Vital Signs: Last Vital Signs Temp 97.2 F 06/06/24 07:01 Pulse 93 06/06/24 07:01 Resp 17 06/06/24 07:01 BP 153/73 H 06/06/24 07:01 Pulse Ox 97 06/06/24 07:01 O2 Del Method Room Air 06/06/24 07:01 BMI result Body Mass Index 24.5 Const: Other: General: alert and oriented to self only HEENT: normal appearing, Resp: CTA bilateral CVS: S1,S2,RRR GI: +BS, NT, no distention Skin: No rash, no skin tear, no bruse MSK: hip normal range of motion without pain Neuro: motor grossly intact, leg movement intack, strenght equal bilateral Psych: appropriate affect Objective Data Active Medications Acetaminophen (Acetaminophen 325 Mg Tablet) 650 mg PO Q4H PRN PRN Reason: headache or pain Last Admin: 05/19/24 20:33 Dose: 650 mg Acetaminophen/Butalbital/Caffeine (Butalb/Acetamin/Caff 50/325/40 Tablet) 1 tab PO Q4H PRN PRN Reason: Headache Last Admin: 06/06/24 07:10 Dose: 1 tab Documented By: JACOB Amitriptyline HCl (Amitriptyline Hcl 25 Mg Tablet) 25 mg PO BEDTIME [facility] Last Admin: 06/05/24 20:23 Dose: Not Given Documented By: FAUSTINO Non-Admin Reason: Patient Refused Aspirin (Aspirin Enteric Coated 81 Mg Tablet.) 81 mg PO DAILY [facility] Last Admin: 06/06/24 08:14 Dose: 81 mg Documented By: JACOB Atorvastatin Calcium (Atorvastatin Calcium 10 Mg Tablet) 10 mg PO BEDTIME [facility] Last Admin: 06/05/24 20:14 Dose: 10 mg Documented By: FAUSTINO Docusate Sodium (Docusate Sodium 100 Mg Capsule) 100 mg PO BID [facility] Last Admin: 06/06/24 08:14 Dose: 100 mg Documented By: JACOB Donepezil HCl (Donepezil Hcl 5 Mg Tablet) 5 mg PO BEDTIME [facility] Last Admin: 06/05/24 20:14 Dose: 5 mg Documented By: FAUSTINO Empagliflozin (Empagliflozin 10 Mg Tablet) 10 mg PO DAILY [facility] Last Admin: 06/06/24 08:15 Dose: 10 mg Documented By: JACOB Enoxaparin Sodium (Enoxaparin Sodium 40 Mg/0.4 Ml Syringe) 40 mg SUBCUT Q24H [facility] Last Admin: 06/06/24 07:44 Dose: Not Given Documented By: JACOB Non-Admin Reason: Patient Refused Fluticasone Propionate (Fluticasone Propionate Nasal 16 Gm [place]) 1 spray NOSTRIL-B BID [facility] Last Admin: 06/06/24 08:26 Dose: Not Given Documented By: JACOB Non-Admin Reason: Patient Refused Glipizide (Glipizide 10 Mg Tablet) 10 mg PO BID [facility] Last Admin: 06/06/24 08:15 Dose: 10 mg Documented By: JACOB Glucose (Glucose Gel 15 Gm Gel..Gram.) 15 gm PO Q15M PRN; Protocol PRN Reason: per Hypoglycemia Standing Ord. Dextrose (D10) 250 mls @ 750 mls/hr IV Q15M PRN; Protocol PRN Reason: per Hypoglycemia Standing Ord. Insulin Human Lispro (Insulin Lispro 100 Unit/Ml 3 Ml Vial) 0 unit SUBCUT QIDACHS [facility]; Protocol Last Admin: 06/06/24 08:16 Dose: 2 unit Documented By: JACOB Melatonin (Melatonin 3 Mg Tablet) 3 mg PO BEDTIME PRN PRN Reason: Insomnia Last Admin: 06/03/24 20:30 Dose: 3 mg Documented By: MERI Multi-Ingred Medicated Throat [place] (Throat [place], Medicated 177 Ml Bottle) 1 spray MUCOUS MEM Q2H PRN PRN Reason: throat irritaion Last Admin: 05/30/24 13:05 Dose: 1 spray Documented By: COTEMA Nitroglycerin (Nitroglycerin 0.4 Mg Tab.Subl) 0.4 mg SUBLINGUAL Q5M PRN PRN Reason: angina Omeprazole (Omeprazole 20 Mg Capsule.Dr) 20 mg PO DAILY@0630 [facility] Last Admin: 06/06/24 05:41 Dose: 20 mg Documented By: FAUSTINO Polyethylene Glycol (Polyethylene Glycol 3350 17 Gm Powd.Pack) 17 gm PO DAILY [facility] Last Admin: 06/06/24 08:26 Dose: Not Given Documented By: JACOB Non-Admin Reason: Patient Refused Senna (Sennosides 8.6 Mg Tablet) 8.6 mg PO DAILY PRN PRN Reason: Constipation Sitagliptin Phosphate (Sitagliptin Phosphate 100 Mg Tablet) 100 mg PO DAILY [facility] Last Admin: 06/06/24 08:14 Dose: 100 mg Documented By: JACOB Sodium Chloride (0.9 % Sodium Chloride Flush 3 Ml Syringe) 3 ml IVFLUSH QSHIFT [facility] Last Admin: 06/06/24 07:43 Dose: Not Given Documented By: JACOB Non-Admin Reason: No Access Trolamine Salicylate (Trolamine Salicylate 10 % Cream 141 Gm Tube) 1 appl TOPICAL BID PRN; Protocol PRN Reason: both shoulders Last Admin: 06/05/24 20:15 Dose: 1 appl Documented By: FAUSTINO Labs 06/01/24 07:12 06/01/24 07:12 Labs: Laboratory Results - last 24 hr 06/05/24 06/05/24 06/06/24 16:23 20:05 07:35 POC Glucose 268 H 85 193 H Assessment and Plan (1) Cognitive impairment: Status: Acute (2) Glaucoma of both eyes: Status: Acute Plan 88yo F with vascular dementia, diabetes, hypertension, hyperlipidemia, and peptic ulcer disease presented with mechanical fall on 03/24/24 and found to have left foot fracture, and has since been awaiting safe placement pending conservatorship Mechanical fall on 06/04 trying to get out of bed, no inju -CT of head, neck and hip no acute injury -closer monitoring with 1:1, besides camera. Vascular dementia -[place] Cognitive Assessment (MoCA) is 08/02 = Severe Cognitive Impairment -lacks capacity to make sound medical decision -stable, has guardian -Psych to advises on med management as she is becoming increasingly more agitated and agresive DM2--conrolled Hba1c 7.7 continue GPZ, empagliflozin, sitagliptin, add SSI Follow BS L foot fx--> 8 wks, Ortho recommends boot, no intervention, WBAT. She ambulates well with walker bilateral shoulder pain/likely due to osteoarthritis. on Aspercreme/Tylenol OT recommends ROM exercises. Constipation--try lactulose VTE ppx LMWH--she typically refuses, but notes that she ambulates with staff Dispo: Ultimately LTC Need for inpt: placement pending Periodic labs check, CBC, BMP 06/01, unremarkable Quality Stroke Does the patient have a stroke diagnosis?: No VTE Prior VTE?: No VTE Risk Level:: Medical - moderate - high VTE Device Contraindication: Treatment Not Indicated VTE Drug Contraindication: N/A - Med Ordered
[2024-06-06 11:53] LABS: Glucose, Whole Blood 189 mg/dL (60-115)
[2024-06-06 16:00] VITALS: BP 138/62; PULSE 86; RESP 18; TEMP 36.6; O2SAT 97
[2024-06-06 16:13] LABS: Glucose, Whole Blood 213 mg/dL (60-115)
[2024-06-06 19:13] VITALS: BP 126/58; PULSE 89; RESP 18; TEMP 36.2; O2SAT 97
[2024-06-06 20:20] LABS: Glucose, Whole Blood 176 mg/dL (60-115)
[2024-06-06] MEDS: Atorvastatin Calcium 10 MG TABLET PO (20:59)
[2024-06-06] MEDS: Donepezil HCl 5 MG TABLET PO (20:59)
[2024-06-07 00:02] VITALS: BP 164/80; PULSE 80; RESP 16; TEMP 36.4; O2SAT 98
[2024-06-07] MEDS: Sennosides 8.6 MG TABLET PO (04:25)
[2024-06-07] MEDS: Butalb/Acetamin/Caff 50/325/40 TABLET 1 TAB PO ×2 (04:30→19:31)
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
[2024-06-07] MEDS: Omeprazole 20 MG CAPSULE.DR PO (06:23)
[2024-06-07 07:24] VITALS: BP 137/62; PULSE 81; RESP 16; TEMP 36.6; O2SAT 99
[2024-06-07 07:57] LABS: Glucose, Whole Blood 111 mg/dL (60-115)
[2024-06-07] MEDS: Aspirin Enteric Coated 81 MG TABLET.DR PO (09:01)
[2024-06-07] MEDS: glipiZIDE 10 MG TABLET PO ×2 (09:01→19:31)
[2024-06-07] MEDS: Empagliflozin 10 MG TABLET PO (09:01)
[2024-06-07] MEDS: Docusate Sodium 100 MG CAPSULE PO ×2 (09:01→19:31)
[2024-06-07] MEDS: SITagliptin Phosphate 100 MG TABLET PO (09:01)
[2024-06-07] MEDS: Fluticasone Propionate Nasal 16 GM SPRAY 1 SPRAY NOSTRIL-B (09:04)
--- NOTE | 2024-06-07 11:18 | P.PNIM_ITS ---
Subjective Subjective Date of Service: 06/07/24 Interval History: Seen/examined, awaiting placement Pt has no new issues, other than still talking about leaving vitals stable Physical Exam 2 Vital Signs: Vital Signs: Last Vital Signs Temp 97.8 F 06/07/24 07:24 Pulse 81 06/07/24 07:24 Resp 16 06/07/24 07:24 BP 137/62 06/07/24 07:24 Pulse Ox 99 06/07/24 07:24 O2 Del Method Room Air 06/07/24 07:24 BMI result Body Mass Index 24.5 Const: Other: General: alert and oriented to self only HEENT: normal appearing, Resp: CTA bilateral CVS: S1,S2,RRR GI: +BS, NT, no distention Skin: No rash, no skin tear, no bruse MSK: hip normal range of motion without pain Neuro: motor grossly intact, leg movement intack, strenght equal bilateral Psych: appropriate affect Objective Data Active Medications Acetaminophen (Acetaminophen 325 Mg Tablet) 650 mg PO Q4H PRN PRN Reason: headache or pain Last Admin: 05/19/24 20:33 Dose: 650 mg Acetaminophen/Butalbital/Caffeine (Butalb/Acetamin/Caff 50/325/40 Tablet) 1 tab PO Q4H PRN PRN Reason: Headache Last Admin: 06/07/24 04:30 Dose: 1 tab Documented By: DONG Amitriptyline HCl (Amitriptyline Hcl 25 Mg Tablet) 25 mg PO BEDTIME [facility] Last Admin: 06/06/24 21:01 Dose: Not Given Documented By: DONG Non-Admin Reason: Patient Refused Aspirin (Aspirin Enteric Coated 81 Mg Tablet.) 81 mg PO DAILY [facility] Last Admin: 06/07/24 09:01 Dose: 81 mg Documented By: CARLTON Atorvastatin Calcium (Atorvastatin Calcium 10 Mg Tablet) 10 mg PO BEDTIME [facility] Last Admin: 06/06/24 20:59 Dose: 10 mg Documented By: DONG Docusate Sodium (Docusate Sodium 100 Mg Capsule) 100 mg PO BID [facility] Last Admin: 06/07/24 09:01 Dose: 100 mg Documented By: CARLTON Donepezil HCl (Donepezil Hcl 5 Mg Tablet) 5 mg PO BEDTIME [facility] Last Admin: 06/06/24 20:59 Dose: 5 mg Documented By: DONG Empagliflozin (Empagliflozin 10 Mg Tablet) 10 mg PO DAILY [facility] Last Admin: 06/07/24 09:01 Dose: 10 mg Documented By: CARLTON Enoxaparin Sodium (Enoxaparin Sodium 40 Mg/0.4 Ml Syringe) 40 mg SUBCUT Q24H [facility] Last Admin: 06/07/24 09:05 Dose: Not Given Documented By: CARLTON Non-Admin Reason: Patient Refused Fluticasone Propionate (Fluticasone Propionate Nasal 16 Gm [place]) 1 spray NOSTRIL-B BID [facility] Last Admin: 06/07/24 09:04 Dose: 1 spray Documented By: CARLTON Glipizide (Glipizide 10 Mg Tablet) 10 mg PO BID [facility] Last Admin: 06/07/24 09:01 Dose: 10 mg Documented By: CARLTON Glucose (Glucose Gel 15 Gm Gel..Gram.) 15 gm PO Q15M PRN; Protocol PRN Reason: per Hypoglycemia Standing Ord. Dextrose (D10) 250 mls @ 750 mls/hr IV Q15M PRN; Protocol PRN Reason: per Hypoglycemia Standing Ord. Insulin Human Lispro (Insulin Lispro 100 Unit/Ml 3 Ml Vial) 0 unit SUBCUT QIDACHS [facility]; Protocol Last Admin: 06/07/24 07:59 Dose: Not Given Documented By: CARLTON Non-Admin Reason: No Insulin Coverage Lactulose (Lactulose 20 Gm/30 Ml Solution) 10 gm PO DAILY PRN PRN Reason: Constipation Melatonin (Melatonin 3 Mg Tablet) 3 mg PO BEDTIME PRN PRN Reason: Insomnia Last Admin: 06/03/24 20:30 Dose: 3 mg Documented By: MERI Multi-Ingred Medicated Throat [place] (Throat [place], Medicated 177 Ml Bottle) 1 spray MUCOUS MEM Q2H PRN PRN Reason: throat irritaion Last Admin: 05/30/24 13:05 Dose: 1 spray Documented By: COTEMA Nitroglycerin (Nitroglycerin 0.4 Mg Tab.Subl) 0.4 mg SUBLINGUAL Q5M PRN PRN Reason: angina Omeprazole (Omeprazole 20 Mg Capsule.Dr) 20 mg PO DAILY@0630 [facility] Last Admin: 06/07/24 06:23 Dose: 20 mg Documented By: DONG Polyethylene Glycol (Polyethylene Glycol 3350 17 Gm Powd.Pack) 17 gm PO DAILY [facility] Last Admin: 06/07/24 09:05 Dose: Not Given Documented By: CARLTON Non-Admin Reason: Patient Refused Senna (Sennosides 8.6 Mg Tablet) 8.6 mg PO DAILY PRN PRN Reason: Constipation Last Admin: 06/07/24 04:25 Dose: 8.6 mg Documented By: DONG Sitagliptin Phosphate (Sitagliptin Phosphate 100 Mg Tablet) 100 mg PO DAILY [facility] Last Admin: 06/07/24 09:01 Dose: 100 mg Documented By: CARLTON Sodium Chloride (0.9 % Sodium Chloride Flush 3 Ml Syringe) 3 ml IVFLUSH QSHIFT [facility] Last Admin: 06/07/24 07:59 Dose: Not Given Documented By: CARLTON Non-Admin Reason: No Access Trolamine Salicylate (Trolamine Salicylate 10 % Cream 141 Gm Tube) 1 appl TOPICAL BID PRN; Protocol PRN Reason: both shoulders Last Admin: 06/05/24 20:15 Dose: 1 appl Documented By: MIGUEL ARISM Labs 06/01/24 07:12 06/01/24 07:12 Labs: Laboratory Results - last 24 hr 06/06/24 06/06/24 06/06/24 11:50 16:08 20:17 POC Glucose 189 H 213 H 176 H 06/07/24 07:27 POC Glucose 111 Assessment and Plan (1) Cognitive impairment: Status: Acute (2) Glaucoma of both eyes: Status: Acute Plan 88yo F with vascular dementia, diabetes, hypertension, hyperlipidemia, and peptic ulcer disease presented with mechanical fall on 03/24/24 and found to have left foot fracture, and has since been awaiting safe placement pending conservatorship Mechanical fall on 06/04 trying to get out of bed, -CT of head, neck and hip no acute injury -closer monitoring with 1:1, besides camera. -if doing better can reassess for sitter removal Vascular dementia -[place] Cognitive Assessment (MoCA) is 08/02 = Severe Cognitive Impairment -lacks capacity to make sound medical decision -stable, has guardian -Psych to advises on med management as she is becoming increasingly more agitated and agresive DM2--conrolled Hba1c 7.7 continue GPZ, empagliflozin, sitagliptin, add SSI Follow BS, L foot fx--> 8 wks, Ortho recommends boot, no intervention, WBAT. She ambulates well with walker bilateral shoulder pain/likely due to osteoarthritis. on Aspercreme/Tylenol OT recommends ROM exercises. Constipation--try lactulose VTE ppx LMWH--she typically refuses, but notes that she ambulates with staff Dispo: Ultimately LTC Need for inpt: placement pending Periodic labs check, CBC, BMP 06/01, unremarkable Quality Stroke Does the patient have a stroke diagnosis?: No VTE Prior VTE?: No VTE Risk Level:: Medical - moderate - high VTE Device Contraindication: Treatment Not Indicated VTE Drug Contraindication: N/A - Med Ordered
[2024-06-07 11:31] LABS: Glucose, Whole Blood 182 mg/dL (60-115)
[2024-06-07] MEDS: Insulin Lispro 100 UNIT/ML 3 ML VIAL SUBCUT ×3 (12:32→20:40)
[2024-06-07 15:15] VITALS: BP 124/55; PULSE 90; RESP 18; TEMP 37; O2SAT 96
[2024-06-07 16:11] LABS: Glucose, Whole Blood 234 mg/dL (60-115)
[2024-06-07] MEDS: Atorvastatin Calcium 10 MG TABLET PO (19:31)
[2024-06-07] MEDS: Donepezil HCl 5 MG TABLET PO (19:31)
[2024-06-07 20:07] LABS: Glucose, Whole Blood 253 mg/dL (60-115)
[2024-06-07 23:41] VITALS: BP 165/77; PULSE 82; RESP 16; TEMP 37.1; O2SAT 96
[2024-06-08] MEDS: Butalb/Acetamin/Caff 50/325/40 TABLET 1 TAB PO (03:03)
[2024-06-08] MEDS: Omeprazole 20 MG CAPSULE.DR PO (05:26)
--- NOTE | 2024-06-08 06:01 | PC.NURSE ---
Pt continues to have complaints about the staff, hospital, and her care. This RN and CNAs did our best to meet this pt's needs during our shift. Pt stated she wants/needs to leave to go to her bank, she wants this RN to help find her an tax associate attorney so she can liz the hospital. Pt remains confused though she did appear to have trouble sleeping overnight. She did c/o a headache which she received a PRN med for (see MAR for administration). Call [facility] within reach. 1:1 sitter in room since 2300. Bed alarm on.
[2024-06-08 07:25] VITALS: BP 131/66; PULSE 95; RESP 16; TEMP 36.7; O2SAT 94
[2024-06-08 07:55] LABS: Glucose, Whole Blood 189 mg/dL (60-115)
[2024-06-08] MEDS: glipiZIDE 10 MG TABLET PO ×2 (08:40→20:58)
[2024-06-08] MEDS: Empagliflozin 10 MG TABLET PO (08:40)
[2024-06-08] MEDS: Docusate Sodium 100 MG CAPSULE PO (08:40)
[2024-06-08] MEDS: Aspirin Enteric Coated 81 MG TABLET.DR PO (08:40)
[2024-06-08] MEDS: SITagliptin Phosphate 100 MG TABLET PO (08:40)
[2024-06-08] MEDS: Insulin Lispro 100 UNIT/ML 3 ML VIAL SUBCUT ×4 (08:41→20:59)
[2024-06-08] MEDS: Fluticasone Propionate Nasal 16 GM SPRAY 1 SPRAY NOSTRIL-B ×2 (08:44→21:01)
--- NOTE | 2024-06-08 09:25 | HO.PM.IMPN ---
Subjective Subjective Date of Service: 06/08/24 Interval History: Seen/examined, awaiting placement no new issues, calm and cooperative Physical Exam Vital Signs: Vital Signs: Last Vital Signs Temp 98.1 F 06/08/24 07:25 Pulse 95 06/08/24 07:25 Resp 16 06/08/24 07:25 BP 131/66 06/08/24 07:25 Pulse Ox 94 06/08/24 07:25 O2 Del Method Room Air 06/08/24 07:25 BMI result Body Mass Index 24.5 Const: Other: General: alert and oriented to self only HEENT: normal appearing, Resp: CTA bilateral CVS: S1,S2,RRR GI: +BS, NT, no distention Skin: No rash, no skin tear, no bruse MSK: hip normal range of motion without pain Neuro: motor grossly intact, leg movement intack, strenght equal bilateral Psych: appropriate affect Objective Data Active Medications Acetaminophen (Acetaminophen 325 Mg Tablet) 650 mg PO Q4H PRN PRN Reason: headache or pain Last Admin: 05/19/24 20:33 Dose: 650 mg Acetaminophen/Butalbital/Caffeine (Butalb/Acetamin/Caff 50/325/40 Tablet) 1 tab PO Q4H PRN PRN Reason: Headache Last Admin: 06/08/24 03:03 Dose: 1 tab Documented By: DONG Amitriptyline HCl (Amitriptyline Hcl 25 Mg Tablet) 25 mg PO BEDTIME [facility] Last Admin: 06/07/24 19:31 Dose: Not Given Documented By: DONG Non-Admin Reason: Patient Refused Aspirin (Aspirin Enteric Coated 81 Mg Tablet.) 81 mg PO DAILY [facility] Last Admin: 06/08/24 08:40 Dose: 81 mg Documented By: NERIS Atorvastatin Calcium (Atorvastatin Calcium 10 Mg Tablet) 10 mg PO BEDTIME [facility] Last Admin: 06/07/24 19:31 Dose: 10 mg Documented By: DONG Docusate Sodium (Docusate Sodium 100 Mg Capsule) 100 mg PO BID [facility] Last Admin: 06/08/24 08:40 Dose: 100 mg Documented By: NERIS Donepezil HCl (Donepezil Hcl 5 Mg Tablet) 5 mg PO BEDTIME [facility] Last Admin: 06/07/24 19:31 Dose: 5 mg Documented By: DONG Empagliflozin (Empagliflozin 10 Mg Tablet) 10 mg PO DAILY [facility] Last Admin: 06/08/24 08:40 Dose: 10 mg Documented By: NERIS Enoxaparin Sodium (Enoxaparin Sodium 40 Mg/0.4 Ml Syringe) 40 mg SUBCUT Q24H [facility] Last Admin: 06/08/24 08:41 Dose: Not Given Documented By: NERIS Non-Admin Reason: Patient Refused Fluticasone Propionate (Fluticasone Propionate Nasal 16 Gm [place]) 1 spray NOSTRIL-B BID [facility] Last Admin: 06/08/24 08:44 Dose: 1 spray Documented By: NERIS Glipizide (Glipizide 10 Mg Tablet) 10 mg PO BID [facility] Last Admin: 06/08/24 08:40 Dose: 10 mg Documented By: NERIS Glucose (Glucose Gel 15 Gm Gel..Gram.) 15 gm PO Q15M PRN; Protocol PRN Reason: per Hypoglycemia Standing Ord. Dextrose (D10) 250 mls @ 750 mls/hr IV Q15M PRN; Protocol PRN Reason: per Hypoglycemia Standing Ord. Insulin Human Lispro (Insulin Lispro 100 Unit/Ml 3 Ml Vial) 0 unit SUBCUT QIDACHS [facility]; Protocol Last Admin: 06/08/24 08:41 Dose: 2 unit Documented By: NERIS Lactulose (Lactulose 20 Gm/30 Ml Solution) 10 gm PO DAILY PRN PRN Reason: Constipation Melatonin (Melatonin 3 Mg Tablet) 3 mg PO BEDTIME PRN PRN Reason: Insomnia Last Admin: 06/03/24 20:30 Dose: 3 mg Documented By: MERI Multi-Ingred Medicated Throat [place] (Throat [place], Medicated 177 Ml Bottle) 1 spray MUCOUS MEM Q2H PRN PRN Reason: throat irritaion Last Admin: 05/30/24 13:05 Dose: 1 spray Documented By: COTMATIAS Nitroglycerin (Nitroglycerin 0.4 Mg Tab.Subl) 0.4 mg SUBLINGUAL Q5M PRN PRN Reason: angina Omeprazole (Omeprazole 20 Mg Capsule.Dr) 20 mg PO DAILY@0630 [facility] Last Admin: 06/08/24 05:26 Dose: 20 mg Documented By: DONG Polyethylene Glycol (Polyethylene Glycol 3350 17 Gm Powd.Pack) 17 gm PO DAILY [facility] Last Admin: 06/08/24 08:42 Dose: Not Given Documented By: NERIS Non-Admin Reason: Patient Refused Senna (Sennosides 8.6 Mg Tablet) 8.6 mg PO DAILY PRN PRN Reason: Constipation Last Admin: 06/07/24 04:25 Dose: 8.6 mg Documented By: DONG Sitagliptin Phosphate (Sitagliptin Phosphate 100 Mg Tablet) 100 mg PO DAILY [facility] Last Admin: 06/08/24 08:40 Dose: 100 mg Documented By: NERIS Sodium Chloride (0.9 % Sodium Chloride Flush 3 Ml Syringe) 3 ml IVFLUSH QSHIFT [facility] Last Admin: 06/08/24 08:44 Dose: Not Given Documented By: ENRIS Non-Admin Reason: Patient Refused Trolamine Salicylate (Trolamine Salicylate 10 % Cream 141 Gm Tube) 1 appl TOPICAL BID PRN; Protocol PRN Reason: both shoulders Last Admin: 06/05/24 20:15 Dose: 1 appl Documented By: MIGUEL ARISGary Labs 06/01/24 07:12 06/01/24 07:12 Labs: Laboratory Results - last 24 hr 06/07/24 06/07/24 06/07/24 11:21 15:47 19:54 POC Glucose 182 H 234 H 253 H 06/08/24 07:46 POC Glucose 189 H Assessment and Plan (1) Cognitive impairment: Status: Acute (2) Glaucoma of both eyes: Status: Acute Plan 88yo F with vascular dementia, diabetes, hypertension, hyperlipidemia, and peptic ulcer disease presented with mechanical fall on 03/24/24 and found to have left foot fracture, and has since been awaiting safe placement pending conservatorship Mechanical fall on 06/04 trying to get out of bed, -CT of head, neck and hip no acute injury -closer monitoring with 1:1, besides camera. -if doing better can reassess for sitter removal Vascular dementia -[place] Cognitive Assessment (MoCA) is 08/02 = Severe Cognitive Impairment -lacks capacity to make sound medical decision -stable, has guardian -Psych to advises on med management as she is becoming increasingly more agitated and agresive DM2--conrolled Hba1c 7.7 continue GPZ, empagliflozin, sitagliptin, add SSI Follow BS, L foot fx--> 8 wks, Ortho recommends boot, no intervention, WBAT. She ambulates well with walker bilateral shoulder pain/likely due to osteoarthritis. on Aspercreme/Tylenol OT recommends ROM exercises. Constipation--try lactulose VTE ppx LMWH--she typically refuses, but notes that she ambulates with staff Dispo: Ultimately LTC Need for inpt: placement pending Periodic labs check, CBC, BMP 06/01, unremarkable She is doing better last couple day and we can try wathing with camera alone Quality Stroke Does the patient have a stroke diagnosis?: No VTE Prior VTE?: No VTE Risk Level:: Medical - moderate - high VTE Device Contraindication: Treatment Not Indicated VTE Drug Contraindication: N/A - Med Ordered
[2024-06-08 11:20] LABS: Glucose, Whole Blood 193 mg/dL (60-115)
[2024-06-08 15:19] VITALS: BP 132/58; PULSE 87; RESP 18; TEMP 36.4; O2SAT 97
[2024-06-08 16:14] LABS: Glucose, Whole Blood 160 mg/dL (60-115)
[2024-06-08] MEDS: Hydrocortisone 2.5 % Rectal Cr 30 GM TUBE 1 APPL PR (18:44)
[2024-06-08 19:57] LABS: Glucose, Whole Blood 295 mg/dL (60-115)
[2024-06-08 20:07] VITALS: BP 128/61; PULSE 93; RESP 16; TEMP 36.2; O2SAT 97
[2024-06-08] MEDS: Donepezil HCl 5 MG TABLET PO (20:58)
[2024-06-08] MEDS: Atorvastatin Calcium 10 MG TABLET PO (20:58)
[2024-06-08 23:49] VITALS: BP 147/66; PULSE 90; RESP 18; TEMP 36.2; O2SAT 97
[2024-06-09] MEDS: Butalb/Acetamin/Caff 50/325/40 TABLET 1 TAB PO ×2 (03:44→22:55)
[2024-06-09] MEDS: Omeprazole 20 MG CAPSULE.DR PO (06:53)
[2024-06-09 07:06] VITALS: BP 135/64; PULSE 90; RESP 16; TEMP 37; O2SAT 97
[2024-06-09 07:11] LABS: Glucose, Whole Blood 127 mg/dL (60-115)
[2024-06-09] MEDS: SITagliptin Phosphate 100 MG TABLET PO (09:23)
[2024-06-09] MEDS: Empagliflozin 10 MG TABLET PO (09:23)
[2024-06-09] MEDS: glipiZIDE 10 MG TABLET PO ×2 (09:23→22:08)
[2024-06-09] MEDS: Aspirin Enteric Coated 81 MG TABLET.DR PO (09:23)
[2024-06-09] MEDS: Docusate Sodium 100 MG CAPSULE PO (09:23)
[2024-06-09] MEDS: Fluticasone Propionate Nasal 16 GM SPRAY 1 SPRAY NOSTRIL-B (09:24)
[2024-06-09 11:24] LABS: Glucose, Whole Blood 251 mg/dL (60-115)
[2024-06-09] MEDS: Insulin Lispro 100 UNIT/ML 3 ML VIAL SUBCUT ×3 (12:30→22:09)
--- NOTE | 2024-06-09 12:41 | P.PNIM_ITS ---
Subjective Subjective Date of Service: 06/09/24 Interval History: Seen/examined, awaiting placement no new issues, calm, cooperative and pleasant Physical Exam 2 Vital Signs: Vital Signs: Last Vital Signs Temp 98.6 F 06/09/24 07:06 Pulse 90 06/09/24 07:06 Resp 16 06/09/24 07:06 BP 135/64 06/09/24 07:06 Pulse Ox 97 06/09/24 07:06 O2 Del Method Room Air 06/09/24 07:06 BMI result Body Mass Index 24.5 Const: Other: General: alert and oriented to self only HEENT: normal appearing, Resp: CTA bilateral CVS: S1,S2,RRR GI: +BS, NT, no distention Skin: No rash, no skin tear, no bruse MSK: hip normal range of motion without pain Neuro: motor grossly intact, leg movement intack, strenght equal bilateral Psych: appropriate affect Objective Data Active Medications Acetaminophen (Acetaminophen 325 Mg Tablet) 650 mg PO Q4H PRN PRN Reason: headache or pain Last Admin: 05/19/24 20:33 Dose: 650 mg Acetaminophen/Butalbital/Caffeine (Butalb/Acetamin/Caff 50/325/40 Tablet) 1 tab PO Q4H PRN PRN Reason: Headache Last Admin: 06/09/24 03:44 Dose: 1 tab Documented By: YAHIR Amitriptyline HCl (Amitriptyline Hcl 25 Mg Tablet) 25 mg PO BEDTIME [facility] Last Admin: 06/08/24 20:49 Dose: Not Given Documented By: YAHIR Non-Admin Reason: Patient Refused Aspirin (Aspirin Enteric Coated 81 Mg Tablet.) 81 mg PO DAILY [facility] Last Admin: 06/09/24 09:23 Dose: 81 mg Documented By: NERIS Atorvastatin Calcium (Atorvastatin Calcium 10 Mg Tablet) 10 mg PO BEDTIME [facility] Last Admin: 06/08/24 20:58 Dose: 10 mg Documented By: YAHIR Docusate Sodium (Docusate Sodium 100 Mg Capsule) 100 mg PO BID [facility] Last Admin: 06/09/24 09:23 Dose: 100 mg Documented By: NERIS Donepezil HCl (Donepezil Hcl 5 Mg Tablet) 5 mg PO BEDTIME [facility] Last Admin: 06/08/24 20:58 Dose: 5 mg Documented By: YAHIR Empagliflozin (Empagliflozin 10 Mg Tablet) 10 mg PO DAILY [facility] Last Admin: 06/09/24 09:23 Dose: 10 mg Documented By: NERIS Enoxaparin Sodium (Enoxaparin Sodium 40 Mg/0.4 Ml Syringe) 40 mg SUBCUT Q24H [facility] Last Admin: 06/09/24 09:17 Dose: Not Given Documented By: NERIS Non-Admin Reason: Patient Refused Fluticasone Propionate (Fluticasone Propionate Nasal 16 Gm [place]) 1 spray NOSTRIL-B BID [facility] Last Admin: 06/09/24 09:24 Dose: 1 spray Documented By: NERIS Glipizide (Glipizide 10 Mg Tablet) 10 mg PO BID [facility] Last Admin: 06/09/24 09:23 Dose: 10 mg Documented By: NERIS Glucose (Glucose Gel 15 Gm Gel..Gram.) 15 gm PO Q15M PRN; Protocol PRN Reason: per Hypoglycemia Standing Ord. Hydrocortisone (Hydrocortisone 2.5 % Rectal Cr 30 Gm Tube) [address] DAILY PRN PRN Reason: Hemorrhoids Last Admin: 06/08/24 18:44 Dose: 1 appl Documented By: NERIS Dextrose (D10) 250 mls @ 750 mls/hr IV Q15M PRN; Protocol PRN Reason: per Hypoglycemia Standing Ord. Insulin Human Lispro (Insulin Lispro 100 Unit/Ml 3 Ml Vial) 0 unit SUBCUT QIDACHS [facility]; Protocol Last Admin: 06/09/24 08:31 Dose: Not Given Documented By: NERIS Non-Admin Reason: No Insulin Coverage Lactulose (Lactulose 20 Gm/30 Ml Solution) 10 gm PO DAILY PRN PRN Reason: Constipation Melatonin (Melatonin 3 Mg Tablet) 3 mg PO BEDTIME PRN PRN Reason: Insomnia Last Admin: 06/03/24 20:30 Dose: 3 mg Documented By: MERI Multi-Ingred Medicated Throat [place] (Throat [place], Medicated 177 Ml Bottle) 1 spray MUCOUS MEM Q2H PRN PRN Reason: throat irritaion Last Admin: 05/30/24 13:05 Dose: 1 spray Documented By: COTEMA Nitroglycerin (Nitroglycerin 0.4 Mg Tab.Subl) 0.4 mg SUBLINGUAL Q5M PRN PRN Reason: angina Omeprazole (Omeprazole 20 Mg Capsule.) 20 mg PO DAILY@0630 [facility] Last Admin: 06/09/24 06:53 Dose: 20 mg Documented By: YAHIR Polyethylene Glycol (Polyethylene Glycol 3350 17 Gm Powd.Pack) 17 gm PO DAILY [facility] Last Admin: 06/09/24 09:24 Dose: Not Given Documented By: NERIS Non-Admin Reason: Patient Refused Senna (Sennosides 8.6 Mg Tablet) 8.6 mg PO DAILY PRN PRN Reason: Constipation Last Admin: 06/07/24 04:25 Dose: 8.6 mg Documented By: DONG Sitagliptin Phosphate (Sitagliptin Phosphate 100 Mg Tablet) 100 mg PO DAILY [facility] Last Admin: 06/09/24 09:23 Dose: 100 mg Documented By: NERIS Sodium Chloride (0.9 % Sodium Chloride Flush 3 Ml Syringe) 3 ml IVFLUSH QSHIFT [facility] Last Admin: 06/09/24 09:17 Dose: Not Given Documented By: NERIS Non-Admin Reason: No Access Trolamine Salicylate (Trolamine Salicylate 10 % Cream 141 Gm Tube) 1 appl TOPICAL BID PRN; Protocol PRN Reason: both shoulders Last Admin: 06/05/24 20:15 Dose: 1 appl Documented By: FAUSTINO Labs 06/01/24 07:12 06/01/24 07:12 Labs: Laboratory Results - last 24 hr 06/08/24 06/08/24 06/09/24 16:06 19:50 07:08 POC Glucose 160 H 295 H 127 H 06/09/24 11:16 POC Glucose 251 H Assessment and Plan (1) Cognitive impairment: Status: Acute (2) Glaucoma of both eyes: Status: Acute Plan 88yo F with vascular dementia, diabetes, hypertension, hyperlipidemia, and peptic ulcer disease presented with mechanical fall on 03/24/24 and found to have left foot fracture, and has since been awaiting safe placement pending conservatorship Mechanical fall on 06/04 trying to get out of bed, -CT of head, neck and hip no acute injury -closer monitoring with 1:1, besides camera. -if doing better can reassess for sitter removal Vascular dementia -[place] Cognitive Assessment (MoCA) is 08/02 = Severe Cognitive Impairment -lacks capacity to make sound medical decision -stable, has guardian -Psych to advises on med management as she is becoming increasingly more agitated and agresive DM2--conrolled Hba1c 7.7 continue GPZ, empagliflozin, sitagliptin, add SSI Follow BS, L foot fx--> 8 wks, Ortho recommends boot, no intervention, WBAT. She ambulates well with walker bilateral shoulder pain/likely due to osteoarthritis. on Aspercreme/Tylenol OT recommends ROM exercises. Constipation--try lactulose VTE ppx LMWH--she typically refuses, but notes that she ambulates with staff Dispo: Ultimately LTC Need for inpt: placement pending Periodic labs check, CBC, BMP 06/01, unremarkable She is doing better last couple day and we can try wathing with camera alone Quality Stroke Does the patient have a stroke diagnosis?: No VTE Prior VTE?: No VTE Risk Level:: Medical - moderate - high VTE Device Contraindication: Treatment Not Indicated VTE Drug Contraindication: N/A - Med Ordered
--- NOTE | 2024-06-09 14:50 | PC.NURSE ---
Per , d/c rey, pt is now next to the nurses station, camera on when patient attempts to get up and ambulate alone.
[2024-06-09 15:44] VITALS: BP 137/66; PULSE 95; RESP 18; TEMP 36.3; O2SAT 99
[2024-06-09 15:56] LABS: Glucose, Whole Blood 278 mg/dL (60-115)
[2024-06-09 20:10] LABS: Glucose, Whole Blood 234 mg/dL (60-115)
[2024-06-09] MEDS: Donepezil HCl 5 MG TABLET PO (22:08)
[2024-06-09] MEDS: Atorvastatin Calcium 10 MG TABLET PO (22:09)
[2024-06-09 23:49] VITALS: BP 131/64; PULSE 96; RESP 16; TEMP 36.5; O2SAT 97
[2024-06-10 07:32] LABS: Glucose, Whole Blood 167 mg/dL (60-115)
[2024-06-10 08:00] VITALS: BP 146/70; PULSE 92; RESP 18; TEMP 36.5; O2SAT 92
[2024-06-10] MEDS: Aspirin Enteric Coated 81 MG TABLET.DR PO (09:58)
[2024-06-10] MEDS: glipiZIDE 10 MG TABLET PO ×2 (09:58→21:43)
[2024-06-10] MEDS: Empagliflozin 10 MG TABLET PO (09:59)
[2024-06-10] MEDS: SITagliptin Phosphate 100 MG TABLET PO (09:59)
[2024-06-10] MEDS: Fluticasone Propionate Nasal 16 GM SPRAY 1 SPRAY NOSTRIL-B (10:00)
[2024-06-10] MEDS: Docusate Sodium 100 MG CAPSULE PO ×2 (10:00→21:43)
[2024-06-10 10:21] LABS: Glucose, Whole Blood 270 mg/dL (60-115)
[2024-06-10] MEDS: Insulin Lispro 100 UNIT/ML 3 ML VIAL SUBCUT ×2 (10:25→19:35)
[2024-06-10 12:10] LABS: Glucose, Whole Blood 143 mg/dL (60-115)
--- NOTE | 2024-06-10 13:54 | P.PNIM_ITS ---
Subjective Subjective Date of Service: 06/10/24 Interval History: Being followed for placement. Offers no acute complaints, doing range of motion upper extremity exercises, motivated to ambulate, no acute events overnight. Review of Systems All other system reviewed and are negative. Physical Exam 2 Vital Signs: Vital Signs: Last Vital Signs Temp 97.7 F 06/10/24 08:00 Pulse 92 06/10/24 08:00 Resp 18 06/10/24 08:00 BP 146/70 H 06/10/24 08:00 Pulse Ox 92 06/10/24 08:00 O2 Del Method Room Air 06/10/24 08:00 BMI result Body Mass Index 24.5 Const: Other: General: alert and oriented , in no acute distress Anicteric sclera Resp: CTA bilateral CVS: S1,S2,RRR GI: +BS, NT, no distention Skin: No rash, no skin tear, no bruse MSK: hip normal range of motion without pain/limited range of motion bilateral upper extremity. Neuro: motor grossly intact, speech clear Psych: appropriate affect Objective Data Active Medications Acetaminophen (Acetaminophen 325 Mg Tablet) 650 mg PO Q4H PRN PRN Reason: headache or pain Last Admin: 05/19/24 20:33 Dose: 650 mg Acetaminophen/Butalbital/Caffeine (Butalb/Acetamin/Caff 50/325/40 Tablet) 1 tab PO Q4H PRN PRN Reason: Headache Last Admin: 06/09/24 22:55 Dose: 1 tab Documented By: YAHIR Amitriptyline HCl (Amitriptyline Hcl 25 Mg Tablet) 25 mg PO BEDTIME [facility] Last Admin: 06/09/24 21:46 Dose: Not Given Documented By: YAHIR Non-Admin Reason: Patient Refused Aspirin (Aspirin Enteric Coated 81 Mg Tablet.) 81 mg PO DAILY [facility] Last Admin: 06/10/24 09:58 Dose: 81 mg Documented By: KE Atorvastatin Calcium (Atorvastatin Calcium 10 Mg Tablet) 10 mg PO BEDTIME [facility] Last Admin: 06/09/24 22:09 Dose: 10 mg Documented By: YAHIR Docusate Sodium (Docusate Sodium 100 Mg Capsule) 100 mg PO BID [facility] Last Admin: 06/10/24 10:00 Dose: 100 mg Documented By: KE Donepezil HCl (Donepezil Hcl 5 Mg Tablet) 5 mg PO BEDTIME [facility] Last Admin: 06/09/24 22:08 Dose: 5 mg Documented By: YAHIR Empagliflozin (Empagliflozin 10 Mg Tablet) 10 mg PO DAILY [facility] Last Admin: 06/10/24 09:59 Dose: 10 mg Documented By: KE Enoxaparin Sodium (Enoxaparin Sodium 40 Mg/0.4 Ml Syringe) 40 mg SUBCUT Q24H [facility] Last Admin: 06/10/24 10:17 Dose: Not Given Documented By: KE Non-Admin Reason: Patient Refused Fluticasone Propionate (Fluticasone Propionate Nasal 16 Gm [place]) 1 spray NOSTRIL-B BID [facility] Last Admin: 06/10/24 10:00 Dose: 1 spray Documented By: KE Glipizide (Glipizide 10 Mg Tablet) 10 mg PO BID [facility] Last Admin: 06/10/24 09:58 Dose: 10 mg Documented By: KE Glucose (Glucose Gel 15 Gm Gel..Gram.) 15 gm PO Q15M PRN; Protocol PRN Reason: per Hypoglycemia Standing Ord. Hydrocortisone (Hydrocortisone 2.5 % Rectal Cr 30 Gm Tube) 1 appl [place] DAILY PRN PRN Reason: Hemorrhoids Last Admin: 06/08/24 18:44 Dose: 1 appl Documented By: NERIS Dextrose (D10) 250 mls @ 750 mls/hr IV Q15M PRN; Protocol PRN Reason: per Hypoglycemia Standing Ord. Insulin Human Lispro (Insulin Lispro 100 Unit/Ml 3 Ml Vial) 0 unit SUBCUT QIDACHS [facility]; Protocol Last Admin: 06/10/24 12:35 Dose: Not Given Documented By: KE Non-Admin Reason: No Insulin Coverage Lactulose (Lactulose 20 Gm/30 Ml Solution) 10 gm PO DAILY PRN PRN Reason: Constipation Melatonin (Melatonin 3 Mg Tablet) 3 mg PO BEDTIME PRN PRN Reason: Insomnia Last Admin: 06/03/24 20:30 Dose: 3 mg Documented By: MERI Multi-Ingred Medicated Throat [place] (Throat [place], Medicated 177 Ml Bottle) 1 spray MUCOUS MEM Q2H PRN PRN Reason: throat irritaion Last Admin: 05/30/24 13:05 Dose: 1 spray Documented By: GINO Nitroglycerin (Nitroglycerin 0.4 Mg Tab.Subl) 0.4 mg SUBLINGUAL Q5M PRN PRN Reason: angina Omeprazole (Omeprazole 20 Mg Capsule.Dr) 20 mg PO DAILY@0630 [facility] Last Admin: 06/10/24 06:36 Dose: Not Given Documented By: YAHIR Non-Admin Reason: Patient Refused Polyethylene Glycol (Polyethylene Glycol 3350 17 Gm Powd.Pack) 17 gm PO DAILY [facility] Last Admin: 06/10/24 10:19 Dose: Not Given Documented By: KE Non-Admin Reason: Patient Refused Senna (Sennosides 8.6 Mg Tablet) 8.6 mg PO DAILY PRN PRN Reason: Constipation Last Admin: 06/07/24 04:25 Dose: 8.6 mg Documented By: DONG Sitagliptin Phosphate (Sitagliptin Phosphate 100 Mg Tablet) 100 mg PO DAILY [facility] Last Admin: 06/10/24 09:59 Dose: 100 mg Documented By: KE Sodium Chloride (0.9 % Sodium Chloride Flush 3 Ml Syringe) 3 ml IVFLUSH QSHIFT [facility] Last Admin: 06/10/24 10:14 Dose: Not Given Documented By: KE Non-Admin Reason: no iv access Trolamine Salicylate (Trolamine Salicylate 10 % Cream 141 Gm Tube) 1 appl TOPICAL BID PRN; Protocol PRN Reason: both shoulders Last Admin: 06/05/24 20:15 Dose: 1 appl Documented By: MIGUEL ARISGary Labs 06/01/24 07:12 06/01/24 07:12 Labs: Laboratory Results - last 24 hr 06/09/24 06/09/24 06/10/24 15:51 20:05 07:26 POC Glucose 278 H 234 H 167 H 06/10/24 06/10/24 10:14 12:05 POC Glucose 270 H 143 H Assessment and Plan (1) Cognitive impairment: Status: Acute (2) Glaucoma of both eyes: Status: Acute Plan 88yo F with vascular dementia, diabetes, hypertension, hyperlipidemia, and peptic ulcer disease presented with mechanical fall on 03/24/24 and found to have left foot fracture, and has since been awaiting safe placement pending conservatorship Mechanical fall on 06/04 trying to get out of bed, -CT of head, neck and hip no acute injury, recommend ambulation with staff t.i.d. Vascular dementia -Reese Cognitive Assessment (MoCA) is 08/02 = Severe Cognitive Impairment -lacks capacity to make sound medical decision -stable, has guardian DM2--conrolled Hba1c 7.7 continue GPZ, empagliflozin, sitagliptin, add SSI Follow BS, L foot fx--> 8 wks, Ortho recommends boot, no intervention, WBAT. She ambulates well with walker bilateral shoulder pain/likely due to osteoarthritis. on Aspercreme/Tylenol OT recommends ROM exercises. Constipation--continue lactulose VTE ppx LMWH--she typically refuses, but notes that she ambulates with staff Dispo: Ultimately LTC Need for inpt: placement pending Periodic labs check, CBC, BMP 06/01, unremarkable Quality Stroke Does the patient have a stroke diagnosis?: No VTE Prior VTE?: No VTE Risk Level:: Medical - moderate - high VTE Device Contraindication: Treatment Not Indicated VTE Drug Contraindication: N/A - Med Ordered
[2024-06-10 16:00] VITALS: BP 120/55; PULSE 65; RESP 12; TEMP 36.4; O2SAT 96
[2024-06-10 16:30] LABS: Glucose, Whole Blood 287 mg/dL (60-115)
[2024-06-10 19:27] LABS: Glucose, Whole Blood 265 mg/dL (60-115)
[2024-06-10 21:37] LABS: Glucose, Whole Blood 72 mg/dL (60-115)
[2024-06-10] MEDS: Butalb/Acetamin/Caff 50/325/40 TABLET 1 TAB PO (21:43)
[2024-06-10] MEDS: Donepezil HCl 5 MG TABLET PO (21:43)
[2024-06-10] MEDS: Atorvastatin Calcium 10 MG TABLET PO (21:43)
[2024-06-10 23:33] VITALS: BP 147/70; PULSE 91; RESP 18; TEMP 36.6; O2SAT 98
[2024-06-11 07:39] LABS: Glucose, Whole Blood 140 mg/dL (60-115)
[2024-06-11 08:00] VITALS: BP 140/65; PULSE 91; RESP 17; TEMP 36.8; O2SAT 97
[2024-06-11] MEDS: Aspirin Enteric Coated 81 MG TABLET.DR PO (09:56)
[2024-06-11] MEDS: glipiZIDE 10 MG TABLET PO ×2 (09:56→20:56)
[2024-06-11] MEDS: Docusate Sodium 100 MG CAPSULE PO ×2 (09:56→20:45)
[2024-06-11] MEDS: Empagliflozin 10 MG TABLET PO (09:56)
[2024-06-11] MEDS: SITagliptin Phosphate 100 MG TABLET PO (09:57)
[2024-06-11] MEDS: Butalb/Acetamin/Caff 50/325/40 TABLET 1 TAB PO (09:58)
[2024-06-11] MEDS: Fluticasone Propionate Nasal 16 GM SPRAY 1 SPRAY NOSTRIL-B (09:59)
--- NOTE | 2024-06-11 10:56 | HO.PM.IMPN ---
Subjective Subjective Date of Service: 06/11/24 Interval History: Being followed for placement. No acute issues overnight. Offers no acute complaints, doing [id number] exercises upper extremities. Review of Systems All other system reviewed and negative. Physical Exam Vital Signs: Vital Signs: Last Vital Signs Temp 98.3 F 06/11/24 08:00 Pulse 91 06/11/24 08:00 Resp 17 06/11/24 08:00 BP 140/65 H 06/11/24 08:00 Pulse Ox 97 06/11/24 08:00 O2 Del Method Room Air 06/11/24 08:00 BMI result Body Mass Index 24.5 Const: Other: General: alert and oriented , in no acute distress Anicteric sclera Resp: CTA bilateral CVS: S1,S2,RRR GI: +BS, NT, no distention Skin: No rash, no skin tear, no bruse MSK: hip normal range of motion without pain/limited range of motion bilateral upper extremity. Neuro: motor grossly intact, speech clear Psych: appropriate affect Objective Data Active Medications Acetaminophen (Acetaminophen 325 Mg Tablet) 650 mg PO Q4H PRN PRN Reason: headache or pain Last Admin: 05/19/24 20:33 Dose: 650 mg Acetaminophen/Butalbital/Caffeine (Butalb/Acetamin/Caff 50/325/40 Tablet) 1 tab PO Q4H PRN PRN Reason: Headache Last Admin: 06/11/24 09:58 Dose: 1 tab Documented By: KE Amitriptyline HCl (Amitriptyline Hcl 25 Mg Tablet) 25 mg PO BEDTIME [facility] Last Admin: 06/10/24 21:50 Dose: Not Given Documented By: KRISTOPHER Non-Admin Reason: Patient Refused Aspirin (Aspirin Enteric Coated 81 Mg Tablet.) 81 mg PO DAILY [facility] Last Admin: 06/11/24 09:56 Dose: 81 mg Documented By: KE Atorvastatin Calcium (Atorvastatin Calcium 10 Mg Tablet) 10 mg PO BEDTIME [facility] Last Admin: 06/10/24 21:43 Dose: 10 mg Documented By: KRISTOPHER Docusate Sodium (Docusate Sodium 100 Mg Capsule) 100 mg PO BID [facility] Last Admin: 06/11/24 09:56 Dose: 100 mg Documented By: KE Donepezil HCl (Donepezil Hcl 5 Mg Tablet) 5 mg PO BEDTIME [facility] Last Admin: 06/10/24 21:43 Dose: 5 mg Documented By: KRISTOPHER Empagliflozin (Empagliflozin 10 Mg Tablet) 10 mg PO DAILY [facility] Last Admin: 06/11/24 09:56 Dose: 10 mg Documented By: KE Enoxaparin Sodium (Enoxaparin Sodium 40 Mg/0.4 Ml Syringe) 40 mg SUBCUT Q24H [facility] Last Admin: 06/11/24 09:56 Dose: Not Given Documented By: KE Non-Admin Reason: Patient Refused Fluticasone Propionate (Fluticasone Propionate Nasal 16 Gm [place]) 1 spray NOSTRIL-B BID [facility] Last Admin: 06/11/24 09:59 Dose: 1 spray Documented By: KE Glipizide (Glipizide 10 Mg Tablet) 10 mg PO BID [facility] Last Admin: 06/11/24 09:56 Dose: 10 mg Documented By: KE Glucose (Glucose Gel 15 Gm Gel..Gram.) 15 gm PO Q15M PRN; Protocol PRN Reason: per Hypoglycemia Standing Ord. Hydrocortisone (Hydrocortisone 2.5 % Rectal Cr 30 Gm Tube) 1 appl [place] DAILY PRN PRN Reason: Hemorrhoids Last Admin: 06/08/24 18:44 Dose: 1 appl Documented By: NERIS Dextrose (D10) 250 mls @ 750 mls/hr IV Q15M PRN; Protocol PRN Reason: per Hypoglycemia Standing Ord. Insulin Human Lispro (Insulin Lispro 100 Unit/Ml 3 Ml Vial) 0 unit SUBCUT QIDACHS [facility]; Protocol Last Admin: 06/11/24 09:55 Dose: Not Given Documented By: KE Non-Admin Reason: No Insulin Coverage Lactulose (Lactulose 20 Gm/30 Ml Solution) 10 gm PO DAILY PRN PRN Reason: Constipation Melatonin (Melatonin 3 Mg Tablet) 3 mg PO BEDTIME PRN PRN Reason: Insomnia Last Admin: 06/03/24 20:30 Dose: 3 mg Documented By: MERI Multi-Ingred Medicated Throat [place] (Throat [place], Medicated 177 Ml Bottle) 1 spray MUCOUS MEM Q2H PRN PRN Reason: throat irritaion Last Admin: 05/30/24 13:05 Dose: 1 spray Documented By: HO.COTEMA Nitroglycerin (Nitroglycerin 0.4 Mg Tab.Subl) 0.4 mg SUBLINGUAL Q5M PRN PRN Reason: angina Omeprazole (Omeprazole 20 Mg Capsule.Dr) 20 mg PO DAILY@0630 [facility] Last Admin: 06/11/24 06:30 Dose: Not Given Documented By: JOAQUIN Non-Admin Reason: Patient Refused Polyethylene Glycol (Polyethylene Glycol 3350 17 Gm Powd.Pack) 17 gm PO DAILY [facility] Last Admin: 06/11/24 09:59 Dose: Not Given Documented By: KE Non-Admin Reason: Patient Refused Senna (Sennosides 8.6 Mg Tablet) 8.6 mg PO DAILY PRN PRN Reason: Constipation Last Admin: 06/07/24 04:25 Dose: 8.6 mg Documented By: DONG Sitagliptin Phosphate (Sitagliptin Phosphate 100 Mg Tablet) 100 mg PO DAILY [facility] Last Admin: 06/11/24 09:57 Dose: 100 mg Documented By: KE Sodium Chloride (0.9 % Sodium Chloride Flush 3 Ml Syringe) 3 ml IVFLUSH QSHIFT [facility] Last Admin: 06/11/24 09:55 Dose: Not Given Documented By: KE Non-Admin Reason: no access Trolamine Salicylate (Trolamine Salicylate 10 % Cream 141 Gm Tube) 1 appl TOPICAL BID PRN; Protocol PRN Reason: both shoulders Last Admin: 06/05/24 20:15 Dose: 1 appl Documented By: MIGUEL ARISGary Labs 06/01/24 07:12 06/01/24 07:12 Labs: Laboratory Results - last 24 hr 06/10/24 06/10/24 06/10/24 12:05 16:23 19:21 POC Glucose 143 H 287 H 265 H 06/10/24 06/11/24 21:33 07:35 POC Glucose 72 140 H Assessment and Plan (1) Cognitive impairment: Status: Acute (2) Glaucoma of both eyes: Status: Acute Plan 88yo F with vascular dementia, diabetes, hypertension, hyperlipidemia, and peptic ulcer disease presented with mechanical fall on 03/24/24 and found to have left foot fracture, and has since been awaiting safe placement pending conservatorship Mechanical fall on 06/04 trying to get out of bed, -CT of head, neck and hip no acute injury, recommend ambulation with staff t.i.d. Vascular dementia -Reese Cognitive Assessment (MoCA) is 08/02 = Severe Cognitive Impairment -lacks capacity to make sound medical decision -stable, has guardian DM2--conrolled Hba1c 7.7 continue GPZ, empagliflozin, sitagliptin, and SSI. L foot fx--> 8 wks, Ortho recommends boot, no intervention, WBAT. She ambulates well with walker bilateral shoulder pain/likely due to osteoarthritis. on Aspercreme/Tylenol OT recommends ROM exercises. Constipation--continue lactulose VTE ppx LMWH--she typically refuses, but notes that she ambulates with staff Dispo: Ultimately LTC Need for inpt: placement pending Periodic labs check, CBC, BMP 06/01, unremarkable Quality Stroke Does the patient have a stroke diagnosis?: No VTE Prior VTE?: No VTE Risk Level:: Medical - moderate - high VTE Device Contraindication: Treatment Not Indicated VTE Drug Contraindication: N/A - Med Ordered
[2024-06-11 11:32] LABS: Glucose, Whole Blood 183 mg/dL (60-115)
[2024-06-11] MEDS: Insulin Lispro 100 UNIT/ML 3 ML VIAL SUBCUT ×2 (13:01→17:24)
--- NOTE | 2024-06-11 13:03 | MHC.CM.PN ---
PT AWAITING [place] APPLICATION FOR LTC PLACEMENT REFERRALS ARE OUT, THERE ARE NO BED OFFERS AT THIS TIME
[2024-06-11 16:00] VITALS: BP 119/60; PULSE 86; RESP 12; TEMP 37; O2SAT 97
[2024-06-11 16:22] LABS: Glucose, Whole Blood 242 mg/dL (60-115)
[2024-06-11 20:23] LABS: Glucose, Whole Blood 140 mg/dL (60-115)
[2024-06-11] MEDS: Melatonin 3 MG TABLET PO (20:45)
[2024-06-11] MEDS: Donepezil HCl 5 MG TABLET PO (20:45)
[2024-06-11] MEDS: Atorvastatin Calcium 10 MG TABLET PO (20:45)
[2024-06-11 23:31] VITALS: BP 154/70; PULSE 81; RESP 18; TEMP 36.8; O2SAT 98
[2024-06-12] MEDS: Hydrocortisone 2.5 % Rectal Cr 30 GM TUBE 1 APPL PR (00:29)
[2024-06-12] MEDS: Trolamine Salicylate 10 % Cream 141 gm Tube 1 APPL TOPICAL ×2 (00:29→20:15)
[2024-06-12] MEDS: Sennosides 8.6 MG TABLET PO (00:51)
[2024-06-12] MEDS: Omeprazole 20 MG CAPSULE.DR PO (05:43)
[2024-06-12] MEDS: Butalb/Acetamin/Caff 50/325/40 TABLET 1 TAB PO (06:25)
[2024-06-12 07:53] VITALS: BP 159/80; PULSE 82; RESP 16; TEMP 36.1; O2SAT 96
[2024-06-12 08:03] LABS: Glucose, Whole Blood 135 mg/dL (60-115)
[2024-06-12] MEDS: polyethylene glycoL 3350 17 GM POWD.PACK PO (09:43)
[2024-06-12] MEDS: Docusate Sodium 100 MG CAPSULE PO ×2 (09:43→20:13)
[2024-06-12] MEDS: SITagliptin Phosphate 100 MG TABLET PO (09:43)
[2024-06-12] MEDS: glipiZIDE 10 MG TABLET PO ×2 (09:45→20:13)
[2024-06-12] MEDS: Empagliflozin 10 MG TABLET PO (09:45)
[2024-06-12] MEDS: Aspirin Enteric Coated 81 MG TABLET.DR PO (09:45)
[2024-06-12] MEDS: Fluticasone Propionate Nasal 16 GM SPRAY 1 SPRAY NOSTRIL-B (09:48)
--- NOTE | 2024-06-12 10:55 | HO.PM.IMPN ---
Subjective Subjective Date of Service: 06/12/24 Interval History: Being followed for placement. No acute events overnight, patient offers no acute complaints, stable blood sugars, tolerating diet. Review of Systems All other system reviewed and are negative Physical Exam Vital Signs: Vital Signs: Last Vital Signs Temp 97.0 F 06/12/24 07:53 Pulse 82 06/12/24 07:53 Resp 16 06/12/24 07:53 BP 159/80 H 06/12/24 07:53 Pulse Ox 96 06/12/24 07:53 O2 Del Method Room Air 06/12/24 07:53 BMI result Body Mass Index 24.5 Const: Other: General: alert and oriented , in no acute distress Anicteric sclera Resp: CTA bilateral CVS: S1,S2,RRR GI: +BS, NT, no distention Skin: No rash, no skin tear, no bruse MSK: hip normal range of motion without pain/limited range of motion bilateral upper extremity. Neuro: motor grossly intact, speech clear Psych: appropriate affect Objective Data Active Medications Acetaminophen (Acetaminophen 325 Mg Tablet) 650 mg PO Q4H PRN PRN Reason: headache or pain Last Admin: 05/19/24 20:33 Dose: 650 mg Acetaminophen/Butalbital/Caffeine (Butalb/Acetamin/Caff 50/325/40 Tablet) 1 tab PO Q4H PRN PRN Reason: Headache Last Admin: 06/12/24 06:25 Dose: 1 tab Documented By: MACARIO Amitriptyline HCl (Amitriptyline Hcl 25 Mg Tablet) 25 mg PO BEDTIME [facility] Last Admin: 06/11/24 20:48 Dose: Not Given Documented By: MACARIO Non-Admin Reason: Patient Refused Aspirin (Aspirin Enteric Coated 81 Mg Tablet.) 81 mg PO DAILY [facility] Last Admin: 06/12/24 09:45 Dose: 81 mg Documented By: ZURDO Atorvastatin Calcium (Atorvastatin Calcium 10 Mg Tablet) 10 mg PO BEDTIME [facility] Last Admin: 06/11/24 20:45 Dose: 10 mg Documented By: MACARIO Docusate Sodium (Docusate Sodium 100 Mg Capsule) 100 mg PO BID [facility] Last Admin: 06/12/24 09:43 Dose: 100 mg Documented By: ZURDO Donepezil HCl (Donepezil Hcl 5 Mg Tablet) 5 mg PO BEDTIME [facility] Last Admin: 06/11/24 20:45 Dose: 5 mg Documented By: MACARIO Empagliflozin (Empagliflozin 10 Mg Tablet) 10 mg PO DAILY [facility] Last Admin: 06/12/24 09:45 Dose: 10 mg Documented By: ZURDO Enoxaparin Sodium (Enoxaparin Sodium 40 Mg/0.4 Ml Syringe) 40 mg SUBCUT Q24H [facility] Last Admin: 06/12/24 09:45 Dose: Not Given Documented By: ZURDO Non-Admin Reason: Patient Refused Fluticasone Propionate (Fluticasone Propionate Nasal 16 Gm [place]) 1 spray NOSTRIL-B BID [facility] Last Admin: 06/12/24 09:48 Dose: 1 spray Documented By: ZURDO Glipizide (Glipizide 10 Mg Tablet) 10 mg PO BID [facility] Last Admin: 06/12/24 09:45 Dose: 10 mg Documented By: ZURDO Glucose (Glucose Gel 15 Gm Gel..Gram.) 15 gm PO Q15M PRN; Protocol PRN Reason: per Hypoglycemia Standing Ord. Hydrocortisone (Hydrocortisone 2.5 % Rectal Cr 30 Gm Tube) 1 appl [place] BID PRN PRN Reason: Hemorrhoids Dextrose (D10) 250 mls @ 750 mls/hr IV Q15M PRN; Protocol PRN Reason: per Hypoglycemia Standing Ord. Insulin Human Lispro (Insulin Lispro 100 Unit/Ml 3 Ml Vial) 0 unit SUBCUT QIDACHS [facility]; Protocol Last Admin: 06/12/24 09:41 Dose: Not Given Documented By: ZURDO Non-Admin Reason: No Insulin Coverage Lactulose (Lactulose 20 Gm/30 Ml Solution) 10 gm PO DAILY PRN PRN Reason: Constipation Melatonin (Melatonin 3 Mg Tablet) 3 mg PO BEDTIME PRN PRN Reason: Insomnia Last Admin: 06/11/24 20:45 Dose: 3 mg Documented By: MACARIO Multi-Ingred Medicated Throat [place] (Throat [place], Medicated 177 Ml Bottle) 1 spray MUCOUS MEM Q2H PRN PRN Reason: throat irritaion Last Admin: 05/30/24 13:05 Dose: 1 spray Documented By: GINO Nitroglycerin (Nitroglycerin 0.4 Mg Tab.Subl) 0.4 mg SUBLINGUAL Q5M PRN PRN Reason: angina Omeprazole (Omeprazole 20 Mg Capsule.) 20 mg PO DAILY@0630 [facility] Last Admin: 06/12/24 05:43 Dose: 20 mg Documented By: MACARIO Polyethylene Glycol (Polyethylene Glycol 3350 17 Gm Powd.Pack) 17 gm PO DAILY [facility] Last Admin: 06/12/24 09:43 Dose: 17 gm Documented By: ZURDO Senna (Sennosides 8.6 Mg Tablet) 8.6 mg PO DAILY PRN PRN Reason: Constipation Last Admin: 06/12/24 00:51 Dose: 8.6 mg Documented By: MACARIO Sitagliptin Phosphate (Sitagliptin Phosphate 100 Mg Tablet) 100 mg PO DAILY [facility] Last Admin: 06/12/24 09:43 Dose: 100 mg Documented By: ZURDO Sodium Chloride (0.9 % Sodium Chloride Flush 3 Ml Syringe) 3 ml IVFLUSH QSHIFT [facility] Last Admin: 06/12/24 09:41 Dose: Not Given Documented By: ZURDO Non-Admin Reason: No Access Trolamine Salicylate (Trolamine Salicylate 10 % Cream 141 Gm Tube) 1 appl TOPICAL BID PRN; Protocol PRN Reason: both shoulders Last Admin: 06/12/24 00:29 Dose: 1 appl Documented By: MACARIO Labs 06/01/24 07:12 06/01/24 07:12 Labs: Laboratory Results - last 24 hr 06/11/24 06/11/24 06/11/24 11:27 16:15 20:19 POC Glucose 183 H 242 H 140 H 06/12/24 07:59 POC Glucose 135 H Assessment and Plan (1) Cognitive impairment: Status: Acute (2) Glaucoma of both eyes: Status: Acute Plan 88yo F with vascular dementia, diabetes, hypertension, hyperlipidemia, and peptic ulcer disease presented with mechanical fall on 03/24/24 and found to have left foot fracture, and has since been awaiting safe placement pending conservatorship Mechanical fall on 06/04 trying to get out of bed, -CT of head, neck and hip no acute injury, recommend ambulation with staff t.i.d. Vascular dementia -Reese Cognitive Assessment (MoCA) is 08/02 = Severe Cognitive Impairment -lacks capacity to make sound medical decision -stable, has guardian DM2--conrolled Hba1c 7.7 continue GPZ, empagliflozin, sitagliptin, and SSI. L foot fx--> 8 wks, Ortho recommends boot, no intervention, WBAT. She ambulates well with walker bilateral shoulder pain/likely due to osteoarthritis. on Aspercreme/Tylenol OT recommends ROM exercises. Constipation--continue lactulose VTE ppx LMWH--she typically refuses, but notes that she ambulates with staff Dispo: Ultimately LTC Need for inpt: placement pending Periodic labs check, CBC, BMP 06/01, unremarkable Quality Stroke Does the patient have a stroke diagnosis?: No VTE Prior VTE?: No VTE Risk Level:: Medical - moderate - high VTE Device Contraindication: Treatment Not Indicated VTE Drug Contraindication: N/A - Med Ordered
[2024-06-12 11:32] LABS: Glucose, Whole Blood 197 mg/dL (60-115)
[2024-06-12] MEDS: Insulin Lispro 100 UNIT/ML 3 ML VIAL SUBCUT ×3 (12:10→20:13)
[2024-06-12 15:51] VITALS: BP 126/70; PULSE 97; RESP 18; TEMP 36.8; O2SAT 98
[2024-06-12 16:50] LABS: Glucose, Whole Blood 202 mg/dL (60-115)
[2024-06-12 19:53] LABS: Glucose, Whole Blood 210 mg/dL (60-115)
[2024-06-12] MEDS: Donepezil HCl 5 MG TABLET PO (20:13)
[2024-06-12] MEDS: Atorvastatin Calcium 10 MG TABLET PO (20:13)
[2024-06-12] MEDS: Melatonin 3 MG TABLET PO (20:13)
[2024-06-12] MEDS: Lactulose 20 GM/30 ML SOLUTION 10 GM PO (20:23)
--- NOTE | 2024-06-12 22:21 | PC.NURSE ---
Addendum entered by Sanaz Perez RN 06/13/24 04:51: As per FOXER, pt had 3x BM during the night. Pt woke up around 4am, upset and very preoccupied about her constipation, tried to redirect but pt was being difficult offered assistance but refused any specific need during this time. Original Note: Pt alert and oriented to self and place,anxious at times, upset about her meds not working, redirected and reinstructed frequently been refusing her Elavil every night, instructed its importance but no effect. Pt is c/o also of constipation,refused Senokot,prn Lactulose was given, awaiting for effect. PT c/o right shoulder pain, ASpercreme cream applied.
[2024-06-13 04:45] VITALS: BP 141/62; PULSE 96; RESP 16; TEMP 36.8; O2SAT 96
[2024-06-13] MEDS: Omeprazole 20 MG CAPSULE.DR PO (05:51)
[2024-06-13] MEDS: Butalb/Acetamin/Caff 50/325/40 TABLET 1 TAB PO (06:15)
[2024-06-13 07:35] LABS: Glucose, Whole Blood 182 mg/dL (60-115)
[2024-06-13] MEDS: glipiZIDE 10 MG TABLET PO ×2 (07:38→21:50)
[2024-06-13] MEDS: SITagliptin Phosphate 100 MG TABLET PO (07:38)
[2024-06-13] MEDS: Aspirin Enteric Coated 81 MG TABLET.DR PO (07:39)
[2024-06-13] MEDS: Empagliflozin 10 MG TABLET PO (07:39)
[2024-06-13] MEDS: Insulin Lispro 100 UNIT/ML 3 ML VIAL SUBCUT ×3 (07:40→21:50)
[2024-06-13] MEDS: Fluticasone Propionate Nasal 16 GM SPRAY 1 SPRAY NOSTRIL-B ×2 (07:42→21:57)
[2024-06-13 07:44] VITALS: BP 114/60; PULSE 94; RESP 16; TEMP 36; O2SAT 96
--- NOTE | 2024-06-13 09:53 | P.PNIM_ITS ---
Subjective Subjective Date of Service: 06/13/24 Interval History: Being followed for placement. No acute complaints, tolerating diet no nausea no vomiting, no abdominal pain. No acute events overnight Review of Systems All other system are reviewed and negative Physical Exam 2 Vital Signs: Vital Signs: Last Vital Signs Temp 96.8 F 06/13/24 07:44 Pulse 94 06/13/24 07:44 Resp 16 06/13/24 07:44 BP 114/60 06/13/24 07:44 Pulse Ox 96 06/13/24 07:44 O2 Del Method Room Air 06/13/24 07:44 BMI result Body Mass Index 24.5 Const: Other: General: alert and oriented , in no acute distress Anicteric sclera Resp: CTA bilateral CVS: S1,S2,RRR GI: +BS, NT, no distention Skin: No rash, no skin tear, no bruse MSK: hip normal range of motion without pain/limited range of motion bilateral upper extremity. Neuro: motor grossly intact, speech clear Psych: appropriate affect Objective Data Active Medications Acetaminophen (Acetaminophen 325 Mg Tablet) 650 mg PO Q4H PRN PRN Reason: headache or pain Last Admin: 05/19/24 20:33 Dose: 650 mg Acetaminophen/Butalbital/Caffeine (Butalb/Acetamin/Caff 50/325/40 Tablet) 1 tab PO Q4H PRN PRN Reason: Headache Last Admin: 06/13/24 06:15 Dose: 1 tab Documented By: MACARIO Amitriptyline HCl (Amitriptyline Hcl 25 Mg Tablet) 25 mg PO BEDTIME [facility] Last Admin: 06/12/24 20:24 Dose: Not Given Documented By: MACARIO Non-Admin Reason: Patient Refused Aspirin (Aspirin Enteric Coated 81 Mg Tablet.) 81 mg PO DAILY [facility] Last Admin: 06/13/24 07:39 Dose: 81 mg Documented By: ZURDO Atorvastatin Calcium (Atorvastatin Calcium 10 Mg Tablet) 10 mg PO BEDTIME [facility] Last Admin: 06/12/24 20:13 Dose: 10 mg Documented By: MACARIO Docusate Sodium (Docusate Sodium 100 Mg Capsule) 100 mg PO BID [facility] Last Admin: 06/13/24 07:41 Dose: Not Given Documented By: ZURDO Non-Admin Reason: Patient Refused Donepezil HCl (Donepezil Hcl 5 Mg Tablet) 5 mg PO BEDTIME [facility] Last Admin: 06/12/24 20:13 Dose: 5 mg Documented By: MACARIO Empagliflozin (Empagliflozin 10 Mg Tablet) 10 mg PO DAILY [facility] Last Admin: 06/13/24 07:39 Dose: 10 mg Documented By: ZURDO Enoxaparin Sodium (Enoxaparin Sodium 40 Mg/0.4 Ml Syringe) 40 mg SUBCUT Q24H [facility] Last Admin: 06/13/24 07:41 Dose: Not Given Documented By: ZURDO Non-Admin Reason: Patient Refused Fluticasone Propionate (Fluticasone Propionate Nasal 16 Gm [place]) 1 spray NOSTRIL-B BID [facility] Last Admin: 06/13/24 07:42 Dose: 1 spray Documented By: ZURDO Glipizide (Glipizide 10 Mg Tablet) 10 mg PO BID [facility] Last Admin: 06/13/24 07:38 Dose: 10 mg Documented By: ZURDO Glucose (Glucose Gel 15 Gm Gel..Gram.) 15 gm PO Q15M PRN; Protocol PRN Reason: per Hypoglycemia Standing Ord. Hydrocortisone (Hydrocortisone 2.5 % Rectal Cr 30 Gm Tube) 1 appl [place] BID PRN PRN Reason: Hemorrhoids Dextrose (D10) 250 mls @ 750 mls/hr IV Q15M PRN; Protocol PRN Reason: per Hypoglycemia Standing Ord. Insulin Human Lispro (Insulin Lispro 100 Unit/Ml 3 Ml Vial) 0 unit SUBCUT QIDACHS [facility]; Protocol Last Admin: 06/13/24 07:40 Dose: 2 unit Documented By: ZURDO Lactulose (Lactulose 20 Gm/30 Ml Solution) 10 gm PO DAILY PRN PRN Reason: Constipation Last Admin: 06/12/24 20:23 Dose: 10 gm Documented By: MACARIO Melatonin (Melatonin 3 Mg Tablet) 3 mg PO BEDTIME PRN PRN Reason: Insomnia Last Admin: 06/12/24 20:13 Dose: 3 mg Documented By: MACARIO Multi-Ingred Medicated Throat [place] (Throat [place], Medicated 177 Ml Bottle) 1 spray MUCOUS MEM Q2H PRN PRN Reason: throat irritaion Last Admin: 05/30/24 13:05 Dose: 1 spray Documented By: HO.COTEMA Nitroglycerin (Nitroglycerin 0.4 Mg Tab.Subl) 0.4 mg SUBLINGUAL Q5M PRN PRN Reason: angina Omeprazole (Omeprazole 20 Mg Capsule.) 20 mg PO DAILY@0630 [facility] Last Admin: 06/13/24 05:51 Dose: 20 mg Documented By: LIZZIE Polyethylene Glycol (Polyethylene Glycol 3350 17 Gm Powd.Pack) 17 gm PO DAILY [facility] Last Admin: 06/13/24 07:44 Dose: Not Given Documented By: ZURDO Non-Admin Reason: Patient Refused Senna (Sennosides 8.6 Mg Tablet) 8.6 mg PO DAILY PRN PRN Reason: Constipation Last Admin: 06/12/24 00:51 Dose: 8.6 mg Documented By: MACARIO Sitagliptin Phosphate (Sitagliptin Phosphate 100 Mg Tablet) 100 mg PO DAILY [facility] Last Admin: 06/13/24 07:38 Dose: 100 mg Documented By: ZURDO Trolamine Salicylate (Trolamine Salicylate 10 % Cream 141 Gm Tube) 1 appl TOPICAL BID PRN; Protocol PRN Reason: both shoulders Last Admin: 06/12/24 20:15 Dose: 1 appl Documented By: MACARIO Labs 06/01/24 07:12 06/01/24 07:12 Labs: Laboratory Results - last 24 hr 06/12/24 06/12/24 06/12/24 11:23 16:44 19:44 POC Glucose 197 H 202 H 210 H 06/13/24 07:30 POC Glucose 182 H Assessment and Plan (1) Cognitive impairment: Status: Acute Plan 88yo F with vascular dementia, diabetes, hypertension, hyperlipidemia, and peptic ulcer disease presented with mechanical fall on 03/24/24 and found to have left foot fracture, and has since been awaiting safe placement pending conservatorship Mechanical fall on 06/04 trying to get out of bed, -CT of head, neck and hip no acute injury, recommend ambulation with staff t.i.d. Vascular dementia -[place] Cognitive Assessment (MoCA) is 08/02 = Severe Cognitive Impairment -lacks capacity to make sound medical decision -stable, has guardian DM2--conrolled Hba1c 7.7 continue GPZ, empagliflozin, sitagliptin, and SSI. L foot fx--> 8 wks, Ortho recommends boot, no intervention, WBAT. She ambulates well with walker bilateral shoulder pain/likely due to osteoarthritis. on Aspercreme/Tylenol OT recommends ROM exercises. Constipation--continue lactulose VTE ppx LMWH--she typically refuses, but notes that she ambulates with staff Dispo: Ultimately LTC Need for inpt: placement pending Periodic labs check, CBC, BMP 06/01, unremarkable Quality Stroke Does the patient have a stroke diagnosis?: No VTE Prior VTE?: No VTE Risk Level:: Medical - moderate - high VTE Device Contraindication: Treatment Not Indicated VTE Drug Contraindication: N/A - Med Ordered
[2024-06-13 11:37] LABS: Glucose, Whole Blood 263 mg/dL (60-115)
[2024-06-13 15:51] VITALS: BP 125/61; PULSE 86; RESP 18; TEMP 36.6; O2SAT 98
[2024-06-13 16:09] LABS: Glucose, Whole Blood 131 mg/dL (60-115)
[2024-06-13 20:22] LABS: Glucose, Whole Blood 291 mg/dL (60-115)
[2024-06-13] MEDS: Donepezil HCl 5 MG TABLET PO (21:49)
[2024-06-13] MEDS: Atorvastatin Calcium 10 MG TABLET PO (21:49)
[2024-06-13] MEDS: Docusate Sodium 100 MG CAPSULE PO (21:50)
[2024-06-13 23:43] VITALS: BP 149/66; PULSE 94; RESP 18; TEMP 36.4; O2SAT 95
[2024-06-14 04:03] VITALS: BP 158/72; PULSE 92; RESP 18; TEMP 36.5; O2SAT 97
[2024-06-14] MEDS: Butalb/Acetamin/Caff 50/325/40 TABLET 1 TAB PO (04:13)
[2024-06-14] MEDS: Omeprazole 20 MG CAPSULE.DR PO (06:04)
[2024-06-14 07:30] LABS: Glucose, Whole Blood 124 mg/dL (60-115)
[2024-06-14 08:00] VITALS: BP 155/68; PULSE 93; RESP 18; TEMP 36.7; O2SAT 96
[2024-06-14] MEDS: Aspirin Enteric Coated 81 MG TABLET.DR PO (09:13)
[2024-06-14] MEDS: Empagliflozin 10 MG TABLET PO (09:13)
[2024-06-14] MEDS: glipiZIDE 10 MG TABLET PO ×2 (09:13→20:50)
[2024-06-14] MEDS: SITagliptin Phosphate 100 MG TABLET PO (09:13)
[2024-06-14] MEDS: Fluticasone Propionate Nasal 16 GM SPRAY 1 SPRAY NOSTRIL-B ×2 (09:13→20:44)
--- NOTE | 2024-06-14 09:18 | P.PNIM_ITS ---
Subjective Subjective Date of Service: 06/14/24 Interval History: Being followed for placement. No acute issues overnight. Offers no acute complaints, doing czzik-sy-owdgnu exercises upper extremities. Review of Systems All other system are reviewed and are negative Physical Exam 2 Vital Signs: Vital Signs: Last Vital Signs Temp 98.1 F 06/14/24 08:00 Pulse 93 06/14/24 08:00 Resp 18 06/14/24 08:00 BP 155/68 H 06/14/24 08:00 Pulse Ox 96 06/14/24 08:00 O2 Del Method Room Air 06/14/24 08:00 BMI result Body Mass Index 24.5 Const: Other: General: alert and oriented , in no acute distress Anicteric sclera Resp: CTA bilateral CVS: S1,S2,RRR GI: +BS, NT, no distention Skin: No rash, no skin tear, no bruse MSK: limited range of motion bilateral upper extremity. Neuro: motor grossly intact, speech clear Psych: appropriate affect Objective Data Active Medications Acetaminophen (Acetaminophen 325 Mg Tablet) 650 mg PO Q4H PRN PRN Reason: headache or pain Last Admin: 05/19/24 20:33 Dose: 650 mg Acetaminophen/Butalbital/Caffeine (Butalb/Acetamin/Caff 50/325/40 Tablet) 1 tab PO Q4H PRN PRN Reason: Headache Last Admin: 06/14/24 04:13 Dose: 1 tab Documented By: LORA Amitriptyline HCl (Amitriptyline Hcl 25 Mg Tablet) 25 mg PO BEDTIME [facility] Last Admin: 06/13/24 21:52 Dose: Not Given Documented By: LORA Non-Admin Reason: Patient Refused Aspirin (Aspirin Enteric Coated 81 Mg Tablet.) 81 mg PO DAILY [facility] Last Admin: 06/14/24 09:13 Dose: 81 mg Documented By: RUBEN Atorvastatin Calcium (Atorvastatin Calcium 10 Mg Tablet) 10 mg PO BEDTIME [facility] Last Admin: 06/13/24 21:49 Dose: 10 mg Documented By: LORA Docusate Sodium (Docusate Sodium 100 Mg Capsule) 100 mg PO BID [facility] Last Admin: 06/14/24 09:14 Dose: Not Given Documented By: RUBEN Non-Admin Reason: Patient Refused Donepezil HCl (Donepezil Hcl 5 Mg Tablet) 5 mg PO BEDTIME [facility] Last Admin: 06/13/24 21:49 Dose: 5 mg Documented By: LORA Empagliflozin (Empagliflozin 10 Mg Tablet) 10 mg PO DAILY [facility] Last Admin: 06/14/24 09:13 Dose: 10 mg Documented By: RUBEN Enoxaparin Sodium (Enoxaparin Sodium 40 Mg/0.4 Ml Syringe) 40 mg SUBCUT Q24H [facility] Last Admin: 06/14/24 08:57 Dose: Not Given Documented By: RUBEN Non-Admin Reason: Patient Refused Fluticasone Propionate (Fluticasone Propionate Nasal 16 Gm [place]) 1 spray NOSTRIL-B BID [facility] Last Admin: 06/14/24 09:13 Dose: 1 spray Documented By: RUBEN Glipizide (Glipizide 10 Mg Tablet) 10 mg PO BID [facility] Last Admin: 06/14/24 09:13 Dose: 10 mg Documented By: RUBEN Glucose (Glucose Gel 15 Gm Gel..Gram.) 15 gm PO Q15M PRN; Protocol PRN Reason: per Hypoglycemia Standing Ord. Hydrocortisone (Hydrocortisone 2.5 % Rectal Cr 30 Gm Tube) 1 appl [place] BID PRN PRN Reason: Hemorrhoids Dextrose (D10) 250 mls @ 750 mls/hr IV Q15M PRN; Protocol PRN Reason: per Hypoglycemia Standing Ord. Insulin Human Lispro (Insulin Lispro 100 Unit/Ml 3 Ml Vial) 0 unit SUBCUT QIDACHS [facility]; Protocol Last Admin: 06/14/24 07:59 Dose: Not Given Documented By: RUBEN Non-Admin Reason: No Insulin Coverage Lactulose (Lactulose 20 Gm/30 Ml Solution) 10 gm PO DAILY PRN PRN Reason: Constipation Last Admin: 06/12/24 20:23 Dose: 10 gm Documented By: MACARIO Melatonin (Melatonin 3 Mg Tablet) 3 mg PO BEDTIME PRN PRN Reason: Insomnia Last Admin: 06/12/24 20:13 Dose: 3 mg Documented By: MACARIO Multi-Ingred Medicated Throat [place] (Throat [place], Medicated 177 Ml Bottle) 1 spray MUCOUS MEM Q2H PRN PRN Reason: throat irritaion Last Admin: 05/30/24 13:05 Dose: 1 spray Documented By: GINO Nitroglycerin (Nitroglycerin 0.4 Mg Tab.Subl) 0.4 mg SUBLINGUAL Q5M PRN PRN Reason: angina Omeprazole (Omeprazole 20 Mg Capsule.Dr) 20 mg PO DAILY@0630 [facility] Last Admin: 06/14/24 06:04 Dose: 20 mg Documented By: LORA Polyethylene Glycol (Polyethylene Glycol 3350 17 Gm Powd.Pack) 17 gm PO DAILY [facility] Last Admin: 06/14/24 09:14 Dose: Not Given Documented By: RUBEN Non-Admin Reason: Patient Refused Senna (Sennosides 8.6 Mg Tablet) 8.6 mg PO DAILY PRN PRN Reason: Constipation Last Admin: 06/12/24 00:51 Dose: 8.6 mg Documented By: MACARIO Sitagliptin Phosphate (Sitagliptin Phosphate 100 Mg Tablet) 100 mg PO DAILY [facility] Last Admin: 06/14/24 09:13 Dose: 100 mg Documented By: RUBEN Trolamine Salicylate (Trolamine Salicylate 10 % Cream 141 Gm Tube) 1 appl TOPICAL BID PRN; Protocol PRN Reason: both shoulders Last Admin: 06/12/24 20:15 Dose: 1 appl Documented By: MACARIO Labs 06/01/24 07:12 06/01/24 07:12 Labs: Laboratory Results - last 24 hr 06/13/24 06/13/24 06/13/24 11:29 15:53 20:02 POC Glucose 263 H 131 H 291 H 06/14/24 07:20 POC Glucose 124 H Assessment and Plan (1) Cognitive impairment: Status: Acute (2) Glaucoma of both eyes: Status: Acute Plan 88yo F with vascular dementia, diabetes, hypertension, hyperlipidemia, and peptic ulcer disease presented with mechanical fall on 03/24/24 and found to have left foot fracture, and has since been awaiting safe placement pending conservatorship Mechanical fall on 06/04 trying to get out of bed, -CT of head, neck and hip no acute injury, recommend ambulation with staff t.i.d. Vascular dementia -[place] Cognitive Assessment (MoCA) is 08/02 = Severe Cognitive Impairment -lacks capacity to make sound medical decision -stable, has guardian DM2--conrolled Hba1c 7.7 continue GPZ, empagliflozin, sitagliptin, and SSI. L foot fx--> 8 wks, Ortho recommends boot, no intervention, WBAT. bilateral shoulder pain/likely due to osteoarthritis. on Aspercreme/Tylenol OT recommends ROM exercises. Constipation--continue lactulose VTE ppx LMWH--she typically refuses, but notes that she ambulates with staff Dispo: Ultimately LTC Need for inpt: placement pending Periodic labs check, CBC, BMP 06/01, unremarkable Quality Stroke Does the patient have a stroke diagnosis?: No VTE Prior VTE?: No VTE Risk Level:: Medical - moderate - high VTE Device Contraindication: Treatment Not Indicated VTE Drug Contraindication: N/A - Med Ordered
[2024-06-14 11:40] LABS: Glucose, Whole Blood 187 mg/dL (60-115)
[2024-06-14] MEDS: Insulin Lispro 100 UNIT/ML 3 ML VIAL SUBCUT ×2 (12:00→16:51)
[2024-06-14 15:46] VITALS: BP 149/70; PULSE 92; RESP 16; TEMP 36.6
[2024-06-14 16:26] LABS: Glucose, Whole Blood 328 mg/dL (60-115)
[2024-06-14 20:10] VITALS: BP 127/59; PULSE 89; RESP 18; TEMP 36.5; O2SAT 99
[2024-06-14 20:30] LABS: Glucose, Whole Blood 124 mg/dL (60-115)
[2024-06-14] MEDS: Donepezil HCl 5 MG TABLET PO (20:44)
[2024-06-14] MEDS: Docusate Sodium 100 MG CAPSULE PO (20:44)
[2024-06-14] MEDS: Atorvastatin Calcium 10 MG TABLET PO (20:44)
[2024-06-14 23:47] VITALS: BP 141/70; PULSE 81; RESP 18; TEMP 36.6; O2SAT 98
[2024-06-15] MEDS: Omeprazole 20 MG CAPSULE.DR PO (05:08)
[2024-06-15 07:27] VITALS: BP 149/71; PULSE 86; RESP 16; TEMP 36.6; O2SAT 98
[2024-06-15 07:33] LABS: Glucose, Whole Blood 150 mg/dL (60-115)
[2024-06-15] MEDS: glipiZIDE 10 MG TABLET PO ×2 (09:05→19:58)
[2024-06-15] MEDS: Aspirin Enteric Coated 81 MG TABLET.DR PO (09:05)
[2024-06-15] MEDS: Empagliflozin 10 MG TABLET PO (09:05)
[2024-06-15] MEDS: SITagliptin Phosphate 100 MG TABLET PO (09:05)
[2024-06-15] MEDS: Docusate Sodium 100 MG CAPSULE PO ×2 (09:05→19:58)
[2024-06-15] MEDS: Fluticasone Propionate Nasal 16 GM SPRAY 1 SPRAY NOSTRIL-B ×2 (09:06→19:59)
--- NOTE | 2024-06-15 09:29 | HO.PM.IMPN ---
Subjective Subjective Date of Service: 06/15/24 Interval History: Being followed for placement. No acute issues overnight. Offers no acute complaints, sitting in chair eating and discussing bible Review of Systems no new issues Physical Exam Vital Signs: Vital Signs: Last Vital Signs Temp 97.8 F 06/15/24 07:27 Pulse 86 06/15/24 07:27 Resp 16 06/15/24 07:27 BP 149/71 H 06/15/24 07:27 Pulse Ox 98 06/15/24 07:27 O2 Del Method Room Air 06/15/24 07:27 BMI result Body Mass Index 24.5 Const: Other: General: alert and oriented , in no acute distress Anicteric sclera Resp: CTA bilateral CVS: S1,S2,RRR GI: +BS, NT, no distention Skin: No rash, no skin tear, no bruse MSK: limited range of motion bilateral upper extremity. Neuro: motor grossly intact, speech clear Psych: appropriate affect Objective Data Active Medications Acetaminophen (Acetaminophen 325 Mg Tablet) 650 mg PO Q4H PRN PRN Reason: headache or pain Last Admin: 05/19/24 20:33 Dose: 650 mg Acetaminophen/Butalbital/Caffeine (Butalb/Acetamin/Caff 50/325/40 Tablet) 1 tab PO Q4H PRN PRN Reason: Headache Last Admin: 06/14/24 04:13 Dose: 1 tab Documented By: LORA Amitriptyline HCl (Amitriptyline Hcl 25 Mg Tablet) 25 mg PO BEDTIME [facility] Last Admin: 06/14/24 20:46 Dose: Not Given Documented By: JOSE E Non-Admin Reason: Patient Refused Aspirin (Aspirin Enteric Coated 81 Mg Tablet.) 81 mg PO DAILY [facility] Last Admin: 06/15/24 09:05 Dose: 81 mg Documented By: HONG Atorvastatin Calcium (Atorvastatin Calcium 10 Mg Tablet) 10 mg PO BEDTIME [facility] Last Admin: 06/14/24 20:44 Dose: 10 mg Documented By: JOSE E Docusate Sodium (Docusate Sodium 100 Mg Capsule) 100 mg PO BID [facility] Last Admin: 06/15/24 09:05 Dose: 100 mg Documented By: HONG Donepezil HCl (Donepezil Hcl 5 Mg Tablet) 5 mg PO BEDTIME [facility] Last Admin: 06/14/24 20:44 Dose: 5 mg Documented By: JOSE E Empagliflozin (Empagliflozin 10 Mg Tablet) 10 mg PO DAILY [facility] Last Admin: 06/15/24 09:05 Dose: 10 mg Documented By: HONG Enoxaparin Sodium (Enoxaparin Sodium 40 Mg/0.4 Ml Syringe) 40 mg SUBCUT Q24H [facility] Last Admin: 06/15/24 09:11 Dose: Not Given Documented By: HONG Non-Admin Reason: Patient Refused Fluticasone Propionate (Fluticasone Propionate Nasal 16 Gm [place]) 1 spray NOSTRIL-B BID [facility] Last Admin: 06/15/24 09:06 Dose: 1 spray Documented By: HONG Glipizide (Glipizide 10 Mg Tablet) 10 mg PO BID [facility] Last Admin: 06/15/24 09:05 Dose: 10 mg Documented By: HONG Glucose (Glucose Gel 15 Gm Gel..Gram.) 15 gm PO Q15M PRN; Protocol PRN Reason: per Hypoglycemia Standing Ord. Hydrocortisone (Hydrocortisone 2.5 % Rectal Cr 30 Gm Tube) 1 appl [place] BID PRN PRN Reason: Hemorrhoids Dextrose (D10) 250 mls @ 750 mls/hr IV Q15M PRN; Protocol PRN Reason: per Hypoglycemia Standing Ord. Insulin Human Lispro (Insulin Lispro 100 Unit/Ml 3 Ml Vial) 0 unit SUBCUT QIDACHS [facility]; Protocol Last Admin: 06/15/24 07:35 Dose: Not Given Documented By: RUBEN Non-Admin Reason: No Insulin Coverage Lactulose (Lactulose 20 Gm/30 Ml Solution) 10 gm PO DAILY PRN PRN Reason: Constipation Last Admin: 06/12/24 20:23 Dose: 10 gm Documented By: MACARIO Melatonin (Melatonin 3 Mg Tablet) 3 mg PO BEDTIME PRN PRN Reason: Insomnia Last Admin: 06/12/24 20:13 Dose: 3 mg Documented By: MACARIO Multi-Ingred Medicated Throat [place] (Throat [place], Medicated 177 Ml Bottle) 1 spray MUCOUS MEM Q2H PRN PRN Reason: throat irritaion Last Admin: 05/30/24 13:05 Dose: 1 spray Documented By: COTEMA Nitroglycerin (Nitroglycerin 0.4 Mg Tab.Subl) 0.4 mg SUBLINGUAL Q5M PRN PRN Reason: angina Omeprazole (Omeprazole 20 Mg Capsule.Dr) 20 mg PO DAILY@0630 [facility] Last Admin: 06/15/24 05:08 Dose: 20 mg Documented By: JOSE E Polyethylene Glycol (Polyethylene Glycol 3350 17 Gm Powd.Pack) 17 gm PO DAILY [facility] Last Admin: 06/15/24 09:09 Dose: Not Given Documented By: HONG Non-Admin Reason: Patient Refused Senna (Sennosides 8.6 Mg Tablet) 8.6 mg PO DAILY PRN PRN Reason: Constipation Last Admin: 06/12/24 00:51 Dose: 8.6 mg Documented By: MACARIO Sitagliptin Phosphate (Sitagliptin Phosphate 100 Mg Tablet) 100 mg PO DAILY [facility] Last Admin: 06/15/24 09:05 Dose: 100 mg Documented By: HONG Trolamine Salicylate (Trolamine Salicylate 10 % Cream 141 Gm Tube) 1 appl TOPICAL BID PRN; Protocol PRN Reason: both shoulders Last Admin: 06/12/24 20:15 Dose: 1 appl Documented By: MACARIO Labs 06/01/24 07:12 06/01/24 07:12 Labs: Laboratory Results - last 24 hr 06/14/24 06/14/24 06/14/24 11:34 16:19 20:15 POC Glucose 187 H 328 H 124 H 06/15/24 07:25 POC Glucose 150 H Assessment and Plan (1) Cognitive impairment: Status: Acute (2) Glaucoma of both eyes: Status: Acute Plan 88yo F with vascular dementia, diabetes, hypertension, hyperlipidemia, and peptic ulcer disease presented with mechanical fall on 03/24/24 and found to have left foot fracture, and has since been awaiting safe placement pending conservatorship Mechanical fall on 06/04 trying to get out of bed, -CT of head, neck and hip no acute injury, recommend ambulation with staff t.i.d. Vascular dementia -[place] Cognitive Assessment (MoCA) is 08/02 = Severe Cognitive Impairment -lacks capacity to make sound medical decision -stable, has guardian DM2--conrolled Hba1c 7.7 continue GPZ, empagliflozin, sitagliptin, and SSI. L foot fx--> 8 wks, Ortho recommends boot, no intervention, WBAT. bilateral shoulder pain/likely due to osteoarthritis. on Aspercreme/Tylenol OT recommends ROM exercises. Constipation--continue lactulose VTE ppx LMWH--she typically refuses, but notes that she ambulates with staff Dispo: Ultimately LTC Need for inpt: placement pending Periodic labs check, CBC, BMP 06/01, unremarkable, check today Quality Stroke Does the patient have a stroke diagnosis?: No VTE Prior VTE?: No VTE Risk Level:: Medical - moderate - high VTE Device Contraindication: Treatment Not Indicated VTE Drug Contraindication: N/A - Med Ordered
[2024-06-15 10:14] LABS: Hematocrit 39.5 % (37.0-47.0); Hemoglobin 12.6 g/dl (12.0-16.0); Mean Corpuscular HGB Conc 31.9 g/dl (31.0-35.0); Mean Platelet Volume 10.1 fL (9.4-12.3); Platelet Count 409 X10*3/uL (160-400); Red Cell Distribution Width 13.6 % (11.0-16.0); White Blood Count 7.1 X10*3/uL (4.8-10.8)
[2024-06-15 10:41] LABS: Anion Gap 10 (12-20); Blood Urea Nitrogen 13 mg/dL (9-16); Calcium 9.3 mg/dL (8.4-10.2); Carbon Dioxide 27 mmol/L (22-29); Chloride 107 mmol/L (96-108); Creatinine Clr Calc Pharmacy 50.6; Estimated Glomerular Filt Rate > 60; Glucose Random 256 mg/dL (60-115); Potassium 3.8 mmol/L (3.3-5.1); Sodium 140 mmol/L (135-145)
[2024-06-15 11:14] LABS: Glucose, Whole Blood 211 mg/dL (60-115)
[2024-06-15] MEDS: Insulin Lispro 100 UNIT/ML 3 ML VIAL SUBCUT ×2 (12:35→16:42)
[2024-06-15 15:40] VITALS: BP 125/56; PULSE 95; RESP 18; TEMP 36.2; O2SAT 97
[2024-06-15 16:32] LABS: Glucose, Whole Blood 257 mg/dL (60-115)
[2024-06-15 19:22] VITALS: BP 130/74; PULSE 92; RESP 18; TEMP 36.6; O2SAT 97
[2024-06-15] MEDS: Butalb/Acetamin/Caff 50/325/40 TABLET 1 TAB PO (19:57)
[2024-06-15] MEDS: Atorvastatin Calcium 10 MG TABLET PO (19:57)
[2024-06-15] MEDS: Donepezil HCl 5 MG TABLET PO (19:58)
[2024-06-15 20:31] LABS: Glucose, Whole Blood 107 mg/dL (60-115)
[2024-06-16] VITALS: BP 130/60; PULSE 89; RESP 16; TEMP 36.2; O2SAT 96
[2024-06-16] MEDS: Butalb/Acetamin/Caff 50/325/40 TABLET 1 TAB PO (05:37)
[2024-06-16] MEDS: Omeprazole 20 MG CAPSULE.DR PO (05:38)
[2024-06-16 07:17] VITALS: BP 137/62; PULSE 90; RESP 16; TEMP 37.4; O2SAT 97
[2024-06-16 07:34] LABS: Glucose, Whole Blood 127 mg/dL (60-115)
[2024-06-16] MEDS: Docusate Sodium 100 MG CAPSULE PO ×2 (08:36→22:16)
[2024-06-16] MEDS: Empagliflozin 10 MG TABLET PO (08:36)
[2024-06-16] MEDS: glipiZIDE 10 MG TABLET PO ×2 (08:36→22:18)
[2024-06-16] MEDS: Aspirin Enteric Coated 81 MG TABLET.DR PO (08:36)
[2024-06-16] MEDS: SITagliptin Phosphate 100 MG TABLET PO (08:36)
[2024-06-16] MEDS: Fluticasone Propionate Nasal 16 GM SPRAY 1 SPRAY NOSTRIL-B ×2 (08:37→22:16)
--- NOTE | 2024-06-16 09:42 | HO.PM.IMPN ---
Subjective Subjective Date of Service: 06/16/24 Interval History: No new issues, vial stable, calm and cooperative Review of Systems no new issues Physical Exam Vital Signs: Vital Signs: Last Vital Signs Temp 99.4 F 06/16/24 07:17 Pulse 90 06/16/24 07:17 Resp 16 06/16/24 07:17 BP 137/62 06/16/24 07:17 Pulse Ox 97 06/16/24 07:17 O2 Del Method Room Air 06/16/24 07:17 BMI result Body Mass Index 24.5 Const: Other: General: alert and oriented , in no acute distress Anicteric sclera Resp: CTA bilateral CVS: S1,S2,RRR GI: +BS, NT, no distention Skin: No rash, no skin tear, no bruse MSK: limited range of motion bilateral upper extremity. Neuro: motor grossly intact, speech clear Psych: appropriate affect Objective Data Active Medications Acetaminophen (Acetaminophen 325 Mg Tablet) 650 mg PO Q4H PRN PRN Reason: headache or pain Last Admin: 05/19/24 20:33 Dose: 650 mg Acetaminophen/Butalbital/Caffeine (Butalb/Acetamin/Caff 50/325/40 Tablet) 1 tab PO Q4H PRN PRN Reason: Headache Last Admin: 06/16/24 05:37 Dose: 1 tab Documented By: JOSE E Amitriptyline HCl (Amitriptyline Hcl 25 Mg Tablet) 25 mg PO BEDTIME [facility] Last Admin: 06/15/24 21:43 Dose: Not Given Documented By: JOSE E Non-Admin Reason: Patient Refused Aspirin (Aspirin Enteric Coated 81 Mg Tablet.) 81 mg PO DAILY [facility] Last Admin: 06/16/24 08:36 Dose: 81 mg Documented By: JULIO CÉSAR Atorvastatin Calcium (Atorvastatin Calcium 10 Mg Tablet) 10 mg PO BEDTIME [facility] Last Admin: 06/15/24 19:57 Dose: 10 mg Documented By: JOSE E Docusate Sodium (Docusate Sodium 100 Mg Capsule) 100 mg PO BID [facility] Last Admin: 06/16/24 08:36 Dose: 100 mg Documented By: JULIO CÉSAR Donepezil HCl (Donepezil Hcl 5 Mg Tablet) 5 mg PO BEDTIME [facility] Last Admin: 06/15/24 19:58 Dose: 5 mg Documented By: JOSE E Empagliflozin (Empagliflozin 10 Mg Tablet) 10 mg PO DAILY [facility] Last Admin: 06/16/24 08:36 Dose: 10 mg Documented By: JULIO CÉSAR Enoxaparin Sodium (Enoxaparin Sodium 40 Mg/0.4 Ml Syringe) 40 mg SUBCUT Q24H [facility] Last Admin: 06/16/24 08:50 Dose: Not Given Documented By: JULIO CÉSAR Non-Admin Reason: Patient Refused Fluticasone Propionate (Fluticasone Propionate Nasal 16 Gm [place]) 1 spray NOSTRIL-B BID [facility] Last Admin: 06/16/24 08:37 Dose: 1 spray Documented By: JULIO CÉSAR Glipizide (Glipizide 10 Mg Tablet) 10 mg PO BID [facility] Last Admin: 06/16/24 08:36 Dose: 10 mg Documented By: JULIO CÉSAR Glucose (Glucose Gel 15 Gm Gel..Gram.) 15 gm PO Q15M PRN; Protocol PRN Reason: per Hypoglycemia Standing Ord. Hydrocortisone (Hydrocortisone 2.5 % Rectal Cr 30 Gm Tube) 1 appl [place] BID PRN PRN Reason: Hemorrhoids Dextrose (D10) 250 mls @ 750 mls/hr IV Q15M PRN; Protocol PRN Reason: per Hypoglycemia Standing Ord. Insulin Human Lispro (Insulin Lispro 100 Unit/Ml 3 Ml Vial) 0 unit SUBCUT QIDACHS [facility]; Protocol Last Admin: 06/16/24 08:49 Dose: Not Given Documented By: JULIO CÉSAR Non-Admin Reason: No Insulin Coverage Lactulose (Lactulose 20 Gm/30 Ml Solution) 10 gm PO DAILY PRN PRN Reason: Constipation Last Admin: 06/12/24 20:23 Dose: 10 gm Documented By: MACARIO Melatonin (Melatonin 3 Mg Tablet) 3 mg PO BEDTIME PRN PRN Reason: Insomnia Last Admin: 06/12/24 20:13 Dose: 3 mg Documented By: MACARIO Multi-Ingred Medicated Throat [place] (Throat [place], Medicated 177 Ml Bottle) 1 spray MUCOUS MEM Q2H PRN PRN Reason: throat irritaion Last Admin: 05/30/24 13:05 Dose: 1 spray Documented By: COTEMA Nitroglycerin (Nitroglycerin 0.4 Mg Tab.Subl) 0.4 mg SUBLINGUAL Q5M PRN PRN Reason: angina Omeprazole (Omeprazole 20 Mg Capsule.Dr) 20 mg PO DAILY@0630 [facility] Last Admin: 06/16/24 05:38 Dose: 20 mg Documented By: JOSE E Polyethylene Glycol (Polyethylene Glycol 3350 17 Gm Powd.Pack) 17 gm PO DAILY [facility] Last Admin: 06/16/24 08:51 Dose: Not Given Documented By: JULIO CÉSAR Non-Admin Reason: Patient Refused Senna (Sennosides 8.6 Mg Tablet) 8.6 mg PO DAILY PRN PRN Reason: Constipation Last Admin: 06/12/24 00:51 Dose: 8.6 mg Documented By: MACARIO Sitagliptin Phosphate (Sitagliptin Phosphate 100 Mg Tablet) 100 mg PO DAILY [facility] Last Admin: 06/16/24 08:36 Dose: 100 mg Documented By: JULIO CÉSAR Trolamine Salicylate (Trolamine Salicylate 10 % Cream 141 Gm Tube) 1 appl TOPICAL BID PRN; Protocol PRN Reason: both shoulders Last Admin: 06/12/24 20:15 Dose: 1 appl Documented By: MACARIO Labs 06/15/24 09:53 06/15/24 09:53 Labs: Laboratory Results - last 24 hr 06/15/24 06/15/24 06/15/24 09:53 11:08 16:21 MCV 94.0 MCH 30.0 MCHC 31.9 RDW 13.6 Plt Count 409 H D MPV 10.1 Absolute Nucleated RBC 0.000 Nucleated RBC % (auto) 0.0 Anion Gap 10 L Estim Creat Clear Calc 50.6 Estimated GFR > 60 POC Glucose 211 H 257 H Random Glucose 256 H Calcium 9.3 06/15/24 06/16/24 20:24 07:21 MCV MCH MCHC RDW Plt Count MPV Absolute Nucleated RBC Nucleated RBC % (auto) Anion Gap Estim Creat Clear Calc Estimated GFR POC Glucose 107 127 H Random Glucose Calcium Assessment and Plan (1) Cognitive impairment: Status: Acute (2) Glaucoma of both eyes: Status: Acute Plan 88yo F with vascular dementia, diabetes, hypertension, hyperlipidemia, and peptic ulcer disease presented with mechanical fall on 03/24/24 and found to have left foot fracture, and has since been awaiting safe placement pending conservatorship Mechanical fall on 06/04 trying to get out of bed, -CT of head, neck and hip no acute injury, recommend ambulation with staff t.i.d. Vascular dementia -Reese Cognitive Assessment (MoCA) is 08/02 = Severe Cognitive Impairment -lacks capacity to make sound medical decision -stable, has guardian DM2--conrolled Hba1c 7.7 continue GPZ, empagliflozin, sitagliptin, and SSI. L foot fx--> 8 wks, Ortho recommends boot, no intervention, WBAT. bilateral shoulder pain/likely due to osteoarthritis. on Aspercreme/Tylenol OT recommends ROM exercises. Constipation--continue lactulose VTE ppx LMWH--she typically refuses, but notes that she ambulates with staff Dispo: Ultimately LTC Need for inpt: placement pending Periodic labs check, CBC, BMP 06/15, unremarkable Quality Stroke Does the patient have a stroke diagnosis?: No VTE Prior VTE?: No VTE Risk Level:: Medical - moderate - high VTE Device Contraindication: Treatment Not Indicated VTE Drug Contraindication: N/A - Med Ordered
[2024-06-16 11:28] LABS: Glucose, Whole Blood 189 mg/dL (60-115)
[2024-06-16] MEDS: Insulin Lispro 100 UNIT/ML 3 ML VIAL SUBCUT ×2 (11:59→16:42)
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
[2024-06-16 15:02] VITALS: BP 138/70; PULSE 95; RESP 18; TEMP 36.3; O2SAT 98
[2024-06-16 16:20] LABS: Glucose, Whole Blood 216 mg/dL (60-115)
[2024-06-16 20:11] LABS: Glucose, Whole Blood 137 mg/dL (60-115)
[2024-06-16] MEDS: Donepezil HCl 5 MG TABLET PO (22:16)
[2024-06-16] MEDS: Atorvastatin Calcium 10 MG TABLET PO (22:16)
[2024-06-16 23:19] VITALS: BP 149/74; PULSE 93; RESP 18; TEMP 36.3; O2SAT 98
[2024-06-17] MEDS: Butalb/Acetamin/Caff 50/325/40 TABLET 1 TAB PO ×2 (04:20→08:45)
[2024-06-17] MEDS: Omeprazole 20 MG CAPSULE.DR PO (05:43)
[2024-06-17 07:35] LABS: Glucose, Whole Blood 107 mg/dL (60-115)
[2024-06-17 07:58] VITALS: BP 144/67; PULSE 67; RESP 12; TEMP 36.6; O2SAT 97
[2024-06-17] MEDS: SITagliptin Phosphate 100 MG TABLET PO (08:45)
[2024-06-17] MEDS: glipiZIDE 10 MG TABLET PO ×2 (08:45→20:03)
[2024-06-17] MEDS: Aspirin Enteric Coated 81 MG TABLET.DR PO (08:45)
[2024-06-17] MEDS: Empagliflozin 10 MG TABLET PO (08:45)
[2024-06-17] MEDS: Docusate Sodium 100 MG CAPSULE PO ×2 (08:45→20:04)
[2024-06-17] MEDS: Fluticasone Propionate Nasal 16 GM SPRAY 1 SPRAY NOSTRIL-B ×2 (08:47→20:03)
--- NOTE | 2024-06-17 10:22 | HO.PM.IMPN ---
Subjective Subjective Date of Service: 06/17/24 Interval History: No new issues, calm, cooperative Physical Exam Vital Signs: Vital Signs: Last Vital Signs Temp 97.8 F 06/17/24 07:58 Pulse 67 06/17/24 07:58 Resp 12 06/17/24 07:58 BP 144/67 H 06/17/24 07:58 Pulse Ox 97 06/17/24 07:58 O2 Del Method Room Air 06/17/24 07:58 BMI result Body Mass Index 24.5 Const: Other: General: alert and oriented , in no acute distress Anicteric sclera Resp: CTA bilateral CVS: S1,S2,RRR GI: +BS, NT, no distention Skin: No rash, no skin tear, no bruse MSK: limited range of motion bilateral upper extremity. Neuro: motor grossly intact, speech clear Psych: appropriate affect Objective Data Active Medications Acetaminophen (Acetaminophen 325 Mg Tablet) 650 mg PO Q4H PRN PRN Reason: headache or pain Last Admin: 05/19/24 20:33 Dose: 650 mg Acetaminophen/Butalbital/Caffeine (Butalb/Acetamin/Caff 50/325/40 Tablet) 1 tab PO Q4H PRN PRN Reason: Headache Last Admin: 06/17/24 08:45 Dose: 1 tab Documented By: GINO Amitriptyline HCl (Amitriptyline Hcl 25 Mg Tablet) 25 mg PO BEDTIME [facility] Last Admin: 06/16/24 22:18 Dose: Not Given Documented By: PRINCESS Non-Admin Reason: Patient Refused Aspirin (Aspirin Enteric Coated 81 Mg Tablet.) 81 mg PO DAILY [facility] Last Admin: 06/17/24 08:45 Dose: 81 mg Documented By: GINO Atorvastatin Calcium (Atorvastatin Calcium 10 Mg Tablet) 10 mg PO BEDTIME [facility] Last Admin: 06/16/24 22:16 Dose: 10 mg Documented By: PRINCESS Docusate Sodium (Docusate Sodium 100 Mg Capsule) 100 mg PO BID [facility] Last Admin: 06/17/24 08:45 Dose: 100 mg Documented By: GINO Donepezil HCl (Donepezil Hcl 5 Mg Tablet) 5 mg PO BEDTIME [facility] Last Admin: 06/16/24 22:16 Dose: 5 mg Documented By: PRINCESS Empagliflozin (Empagliflozin 10 Mg Tablet) 10 mg PO DAILY [facility] Last Admin: 06/17/24 08:45 Dose: 10 mg Documented By: COTMATIAS Enoxaparin Sodium (Enoxaparin Sodium 40 Mg/0.4 Ml Syringe) 40 mg SUBCUT Q24H [facility] Last Admin: 06/17/24 07:23 Dose: Not Given Documented By: GINO Non-Admin Reason: Patient Refused Fluticasone Propionate (Fluticasone Propionate Nasal 16 Gm [place]) 1 spray NOSTRIL-B BID [facility] Last Admin: 06/17/24 08:47 Dose: 1 spray Documented By: GINO Glipizide (Glipizide 10 Mg Tablet) 10 mg PO BID [facility] Last Admin: 06/17/24 08:45 Dose: 10 mg Documented By: GINO Glucose (Glucose Gel 15 Gm Gel..Gram.) 15 gm PO Q15M PRN; Protocol PRN Reason: per Hypoglycemia Standing Ord. Hydrocortisone (Hydrocortisone 2.5 % Rectal Cr 30 Gm Tube) 1 appl [place] BID PRN PRN Reason: Hemorrhoids Dextrose (D10) 250 mls @ 750 mls/hr IV Q15M PRN; Protocol PRN Reason: per Hypoglycemia Standing Ord. Insulin Human Lispro (Insulin Lispro 100 Unit/Ml 3 Ml Vial) 0 unit SUBCUT QIDACHS [facility]; Protocol Last Admin: 06/17/24 07:32 Dose: Not Given Documented By: GINO Non-Admin Reason: No Insulin Coverage Comments: poc 107 Lactulose (Lactulose 20 Gm/30 Ml Solution) 10 gm PO DAILY PRN PRN Reason: Constipation Last Admin: 06/12/24 20:23 Dose: 10 gm Documented By: MACARIO Melatonin (Melatonin 3 Mg Tablet) 3 mg PO BEDTIME PRN PRN Reason: Insomnia Last Admin: 06/12/24 20:13 Dose: 3 mg Documented By: MACARIO Multi-Ingred Medicated Throat [place] (Throat [place], Medicated 177 Ml Bottle) 1 spray MUCOUS MEM Q2H PRN PRN Reason: throat irritaion Last Admin: 05/30/24 13:05 Dose: 1 spray Documented By: GINO Nitroglycerin (Nitroglycerin 0.4 Mg Tab.Subl) 0.4 mg SUBLINGUAL Q5M PRN PRN Reason: angina Omeprazole (Omeprazole 20 Mg Capsule.Dr) 20 mg PO DAILY@0630 [facility] Last Admin: 06/17/24 05:43 Dose: 20 mg Documented By: PRINCESS Polyethylene Glycol (Polyethylene Glycol 3350 17 Gm Powd.Pack) 17 gm PO DAILY [facility] Last Admin: 06/17/24 07:23 Dose: Not Given Documented By: GINO Non-Admin Reason: Patient Refused Senna (Sennosides 8.6 Mg Tablet) 8.6 mg PO DAILY PRN PRN Reason: Constipation Last Admin: 06/12/24 00:51 Dose: 8.6 mg Documented By: MACARIO Sitagliptin Phosphate (Sitagliptin Phosphate 100 Mg Tablet) 100 mg PO DAILY [facility] Last Admin: 06/17/24 08:45 Dose: 100 mg Documented By: GINO Trolamine Salicylate (Trolamine Salicylate 10 % Cream 141 Gm Tube) 1 appl TOPICAL BID PRN; Protocol PRN Reason: both shoulders Last Admin: 06/12/24 20:15 Dose: 1 appl Documented By: MACARIO Labs 06/15/24 09:53 06/15/24 09:53 Labs: Laboratory Results - last 24 hr 06/16/24 06/16/24 06/16/24 11:23 16:10 20:01 POC Glucose 189 H 216 H 137 H 06/17/24 07:29 POC Glucose 107 Assessment and Plan (1) Cognitive impairment: Status: Acute (2) Glaucoma of both eyes: Status: Acute Plan 88yo F with vascular dementia, diabetes, hypertension, hyperlipidemia, and peptic ulcer disease presented with mechanical fall on 03/24/24 and found to have left foot fracture, and has since been awaiting safe placement pending conservatorship Mechanical fall on 06/04 trying to get out of bed, -CT of head, neck and hip no acute injury, recommend ambulation with staff t.i.d. Vascular dementia -Reese Cognitive Assessment (MoCA) is 08/02 = Severe Cognitive Impairment -lacks capacity to make sound medical decision -stable, has guardian DM2--conrolled Hba1c 7.7 continue GPZ, empagliflozin, sitagliptin, and SSI. L foot fx--> 8 wks, Ortho recommends boot, no intervention, WBAT. bilateral shoulder pain/likely due to osteoarthritis. on Aspercreme/Tylenol OT recommends ROM exercises. Constipation--continue lactulose VTE ppx LMWH--she typically refuses, but notes that she ambulates with staff Dispo: Ultimately LTC Need for inpt: placement pending Periodic labs check, CBC, BMP 06/15, unremarkable Permanent guardianship hearing tomorrow Quality Stroke Does the patient have a stroke diagnosis?: No VTE Prior VTE?: No VTE Risk Level:: Medical - moderate - high VTE Device Contraindication: Treatment Not Indicated VTE Drug Contraindication: N/A - Med Ordered
[2024-06-17 11:39] LABS: Glucose, Whole Blood 216 mg/dL (60-115)
[2024-06-17] MEDS: Insulin Lispro 100 UNIT/ML 3 ML VIAL SUBCUT ×3 (11:39→20:04)
[2024-06-17 15:36] VITALS: BP 138/65; PULSE 93; RESP 18; TEMP 37.1; O2SAT 98
[2024-06-17 16:19] LABS: Glucose, Whole Blood 193 mg/dL (60-115)
[2024-06-17 19:59] LABS: Glucose, Whole Blood 221 mg/dL (60-115)
[2024-06-17] MEDS: Donepezil HCl 5 MG TABLET PO (20:03)
[2024-06-17] MEDS: Atorvastatin Calcium 10 MG TABLET PO (20:03)
[2024-06-17 23:45] VITALS: RESP 15
[2024-06-18] MEDS: Butalb/Acetamin/Caff 50/325/40 TABLET 1 TAB PO (04:23)
[2024-06-18] MEDS: Omeprazole 20 MG CAPSULE.DR PO (04:58)
[2024-06-18 05:17] VITALS: BP 157/82; PULSE 74; RESP 16; TEMP 36.1; O2SAT 95
--- NOTE | 2024-06-18 06:37 | MHC.PIE ---
p; pt calling injection molder kilgore over 7 times in less than one hour letting staff and this automobile service writer know that she is going to court this am. note; was told by previous RN that pt has court date today for permanent guardianship. pt fixated on court today now trying to get out of bed yelling at staff and this automobile service writer making aggressive gestures as she screams at staff's face. i; security notified and in room e; pt speaking with security calm and pleasant, pt in chair with alarm and camera in room. will cont to monitor
[2024-06-18] MEDS: OLANZapine 10 MG VIAL 2.5 MG IM (07:47)
--- NOTE | 2024-06-18 07:58 | P.PNIM_ITS ---
Subjective Subjective Date of Service: 06/18/24 Interval History: The patient was extremely agitated, insulting, aggressive, hitting and scratching staff, resisting care, and attempting to leave. She was not redirectable, and security was summoned twice to assist. After multiple failed attempts to redirect and calm her down, Zyprexa IM was administered. The episode may have been instigated by family over the phone. Her vitals are stable. Physical Exam 2 Vital Signs: Vital Signs: Last Vital Signs Temp 97.0 F 06/18/24 05:17 Pulse 74 06/18/24 05:17 Resp 16 06/18/24 05:17 BP 157/82 H 06/18/24 05:17 Pulse Ox 95 06/18/24 05:17 O2 Del Method Room Air 06/18/24 05:17 BMI result Body Mass Index 24.5 Const: Other: General: Alert, out of control, undirectable and uncooperative to care, yelling, hitting and scratching staff Resp: CTA bilateral CVS: S1,S2,RRR GI: +BS, NT, no distention Skin: No rash Neuro: motor grossly intact Psych: aggresive behavior Objective Data Active Medications Acetaminophen (Acetaminophen 325 Mg Tablet) 650 mg PO Q4H PRN PRN Reason: headache or pain Last Admin: 05/19/24 20:33 Dose: 650 mg Acetaminophen/Butalbital/Caffeine (Butalb/Acetamin/Caff 50/325/40 Tablet) 1 tab PO Q4H PRN PRN Reason: Headache Last Admin: 06/18/24 04:23 Dose: 1 tab Documented By: SEE Amitriptyline HCl (Amitriptyline Hcl 25 Mg Tablet) 25 mg PO BEDTIME [facility] Last Admin: 06/17/24 20:15 Dose: Not Given Documented By: SEE Non-Admin Reason: Patient Refused Aspirin (Aspirin Enteric Coated 81 Mg Tablet.) 81 mg PO DAILY [facility] Last Admin: 06/17/24 08:45 Dose: 81 mg Documented By: COTMATIAS Atorvastatin Calcium (Atorvastatin Calcium 10 Mg Tablet) 10 mg PO BEDTIME [facility] Last Admin: 06/17/24 20:03 Dose: 10 mg Documented By: SEE Docusate Sodium (Docusate Sodium 100 Mg Capsule) 100 mg PO BID [facility] Last Admin: 06/17/24 20:04 Dose: 100 mg Documented By: SEE Donepezil HCl (Donepezil Hcl 5 Mg Tablet) 5 mg PO BEDTIME [facility] Last Admin: 06/17/24 20:03 Dose: 5 mg Documented By: SEE Empagliflozin (Empagliflozin 10 Mg Tablet) 10 mg PO DAILY [facility] Last Admin: 06/17/24 08:45 Dose: 10 mg Documented By: COTEMA Enoxaparin Sodium (Enoxaparin Sodium 40 Mg/0.4 Ml Syringe) 40 mg SUBCUT Q24H [facility] Last Admin: 06/17/24 07:23 Dose: Not Given Documented By: GINO Non-Admin Reason: Patient Refused Fluticasone Propionate (Fluticasone Propionate Nasal 16 Gm [place]) 1 spray NOSTRIL-B BID [facility] Last Admin: 06/17/24 20:03 Dose: 1 spray Documented By: SEE Glipizide (Glipizide 10 Mg Tablet) 10 mg PO BID [facility] Last Admin: 06/17/24 20:03 Dose: 10 mg Documented By: SEE Glucose (Glucose Gel 15 Gm Gel..Gram.) 15 gm PO Q15M PRN; Protocol PRN Reason: per Hypoglycemia Standing Ord. Hydrocortisone (Hydrocortisone 2.5 % Rectal Cr 30 Gm Tube) 1 appl [place] BID PRN PRN Reason: Hemorrhoids Dextrose (D10) 250 mls @ 750 mls/hr IV Q15M PRN; Protocol PRN Reason: per Hypoglycemia Standing Ord. Insulin Human Lispro (Insulin Lispro 100 Unit/Ml 3 Ml Vial) 0 unit SUBCUT QIDACHS [facility]; Protocol Last Admin: 06/17/24 20:04 Dose: 4 unit Documented By: SEE Lactulose (Lactulose 20 Gm/30 Ml Solution) 10 gm PO DAILY PRN PRN Reason: Constipation Last Admin: 06/12/24 20:23 Dose: 10 gm Melatonin (Melatonin 3 Mg Tablet) 3 mg PO BEDTIME PRN PRN Reason: Insomnia Last Admin: 06/12/24 20:13 Dose: 3 mg Documented By: MACARIO Multi-Ingred Medicated Throat [place] (Throat [place], Medicated 177 Ml Bottle) 1 spray MUCOUS MEM Q2H PRN PRN Reason: throat irritaion Last Admin: 05/30/24 13:05 Dose: 1 spray Documented By: GINO Nitroglycerin (Nitroglycerin 0.4 Mg Tab.Subl) 0.4 mg SUBLINGUAL Q5M PRN PRN Reason: angina Omeprazole (Omeprazole 20 Mg Capsule.) 20 mg PO DAILY@0630 [facility] Last Admin: 06/18/24 04:58 Dose: 20 mg Documented By: SEE Polyethylene Glycol (Polyethylene Glycol 3350 17 Gm Powd.Pack) 17 gm PO DAILY [facility] Last Admin: 06/17/24 07:23 Dose: Not Given Documented By: GINO Non-Admin Reason: Patient Refused Senna (Sennosides 8.6 Mg Tablet) 8.6 mg PO DAILY PRN PRN Reason: Constipation Last Admin: 06/12/24 00:51 Dose: 8.6 mg Sitagliptin Phosphate (Sitagliptin Phosphate 100 Mg Tablet) 100 mg PO DAILY [facility] Last Admin: 06/17/24 08:45 Dose: 100 mg Documented By: GINO Trolamine Salicylate (Trolamine Salicylate 10 % Cream 141 Gm Tube) 1 appl TOPICAL BID PRN; Protocol PRN Reason: both shoulders Last Admin: 06/12/24 20:15 Dose: 1 appl Documented By: CASTILM Labs 06/15/24 09:53 06/15/24 09:53 Labs: Laboratory Results - last 24 hr 06/17/24 06/17/24 06/17/24 11:34 16:14 19:52 POC Glucose 216 H 193 H 221 H Assessment and Plan (1) Cognitive impairment: Status: Acute (2) Glaucoma of both eyes: Status: Acute Plan 88yo F with vascular dementia, diabetes, hypertension, hyperlipidemia, and peptic ulcer disease presented with mechanical fall on 03/24/24 and found to have left foot fracture, and has since been awaiting safe placement pending conservatorship Vascular dementia -Reese Cognitive Assessment (MoCA) is 08/02 = Severe Cognitive Impairment -lacks capacity to make sound medical decision -for the most part has been calm but very agresive this morning as stated above and given IM zyprexa to control behavior and avoid self-harm and harm to staff, rule uti, check with Psych re med management. Mechanical fall on 06/04 trying to get out of bed, -CT of head, neck and hip no acute injury, recommend ambulation with staff t.i.d. DM2--conrolled Hba1c 7.7 continue GPZ, empagliflozin, sitagliptin, and SSI. L foot fx--> 8 wks, Ortho recommends boot, no intervention, WBAT. bilateral shoulder pain/likely due to osteoarthritis. on Aspercreme/Tylenol OT recommends ROM exercises. Constipation--continue lactulose VTE ppx LMWH--she typically refuses, but notes that she ambulates with staff Dispo: Ultimately LTC Need for inpt: placement pending Periodic labs check, CBC, BMP 06/15, unremarkable Permanent guardianship hearing today Quality Stroke Does the patient have a stroke diagnosis?: No VTE Prior VTE?: No VTE Risk Level:: Medical - moderate - high VTE Device Contraindication: Treatment Not Indicated VTE Drug Contraindication: N/A - Med Ordered
[2024-06-18 08:00] VITALS: BP 133/74; PULSE 99; RESP 20; TEMP 36.7; O2SAT 97
[2024-06-18 08:43] LABS: Glucose, Whole Blood 226 mg/dL (60-115)
[2024-06-18 08:47] VITALS: BP 128/66; PULSE 90; RESP 18; O2SAT 95
[2024-06-18 11:24] LABS: Glucose, Whole Blood 165 mg/dL (60-115)
--- NOTE | 2024-06-18 12:00 | PC.NURSE ---
Security called x3 for agitation, aggressiveness, unable to redirect, yelling at staff, trying to leave. High fall risk. Security and Dr. Garcia at bedside. Medicated with IM Zyprexa. Pt more calm, cooperative after 1 hour. Allowed vital signs and poc checks. Pt sitting up in bed, bed alarm on. Had refused breakfast and AM meds but did eat some lunch.
[2024-06-18] MEDS: Insulin Lispro 100 UNIT/ML 3 ML VIAL SUBCUT ×2 (12:30→17:04)
--- NOTE | 2024-06-18 13:51 | MHC.CM.PN ---
EMR reviewed and per MD rounds, pt is awaiting MH application for LTC placement. Referrals are out, no current bed offers. Pt had court date today, permanent guardian in place, continued temporary conservatorship.
[2024-06-18 15:51] VITALS: BP 128/58; PULSE 85; RESP 18; TEMP 36.4; O2SAT 96
[2024-06-18 16:18] LABS: Appearance Urine Clear; Color Urine Yellow; Glucose Urine UA >=1000 mg/dL (Negative); Leukocyte Esterase Urine Negative (Negative); Nitrite Urine Negative (Negative); PH 5.5 (5.0-9.0); Specific Gravity - Urine >= 1.030 (1.005-1.025); UMIC TRIGGER UACC YES; Urine Blood Negative (Negative); Urine Ketones Negative (Negative); Urine Protein Negative (Neg-Trace)
[2024-06-18 16:26] LABS: Glucose, Whole Blood 263 mg/dL (60-115)
[2024-06-18 17:10] LABS: Bacteria Urine None Seen (None Seen); Hyaline Casts Urine 0-2 /LPF (0-2); RBC Urine 0-2 /HPF (0-2); Squamous Epithelial Cell Urine 0-2 /HPF (0-2); WBC Urine 0-5 /HPF (0-5)
[2024-06-18 19:18] VITALS: BP 139/63; PULSE 83; RESP 18; TEMP 36.2; O2SAT 97
[2024-06-18 20:20] LABS: Glucose, Whole Blood 146 mg/dL (60-115)
[2024-06-18] MEDS: glipiZIDE 10 MG TABLET PO (20:42)
[2024-06-18] MEDS: Donepezil HCl 5 MG TABLET PO (20:42)
[2024-06-18] MEDS: Atorvastatin Calcium 10 MG TABLET PO (20:42)
[2024-06-18] MEDS: Docusate Sodium 100 MG CAPSULE PO (20:42)
[2024-06-18] MEDS: Melatonin 3 MG TABLET PO (20:42)
[2024-06-18] MEDS: Fluticasone Propionate Nasal 16 GM SPRAY 1 SPRAY NOSTRIL-B (20:42)
[2024-06-18] MEDS: Hydrocortisone 2.5 % Rectal Cr 30 GM TUBE 1 APPL PR (20:52)
[2024-06-19] MEDS: Butalb/Acetamin/Caff 50/325/40 TABLET 1 TAB PO ×2 (06:07→16:04)
[2024-06-19] MEDS: Omeprazole 20 MG CAPSULE.DR PO (06:07)
[2024-06-19 07:21] VITALS: BP 141/63; PULSE 68; RESP 18; TEMP 36.2; O2SAT 96
[2024-06-19 07:25] LABS: Glucose, Whole Blood 117 mg/dL (60-115)
[2024-06-19] MEDS: SITagliptin Phosphate 100 MG TABLET PO (08:26)
[2024-06-19] MEDS: Empagliflozin 10 MG TABLET PO (08:26)
[2024-06-19] MEDS: glipiZIDE 10 MG TABLET PO ×2 (08:26→19:28)
[2024-06-19] MEDS: polyethylene glycoL 3350 17 GM POWD.PACK PO (08:26)
[2024-06-19] MEDS: Aspirin Enteric Coated 81 MG TABLET.DR PO (08:26)
[2024-06-19] MEDS: Docusate Sodium 100 MG CAPSULE PO ×2 (08:26→19:28)
[2024-06-19] MEDS: Fluticasone Propionate Nasal 16 GM SPRAY 1 SPRAY NOSTRIL-B (08:26)
--- NOTE | 2024-06-19 10:35 | P.PNIM_ITS ---
Subjective Subjective Date of Service: 06/19/24 Interval History: Pt was very agitated, combative, aggressive yesterday, hitting, scratching and resisting care and required IM zyprexa, she was good for the rest of the day, but is starting to become more agitated again this morning Physical Exam 2 Vital Signs: Vital Signs: Last Vital Signs Temp 97.2 F 06/19/24 07:21 Pulse 68 06/19/24 07:21 Resp 18 06/19/24 07:21 BP 141/63 H 06/19/24 07:21 Pulse Ox 96 06/19/24 07:21 O2 Del Method Room Air 06/19/24 07:21 BMI result Body Mass Index 24.5 Sitting in chair, yelling, and uncooperative with exam Objective Data Active Medications Acetaminophen (Acetaminophen 325 Mg Tablet) 650 mg PO Q4H PRN PRN Reason: headache or pain Last Admin: 05/19/24 20:33 Dose: 650 mg Acetaminophen/Butalbital/Caffeine (Butalb/Acetamin/Caff 50/325/40 Tablet) 1 tab PO Q4H PRN PRN Reason: Headache Last Admin: 06/19/24 06:07 Dose: 1 tab Documented By: LIZZIE Amitriptyline HCl (Amitriptyline Hcl 25 Mg Tablet) 25 mg PO BEDTIME [facility] Last Admin: 06/18/24 20:47 Dose: Not Given Documented By: LIZZIE Non-Admin Reason: Patient Refused Aspirin (Aspirin Enteric Coated 81 Mg Tablet.) 81 mg PO DAILY [facility] Last Admin: 06/19/24 08:26 Dose: 81 mg Documented By: RICHIE Atorvastatin Calcium (Atorvastatin Calcium 10 Mg Tablet) 10 mg PO BEDTIME [facility] Last Admin: 06/18/24 20:42 Dose: 10 mg Documented By: LIZZIE Docusate Sodium (Docusate Sodium 100 Mg Capsule) 100 mg PO BID [facility] Last Admin: 06/19/24 08:26 Dose: 100 mg Documented By: RICHIE Donepezil HCl (Donepezil Hcl 5 Mg Tablet) 5 mg PO BEDTIME [facility] Last Admin: 06/18/24 20:42 Dose: 5 mg Documented By: LIZZIE Empagliflozin (Empagliflozin 10 Mg Tablet) 10 mg PO DAILY [facility] Last Admin: 06/19/24 08:26 Dose: 10 mg Documented By: RICHIE Enoxaparin Sodium (Enoxaparin Sodium 40 Mg/0.4 Ml Syringe) 40 mg SUBCUT Q24H [facility] Last Admin: 06/19/24 08:29 Dose: Not Given Documented By: RICHIE Non-Admin Reason: Patient Refused Fluticasone Propionate (Fluticasone Propionate Nasal 16 Gm [place]) 1 spray NOSTRIL-B BID [facility] Last Admin: 06/19/24 08:26 Dose: 1 spray Documented By: RICHIE Glipizide (Glipizide 10 Mg Tablet) 10 mg PO BID [facility] Last Admin: 06/19/24 08:26 Dose: 10 mg Documented By: RICHIE Glucose (Glucose Gel 15 Gm Gel..Gram.) 15 gm PO Q15M PRN; Protocol PRN Reason: per Hypoglycemia Standing Ord. Hydrocortisone (Hydrocortisone 2.5 % Rectal Cr 30 Gm Tube) 1 appl HI BID PRN PRN Reason: Hemorrhoids Last Admin: 06/18/24 20:52 Dose: 1 appl Documented By: LIZZIE Dextrose (D10) 250 mls @ 750 mls/hr IV Q15M PRN; Protocol PRN Reason: per Hypoglycemia Standing Ord. Insulin Human Lispro (Insulin Lispro 100 Unit/Ml 3 Ml Vial) 0 unit SUBCUT QIDACHS [facility]; Protocol Last Admin: 06/19/24 07:27 Dose: Not Given Documented By: RICHIE Non-Admin Reason: poc oor Lactulose (Lactulose 20 Gm/30 Ml Solution) 10 gm PO DAILY PRN PRN Reason: Constipation Last Admin: 06/12/24 20:23 Dose: 10 gm Melatonin (Melatonin 3 Mg Tablet) 3 mg PO BEDTIME PRN PRN Reason: Insomnia Last Admin: 06/18/24 20:42 Dose: 3 mg Documented By: LIZZIE Multi-Ingred Medicated Throat [place] (Throat [place], Medicated 177 Ml Bottle) 1 spray MUCOUS MEM Q2H PRN PRN Reason: throat irritaion Last Admin: 05/30/24 13:05 Dose: 1 spray Documented By: COTEMA Nitroglycerin (Nitroglycerin 0.4 Mg Tab.Subl) 0.4 mg SUBLINGUAL Q5M PRN PRN Reason: angina Omeprazole (Omeprazole 20 Mg Capsule.Dr) 20 mg PO DAILY@0630 [facility] Last Admin: 06/19/24 06:07 Dose: 20 mg Documented By: LIZZIE Polyethylene Glycol (Polyethylene Glycol 3350 17 Gm Powd.Pack) 17 gm PO DAILY [facility] Last Admin: 06/19/24 08:26 Dose: 17 gm Documented By: RICHIE Risperidone (Risperidone 0.5 Mg Tablet) 0.5 mg PO TID [facility] Senna (Sennosides 8.6 Mg Tablet) 8.6 mg PO DAILY PRN PRN Reason: Constipation Last Admin: 06/12/24 00:51 Dose: 8.6 mg Sitagliptin Phosphate (Sitagliptin Phosphate 100 Mg Tablet) 100 mg PO DAILY [facility] Last Admin: 06/19/24 08:26 Dose: 100 mg Documented By: RICHIE Trolamine Salicylate (Trolamine Salicylate 10 % Cream 141 Gm Tube) 1 appl TOPICAL BID PRN; Protocol PRN Reason: both shoulders Last Admin: 06/12/24 20:15 Dose: 1 appl Documented By: MACARIO Labs 06/15/24 09:53 06/15/24 09:53 Labs: Laboratory Results - last 24 hr 06/18/24 06/18/24 06/18/24 11:11 16:08 16:21 POC Glucose 165 H 263 H Urine Color Yellow Urine Appearance Clear Urine pH 5.5 Ur Specific [place] >= 1.030 H Urine Protein Negative Urine Glucose (UA) >=1000 H Urine Ketones Negative Urine Blood Negative Urine Nitrite Negative Ur Leukocyte Esterase Negative Urine RBC 0-2 Urine WBC 0-5 Ur Squamous Epith Cells 0-2 Urine Bacteria None Seen Hyaline Casts 0-2 06/18/24 06/19/24 20:11 07:22 POC Glucose 146 H 117 H Urine Color Urine Appearance Urine pH Ur Specific [place] Urine Protein Urine Glucose (UA) Urine Ketones Urine Blood Urine Nitrite Ur Leukocyte Esterase Urine RBC Urine WBC Ur Squamous Epith Cells Urine Bacteria Hyaline Casts Assessment and Plan (1) Cognitive impairment: Status: Acute (2) Glaucoma of both eyes: Status: Acute Plan 88yo F with vascular dementia, diabetes, hypertension, hyperlipidemia, and peptic ulcer disease presented with mechanical fall on 03/24/24 and found to have left foot fracture, and has since been awaiting safe placement pending conservatorship Vascular dementia with behavioral disturbance -[place] Cognitive Assessment (MoCA) is 08/02 = Severe Cognitive Impairment -lacks capacity to make sound medical decision and has a permanent guardian now -Risperidal 0.5 tid added 06/19 by Psych -Zyprexa PRN for exteme agitation Mechanical fall on 06/04 trying to get out of bed, -CT of head, neck and hip no acute injury, recommend ambulation with staff t.i.d. DM2--conrolled Hba1c 7.7 continue GPZ, empagliflozin, sitagliptin, and SSI. L foot fx--> 8 wks, Ortho recommends boot, no intervention, WBAT. bilateral shoulder pain/likely due to osteoarthritis. on Aspercreme/Tylenol OT recommends ROM exercises. Constipation--continue lactulose VTE ppx LMWH--she typically refuses, but notes that she ambulates with staff Dispo: Ultimately LTC Need for inpt: placement pending Periodic labs check, CBC, BMP 06/15, unremarkable Awaiting placement Quality Stroke Does the patient have a stroke diagnosis?: No VTE Prior VTE?: No VTE Risk Level:: Medical - moderate - high VTE Device Contraindication: Treatment Not Indicated VTE Drug Contraindication: N/A - Med Ordered
[2024-06-19 11:48] LABS: Glucose, Whole Blood 228 mg/dL (60-115)
--- NOTE | 2024-06-19 11:51 | PC.NURSE ---
Pt belonging brought up stairs and secured in the locker per .
[2024-06-19] MEDS: Insulin Lispro 100 UNIT/ML 3 ML VIAL SUBCUT ×2 (11:53→19:36)
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
[2024-06-19] MEDS: risperiDONE 0.5 MG TABLET PO ×2 (16:01→19:28)
[2024-06-19 16:10] LABS: Glucose, Whole Blood 149 mg/dL (60-115)
[2024-06-19 19:28] VITALS: BP 123/58; PULSE 94; RESP 18; TEMP 36.6; O2SAT 96
[2024-06-19] MEDS: Melatonin 3 MG TABLET PO (19:28)
[2024-06-19] MEDS: Donepezil HCl 5 MG TABLET PO (19:28)
[2024-06-19] MEDS: Atorvastatin Calcium 10 MG TABLET PO (19:28)
[2024-06-19 20:13] LABS: Glucose, Whole Blood 182 mg/dL (60-115)
--- NOTE | 2024-06-19 21:36 | PC.NURSE ---
Assumed care of patient at 19:00. Handoff report given at 21:30. Please see shift assessment, task, and MAR for full details.
[2024-06-20] MEDS: Omeprazole 20 MG CAPSULE.DR PO (05:50)
--- NOTE | 2024-06-20 07:00 | PC.NURSE ---
patient broke glasses, all pieces found and on bedside table.
--- NOTE | 2024-06-20 07:31 | P.PNIM_ITS ---
Subjective Subjective Date of Service: 06/20/24 Interval History: No agitation as of this morning, calm and cooperative Physical Exam 2 Vital Signs: Vital Signs: Last Vital Signs Temp 97.8 F 06/19/24 19:28 Pulse 94 06/19/24 19:28 Resp 18 06/19/24 19:28 BP 123/58 L 06/19/24 19:28 Pulse Ox 96 06/19/24 19:28 O2 Del Method Room Air 06/19/24 19:28 BMI result Body Mass Index 24.5 Sitting in chair, yelling, and uncooperative with exam Const: Other: General: alert and oriented , in no acute distress Anicteric sclera Resp: CTA bilateral CVS: S1,S2,RRR GI: +BS, NT, no distention Skin: No rash, no skin tear, no bruse MSK: limited range of motion bilateral upper extremity. Neuro: motor grossly intact, speech clear Psych: appropriate affect Objective Data Active Medications Acetaminophen (Acetaminophen 325 Mg Tablet) 650 mg PO Q4H PRN PRN Reason: headache or pain Last Admin: 05/19/24 20:33 Dose: 650 mg Acetaminophen/Butalbital/Caffeine (Butalb/Acetamin/Caff 50/325/40 Tablet) 1 tab PO Q4H PRN PRN Reason: Headache Last Admin: 06/19/24 16:04 Dose: 1 tab Documented By: RICHIE Amitriptyline HCl (Amitriptyline Hcl 25 Mg Tablet) 25 mg PO BEDTIME [facility] Last Admin: 06/19/24 19:33 Dose: Not Given Documented By: LORA Non-Admin Reason: Patient Refused Aspirin (Aspirin Enteric Coated 81 Mg Tablet.) 81 mg PO DAILY [facility] Last Admin: 06/19/24 08:26 Dose: 81 mg Documented By: RICHIE Atorvastatin Calcium (Atorvastatin Calcium 10 Mg Tablet) 10 mg PO BEDTIME [facility] Last Admin: 06/19/24 19:28 Dose: 10 mg Documented By: LORA Docusate Sodium (Docusate Sodium 100 Mg Capsule) 100 mg PO BID [facility] Last Admin: 06/19/24 19:28 Dose: 100 mg Documented By: LORA Donepezil HCl (Donepezil Hcl 5 Mg Tablet) 5 mg PO BEDTIME [facility] Last Admin: 06/19/24 19:28 Dose: 5 mg Documented By: LORA Empagliflozin (Empagliflozin 10 Mg Tablet) 10 mg PO DAILY [facility] Last Admin: 06/19/24 08:26 Dose: 10 mg Documented By: RICHIE Enoxaparin Sodium (Enoxaparin Sodium 40 Mg/0.4 Ml Syringe) 40 mg SUBCUT Q24H [facility] Last Admin: 06/19/24 08:29 Dose: Not Given Documented By: RICHIE Non-Admin Reason: Patient Refused Fluticasone Propionate (Fluticasone Propionate Nasal 16 Gm [place]) 1 spray NOSTRIL-B BID [facility] Last Admin: 06/19/24 19:39 Dose: Not Given Documented By: LORA Non-Admin Reason: Patient Refused Glipizide (Glipizide 10 Mg Tablet) 10 mg PO BID [facility] Last Admin: 06/19/24 19:28 Dose: 10 mg Documented By: LORA Glucose (Glucose Gel 15 Gm Gel..Gram.) 15 gm PO Q15M PRN; Protocol PRN Reason: per Hypoglycemia Standing Ord. Hydrocortisone (Hydrocortisone 2.5 % Rectal Cr 30 Gm Tube) 1 appl [place] BID PRN PRN Reason: Hemorrhoids Last Admin: 06/18/24 20:52 Dose: 1 appl Documented By: LIZZIE Dextrose (D10) 250 mls @ 750 mls/hr IV Q15M PRN; Protocol PRN Reason: per Hypoglycemia Standing Ord. Insulin Human Lispro (Insulin Lispro 100 Unit/Ml 3 Ml Vial) 0 unit SUBCUT QIDACHS [facility]; Protocol Last Admin: 06/19/24 19:36 Dose: 2 unit Documented By: LORA Lactulose (Lactulose 20 Gm/30 Ml Solution) 10 gm PO DAILY PRN PRN Reason: Constipation Last Admin: 06/12/24 20:23 Dose: 10 gm Melatonin (Melatonin 3 Mg Tablet) 3 mg PO BEDTIME PRN PRN Reason: Insomnia Last Admin: 06/19/24 19:28 Dose: 3 mg Documented By: LORA Multi-Ingred Medicated Throat [place] (Throat [place], Medicated 177 Ml Bottle) 1 spray MUCOUS MEM Q2H PRN PRN Reason: throat irritaion Last Admin: 05/30/24 13:05 Dose: 1 spray Documented By: GINO Nitroglycerin (Nitroglycerin 0.4 Mg Tab.Subl) 0.4 mg SUBLINGUAL Q5M PRN PRN Reason: angina Olanzapine (Olanzapine 10 Mg Vial) 2.5 mg IM Q12H PRN PRN Reason: Restlessness Omeprazole (Omeprazole 20 Mg Capsule.) 20 mg PO DAILY@0630 [facility] Last Admin: 06/20/24 05:50 Dose: 20 mg Documented By: LEIGHA Polyethylene Glycol (Polyethylene Glycol 3350 17 Gm Powd.Pack) 17 gm PO DAILY [facility] Last Admin: 06/19/24 08:26 Dose: 17 gm Documented By: RICHIE Risperidone (Risperidone 0.5 Mg Tablet) 0.5 mg PO TID [facility] Last Admin: 06/19/24 19:28 Dose: 0.5 mg Documented By: LORA Senna (Sennosides 8.6 Mg Tablet) 8.6 mg PO DAILY PRN PRN Reason: Constipation Last Admin: 06/12/24 00:51 Dose: 8.6 mg Sitagliptin Phosphate (Sitagliptin Phosphate 100 Mg Tablet) 100 mg PO DAILY [facility] Last Admin: 06/19/24 08:26 Dose: 100 mg Documented By: RICHIE Trolamine Salicylate (Trolamine Salicylate 10 % Cream 141 Gm Tube) 1 appl TOPICAL BID PRN; Protocol PRN Reason: both shoulders Last Admin: 06/12/24 20:15 Dose: 1 appl Documented By: MACARIO Labs 06/15/24 09:53 06/15/24 09:53 Labs: Laboratory Results - last 24 hr 06/19/24 06/19/24 06/19/24 11:44 16:07 19:31 POC Glucose 228 H 149 H 182 H Assessment and Plan (1) Cognitive impairment: Status: Acute (2) Glaucoma of both eyes: Status: Acute Plan 88yo F with vascular dementia, diabetes, hypertension, hyperlipidemia, and peptic ulcer disease presented with mechanical fall on 03/24/24 and found to have left foot fracture, and has since been awaiting safe placement pending conservatorship Vascular dementia with intermittent behavioral disturbance -[place] Cognitive Assessment (MoCA) is 08/02 = Severe Cognitive Impairment -lacks capacity to make sound medical decision and has a permanent guardian now -Risperidal 0.5 tid added 06/19 by Psych -Zyprexa PRN for exteme agitation Mechanical fall on 06/04 trying to get out of bed, -CT of head, neck and hip no acute injury, recommend ambulation with staff t.i.d. DM2--conrolled Hba1c 7.7 continue GPZ, empagliflozin, sitagliptin, and SSI. L foot fx--> 8 wks, Ortho recommends boot, no intervention, WBAT. bilateral shoulder pain/likely due to osteoarthritis. on Aspercreme/Tylenol OT recommends ROM exercises. Constipation--continue lactulose VTE ppx LMWH--she typically refuses, but notes that she ambulates with staff Dispo: Ultimately LTC Need for inpt: placement pending, permanent guardianship secured on 06/18 Periodic labs check, CBC, BMP 06/15, unremarkable Awaiting placement Quality Stroke Does the patient have a stroke diagnosis?: No VTE Prior VTE?: No VTE Risk Level:: Medical - moderate - high VTE Device Contraindication: Treatment Not Indicated VTE Drug Contraindication: N/A - Med Ordered
[2024-06-20 07:38] LABS: Glucose, Whole Blood 129 mg/dL (60-115)
[2024-06-20] MEDS: Docusate Sodium 100 MG CAPSULE PO ×2 (07:45→21:02)
[2024-06-20] MEDS: Aspirin Enteric Coated 81 MG TABLET.DR PO (07:45)
[2024-06-20] MEDS: SITagliptin Phosphate 100 MG TABLET PO (07:45)
[2024-06-20] MEDS: Empagliflozin 10 MG TABLET PO (07:45)
[2024-06-20] MEDS: risperiDONE 0.5 MG TABLET PO ×2 (07:45→21:02)
[2024-06-20] MEDS: glipiZIDE 10 MG TABLET PO ×2 (07:45→21:02)
[2024-06-20] MEDS: Butalb/Acetamin/Caff 50/325/40 TABLET 1 TAB PO ×2 (07:46→22:22)
[2024-06-20] MEDS: Fluticasone Propionate Nasal 16 GM SPRAY 1 SPRAY NOSTRIL-B (07:49)
[2024-06-20 08:00] VITALS: BP 144/66; PULSE 81; RESP 18; TEMP 36.9; O2SAT 94
--- NOTE | 2024-06-20 08:32 | PC.NURSE ---
This adjusto writer operator was able to tape together her broken glasses as a temp fix.
[2024-06-20 11:37] LABS: Glucose, Whole Blood 178 mg/dL (60-115)
[2024-06-20] MEDS: Insulin Lispro 100 UNIT/ML 3 ML VIAL SUBCUT ×2 (11:37→21:02)
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
--- NOTE | 2024-06-20 15:20 | PC.NURSE ---
MD aware of patients poor behavior.
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
--- NOTE | 2024-06-20 18:42 | PC.NURSE ---
Pt ambulated to nurses station to call sister per request. Pt called sister twice and sister did not answer phone call.
[2024-06-20 20:25] LABS: Glucose, Whole Blood 179 mg/dL (60-115)
[2024-06-20] MEDS: Atorvastatin Calcium 10 MG TABLET PO (21:02)
[2024-06-20] MEDS: Donepezil HCl 5 MG TABLET PO (21:02)
[2024-06-20] MEDS: Amitriptyline HCl 25 MG TABLET PO (21:02)
[2024-06-21 05:08] VITALS: BP 153/72; PULSE 86; RESP 14; TEMP 36; O2SAT 96
[2024-06-21] MEDS: Omeprazole 20 MG CAPSULE.DR PO (05:45)
[2024-06-21] MEDS: Butalb/Acetamin/Caff 50/325/40 TABLET 1 TAB PO ×3 (05:50→20:07)
[2024-06-21 07:49] VITALS: BP 142/67; PULSE 87; RESP 20; TEMP 36.6; O2SAT 96
[2024-06-21 07:53] LABS: Glucose, Whole Blood 134 mg/dL (60-115)
[2024-06-21] MEDS: SITagliptin Phosphate 100 MG TABLET PO (07:58)
[2024-06-21] MEDS: Aspirin Enteric Coated 81 MG TABLET.DR PO (07:58)
[2024-06-21] MEDS: risperiDONE 0.5 MG TABLET PO ×3 (07:58→20:07)
[2024-06-21] MEDS: Empagliflozin 10 MG TABLET PO (07:58)
[2024-06-21] MEDS: glipiZIDE 10 MG TABLET PO ×2 (07:58→20:08)
[2024-06-21] MEDS: Docusate Sodium 100 MG CAPSULE PO ×2 (07:58→20:08)
[2024-06-21] MEDS: Fluticasone Propionate Nasal 16 GM SPRAY 1 SPRAY NOSTRIL-B (08:01)
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
--- NOTE | 2024-06-21 11:26 | MHC.CM.PN ---
Patient continues to await LTC placement. [facility] is pending. CM will continue to follow.
[2024-06-21 11:42] LABS: Glucose, Whole Blood 199 mg/dL (60-115)
[2024-06-21] MEDS: Insulin Lispro 100 UNIT/ML 3 ML VIAL SUBCUT ×2 (11:46→16:37)
[2024-06-21 15:14] VITALS: BP 119/58; PULSE 95; RESP 18; TEMP 36.7; O2SAT 97
[2024-06-21 15:57] LABS: Glucose, Whole Blood 255 mg/dL (60-115)
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
[2024-06-21 19:05] VITALS: BP 123/57; PULSE 89; RESP 16; TEMP 36.6; O2SAT 98
[2024-06-21] MEDS: Atorvastatin Calcium 10 MG TABLET PO (20:07)
[2024-06-21] MEDS: Donepezil HCl 5 MG TABLET PO (20:08)
[2024-06-21] MEDS: Amitriptyline HCl 25 MG TABLET PO (20:08)
[2024-06-21 20:35] LABS: Glucose, Whole Blood 93 mg/dL (60-115)
[2024-06-22 03:52] VITALS: BP 152/69; PULSE 85; RESP 18; TEMP 36.1; O2SAT 95
[2024-06-22 07:18] VITALS: BP 149/65; PULSE 86; RESP 20; TEMP 36.3; O2SAT 96
[2024-06-22 07:41] LABS: Glucose, Whole Blood 98 mg/dL (60-115)
[2024-06-22] MEDS: Aspirin Enteric Coated 81 MG TABLET.DR PO (08:05)
[2024-06-22] MEDS: SITagliptin Phosphate 100 MG TABLET PO (08:06)
[2024-06-22] MEDS: risperiDONE 0.5 MG TABLET PO ×3 (08:06→21:26)
[2024-06-22] MEDS: glipiZIDE 10 MG TABLET PO (08:06)
[2024-06-22] MEDS: Empagliflozin 10 MG TABLET PO (08:06)
[2024-06-22] MEDS: Docusate Sodium 100 MG CAPSULE PO ×2 (08:06→21:25)
[2024-06-22] MEDS: Fluticasone Propionate Nasal 16 GM SPRAY 1 SPRAY NOSTRIL-B ×2 (08:07→22:00)
[2024-06-22] MEDS: Lactulose 20 GM/30 ML SOLUTION 10 GM PO (08:10)
--- NOTE | 2024-06-22 10:43 | HO.PM.IMPN ---
Subjective Subjective Date of Service: 06/22/24 Interval History: She has been fairly calm the last couple of days Physical Exam Vital Signs: Vital Signs: Last Vital Signs Temp 97.3 F 06/22/24 07:18 Pulse 86 06/22/24 07:18 Resp 20 06/22/24 07:18 BP 149/65 H 06/22/24 07:18 Pulse Ox 96 06/22/24 07:18 O2 Del Method Room Air 06/22/24 03:52 BMI result Body Mass Index 24.5 Sitting in chair, yelling, and uncooperative with exam Const: Other: General: alert and oriented , in no acute distress Anicteric sclera Resp: CTA bilateral CVS: S1,S2,RRR GI: +BS, NT, no distention Skin: No rash, no skin tear, no bruse MSK: limited range of motion bilateral upper extremity. Neuro: motor grossly intact, speech clear Psych: appropriate affect Objective Data Active Medications Acetaminophen (Acetaminophen 325 Mg Tablet) 650 mg PO Q4H PRN PRN Reason: headache or pain Last Admin: 05/19/24 20:33 Dose: 650 mg Acetaminophen/Butalbital/Caffeine (Butalb/Acetamin/Caff 50/325/40 Tablet) 1 tab PO Q4H PRN PRN Reason: Headache Last Admin: 06/21/24 20:07 Dose: 1 tab Documented By: CADY Amitriptyline HCl (Amitriptyline Hcl 25 Mg Tablet) 25 mg PO BEDTIME [facility] Last Admin: 06/21/24 20:08 Dose: 25 mg Documented By: CADY Aspirin (Aspirin Enteric Coated 81 Mg Tablet.) 81 mg PO DAILY [facility] Last Admin: 06/22/24 08:05 Dose: 81 mg Documented By: GINO Atorvastatin Calcium (Atorvastatin Calcium 10 Mg Tablet) 10 mg PO BEDTIME [facility] Last Admin: 06/21/24 20:07 Dose: 10 mg Documented By: CADY Docusate Sodium (Docusate Sodium 100 Mg Capsule) 100 mg PO BID [facility] Last Admin: 06/22/24 08:06 Dose: 100 mg Documented By: GINO Donepezil HCl (Donepezil Hcl 5 Mg Tablet) 5 mg PO BEDTIME [facility] Last Admin: 06/21/24 20:08 Dose: 5 mg Documented By: CADY Empagliflozin (Empagliflozin 10 Mg Tablet) 10 mg PO DAILY [facility] Last Admin: 06/22/24 08:06 Dose: 10 mg Documented By: GINO Enoxaparin Sodium (Enoxaparin Sodium 40 Mg/0.4 Ml Syringe) 40 mg SUBCUT Q24H [facility] Last Admin: 06/22/24 07:42 Dose: Not Given Documented By: COTEMA Non-Admin Reason: Patient Refused Fluticasone Propionate (Fluticasone Propionate Nasal 16 Gm [place]) 1 spray NOSTRIL-B BID [facility] Last Admin: 06/22/24 08:07 Dose: 1 spray Documented By: GINO Glipizide (Glipizide 10 Mg Tablet) 10 mg PO BID [facility] Last Admin: 06/22/24 08:06 Dose: 10 mg Documented By: GINO Glucose (Glucose Gel 15 Gm Gel..Gram.) 15 gm PO Q15M PRN; Protocol PRN Reason: per Hypoglycemia Standing Ord. Hydrocortisone (Hydrocortisone 2.5 % Rectal Cr 30 Gm Tube) 1 appl AR BID PRN PRN Reason: Hemorrhoids Last Admin: 06/18/24 20:52 Dose: 1 appl Documented By: LIZZIE Dextrose (D10) 250 mls @ 750 mls/hr IV Q15M PRN; Protocol PRN Reason: per Hypoglycemia Standing Ord. Insulin Human Lispro (Insulin Lispro 100 Unit/Ml 3 Ml Vial) 0 unit SUBCUT QIDACHS [facility]; Protocol Last Admin: 06/22/24 07:41 Dose: Not Given Documented By: COTEMA Non-Admin Reason: No Insulin Coverage Lactulose (Lactulose 20 Gm/30 Ml Solution) 10 gm PO DAILY PRN PRN Reason: Constipation Last Admin: 06/22/24 08:10 Dose: 10 gm Documented By: GINO Melatonin (Melatonin 3 Mg Tablet) 3 mg PO BEDTIME PRN PRN Reason: Insomnia Last Admin: 06/19/24 19:28 Dose: 3 mg Documented By: LORA Multi-Ingred Medicated Throat [place] (Throat [place], Medicated 177 Ml Bottle) 1 spray MUCOUS MEM Q2H PRN PRN Reason: throat irritaion Last Admin: 05/30/24 13:05 Dose: 1 spray Documented By: GINO Nitroglycerin (Nitroglycerin 0.4 Mg Tab.Subl) 0.4 mg SUBLINGUAL Q5M PRN PRN Reason: angina Omeprazole (Omeprazole 20 Mg Capsule.Dr) 20 mg PO DAILY@0630 [facility] Last Admin: 06/22/24 07:21 Dose: Not Given Documented By: GINO Non-Admin Reason: Patient Refused Polyethylene Glycol (Polyethylene Glycol 3350 17 Gm Powd.Pack) 17 gm PO DAILY [facility] Last Admin: 06/22/24 07:42 Dose: Not Given Documented By: GINO Non-Admin Reason: Patient Refused Risperidone (Risperidone 0.5 Mg Tablet) 0.5 mg PO TID [facility] Last Admin: 06/22/24 08:06 Dose: 0.5 mg Documented By: GINO Senna (Sennosides 8.6 Mg Tablet) 8.6 mg PO DAILY PRN PRN Reason: Constipation Last Admin: 06/12/24 00:51 Dose: 8.6 mg Sitagliptin Phosphate (Sitagliptin Phosphate 100 Mg Tablet) 100 mg PO DAILY [facility] Last Admin: 06/22/24 08:06 Dose: 100 mg Documented By: GINO Trolamine Salicylate (Trolamine Salicylate 10 % Cream 141 Gm Tube) 1 appl TOPICAL BID PRN; Protocol PRN Reason: both shoulders Last Admin: 06/12/24 20:15 Dose: 1 appl Documented By: CASTILM Labs 06/15/24 09:53 06/15/24 09:53 Labs: Laboratory Results - last 24 hr 06/21/24 06/21/24 06/21/24 11:38 15:53 20:19 POC Glucose 199 H 255 H 93 06/22/24 07:37 POC Glucose 98 Assessment and Plan (1) Major neurocognitive disorder: Status: Acute Plan 88yo F with vascular dementia, diabetes, hypertension, hyperlipidemia, and peptic ulcer disease presented with mechanical fall on 03/24/24 and found to have left foot fracture, and has since been awaiting safe placement pending conservatorship Vascular dementia with intermittent behavioral disturbance -[place] Cognitive Assessment (MoCA) is 08/02 = Severe Cognitive Impairment -lacks capacity to make sound medical decision and has a permanent guardian now -Risperidal 0.5 tid added 06/19 by Psych -Zyprexa PRN for exteme agitation Mechanical fall on 06/04 trying to get out of bed, -CT of head, neck and hip no acute injury, recommend ambulation with staff t.i.d. DM2--conrolled Hba1c 7.7 continue GPZ, empagliflozin, sitagliptin, and SSI. L foot fx--> 8 wks, Ortho recommends boot, no intervention, WBAT. bilateral shoulder pain/likely due to osteoarthritis. on Aspercreme/Tylenol OT recommends ROM exercises. Constipation--continue lactulose VTE ppx LMWH--she typically refuses, but notes that she ambulates with staff Dispo: Ultimately LTC Need for inpt: placement pending, permanent guardianship secured on 06/18 Periodic labs check, CBC, BMP 06/15, unremarkable Awaiting placement Quality Stroke Does the patient have a stroke diagnosis?: No VTE Prior VTE?: No VTE Risk Level:: Medical - moderate - high VTE Device Contraindication: Treatment Not Indicated VTE Drug Contraindication: N/A - Med Ordered
--- NOTE | 2024-06-22 10:50 | MHC.CM.PN ---
Addendum entered by Joie Cehn RN 06/22/24 16:17: Patient accepted by [facility]. [facility] and MDS complete. Transport scheduled for 06/23 at 10:30am. MD & guardian aware. Guardian requesting dc summary be faxed to [phone] Original Note: CM spoke w/ guardian/conservator Gaston. [facility] still pending, no response from [facility] at this time. Gaston requested referral to [facility]. She will also e-mail their admissions department. Referral sent via [facility]. CM will continue to follow.
[2024-06-22 11:44] LABS: Glucose, Whole Blood 213 mg/dL (60-115)
[2024-06-22] MEDS: Insulin Lispro 100 UNIT/ML 3 ML VIAL SUBCUT ×3 (12:24→21:26)
--- NOTE | 2024-06-22 15:53 | PM.DS ---
DS: Providers Provider Date of Service: 06/23/24 Date of admission: 03/24/24 15:20 Date of discharge: 06/23/24 Primary care physician: Unknown Physician Consults: 05/04/24 14:01 Consult to Orthopedics Routine Consulting Provider: [facility] [place] [facility] Reason for consultation: foot fracture from 8 wk ago, needs follow-up [pt is long-term placement] 06/01/24 09:03 Consult to Psychiatry Routine Consulting Provider: Psych Covering Reason for consultation: dementia with behavior issues, med management Has provider been notified: No DS: Diagnosis Discharge Diagnosis (1) Major neurocognitive disorder: Status: Acute DS: Summary Hospital Course Hospital Course: admission hpi Chief Complaint: Placement 88F PMH vascular dementia, diabetes, hypertension, hyperlipidemia, peptic ulcer disease presented with mechanical fall complicated by left Oblique mildly displaced fracture of the neck of the second metatarsal. She observed in the in hope of been able to discharged to rehab or SNF from this, but this proof difficulty as health care proxy could not be reached following repeat attemp. Patient was ultimately admitted and gurardianship pursued. hospital course has been mostly uncomplicated other than some periods of agitation. problems: She has Vascular dementia with intermittent behavioral disturbance -[place] Cognitive Assessment (MoCA) is 08/02 = Severe Cognitive Impairment -lacks capacity to make sound medical decision and has a permanent guardian now ,Gaston [facility] , -she is on Risperidal 0.5 tid per Psych recommendation and is controlling her behavior well Mechanical fall on 06/04 trying to get out of bed, -CT of head, neck and hip no acute injury, recommend ambulation with staff tid, she does well with walker Type 2 diabetes--controlled. Hemoglobine A1 c is 7.7 continue Glipixzide, empagliflozin, sitagliptin, and SSI. Left mildly displaced fracture of the neck of the second metatarsal. She was evaluated by ortho and the injury deemed older than 8 weeks and didn't need intervention. They recommended weight bearing as tolerated. She has been walking without difficlty bilateral shoulder pain/likely due to osteoarthritis. on Aspercreme/Tylenol as needed Constipation--continue lactulose Patient's hospital stay has been long due to obtaining guardianship through court and placement, NOT due to acute medical issues. Time Attestation Discharge Coordination Time (in mins): 40 Quality: Safe Use of Opioids Does Pt have an Active Cancer Diagnosis on the Problem List?: No Quality: Stroke Does the patient have a stroke diagnosis?: No Physical Exam Vital Signs: Vital Signs: Neck: Other: Selected Entries 06/23/24 08:21 Temperature 97 F Pulse Rate 100 Respiratory Rate 18 Blood Pressure 154/69 H Pulse Oximetry 98 Oxygen Delivery Me thod Room Air DS: Data Data Completed and Pending Labs on day of discharge: Laboratory Results - last 24 hr 06/21/24 06/21/24 06/22/24 15:53 20:19 07:37 POC Glucose 255 H 93 98 06/22/24 11:20 POC Glucose 213 H Discharge Plan Discharge Anticipated Discharge Date/Time: 06/23/24 08:46 Patient Disposition: Xfer SNF Discharge Diagnosis: cognitive impairment, Dementia Referrals: Physician,Unknown J [Primary Care Provider] - 1 Week Discharge Medications: New donepezil 5 mg Tablet 5 mg PO BEDTIME Qty: 30 0RF risperidone 0.5 mg Tablet 0.5 mg PO TID Qty: 90 0RF trolamine salicylate [Aspercreme] 10 % Cream 1 appl topical BID PRN (Reason: both shoulders) Qty: 35.4 0RF Protocol: Apply to: Apply to: both shoulders fluticasone propionate 50 mcg/actuation [place],Suspension 1 spray intranasal BID Qty: 1 0RF lactulose 20 gram/30 mL Solution 10 g PO DAILY PRN (Reason: Constipation) Qty: 1200 0RF docusate sodium 100 mg Capsule 100 mg PO BID Qty: 20 0RF polyethylene glycol 3350 17 gram Powder In Packet 17 g PO DAILY Qty: 14 0RF hydrocortisone [Proctozone-HC] 2.5 % Cream With Perineal Applicator 1 appl MA BID PRN (Reason: Hemorrhoids) Qty: 30 0RF insulin lispro [Admelog U-100 Insulin lispro] 100 unit/mL Solution See Protocol subcut QIDACHS Qty: 10 0RF Protocol: Insulin Correction Scale Less than or equal to 110 ---- Give (units): 0 111 to 150 Give (units): 0 151 to 200 Give (units): 2 201 to 250 Give (units): 4 251 to 300 Give (units): 6 301 to 350 Give (units): 8 Greater than 350 Give (units): 10 Call MD if Blood Glucose > : 350 Rx Instructions: BG <111 0 units, 111-150 - 0 units, 151-200 2 units, 201-250 4 units, 251-300 6 units, 301-350 8 units, >350 10 units Continued acetaminophen 325 mg tablet 325 mg PO Q6H PRN (Reason: pain) atorvastatin 10 mg tablet 10 mg PO DAILY glipizide 10 mg tablet 10 mg PO BID melatonin 3 mg tablet 3 mg PO BEDTIME PRN (Reason: Insomnia) aspirin 81 mg tablet,delayed release (DR/EC) 81 mg PO DAILY amitriptyline 25 mg tablet 25 mg PO BEDTIME Januvia 100 mg tablet 100 mg PO DAILY Jardiance 10 mg tablet 10 mg PO DAILY nitroglycerin 0.4 mg tablet, sublingual 0.4 mg sublingual Q5M PRN (Reason: angina) omeprazole 20 mg capsule,delayed release(DR/EC) 20 mg PO DAILY No Action (DME) Dexcom G7 Sensor Device MISCELLANEOUS Q2W Discharge Orders: Discharge Order (Routine); Ordered 06/23/24 Ordered By: Dilan Garcia Diet: Diabetic diet Activity on Discharge: As tolerated Stand Alone Forms: Patient Portal Discharge page Print Language: [place] Care Plan Goals: safe disposition Health Concerns: Neurocognitive impairment, dementia Plan of Treatment: to penitentiary care continue all present medication health care decisions deffered to guardian Assessment: see gael
[2024-06-22 16:00] VITALS: BP 123/73; PULSE 95; RESP 18; TEMP 36.8; O2SAT 97
[2024-06-22 16:39] LABS: Glucose, Whole Blood 276 mg/dL (60-115)
[2024-06-22 18:19] LABS: Hematocrit 40.6 % (37.0-47.0); Hemoglobin 13.1 g/dl (12.0-16.0); Mean Corpuscular HGB Conc 32.3 g/dl (31.0-35.0); Mean Corpuscular Volume 92.9 fL (80.0-98.0); Platelet Count 363 X10*3/uL (160-400); Red Blood Count 4.37 X10*6/uL (4.20-5.50); Red Cell Distribution Width 13.4 % (11.0-16.0); White Blood Count 7.3 X10*3/uL (4.8-10.8)
[2024-06-22 18:35] LABS: Anion Gap 14 (12-20); Blood Urea Nitrogen 13 mg/dL (9-16); Calcium 9.8 mg/dL (8.4-10.2); Carbon Dioxide 23 mmol/L (22-29); Chloride 108 mmol/L (96-108); Creatinine Clr Calc Pharmacy 41.2; Estimated Glomerular Filt Rate > 60; Glucose Random 297 mg/dL (60-115); Potassium 3.7 mmol/L (3.3-5.1); Sodium 141 mmol/L (135-145)
--- NOTE | 2024-06-22 19:23 | PC.NURSE ---
Assumed care of patient 09:30 Pt A+Ox2, confused to month of the year. Pt able to explain some of situation and is aware of guardianship appointment. Pt ate >50% meals, ambulated voided in bathroom, given Lactulose for constipation by previous nurse and passed a bowel movement 06/22/24. Pt calm and cooperative. 17:00 Pt states she wants to go the the bathroom and then leave. Pt was redirectable by staff CNAs. Pt ambulated in hallway with staff 11:00 and 17:30
[2024-06-22 19:59] LABS: Glucose, Whole Blood 162 mg/dL (60-115)
[2024-06-22] MEDS: Donepezil HCl 5 MG TABLET PO (21:26)
[2024-06-22] MEDS: Hydrocortisone 2.5 % Rectal Cr 30 GM TUBE 1 APPL PR (22:00)
[2024-06-22 23:18] VITALS: BP 126/70; PULSE 95; RESP 18; TEMP 36.3; O2SAT 95
[2024-06-23] MEDS: Omeprazole 20 MG CAPSULE.DR PO (06:19)
--- NOTE | 2024-06-23 06:31 | PC.NURSE ---
Assumed care of patient since 1845. Patient AAOX2-3 had an uneventful night. She took her medications whole with water with no difficulties. She remains calm and bed resting with eyes closed. No attempts were made to leave the bed. No signs of agitation were noted. VSS. No signs of acute distress noted.
[2024-06-23 08:21] VITALS: BP 154/69; PULSE 100; RESP 18; TEMP 36.1; O2SAT 98
[2024-06-23 08:23] LABS: Glucose, Whole Blood 150 mg/dL (60-115)
[2024-06-23] MEDS: Aspirin Enteric Coated 81 MG TABLET.DR PO (08:56)
[2024-06-23] MEDS: Fluticasone Propionate Nasal 16 GM SPRAY 1 SPRAY NOSTRIL-B (08:56)
[2024-06-23] MEDS: risperiDONE 0.5 MG TABLET PO (08:56)
[2024-06-23] MEDS: SITagliptin Phosphate 100 MG TABLET PO (08:56)
[2024-06-23] MEDS: Empagliflozin 10 MG TABLET PO (08:56)
[2024-06-23] MEDS: Docusate Sodium 100 MG CAPSULE PO (08:56)
--- NOTE | 2024-06-23 08:57 | MHC.CM.PN ---
Patient to dc to [facility] for LTC today at 10:30 via BLS. Justin, , RN and guardian aware.
== END 2024-06-23 10:43 | disposition skilled nursing facility (03) ==
LOC: HO.EDOVER 15:53 → HO.IMC 18:55 → HO.S3 05-18 14:27
PROVIDERS: Family Medicine; Hospitalist; Internal Medicine; Nurse Practitioner Acute Care; Physician Assistant Medical; Student in an Organized Health Care Education/Training Program; Admitting Provider Internal Medicine; Visit Provider Internal Medicine
DX: R41.89 Other symptoms and signs involving cognitive functions and awareness (principal); S92.325A Nondisplaced fracture of second metatarsal bone, left foot, initial encounter for closed fracture; W19.XXXA Unspecified fall, initial encounter; Y93.9 Activity, unspecified; Y92.9 Unspecified place or not applicable; Y99.9 Unspecified external cause status; F03.90 Unspecified dementia, unspecified severity, without behavioral disturbance, psychotic disturbance, mood disturbance, and anxiety; H40.9 Unspecified glaucoma; E11.9 Type 2 diabetes mellitus without complications; I10 Essential (primary) hypertension; E78.5 Hyperlipidemia, unspecified; R94.31 Abnormal electrocardiogram [ECG] [EKG]; M47.812 Spondylosis without myelopathy or radiculopathy, cervical region; M16.0 Bilateral primary osteoarthritis of hip; Z79.899 Other long term (current) drug therapy
CPT/HCPCS: 36415; 70450; 72125; 72192; 73502; 73560; 73610; 73630; 80048; 80053; 80076; 81001; 82565; 82607; 82746; 82947; 83036; 83690; 83735; 84439; 84443; 84484; 85025; 85027; 85610; 87635; 93005; 96372; 96374; 97116; 97161; 97162; 97165; 97530; 99221; 99285; J1650; J1885; J2359

== ENCOUNTER → 2024-03-24 15:20 | Outpatient (BNV) | payer MEDICARE, SELFPAY | PROVIDERS: Admitting Provider Internal Medicine; Visit Provider Social Worker | DX: F03.90 Unspecified dementia, unspecified severity, without behavioral disturbance, psychotic disturbance, mood disturbance, and anxiety (principal) | CPT/HCPCS: 99222 ==